=== PATIENT | female | born 1945 | race Caucasian/White ===

== ENCOUNTER 2019-03-13 09:15 | Outpatient (CLI) | payer MEDICARE, OTHER, SELFPAY ==
[2019-03-13 12:37] LABS: Add Urine Microscopic? NO; Appearance Urine Clear (Clear); Bilirubin Urine Negative (Negative); Blood Urine Negative (Negative); Color Urine Yellow (Yellow); Glucose Urine UA Negative (Negative); Ketones Urine Negative (Negative); Leukocyte Esterase Ur Negative LEU/UL (Negative); Nitrate Urine Negative (Negative); Protein Urine Negative (Negative); Specific Grav Ur 1.014 (1.001-1.035); Urobilinogen Urine Negative mg/dL (<2.0)
[2019-03-13 12:48] LABS: Alanine Aminotransferase 17 U/L (4-35); Albumin Level 3.9 g/dL (3.5-5.1); Alkaline Phosphatase 109 U/L (38-126); Aspartate Amino Transferase 24 U/L (14-36); Bilirubin,Total 0.4 mg/dL (0.2-1.3); Blood Urea Nitrogen 19 mg/dL (7-17); CRP 1.3 mg/dL (<1.0); Calcium 9.8 mg/dL (8.4-10.2); Carbon Dioxide 29 mmol/L (22-30); Chloride 97 mmol/L (98-107); Estimated Glomerular Filt Rate > 60; Glucose 97 mg/dL (65-105); Potassium 4.3 mmol/L (3.4-5.0); Sodium 136 mmol/L (137-145)
== END 2019-03-13 09:16 | disposition home or self-care (01) ==
PROVIDERS: PCP Family Medicine; Visit Provider Internal Medicine
DX: L40.50 Arthropathic psoriasis, unspecified (principal)
CPT/HCPCS: 36415; 80053; 81003; 86140

== ENCOUNTER 2019-06-10 09:21 | Outpatient (CLI) | payer MEDICARE, OTHER, SELFPAY ==
--- NOTE | ~2019-06-10 | CT_ITS ---
EXAMINATION: CT chest w con EXAM DATE: 06/10/2019 09:53 INDICATION: Breast cancer. Lung nodule follow-up. Shortness of breath and cough. COPD. TECHNIQUE: Spiral CT of the chest following intravenous injection of 75 mL Omnipaque 350. Axial, cor onal and sagittal images were reviewed. Coronal maximum intensity pixel images of chest reviewed. T luc dose-length product (DLP) for this examination was 230.38 mGy-cm. The exposure was tailored accor ding to patient size (auto mA exposure control), and iterative reconstruction (ASIR) was used as jose tional dose reduction technique. Comparison is made to prior examination from 12/24/2018. FINDINGS: The lingular nodule has increased in size, measuring about 2.0 x 1.0 cm, and the previousl y seen left lower lobe periaortic nodule has also increased in size, measuring about 1.8 x 1.4 cm. Th ere is a 4 mm right lower lobe nodule unchanged. There is right upper lobe scarring, partial laminect tiera. There are no pleural or pericardial effusions. Tracheobronchial tree is patent. There is no mediastinal, hilar or axillary lymphadenopathy. There is no pneumothorax. Heart normal in size. There is mild emphysema. No evidence of coronary arterial calcification. Left renal lesion only smal l portion was imaged today, most likely a cyst. There is moderate thoracic spondylosis without osteo blastic or osteolytic lesions identified. IMPRESSION: Interval increase in size of both the left lower lobe periaortic nodule and the lingular nodule, suspicious for malignancy. Mild emphysema. Reviewed, dictated and finalized at location A. IMPRESSION: Interval increase in size of both the left lower lobe periaortic no dule and the lingular nodule, suspicious for malignancy. Mild emphysema.
[2019-06-10 09:48] LABS: Estimated Glomerular Filt Rate > 60
== END 2019-06-10 09:22 | disposition home or self-care (01) ==
LOC: ANHIMG 09:25
PROVIDERS: PCP Family Medicine; Visit Provider Internal Medicine Hematology & Oncology
DX: R91.1 Solitary pulmonary nodule (principal)
CPT/HCPCS: 36415; 71260; Q9967

== ENCOUNTER 2019-06-25 09:07 | Outpatient (CLI) | payer MEDICARE, OTHER, SELFPAY ==
[2019-06-24 16:52] VITALS: BMI 33.0
[2019-06-25] VITALS (10 sets, daily range): BP systolic 125–149; BP diastolic 57–83; PULSE 62–79; RESP 14–18; TEMP 36.3; O2SAT 90–96
--- NOTE | ~2019-06-25 | XR_ITS ---
EXAMINATION: XR chest 1V portable EXAM DATE: 06/25/2019 15:21 INDICATION: 3 hours post lung biopsy. TECHNIQUE: Portable AP frontal chest x-ray was obtained. Comparison is made to prior examination from earlier same date. FINDINGS: Left midlung zone nodule identified. No evidence of postprocedure pneumothorax. The cardiom ediastinal silhouette is prominent but magnified on this AP technique. There are mild bony degener ative changes. IMPRESSION: No evidence postprocedure pneumothorax. Reviewed, dictated and finalized at location A.
--- NOTE | ~2019-06-25 | XR_ITS ---
EXAMINATION: XR chest 1V DATE: 06/25/2019 12:39 INDICATION: Left lung nodule status post percutaneous biopsy. TECHNIQUE: A single frontal view of the chest was obtained. COMPARISON: Chest single view 01/30/2019 FINDINGS: There is a nodule in left midlung zone. No pleural effusion or pneumothorax. The heart size is normal. IMPRESSION: 1. Nodule in left midlung zone suspicious for malignancy. Reviewed, dictated and finalized at location A.
--- NOTE | ~2019-06-25 | CT_ITS ---
EXAMINATION: CT biopsy lung DATE: 06/25/2019 12:53 INDICATION: Lung nodule. TECHNIQUE: The procedure including the risks, benefits, and alternatives and possibility of chest tub e placement were discussed with the patient. Risks discussed included infection, approximately 1/20 r isk of symptomatic hemorrhage beyond mild hemoptysis, approximately 1/3 risk of pneumothorax, approxi mately 1/10 risk of pneumothorax severe enough to warrant chest tube placement, and rarely . The patient understood the risks and agreed to proceed. The patient was placed supine. The skin overlyi ng the left lung was prepped and draped in sterile fashion. Anesthetic was administered with 1% lido sally subcutaneously. A 19 gauge outer needle was advanced under CT guidance to the lesion of intere st. A 20 gauge core biopsy needle was then used to obtain 4 core biopsy specimens. The needle was rem mitchell and the entry site was cleaned and dressed. The mA was adjusted according to patient size. Itera tive reconstruction technique was employed. The dose-length product was 191.79 mGy-cm. There were no immediate complications. FINDINGS: CT images demonstrate the outer needle tip adjacent to a 1.4 cm nodule in the lingula. IMPRESSION: 1. CT-guided core needle biopsy of a 1.4 cm nodule in the lingula. Reviewed, dictated and finalized at location A.
--- NOTE | ~2019-06-25 | XR_ITS ---
EXAMINATION: XR chest 1V portable DATE: 06/25/2019 13:36 INDICATION: Left lung nodule status post percutaneous biopsy. TECHNIQUE: A single frontal view of the chest was obtained. COMPARISON: Chest single view at 1:32 PM FINDINGS: There are nodules in superior lingula and superior segment left lower lobe. No pleural effu rock or pneumothorax. The heart size is normal. IMPRESSION: 1. Nodules in left lung suspicious for malignancy. Reviewed, dictated and finalized at location A.
[2019-06-25 09:51] LABS: Mean Platelet Volume 10.2 fl (7.4-10.4); Platelet Count Result 221 k/mm3 (150-375)
[2019-06-25 10:03] LABS: Prothrombin Time 12.4 Seconds (11.1-14.7)
--- NOTE | 2019-06-25 14:44 | SUR.PHASEII ---
1444 - dr. ray called with pt's O2 sat on RA. ranges from 85%-90%. will continue to monitor.
--- NOTE | 2019-06-25 15:39 | SUR.PHASEII ---
1538 - 3rd xrays results noted. dr. ray okayed for pt to discharge home. pt denies SOB and discomfort. iv dc'd
== END 2019-06-25 09:08 | disposition home or self-care (01) ==
LOC: SURGERY 09:17 → ANHIMG 09:17
PROVIDERS: Radiology Diagnostic Radiology; PCP Family Medicine; Visit Provider Internal Medicine Hematology & Oncology
DX: R91.8 Other nonspecific abnormal finding of lung field (principal); C34.92 Malignant neoplasm of unspecified part of left bronchus or lung
CPT/HCPCS: 32405; 36415; 71045; 77012; 85049; 85610; 88305; 88342

== ENCOUNTER 2019-07-23 07:13 | Outpatient (CLI) | payer MEDICARE, OTHER, SELFPAY ==
--- NOTE | ~2019-07-23 | PE_ITS ---
EXAMINATION: PET skull to mid thigh DATE: 07/23/2019 10:05 INDICATION: Left breast malignant cancer TECHNIQUE: Blood glucose level was 106 mg/dL. 10.078 mCi of 18-fluorodeoxyglucose (18-FDG) was admini stered i.v. Low dose computed tomography (CT) images were acquired from the base of the brain to the proximal thighs for attenuation correction and anatomic localization. Positron emission tomography (P ET) images were acquired in the same distribution beginning 82 minutes after injection. Images includ ing fused PET/CT images were reconstructed in axial, coronal, and sagittal planes. Automated exposure control technique was employed. The dose-length product was 851.30mGy-cm. COMPARISON: 01/15/2019 FINDINGS: Head/neck: There is symmetric increased activity in the oral cavity, palatine tonsils, parotid glands, submandi bular glands, laryngeal muscles and ocular muscles without CT correlate, likely physiologic. No patho logically enlarged cervical lymphadenopathy or suspicious foci of increased FDG uptake in the visuali zed head or neck. Chest: Interval increase in size of a previously 1.8 x 0.6 cm, now 2.1 x 1.2 cm FDG avid spiculated nodule a t the lingula with maximal SUV of 4.7. Additional 2.2 x 1.5 cm nodule in the superior segment of the left lower lobe with maximal SUV of 12.3 which is also increased in size from 1.3 x 1.0 cm. Partial r ight upper lobectomy with suture line along the right major fissure. No interval change in an 8 mm no dule in the posterior segment of the right upper lobe which is without increased FDG uptake. There is respiratory motion with scattered mild atelectasis as well as small regions of more lucent air micheal ing related to small airway disease. No pneumonia or new pulmonary nodules identified. No pleural eff usion. Cardiomegaly. Lipomatous hypertrophy of the atrial septum. No pericardial effusion. No patholo gically enlarged or FDG avid thoracic lymphadenopathy. Abdomen/pelvis/proximal thighs: Physiologic renal accumulation and excretion of FDG activity in the kidneys, bladder and along portio ns of ureters. 3.8 cm photopenic cyst at the upper pole of the left kidney. Normal degree and heterog enous pattern of increased uptake throughout the liver without radiologic correlate or dominant FDG a vid lesion. The gallbladder, pancreas, spleen and bilateral adrenal glands are normal. Mild uptake sc attered throughout the bowels without radiologic correlate, also likely physiologic. There is mild co lonic diverticulosis with a sigmoid predominance. There is no adjacent inflammatory change to suggest diverticulitis. Bladder, anteverted uterus and bilateral adnexa are unremarkable. Musculoskeletal: Severe spondylosis in the cervical, thoracic and lumbar spine. 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 No suspicious lytic, bl astic or FDG avid bone lesions. IMPRESSION: 1. Interval increase in size of 2 spiculated FDG avid nodules in the left lower lobe and lingula most concerning for impression of metastatic disease with differential including primary lung cancer or i nfectious/inflammatory nodules. 2. No other lesions suspicious for metastatic disease. Reviewed, dictated and finalized at location A. IMPRESSION: 1. Interval increase in size of 2 spiculated FDG avid nodules in the left lower lobe and lingula most concerning for impression of metastatic disease with dif ferential including primary lung cancer or infectious/inflammatory nodules. 2. No other lesions suspicious for metastatic disease.
[2019-07-23 07:47] LABS: Glucose Point of Care 106 (65-105)
== END 2019-07-23 07:14 | disposition home or self-care (01) ==
PROVIDERS: PCP Family Medicine; Visit Provider Internal Medicine Hematology & Oncology
DX: C50.812 Malignant neoplasm of overlapping sites of left female breast (principal); Z17.0 Estrogen receptor positive status [ER+]; R91.8 Other nonspecific abnormal finding of lung field
CPT/HCPCS: 78815; A9552

== ENCOUNTER 2019-09-19 09:09 | Outpatient (CLI) | payer MEDICARE, OTHER, SELFPAY ==
--- NOTE | ~2019-09-19 | MM_ITS ---
EXAMINATION: MM screening maggy BI w que HISTORY: Screening TECHNIQUE: Craniocaudal and mediolateral oblique 3-D tomosynthesis images were obtained and synthetic 2-D images were generated. CAD analysis was submitted and interpreted. COMPARISON: Comparison to multiple prior studies sequentially, with oldest reviewed study dated 08/05. BREAST PARENCHYMAL COMPOSITION: There are scattered areas of fibroglandular density. FINDINGS: There is no evidence of suspicious mass, calcification, or architectural distortion to sugg est malignancy in either breast. There has been no suspicious interval change. IMPRESSION: 1. No mammographic evidence of malignancy. 2. Recommend routine screening mammography in one year. BI-RADS Category 1: Negative Reviewed, dictated and finalized at location A.
== END 2019-09-19 09:10 | disposition home or self-care (01) ==
LOC: ANHIMG 09:10
PROVIDERS: PCP Family Medicine; Visit Provider Internal Medicine Hematology & Oncology
DX: Z12.31 Encounter for screening mammogram for malignant neoplasm of breast (principal)
CPT/HCPCS: 77063; 77067

== ENCOUNTER 2019-10-25 09:26 | Outpatient (CLI) | payer MEDICARE, SELFPAY ==
[2019-10-25 09:58] LABS: Hematocrit 44.3 % (37.0-47.0); Hemoglobin 13.7 g/dL (12.0-15.0); Mean Corpuscular HGB Conc 30.9 g/dl (32-36); Mean Corpuscular Hemoglobin 26.3 pg (26-34); Mean Corpuscular Volume 85.2 fl (80-100); Platelet Count Result 241 k/mm3 (150-375); Red Cell Distribution Width 18.3 % (11.5-14.5); White Blood Count 7.8 K/mm3 (4.5-10.0)
[2019-10-25 11:37] LABS: Alanine Aminotransferase 12 U/L (4-35); Albumin Level 3.9 g/dL (3.5-5.1); Alkaline Phosphatase 100 U/L (38-126); Anion Gap 6 mmol/L (8-16); Aspartate Amino Transferase 20 U/L (14-36); Bilirubin,Total 0.3 mg/dL (0.2-1.3); Blood Urea Nitrogen 14 mg/dL (7-17); Calcium 9.6 mg/dL (8.4-10.2); Carbon Dioxide 31 mmol/L (22-30); Chloride 100 mmol/L (98-107); Estimated Glomerular Filt Rate > 60; Glucose 130 mg/dL (65-105); Potassium 4.7 mmol/L (3.4-5.0); Sodium 137 mmol/L (137-145)
== END 2019-10-25 09:27 | disposition home or self-care (01) ==
PROVIDERS: PCP Family Medicine; Visit Provider Internal Medicine
DX: L40.50 Arthropathic psoriasis, unspecified (principal); M19.90 Unspecified osteoarthritis, unspecified site
CPT/HCPCS: 36415; 80053; 85027

== ENCOUNTER 2019-11-21 10:30 | Outpatient (NON) | payer MEDICARE, OTHER, SELFPAY ==
[2019-11-22 13:59] LABS: SARS-CoV-2 RNA PCR Negative
== END 2019-11-21 10:31 ==
PROVIDERS: PCP Family Medicine; Visit Provider Family Medicine
DX: Z20.828 Contact with and (suspected) exposure to other viral communicable diseases (principal); R68.89 Other general symptoms and signs
CPT/HCPCS: 87635; C9803; U0003

== ENCOUNTER 2019-11-29 08:43 | Outpatient (CLI) | payer MEDICARE, OTHER, SELFPAY ==
--- NOTE | ~2019-11-29 | CT_ITS ---
EXAMINATION: CT chest w con DATE: 11/29/2019 09:31 INDICATION: Non-small cell cancer of the left lung TECHNIQUE: Transaxial computed tomographic images of the chest were obtained after the administration of 75 cc of Omnipaque 350 intravenous contrast. The dose-length product (DLP) was 216.53 mGy-cm. Ite rative reconstruction was used. COMPARISON: 07/23/2019, 06/10/2019 FINDINGS: There are changes of right partial pneumonectomy. A 1.6 x 1.0 cm nodule in the lingula has decreased in size, previously measuring 2.1 x 1.2 cm. A 1.1 x 0.6 cm nodule in the superior segment o f the left lower lobe previously measured 2.2 x 1.5 cm. No new pulmonary nodules are identified. Ther e is no pleural effusion or pneumothorax. Mild dependent atelectasis is noted. There is stable cardio megaly. No pathologically enlarged thoracic lymph nodes are identified. There is severe thoracic spon dylosis. IMPRESSION: 1. Interval response to therapy as evidenced by decrease in size of nodules in the lingula and superi or segment of the left lower lobe. Reviewed, dictated and finalized at location A. IMPRESSION: 1. Interval response to therapy as evidenced by decrease in size of nodules in the lingula and superior segment of the left lower lobe.
[2019-11-29 09:26] LABS: Estimated Glomerular Filt Rate > 60
== END 2019-11-29 08:44 | disposition home or self-care (01) ==
PROVIDERS: PCP Family Medicine; Visit Provider Internal Medicine Hematology & Oncology
DX: C34.92 Malignant neoplasm of unspecified part of left bronchus or lung (principal)
CPT/HCPCS: 71260; Q9967

== ENCOUNTER 2019-12-04 09:14 | Outpatient (CLI) | payer MEDICARE, OTHER, SELFPAY ==
[2019-12-04 09:33] LABS: Hematocrit 44.3 % (37.0-47.0); Hemoglobin 13.6 g/dL (12.0-15.0); Mean Corpuscular HGB Conc 30.7 g/dl (32-36); Mean Corpuscular Hemoglobin 26.5 pg (26-34); Mean Corpuscular Volume 86.4 fl (80-100); Mean Platelet Volume 9.5 fl (7.4-10.4); Platelet Count Result 230 k/mm3 (150-375); Red Blood Count 5.13 M/mm3 (4.2-5.4); Red Cell Distribution Width 19.9 % (11.5-14.5); White Blood Count 6.3 K/mm3 (4.5-10.0)
[2019-12-04 09:40] LABS: Blood Urea Nitrogen 12 mg/dL (8-26); Carbon Dioxide 30 mmol/L (22-30); Chloride 97 mmol/L (98-109); Estimated Glomerular Filt Rate > 60; Glucose 114 mg/dL (70-105); Potassium 3.6 mmol/L (3.5-4.9); Sodium 139 mmol/L (138-146)
[2019-12-04 11:05] LABS: Alanine Aminotransferase 14 U/L (4-35); Albumin Level 3.9 g/dL (3.5-5.1); Alkaline Phosphatase 100 U/L (38-126); Anion Gap 7 mmol/L (8-16); Aspartate Amino Transferase 22 U/L (14-36); Bilirubin,Total 0.3 mg/dL (0.2-1.3); Blood Urea Nitrogen 13 mg/dL (7-17); Calcium 9.7 mg/dL (8.4-10.2); Carbon Dioxide 33 mmol/L (22-30); Chloride 99 mmol/L (98-107); Estimated Glomerular Filt Rate > 60; Glucose 117 mg/dL (65-105); Potassium 3.9 mmol/L (3.4-5.0); Sodium 139 mmol/L (137-145)
== END 2019-12-04 09:15 | disposition home or self-care (01) ==
LOC: ANHLAB 09:16
PROVIDERS: PCP Family Medicine; Visit Provider Internal Medicine Hematology & Oncology
DX: C34.92 Malignant neoplasm of unspecified part of left bronchus or lung (principal)
CPT/HCPCS: 36415; 80048; 80053; 85027

== ENCOUNTER 2020-02-21 06:51 | Outpatient (CLI) | payer MEDICARE, OTHER, SELFPAY ==
[2020-02-21 07:40] VITALS: PULSE 88; O2SAT 90
[2020-02-21 07:45] VITALS: PULSE 97; O2SAT 85
[2020-02-21 07:50] VITALS: PULSE 100; O2SAT 86
[2020-02-21 07:55] VITALS: PULSE 104; O2SAT 88
[2020-02-21 08:00] VITALS: PULSE 108; O2SAT 90
[2020-02-21 08:15] VITALS: PULSE 88; O2SAT 90
--- NOTE | 2020-02-21 10:00 | HOMEO2EVAL ---
Home Oxygen Evaluation RC: Home Oxygen (O2) Evaluation Start: 02/21/20 09:57 Freq: Status: Active Protocol: RPE Activity Type Activity Date Activity User E-Sign Co-Sign Detail Recorded Client Recorded Date Recorded By Document 02/21/20 07:40 [email or web address] 02/21/20 10:00 DJO Document 02/21/20 07:45 [email or web address] 02/21/20 10:00 DJO Document 02/21/20 07:50 [email or web address] [email or web address] 02/21/20 10:00 DJO Document 02/21/20 07:55 [email or web address] [email or web address] 02/21/20 10:00 DJO Document 02/21/20 08:00 [email or web address] [email or web address] 02/21/20 10:00 DJO Document 02/21/20 08:15 [email or web address] [email or web address] 02/21/20 10:00 DJO 02/21/20 02/21/20 02/21/20 07:40 07:45 07:50 Home O2 Evaluation Test Phase Resting Exercise Exercise Oxygen Delivery Room Air Room Air Nasal Cannula Oxygen Flow Rate (L/min) 1 Pulse Oximetry (90-100 %) 90 85 L 86 L Pulse Rate (60-100 beats/min) 88 97 100 Activity Tolerance Rating of Perceived Dyspnea (PD) Ambulation Distance (feet) Treatment Charges O2 Evaluation 02/21/20 02/21/20 02/21/20 07:55 08:00 08:15 Home O2 Evaluation Test Phase Exercise Exercise Resting Oxygen Delivery Nasal Cannula Nasal Cannula Room Air Oxygen Flow Rate (L/min) 2 3 Pulse Oximetry (90-100 %) 88 L 90 90 Pulse Rate (60-100 beats/min) 104 H 108 H 88 Activity Tolerance Good Rating of Perceived Dyspnea (PD) +1 Mild, Noticeable to the Participant but Not to an Observer Ambulation Distance (feet) 750 Treatment Charges
--- NOTE | 2020-02-21 11:07 | WPDPFTINT ---
PFT Interpretation This is a pulmonary function test with pre and post-bronchodilator spirometry, plethysmography and diffusing capacity. The test was performed and results interpreted in accordance with the 2019 and 2005 ATS/ERS Task Force guidelines respectively using the Aren/Roseanna reference equations. Findings: Spirometry: There is decreased maximal expiratory airflow at all lung volumes with a concave expiratory flow tracing. The pre-bronchodilator FVC is 1.56 L, 67% predicted. The pre-bronchodilator FEV1 is 0.94 L, 58% predicted. The FEV1:FVC ratio is 60%. The post-bronchodilator FVC is 1.79 L, representing a 15% increase. The post-bronchodilator FEV1 is 1.04 L, representing a 10% increase. Plethysmography: The total lung capacity is 2.82 L, 71% predicted. The functional residual capacity is 1.29 L, 62% predicted. The residual volume is 1.26 L, 78% predicted. Diffusing capacity: The absolute diffusing capacity is 6.6, 35% predicted. The diffusing capacity corrected for alveolar volume is 2.81, 79% predicted. Impression: There is a combined obstructive and restrictive ventilatory abnormality. There are no guidelines to assign the severity of obstruction or restriction with a combined abnormality. In my opinion, given the concaved expiratory flow tracing, decreased FEV1:FVC ratio and a significant response to bronchodilators, I would say there is a moderate obstructive abnormality and a minimal restrictive abnormality resulting in a moderately severe reduction in the FEV1. There is significant improvement after inhaling a single dose of albuterol. The absolute diffusing capacity is severely decreased and remains mildly decreased when corrected for alveolar volume. There are no prior studies for comparison.
== END 2020-02-21 06:52 | disposition home or self-care (01) ==
LOC: ANHPFT 06:52
PROVIDERS: PCP Family Medicine; Visit Provider Internal Medicine Critical Care Medicine
DX: J44.9 Chronic obstructive pulmonary disease, unspecified (principal); Z94.2 Lung transplant status
CPT/HCPCS: 94060; 94618; 94726; 94729

== ENCOUNTER 2020-03-04 07:47 | Outpatient (CLI) | payer MEDICARE, OTHER, SELFPAY ==
--- NOTE | ~2020-03-04 | CT_ITS ---
EXAMINATION: CT chest w con EXAM DATE: 03/04/2020 09:08 INDICATION: Left-sided non-small cell lung cancer. TECHNIQUE: Spiral CT of the chest following intravenous injection of 75 mL Omnipaque 350. Axial, cor onal and sagittal images were reviewed. Coronal maximum intensity pixel images of chest reviewed. T he dose-length product (DLP) for this examination was 207.89 mGy-cm. The exposure was tailored accor ding to patient size (auto mA exposure control), and iterative reconstruction (ASIR) was used as jose tional dose reduction technique. Comparison is made to prior examination from 11/29/2019. FINDINGS: There is right upper lobe scarring, density material consistent with partial pneumonectomy . There is lingular and left lower lobe scarring, in location of previously treated malignancies. Int erval decrease in size of right upper lobe nodule measuring 5 mm (was about 6 or 7 on prior study). T here is mild to moderate emphysema. There are no pleural or pericardial effusions. Tracheobronchial tree is patent. There is no media stinal, hilar or axillary lymphadenopathy. There is no pneumothorax. Heart normal in size. Ther e is mild coronary arterial calcification, arterial sclerosis. Cholecystectomy. There is moderate t horacic spondylosis without osteoblastic or osteolytic lesions identified. IMPRESSION: 1. Right upper lobe 5 mm nodule, slight decrease in size. 2. Lingular and left lower lobe scarring, treated malignancy. 3. Stable right upper lobe surgical changes. 4. Mild to moderate emphysema. Reviewed, dictated and finalized at location A. SERVICER
[2020-03-04 08:55] LABS: Estimated Glomerular Filt Rate > 60
== END 2020-03-04 07:48 | disposition home or self-care (01) ==
PROVIDERS: Visit Provider Internal Medicine Hematology & Oncology
DX: C34.92 Malignant neoplasm of unspecified part of left bronchus or lung (principal)
CPT/HCPCS: 71260; Q9967

== ENCOUNTER 2020-04-21 09:57 | Outpatient (CLI) | payer MEDICARE, OTHER, SELFPAY ==
[2020-04-21 10:13] LABS: Hematocrit 44.8 % (37.0-47.0); Hemoglobin 14.3 g/dL (12.0-15.0); Mean Corpuscular HGB Conc 31.9 g/dl (32-36); Mean Corpuscular Hemoglobin 27.9 pg (26-34); Mean Corpuscular Volume 87.5 fl (80-100); Mean Platelet Volume 9.4 fl (7.4-10.4); Platelet Count Result 221 k/mm3 (150-375); Red Blood Count 5.12 M/mm3 (4.2-5.4); Red Cell Distribution Width 18.9 % (11.5-14.5); White Blood Count 8.4 K/mm3 (4.5-10.0)
[2020-04-21 10:19] LABS: Add Urine Microscopic? YES; Appearance Urine Clear (Clear); Color Urine Yellow (Yellow)
[2020-04-21 10:20] LABS: Bilirubin Urine Negative (Negative); Blood Urine Negative (Negative); Glucose Urine UA Negative (Negative); Ketones Urine Negative (Negative); Nitrate Urine Negative (Negative); Protein Urine Negative (Negative)
[2020-04-21 10:21] LABS: Leukocyte Esterase Ur Trace LEU/UL (Negative); Urobilinogen Urine 0.2 mg/dL (<2.0)
[2020-04-21 10:34] LABS: RBC Urine None seen /hpf (0-2); Squamous Epithelial Cell Urine Few /hpf (Few); WBC Urine 0-3 /hpf (0-3)
[2020-04-21 10:35] LABS: Bacteria Urine None seen /hpf
[2020-04-21 12:48] LABS: Alanine Aminotransferase 18 U/L (4-35); Albumin Level 3.9 g/dL (3.5-5.1); Alkaline Phosphatase 92 U/L (38-126); Anion Gap 3 mmol/L (8-16); Aspartate Amino Transferase 30 U/L (14-36); Bilirubin,Total 0.4 mg/dL (0.2-1.3); Blood Urea Nitrogen 17 mg/dL (7-17); CRP 1.3 mg/dL (<1.0); Calcium 9.8 mg/dL (8.4-10.2); Carbon Dioxide 36 mmol/L (22-30); Chloride 101 mmol/L (98-107); Estimated Glomerular Filt Rate > 60; Glucose 109 mg/dL (65-105); Potassium 3.9 mmol/L (3.4-5.0); Sodium 140 mmol/L (137-145)
[2020-04-21 13:15] LABS: Erythrocyte Sedimentation Rate 17 mm/hr (0-20)
== END 2020-04-21 09:58 | disposition home or self-care (01) ==
LOC: ANHLAB 09:58
PROVIDERS: PCP Physician Assistant; Visit Provider Internal Medicine
DX: L40.50 Arthropathic psoriasis, unspecified (principal); M19.90 Unspecified osteoarthritis, unspecified site; L40.9 Psoriasis, unspecified; Z79.899 Other long term (current) drug therapy
CPT/HCPCS: 36415; 80053; 81001; 85027; 85652; 86140

== ENCOUNTER 2020-05-18 08:38 | Outpatient (CLI) | payer MEDICARE, OTHER, SELFPAY ==
--- NOTE | ~2020-05-18 | CT_ITS ---
EXAMINATION: CT diagnostic chest w con EXAM DATE: 05/18/2020 09:22 INDICATION: Left lung non-small cell lung cancer follow-up. Breast cancer. TECHNIQUE: Spiral CT of the chest following intravenous injection of 75 mL Omnipaque 350. Axial, cor onal and sagittal images were reviewed. Coronal maximum intensity pixel images of chest reviewed. Latesha calle dose-length product (DLP) for this examination was 209.37 mGy-cm. The exposure was tailored accor ding to patient size (auto mA exposure control), and iterative reconstruction (ASIR) was used as jose tional dose reduction technique. Comparison is made to prior examination from 03/04/2020. FINDINGS: Partial right upper lobe pneumonectomy, with suture material. There is approximately 6 mm nodular density in the suprahilar region, stable. Mild to moderate emphysema. There has been interval development of multifocal bibasilar and left upper lobe airspace disease most likely acute infectious process/pneumonia. Please clinically correlate for any acute symptoms. There is segmental lingular atelectasis which is also new. Previously described treated lingular and left lower lobe chronic scarring less well appreciated due to this acute airspace disease. There are no pleural or pericardial effusions. Tracheobronchial tree is patent. There is no media stinal, hilar or axillary lymphadenopathy. There is no pneumothorax. Heart normal in size. Ther e is mild coronary arterial calcification, arterial sclerosis. Upper abdomen is unremarkable. Ther e is thoracic spondylosis without osteoblastic or osteolytic lesions identified. IMPRESSION: 1. Development of scattered multifocal bibasilar and left upper lobe opacities, appearance most cons istent with pneumonia. Correlate for any acute symptoms. 2. Lingular subsegmental atelectasis. 3. Stable right upper lobe surgical changes, 5 mm nodular density. 4. Mild to moderate emphysema. I discussed suspicion of acute airspace disease with Bette, a nurse in the office of the ordering cl inician David Michaud MD at 05/18/2020 10:51 CDT. Reviewed, dictated and finalized at location A. IMPRESSION: 1. Development of scattered multifocal bibasilar and left upper lobe opacities , appearance most consistent with pneumonia. Correlate for any acute symptoms. 2. Lingular subsegmental atelectasis. 3. Stable right upper lobe surgical changes, 5 mm nodular density. 4. Mild to moderate emphysema. I discussed suspicion of acute airspace disease with Bette, a nurse in the off ice of the ordering clinician David Michaud MD at 05/18/2020 10:51 CDT.
== END 2020-05-18 08:39 | disposition home or self-care (01) ==
PROVIDERS: PCP Physician Assistant; Visit Provider Internal Medicine Hematology & Oncology
DX: C34.92 Malignant neoplasm of unspecified part of left bronchus or lung (principal); J43.9 Emphysema, unspecified
CPT/HCPCS: 71260; Q9967

== ENCOUNTER 2020-07-27 08:27 | Outpatient (CLI) | payer MEDICARE, OTHER, SELFPAY ==
--- NOTE | ~2020-07-27 | CT_ITS ---
EXAMINATION: CT diagnostic chest w con EXAM DATE: 07/27/2020 09:06 INDICATION: Non-small cell lung cancer. TECHNIQUE: Spiral CT of the chest following intravenous injection of 75 mL Omnipaque 350. Axial, cor onal and sagittal images of the chest were reviewed. Coronal maximum intensity pixel images of chest reviewed. The dose-length product (DLP) for this examination was 170.06 mGy-cm. The exposure was t ailored according to patient size (auto mA exposure control), and iterative reconstruction (ASIR) was used as additional dose reduction technique. Comparison is made to prior examination from 05/18/2020. FINDINGS: Right upper lobe partial pneumonectomy, stable surgical changes and 6 mm suprahilar nodule on image 31. Previously seen basilar pneumonia, has resolved, but there is some residual lingular agudelo bsegmental atelectasis. Mild to moderate emphysema. There are no pleural or pericardial effusions. Tracheobronchial tree is patent. There is no mediastinal, hilar or axillary lymphadenopathy. Ther e is no pneumothorax. Mild cardiomegaly. There is mild coronary arterial calcification, arterial s clerosis. Incompletely imaged left renal lesion measuring fluid density, probably cyst up to 3.4 cm. There is moderate thoracic spondylosis without osteoblastic or osteolytic lesions identified. IMPRESSION: 1. Resolution of previously seen basilar pneumonia. Some residual lingular subsegmental atelectasis. 2. Stable right upper lobe scarring, suprahilar nodule. 3. Mild to moderate emphysema. Reviewed, dictated and finalized at location B. IMPRESSION: 1. Resolution of previously seen basilar pneumonia. Some residual lingular sub segmental atelectasis. 2. Stable right upper lobe scarring, suprahilar nodule. 3. Mild to moderate emphysema.
[2020-07-27 09:01] LABS: Estimated Glomerular Filt Rate > 60
== END 2020-07-27 08:28 | disposition home or self-care (01) ==
PROVIDERS: PCP Physician Assistant; Visit Provider Internal Medicine Hematology & Oncology
DX: C34.92 Malignant neoplasm of unspecified part of left bronchus or lung (principal); R91.8 Other nonspecific abnormal finding of lung field; J43.9 Emphysema, unspecified
CPT/HCPCS: 71260; Q9967

== ENCOUNTER 2020-08-13 12:31 | Outpatient (CLI) | payer MEDICARE, OTHER, SELFPAY ==
--- NOTE | ~2020-08-13 | MMUS_ITS ---
EXAMINATION: MM diagnostic maggy BI w que, US breast BI complete HISTORY: Left breast pain for 3 months. TECHNIQUE: Additional 3-D tomosynthesis images of the breasts were performed and synthetic 2-D images were generated. CAD analysis was submitted and interpreted. High resolution bilateral complete breas t ultrasound was performed. COMPARISON: Comparison to multiple prior studies sequentially, with oldest reviewed study dated 08/05. BREAST PARENCHYMAL COMPOSITION: Breast composed of scattered areas of fibroglandular density. FINDINGS: MAMMOGRAPHIC FINDINGS: There is a small circumscribed mass in the lower inner quadrant of the right breast measuring 8 mm. N o other masses, calcifications or architectural distortion are identified in either breast to suggest malignancy. ULTRASOUND: Complete right breast ultrasound: At 3:00, 5 cm from the nipple, there is an 8 mm septated cyst. At 6 :00, 4 cm from the nipple there is a 5 mm oval circumscribed hypoechoic mass with parallel orientatio n, no posterior features and no internal vascularity, likely benign. At 8:00, 3 cm from the nipple, t here is an oval circumscribed hypoechoic mass without internal vascularity or posterior features john uring 3 mm, likely benign. Complete left breast ultrasound: Normal heterogeneous echotexture without focal mass. IMPRESSION: 1. No evidence for malignancy in the left breast. 2. Probable benign sonographic masses of the right breast. Complicated cyst corresponds to focal mass seen on mammography at the 3:00 position of the right breast. Six-month follow-up right breast ultra sound recommended. BI-RADS category 3, probably benign findings. Reviewed, dictated and finalized at location A. IMPRESSION: 1. No evidence for malignancy in the left breast. 2. Probable benign sonographic masses of the right breast. Complicated cyst cor responds to focal mass seen on mammography at the 3:00 position of the right br east. Six-month follow-up right breast ultrasound recommended. BI-RADS category 3, probably benign findings.
== END 2020-08-13 12:32 | disposition home or self-care (01) ==
LOC: ANHIMG 12:34
PROVIDERS: PCP Family Medicine; Visit Provider Family Medicine
DX: N64.4 Mastodynia (principal); Z85.3 Personal history of malignant neoplasm of breast
CPT/HCPCS: 76641; 77062; 77066; G0279

== ENCOUNTER 2020-11-16 07:57 | Outpatient (CLI) | payer MEDICARE, OTHER, SELFPAY ==
--- NOTE | ~2020-11-16 | CT_ITS ---
EXAMINATION: CT diagnostic chest w con EXAM DATE: 11/16/2020 08:41 INDICATION: Non small cell cancer of LT lung. TECHNIQUE: Spiral CT of the chest following intravenous injection of 75 mL Omnipaque 350. Axial, cor onal and sagittal images of the chest were reviewed. Coronal maximum intensity pixel images of chest reviewed. The dose-length product (DLP) for this examination was 179.36 mGy-cm. The exposure was t ailored according to patient size (auto mA exposure control), and iterative reconstruction (ASIR) was used as additional dose reduction technique. Comparison is made to prior examination from 07/27/2020. FINDINGS: Surgical changes from partial right-sided pneumonectomy. Small amount of right suprahilar scarring unchanged. There is mild emphysema and hyperinflation. There are no pleural or pericardial e ffusions. Tracheobronchial tree is patent. There is no mediastinal, hilar or axillary lymphadenop athy. There is no pneumothorax. Heart normal in size. There is mild coronary arterial calcifica tion, arterial sclerosis. Incompletely imaged right renal lesion, imaged portion consistent with cys t measuring 3.4 cm. There is thoracic spondylosis without osteoblastic or osteolytic lesions identif ied. Possible subacute left 3rd, 4th rib fractures anterolaterally. IMPRESSION: 1. Stable appearance to partial right pneumonectomy, suprahilar nodular scarring. 2. Mild emphysema and hyperinflation. Reviewed, dictated and finalized at location A. IMPRESSION: 1. Stable appearance to partial right pneumonectomy, suprahilar nodular scarri ng. 2. Mild emphysema and hyperinflation.
[2020-11-16 08:33] LABS: Estimated Glomerular Filt Rate > 60
== END 2020-11-16 07:58 | disposition home or self-care (01) ==
PROVIDERS: PCP Family Medicine; Visit Provider Internal Medicine Hematology & Oncology
DX: C34.92 Malignant neoplasm of unspecified part of left bronchus or lung (principal); Z90.2 Acquired absence of lung [part of]; J43.9 Emphysema, unspecified; R91.8 Other nonspecific abnormal finding of lung field
CPT/HCPCS: 71260; Q9967

== ENCOUNTER 2020-12-14 08:39 | Outpatient (CLI) | payer MEDICARE, OTHER, SELFPAY ==
--- NOTE | ~2020-12-14 | DEXA_ITS ---
Bone Density Report Name: BrendaMay Age: 75 Sex: Female Ethnicity: White Date of : 1945 Indication: postmenopausal; height loss; inflammatory bowel disease; prior fracture; asthma or emphysema; rheumatoid arthritis; Referring Provider: David Michaud Study: Bone densitometry was performed. Exam Date: December 14, 2020 Accession number: [id number] Bone Density: Region BMD T-score Z-score Classification AP Spine (L1-L4) 1.067 0.2 2.5 Normal Femoral Neck (Left) 0.601 -2.2 -0.3 Osteopenia Total Hip (Left) 0.744 -1.6 0.1 Osteopenia Total Hip Bilateral Avg 0.764 -1.5 0.3 Osteopenia Femoral Neck (Right) 0.601 -2.2 -0.3 Osteopenia Total Hip (Right) 0.782 -1.3 0.4 Osteopenia World Health Organization criteria for BMD impression classify patients as: Normal (T-score at or above -1.0), Osteopenia (T-score between -1.0 and -2.5), or Osteoporosis (T-score at or below -2.5). 10-year Fracture Risk: FRAX not reported because: Treated for osteoporosis Clinical Information Provided by Patient: Has had a low trauma fracture Smokes Has rheumatoid arthritis Is being treated for osteoporosis Has used the following medications: Vitamin D, Calcium Has the following medical conditions: Asthma or Emphysema, Inflammatory bowel diseases Patient maximum height was 63 Menopause Age: 57 No regular weight bearing exercise Drinks caffeinated beverages Onset of menses at age 14 Number of children 5 Impression: The patient has low bone mass, based on the Left Femoral Neck T-score. The patient has risk factors, including: smoking, previous fracture. Discussion: It is important to ask patients whether they are taking their medications and to encourage continued and appropriate compliance with their osteoporosis therapies to reduce fracture risk. It is also important to review their risk factors and encourage appropriate calcium and vitamin D intakes, exercise, fall prevention and other lifestyle measures. Follow-Up: Consider a repeat BMD and Vertebral Fracture Assessment (VFA) exam in 2 years or sooner if medically necessary, to reassess this patient's status. Reported by: OLLIE on 12/14/2020 9:00:00 AM. Reviewed, dictated and finalized at location AGladis ALFORD
== END 2020-12-14 08:40 | disposition home or self-care (01) ==
LOC: ANHIMG 08:41
PROVIDERS: PCP Family Medicine; Visit Provider Internal Medicine Hematology & Oncology
DX: M81.8 Other osteoporosis without current pathological fracture (principal); M85.89 Other specified disorders of bone density and structure, multiple sites
CPT/HCPCS: 77080

== ENCOUNTER 2021-02-26 11:34 | Outpatient (CLI) | payer MEDICARE, OTHER, SELFPAY ==
--- NOTE | ~2021-02-26 | MM_ITS ---
EXAMINATION: MM diagnostic maggy BI w que HISTORY: Follow-up right breast mass TECHNIQUE: Additional 3-D tomosynthesis images of the breasts were performed and synthetic 2-D images were generated. CAD analysis was submitted and interpreted. COMPARISON: Comparison to multiple prior studies sequentially, with oldest reviewed study dated 08/06. BREAST PARENCHYMAL COMPOSITION: Breast composed of scattered areas of fibroglandular density. FINDINGS: There are no new masses, calcifications or architectural distortion in the right breast to suggest malignancy. Recommend follow-up targeted right breast ultrasound is recommended on prior exam ination dated 08/13/2020. IMPRESSION: 1. Stable bilateral mammogram. No new masses, calcifications or architectural distortion. 2. Targeted right breast ultrasound recommended. BI-RADS Category 0: Incomplete: Needs additional imaging evaluation. Reviewed, dictated and finalized at location A. STATION IMPRESSION: 1. Stable bilateral mammogram. No new masses, calcifications or architectural d istortion. 2. Targeted right breast ultrasound recommended. BI-RADS Category 0: Incomplete: Needs additional imaging evaluation.
== END 2021-02-26 11:35 | disposition home or self-care (01) ==
PROVIDERS: PCP Family Medicine; Visit Provider Internal Medicine Hematology & Oncology
DX: C50.812 Malignant neoplasm of overlapping sites of left female breast (principal); Z17.0 Estrogen receptor positive status [ER+]; R92.8 Other abnormal and inconclusive findings on diagnostic imaging of breast
CPT/HCPCS: 77062; 77066; G0279

== ENCOUNTER 2021-04-23 12:18 | Outpatient (CLI) | payer MEDICARE, OTHER, SELFPAY ==
--- NOTE | ~2021-04-23 | CT_ITS ---
EXAMINATION: CT diagnostic chest wo con EXAM DATE: 04/23/2021 12:43 INDICATION: Left lung cancer. TECHNIQUE: Spiral CT of the chest without contrast. Axial, coronal and sagittal images of the chest were reviewed. Coronal maximum intensity pixel images of chest reviewed. The dose-length product ( DLP) for this examination was 230.38 mGy-cm. The exposure was tailored according to patient size (au to mA exposure control), and iterative reconstruction (ASIR) was used as additional dose reduction te chnique. Comparison is made to prior examination from 11/16/2020. Correlation was made with PET/CT 07/22. FINDINGS: Stable appearance to partial right pneumonectomy and right suprahilar scarring. The left l ower lobe and lingular nodules with increased FDG activity are without recurrence. There is some scar ring in the lingula. There is mild emphysema and hyperinflation. No evidence of a recurrent nodule i n the lingula There are no pleural or pericardial effusions. Tracheobronchial tree is patent. The re is no mediastinal, hilar or axillary lymphadenopathy. There is no pneumothorax. Heart normal i n size. There is mild coronary arterial calcification, arterial sclerosis. Left renal 3.5 cm cyst. There is moderate thoracic spondylosis without osteoblastic or osteolytic lesions identified. Suba cute left 3rd, 4th rib fractures, some progression in interval healing. Some vague chronic sclerosis in the left L1 pedicle. IMPRESSION: 1. Stable partial right pneumonectomy, regions of scarring. 2. Mild emphysema and hyperinflation. Reviewed, dictated and finalized at location A. ER
== END 2021-04-23 12:19 | disposition home or self-care (01) ==
PROVIDERS: PCP Family Medicine; Visit Provider Internal Medicine Hematology & Oncology
DX: C34.92 Malignant neoplasm of unspecified part of left bronchus or lung (principal); I25.10 Atherosclerotic heart disease of native coronary artery without angina pectoris; I70.90 Unspecified atherosclerosis; M47.814 Spondylosis without myelopathy or radiculopathy, thoracic region; N28.1 Cyst of kidney, acquired; J43.9 Emphysema, unspecified
CPT/HCPCS: 71250

== ENCOUNTER 2021-05-04 15:16 | Outpatient (CLI) | payer MEDICARE, OTHER, SELFPAY ==
--- NOTE | ~2021-05-04 | XR_ITS ---
XR wrist RT min 3V 05/04/2021 16:02 Indication: Osteoarthritis. Right wrist pain. Procedure: 4 views right wrist Comparison: No prior studies for comparison. Findings: There is moderate polyarticular osteoarthritis of the wrist involving the radiocarpal, ulna r carpal, multiple intracarpal, triscaphe and first carpal metacarpal joints. There is also degenerat wendy change of the first MCP and IP joints. There is subchondral cyst formation in the lunate. Impression: 1: Moderate-severe polyarticular osteoarthritis. Reviewed, dictated and finalized at location A. Impression: 1: Moderate-severe polyarticular osteoarthritis.
== END 2021-05-04 15:17 | disposition home or self-care (01) ==
PROVIDERS: PCP Family Medicine; Visit Provider Plastic Surgery
DX: M19.031 Primary osteoarthritis, right wrist (principal); M19.041 Primary osteoarthritis, right hand
CPT/HCPCS: 73110

== ENCOUNTER 2021-05-18 11:05 | Outpatient (CLI) | payer MEDICARE, OTHER, SELFPAY ==
--- NOTE | 2021-05-20 22:01 | WPDSLEEPSTUD ---
Sleep Study Date of Study: 05/18/21 Ordering Provider: Watson Moraes APRN Interpreting Physician: Mia Vaz MD Sleep Study Type: Polysomnogram Height: 1.52 m Weight: 75.75 kg Body Mass Index: 32.5 Neck Circumference (inches): 16 [place]: 12 Reason for Sleep Study Chronically tired, on oxygen at 3 L at home, non restorative sleep, napping Sleep History Mayerage is a 75 year old female with COPD, chronic oxygen use since February of 2020, lung cancer currently in remission, iron deficiency anemia, and psoriatic arthritis. She does not awaken from sleep feeling short of breath or awaken at night with heartburn, belching or coughing. She occasionally snores and occasionally this is loud enough that others complain about it. She frequently has trouble sleeping with a cold. She does not wake up gasping for breath at night. She frequently has breathing problems at night observed by others. She rarely sweats excessively at night. She constantly falls asleep during the day although never involuntarily or while driving. She does not have loss of muscle tone with strong emotion. She occasionally has daytime difficulties due to excessive sleepiness. She does not feel paralyzed on waking or falling asleep and does not have vivid dreamlike scenes upon awakening or falling asleep. She does not feel afraid to go to sleep. She occasionally has nightmares and occasionally remembers her dreams. She frequently has racing thoughts. She occasionally feels sad or depressed. She constantly has anxiety. She rarely has muscular tension. She occasionally notices parts of her body jerking. She does not kick at night, does not have crawling or aching feelings in her legs and does not have any kind of leg pain at night. She occasionally has morning jaw pain. She does not grind her teeth during sleep. She constantly is bothered by pain during the day. She occasionally is awakened by pain at night. She constantly wakes up feeling stiff in the morning with sore achy muscles. She does not wake up with pain in the neck and spine. She has fatigue, memory problems, concentration difficulties, nightmares and headaches. Normal bedtime is variable. She does not have a set bedtime. She wakes about twice at night, and stays awake for several hours when she wakes during the night. While awake, she watches TV and goes to the bathroom. She wakes in the morning around 6:00 a.m.. She takes naps in the afternoon or evening. A short nap may be refreshing. She is usually drowsy for 2 hours after waking. She feels better in the afternoon compared to other times of day. Habits: Tobacco: currently 2-3 cigarettes a day. Caffeine: 1 pot of coffee a day. No alcohol or recreational drugs. FORMERLY [facility] Past Medical History Medical History (Updated 05/20/21 @ 22:54 by Mia Vaz MD) Anxiety Arthritis Breast cancer COPD (chronic obstructive pulmonary disease) Dependence on continuous supplemental oxygen Encounter for medication management GERD (gastroesophageal reflux disease) Irritable bowel disease Lung cancer Neuropathy Other specified counseling Psoriatic arthritis Tobacco abuse Surgical History Surgical History H/O cataract extraction History of appendectomy History of carpal tunnel release History of knee replacement History of liver biopsy History of lung surgery History of tonsillectomy Hx of cholecystectomy S/P lumpectomy of breast Family History Family History Mother Diabetes mellitus Family history of lung cancer Family history of malignant neoplasm of uterus Family history of psoriasis Family history of malignant neoplasm Sibling Diabetes mellitus Father Family history of chronic obstructive pulmonary disease Family history of lung cancer Hypertension Family history of cardiovascular disease Grandparent Fam
[2021-05-20 22:03] VITALS: BMI 32.5
== END 2021-05-19 07:30 | disposition home or self-care (01) ==
LOC: ANHCSM 11:05
PROVIDERS: PCP Family Medicine; Visit Provider Nurse Practitioner Family
DX: G47.9 Sleep disorder, unspecified (principal); R06.83 Snoring; G47.61 Periodic limb movement disorder; Z68.32 Body mass index [BMI] 32.0-32.9, adult
CPT/HCPCS: 95810

== ENCOUNTER 2021-05-26 12:33 | Outpatient (CLI) | payer MEDICARE, OTHER, SELFPAY ==
[2021-05-26] VITALS (7 sets, daily range): PULSE 98–116; O2SAT 78–93
[2021-05-26 13:18] LABS: Alveolar/Arterial O2 Gradient 77.4 mmHg; Base Excess ABG 5.4 mEq/l (+/-2.0); Fractional Inspired Oxygen 28 %; Oxygen Content ABG 14.9 %vol (16.0-22.0); Oxygen Saturation ABG 92.3 % (95.0-100.0); PCO2 ABG 49.8 mmHg (35.0-45.0); PO2 ABG 63.5 mmHg (80.0-100.0); PO2 FiO2 Ratio Arterial Blood 2.27 %; Total Hemoglobin 12.1 g/dL (12.0-18.0); pH ABG 7.412 (7.350-7.450)
[2021-05-26 13:24] LABS: Device NASAL CANNULA; Modified Allen's Test Pass; Oxyhemoglobin 87.4 % THb (90.0-100.0); Site Drawn RIGHT RADIAL
--- NOTE | 2021-05-26 13:59 | HOMEO2EVAL ---
Evaluation was performed at [facility] Home Oxygen Evaluation RC: Home Oxygen (O2) Evaluation Start: 05/26/21 13:54 Freq: Status: Active Protocol: RPE Activity Type Activity Date Activity User E-Sign Co-Sign Detail Recorded Client Recorded Date Recorded By Document 05/26/21 13:00 ROGER [email or web address] 05/26/21 13:59 ROGER Document 05/26/21 13:01 ROGER [email or web address] 05/26/21 13:59 ROGER Document 05/26/21 13:02 ROGER [email or web address] 05/26/21 13:59 ROGER Document 05/26/21 13:03 ROGER [email or web address] 05/26/21 13:59 ROGER Document 05/26/21 13:05 ROGER [email or web address] 05/26/21 13:59 ROGER Document 05/26/21 13:06 ROGER [email or web address] 05/26/21 13:59 ROGER Document 05/26/21 13:15 ROGER [email or web address] 05/26/21 13:59 ROGER 05/26/21 05/26/21 05/26/21 13:00 13:01 13:02 Home O2 Evaluation Test Phase Resting Resting Resting Oxygen Delivery Room Air Nasal Cannula Nasal Cannula Oxygen Flow Rate (L/min) 1 2 Pulse Oximetry (90-100 %) 78 L 83 L 86 L Pulse Rate (60-100 beats/min) 101 H Ambulation Distance (feet) Ambulation Distance (meters) Home Oxygen Evaluation Comments Treatment Charges O2 Evaluation - Outpatient 05/26/21 05/26/21 05/26/21 13:03 13:05 13:06 Home O2 Evaluation Test Phase Resting Exercise Exercise Oxygen Delivery Nasal Cannula Nasal Cannula Nasal Cannula Oxygen Flow Rate (L/min) 3 3 4 Pulse Oximetry (90-100 %) 93 87 L 89 L Pulse Rate (60-100 beats/min) 103 H 115 H 116 H Ambulation Distance (feet) 650 Ambulation Distance (meters) 198.11 Home Oxygen Evaluation Comments PT WORE HOME O2 , POC UNIT, AT PULSE DOSE SETTING AT 4 WITH ACTIVITY, 3 PULSE DOSE AT REST Treatment Charges 05/26/21 13:15 Home O2 Evaluation Test Phase Resting Oxygen Delivery Nasal Cannula Oxygen Flow Rate (L/min) 3 Pulse Oximetry (90-100 %) 93 Pulse Rate (60-100 beats/min) 98 Ambulation Distance (feet) Ambulation Distance (meters) Home Oxygen Evaluation Comments Treatment Charges
--- NOTE | 2021-05-26 13:59 | PCRCNOTE ---
HOME O2 EVAL FAXED TO OFFICE STAFF
== END 2021-05-26 12:34 | disposition home or self-care (01) ==
PROVIDERS: PCP Family Medicine; Visit Provider Nurse Practitioner Family
DX: J44.9 Chronic obstructive pulmonary disease, unspecified (principal)
CPT/HCPCS: 36600; 82805; 94618

== ENCOUNTER 2021-06-16 00:51 | Day surgery (SDC) | payer MEDICARE, OTHER, SELFPAY ==
[2021-06-01 15:59] VITALS: BMI 31.2
[2021-06-16] MEDS: LACTATED RINGERS 1,000 ML 150 ML IV CONT (12:49)
[2021-06-16 12:55] VITALS: BP 117/68; PULSE 88; RESP 20; TEMP 36.4; O2SAT 97
--- NOTE | 2021-06-16 13:23 | PM.HPGS ---
History of Present Illness History of Present Illness Consent: Risks, benefits, and alternatives have been discussed and questions answered. Patient agrees to proceed with procedure. Chief complaint: neoplasm screening Narrative: Tina Gutierrez is a 75 year old female with colon polyp 6 years ago. Review of Systems Constitutional: Constitutional: Denies headache(s) and Denies weakness Eyes: Eyes: Denies blurry vision ENT: Reports Normal hearing present, Denies headache(s) and Denies neck pain Cardiovascular: Cardiovascular: Denies chest pain and Denies dyspnea Respiratory: Respiratory: Denies dyspnea Gastrointestinal: Gastrointestinal: Reports no additional gastrointestinal complaints Genitourinary: Genitourinary: Denies dysuria Musculoskeletal: Musculoskeletal: Denies neck pain Integumentary/Breasts: Skin/Breast: Denies dry skin Neurologic: Reports Normal hearing present, Denies headache(s) and Denies weakness Psychiatric: Psychiatric: Denies anxiety Endocrine: Endocrine: Denies change in body appearance Hematologic/Lymphatic: Hematologic/Lymphatic: Denies easy bleeding Allergic/Immunologic: Allergic/Immunologic: Denies urticaria PMFSH Past Medical History Medical History (Updated 06/16/21 @ 13:25 by Sincere Maurice MD) Anxiety Arthritis Breast cancer Colon polyp COPD (chronic obstructive pulmonary disease) Dependence on continuous supplemental oxygen Encounter for medication management GERD (gastroesophageal reflux disease) Irritable bowel disease Lung cancer Neuropathy Other specified counseling Psoriatic arthritis Tobacco abuse Surgical History Surgical History H/O cataract extraction History of appendectomy History of carpal tunnel release History of knee replacement History of liver biopsy History of lung surgery History of tonsillectomy Hx of cholecystectomy S/P lumpectomy of breast Family History Family History Mother Diabetes mellitus Family history of lung cancer Family history of malignant neoplasm of uterus Family history of psoriasis Family history of malignant neoplasm Sibling Diabetes mellitus Father Family history of chronic obstructive pulmonary disease Family history of lung cancer Hypertension Family history of cardiovascular disease Grandparent Family history of malignant neoplasm of uterus Family history of coronary artery disease Social History Social History Smoking packs per day: 1 Smoking cigarettes per day: 20.0 Years smoked: 51 Smoking pack-years: 51.00 Smoking status: Current some day smoker Tobacco type: cigarettes Alcohol intake: never Substance use: never Substance use type: does not use Living arrangements: alone Gender identity (if verbalized by the patient): Female Spiritual care concerns: No Meds Home Medications and Allergies Home Medications Medication Instructions Recorded Confirmed Type aspirin [Aspirin Low Dose] 81 mg PO DAILY 01/03/19 06/16/21 History hdhudcdu-lxqlsqx-uata-lutein tablet 1 mcg PO DAILY tablet 06/04/19 06/16/21 History vit C,M-Zy-ocbdr-lutein-zeaxan 1 tablet PO DAILY 07/29/19 06/16/21 History [PreserVision AREDS-2] pregabalin 150 mg capsule 150 mg PO TID #90 cap 02/23/21 06/16/21 Rx leflunomide 20 mg tablet 20 mg PO DAILY #90 tablet 03/23/21 06/16/21 Rx ixekizumab 80 mg/mL subcutaneous 80 mg SUBCUT ONCE #1 ml 04/13/21 06/16/21 Rx auto-injector hydrochlorothiazide 12.5 mg capsule 12.5 mg PO DAILY #90 cap 04/21/21 06/16/21 Rx albuterol sulfate 2.5 mg INHALATION Q6H PRN #360 ml 05/12/21 06/16/21 Rx budesonide 160 mcg-glycopyr 9 2 inh INHALATION QAM AND QPM #10.7 05/12/21 06/16/21 Rx mcg-formot 4.8 mcg/actuation HFA g inhaler cholecalciferol (vitamin D3) 25 25 mcg PO DAILY 05/12/21 06/16/21 Hist
[2021-06-16 13:38] VITALS: BP 103/53; PULSE 75; RESP 20; O2SAT 96
[2021-06-16 13:48] VITALS: BP 103/55; PULSE 72; RESP 20; O2SAT 93
[2021-06-16 13:58] VITALS: BP 119/62; PULSE 70; RESP 17; O2SAT 93
== END 2021-06-16 14:11 | disposition home or self-care (01) ==
PROVIDERS: PCP Family Medicine; Visit Provider Internal Medicine Gastroenterology
PROC: 0DJD8ZZ Inspection of Lower Intestinal Tract, Via Natural or Artificial Opening Endoscopic (ICD-10-PCS; CPT 45378; principal; 2021-06-16 14:00)
DX: Z12.11 Encounter for screening for malignant neoplasm of colon (principal); D12.0 Benign neoplasm of cecum; C34.90 Malignant neoplasm of unspecified part of unspecified bronchus or lung; J44.9 Chronic obstructive pulmonary disease, unspecified; K57.30 Diverticulosis of large intestine without perforation or abscess without bleeding; K21.9 Gastro-esophageal reflux disease without esophagitis; L40.50 Arthropathic psoriasis, unspecified; K64.8 Other hemorrhoids; M19.90 Unspecified osteoarthritis, unspecified site; G62.9 Polyneuropathy, unspecified; F41.9 Anxiety disorder, unspecified; F17.210 Nicotine dependence, cigarettes, uncomplicated; Z99.81 Dependence on supplemental oxygen; Z85.3 Personal history of malignant neoplasm of breast
CPT/HCPCS: 45380; 88305; J2704; J7120

== ENCOUNTER 2021-06-28 08:01 | Outpatient (CLI) | payer MEDICARE, OTHER, SELFPAY ==
--- NOTE | ~2021-06-28 | US_ITS ---
EXAMINATION: US art doppler w press LE BI DATE: 06/28/2021 08:57 INDICATION: Peripheral vascular disease. Hypertension and smoking. Numbness and tingling in the lower limbs. TECHNIQUE: Segmental pressures and plethysmographic and Doppler waveforms of the brachial and lower e xtremity arteries were obtained. COMPARISON: None. FINDINGS: Right and left brachial artery pressures of 112 mm Hg and 127 mm Hg, respectively, are concordant (no rmal difference <= 30 mmHg). The right and left high-thigh pressure indices are 1.15 and 1.10, respec tively (normal > 1.2). The right ankle-brachial index (KATINA) is 1.00 (normal >= 0.9-1). The right great toe-brachial index (T BI) is 1.13 (normal >= 0.6-0.8). The right lower extremity segmental pressure gradients are normal (n ormal gradients <= 20-30 mmHg between adjacent levels on the same leg or the same levels on the two l egs). Arterial waveforms are triphasic at the right common femoral and popliteal arteries and biphasi c at the right superficial femoral, posterior tibial and dorsalis pedis arteries with brisk systolic upstrokes throughout. The left KATINA is 0.97. The left TBI is 0.97. The left lower extremity segmental pressure gradients are normal. Arterial waveforms are biphasic with brisk systolic upstrokes throughout the arteries of the left lower limb. IMPRESSION: 1. Normal KATINA's and TBI's bilaterally. No significant arterial occlusive disease. Reviewed, dictated and finalized at location A. IMPRESSION: 1. Normal KATINA's and TBI's bilaterally. No significant arterial occlusive diseas e.
== END 2021-06-28 08:02 | disposition home or self-care (01) ==
PROVIDERS: PCP Family Medicine; Visit Provider Physician Assistant
DX: I73.9 Peripheral vascular disease, unspecified (principal)
CPT/HCPCS: 93923

== ENCOUNTER 2022-01-05 09:44 | Outpatient (CLI) | payer MEDICARE, OTHER, SELFPAY ==
[2022-01-05 16:51] LABS: Cholesterol 223 mg/dL (0-200); HDL Direct 39 mg/dL; Triglycerides 235 mg/dL (<150)
[2022-01-05 17:02] LABS: LDL Cholesterol Direct 110 mg/dL
== END 2022-01-05 09:45 | disposition home or self-care (01) ==
LOC: ANHLAB 09:46
PROVIDERS: PCP Family Medicine; Visit Provider Family Medicine
DX: E03.9 Hypothyroidism, unspecified (principal); E78.2 Mixed hyperlipidemia
CPT/HCPCS: 36415; 80061; 84443

== ENCOUNTER 2022-03-18 12:10 | Outpatient (CLI) | payer MEDICARE, OTHER, SELFPAY ==
--- NOTE | ~2022-03-18 | XR_ITS ---
Right ankle Technique: AP, oblique, and lateral views were obtained. Clinical History: Pain Findings: No acute fracture or dislocation is seen. Osseous alignment is anatomic. Ankle mortise and other visualized joint spaces are preserved. Soft tissues are otherwise unremarkable. Impression: Unremarkable right ankle. Reviewed, dictated and finalized at [facility]. GENIZER OPERATOR Impression: Unremarkable right ankle.
== END 2022-03-18 12:11 | disposition home or self-care (01) ==
PROVIDERS: PCP Family Medicine; Visit Provider Family Medicine
DX: M25.571 Pain in right ankle and joints of right foot (principal)
CPT/HCPCS: 73610

== ENCOUNTER 2022-03-21 15:03 | Outpatient (CLI) | payer MEDICARE, OTHER, SELFPAY ==
--- NOTE | ~2022-03-21 | MM_ITS ---
EXAMINATION: MM screening maggy BI w que HISTORY: Screening mammogram TECHNIQUE: Craniocaudal and mediolateral oblique 3-D tomosynthesis images were obtained and synthetic 2-D images were generated. CAD analysis was submitted and interpreted. COMPARISON: 02/26/2021 diagnostic bilateral mammogram 08/13/2020 bilateral diagnostic mammography and bilateral complete breast ultrasound 09/19/2019, 09/17/2018 bilateral screening mammogram examinations BREAST PARENCHYMAL COMPOSITION: There are scattered areas of fibroglandular density. FINDINGS: Status post left partial mastectomy for breast cancer in 2005 according to clinical history . Scattered occasional bilateral benign calcifications. Chronic mild asymmetric left breast skin thic kening. There is no evidence of suspicious mass, calcification, or architectural distortion to sugges t malignancy in either breast. There has been no suspicious interval change. IMPRESSION: 1. No mammographic evidence of malignancy. 2. Recommend routine screening mammography in one year. BI-RADS Category 2: Benign finding(s). Reviewed, dictated and finalized at location A. POLLUTION ANALYST
== END 2022-03-21 15:04 | disposition home or self-care (01) ==
LOC: ANHIMG 15:08
PROVIDERS: PCP Family Medicine; Visit Provider Internal Medicine Hematology & Oncology
DX: Z12.31 Encounter for screening mammogram for malignant neoplasm of breast (principal)
CPT/HCPCS: 77063; 77067

== ENCOUNTER 2022-04-11 10:46 | Outpatient (CLI) | payer MEDICARE, OTHER, SELFPAY ==
--- NOTE | ~2022-04-11 | CT_ITS ---
Clinical Indication: Lung cancer CT Scan of the Chest with Contrast: Technique: Contiguous sections were acquired throughout the chest after intravenous administration of 75 cc of Omnipaque 350. Dose reduction technique was used on this scan by utilizing automated exposu re control and iterative reconstruction technique. The dose-length product (DLP) was 199.39 mGy-cm. COMPARISON: 04/23/2021 and 11/16/2020 Findings: There is no evidence of any significant mediastinal, hilar or axillary lymphadenopathy. There is no f illing defect in the pulmonary arterial tree to suggest pulmonary embolus. There is no evidence of ao rtic dissection or aneurysm. There is no evidence of pleural or pericardial effusion. There is increasing right upper lobe pulmonary nodule adjacent to an area of scarring versus fissure, with nodularity now measuring up to 1.3 x 0.6 x 0.8 cm in extent (axial image 27, sagittal image 44) . There is mild amorphous groundglass opacity at the right lung base (axial image 75). No suspicious pulmonary nodule seen in the left lung. Images through the upper abdomen reveal 2 cm hypodense splenic mass (axial image 94).. Impression: Increasing 1.3 x 0.6 x 0.8 cm nodule in the right upper lobe region adjacent to scarring or fissure. Increasing pulmonary nodule is suspicious for recurrent neoplasm until proven otherwise. 2 cm hypodense splenic mass. Although indeterminate, this mass is definitely significantly increased in size since 11/16/2020, less well evaluated on most recent exam from 04/23/2021 as that exam was a no ncontrast exam. Given history, splenic metastasis must be considered. Mild amorphous ground glass opacity at the right lung base. Focal pneumonitis is a consideration. Reviewed, dictated and finalized at [facility]. T COMMISSIONER Impression: Increasing 1.3 x 0.6 x 0.8 cm nodule in the right upper lobe region adjacent to scarring or fissure. Increasing pulmonary nodule is suspicious for recurrent n eoplasm until proven otherwise. 2 cm hypodense splenic mass. Although indeterminate, this mass is definitely si gnificantly increased in size since 11/16/2020, less well evaluated on most rece nt exam from 04/23/2021 as that exam was a noncontrast exam. Given history, sple sal metastasis must be considered. Mild amorphous ground glass opacity at the right lung base. Focal pneumonitis i s a consideration.
== END 2022-04-11 10:47 | disposition home or self-care (01) ==
PROVIDERS: PCP Family Medicine; Visit Provider Internal Medicine Hematology & Oncology
DX: C34.92 Malignant neoplasm of unspecified part of left bronchus or lung (principal); D73.89 Other diseases of spleen
CPT/HCPCS: 71260; Q9967

== ENCOUNTER 2022-04-28 08:18 | Outpatient (CLI) | payer MEDICARE, OTHER, SELFPAY ==
--- NOTE | ~2022-04-28 | PE_ITS ---
EXAMINATION: PET skull to mid thigh DATE: 04/28/2022 10:09 INDICATION: Left lung non-small cell cancer TECHNIQUE: Blood glucose level was 113 mg/dL. 9.131 mCi of 18-fluorodeoxyglucose (18-FDG) was adminis tered i.v. Low dose computed tomography (CT) images were acquired from the base of the brain to the p roximal thighs for attenuation correction and anatomic localization. Positron emission tomography (PE T) images were acquired in the same distribution beginning 60 minutes after injection. Images includi ng fused PET/CT images were reconstructed in axial, coronal, and sagittal planes. Automated exposure control technique was employed. The dose-length product was 562.40mGy-cm. COMPARISON: Chest CT dated 04/11/2022, 04/23/2021 and 07/27/2020 and PET/CT dated 08/02/2019 FINDINGS: Head/neck: There is symmetric increased activity in the oral cavity, palatine tonsils, parotid glands, submandi bular glands, laryngeal muscles and ocular muscles without CT correlate, likely physiologic. No patho logically enlarged cervical lymphadenopathy or suspicious foci of increased FDG uptake in the visuali zed head or neck. Chest: Mild emphysema. There is increased FDG uptake with maximal SUV of 9.1 associated with a 1.3 x 0.8 cm nodule along side a suture line at the right upper lobe. This nodule has increased in size from [address] dated 04/23/2021. There is increased FDG uptake with maximal SUV of 4.0 associated with a poorly defined approximately 4.5 cm region of groundglass opacity at the basilar right lower lobe. No pleur al effusion. There is peripheral scarring at the anterolateral left lower lung likely related to radi ation fibrosis of a prior biopsy-proven non-small cell lung cancer. 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 Diffuse mild FDG uptake with maximal SUV of 2.8 associated with thickened soft tissue along the anterolateral left chest wall overlying the site of the rib fracture s which has remained unchanged since CT dated 07/27/2020 also likely secondary to prior radiation iesha tment. Chronic asymmetric left periareolar skin thickening. Surgical clip along a 1.4 x 0.9 cm left a xillary lymph node which demonstrates mild increased FDG uptake with maximal SUV of 4.0. This lymph n ode previously measured 8 x [address] dated 04/23/2021. Mild cardiomegaly. No pericardial effusion. T horacic aorta is normal in caliber. Small sliding-type hiatal hernia. No other pathologically enlarge d or FDG avid thoracic lymphadenopathy. Abdomen/pelvis/proximal thighs: Physiologic renal accumulation and excretion of FDG activity in the kidneys, bladder and along portio ns of ureters. 3.9 cm left renal cyst. Normal degree and heterogenous pattern of increased uptake thr oughout the liver without radiologic correlate or dominant FDG avid lesion. The gallbladder, pancreas and bilateral adrenal glands are normal. Photopenic defect on FDG PET at the site of a 1.5 cm hypode nse splenic lesion most likely a cyst or hemangioma. There is moderate colonic diverticulosis with a sigmoid predominance. There is no adjacent inflammatory change to suggest diverticulitis. Mild uptake scattered throughout the bowels without radiologic correlate, also likely physiologic. No other abno rmal foci of increased FDG uptake or pathologically enlarged lymphadenopathy in the abdomen, pelvis o r proximal thighs. Musculoskeletal: Severe cervical, thoracic and lumbar spondylosis. Mild likely degenerative FDG uptake associated with severe facet osteoarthritis at the right side of the lower cervical spine. Diffuse mild likely physi ologic synovial uptake at the bilateral shoulders and hips increased uptake overlying the bilateral g reater trochanters consistent with trochanteric bursitis, left greater than right. No suspicious lyti c, blastic or intensely FDG avid bone lesions to suggest metastatic disease. IMPRESSION: 1. Incr
[2022-04-28 08:38] LABS: Glucose Point of Care 113 mg/dl (65-105)
== END 2022-04-28 08:19 | disposition home or self-care (01) ==
PROVIDERS: PCP Family Medicine; Visit Provider Internal Medicine Hematology & Oncology
DX: C50.812 Malignant neoplasm of overlapping sites of left female breast (principal); R59.0 Localized enlarged lymph nodes; R91.1 Solitary pulmonary nodule
CPT/HCPCS: 78815; A9552

== ENCOUNTER 2022-05-18 09:48 | Outpatient (CLI) | payer MEDICARE, OTHER, SELFPAY ==
--- NOTE | ~2022-05-18 | US_ITS ---
EXAMINATION: US biopsy lymph node DATE: 05/18/2022 11:08 INDICATION: Left axillary lymphadenopathy. TECHNIQUE: The procedure including the risks, benefits, and alternatives was discussed with the patie nt. Risks discussed included bleeding and infection. The patient understood the risks and agreed to p roceed. The skin overlying the left axilla was prepped and draped in usual sterile fashion. Anesthet ic was administered with 1% lidocaine subcutaneously. An 18 gauge core biopsy needle was then used t o obtain 3 core biopsy specimens under continuous sonographic guidance. The entry site was cleaned an d dressed. There were no immediate complications. FINDINGS: Ultrasound images demonstrate the needle in an 8 mm lymph node in left axilla. IMPRESSION: 1. Ultrasound-guided core needle biopsy is a normal-sized left axillary lymph node that demonstrated increased activity on recent PET. Reviewed, dictated and finalized at location A. IMPRESSION: 1. Ultrasound-guided core needle biopsy is a normal-sized left axillary lymph n ode that demonstrated increased activity on recent PET.
== END 2022-05-18 09:49 | disposition home or self-care (01) ==
PROVIDERS: PCP Family Medicine; Visit Provider Internal Medicine Hematology & Oncology
DX: C50.812 Malignant neoplasm of overlapping sites of left female breast (principal); Z17.0 Estrogen receptor positive status [ER+]; C77.3 Secondary and unspecified malignant neoplasm of axilla and upper limb lymph nodes
CPT/HCPCS: 38505; 76942; 88305; 88342; 88365

== ENCOUNTER 2022-06-15 17:52 | Inpatient (IN) | payer MEDICARE, OTHER, SELFPAY ==
--- NOTE | ~2022-06-15 | CT_ITS ---
EXAMINATION: CTA chest PE protocol DATE: 06/22/2022 08:35 CDT INDICATION: Hypoxia. Dyspnea with exertion. Small cell lung cancer. TECHNIQUE: Computed tomographic angiography (CTA) of the chest was performed with 100 mL Omnipaque-35 0 intravenous contrast. The dose-length product was 360.67 mGy-cm. Maximum intensity projection 3D-re constructions of the aorta and other arteries were constructed by the technologist on a separate work station. Automated exposure control and iterative reconstruction technique were employed. COMPARISON: Comparison to multiple prior studies sequentially, with oldest reviewed study dated 05/2020. FINDINGS: Cardiomegaly. No significant pleural or pericardial effusion. No thoracic lymphadenopathy. Thyroid gland is unremarkable. There is mild atherosclerosis study is technically adequate without ev idence for pulmonary embolism. There are likely surgical changes in the right upper lobe. There is a right upper lobe nodule measuring 8-9 mm which has increased in size since 04/23/2021, suspicious for tumor recurrence. There is dependent atelectasis. No endobronchial lesions. There are healing left th ird and fourth rib fractures. Severe thoracic spondylosis. There is left pleural thickening/scarring adjacent to the rib fractures. There is dependent atelectasis of the left lower lobe. IMPRESSION: 1. No evidence for pulmonary embolism. 2: There are changes of partial right pneumonectomy with adjacent 8-9 mm nodule which has increased i n size compared with prior studies, suspicious for tumor recurrence. Consider correlation with pet/CT scan. 3: Healing left third and fourth rib fractures with adjacent pleural thickening/scarring. Reviewed, dictated and finalized at location B. IMPRESSION: 1. No evidence for pulmonary embolism. 2: There are changes of partial right pneumonectomy with adjacent 8-9 mm nodule which has increased in size compared with prior studies, suspicious for tumor recurrence. Consider correlation with pet/CT scan. 3: Healing left third and fourth rib fractures with adjacent pleural thickenin g/scarring.
--- NOTE | ~2022-06-15 | XR_ITS ---
EXAMINATION: XR chest 2V DATE: 06/18/2022 18:23 INDICATION: Dyspnea. TECHNIQUE: Frontal and lateral views of the chest were obtained. COMPARISON: Chest 2 views 07/12/2022, chest CT 06/15/2022 FINDINGS: There are mild airspace opacities in the lower lung zones. There is a small left pleural ef fusion. No pneumothorax. The heart size is normal. IMPRESSION: 1. Mild airspace opacities in the lower lung zones, consistent with atelectasis versus pneumonia. 2. Small left pleural effusion. Reviewed, dictated and finalized at location A.
--- NOTE | ~2022-06-15 | CT_ITS ---
EXAMINATION: CTA chest PE protocol DATE: 06/15/2022 20:56 INDICATION: R sided chest pain w/ kurtis on exertion, lung ca TECHNIQUE: Computed tomography angiography (CTA) of the chest was performed with 100 mL Omnipaque-350 intravenous contrast timed to evaluate the pulmonary arteries. Coronal maximum intensity projection 3D-reconstructions were created by the technologist. The dose-length product (DLP) was 425.53 mGy-cm. Automated exposure control and iterative reconstruction technique were employed. COMPARISON: X-ray chest, same date. FINDINGS: Lung parenchyma and airways: Right apical scar. Right upper lobe nodule, grossly similar in size to t he prior study. Lingular and bibasilar scar/atelectasis. Persistent central groundglass opacity in th e right lower lobe patent airways. Subtle scattered peripheral tree-in-bud opacities. Pleura: Unremarkable. Thoracic inlet, axillae and chest wall: Left axillary lymphadenopathy, with biopsy marker. Thoracic aorta: Mild ectasia and arch calcification. Mediastinum: Dilated central pulmonary arteries as can be seen with pulmonary arterial hypertension. Heart and pericardium: Mild cardiomegaly. Coronary artery calcifications: Mild. Upper abdomen: Stable hypoenhancing splenic mass. Bones: No acute osseous finding. Pulmonary arteries: Study quality: Adequate. No pulmonary emboli detected. IMPRESSION: No CT evidence of acute pulmonary embolus. Worsening pneumonitis in the right lower lobe. Reviewed, dictated and finalized at location K. IMPRESSION: No CT evidence of acute pulmonary embolus. Worsening pneumonitis in the right l ower lobe.
--- NOTE | ~2022-06-15 | XR_ITS ---
EXAMINATION: XR chest 2V Exam Date/Time: 06/15/2022 18:38 CDT HISTORY: cp Comparison: 06/25/2019; CT chest 04/11/2022. RESULT: Lines, tubes, and devices: None. Lungs and pleura: Right upper lobe pulmonary nodule, similar in size given interval difference in [place]. Diffuse reticulonodular opacities. Lingular scar/atelectasis. Cardiomediastinal silhouette: Stable. Other: No acute osseous or upper abdominal finding. IMPRESSION: No acute cardiopulmonary process. Chronic pulmonary opacities may represent bronchiolitis, as can be seen with atypical infection, asthma, aspiration, and small airways disease. Reviewed, dictated and finalized at location K. IMPRESSION: No acute cardiopulmonary process. Chronic pulmonary opacities may represent bro nchiolitis, as can be seen with atypical infection, asthma, aspiration, and sma ll airways disease.
[2022-06-15 17:59] VITALS: BP 129/78; PULSE 90; RESP 18; TEMP 36.7; O2SAT 95
--- NOTE | 2022-06-15 18:25 | ECG_ITS ---
Measurements Intervals [place] Rate: 87 P: 40 PA: 185 QRS: -14 QRSD: 90 T: 38 QT: 378 QTc: 455 Interpretive Statements SINUS RHYTHM VENTRICULAR PREMATURE COMPLEX BORDERLINE R WAVE PROGRESSION, ANTERIOR LEADS BASELINE ARTIFACT- I, II, AVR, AVL BORDERLINE ECG NO PREVIOUS ECG AVAILABLE FOR COMPARISON Electronically Signed On 06-16-2022 14:24:56 CDT by Yong Cabrera D.O.
[2022-06-15 19:21] VITALS: BP 145/80; PULSE 83; RESP 20; O2SAT 98
[2022-06-15 19:34] LABS: Basophils Absolute Auto 0.1 K/mm3 (0.0-0.1); Basophils Percent Auto 0.9 % (0.2-1.2); Eosinophils Absolute Auto 0.4 K/mm3 (0-0.3); Eosinophils Percent Auto 4.3 % (0-4.4); Hematocrit 34.7 % (37.0-47.0); Hemoglobin 10.7 g/dL (12.0-15.0); Immature Granulocyte Absolute 0.05 K/mm3 (0.00-0.031); Immature Granulocyte Percent A 0.5 % (0-0.5); Lymphocytes Absolute Auto 1.34 K/mm3 (0.9-3.2); Lymphocytes Percent Auto 13.2 % (18.3-44.2); Mean Corpuscular HGB Conc 30.8 g/dl (32-36); Mean Corpuscular Hemoglobin 29.2 pg (26-34); Mean Corpuscular Volume 94.6 fl (80-100); Mean Platelet Volume 10.6 fl (7.4-10.4); Monocytes Absolute Auto 0.6 K/mm3 (0.1-0.6); Monocytes Percent Auto 6.3 % (2.6-8.5); Neutrophils Absolute Auto 7.6 K/mm3 (1.3-6.7); Neutrophils Percent Auto 74.8 % (45.5-73.1); Platelet Count Result 228 k/mm3 (150-375); Red Blood Count 3.67 M/mm3 (4.2-5.4); Red Cell Distribution Width 14.5 % (11.5-14.5); White Blood Count 10.2 K/mm3 (4.5-10.0)
[2022-06-15] MEDS: ASPIRIN 81 MG CHEWABLE TABLET 324 MG PO (19:36)
[2022-06-15] MEDS: MAGNESIUM SULF 2 GM/WATER 50ML 2 GM/50 ML BAG IVPB (19:37)
[2022-06-15 19:38] LABS: Alanine Aminotransferase 25 U/L (6-35); Albumin Level 4.1 g/dL (3.5-5.1); Alkaline Phosphatase 123 U/L (38-126); Anion Gap 2 mmol/L (8-16); Aspartate Amino Transferase 28 U/L (14-36); Bilirubin,Total 0.4 mg/dL (0.2-1.3); Blood Urea Nitrogen 19 mg/dL (7-17); Calcium 9.8 mg/dL (8.4-10.2); Carbon Dioxide 36 mmol/L (22-30); Chloride 100 mmol/L (98-107); Estimated Glomerular Filt Rate > 60; Glucose 110 mg/dL (65-110); Lipase 150 U/L (23-300); Potassium 3.4 mmol/L (3.4-5.0); Sodium 138 mmol/L (137-145)
[2022-06-15] MEDS: ALBUTEROL SULFATE NEB 2.5 MG/3 ML INH 10 MG INHALATION (19:43)
[2022-06-15] MEDS: IPRATROPIUM BR 0.02% INH SOLN 0.5 MG/2.5 ML VIAL 1 MG INHALATION (19:44)
[2022-06-15 19:45] VITALS: PULSE 82; RESP 18
[2022-06-15 19:50] LABS: Troponin I < 0.012 ng/mL (0.000-0.034)
[2022-06-15 19:54] LABS: INR 0.9; Prothrombin Time 12.1 Seconds (11.1-14.7)
[2022-06-15 19:55] LABS: Partial Thromboplastin Time 25.5 SECONDS (22.3-36.8)
[2022-06-15 20:12] LABS: NT Pro B Type Natriuretic Pept 278 pg/mL (19.9-100)
[2022-06-15 20:16] VITALS: O2SAT 95
[2022-06-15 20:41] LABS: Influenza A QL RT-PCR Negative (Negative); Influenza B QL RT-PCR Negative (Negative); RSV RNA, RT-PCR Negative (Negative); SARS-CoV-2 RNA PCR Negative (Negative)
[2022-06-15 20:50] VITALS: PULSE 88; RESP 18
[2022-06-15 22:35] LABS: Appearance Urine Clear (Clear); Bilirubin Urine Negative (Negative); Blood Urine Negative (Negative); Color Urine Yellow (Yellow); Glucose Urine UA 1+ mg/dL (Negative); Ketones Urine Negative (Negative); Leukocyte Esterase Ur Negative LEU/UL (Negative); Nitrate Urine Negative (Negative); Protein Urine Negative (Negative); Urobilinogen Urine 0.2 mg/dL (<2.0); pH Urine 5.5 (5.0-9.0)
[2022-06-15 22:36] LABS: Specific Grav Ur 1.057 (1.001-1.035)
[2022-06-15 22:37] LABS: Add Urine Microscopic? NO
--- NOTE | 2022-06-15 22:45 | ED.GENADULT ---
HPI - General Adult General Chief complaint: Chest Pain Stated complaint: increased SOB and intermittent CP x 1 week Time Seen by Provider: 06/15/22 19:08 History of Present Illness HPI narrative: This is a 76-year-old female with a history of Lung cancer presenting ED with chief complaint of chest pain and shortness of breath. Pain over the last week the patient has had increased dyspnea on exertion. At 1:00 p.m. today while at [employer] while she was walking around she developed a pressure in the center of her chest that radiates to her right arm. the pain comes and goes, she has never experienced pain like this before in the past and improves with rest. She does related to exertion and has had a cough over the last week. Patient is only able to walk 15-30 steps without becoming short of breath. She denies nausea, vomiting, fever chills or lower extremity edema. She has COPD and she is still a smoker. Patient has had increased oxygen requirements from her 3 L at baseline. Related Data Home Medications Medication Instructions Recorded Confirmed aspirin 81 mg tablet,delayed 81 mg PO DAILY 01/03/19 06/09/22 release (Ian Low Dose Aspirin) [id number]-xdsapwj-ftdk-lutein tablet 1 mcg PO DAILY 06/04/19 06/09/22 vit C 250 mg-vit E 90 mg-zinc 40 1 tablet PO DAILY 07/29/19 06/09/22 mg-copper 1 [id number]-tkrekm capsule (PreserVision AREDS-2) cholecalciferol (vitamin D3) 25 25 mcg PO DAILY 05/12/21 06/09/22 mcg (1,000 unit) capsule ferrous sulfate 325 mg (65 mg 325 mg PO BID 05/12/21 06/09/22 iron) tablet (FeroSul) anastrozole 1 mg tablet 1 mg PO DAILY 06/09/22 06/09/22 Allergies Allergy/AdvReac Type Severity Reaction Status Date / Time bupropion [From Wellbutrin] Allergy Intermediate Rash Verified 06/15/22 17:53 adhesive tape Allergy Unknown BLISTERS Verified 06/15/22 17:53 Bleach (Sodium Hypochlorite) Allergy Unknown Itching Verified 06/15/22 17:53 benzocaine AdvReac Unknown Unknown Verified 06/15/22 17:53 [From Tigan (with benzocaine)] trimethobenzamide AdvReac Unknown N/V Verified 06/15/22 17:53 [facility] Past Medical History Medical History Anxiety Arthritis Breast cancer Colon polyp COPD (chronic obstructive pulmonary disease) Dependence on continuous supplemental oxygen Encounter for medication management GERD (gastroesophageal reflux disease) Irritable bowel disease Lung cancer Neuropathy Other specified counseling Psoriatic arthritis PVD (peripheral vascular disease) Tobacco abuse Surgical History Surgical History H/O cataract extraction History of appendectomy History of carpal tunnel release History of knee replacement History of liver biopsy History of lung surgery History of tonsillectomy Hx of cholecystectomy S/P lumpectomy of breast Family History Family History Mother Diabetes mellitus Family history of lung cancer Family history of malignant neoplasm of uterus Family history of psoriasis Family history of malignant neoplasm Sibling Diabetes mellitus Father Family history of chronic obstructive pulmonary disease Family history of lung cancer Hypertension Family history of cardiovascular disease Grandparent Family history of malignant neoplasm of uterus Family history of coronary artery disease Social History Social History Smoking packs per day: 0.5 Smoking cigarettes per day: 10.0 Years smoked: 51 Smoking pack-years: 25.50 Smoking status: Current some day smoker Tobacco type: cigarettes Second hand tobacco smoke exposure: No Alcohol intake: never Substance use: never Substance use type: does not use Lack of Transportation: No Lack of Food: Never True Current Housing: I Have Housing Concerned About Future Housing: No
--- NOTE | 2022-06-15 22:51 | PM.IMHP ---
H&P: HPI History of Present Illness Date/Time: 06/15/22 22:51 Chief Complaint: Chest pain Narrative: 76-year-old female with past medical history significant for breast CA, COPD, on supplemental oxygen by nasal cannula, GERD, lung CA, neuropathy, peripheral vascular disease, tobacco dependence, psoriatic arthritis. Patient smokes half a pack of cigarettes daily she is on chronic supplemental oxygen 3 L by nasal cannula at rest and 4 L with activity. Patient presents to the emergency room due to shortness of breath, wheezing, cough productive of white phlegm a scanty amount. Patient had episode of desaturation while in the emergency room when using the bathroom. EXAMINATION: CTA chest PE protocol DATE: 06/15/2022 20:56 INDICATION: R sided chest pain w/ kurtis on exertion, lung ca TECHNIQUE: Computed tomography angiography (CTA) of the chest was performed with 100 mL Omnipaque-350 intravenous contrast timed to evaluate the pulmonary arteries. Coronal maximum intensity projection 3D-reconstructions were created by the technologist. The dose-length product (DLP) was 425.53 mGy-cm. Automated exposure control and iterative reconstruction technique were employed. COMPARISON: X-ray chest, same date. ? FINDINGS:? Lung parenchyma and airways: Right apical scar. Right upper lobe nodule, grossly similar in size to the prior study. Lingular and bibasilar scar/atelectasis. Persistent central groundglass opacity in the right lower lobe patent airways. Subtle scattered peripheral tree-in-bud opacities. Pleura: Unremarkable. Thoracic inlet, axillae and chest wall: Left axillary lymphadenopathy, with biopsy marker. Thoracic aorta: Mild ectasia and arch calcification. Mediastinum: Dilated central pulmonary arteries as can be seen with pulmonary arterial hypertension. Heart and pericardium: Mild cardiomegaly. Coronary artery calcifications: Mild. Upper abdomen: Stable hypoenhancing splenic mass. Bones: No acute osseous finding. Pulmonary arteries: Study quality: Adequate. No pulmonary emboli detected. IMPRESSION: No CT evidence of acute pulmonary embolus. Worsening pneumonitis in the right lower lobe. EXAMINATION:? XR chest 2V Exam Date/Time:? 06/15/2022 18:38 CDT HISTORY: cp ? Comparison:? 06/25/2019; CT chest 04/11/2022. RESULT: Lines, tubes, and devices:? None. Lungs and pleura:? Right upper lobe pulmonary nodule, similar in size given interval difference in technique. Diffuse reticulonodular opacities. Lingular scar/atelectasis. Cardiomediastinal silhouette:? Stable. Other:? No acute osseous or upper abdominal finding. ? IMPRESSION: No acute cardiopulmonary process. Chronic pulmonary opacities may represent bronchiolitis, as can be seen with atypical infection, asthma, aspiration, and small airways disease. Review of Systems Review of Systems: Shortness of breath, wheezing, chest pain Constitutional: Constitutional: Denies chills, Denies fever(s), Denies malaise and Denies night sweats [facility] Past Medical History Medical History (Updated 06/17/22 @ 16:42 by Fadia Escobedo, PANEL BUILDER) Anxiety Arthritis Breast cancer Colon polyp COPD (chronic obstructive pulmonary disease) Dependence on continuous supplemental oxygen Encounter for medication management GERD (gastroesophageal reflux disease) Irritable bowel disease Lung cancer Neuropathy Other specified counseling Psoriatic arthritis PVD (peripheral vascular disease) Tobacco abuse Surgical History Surgical History H/O cataract extraction History of appendectomy History of carpal tunnel release History of knee replacement History of liver biopsy History of lung surgery History of tonsillectomy Hx of cholecystectomy S/P lumpectomy of breast Family History Family History Mother Diabetes mellitus Family history of lung cancer Family hi
[2022-06-15] MEDS: CEFEPIME 2 GM/NS 50 ML 2 GM/50 ML BAG IVPB (23:55)
[2022-06-16] VITALS (20 sets, daily range): BP systolic 113–152; BP diastolic 53–83; PULSE 84–116; RESP 18–22; TEMP 35.8–36.3; O2SAT 89–96
[2022-06-16 00:06] LABS: Troponin I < 0.012 ng/mL (0.000-0.034)
--- NOTE | 2022-06-16 00:16 | ADMGEN ---
This patient, May, was admitted to [facility] Surg Room 301-01. Patient/family oriented to hospital policies and general routines including ID bracelet, bed and alarms, visiting hours, pain management, procedures, bathroom and other care routines, personal items, smoking policy, room service/diet, and visiting hours. Information on how to activate the Rapid Response Team has been discussed. Patient/Family are encouraged to report perceived risks to care and to ask questions if they do not understand what they are told or what they should do.
[2022-06-16 01:31] LABS: Troponin I < 0.012 ng/mL (0.000-0.034)
[2022-06-16] MEDS: methylPREDNISolone SOD SUCC 125 MG VIAL 60 MG IV PUSH (05:53)
[2022-06-16 07:13] LABS: Estimated CRCL calculation 44 ml/min; Estimated Glomerular Filt Rate > 60
[2022-06-16] MEDS: IPRATROPIUM BR 0.02% INH SOLN 0.5 MG/2.5 ML VIAL INHALATION ×4 (07:58→19:46)
[2022-06-16] MEDS: FLUTICASONE/UMECLIDIN/VILANTER 100-62.5-25 MCG ELLIPTA 1 PUFF INHALATION (07:58)
[2022-06-16] MEDS: ALBUTEROL SULFATE NEB 2.5 MG/3 ML INH INHALATION ×4 (08:03→19:46)
[2022-06-16] MEDS: FOLIC ACID 1 MG TABLET PO (08:15)
[2022-06-16] MEDS: PREGABALIN (*CRX) 75 MG CAPSULE 150 MG PO (08:15)
[2022-06-16] MEDS: CHOLECALCIFEROL 1,000 UNITS TABLET 1000 UNITS PO (08:15)
[2022-06-16] MEDS: LEFLUNOMIDE 20 MG TABLET PO (08:15)
[2022-06-16] MEDS: hydroCHLOROthiazide 12.5 MG CAPSULE PO (08:15)
[2022-06-16] MEDS: PARoxetine 20 MG TABLET 40 MG PO (08:16)
[2022-06-16] MEDS: ASPIRIN 81 MG ENTERIC TABLET PO (08:16)
[2022-06-16] MEDS: OPTI-GEN TAB 1 TABLET PO (08:16)
[2022-06-16] MEDS: MULTIVITAMINS /C LUTEIN (CENTRUM SILVER) TABLET *BKC 1 TAB PO (08:16)
[2022-06-16] MEDS: ANASTROZOLE (*CHEMO) 1 MG TABLET PO (08:16)
[2022-06-16] MEDS: FERROUS SULFATE 324 MG TABLET PO ×2 (08:16→18:17)
--- NOTE | 2022-06-16 09:35 | PM.IMPN ---
Progress Note: A&P Assessment and Plan (1) Community acquired pneumonia: Qualifiers: Laterality: right Lung location: lower lobe of lung Qualified Code(s): J18.9 - Pneumonia, unspecified organism Code(s): J18.9 - Pneumonia, unspecified organism Status: Acute Assessment and Plan: Patient presented with increasing shortness of breath, hypoxia with increased supplemental oxygen needs, patient is immunocompromised from oral chemotherapy and leflunomide therapy. Chest x-ray and CTA chest suggest right lower lobe pneumonia. WBC 10.2 on admission. No fevers documented she denies fevers at home. Started on cefepime, vancomycin and Zithromax IV, 1st dose given 06/15/2022 urine legionella, mycoplasma and pneumococcal pending. Sputum culture ordered MRSA nares pending (2) Respiratory failure: Qualifiers: Chronicity: acute on chronic Respiratory failure complication: unspecified whether with hypoxia or hypercapnia Qualified Code(s): J96.20 - Acute and chronic respiratory failure, unspecified whether with hypoxia or hypercapnia Code(s): J96.90 - Respiratory failure, unspecified, unspecified whether with hypoxia or hypercapnia Status: Acute Assessment and Plan: Acute on chronic respiratory failure secondary to pneumonia, COPD exacerbation and underlying lung cancer. Patient is on chronic oxygen 3 L daily and is now requiring up to 4 L nasal cannula. No ABG drawn on admission however SPO2 noted to drop into the 70s with activity in the ED. T CO2 elevated 36 and patient has a history of hypercapnia on previous ABGs. Continue IV antibiotics for pneumonia, IV steroids and scheduled breathing treatments for COPD exacerbation Titrate supplemental oxygen to keep SpO2 greater than 90% and continue home dose of 3 L of oxygen at nighttime. (3) COPD (chronic obstructive pulmonary disease): Qualifiers: COPD type: unspecified COPD Qualified Code(s): J44.9 - Chronic obstructive pulmonary disease, unspecified Code(s): J44.9 - Chronic obstructive pulmonary disease, unspecified Status: Acute Assessment and Plan: Acute exacerbation of COPD. No wheezing noted on exam and patient requiring increase supplemental oxygen. Continue IV Solu-Medrol 40 mg q.6 hours continue scheduled nebulizers q.4 hours And Mucinex b.i.d. (4) Lung cancer: Qualifiers: Laterality: left Lung location: lower lobe of lung Qualified Code(s): C34.32 - Malignant neoplasm of lower lobe, left bronchus or lung Code(s): C34.90 - Malignant neoplasm of unspecified part of unspecified bronchus or lung Status: Chronic Assessment and Plan: Followed by Dr. Michaud oncology. (5) PVD (peripheral vascular disease): Code(s): I73.9 - Peripheral vascular disease, unspecified Status: Chronic Assessment and Plan: No lower extremity edema, ulcerations or pain noted. Continue aspirin. (6) Breast cancer: Qualifiers: Breast location: unspecified site of breast Patient sex: female Laterality: left Estrogen receptor status: positive Qualified Code(s): C50.912 - Malignant neoplasm of unspecified site of left female breast; Z17.0 - Estrogen receptor positive status [ER+] Code(s): C50.919 - Malignant neoplasm of unspecified site of unspecified female breast Status: Chronic Assessment and Plan: Patient is followed by Dr. Michaud. Continue anastrozole. (7) Lower extremity neuropathy: Qualifiers: Laterality: bilateral Qualified Code(s): G57.93 - Unspecified mononeuropathy of bilateral lower limbs Code(s): G57.90 - Unspecified mononeuropathy of unspecified lower limb Status: Chronic Assessment and Plan: No acute changes. Continue pregabalin. (8) Psoriatic arthritis: Code(s): L40.50 - Arthropathic psoriasis, unspecified Status: Chronic Assessment and P
[2022-06-16] MEDS: CEFEPIME 2 GM/NS 50 ML 2 GM/50 ML BAG IVPB ×2 (10:30→20:37)
[2022-06-16] MEDS: methylPREDNISolone SOD SUCC 40 MG VIAL IV PUSH ×2 (13:18→18:17)
[2022-06-16 15:08] LABS: Anion Gap 4 mmol/L (8-16); Blood Urea Nitrogen 20 mg/dL (7-17); Calcium 9.1 mg/dL (8.4-10.2); Carbon Dioxide 35 mmol/L (22-30); Chloride 98 mmol/L (98-107); Estimated CRCL calculation 55 ml/min; Estimated Glomerular Filt Rate > 60; Glucose 146 mg/dL (65-110); Magnesium 2.2 mg/dL (1.6-2.3); Potassium 4.1 mmol/L (3.4-5.0); Sodium 137 mmol/L (137-145)
[2022-06-16] MEDS: QUEtiapine FUMARATE 25 MG TABLET PO (20:36)
[2022-06-16] MEDS: guaiFENesin 12 HR 600 MG TABCR PO (20:36)
[2022-06-17] VITALS (17 sets, daily range): BP systolic 124–133; BP diastolic 62–70; PULSE 81–98; RESP 16–24; TEMP 36–36.4; O2SAT 88–93
[2022-06-17] MEDS: methylPREDNISolone SOD SUCC 40 MG VIAL IV PUSH ×4 (00:05→17:19)
[2022-06-17] MEDS: IPRATROPIUM BR 0.02% INH SOLN 0.5 MG/2.5 ML VIAL INHALATION ×5 (01:41→18:25)
[2022-06-17] MEDS: ALBUTEROL SULFATE NEB 2.5 MG/3 ML INH INHALATION ×5 (01:41→18:25)
[2022-06-17] MEDS: SODIUM CHLOR 3% 15 ML NEB (RESPIRATORY THERAPY) 6 ML INHALATION (05:46)
[2022-06-17 06:28] LABS: Basophils Absolute Auto 0.1 K/mm3 (0.0-0.1); Basophils Percent Auto 0.3 % (0.2-1.2); Hematocrit 32.2 % (37.0-47.0); Hemoglobin 9.8 g/dL (12.0-15.0); Immature Granulocyte Absolute 0.26 K/mm3 (0.00-0.031); Immature Granulocyte Percent A 1.5 % (0-0.5); Lymphocytes Absolute Auto 0.66 K/mm3 (0.9-3.2); Lymphocytes Percent Auto 3.8 % (18.3-44.2); Mean Corpuscular HGB Conc 30.4 g/dl (32-36); Mean Corpuscular Hemoglobin 29.4 pg (26-34); Mean Corpuscular Volume 96.7 fl (80-100); Mean Platelet Volume 10.6 fl (7.4-10.4); Monocytes Absolute Auto 0.5 K/mm3 (0.1-0.6); Neutrophils Percent Auto 91.4 % (45.5-73.1); Nucleated Red Blood Cells Perc 0.1 % (0.0-0.2); Platelet Count Result 222 k/mm3 (150-375); Red Blood Count 3.33 M/mm3 (4.2-5.4); Red Cell Distribution Width 14.8 % (11.5-14.5); White Blood Count 17.5 K/mm3 (4.5-10.0)
[2022-06-17 06:43] LABS: Alanine Aminotransferase 23 U/L (6-35); Albumin Level 3.9 g/dL (3.5-5.1); Alkaline Phosphatase 91 U/L (38-126); Anion Gap 2 mmol/L (8-16); Aspartate Amino Transferase 24 U/L (14-36); Bilirubin,Total 0.3 mg/dL (0.2-1.3); Blood Urea Nitrogen 24 mg/dL (7-17); CRP 1.1 mg/dL (<1.0); Calcium 9.1 mg/dL (8.4-10.2); Carbon Dioxide 35 mmol/L (22-30); Chloride 102 mmol/L (98-107); Estimated CRCL calculation 49 ml/min; Estimated Glomerular Filt Rate > 60; Glucose 179 mg/dL (65-110); Sodium 139 mmol/L (137-145)
[2022-06-17 07:07] LABS: Procalcitonin 0.1 ng/mL
[2022-06-17] MEDS: ANASTROZOLE (*CHEMO) 1 MG TABLET PO (08:45)
[2022-06-17] MEDS: ENOXAPARIN 40 MG/0.4 ML SYRINGE SUB-Q (08:45)
[2022-06-17] MEDS: CHOLECALCIFEROL 1,000 UNITS TABLET 1000 UNITS PO (08:45)
[2022-06-17] MEDS: guaiFENesin 12 HR 600 MG TABCR PO ×2 (08:45→20:27)
[2022-06-17] MEDS: MULTIVITAMINS /C LUTEIN (CENTRUM SILVER) TABLET *BKC 1 TAB PO (08:45)
[2022-06-17] MEDS: FERROUS SULFATE 324 MG TABLET PO ×2 (08:45→17:19)
[2022-06-17] MEDS: OPTI-GEN TAB 1 TABLET PO (08:45)
[2022-06-17] MEDS: FOLIC ACID 1 MG TABLET PO (08:45)
[2022-06-17] MEDS: hydroCHLOROthiazide 12.5 MG CAPSULE PO (08:45)
[2022-06-17] MEDS: PARoxetine 20 MG TABLET 40 MG PO (08:45)
[2022-06-17] MEDS: CEFEPIME 2 GM/NS 50 ML 2 GM/50 ML BAG IVPB ×2 (08:46→20:27)
[2022-06-17] MEDS: ASPIRIN 81 MG ENTERIC TABLET PO (08:46)
[2022-06-17] MEDS: PREGABALIN (*CRX) 75 MG CAPSULE 150 MG PO (08:46)
--- NOTE | 2022-06-17 16:28 | PM.IMPN ---
Progress Note: A&P Assessment and Plan (1) Community acquired pneumonia: Qualifiers: Laterality: right Lung location: lower lobe of lung Qualified Code(s): J18.9 - Pneumonia, unspecified organism Code(s): J18.9 - Pneumonia, unspecified organism Status: Acute Assessment and Plan: Patient presented with increasing shortness of breath, hypoxia with increased supplemental oxygen needs, patient is immunocompromised from oral chemotherapy and leflunomide therapy. Chest x-ray and CTA chest suggest right lower lobe pneumonia. WBC 10.2 on admission. No fevers documented she denies fevers at home. Started on cefepime, vancomycin and Zithromax IV, 1st dose given 06/15/2022 urine legionella, mycoplasma and pneumococcal pending. Sputum culture sent and but shows oropharyngeal contamination MRSA nares pending 06/17/2022 WBC 17, patient does report symptomatic improvement, leukocytosis likely secondary to steroids. Continue current antibiotics as above and will deescalate pending cultures. (2) Respiratory failure: Qualifiers: Chronicity: acute on chronic Respiratory failure complication: unspecified whether with hypoxia or hypercapnia Qualified Code(s): J96.20 - Acute and chronic respiratory failure, unspecified whether with hypoxia or hypercapnia Code(s): J96.90 - Respiratory failure, unspecified, unspecified whether with hypoxia or hypercapnia Status: Acute Assessment and Plan: Acute on chronic respiratory failure secondary to pneumonia, COPD exacerbation and underlying lung cancer. Patient is on chronic oxygen 3 L daily and is now requiring up to 4 L nasal cannula. No ABG drawn on admission however SPO2 noted to drop into the 70s with activity in the ED. T CO2 elevated 36 and patient has a history of hypercapnia on previous ABGs. Continue IV antibiotics for pneumonia, IV steroids and scheduled breathing treatments for COPD exacerbation Titrate supplemental oxygen to keep SpO2 greater than 90% and continue home dose of 3 L of oxygen at nighttime. (3) COPD (chronic obstructive pulmonary disease): Qualifiers: COPD type: unspecified COPD Qualified Code(s): J44.9 - Chronic obstructive pulmonary disease, unspecified Code(s): J44.9 - Chronic obstructive pulmonary disease, unspecified Status: Acute Assessment and Plan: Acute exacerbation of COPD. No wheezing noted on exam and patient requiring increase supplemental oxygen. Continue IV Solu-Medrol 40 mg q.6 hours continue scheduled nebulizers q.4 hours And Mucinex b.i.d. 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 Continue current treatment plan. (4) Lung cancer: Qualifiers: Laterality: left Lung location: lower lobe of lung Qualified Code(s): C34.32 - Malignant neoplasm of lower lobe, left bronchus or lung Code(s): C34.90 - Malignant neoplasm of unspecified part of unspecified bronchus or lung Status: Chronic Assessment and Plan: Followed by Dr. Michaud oncology. (5) PVD (peripheral vascular disease): Code(s): I73.9 - Peripheral vascular disease, unspecified Status: Chronic Assessment and Plan: No lower extremity edema, ulcerations or pain noted. Continue aspirin. (6) Breast cancer: Qualifiers: Breast location: unspecified site of breast Estrogen receptor status: positive Patient sex: female Laterality: left Qualified Code(s): C50.912 - Malignant neoplasm of unspecified site of left female breast; Z17.0 - Estrogen receptor positive status [ER+] Code(s): C50.919 - Malignant neoplasm of unspecified site of unspecified female breast Status: Chronic Assessment and Plan: Patient is followed by Dr. Michaud. Continue anastrozole. 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
[2022-06-17 16:52] LABS: Glucose Point of Care 144 mg/dl (65-105)
[2022-06-17] MEDS: QUEtiapine FUMARATE 25 MG TABLET PO (20:27)
[2022-06-17 20:43] LABS: Glucose Point of Care 190 mg/dl (65-105)
[2022-06-18] VITALS (15 sets, daily range): BP systolic 141–144; BP diastolic 71–85; PULSE 74–98; RESP 16–22; TEMP 36.1–36.6; O2SAT 90–97
[2022-06-18 01:30] LABS: Vancomycin Trough 7.8 ug/mL (10.0-20.0)
[2022-06-18] MEDS: methylPREDNISolone SOD SUCC 40 MG VIAL IV PUSH ×4 (02:21→17:13)
[2022-06-18] MEDS: IPRATROPIUM BR 0.02% INH SOLN 0.5 MG/2.5 ML VIAL INHALATION ×4 (03:05→20:20)
[2022-06-18] MEDS: ALBUTEROL SULFATE NEB 2.5 MG/3 ML INH INHALATION ×4 (03:05→20:20)
[2022-06-18 06:35] LABS: Hematocrit 29.5 % (37.0-47.0); Hemoglobin 8.9 g/dL (12.0-15.0); Mean Corpuscular HGB Conc 30.2 g/dl (32-36); Mean Corpuscular Hemoglobin 29.2 pg (26-34); Mean Corpuscular Volume 96.7 fl (80-100); Mean Platelet Volume 11.1 fl (7.4-10.4); Platelet Count Result 216 k/mm3 (150-375); Red Blood Count 3.05 M/mm3 (4.2-5.4); White Blood Count 15.8 K/mm3 (4.5-10.0)
[2022-06-18 06:55] LABS: Anion Gap 0 mmol/L (8-16); Blood Urea Nitrogen 36 mg/dL (7-17); CRP 0.9 mg/dL (<1.0); Calcium 8.8 mg/dL (8.4-10.2); Carbon Dioxide 36 mmol/L (22-30); Chloride 101 mmol/L (98-107); Estimated CRCL calculation 44 ml/min; Estimated Glomerular Filt Rate > 60; Glucose 154 mg/dL (65-110); Potassium 4.3 mmol/L (3.4-5.0); Sodium 137 mmol/L (137-145)
[2022-06-18 07:35] LABS: Band Neutrophils Percent 1 % (0-6); Lymphocytes Absolute Manual 0.31 K/mm3 (1.1-4.5); Lymphocytes Percent Manual 2 % (18-44); Monocytes Absolute Manual 0.63 K/mm3 (0.1-0.90); Monocytes Percent Manual 4 % (3-9); Neutrophils Absolute Manual 14.69 K/mm3 (1.7-7.2); Neutrophils Percent Manual 92 % (46-73); Total Cells Counted 100
[2022-06-18 07:36] LABS: Hypochromasia 1+ (NORMAL); Metamyelocytes Percent 1 %; Nucleated Red Blood Cells 2 %; Platelet Estimate Adequate (Adequate)
[2022-06-18 07:37] LABS: Anisocytosis 1+ (NORMAL); Schistocytes None Seen (NORMAL)
[2022-06-18 07:52] LABS: Hemoglobin A1C 4.7 % (<5.7)
[2022-06-18 08:03] LABS: Glucose Point of Care 157 mg/dl (65-105)
[2022-06-18] MEDS: FOLIC ACID 1 MG TABLET PO (08:07)
[2022-06-18] MEDS: guaiFENesin 12 HR 600 MG TABCR PO ×2 (08:07→20:10)
[2022-06-18] MEDS: FERROUS SULFATE 324 MG TABLET PO ×2 (08:07→17:13)
[2022-06-18] MEDS: ASPIRIN 81 MG ENTERIC TABLET PO (08:07)
[2022-06-18] MEDS: hydroCHLOROthiazide 12.5 MG CAPSULE PO (08:07)
[2022-06-18] MEDS: CHOLECALCIFEROL 1,000 UNITS TABLET 1000 UNITS PO (08:07)
[2022-06-18] MEDS: MULTIVITAMINS /C LUTEIN (CENTRUM SILVER) TABLET *BKC 1 TAB PO (08:07)
[2022-06-18] MEDS: ANASTROZOLE (*CHEMO) 1 MG TABLET PO (08:07)
[2022-06-18] MEDS: PREGABALIN (*CRX) 75 MG CAPSULE 150 MG PO (08:08)
[2022-06-18] MEDS: OPTI-GEN TAB 1 TABLET PO (08:08)
[2022-06-18] MEDS: CEFEPIME 2 GM/NS 50 ML 2 GM/50 ML BAG IVPB (08:08)
[2022-06-18] MEDS: ENOXAPARIN 40 MG/0.4 ML SYRINGE SUB-Q (08:08)
[2022-06-18] MEDS: PARoxetine 20 MG TABLET 40 MG PO (08:08)
[2022-06-18 08:15] LABS: Procalcitonin 0.1 ng/mL
--- NOTE | 2022-06-18 08:35 | PM.IMPN ---
Progress Note: A&P Assessment and Plan (1) Community acquired pneumonia: Qualifiers: Laterality: right Lung location: lower lobe of lung Qualified Code(s): J18.9 - Pneumonia, unspecified organism Code(s): J18.9 - Pneumonia, unspecified organism Status: Acute Assessment and Plan: Patient presented with increasing shortness of breath, hypoxia with increased supplemental oxygen needs, patient is immunocompromised from oral chemotherapy and leflunomide therapy. Chest x-ray and CTA chest suggest right lower lobe pneumonia. WBC 10.2 on admission. No fevers documented she denies fevers at home. Started on cefepime, vancomycin and Zithromax IV, 1st dose given 06/15/2022 to 06/18/22 urine legionella, mycoplasma and pneumococcal pending. Sputum culture sent and but shows oropharyngeal contamination MRSA nares positive. Start bactoban intranasal BID x5 days. 06/17/2022 WBC 17, patient does report symptomatic improvement, leukocytosis likely secondary to steroids. Continue current antibiotics as above and will deescalate pending cultures. 06/18/22 Changed to levaquin 750 mg PO renally dosed and Doxycycline 100 mg PO BID for pseudomonas and MRSA coverage. Vancomycin trough was low at 7.8. Repeat CXR pending (2) Respiratory failure: Qualifiers: Chronicity: acute on chronic Respiratory failure complication: unspecified whether with hypoxia or hypercapnia Qualified Code(s): J96.20 - Acute and chronic respiratory failure, unspecified whether with hypoxia or hypercapnia Code(s): J96.90 - Respiratory failure, unspecified, unspecified whether with hypoxia or hypercapnia Status: Acute Assessment and Plan: Acute on chronic respiratory failure secondary to pneumonia, COPD exacerbation and underlying lung cancer. Patient is on chronic oxygen 3 L daily and is now requiring up to 4 L nasal cannula. No ABG drawn on admission however SPO2 noted to drop into the 70s with activity in the ED. T CO2 elevated 36 and patient has a history of hypercapnia on previous ABGs. Continue IV antibiotics for pneumonia, IV steroids and scheduled breathing treatments for COPD exacerbation Titrate supplemental oxygen to keep SpO2 greater than 90% and continue home dose of 3 L of oxygen at nighttime. 06/18/22 O2 needs up to 5L today due to desaturation with ambulation. Repeat CXR pending (3) COPD (chronic obstructive pulmonary disease): Qualifiers: COPD type: unspecified COPD Qualified Code(s): J44.9 - Chronic obstructive pulmonary disease, unspecified Code(s): J44.9 - Chronic obstructive pulmonary disease, unspecified Status: Acute Assessment and Plan: Acute exacerbation of COPD. No wheezing noted on exam and patient requiring increase supplemental oxygen. Continue IV Solu-Medrol 40 mg q.6 hours continue scheduled nebulizers q.4 hours And Mucinex b.i.d. 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 Continue current treatment plan. Continue treatment plan unchanged until repeat imaging reviewed. (4) Lung cancer: Qualifiers: Laterality: left Lung location: lower lobe of lung Qualified Code(s): C34.32 - Malignant neoplasm of lower lobe, left bronchus or lung Code(s): C34.90 - Malignant neoplasm of unspecified part of unspecified bronchus or lung Status: Chronic Assessment and Plan: Followed by Dr. Michaud oncology. (5) PVD (peripheral vascular disease): Code(s): I73.9 - Peripheral vascular disease, unspecified Status: Chronic Assessment and Plan: No lower extremity edema, ulcerations or pain noted. Continue aspirin. (6) Breast cancer: Qualifiers: Breast location: unspecified site of breast Estrogen receptor status: positive Laterality: left Patient sex: female Qualified Code(s): C50.912 - Malignant neoplasm of unspeci
[2022-06-18] MEDS: levoFLOXacin 750 MG TABLET PO (10:08)
--- NOTE | 2022-06-18 11:16 | PCRCNOTE ---
RN documented not given for 0800 respiratory treatment but the treatment was given at 0730 by RT
[2022-06-18 12:11] LABS: Glucose Point of Care 132 mg/dl (65-105)
[2022-06-18 15:17] LABS: Influenza A QL RT-PCR Negative (Negative); Influenza B QL RT-PCR Negative (Negative); RSV RNA, RT-PCR Negative (Negative); SARS-CoV-2 RNA PCR Negative (Negative)
[2022-06-18 17:03] LABS: Glucose Point of Care 123 mg/dl (65-105)
[2022-06-18] MEDS: MUPIROCIN 2% OINT 22 GM TUBE 1 APPLIC EACH NARE (20:10)
[2022-06-18] MEDS: QUEtiapine FUMARATE 25 MG TABLET PO (20:10)
[2022-06-18] MEDS: DOXYCYCLINE HYCLATE 100 MG TABLET PO (20:10)
[2022-06-18] MEDS: SALINE 0.65% NAS SOLN 44 ML BTL 1 SPRAY NASAL (20:10)
[2022-06-19] VITALS (17 sets, daily range): BP systolic 123–147; BP diastolic 63–71; PULSE 88–103; RESP 14–22; TEMP 36.2–36.4; O2SAT 90–98
[2022-06-19] MEDS: methylPREDNISolone SOD SUCC 40 MG VIAL IV PUSH ×4 (00:03→17:41)
[2022-06-19] MEDS: IPRATROPIUM BR 0.02% INH SOLN 0.5 MG/2.5 ML VIAL INHALATION ×5 (02:07→20:56)
[2022-06-19] MEDS: ALBUTEROL SULFATE NEB 2.5 MG/3 ML INH INHALATION ×5 (02:07→20:53)
--- NOTE | 2022-06-19 05:41 | PCRCNOTE ---
No sputum obtained during sputum induction. Specimen cup left at bed side.
[2022-06-19] MEDS: SODIUM CHLOR 3% 15 ML NEB (RESPIRATORY THERAPY) 6 ML INHALATION (05:43)
--- NOTE | 2022-06-19 05:44 | PCRCNOTE ---
Patient did not wish to be awakened twice for her updraft treatments (@ 0000 & 0400), therefore, she got a treatment at 0200, then sputum induction at 0543. Updraft treatments to resume q4 at 0800.
[2022-06-19 06:27] LABS: Basophils Absolute Auto 0.1 K/mm3 (0.0-0.1); Basophils Percent Auto 0.3 % (0.2-1.2); Eosinophils Percent Auto 0.1 % (0-4.4); Hematocrit 30.5 % (37.0-47.0); Hemoglobin 9.4 g/dL (12.0-15.0); Immature Granulocyte Absolute 0.68 K/mm3 (0.00-0.031); Immature Granulocyte Percent A 4.3 % (0-0.5); Lymphocytes Absolute Auto 0.96 K/mm3 (0.9-3.2); Mean Corpuscular HGB Conc 30.8 g/dl (32-36); Mean Corpuscular Hemoglobin 29.9 pg (26-34); Mean Corpuscular Volume 97.1 fl (80-100); Mean Platelet Volume 10.8 fl (7.4-10.4); Monocytes Absolute Auto 0.8 K/mm3 (0.1-0.6); Monocytes Percent Auto 5.1 % (2.6-8.5); Neutrophils Absolute Auto 13.5 K/mm3 (1.3-6.7); Neutrophils Percent Auto 84.2 % (45.5-73.1); Nucleated Red Blood Cells Absolute Auto 0.1 K/mm3 (0.0-0.012); Nucleated Red Blood Cells Perc 0.8 % (0.0-0.2); Platelet Count Result 245 k/mm3 (150-375); Red Blood Count 3.14 M/mm3 (4.2-5.4); Red Cell Distribution Width 14.9 % (11.5-14.5)
[2022-06-19 06:40] LABS: Anion Gap -1 mmol/L (8-16); Blood Urea Nitrogen 35 mg/dL (7-17); Calcium 9.1 mg/dL (8.4-10.2); Carbon Dioxide 38 mmol/L (22-30); Chloride 100 mmol/L (98-107); Estimated CRCL calculation 49 ml/min; Estimated Glomerular Filt Rate > 60; Glucose 134 mg/dL (65-110); Potassium 4.7 mmol/L (3.4-5.0); Sodium 137 mmol/L (137-145)
[2022-06-19 07:58] LABS: Glucose Point of Care 140 mg/dl (65-105)
--- NOTE | 2022-06-19 08:04 | PCRCNOTE ---
sputum sample not obtained at 0500. pt has sputum cup at beside and has been educated that when she coughs up sputum to expel it into the sputum cup and call her RN.
[2022-06-19] MEDS: FERROUS SULFATE 324 MG TABLET PO ×2 (08:24→17:41)
[2022-06-19] MEDS: FOLIC ACID 1 MG TABLET PO (09:23)
[2022-06-19] MEDS: MUPIROCIN 2% OINT 22 GM TUBE 1 APPLIC EACH NARE ×2 (09:23→20:30)
[2022-06-19] MEDS: OPTI-GEN TAB 1 TABLET PO (09:24)
[2022-06-19] MEDS: PARoxetine 20 MG TABLET 40 MG PO (09:24)
[2022-06-19] MEDS: CHOLECALCIFEROL 1,000 UNITS TABLET 1000 UNITS PO (09:24)
[2022-06-19] MEDS: hydroCHLOROthiazide 12.5 MG CAPSULE PO (09:24)
[2022-06-19] MEDS: guaiFENesin 12 HR 600 MG TABCR PO (09:24)
[2022-06-19] MEDS: DOXYCYCLINE HYCLATE 100 MG TABLET PO ×2 (09:24→20:30)
[2022-06-19] MEDS: ASPIRIN 81 MG ENTERIC TABLET PO (09:24)
[2022-06-19] MEDS: MULTIVITAMINS /C LUTEIN (CENTRUM SILVER) TABLET *BKC 1 TAB PO (09:24)
[2022-06-19] MEDS: ANASTROZOLE (*CHEMO) 1 MG TABLET PO (09:24)
[2022-06-19] MEDS: SALINE 0.65% NAS SOLN 44 ML BTL 1 SPRAY NASAL ×2 (09:30→20:30)
[2022-06-19] MEDS: ENOXAPARIN 40 MG/0.4 ML SYRINGE SUB-Q (09:30)
[2022-06-19] MEDS: PREGABALIN (*CRX) 75 MG CAPSULE 150 MG PO (09:36)
[2022-06-19 11:59] LABS: Glucose Point of Care 163 mg/dl (65-105)
--- NOTE | 2022-06-19 12:12 | PM.IMPN ---
Progress Note: A&P Assessment and Plan (1) Community acquired pneumonia: Qualifiers: Laterality: right Lung location: lower lobe of lung Qualified Code(s): J18.9 - Pneumonia, unspecified organism Code(s): J18.9 - Pneumonia, unspecified organism Status: Acute Assessment and Plan: Patient presented with increasing shortness of breath, hypoxia with increased supplemental oxygen needs, patient is immunocompromised from oral chemotherapy and leflunomide therapy.? Chest x-ray and CTA chest suggest right lower lobe pneumonia. WBC 10.2 on admission.? No fevers documented she denies fevers at home.? Started on cefepime, vancomycin and Zithromax IV, 1st dose given 06/15/2022 to 06/18/22 urine legionella, mycoplasma and pneumococcal pending. Sputum culture sent and but shows oropharyngeal contamination MRSA nares positive. Start bactoban intranasal BID x5 days. 06/17/2022 WBC 17, patient does report symptomatic improvement, leukocytosis likely secondary to steroids.? Continue current antibiotics as above and will deescalate pending cultures. 06/18/22 Changed to levaquin 750 mg PO renally dosed and Doxycycline 100 mg PO BID for pseudomonas and MRSA coverage. Vancomycin trough was low at 7.8. Repeat CXR with small right pleural effusion (2) Respiratory failure: Qualifiers: Chronicity: acute on chronic Respiratory failure complication: unspecified whether with hypoxia or hypercapnia Qualified Code(s): J96.20 - Acute and chronic respiratory failure, unspecified whether with hypoxia or hypercapnia Code(s): J96.90 - Respiratory failure, unspecified, unspecified whether with hypoxia or hypercapnia Status: Acute Assessment and Plan: Acute on chronic respiratory failure secondary to pneumonia, COPD exacerbation and underlying lung cancer.? Patient is on chronic oxygen 3 L daily and is now requiring up to 4 L nasal cannula.? No ABG drawn on admission however SPO2 noted to drop into the 70s with activity in the ED. T CO2 elevated 36 and patient has a history of hypercapnia on previous ABGs.? Continue IV antibiotics for pneumonia, IV steroids and scheduled breathing treatments for COPD exacerbation Titrate supplemental oxygen to keep SpO2 greater than 90% and continue home dose of 3 L of oxygen at nighttime. 06/18/22 O2 needs up to 5L today due to desaturation with ambulation. Repeat CXR as above. 06/19/22 Give lasix 40 mg IVP x1 and re-evaluate respiratory status. BNP 1600. Will consult Pulmonology and repeat CT chest if no improvement in 24-48 hours. (3) COPD (chronic obstructive pulmonary disease): Qualifiers: COPD type: unspecified COPD Qualified Code(s): J44.9 - Chronic obstructive pulmonary disease, unspecified Code(s): J44.9 - Chronic obstructive pulmonary disease, unspecified Status: Acute Assessment and Plan: Acute exacerbation of COPD.? No wheezing noted on exam and patient requiring increase supplemental oxygen. Continue IV Solu-Medrol 40 mg q.6 hours continue scheduled nebulizers q.4 hours And Mucinex b.i.d. 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 Continue current treatment plan. Continue treatment plan unchanged until repeat imaging reviewed. (4) Lung cancer: Qualifiers: Laterality: left Lung location: lower lobe of lung Qualified Code(s): C34.32 - Malignant neoplasm of lower lobe, left bronchus or lung Code(s): C34.90 - Malignant neoplasm of unspecified part of unspecified bronchus or lung Status: Chronic Assessment and Plan: Followed by Dr. Michaud. Continue outpatient management. (5) PVD (peripheral vascular disease): Code(s): I73.9 - Peripheral vascular disease, unspecified Status: Chronic Assessment and Plan: No lower extremity edema, ulcerations or pain noted.? Continue aspirin. (6) Breast cancer:
[2022-06-19 12:34] LABS: NT Pro B Type Natriuretic Pept 1600 pg/mL (19.9-100)
--- NOTE | 2022-06-19 12:54 | PCRCNOTE ---
sputum sample obtained and given to RN to send to lab
[2022-06-19] MEDS: FUROSEMIDE INJ 40 MG/4 ML VIAL IV PUSH (13:22)
[2022-06-19 17:12] LABS: Glucose Point of Care 168 mg/dl (65-105)
[2022-06-19] MEDS: guaiFENesin 12 HR 600 MG TABCR 1200 MG PO (20:30)
[2022-06-19] MEDS: QUEtiapine FUMARATE 25 MG TABLET PO (20:30)
[2022-06-19 20:52] LABS: Glucose Point of Care 198 mg/dl (65-105)
[2022-06-20] VITALS (16 sets, daily range): BP systolic 124–130; BP diastolic 73–75; PULSE 80–100; RESP 16–20; TEMP 36.2–37.1; O2SAT 90–98
--- NOTE | 2022-06-20 | ECHO_ITS ---
Patient Info Name: May Deatherage Age: 76 years : 1945 Gender: Female Ht: 61 in Wt: 161 lbs BSA: 1.80 m2 HR: 93 bpm BP: 130 / 73 mmHg Technical Quality: Fair Exam Date: 06/20/2022 1:22 PM Exam Location: [facility] Patient Status: Inpatient Admit Date: 06/15/2022 Staff Ordering Physician: Fadia Escobedo APRN Aircraft Captain: SHIMA Attending Provider: Leslie Manjarrez MD Referring Physician: Fanny MEI; Exam Type: CA echo doppler color flow Study Info Indications J90 - Pleural effusion, not elsewhere classified Complete two-dimensional, color flow and Doppler transthoracic echocardiogram is performed. Summary 1. Complete two-dimensional, color flow and Doppler transthoracic echocardiogram is performed. 2. Left ventricular chamber dimension is normal. 3. Left ventricular systolic function is normal, estimated at 65-70%. 4. There is moderate concentric increased left ventricular wall thickness. 5. The left ventricular diastolic function is grade I diastolic dysfunction. 6. E/e' 13 is mildly elevated. 7. There is mild aortic valve sclerosis. 8. There is trace aortic valve regurgitation. Left Ventricle E/e' 13 is mildly elevated. Left ventricular chamber dimension is normal. Left ventricular systolic function is normal, estimated at 65-70%. There is moderate concentric increased left ventricular wall thickness. The left ventricular diastolic function is grade I diastolic dysfunction. Right Ventricle Right ventricular systolic function is normal and with normal TAPSE 1.8 cm. Right ventricular chamber dimension is normal. Left Atria Left atrial chamber dimension is normal. Right Atria Right atrial chamber dimension is normal. Aortic Valve The aortic valve is probable trileaflet. There is mild aortic valve sclerosis. There is no aortic valve stenosis. There is trace aortic valve regurgitation. Pulmonic Valve There is no pulmonic regurgitation. Mitral Valve There is no mitral valve stenosis. There is no mitral valve regurgitation. Tricuspid Valve There is no tricuspid valve regurgitation. Pericardium/Pleural There is no pericardial effusion. Inferior Vena Cava Normal inferior vena cava with >50% collapse upon inspiration consistent with normal right atrial pressure, 5 mmHg. Aorta The aortic root size at the sinus of Valsalva is normal. Left Ventricular Outflow Tract Name Value Normal LVOT 2D LVOT Diameter 2.1 cm LVOT Doppler LVOT Peak Gradient 6 mmHg LVOT Mean Gradient 3 mmHg LVOT VTI 30 cm LVOT VTI/AV VTI Ratio 0.9 LVOT Stroke Volume 103 ml LVOT CO 14.7 l/min LVOT CI 8.2 l/min/m2 Pulmonic Valve Name Value Normal PV Doppler PV Peak Gradient 5 mmHg Mitral Valve
[2022-06-20] MEDS: IPRATROPIUM BR 0.02% INH SOLN 0.5 MG/2.5 ML VIAL INHALATION ×6 (00:14→23:30)
[2022-06-20] MEDS: ALBUTEROL SULFATE NEB 2.5 MG/3 ML INH INHALATION ×6 (00:14→23:30)
[2022-06-20] MEDS: methylPREDNISolone SOD SUCC 40 MG VIAL IV PUSH ×4 (00:30→21:17)
[2022-06-20 02:48] LABS: Pneumococcal Antigen Urine Not Detected (Not Detected)
[2022-06-20 06:38] LABS: Basophils Percent Auto 0.2 % (0.2-1.2); Eosinophils Percent Auto 0.1 % (0-4.4); Hematocrit 31.8 % (37.0-47.0); Hemoglobin 9.7 g/dL (12.0-15.0); Immature Granulocyte Absolute 0.67 K/mm3 (0.00-0.031); Immature Granulocyte Percent A 5.3 % (0-0.5); Lymphocytes Absolute Auto 0.97 K/mm3 (0.9-3.2); Lymphocytes Percent Auto 7.7 % (18.3-44.2); Mean Corpuscular HGB Conc 30.5 g/dl (32-36); Mean Corpuscular Hemoglobin 29.4 pg (26-34); Mean Corpuscular Volume 96.4 fl (80-100); Mean Platelet Volume 10.8 fl (7.4-10.4); Monocytes Absolute Auto 0.9 K/mm3 (0.1-0.6); Monocytes Percent Auto 7.2 % (2.6-8.5); Neutrophils Percent Auto 79.5 % (45.5-73.1); Nucleated Red Blood Cells Absolute Auto 0.2 K/mm3 (0.0-0.012); Nucleated Red Blood Cells Perc 1.4 % (0.0-0.2); Platelet Count Result 236 k/mm3 (150-375); Red Cell Distribution Width 14.7 % (11.5-14.5); White Blood Count 12.5 K/mm3 (4.5-10.0)
[2022-06-20 06:53] LABS: Anion Gap 3 mmol/L (8-16); Blood Urea Nitrogen 39 mg/dL (7-17); Calcium 9.1 mg/dL (8.4-10.2); Carbon Dioxide 38 mmol/L (22-30); Chloride 97 mmol/L (98-107); Estimated CRCL calculation 49 ml/min; Estimated Glomerular Filt Rate > 60; Glucose 141 mg/dL (65-110); Potassium 4.1 mmol/L (3.4-5.0); Sodium 138 mmol/L (137-145)
[2022-06-20 07:42] LABS: Glucose Point of Care 142 mg/dl (65-105)
[2022-06-20] MEDS: ANASTROZOLE (*CHEMO) 1 MG TABLET PO (08:09)
[2022-06-20] MEDS: levoFLOXacin 750 MG TABLET PO (08:09)
[2022-06-20] MEDS: hydroCHLOROthiazide 12.5 MG CAPSULE PO (08:09)
[2022-06-20] MEDS: OPTI-GEN TAB 1 TABLET PO (08:09)
[2022-06-20] MEDS: MUPIROCIN 2% OINT 22 GM TUBE 1 APPLIC EACH NARE ×2 (08:09→21:17)
[2022-06-20] MEDS: MULTIVITAMINS /C LUTEIN (CENTRUM SILVER) TABLET *BKC 1 TAB PO (08:09)
[2022-06-20] MEDS: ASPIRIN 81 MG ENTERIC TABLET PO (08:09)
[2022-06-20] MEDS: ENOXAPARIN 40 MG/0.4 ML SYRINGE SUB-Q (08:10)
[2022-06-20] MEDS: FOLIC ACID 1 MG TABLET PO (08:10)
[2022-06-20] MEDS: PARoxetine 20 MG TABLET 40 MG PO (08:10)
[2022-06-20] MEDS: FERROUS SULFATE 324 MG TABLET PO ×2 (08:10→16:32)
[2022-06-20] MEDS: CHOLECALCIFEROL 1,000 UNITS TABLET 1000 UNITS PO (08:10)
[2022-06-20] MEDS: DOXYCYCLINE HYCLATE 100 MG TABLET PO ×2 (08:10→21:17)
--- NOTE | 2022-06-20 09:44 | PM.IMPN ---
Progress Note: A&P Assessment and Plan (1) Community acquired pneumonia: Qualifiers: Laterality: right Lung location: lower lobe of lung Qualified Code(s): J18.9 - Pneumonia, unspecified organism Code(s): J18.9 - Pneumonia, unspecified organism Status: Acute Assessment and Plan: Patient presented with increasing shortness of breath, hypoxia with increased supplemental oxygen needs, patient is immunocompromised from oral chemotherapy and leflunomide therapy.? Chest x-ray and CTA chest suggest right lower lobe pneumonia. WBC 10.2 on admission.? No fevers documented she denies fevers at home.? Started on cefepime, vancomycin and Zithromax IV, 1st dose given 06/15/2022 to 06/18/22. Vancomycin trough was low at 7.8 on 06/18/22 urine urine pneumococcal not detected. Legionella pending Sputum culture sent and but shows oropharyngeal contamination MRSA nares positive. Start bactoban intranasal BID x5 days. 06/17/2022 WBC 17, patient does report symptomatic improvement, leukocytosis likely secondary to steroids.? Continue current antibiotics as above and will deescalate pending cultures. 06/18/22 Changed to levaquin 750 mg PO renally dosed and Doxycycline 100 mg PO BID for pseudomonas and MRSA coverage. continue antibiotics to 06/23/22. 06/19 repeat CXR with small right pleural effusion (2) Respiratory failure: Qualifiers: Chronicity: acute on chronic Respiratory failure complication: unspecified whether with hypoxia or hypercapnia Qualified Code(s): J96.20 - Acute and chronic respiratory failure, unspecified whether with hypoxia or hypercapnia Code(s): J96.90 - Respiratory failure, unspecified, unspecified whether with hypoxia or hypercapnia Status: Acute Assessment and Plan: Acute on chronic respiratory failure secondary to pneumonia, COPD exacerbation and underlying lung cancer.? Patient is on chronic oxygen 3 L daily and is now requiring up to 4 L nasal cannula.? No ABG drawn on admission however SPO2 noted to drop into the 70s with activity in the ED. T CO2 elevated 36 and patient has a history of hypercapnia on previous ABGs.? Continue IV antibiotics for pneumonia, IV steroids and scheduled breathing treatments for COPD exacerbation Titrate supplemental oxygen to keep SpO2 greater than 90% and continue home dose of 3 L of oxygen at nighttime. 06/18/22 O2 needs up to 5L today due to desaturation with ambulation. Repeat CXR as above. 06/19/22 Give lasix 40 mg IVP x1 and re-evaluate respiratory status. BNP 1600. Will consult Pulmonology and repeat CT chest if no improvement in 24-48 hours. 06/20/2022 patient able to be weaned down to 4 L within proved air entry and decreased wheezing. Give additional dose of Lasix 40 mg IV push x1 today (3) COPD (chronic obstructive pulmonary disease): Qualifiers: COPD type: unspecified COPD Qualified Code(s): J44.9 - Chronic obstructive pulmonary disease, unspecified Code(s): J44.9 - Chronic obstructive pulmonary disease, unspecified Status: Acute Assessment and Plan: Acute exacerbation of COPD.? No wheezing noted on exam and patient requiring increase supplemental oxygen. Continue IV Solu-Medrol 40 mg q.6 hours continue scheduled nebulizers q.4 hours And Mucinex b.i.d. 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 Continue current treatment plan. Continue treatment plan unchanged until repeat imaging reviewed. 06/20/22 wean steroids 40 mg IV Solu-Medrol q.8 hours. Transition to oral prednisone with taper if continues to improve. (4) Lung cancer: Qualifiers: Laterality: left Lung location: lower lobe of lung Qualified Code(s): C34.32 - Malignant neoplasm of lower lobe, left bronchus or lung Code(s): C34.90 - Malignant neoplasm of unspecified part of unspecified bronchus or lung Status: Chronic Assessment and
[2022-06-20] MEDS: PREGABALIN (*CRX) 75 MG CAPSULE 150 MG PO (10:33)
[2022-06-20] MEDS: guaiFENesin 12 HR 600 MG TABCR 1200 MG PO ×2 (10:33→21:17)
[2022-06-20] MEDS: SALINE 0.65% NAS SOLN 44 ML BTL 1 SPRAY NASAL ×2 (10:34→21:18)
[2022-06-20 11:44] LABS: Glucose Point of Care 170 mg/dl (65-105)
[2022-06-20] MEDS: POTASSIUM CHLORIDE 20 MEQ TABLET PO (15:01)
[2022-06-20] MEDS: FUROSEMIDE INJ 40 MG/4 ML VIAL IV PUSH (15:01)
[2022-06-20 16:49] LABS: Glucose Point of Care 166 mg/dl (65-105)
[2022-06-20 20:38] LABS: Glucose Point of Care 170 mg/dl (65-105)
[2022-06-20] MEDS: QUEtiapine FUMARATE 25 MG TABLET PO (21:18)
[2022-06-21] VITALS (13 sets, daily range): BP systolic 112–135; BP diastolic 73–78; PULSE 88–101; RESP 16–22; TEMP 36.4–36.8; O2SAT 93–97
[2022-06-21 02:19] LABS: Legionella pneumophila Ag Ur Not Detected (Not Detected)
[2022-06-21] MEDS: methylPREDNISolone SOD SUCC 40 MG VIAL IV PUSH (05:40)
[2022-06-21 06:41] LABS: Hematocrit 31.4 % (37.0-47.0); Hemoglobin 9.8 g/dL (12.0-15.0); Mean Corpuscular HGB Conc 31.2 g/dl (32-36); Mean Corpuscular Hemoglobin 29.9 pg (26-34); Mean Corpuscular Volume 95.7 fl (80-100); Mean Platelet Volume 10.6 fl (7.4-10.4); Platelet Count Result 243 k/mm3 (150-375); Red Blood Count 3.28 M/mm3 (4.2-5.4); Red Cell Distribution Width 14.9 % (11.5-14.5); White Blood Count 12.5 K/mm3 (4.5-10.0)
[2022-06-21 06:51] LABS: Anion Gap 1 mmol/L (8-16); Blood Urea Nitrogen 42 mg/dL (7-17); Calcium 8.5 mg/dL (8.4-10.2); Carbon Dioxide 38 mmol/L (22-30); Chloride 96 mmol/L (98-107); Estimated CRCL calculation 49 ml/min; Estimated Glomerular Filt Rate > 60; Glucose 120 mg/dL (65-110); Magnesium 2.2 mg/dL (1.6-2.3); Potassium 4.4 mmol/L (3.4-5.0); Sodium 135 mmol/L (137-145)
[2022-06-21 07:42] LABS: Glucose Point of Care 133 mg/dl (65-105)
[2022-06-21] MEDS: IPRATROPIUM BR 0.02% INH SOLN 0.5 MG/2.5 ML VIAL INHALATION ×3 (08:45→19:33)
[2022-06-21] MEDS: ALBUTEROL SULFATE NEB 2.5 MG/3 ML INH INHALATION ×3 (08:45→19:34)
[2022-06-21] MEDS: guaiFENesin 12 HR 600 MG TABCR 1200 MG PO ×2 (09:24→23:20)
[2022-06-21] MEDS: DOXYCYCLINE HYCLATE 100 MG TABLET PO ×2 (09:24→23:20)
[2022-06-21] MEDS: OPTI-GEN TAB 1 TABLET PO (09:24)
[2022-06-21] MEDS: CHOLECALCIFEROL 1,000 UNITS TABLET 1000 UNITS PO (09:24)
[2022-06-21] MEDS: hydroCHLOROthiazide 12.5 MG CAPSULE PO (09:24)
[2022-06-21] MEDS: PARoxetine 20 MG TABLET 40 MG PO (09:24)
[2022-06-21] MEDS: MULTIVITAMINS /C LUTEIN (CENTRUM SILVER) TABLET *BKC 1 TAB PO (09:25)
[2022-06-21] MEDS: ASPIRIN 81 MG ENTERIC TABLET PO (09:25)
[2022-06-21] MEDS: FERROUS SULFATE 324 MG TABLET PO ×2 (09:25→17:33)
[2022-06-21] MEDS: FOLIC ACID 1 MG TABLET PO (09:25)
[2022-06-21] MEDS: ANASTROZOLE (*CHEMO) 1 MG TABLET PO (09:25)
[2022-06-21] MEDS: PREGABALIN (*CRX) 75 MG CAPSULE 150 MG PO (09:26)
[2022-06-21] MEDS: ENOXAPARIN 40 MG/0.4 ML SYRINGE SUB-Q (09:26)
[2022-06-21] MEDS: MUPIROCIN 2% OINT 22 GM TUBE 1 APPLIC EACH NARE ×2 (09:35→23:20)
[2022-06-21] MEDS: SALINE 0.65% NAS SOLN 44 ML BTL 1 SPRAY NASAL ×2 (09:35→23:20)
--- NOTE | 2022-06-21 11:07 | PCPTNOTE ---
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 RN made aware. Will follow.
--- NOTE | 2022-06-21 11:21 | PCOTNOTE ---
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 RN made aware. Will follow.
[2022-06-21 11:32] LABS: Glucose Point of Care 219 mg/dl (65-105)
[2022-06-21] MEDS: INSULIN ASPART (*BKC) 100 UNITS/ML SUB-Q (12:21)
--- NOTE | 2022-06-21 12:24 | PM.IMPN ---
Progress Note: A&P Assessment and Plan (1) Community acquired pneumonia: Qualifiers: Laterality: right Lung location: lower lobe of lung Qualified Code(s): J18.9 - Pneumonia, unspecified organism Code(s): J18.9 - Pneumonia, unspecified organism Status: Acute Assessment and Plan: Patient presented with increasing shortness of breath, hypoxia with increased supplemental oxygen needs, patient is immunocompromised from oral chemotherapy and leflunomide therapy.? Chest x-ray and CTA chest suggest right lower lobe pneumonia. WBC 10.2 on admission.? No fevers documented she denies fevers at home.? Started on cefepime, vancomycin and Zithromax IV, 1st dose given 06/15/2022 to 06/18/22. Vancomycin trough was low at 7.8 on 06/18/22 urine urine pneumococcal not detected. Legionella pending Sputum culture sent and but shows oropharyngeal contamination MRSA nares positive. Start bactoban intranasal BID x5 days. 06/17/2022 WBC 17, patient does report symptomatic improvement, leukocytosis likely secondary to steroids.? Continue current antibiotics as above and will deescalate pending cultures. 06/18/22 Changed to levaquin 750 mg PO renally dosed and Doxycycline 100 mg PO BID for pseudomonas and MRSA coverage. continue antibiotics to 06/23/22. 06/19/22 repeat CXR with small right pleural effusion 06/21/22 last dose of Levaquin to be 06/22/22 and patient will have received 7 days total coverage for Pseudomonas and atypical organisms. Doxycycline day 4 and to be continued until for MRSA coverage. CRP and procalcitonin normalized on 06/18/2022 suggesting improvement in bacterial pneumonia. WBC 12.5 but likely elevated due to steroid use. (2) Respiratory failure: Qualifiers: Chronicity: acute on chronic Respiratory failure complication: unspecified whether with hypoxia or hypercapnia Qualified Code(s): J96.20 - Acute and chronic respiratory failure, unspecified whether with hypoxia or hypercapnia Code(s): J96.90 - Respiratory failure, unspecified, unspecified whether with hypoxia or hypercapnia Status: Acute Assessment and Plan: Acute on chronic respiratory failure secondary to pneumonia, COPD exacerbation and underlying lung cancer.? Patient is on chronic oxygen 3 L daily and is now requiring up to 4 L nasal cannula.? No ABG drawn on admission however SPO2 noted to drop into the 70s with activity in the ED. T CO2 elevated 36 and patient has a history of hypercapnia on previous ABGs.? Continue IV antibiotics for pneumonia, IV steroids and scheduled breathing treatments for COPD exacerbation Titrate supplemental oxygen to keep SpO2 greater than 90% and continue home dose of 3 L of oxygen at nighttime. 06/18/22 O2 needs up to 5L today due to desaturation with ambulation. Repeat CXR as above. 06/19/22 Give lasix 40 mg IVP x1 and re-evaluate respiratory status. BNP 1600. Will consult Pulmonology and repeat CT chest if no improvement in 24-48 hours. 06/20/2022 patient able to be weaned down to 4 L within proved air entry and decreased wheezing. Give additional dose of Lasix 40 mg IV push x1 today 06/21/2022 improving no wheezing on exam. Ambulate more and monitor SpO2 on home oxygen level. Patient still with desaturation with activity <85% and requiring 6L O2 NC. Will repeat CTA chest. Check ABG (3) COPD (chronic obstructive pulmonary disease): Qualifiers: COPD type: unspecified COPD Qualified Code(s): J44.9 - Chronic obstructive pulmonary disease, unspecified Code(s): J44.9 - Chronic obstructive pulmonary disease, unspecified Status: Acute Assessment and Plan: Acute exacerbation of COPD.? No wheezing noted on exam and patient requiring increase supplemental oxygen. Continue IV Solu-Medrol 40 mg q.6 hours continue scheduled nebulizers q.4 hours And Mucinex b.i.d. 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
[2022-06-21 16:18] LABS: Glucose Point of Care 130 mg/dl (65-105)
[2022-06-21] MEDS: QUEtiapine FUMARATE 25 MG TABLET PO (23:20)
[2022-06-22] VITALS (14 sets, daily range): BP systolic 106–127; BP diastolic 58–70; PULSE 87–129; RESP 16–20; TEMP 36.1–36.6; O2SAT 85–98
[2022-06-22] MEDS: IPRATROPIUM BR 0.02% INH SOLN 0.5 MG/2.5 ML VIAL INHALATION ×3 (02:00→14:20)
[2022-06-22] MEDS: ALBUTEROL SULFATE NEB 2.5 MG/3 ML INH INHALATION ×3 (02:00→14:20)
[2022-06-22 04:11] LABS: Glucose Point of Care 142 mg/dl (65-105)
[2022-06-22 06:35] LABS: Base Excess ABG 7.4 mEq/l (+/-2.0); HCO3 ABG 33.5 mEq/l (22.0-26.0); Oxygen Saturation ABG 88.6 % (95.0-100.0); PCO2 ABG 55.7 mmHg (35.0-45.0); PO2 ABG 56.2 mmHg (80.0-100.0); pH ABG 7.397 (7.350-7.450)
[2022-06-22 06:36] LABS: Alveolar/Arterial O2 Gradient 106.8 mmHg; Oxygen Content ABG 12.8 %vol (16.0-22.0); Total Hemoglobin 10.3 g/dL (12.0-18.0)
[2022-06-22 06:37] LABS: Carboxyhemoglobin 0.3 % THb (0-2.0); Device NASAL CANNULA; Fractional Inspired Oxygen 32 %; Methemoglobin ABG 0.3 %THb (0-1.5); Modified Allen's Test Pass; Oxyhemoglobin 87.9 % THb (90.0-100.0); PO2 FiO2 Ratio Arterial Blood 1.76 %; Reduced Hemoglobin 11.5 %THb (0-5.0); Site Drawn RIGHT RADIAL
--- NOTE | 2022-06-22 06:37 | PC.NURSE ---
notified Dr. Flores of critical ABG (pCO2: 55.7). No New orders given.
[2022-06-22 06:58] LABS: Hematocrit 31.3 % (37.0-47.0); Hemoglobin 9.6 g/dL (12.0-15.0); Mean Corpuscular HGB Conc 30.7 g/dl (32-36); Mean Corpuscular Hemoglobin 29.4 pg (26-34); Mean Corpuscular Volume 95.7 fl (80-100); Mean Platelet Volume 10.4 fl (7.4-10.4); Platelet Count Result 229 k/mm3 (150-375); Red Blood Count 3.27 M/mm3 (4.2-5.4); Red Cell Distribution Width 15.1 % (11.5-14.5); White Blood Count 9.8 K/mm3 (4.5-10.0)
[2022-06-22 07:17] LABS: Alanine Aminotransferase 45 U/L (6-35); Albumin Level 3.2 g/dL (3.5-5.1); Alkaline Phosphatase 79 U/L (38-126); Anion Gap -2 mmol/L (8-16); Aspartate Amino Transferase 26 U/L (14-36); Bilirubin,Total 0.4 mg/dL (0.2-1.3); Blood Urea Nitrogen 36 mg/dL (7-17); Calcium 8.6 mg/dL (8.4-10.2); Carbon Dioxide 39 mmol/L (22-30); Chloride 97 mmol/L (98-107); Estimated CRCL calculation 44 ml/min; Estimated Glomerular Filt Rate > 60; Glucose 83 mg/dL (65-110); Magnesium 2.2 mg/dL (1.6-2.3); Sodium 134 mmol/L (137-145)
[2022-06-22 07:25] LABS: NT Pro B Type Natriuretic Pept 398 pg/mL (19.9-100)
[2022-06-22 07:30] LABS: Glucose Point of Care 86 mg/dl (65-105)
--- NOTE | 2022-06-22 07:31 | PC.NURSE ---
[employer] system was down for most of this RN's shift. On printed APR, IV solumedrol dose was not shown. Hospitalist notified dose was not given, Hold dose per LESLYE Anthony, as patient is starting PO prednisone this morning.
[2022-06-22] MEDS: ENOXAPARIN 40 MG/0.4 ML SYRINGE SUB-Q (08:57)
[2022-06-22] MEDS: guaiFENesin 12 HR 600 MG TABCR 1200 MG PO (08:57)
[2022-06-22] MEDS: PARoxetine 20 MG TABLET 40 MG PO (08:58)
[2022-06-22] MEDS: CHOLECALCIFEROL 1,000 UNITS TABLET 1000 UNITS PO (08:58)
[2022-06-22] MEDS: predniSONE 20 MG TABLET 40 MG PO (08:58)
[2022-06-22] MEDS: MULTIVITAMINS /C LUTEIN (CENTRUM SILVER) TABLET *BKC 1 TAB PO (08:58)
[2022-06-22] MEDS: OPTI-GEN TAB 1 TABLET PO (08:58)
[2022-06-22] MEDS: DOXYCYCLINE HYCLATE 100 MG TABLET PO (08:58)
[2022-06-22] MEDS: ASPIRIN 81 MG ENTERIC TABLET PO (08:58)
[2022-06-22] MEDS: hydroCHLOROthiazide 12.5 MG CAPSULE PO (08:58)
[2022-06-22] MEDS: FERROUS SULFATE 324 MG TABLET PO ×2 (08:58→17:08)
[2022-06-22] MEDS: FOLIC ACID 1 MG TABLET PO (08:59)
[2022-06-22] MEDS: ANASTROZOLE (*CHEMO) 1 MG TABLET PO (08:59)
[2022-06-22] MEDS: lisinopriL 10 MG TABLET PO (08:59)
[2022-06-22] MEDS: MUPIROCIN 2% OINT 22 GM TUBE 1 APPLIC EACH NARE (08:59)
[2022-06-22] MEDS: SALINE 0.65% NAS SOLN 44 ML BTL 1 SPRAY NASAL (09:01)
[2022-06-22] MEDS: PREGABALIN (*CRX) 75 MG CAPSULE 150 MG PO (09:07)
--- NOTE | 2022-06-22 09:11 | PCNWS ---
Weekly nutritional screen. Patient is tolerating current diet with adequate intake. 100% on heart healthy diet. No weight loss reported. No nutritional needs at this time.
[2022-06-22 11:37] LABS: Glucose Point of Care 127 mg/dl (65-105)
--- NOTE | 2022-06-22 14:53 | PM.DS ---
DS: Admitting Diagnosis Discharge Date 06/22/22 Admitting Diagnosis CHF exacerbation, pneumonia DS: Discharge Diagnosis Discharge Diagnosis (1) Community acquired pneumonia: Qualifiers: Laterality: right Lung location: lower lobe of lung Qualified Code(s): J18.9 - Pneumonia, unspecified organism Code(s): J18.9 - Pneumonia, unspecified organism Status: Acute Assessment and Plan: Patient presented with increasing shortness of breath, hypoxia with increased supplemental oxygen needs, patient is immunocompromised from oral chemotherapy and leflunomide therapy.? Chest x-ray and CTA chest suggest right lower lobe pneumonia. WBC 10.2 on admission.? No fevers documented she denies fevers at home.? Started on cefepime, vancomycin and Zithromax IV, 1st dose given 06/15/2022 to 06/18/22. Vancomycin trough was low at 7.8 on 06/18/22 urine urine pneumococcal not detected. Legionella pending Sputum culture sent and but shows oropharyngeal contamination MRSA nares positive. Start bactoban intranasal BID x5 days. 06/17/2022 WBC 17, patient does report symptomatic improvement, leukocytosis likely secondary to steroids.? Continue current antibiotics as above and will deescalate pending cultures. 06/18/22 Changed to levaquin 750 mg PO renally dosed and Doxycycline 100 mg PO BID for pseudomonas and MRSA coverage. continue antibiotics to 06/23/22. 06/19/22 repeat CXR with small right pleural effusion 06/21/22 last dose of Levaquin to be 06/22/22 and patient will have received 7 days total coverage for Pseudomonas and atypical organisms. Doxycycline day 4 and to be continued until for MRSA coverage. CRP and procalcitonin normalized on 06/18/2022 suggesting improvement in bacterial pneumonia. WBC 12.5 but likely elevated due to steroid use. (2) Respiratory failure: Qualifiers: Chronicity: acute on chronic Respiratory failure complication: unspecified whether with hypoxia or hypercapnia Qualified Code(s): J96.20 - Acute and chronic respiratory failure, unspecified whether with hypoxia or hypercapnia Code(s): J96.90 - Respiratory failure, unspecified, unspecified whether with hypoxia or hypercapnia Status: Acute Assessment and Plan: Acute on chronic respiratory failure secondary to pneumonia, COPD exacerbation and underlying lung cancer.? Patient is on chronic oxygen 3 L daily and is now requiring up to 4 L nasal cannula.? No ABG drawn on admission however SPO2 noted to drop into the 70s with activity in the ED. T CO2 elevated 36 and patient has a history of hypercapnia on previous ABGs.? Continue IV antibiotics for pneumonia, IV steroids and scheduled breathing treatments for COPD exacerbation Titrate supplemental oxygen to keep SpO2 greater than 90% and continue home dose of 3 L of oxygen at nighttime. 06/18/22 O2 needs up to 5L today due to desaturation with ambulation. Repeat CXR as above. 06/19/22 Give lasix 40 mg IVP x1 and re-evaluate respiratory status. BNP 1600. Will consult Pulmonology and repeat CT chest if no improvement in 24-48 hours. 06/20/2022 patient able to be weaned down to 4 L within proved air entry and decreased wheezing. Give additional dose of Lasix 40 mg IV push x1 today 06/21/2022 improving no wheezing on exam. Ambulate more and monitor SpO2 on home oxygen level. Patient still with desaturation with activity <85% and requiring 6L O2 NC. 06/22 CTA revealing no evidence of PE, increased lung nodule suspicious for tumor recurrence consider correlation with PET/CT scan. Recommending follow-up with Hematology/Oncology. Ordering home O2 evaluation. Patient is doing much better and is cleared for discharge. (3) COPD (chronic obstructive pulmonary disease): Qualifiers: COPD type: unspecified COPD Qualified Code(s): J44.9 - Chronic obstructive pulmonary disease, unspecified Code(s): J44.9 - Chronic obstructive pulmonary disease, unspecified Status: Acute
--- NOTE | 2022-06-22 15:27 | HOMEO2EVAL ---
Evaluation was performed at [facility] Home Oxygen Evaluation RC: Home Oxygen (O2) Evaluation Start: 06/22/22 14:53 Freq: ONCE Status: Active Protocol: RPE Activity Type Activity Date Activity User E-sign Co-sign Detail Recorded Client Recorded Date Recorded By Document 06/22/22 14:45 [email or web address] [email or web address] 06/22/22 15:27 DJO Document 06/22/22 14:50 [email or web address] [email or web address] 06/22/22 15:27 DJO Document 06/22/22 14:55 [email or web address] [email or web address] 06/22/22 15:27 DJO Document 06/22/22 15:00 [email or web address] [email or web address] 06/22/22 15:27 DJO Document 06/22/22 15:05 [email or web address] [email or web address] 06/22/22 15:27 DJO Document 06/22/22 15:15 [email or web address] [email or web address] 06/22/22 15:27 DJO 06/22/22 06/22/22 06/22/22 14:45 14:50 14:55 Home O2 Evaluation [Oxygen] -Test Phase Resting Resting Exercise -Oxygen Delivery Nasal Cannula Nasal Cannula Nasal Cannula -Oxygen Flow Rate (L/min) 3 4 4 [Pulse Oximetry] -Pulse Oximetry (90-100 %) 88 L 91 85 L [Pulse Rate] -Pulse Rate (60-100 beats/min) 95 88 125 H [Evaluation] -Activity Tolerance [Charges] -Treatment Charges O2 Evaluation - Inpatient 06/22/22 06/22/22 06/22/22 15:00 15:05 15:15 Home O2 Evaluation [Oxygen] -Test Phase Exercise Exercise Resting -Oxygen Delivery Nasal Cannula Nasal Cannula Nasal Cannula -Oxygen Flow Rate (L/min) 5 6 4 [Pulse Oximetry] -Pulse Oximetry (90-100 %) 88 L 91 91 [Pulse Rate] -Pulse Rate (60-100 beats/min) 124 H 129 H 89 [Evaluation] -Activity Tolerance Good [Charges] -Treatment Charges
--- NOTE | 2022-06-22 15:45 | PCRCNOTE ---
HOME O2 EVAL COMPLETE, 4L AT REST AND 6L WITH ACTIVITY. [facility] TO BRING TANKS TO HOSPITAL FOR DISCHARGE. PT'S CONCENTRATOR ONLY GOES TO 5L. THEY WILL PROVIDE NEW EQUIPMENT AFTER DISCHARGE.
[2022-06-22 16:32] LABS: Glucose Point of Care 134 mg/dl (65-105)
== END 2022-06-22 19:20 | disposition home health service (06) | DRG 193 ==
LOC: ANHED 22:55 → ANH3MEDSUR 23:14
PROVIDERS: Emergency Medicine; Nurse Practitioner Family; Admitting Provider Internal Medicine; Emergency Provider Emergency Medicine; PCP Family Medicine; Visit Provider Internal Medicine Critical Care Medicine
DX: J18.9 Pneumonia, unspecified organism (principal); J96.21 Acute and chronic respiratory failure with hypoxia; J44.1 Chronic obstructive pulmonary disease with (acute) exacerbation; J44.0 Chronic obstructive pulmonary disease with (acute) lower respiratory infection; C34.32 Malignant neoplasm of lower lobe, left bronchus or lung; J90 Pleural effusion, not elsewhere classified; Z20.822 Contact with and (suspected) exposure to COVID-19; E11.65 Type 2 diabetes mellitus with hyperglycemia; C50.912 Malignant neoplasm of unspecified site of left female breast; G57.93 Unspecified mononeuropathy of bilateral lower limbs; K21.9 Gastro-esophageal reflux disease without esophagitis; L40.50 Arthropathic psoriasis, unspecified; E11.42 Type 2 diabetes mellitus with diabetic polyneuropathy; I73.9 Peripheral vascular disease, unspecified; Z96.659 Presence of unspecified artificial knee joint; F17.210 Nicotine dependence, cigarettes, uncomplicated; Z99.81 Dependence on supplemental oxygen; Z79.82 Long term (current) use of aspirin; Z90.49 Acquired absence of other specified parts of digestive tract; Z22.322 Carrier or suspected carrier of Methicillin resistant Staphylococcus aureus
CPT/HCPCS: 36415; 36600; 71046; 71275; 80048; 80053; 80202; 81003; 82375; 82565; 82805; 82948; 83036; 83050; 83690; 83735; 83880; 84145; 84484; 85025; 85027; 85610; 85730; 86140; 87040; 87070; 87081; 87205; 87449; 87637; 87899; 93005; 93306; 94618; 94640; 94667; 94668; 96365; 96375; 97161; 97165; 99285; A9270; J0456; J0692; J1100; J1650; J1815; J1940; J2920; J2930; J3370; J3475; J7512; Q9967

== ENCOUNTER 2022-08-03 09:32 | Outpatient (CLI) | payer MEDICARE, OTHER, SELFPAY ==
--- NOTE | ~2022-08-03 | XR_ITS ---
Clinical Indication: Pneumonia PA and lateral views of the chest: Comparison: 06/18/2022 Findings: The lungs are clear, without evidence of focal consolidation or pleural effusion. Cardiome diastinal silhouette is within normal limits. Bones and soft tissues are unremarkable. Impression: No significant abnormality seen radiographically. Reviewed, dictated and finalized at [facility]. Impression: No significant abnormality seen radiographically.
== END 2022-08-03 09:33 | disposition home or self-care (01) ==
PROVIDERS: PCP Family Medicine; Visit Provider Nurse Practitioner Family
DX: J18.9 Pneumonia, unspecified organism (principal)
CPT/HCPCS: 71046

== ENCOUNTER 2022-10-13 08:49 | Outpatient (CLI) | payer MEDICARE, OTHER, SELFPAY ==
--- NOTE | ~2022-10-13 | PE_ITS ---
EXAMINATION: PET skull to mid thigh DATE: 10/13/2022 10:52 INDICATION: Malignant neoplasm of overlapping sites of the left breast. Restaging. TECHNIQUE: Blood glucose level was 117 mg/dL. 10.772 mCi of 18-fluorodeoxyglucose (18-FDG) was admini stered i.v. Low dose computed tomography (CT) images were acquired from the base of the brain to the proximal thighs for attenuation correction and anatomic localization. Positron emission tomography (P ET) images were acquired in the same distribution beginning 59 minutes after injection. Images includ ing fused PET/CT images were reconstructed in axial, coronal, and sagittal planes. Automated exposure control technique was employed. The dose-length product was 463.18mGy-cm. COMPARISON: PET/CT dated 04/28/2022 and 07/27/[address] chest dated 06/22/2022 FINDINGS: Head/neck: There is symmetric increased activity in the oral and nasal cavities, bilateral submandibular glands, laryngeal muscles and ocular muscles without CT correlate, likely physiologic. Additional likely phy siologic uptake in the cervical paraspinal musculature without radiologic correlate, left greater osiris n right. No pathologically enlarged cervical lymphadenopathy or suspicious foci of increased FDG upta ke in the visualized head or neck. Chest: Postoperative change of a prior partial right upper lobectomy with suture line and associated linear scarring in the posterior upper lung zone. No significant increased uptake such with a 9 x 6 mm nodul e situated along the band of scarring in the right suprahilar region. A prior FDG avid nodular densit y along the lateral side of the suture line as well as FDG avid region of groundglass opacity in the right lower lobe have both resolved. Dependent atelectasis in the left lower lobe. No pneumonia, pulm onary edema or right pleural effusion. There is some persistent atelectasis/scarring, potentially rad iation fibrosis, along the inferolateral lingula immediately underlying ununited anterior right third and fourth rib fractures. No change since 07/27/2020 in diffuse mild FDG uptake with maximal SUV of 2 .7 cm with a region of chronic soft tissue thickening along the anterolateral left chest wall immedia tely overlying the site of the rib fractures or of chronic asymmetric skin thickening with diffuse mi ld FDG uptake at the left breast, both findings likely related to prior radiation treatment. Cardiomegaly. Minimal atherosclerotic coronary artery calcific lesion. No pericardial effusion. Thora cic aorta is normal in caliber. Enlargement of the central pulmonary arteries consistent with pulmona ry arterial hypertension. Calcified right hilar lymph nodes consistent with old granulomatous disease . Subcentimeter focus of moderate increased uptake along the mid esophagus just below level of the ca isaias with maximal SUV of 7.4. It is unclear whether this is associated with the esophagus which appea rs normal at this location or an abutting approximately 9 x 4 mm lymph node situated between the esop hagus and the left mainstem bronchus and bronchus. Significant decrease in degree of FDG uptake assoc iated with a 10 x 7 mm left axillary lymph node located along side a surgical clip with maximal SUV o f 2.1, previously 4.0 which could represent either a reactive lymph node or response to treatment of a metastatic lymph node. No pathologically enlarged or other abnormal FDG avid lymph nodes. Abdomen/pelvis/proximal thighs: Physiologic renal accumulation and excretion of FDG activity in the kidneys, bladder and along portio ns of ureters. Photopenic defect associated with a 3.8 cm left renal cyst. Normal degree and heteroge nous pattern of increased uptake throughout the liver without radiologic correlate or dominant FDG av id lesion. Gallbladder is not visualized and likely surgically absent. The pancreas and bilateral adr enal glands are normal. 1.7 cm hypodense photopenic lesion in the spleen most
[2022-10-13 09:27] LABS: Glucose Point of Care 117 mg/dl (65-105)
== END 2022-10-13 08:50 | disposition home or self-care (01) ==
PROVIDERS: PCP Family Medicine; Visit Provider Internal Medicine Hematology & Oncology
DX: C50.812 Malignant neoplasm of overlapping sites of left female breast (principal); R91.8 Other nonspecific abnormal finding of lung field
CPT/HCPCS: 78815; A9552

== ENCOUNTER 2022-11-09 08:19 | Outpatient (CLI) | payer MEDICARE, OTHER, SELFPAY ==
[2022-11-09] VITALS (8 sets, daily range): PULSE 76–121; O2SAT 86–91
--- NOTE | 2022-11-09 09:16 | HOMEO2EVAL ---
Evaluation was performed at [facility] Home Oxygen Evaluation RC: Home Oxygen (O2) Evaluation Start: 11/09/22 09:12 Freq: Status: Active Protocol: RPE Activity Type Activity Date Activity User E-sign Co-sign Detail Recorded Client Recorded Date Recorded By Document 11/09/22 08:10 [email or web address] [email or web address] 11/09/22 09:16 DJO Document 11/09/22 08:15 [email or web address] [email or web address] 11/09/22 09:16 DJO Document 11/09/22 08:20 [email or web address] [email or web address] 11/09/22 09:16 DJO Document 11/09/22 08:25 [email or web address] [email or web address] 11/09/22 09:16 DJO Document 11/09/22 08:30 [email or web address] [email or web address] 11/09/22 09:16 DJO Document 11/09/22 08:35 [email or web address] [email or web address] 11/09/22 09:16 DJO Document 11/09/22 08:40 [email or web address] [email or web address] 11/09/22 09:16 DJO Document 11/09/22 08:55 [email or web address] [email or web address] 11/09/22 09:16 DJO 11/09/22 11/09/22 11/09/22 08:10 08:15 08:20 Home O2 Evaluation [Oxygen] -Test Phase Resting Resting Resting -Oxygen Delivery Room Air Nasal Cannula Nasal Cannula -Oxygen Flow Rate (L/min) 1 2 [Pulse Oximetry] -Pulse Oximetry (90-100 %) 86 L 87 L 88 L [Pulse Rate] -Pulse Rate (60-100 beats/min) 79 77 80 [Evaluation] -Activity Tolerance [Charges] -Treatment Charges O2 Evaluation - Outpatient 11/09/22 11/09/22 11/09/22 08:25 08:30 08:35 Home O2 Evaluation [Oxygen] -Test Phase Resting Exercise Exercise -Oxygen Delivery Nasal Cannula Nasal Cannula Nasal Cannula -Oxygen Flow Rate (L/min) 3 3 4 [Pulse Oximetry] -Pulse Oximetry (90-100 %) 91 86 L 88 L [Pulse Rate] -Pulse Rate (60-100 beats/min) 76 116 H 120 H [Evaluation] -Activity Tolerance [Charges] -Treatment Charges 11/09/22 11/09/22 08:40 08:55 Home O2 Evaluation [Oxygen] -Test Phase Exercise Resting -Oxygen Delivery Nasal Cannula Nasal Cannula -Oxygen Flow Rate (L/min) 5 3 [Pulse Oximetry] -Pulse Oximetry (90-100 %) 91 91 [Pulse Rate] -Pulse Rate (60-100 beats/min) 121 H 84 [Evaluation] -Activity Tolerance Good [Charges] -Treatment Charges
== END 2022-11-09 08:20 | disposition home or self-care (01) ==
LOC: ANHPFT 08:21
PROVIDERS: PCP Family Medicine; Visit Provider Nurse Practitioner Family
DX: J96.90 Respiratory failure, unspecified, unspecified whether with hypoxia or hypercapnia (principal)
CPT/HCPCS: 94618

== ENCOUNTER 2022-11-10 01:38 | Day surgery (SDC) | payer MEDICARE, OTHER, SELFPAY ==
[2022-11-09 17:30] VITALS: BMI 29.0
--- NOTE | ~2022-11-10 | BM_ITS ---
EXAMINATION: CCL bone marrow asp w bx diag ORDER COMPLETED DATE: 11/10/2022 10:51 INDICATION: Chronic anemia TECHNIQUE: A time-out was performed to verify the patient's name, date of , and procedure to b e performed. The procedure including the risks and benefits was discussed with the patient. Risks dis cussed included bleeding, infection, nerve injury and allergic reaction. The patient understood the r isks and agreed to proceed. The skin overlying the right posterior iliac spine was prepped and draped in usual sterile fashion. Anesthetic was administered with 1% lidocaine subcutaneously. Moderate co nscious sedation was achieved with 50 mcg fentanyl IV. An 11 gauge needle was inserted into the right ilium with fluoroscopic guidance. Bone marrow was aspirated. An 8 gauge needle was then inserted int o the right ilium with fluoroscopic guidance. A core bone marrow biopsy was obtained. The needle was removed and the entry site was cleaned and dressed. There were no immediate complications. A total o f 4 fluoroscopic images were recorded. Fluoroscopy exposure time was 0.1 minutes. FINDINGS: Real-time fluoroscopy demonstrates the tip of a hemostat for marking overlying the right po sterior iliac spine. IMPRESSION: 1. Successful fluoroscopic guided bone marrow aspiration. 2. Successful fluoroscopic guided bone marrow biopsy. Reviewed, dictated and finalized at location A.
[2022-11-10 07:50] VITALS: BP 107/71; PULSE 73; RESP 16; TEMP 36.6; O2SAT 91
[2022-11-10 08:00] VITALS: BMI 29.0
[2022-11-10 08:01] LABS: Basophils Absolute Auto 0.1 K/mm3 (0.0-0.1); Basophils Percent Auto 0.6 % (0.2-1.2); Eosinophils Absolute Auto 0.4 K/mm3 (0-0.3); Eosinophils Percent Auto 5.2 % (0-4.4); Hematocrit 28.3 % (37.0-47.0); Hemoglobin 8.3 g/dL (12.0-15.0); Immature Granulocyte Absolute 0.02 K/mm3 (0.00-0.031); Immature Granulocyte Percent A 0.3 % (0-0.5); Lymphocytes Absolute Auto 1.03 K/mm3 (0.9-3.2); Mean Corpuscular HGB Conc 29.3 g/dl (32-36); Mean Corpuscular Volume 105.6 fl (80-100); Mean Platelet Volume 10.4 fl (7.4-10.4); Monocytes Absolute Auto 0.6 K/mm3 (0.1-0.6); Monocytes Percent Auto 7.2 % (2.6-8.5); Neutrophils Absolute Auto 5.9 K/mm3 (1.3-6.7); Neutrophils Percent Auto 73.7 % (45.5-73.1); Platelet Count Result 172 k/mm3 (150-375); Red Blood Count 2.68 M/mm3 (4.2-5.4); Red Cell Distribution Width 12.6 % (11.5-14.5); White Blood Count 7.9 K/mm3 (4.5-10.0)
[2022-11-10 08:22] LABS: Prothrombin Time 13.4 Seconds (11.1-14.7)
[2022-11-10 08:25] LABS: Anisocytosis 1+ (NORMAL); Hypochromasia 2+ (NORMAL); Platelet Estimate Adequate (Adequate); Schistocytes None Seen (NORMAL)
--- NOTE | 2022-11-10 09:06 | WPDMODSED ---
Moderate Sedation Note-Pt Data Patient Data Diagnosis: anemia Present Complaint: anemia Procedure to be performed/Plan: bone marrow biopsy Allergies Allergy/AdvReac Type Severity Reaction Status Date / Time bupropion [From Wellbutrin] Allergy Intermediate Rash Verified 11/10/22 07:49 adhesive tape Allergy Unknown BLISTERS Verified 11/10/22 07:49 Bleach (Sodium Hypochlorite) Allergy Unknown Itching Verified 11/10/22 07:49 benzocaine AdvReac Unknown Unknown Verified 11/10/22 07:49 [From Tigan (with benzocaine)] trimethobenzamide AdvReac Unknown N/V Verified 11/10/22 07:49 nickel AdvReac Itching Verified 11/10/22 07:49 Home Medications Medication Instructions Recorded Confirmed Type aspirin 81 mg tablet,delayed 81 mg PO DAILY 01/03/19 11/09/22 History release (Ian Low Dose Aspirin) mvctxxpe-szwqwux-kota-lutein tablet 1 tablet PO DAILY 06/04/19 11/09/22 History cholecalciferol (vitamin D3) 25 25 mcg PO DAILY 05/12/21 11/09/22 History mcg (1,000 unit) capsule ferrous sulfate 325 mg (65 mg 325 mg PO BID 05/12/21 11/09/22 History iron) tablet (FeroSul) ixekizumab 80 mg/mL subcutaneous 80 mg subcut MONTHLY #1 mL 03/31/22 11/09/22 Rx auto-injector (Taltz Autoinjector) pregabalin 150 mg capsule 150 mg PO DAILY 06/16/22 11/09/22 History quetiapine 25 mg tablet 25 mg PO QHS 06/16/22 11/09/22 History vit C 250 mg-vit E 90 mg-zinc 40 1 tablet PO BID 06/30/22 11/09/22 History mg-copper 1 kb-qtlzod-qezwej capsule (PreserVision AREDS-2) anastrozole 1 mg tablet 1 mg PO DAILY 07/14/22 11/09/22 History paroxetine HCl 40 mg tablet 40 mg PO DAILY #30 tabs 08/06/22 11/09/22 Rx budesonide 160 mcg-glycopyr 9 2 inh inhalation QAM AND QPM #10.7 08/08/22 11/09/22 Rx mcg-formot 4.8 mcg/actuation HFA grams inhaler (Breztri Aerosphere) folic acid 1 mg tablet 1 mg PO DAILY #90 tabs 08/23/22 11/09/22 Rx tretinoin 0.1 % topical cream 1 applic topical QHS #135 grams 09/16/22 11/09/22 Rx (Retin-A) leflunomide 20 mg tablet 20 mg PO DAILY #90 tabs 10/12/22 11/09/22 Rx ipratropium 0.5 mg-albuterol 3 mg 3 ml inhalation BID 11/09/22 11/09/22 History (2.5 mg base)/3 mL nebulization soln lisinopril 10 mg tablet 10 mg PO DAILY 11/09/22 11/09/22 History sodium chloride 0.65 % nasal spray 1 spray intranasal Q12HR PRN 11/09/22 11/09/22 History aerosol (Saline Mist) Congestion Sedation/Anesthesia: No previous sedation/anesthesia problems (including family history). [facility] Past Medical History Medical History Anxiety Arthritis Breast cancer Chronic renal insufficiency, stage III (moderate) Colon polyp COPD (chronic obstructive pulmonary disease) Dependence on continuous supplemental oxygen Encounter for medication management GERD (gastroesophageal reflux disease) Irritable bowel disease Lung cancer Neuropathy Other specified counseling Pneumonia Psoriatic arthritis PVD (peripheral vascular disease) Tobacco abuse Surgical History Surgical History H/O cataract extraction History of appendectomy History of carpal tunnel release History of knee replacement History of liver biopsy History of lung surgery History of tonsillectomy Hx of cholecystectomy S/P lumpectomy of breast Family History Family History Mother Diabetes mellitus Family history of lung cancer Family history of malignant neoplasm of uterus Family history of psoriasis Family history of malignant neoplasm Sibling Diabetes mellitus Father Family history of chronic obstructive pulmonary disease Family history of lung cancer Hypertension Family history of cardiovascular disease Grandparent Family history of malignant neoplasm of uterus Family history of coronary artery disease Social History Social History (Reviewed 10/05/22 @ 09:35 by Olga Anders
[2022-11-10 09:45] VITALS: BP 121/63; PULSE 93; RESP 16; O2SAT 93
[2022-11-10 10:00] VITALS: BP 138/68; PULSE 80; RESP 17; O2SAT 97
[2022-11-10 10:15] VITALS: BP 130/64; PULSE 85; RESP 19; O2SAT 97
[2022-11-10 10:30] VITALS: BP 121/67; PULSE 96; RESP 17; O2SAT 96
[2022-11-10 10:46] VITALS: BP 107/67; PULSE 95; RESP 18; O2SAT 95
== END 2022-11-10 10:51 | disposition home or self-care (01) ==
PROVIDERS: PCP Family Medicine; Referring Provider Internal Medicine Hematology & Oncology; Visit Provider Radiology Diagnostic Radiology
DX: D53.9 Nutritional anemia, unspecified (principal); N18.30 Chronic kidney disease, stage 3 unspecified; J44.9 Chronic obstructive pulmonary disease, unspecified; K21.9 Gastro-esophageal reflux disease without esophagitis; F41.9 Anxiety disorder, unspecified; Z99.81 Dependence on supplemental oxygen; G62.9 Polyneuropathy, unspecified; L40.50 Arthropathic psoriasis, unspecified; I73.9 Peripheral vascular disease, unspecified; Z85.3 Personal history of malignant neoplasm of breast; Z87.891 Personal history of nicotine dependence; Z79.82 Long term (current) use of aspirin; Z79.620 Long term (current) use of immunosuppressive biologic; Z79.811 Long term (current) use of aromatase inhibitors; Z79.51 Long term (current) use of inhaled steroids
CPT/HCPCS: 36415; 38222; 85025; 85610; 88184; 88185; 88305; 88311; 88313; 94618; J1642; J2250; J3010; J7040

== ENCOUNTER 2022-12-21 15:19 | Outpatient (CLI) | payer MEDICARE, OTHER, SELFPAY ==
[2022-12-21 15:43] LABS: Hematocrit 31.4 % (37.0-47.0); Hemoglobin 9.6 g/dL (12.0-15.0); Mean Corpuscular HGB Conc 30.6 g/dl (32-36); Mean Corpuscular Volume 98.1 fl (80-100); Mean Platelet Volume 9.4 fl (7.4-10.4); Platelet Count Result 205 k/mm3 (150-375); Red Cell Distribution Width 12.9 % (11.5-14.5); White Blood Count 7.4 K/mm3 (4.5-10.0)
[2022-12-21 16:55] LABS: Iron 103 ug/dL (37-170)
[2022-12-21 17:01] LABS: Anion Gap 1 mmol/L (8-16); Blood Urea Nitrogen 23 mg/dL (7-17); Calcium 10.3 mg/dL (8.4-10.2); Carbon Dioxide 36 mmol/L (22-30); Chloride 102 mmol/L (98-107); Estimated Glomerular Filt Rate 48; Glucose 95 mg/dL (65-110); Potassium 4.3 mmol/L (3.4-5.0); Sodium 139 mmol/L (137-145)
[2022-12-21 17:04] LABS: Percent Iron Saturation 33 % (20-50)
[2022-12-26 08:52] LABS: CA 15-3 13 U/mL (<32)
[2022-12-27 10:28] LABS: Soluble Transferrin Receptor 2.08 mg/L (0.76-1.76)
== END 2022-12-21 15:20 | disposition home or self-care (01) ==
LOC: ANHLAB 15:23
PROVIDERS: PCP Family Medicine; Visit Provider Internal Medicine Hematology & Oncology
DX: D64.9 Anemia, unspecified (principal); C50.812 Malignant neoplasm of overlapping sites of left female breast; Z17.0 Estrogen receptor positive status [ER+]
CPT/HCPCS: 36415; 80048; 82607; 82728; 83540; 83550; 84238; 85027; 86300

== ENCOUNTER 2023-01-18 09:40 | Outpatient (CLI) | payer MEDICARE, OTHER, SELFPAY ==
--- NOTE | ~2023-01-18 | CT_ITS ---
Clinical Indication: Chest pain, lung cancer CT Scan of the Chest with Contrast: Technique: Contiguous sections were acquired throughout the chest after intravenous administration of 75 cc of Omnipaque 350. Dose reduction technique was used on this scan by utilizing automated exposu re control and iterative reconstruction technique. The dose-length product (DLP) was 200.60 mGy-cm. COMPARISON: 06/22/2022 Findings: There is no evidence of any significant mediastinal, hilar or axillary lymphadenopathy. There is no f illing defect in the pulmonary arterial tree to suggest pulmonary embolus. There is no evidence of ao rtic dissection or aneurysm. There is no evidence of pleural or pericardial effusion. There is linear scarring at the right upper lobe and lingula. Nodularity in the right upper lobe seen on prior exam is resolved. Images through the upper abdomen reveal stable hypodense splenic lesion. Stable rib fracture deformit ies in the anterior left third and fourth ribs. Impression: Postoperative changes the right lung. Previously noted right upper lobe pulmonary nodule is resolved/ no longer present. Stable left third and fourth rib fractures. Stable hypodense splenic lesion, indeterminate. Reviewed, dictated and finalized at location . [facility] Impression: Postoperative changes the right lung. Previously noted right upper lobe pulmona ry nodule is resolved/no longer present. Stable left third and fourth rib fractures. Stable hypodense splenic lesion, indeterminate.
== END 2023-01-18 09:41 | disposition home or self-care (01) ==
PROVIDERS: PCP Family Medicine; Visit Provider Internal Medicine Hematology & Oncology
DX: C34.92 Malignant neoplasm of unspecified part of left bronchus or lung (principal)
CPT/HCPCS: 36415; 71260; 80048; 86300; Q9967

== ENCOUNTER 2023-05-29 06:45 | Outpatient (CLI) | payer MEDICARE, OTHER, SELFPAY ==
--- NOTE | ~2023-05-29 | CT_ITS ---
Clinical Indication: Lung cancer CT Scan of the Chest with Contrast: Technique: Contiguous sections were acquired throughout the chest after intravenous administration of 75 cc of Omnipaque 350. Dose reduction technique was used on this scan by utilizing automated exposu re control and iterative reconstruction technique. The dose-length product (DLP) was 375.55 mGy-cm. COMPARISON: 01/18/2023 Findings: There is no evidence of any significant mediastinal, hilar or axillary lymphadenopathy. There is no f illing defect in the pulmonary arterial tree to suggest pulmonary embolus. There is no evidence of ao rtic dissection or aneurysm. There is no evidence of pleural or pericardial effusion. There is an irregular 8 mm right apical pulmonary nodule with possible focal central cavitation (axia l image 31). There is a 1.1 cm irregular nodule in the right upper lobe (axial image 37). There are p robable chronic scarring or postradiation change in the peripheral left upper lobe/lingula. There is mild emphysema. Images through the upper abdomen reveal no abnormalities. Impression: 11 mm and 8 mm irregular right upper lobe pulmonary nodules, as detailed above. Diagnostic considerat ions include recurrent metastatic disease versus infectious/inflammatory process. Given relatively sm all size, recommend short-term follow-up CT in 1-3 months after appropriate interval therapy. Underlying mild emphysema. Reviewed, dictated and finalized at [facility]. Impression: 11 mm and 8 mm irregular right upper lobe pulmonary nodules, as detailed above. Diagnostic considerations include recurrent metastatic disease versus infectio us/inflammatory process. Given relatively small size, recommend short-term foll ow-up CT in 1-3 months after appropriate interval therapy. Underlying mild emphysema.
[2023-05-29 07:26] LABS: Estimated Glomerular Filt Rate 37
== END 2023-05-29 06:46 | disposition home or self-care (01) ==
PROVIDERS: PCP Family Medicine; Visit Provider Internal Medicine Hematology & Oncology
DX: C34.92 Malignant neoplasm of unspecified part of left bronchus or lung (principal); J43.9 Emphysema, unspecified; R91.8 Other nonspecific abnormal finding of lung field
CPT/HCPCS: 71260; Q9967

== ENCOUNTER 2023-08-11 11:18 | Outpatient (CLI) | payer MEDICARE, OTHER, SELFPAY ==
[2023-08-11 15:57] LABS: Alanine Aminotransferase 17 U/L (6-35); Albumin Level 3.9 g/dL (3.5-5.1); Alkaline Phosphatase 107 U/L (38-126); Anion Gap 1 mmol/L (4-12); Aspartate Amino Transferase 24 U/L (14-36); Bilirubin,Total 0.2 mg/dL (0.2-1.3); Blood Urea Nitrogen 22 mg/dL (7-17); Calcium 10.5 mg/dL (8.4-10.2); Carbon Dioxide 37 mmol/L (22-30); Chloride 103 mmol/L (98-107); Estimated Glomerular Filt Rate 48; Glucose 94 mg/dL (65-110); Magnesium 2.2 mg/dL (1.6-2.3); Potassium 4.3 mmol/L (3.4-5.0); Sodium 141 mmol/L (137-145)
== END 2023-08-11 11:19 | disposition home or self-care (01) ==
LOC: ANHLAB 11:21
PROVIDERS: PCP Family Medicine; Visit Provider Internal Medicine Hematology & Oncology
DX: N18.30 Chronic kidney disease, stage 3 unspecified (principal); R25.2 Cramp and spasm; R53.83 Other fatigue; G25.2 Other specified forms of tremor
CPT/HCPCS: 36415; 80053; 83735; 84443

== ENCOUNTER 2023-08-14 08:22 | Outpatient (CLI) | payer MEDICARE, OTHER, SELFPAY ==
--- NOTE | ~2023-08-14 | CT_ITS ---
Clinical Indication: Lung cancer CT Scan of the Chest with Contrast: Technique: Contiguous sections were acquired throughout the chest after intravenous administration of 75 cc of Omnipaque 350. Dose reduction technique was used on this scan by utilizing automated exposu re control and iterative reconstruction technique. The dose-length product (DLP) was 244.71 mGy-cm. COMPARISON: 05/29/2023 Findings: There is no evidence of any significant mediastinal, hilar or axillary lymphadenopathy. There is no f illing defect in the pulmonary arterial tree to suggest pulmonary embolus. There is no evidence of ao rtic dissection or aneurysm. There is no evidence of pleural or pericardial effusion. Right upper lobe spiculated pulmonary nodules increased from prior exam, now measuring 1.5 cm in diam eter. Additional right upper lobe pulmonary nodule, spiculated, is also increase in size, now measuri ng 1.6 cm in diameter (axial image 34). Stable probable peripheral scarring at the left upper lobe/li ngula. There is focal atelectatic change or scarring at the left lung base posteriorly. Images through the upper abdomen reveal stable splenic cyst. Impression: 2 spiculated right upper lobe pulmonary nodules are present, increased in size from prior exam, now m easuring 1.5 cm and 1.6 cm respectively. These are consistent with metastatic/neoplastic lesions. Reviewed, dictated and finalized at location M. Impression: 2 spiculated right upper lobe pulmonary nodules are present, increased in size from prior exam, now measuring 1.5 cm and 1.6 cm respectively. These are consis tent with metastatic/neoplastic lesions.
[2023-08-14 10:05] LABS: Basophils Absolute Auto 0.1 K/mm3 (0.0-0.1); Basophils Percent Auto 0.8 % (0.2-1.2); Eosinophils Absolute Auto 0.2 K/mm3 (0-0.3); Eosinophils Percent Auto 2.8 % (0-4.4); Hemoglobin 8.2 g/dL (12.0-15.0); Immature Granulocyte Absolute 0.04 K/mm3 (0.00-0.031); Immature Granulocyte Percent A 0.5 % (0-0.5); Lymphocytes Absolute Auto 0.68 K/mm3 (0.9-3.2); Lymphocytes Percent Auto 9.1 % (18.3-44.2); Mean Corpuscular HGB Conc 29.3 g/dl (32-36); Mean Corpuscular Hemoglobin 31.1 pg (26-34); Mean Corpuscular Volume 106.1 fl (80-100); Mean Platelet Volume 10.3 fl (7.4-10.4); Monocytes Absolute Auto 0.5 K/mm3 (0.1-0.6); Neutrophils Absolute Auto 5.9 K/mm3 (1.3-6.7); Neutrophils Percent Auto 79.8 % (45.5-73.1); Nucleated Red Blood Cells Perc 0.3 % (0.0-0.2); Platelet Count Result 205 k/mm3 (150-375); Red Blood Count 2.64 M/mm3 (4.2-5.4); Red Cell Distribution Width 14.4 % (11.5-14.5); White Blood Count 7.4 K/mm3 (4.5-10.0)
[2023-08-14 10:14] LABS: Alanine Aminotransferase 15 U/L (6-35); Albumin Level 3.5 g/dL (3.5-5.1); Alkaline Phosphatase 98 U/L (38-126); Anion Gap 2 mmol/L (4-12); Aspartate Amino Transferase 22 U/L (14-36); Bilirubin,Total 0.1 mg/dL (0.2-1.3); Blood Urea Nitrogen 18 mg/dL (7-17); Calcium 9.6 mg/dL (8.4-10.2); Carbon Dioxide 35 mmol/L (22-30); Chloride 103 mmol/L (98-107); Estimated Glomerular Filt Rate 54; Glucose 106 mg/dL (65-110); Potassium 3.8 mmol/L (3.4-5.0); Sodium 140 mmol/L (137-145)
[2023-08-14 10:31] LABS: Platelet Estimate Adequate (Adequate)
[2023-08-14 10:32] LABS: Hypochromasia 1+; Macrocytosis 1+ (NORMAL); Schistocytes None Seen; Stomatocytes 1+
[2023-08-16 11:39] LABS: CA 15-3 10 U/mL (<32)
== END 2023-08-14 08:23 | disposition home or self-care (01) ==
PROVIDERS: PCP Family Medicine; Visit Provider Internal Medicine Hematology & Oncology
DX: C50.812 Malignant neoplasm of overlapping sites of left female breast (principal); C34.92 Malignant neoplasm of unspecified part of left bronchus or lung; Z17.0 Estrogen receptor positive status [ER+]; R91.8 Other nonspecific abnormal finding of lung field
CPT/HCPCS: 36415; 71260; 80053; 85025; 86300; Q9967

== ENCOUNTER 2023-09-07 08:53 | Outpatient (CLI) | payer MEDICARE, OTHER, SELFPAY ==
--- NOTE | ~2023-09-07 | PE_ITS ---
EXAMINATION: PET skull to mid thigh DATE: 09/07/2023 11:51 INDICATION: Non-small cell left lung cancer TECHNIQUE: Blood glucose level was 105 mg/dL. 8.397 mCi of 18-fluorodeoxyglucose (18-FDG) was adminis tered i.v. Low dose computed tomography (CT) images were acquired from the base of the brain to the p roximal thighs for attenuation correction and anatomic localization. Positron emission tomography (PE T) images were acquired in the same distribution beginning 48 minutes after injection. Images includi ng fused PET/CT images were reconstructed in axial, coronal, and sagittal planes. Automated exposure control technique was employed. The dose-length product was 1021.94mGy-cm. COMPARISON: None FINDINGS: Head/neck: There is symmetric increased activity in the oral cavity, pharyngeal tonsils, submandibular glands, l aryngeal muscles and ocular muscles without CT correlate, likely physiologic. No pathologically enlar ged cervical lymphadenopathy or suspicious foci of increased FDG uptake in the visualized head or nec k. Chest: Postoperative change of prior partial right upper lobectomy with suture line along the posterior righ t upper lobe. There are a couple new FDG avid nodules in the right upper lobe. The more cephalad john ures 1.7 x 1.2 cm with maximal SUV of 12.8 and the more caudal measures 17 x 13 with maximal SUV of 9 .8. Stable appearance of chronic mild atelectasis/scarring at the lingula without abnormal FDG uptake . Additional likely atelectasis at the posterior sulcus of the left lower lobe without abnormal FDG u ptake. There is a region of increased FDG uptake at the posterior sulcus of the right lower lobe with increased FDG uptake with maximal SUV of 5.3 peripherally within linear bands of atelectasis and sub tle groundglass and tree-in-bud opacities at this location on the current and recent prior CT which i s more likely infectious/inflammatory in etiology. Cardiomegaly. Atherosclerotic coronary artery calc ification is. No pericardial effusion. Enlargement of the central pulmonary arteries consistent with pulmonary arterial hypertension. Thoracic aorta is normal in caliber. Calcified mediastinal lymph nod es consistent with old granulomatous disease. No pathologically enlarged or FDG avid thoracic lymphad enopathy. There is only mild uptake associated with chronic nonunited fractures of the anterior left third and fourth ribs. Severe thoracic spondylosis. No suspicious lytic, blastic or abnormally FDG av id bone lesions. Abdomen/pelvis/proximal thighs: Physiologic renal accumulation and excretion of FDG activity in the kidneys, bladder and along portio ns of ureters. Photopenic defect associated with a 3.7 cm low-attenuation left renal cyst. There is a lso a photopenic defect associated with a 2.8 cm low-attenuation splenic cyst. Normal degree and hete rogenous pattern of increased uptake throughout the liver without radiologic correlate or dominant FD G avid lesion. Gallbladder is not visualized and likely surgically absent. Pancreas and bilateral adr enal glands are normal. Mild uptake scattered throughout the bowels without radiologic correlate, als o likely physiologic. Scattered colonic diverticulosis without adjacent inflammatory change to sugges t diverticulitis. No pathologically enlarged or abnormally FDG avid abdominal or pelvic lymphadenopat hy.. FDG uptake with maximal SUV of 13.8 associated with a 2.9 x 1.7 cm mixed lytic and sclerotic les ion centered at the left pedicle of T12. No other suspicious lytic, blastic or FDG avid bone lesions. IMPRESSION: 1. Increased uptake associated with a couple 1.7 cm nodules in the right upper lobe and of a mixed ly tic and sclerotic lesion at the left pedicle of T12 suspicious for metastatic disease. Reviewed, dictated and finalized at location A. Electronically signed by Joe Childers M.D. on
[2023-09-07 09:45] LABS: Glucose Point of Care 108 mg/dl (65-105)
[2023-09-07 09:45] LABS: Glucose Point of Care 105 mg/dl (65-105)
== END 2023-09-07 08:54 | disposition home or self-care (01) ==
PROVIDERS: PCP Family Medicine; Visit Provider Internal Medicine Hematology & Oncology
DX: C34.92 Malignant neoplasm of unspecified part of left bronchus or lung (principal); C77.3 Secondary and unspecified malignant neoplasm of axilla and upper limb lymph nodes; R91.8 Other nonspecific abnormal finding of lung field
CPT/HCPCS: 78815; A9552

== ENCOUNTER 2024-01-16 07:56 | Outpatient (CLI) | payer MEDICARE, OTHER, SELFPAY ==
--- NOTE | ~2024-01-16 | CT_ITS ---
EXAMINATION: CT chest abdomen pelvis w con DATE: 01/16/2024 08:28 INDICATION: Malignant neoplasm of left lung. TECHNIQUE: Computed tomography (CT) of the chest, abdomen, and pelvis was performed with 100 mL Omnip aque 350 intravenous contrast. Automated exposure control and iterative reconstruction technique were employed. The dose-length product was 710.75 mGy-cm. COMPARISON: CT chest 08/14/2023, 04/23/21, 01/18/23, 05/29/23 FINDINGS: CHEST CT: There is mild emphysema. There is mild atelectasis bilaterally. There is a 1.3 cm nodule with eccentr ic calcifications in right lung upper lobe without change. Calcified right hilar and mediastinal lymp h nodes are consistent with old granulomatous disease. There is a stable 10 mm nodule in right upper lobe. There are changes of partial right upper lobectomy. There is a chronic 3 mm nodule in right low er lobe, likely benign. There is a chronic 3 mm nodule left upper lobe, likely benign. There is perip heral radiation fibrosis in lingula. No pleural effusion. Cardiomegaly is noted. There are coronary a rtery calcifications. No pericardial effusion. There are old fractures of left third and fourth ribs. There is severe cervical and thoracic spondylosis. There is mild chronic anterior wedging of multipl e thoracic vertebral bodies. Thoracic dextroscoliosis is noted. ABDOMEN/PELVIS CT: The liver is normal. The gallbladder is absent. There is a 3.8 cm cyst in the spleen. The pancreas an d adrenal glands are normal. There are cysts in the kidneys measuring up to 3.8 cm on the left. There is diverticulosis of the colon without evidence of diverticulitis. There are no dilated loops of bow el. The appendix is not visualized. There are no pathologically enlarged lymph nodes. There is no katerina e intraperitoneal fluid. There is calcified atherosclerosis of the aorta and many of the other arteri es. There is lumbar levoscoliosis and severe spondylosis. There are mixed lytic and sclerotic lesion in L1. IMPRESSION: 1. Two stable right upper lobe pulmonary nodules status post radiation therapy suspicious for maligna ncy. 2. Stable mixed lytic and sclerotic lesion in L1, consistent with metastatic disease. Reviewed, dictated and finalized at location A. EDICAL ENGINEERING SUPERVISOR IMPRESSION: 1. Two stable right upper lobe pulmonary nodules status post radiation therapy suspicious for malignancy. 2. Stable mixed lytic and sclerotic lesion in L1, consistent with metastatic di sease.
[2024-01-16 08:19] LABS: Estimated Glomerular Filt Rate 44
== END 2024-01-16 07:57 | disposition home or self-care (01) ==
LOC: ANHIMG 08:01
PROVIDERS: PCP Family Medicine; Visit Provider Radiology Radiation Oncology
DX: C34.90 Malignant neoplasm of unspecified part of unspecified bronchus or lung (principal); R91.8 Other nonspecific abnormal finding of lung field; S34.111A Complete lesion of L1 level of lumbar spinal cord, initial encounter; X58.XXXA Exposure to other specified factors, initial encounter; Z92.3 Personal history of irradiation
CPT/HCPCS: 71260; 74177; Q9967

== ENCOUNTER 2024-03-04 06:48 | Outpatient (CLI) | payer MEDICARE, OTHER, SELFPAY ==
--- NOTE | ~2024-03-04 | CT_ITS ---
Clinical Indication: Breast cancer CT Scan of the Chest with Contrast: Technique: Contiguous sections were acquired throughout the chest after intravenous administration of 75 cc of Omnipaque 350. Dose reduction technique was used on this scan by utilizing automated exposu re control and iterative reconstruction technique. The dose-length product (DLP) was 180.05 mGy-cm. COMPARISON: 01/16/2024 Findings: There is no evidence of any significant mediastinal, hilar or axillary lymphadenopathy. There is no f illing defect in the pulmonary arterial tree to suggest pulmonary embolus. There is no evidence of ao rtic dissection or aneurysm. There is no evidence of pleural or pericardial effusion. Stable irregular right upper lobe pulmonary nodule (axial images 25-29). Stable irregular consolidati on within the lingula, likely postradiation change or other chronic scarring or atelectasis. There is focal chronic scarring or atelectasis in the medial left lower lobe. Images through the upper abdomen reveal stable splenic cystic mass. Stable left renal cyst noted. Ski n thickening left breast probably represents posttreatment/post radiation change. Stable mixed lytic/sclerotic lesion in L1, extending into the left pedicle. Impression: Stable irregular right upper lobe pulmonary nodule, which could reflect treated disease. Active malig papito not completely excluded. Posttreatment changes in the left breast and stable additional postradiation changes or scarring at t he lingula. Stable mixed lytic/sclerotic lesion in L1. Reviewed, dictated and finalized at [facility]. ION COORDINATOR Impression: Stable irregular right upper lobe pulmonary nodule, which could reflect treated disease. Active malignancy not completely excluded. Posttreatment changes in the left breast and stable additional postradiation ch anges or scarring at the lingula. Stable mixed lytic/sclerotic lesion in L1.
[2024-03-04 07:20] LABS: Estimated Glomerular Filt Rate 40
--- OUTSIDE RECORDS SUMMARY | 2024-03-07 11:27 | XMS_ITS | Encounter Summary ---
Author Organization [facility] Address [address] [place] [address] Care Team Providers Care In House Counsel Name Role Phone Bernadette Cedillo MD Primary Care Provider [phone] Encounter Details Date Type Department Care Team (Late st Contact Info) Description 11/10/2022 Lab Requisition [facility] - Pathology Lab [address] [place] [address] Rocco Roblero MD [address] [id number] Anemia, unspecified Social History Tobacco Use Types Packs/Day Years Used Date Smoking Tobacco: Never Assessed Sex and Gender Information Value Date Recorded Sex Assigned at Not on file Gender Identity Not on file Sexual Orientation Not on file documented as of this encounter Plan of Treatment Not on file documented as of this encounter Procedures Procedure Name Priority Date/Time Associated Diagnosis Comments FLOW CYTOMETRY BONE MARROW Routine 11/10/2022 9:00 AM CDT Anemia, unspecified documented in this encounter Results * FLOW CYTOMETRY BONE MARROW (11/10/2022 9:00 AM CDT) Case Report Flow Cytometry ?Case: [id number] ? Authorizing Provider: ??Rocco Roblero MD ?Collected: ? 11/10/2022 09:00 AM ? Ordering Location: ? [facility] Path[facility] Lab ? Received: ?11/10/2022 11:47 AM ? Pathologist: ? Flaco Dejesus MD ? Specimen: ?Bone Marrow ? 11/10/2022 1:57 PM CDT [facility] Final Diagnosis Bone marrow, flow cytometric immunophenotypic analysis: - no clonal B-cell population or increase in blasts - small population of myeloid blasts (3% of events) and of hematogones (2%) identified - see interpretation 11/10/2022 1:57 PM [facility] PATH[facility] Flow Cytometry Interpretation Viability: 86% Barrett: lymphocytes 10%, dimCD45 12%, granulocytes 72%, monocytes 5%. Lymphocytes: - B-cells (16% of lymphocyte gate): polytypic by [place]:lambda light chain expression (K:L 2:1) - T-cells (94%): no immunophenotypic aberrancy detected Dim CD45 gate: - Blasts: detected, 3% of all events, express CD34, CD13, CD33 with strategic communications manager pattern of maturation - Hematogones: detected, 2% of all events, CD19 and CD10 A bone marrow aspirate smear prepared from the flow cytometry specimen has been reviewed for billing and quality technician purposes. 11/10/2022 1:57 PM [facility] Flow Cytometry Results Differential Result Comment Flow Cell Count /uL 84,000 Total Viability % 86.0 Lymphocytes % 10 Dim CD45 Region % 12 Monocytes % 5 Granulocytes % 72 11/10/2022 1:57 PM CDT [facility] Reason for test Anemia, unspecified 285.9 11/10/2022 1:57 PM CDT [facility] Client Specimen ID # [id number] 11/10/2022 1:57 PM CDT [facility] Number of markers 10 were performed. A-2 Flow CD10 A-3 Flow CD13 A-5 Flow CD20 A-1 Flow CD5 A-4 Flow CD19 A-6 Flow CD33 A-7 Flow CD34 A-8 Flow CD45 A-9 [place]+CD19+ A-10 Lambda+CD19+ 11/10/2022 1:57 PM CDT [facility] Pathologist Location at [facility] 11/10/2022 1:57 PM CDT [facility] Disclaimer Test performed at [facility], [address] [place] [address], [facility]. The established laboratory minimum viability is 70%. Values below the minimum may result in the failure to find an abnormal population of cells. This test was developed and its performance characteristics determined by the Flow Cytometry Laboratory. It has not been cleared by the [place] Food and Drug Administration (FDA). The FDA has determined that such clearance or approval is not necessary. This test is used for clinical purposes. It should not be regarded as investigational or for research. This laboratory is regulated under the Clinical Laboratory Improvement Amendments of 1998 (CLIA) as a qualified to perform high complexity clinical testing. 11/10/2022 1:57 PM CDT [facility] Embedded Images 1:57 PM CDT [facility] Pathology/Cytolo gy BONE MARROW SPECIMEN / Unknown 11/10/2022 9:00 AM CDT 11/10/2022 11:47 AM CDT Rocco Roblero MD LAB - PATHOLOGY/CYTO LOGY ORDERABLES [facility] [address] [place] [address]. [address] [phone] documented in this encounter Visit Diagnoses Diagnosis Anemia, unspecified documented in this encounter Care Teams In House Counsel Relationship Specialty Start Date End Date Bernadette Cedillo MD [address] [place] [address] PCP - General 06/22/21 documented as of this encounter
--- OUTSIDE RECORDS SUMMARY | 2024-03-07 11:27 | XMS_ITS | Encounter Summary ---
Author Organization [facility] Address [address] [place] [address] Care Team Providers Care Motor Scooter Mechanic Name Role Phone Bernadette Cedillo MD Primary Care Provider [phone] Encounter Details Date Type Department Care Team (Late st Contact Info) Description 11/14/2022 Lab Requisition [facility] - Pathology Lab [address] [place] [address] Rocco Roblero MD [address] [facility] [address] [place] [id number] Illness, unspecified Social History Tobacco Use Types Packs/Day Years Used Date Smoking Tobacco: Never Assessed Sex and Gender Information Value Date Recorded Sex Assigned at Not on file Gender Identity Not on file Sexual Orientation Not on file documented as of this encounter Plan of Treatment Not on file documented as of this encounter Procedures Procedure Name Priority Date/Time Associated Diagnosis Comments BONE MARROW BIOPSY (STL) Routine 11/10/2022 9:00 AM CDT Illness, unspecified documented in this encounter Results * BONE MARROW BIOPSY (STL) (11/10/2022 9:00 AM CDT) Case Report Bone Marrow Patholog y Report ?Case: [id number] ? Authorizing Provider: ??Rocco Roblero MD ?Collected: ? 11/10/2022 09:00 AM ? Ordering Location: ? [facility] Lab ? Received: ?11/14/2022 09:45 AM ? Pathologist: ? Rona Smith MD ? Specimens: ?? A) - Bone Marrow Clot ? B) - Bone Marrow Core ? 11/14/2022 10:58 AM [facility] Final Diagnosis Bone marrow, aspirate, clot section, and core biopsy: - Normocellular marrow with maturing trilineage hematopoiesis - Decreased storage iron - No evidence of lymphoma or high-grade myeloid neoplasm - See description. Peripheral blood smear: - Macrocytic anemia - See description 11/14/2022 10:58 AM [facility] Comment Overall, the bone marrow specimen is normocellular for age with maturing trilineage hematopoiesis and no evidence of lymphoma, a high-grade myeloid neoplasm, or significant dyspoiesis. Storage iron is decreased. Correlation with clinical findings and relevant cytogenetic/molecular testing is required. 11/14/2022 10:58 AM [facility] Peripheral Smear Description CBC Data: WBC - 7.9, Hgb - 8.3, MCV - 105.6, MCHC - 31, and Platelets - 172. Leukocyte number: normal. Granulocyte morphology: normal. Lymphocyte morphology: normal. Erythrocyte number: decreased. Erythrocyte morphology: macrocytic. Anisopoikilocytosis: mild. Polychromasia: mild. Platelet number: normal. Platelet morphology: normal. 11/14/2022 10:58 AM [facility] Bone Marrow Aspirate Differential count (200 cells): 2% blasts, 67.5% maturing myeloid precursors, 23.5% erythroid progenitors, 1.5% eosinophils, and 5.5% lymphocytes. Specimen quality: adequate. Spicules: present. Trilineage Hematopoiesis: present. Myeloid:Erythroid ratio: 2.9:1. Myeloid Maturation: normal. Erythroid Maturation: normal. Megakaryocyte morphology: normal nuclear lobation. Storage iron (by special stain): focal/decreased. Sideroblastic iron (by special stain): no ring sideroblasts. Control is appropriately reactive. 11/14/2022 10:58 AM [facility] Bone Marrow Core Biopsy and Clot Section Description Specimen quality: The decalcified bone marrow core biopsy is adequate for evaluation. Cellularity: normocellular, ~30%. Trilineage Hematopoiesis: present. Myeloid to Erythroid ratio: normal. Myeloid maturation and localization: normal. Erythroid maturation and localization: normal. Megakaryocyte number: normal. Megakaryocyte distribution: normal. Lymphoid aggregates: absent. Clot section marrow particles: present. Clot section morphology: similar to core biopsy. Clot section iron (by special stain): decreased. 11/14/2022 10:58 AM [facility] Flow Cytometry Summary Concurrent flow cytometry ([id number]) shows no clonal B-cell population or increase in blasts. 11/14/2022 10:58 AM [facility] Clinical History 77 year old woman with chronic anemia. 11/14/2022 10:58 AM [facility] Materials Received Received are 20 slides and 3 blocks labeled [id number] along with a copy of the outside pathology report. The materials originate from [place] [id number]. All original materials are returned to the referring institution, along with a copy of our final report. 11/14/2022 10:58 AM [facility] Pathologist Location at [facility] 11/14/2022 10:58 AM CDT [facility] Disclaimer The performance characteristics of all immunohistochemical and indirect immunofluorescence stains (if any) cited in this report were determined by the Histopathology Laboratory of [facility]. Some of these tests were developed by our own laboratory and have not been cleared or approved by the [place] Food and Drug Administration. The FDA does not require this test to go through premarket FDA review. These tests are used for clinical purposes. They should not be regarded as investigational or for research. This laboratory is certified under the Clinical Laboratory Improvement Amendments (CLIA) as qualified to perform high complexity clinical laboratory testing. This case has been personally reviewed and interpreted by the attending (teaching) pathologist. 11/14/2022 10:58 AM CDT [facility] Embedded Images 11/14/2022 10:58 AM CDT [facility] Pathology/Cytology BONE MARROW SPECIMEN / Unknown 11/10/2022 9:00 AM CDT 11/14/2022 9:45 AM CDT Miscellaneous samples (specimen) BONE MARROW SPECIMEN / Unknown 11/10/2022 9:00 AM CDT 11/14/2022 9:59 AM CDT Rocco Roblero MD LAB - PATHOLOGY/CYTO LOGY ORDERABLES Performing Organization Address City/State/[facility] Co de Phone Number [facility] [address] [phone] documented in this encounter Visit Diagnoses Diagnosis Illness, unspecified documented in this encounter Care Teams Motor Scooter Mechanic Relationship Specialty Start Date End Date Bernadette Cedillo MD [address] [place] [address] PCP - General 06/22/21 documented as of this encounter
--- OUTSIDE RECORDS SUMMARY | 2024-03-07 11:27 | XMS_ITS | Patient Health Summary ---
Author Organization [facility] Address [address] [place] [address] Care Team Providers Care Group Insurance Special Agent Name Role Phone Bernadette Cedillo MD Primary Care Provider [phone] Note from [facility],non-owned Affiliates and Associated Physician Practices is amultiple site organization consisting of ambulatory clinics and hospital sitesin [place] and [place]. This disclosure is being madepursuant to the Care Everywhere program and may not contain all information available regarding this patient. Last updated 17.[facility] Social History Tobacco Use Types Packs/Day Years Used Date Smoking Tobacco: Never Assessed Sex and Gender Information Value Date Recorded Sex Assigned at Not on file Gender Identity Not on file Sexual Orientation Not on file Procedures * BONE MARROW BIOPSY (STL)(Performed 11/10/2022) Performed for Illness, unspecified * FLOW CYTOMETRY BONE MARROW(Performed 11/10/2022) Performed for Anemia, unspecified Results * FLOW CYTOMETRY BONE MARROW (11/10/2022 9:00 AM CDT) Case Report Flow Cytometry ?Case: [id number] ? Authorizing Provider: ??Rocco Roblero MD ?Collected: ? 11/10/2022 09:00 AM ? Ordering Location: ? [facility] ? Received: ?11/10/2022 11:47 AM ? Pathologist: ? Flaco Dejesus MD ? Specimen: ?Bone Marrow ? 11/10/2022 1:57 PM [facility] Final Diagnosis Bone marrow, flow cytometric immunophenotypic analysis: - no clonal B-cell population or increase in blasts - small population of myeloid blasts (3% of events) and of hematogones (2%) identified - see interpretation 11/10/2022 1:57 PM [facility] Flow Cytometry Interpretation Viability: 86% Barrett: lymphocytes 10%, dimCD45 12%, granulocytes 72%, monocytes 5%. Lymphocytes: - B-cells (16% of lymphocyte gate): polytypic by Mcrae-Helena:lambda light chain expression (K:L 2:1) - T-cells (94%): no immunophenotypic aberrancy detected Dim CD45 gate: - Blasts: detected, 3% of all events, express CD34, CD13, CD33 with project development manager pattern of maturation - Hematogones: detected, 2% of all events, CD19 and CD10 A bone marrow aspirate smear prepared from the flow cytometry specimen has been reviewed for quality assurance director purposes. 11/10/2022 1:57 PM [facility] Flow Cytometry Results Differential Result Comment Flow Cell Count /uL 84,000 Total Viability % 86.0 Lymphocytes % 10 Dim CD45 Region % 12 Monocytes % 5 Granulocytes % 72 11/10/2022 1:57 PM [facility] Reason for test Anemia, unspecified 285.9 11/10/2022 1:57 PM CDT [facility] Client Specimen ID # [id number] 11/10/2022 1:57 PM CDT [facility] Number of markers 10 were performed. A-2 Flow CD10 A-3 Flow CD13 A-5 Flow CD20 A-1 Flow CD5 A-4 Flow CD19 A-6 Flow CD33 A-7 Flow CD34 A-8 Flow CD45 A-9 Mcrae-Helena+CD19+ A-10 Lambda+CD19+ 11/10/2022 1:57 PM CDT [facility] Pathologist Location at [facility] 11/10/2022 1:57 PM CDT [facility] Disclaimer Test performed at [facility], [address] [place] [address], [facility]. The established laboratory minimum viability is 70%. [...] complexity clinical testing. 11/10/2022 1:57 PM CDT [facility] Embedded Images 1:57 PM CDT [facility] Pathology/Cytolo gy BONE MARROW SPECIMEN / Unknown 11/10/2022 9:00 AM CDT 11/10/2022 11:47 AM CDT Rocco Roblero MD LAB - PATHOLOGY/CYTO LOGY ORDERABLES [facility] [address] [place] [address]. [place] [address], [facility] [phone] * BONE MARROW BIOPSY (STL) (11/10/2022 9:00 AM CDT) Case Report Bone Marrow Patholog y Report ?Case: [id number] ? Authorizing Provider: ??Rocco Roblero MD ?Collected: ? 11/10/2022 09:00 AM ? Ordering Location: ? [facility] ? Received: ?11/14/2022 09:45 AM ? Pathologist: ? Rona Smith MD ? Specimens: ?? A) - Bone Marrow Clot ? B) - Bone Marrow Core ? 11/14/2022 10:58 AM CDT [facility] Final Diagnosis Bone marrow, aspirate, clot section, and core biopsy: - Normocellular marrow with maturing trilineage hematopoiesis - Decreased storage iron - No evidence of lymphoma or high-grade myeloid neoplasm - See description. Peripheral blood smear: - Macrocytic anemia - See description 11/14/2022 10:58 AM CDT [facility] Comment Overall, the bone marrow specimen is normocellular for age with maturing trilineage hematopoiesis and no evidence of lymphoma, a high-grade myeloid neoplasm, or significant dyspoiesis. Storage iron is decreased. Correlation with clinical findings and relevant cytogenetic/molecular testing is required. 11/14/2022 10:58 AM [facility] Peripheral Smear Description CBC Data: WBC - 7.9, Hgb - 8.3, MCV - 105.6, MCHC - 31, and Platelets - 172. Leukocyte number: normal. Granulocyte morphology: normal. Lymphocyte morphology: normal. Erythrocyte number: decreased. Erythrocyte morphology: macrocytic. Anisopoikilocytosis: mild. Polychromasia: mild. Platelet number: normal. Platelet morphology: normal. 11/14/2022 10:58 AM [facility] Bone Marrow Aspirate Differential [...] Control is appropriately reactive. 11/14/2022 10:58 AM [facility] Bone Marrow Core Biopsy [...] (by special stain): decreased. 11/14/2022 10:58 AM [facility] Flow Cytometry Summary Concurrent flow cytometry ([id number]) shows no clonal B-cell population or increase in blasts. 11/14/2022 10:58 AM [facility] Clinical History 77 year old woman with chronic anemia. 11/14/2022 10:58 AM [facility] Materials Received Received are 20 slides and 3 blocks labeled [id number] along with a copy of the outside pathology report. The materials originate from [address] [place] [address]. All original materials are returned to the referring institution, along with a copy of our final report. 11/14/2022 10:58 AM CDT [facility] Pathologist Location at [facility] 11/14/2022 10:58 AM CDT [facility] Disclaimer The performance characteristics of all immunohistochemical and indirect immunofluorescence stains (if any) cited in this report were determined by the Histopathology Laboratory of [facility]. Some of these tests were developed by [...] attending (teaching) pathologist. 11/14/2022 10:58 AM CDT [facility] Embedded Images 11/14/2022 10:58 AM CDT [facility] Pathology/Cytology BONE MARROW SPECIMEN / Unknown 11/10/2022 9:00 AM CDT 11/14/2022 9:45 AM CDT Miscellaneous samples (specimen) BONE MARROW SPECIMEN / Unknown 11/10/2022 9:00 AM CDT 11/14/2022 9:59 AM CDT Rocco Roblero MD LAB - PATHOLOGY/CYTO LOGY ORDERABLES Performing Organization Address City/State/[facility] Co de Phone Number [facility] [address] [phone] Care Teams Group Insurance Special Agent Relationship Specialty Start Date End Date Bernadette Cedillo MD [address] [place] [address] PCP - General 06/22/21
--- OUTSIDE RECORDS SUMMARY | 2024-03-07 11:27 | XMS_ITS | Referral Summary ---
Author Organization [facility] Address [address] [place] [address] Care Team Providers Care Panelboard Assembler Name Role Phone Bernadette Cedillo MD Primary Care Provider [phone] Source Comments [facility],non-owned Affiliates and Associated Physician Practices is amultiple site organization consisting of ambulatory clinics and hospital sitesin [place], [place], [place] and [place]. This disclosure is being madepursuant to the Care Everywhere program and may not contain all information available regarding this patient. Last updated 17.[facility] [employer] Social History Tobacco Use Types Packs/Day Years Used Date Smoking Tobacco: Never Assessed Sex and Gender Information Value Date Recorded Sex Assigned at Not on file Gender Identity Not on file Sexual Orientation Not on file Plan of Treatment Not on file Care Teams Panelboard Assembler Relationship Specialty Start Date End Date Bernadette Cedillo MD [address] [place] [address] [facility] - General 06/22/21
--- OUTSIDE RECORDS SUMMARY | 2024-03-07 11:27 | XMS_ITS | Encounter Summary ---
Author Organization [facility] Address [address] [place] [address] Care Team Providers Care Cd Manufacturing Supervisor Name Role Phone Bernadette Cedillo MD Primary Care Provider [phone] Encounter Details Date Type Department Care Team (Late st Contact Info) Description 11/14/2022 Lab Requisition [facility] - [facility] [address] [place] [address] Rocco Roblero MD [address] [address] Illness, unspecified Social History Tobacco Use Types Packs/Day Years Used Date Smoking Tobacco: Never Assessed Sex and Gender Information Value Date Recorded Sex Assigned at Not on file Gender Identity Not on file Sexual Orientation Not on file documented as of this encounter Plan of Treatment Not on file documented as of this encounter Visit Diagnoses Diagnosis Illness, unspecified documented in this encounter Care Teams Cd Manufacturing Supervisor Relationship Specialty Start Date End Date Bernadette Cedillo MD [address] [place] [address] PCP - General 06/22/21 documented as of this encounter
--- OUTSIDE RECORDS SUMMARY | 2024-03-07 11:27 | XMS_ITS | Clinical Summary ---
Author Organization [facility] Address [address] [place] [address] Care Team Providers Care Scrap Preparation Supervisor Name Role Phone Bernadette Cedillo MD Primary Care Provider [phone] Source Comments [facility],non-owned Affiliates and Associated Physician Practices is amultiple site organization consisting of ambulatory clinics and hospital sitesin [place], [place], [place] and [place]. This disclosure is being madepursuant to the Care Everywhere program and may not contain all information available regarding this patient. Last updated 17.[facility] Social History Tobacco Use Types Packs/Day Years Used Date Smoking Tobacco: Never Assessed Sex and Gender Information Value Date Recorded Sex Assigned at Not on file Gender Identity Not on file Sexual Orientation Not on file Plan of Treatment Health Maintenance Due Date Last Done Comments BONE DENSITY TESTING 1945 MEDICARE AWV ? 12 MONTHS 1945 HEPATITIS C SCREENING 08/31/1965 DTAP/TDAP/TD VACCINES (1 - Tdap) 09/04/1966 PNEUMOCOCCAL VACCINE 50+ (1 of 1 - PCV) 09/04/1997 ZOSTER VACCINE (1 of 2) 09/04/1997 Respiratory Syncytial Virus (RSV) Vaccine Pt: or over 60 yrs (1 - 1-dose 75+ series) 09/04/2022 COVID-19 VACCINE (1 - 2023-2 5 season) 2023 INFLUENZA VACCINE (#1) 2023 DEPRESSION SCREENING 02/14/2024 HEPATITIS B VACCINE Aged Out No longe r eligible based on patient's age to complete this topic HIB VACCINE Aged Out No longer eligi ble based on patient's age to complete this topic HPV VACCINE Aged Out No longer eligi ble based on patient's age to complete this topic MENINGOCOCCAL (Group B) VACCINE Aged Out No longer eligible based on patient's age to complete this topic MENINGOCOCCAL VACCINE Aged Out No marshall red eligible based on patient's age to complete this topic Care Teams Scrap Preparation Supervisor Relationship Specialty Start Date End Date Bernadette Cedillo MD [address] [place] [address] PCP - General 06/22/21
--- OUTSIDE RECORDS SUMMARY | 2024-03-07 11:27 | XMS_ITS | Referral Summary ---
Author Organization [facility] Address [address] [place] [address] Care Team Providers Care Lithographers Printer Name Role Phone Hernesto Joshi MD Primary Care Provider [phone] Allergies Active Allergy Reactions Criticality Noted Date Comments Adhesive Tape-Silicones Rash,Other (See comments) Reaction: RASH, Reaction: Rash, Bupropion Nausea And Vomiting,Rash High 02/23/2020 Medications aspirin 81 mg enteric coated tablet Take 1 tablet (81 mg total) by mouth daily Active folic acid (FOLVITE) 1 mg tablet Take 1 tablet (1,000 mcg total) by mouth daily 02/23/19 22 Active pregabalin (LYRICA) 150 mg capsule Take 1 capsule (150 mg total) by mouth daily 02/26/19 22 Active leflunomide (ARAVA) 20 mg tablet Take 1 tablet (20 mg total) by mouth daily 02/26/19 22 Active Taltz Autoinjector auto-injector every 30 (thirty) days On the 04/07/19 22 Active anastrozole (ARIMIDEX) 1 mg tablet Take 1 tablet (1 mg total) by mouth daily 06/03/19 23 Active ascorbic acid (VITAMIN C) 250 mg tablet Take 2 tablets (500 mg total) by mouth daily Active cholecalciferol 25 mcg (1,000 unit) tablet Take 1 tablet (1,000 Units total) by mouth daily Active ferrous sulfate 325 mg (65 mg of elemental iron) tablet Take 1 tablet (325 mg total) by mouth every evening in addition to 2 tablets in the AM Active epoetin kira (Procrit) 20,000 unit/mL injection Inject 1 mL (20,000 Units total) under the skin every 2 (two) weeks 11/29/19 23 Active PARoxetine (PAXIL) 40 mg tablet Take 1 tablet (40 mg total) by mouth daily 10/16/19 24 Active budesonide-glycop yr-formoterol (Breztri Aerosphere) 160-9-4.8 mcg/actuation inhaler Inhale 2 puffs 2 (two) times a day Active QUEtiapine (SEROquel) 25 mg tablet Take 1 tablet (25 mg total) by mouth nightly 04/29/19 23 Active albuterol HFA (PROVENTIL HFA,VENTOLIN HFA,PROAIR HFA) 90 mcg/actuation inhaler Inhale 2 puffs every 6 (six) hours as needed for wheezing or shortness of breath Active multivitamin with minerals tablet Take 1 tablet by mouth daily Active vitamins A,C,S-eiqc-bkhbeq (ICAPS) 4,296 mcg-226 mg-90 mg capsule Take 1 capsule by mouth 2 (two) times a day Active CYANOCOBALAMIN, VITAMIN B-12, ORAL Take by mouth daily Active ipratropium-albut Zhang (DUO-NEB) 0.5-2.5 mg/3 mL nebulizer solutionIndicatio ns:Chronic Obstructive Pulmonary Disease with Bronchospasms Take 3 mL by nebulization every 6 (six) hours as needed for wheezing or shortness of breath 180 mL 1 11/25/19 24 Active guaiFENesin ER (MUCINEX) 600 mg 12 hr tablet Take 1 tablet (600 mg total) by mouth 2 (two) times a day 60 tablet 11/25/19 24 025 Active predniSONE (DELTASONE) 10 mg tablet Take 4tabs/d for 2 days, then 2tabs/d for 2 days, then 1tab/d for 2 days 14 tablet 11/25/19 24 Active Active Problems Problem Noted Date Diagnosed Date Acute on chronic respiratory failure with hypoxi a ([facility]) 11/22/2023 COPD exacerbation 11/22/2023 Non-small cell lung cancer 11/22/2023 HTN (hypertension) 11/22/2023 COVID 11/22/2023 Other specified anemias 11/22/2023 Social History Tobacco Use Types Packs/Day Years Used Date Smoking Tobacco: Every Day Cigarettes 0.5 50.3 Started: 11/21/1973 Tobacco Cessation:Ready to Q uit: No; Counseling Given: Not Answered Comments:0.5ppd x 50 years [facility] Utilities Answer Date Recorded In the past 12 months has [place], gas, oil, or water [employer] threatened to shut off services in your home? No 11/22/2023 Social Connection and Isolat ion Panel [NHANES] Answer Date Recorded In a typical week, how many times do you talk on the phone with family, friends, or neighbors? More than three times a week 11/22/2023 How often do you get togethe r with friends or relatives? Twice a week 11/22/2023 How often do you attend chur ch or sikh services? 1 to 4 times per year 11/22/2023 Do you belong to any clubs o r organizations such as orthodox groups, unions, fraternal or athletic groups, or school groups? No 11/22/2023 How often do you attend meet ings of the clubs or organizations you belong to? Never 11/22/2023 Are you , , di vorced, , never , or living with a partner? 11/22/2023 AUDIT-C Answer Date Recorded Q1: How often do you have a drink containing alcohol? Never 11/22/2023 Q2: How many drinks containi ng alcohol do you have on a typical day when you are drinking? Patient does not drink Q3: How often do you have si x or more drinks on one occasion? Never 11/22/2023 Overall Financial Resource Strain (CARDIA) Answe r Date Recorded How hard is it for you to pa y for the very basics like food, housing, medical care, and heating? Not hard at all 11/22/2023 Hunger Vital Sign Answer Date Recorded Within the past 12 months, y ou worried that your food would run out before you got the money to buy more. Never true 11/22/19 24 Within the past 12 months, t he food you bought just didn't last and you didn't have money to get more. Never true 11/22/2023 PRAPARE - Transportation Answer Date Re corded In the past 12 months, has l ack of transportation kept you from medical appointments or from getting medications? No 10/2023 In the past 12 months, has l ack of transportation kept you from meetings, work, or from getting things needed for daily living? No 11/22/2023 Housing Stability Vital Sign Answer Aram e Recorded In the last 12 months, was t here a time when you were not able to pay the mortgage or rent on time? No 11/22/2023 In the past 12 months, how m any times have you moved where you were living? 0 11/22/2023 At any time in the past 12 m [facility], were you homeless or living in a longterm (including now)? No 11/22/2023 Personal Safety Answer Date Recorded Have you ever been in or are you currently in a harmful physical or emotional relationship or is someone making you feel afraid or unsafe? 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 Gender Identity Female 11/22/2023 9:01 AM CDT Sexual Orientation Not on file Last Filed Vital Signs Vital Sign Reading Time Taken Comments Blood Pressure 129/63 11/25/2023 11:36 AM CDT Pulse 61 11/25/2023 11:36 AM CDT Temperature 36.8 ??C (98.2 ??F) 11/25/2023 11:36 AM C DT Respiratory Rate 16 11/25/2023 11:36 AM CDT Oxygen Saturation 100% 11/25/2023 11:36 AM CDT Inhaled Oxygen Concentration - - Weight 68.2 kg (150 lb 6.4 oz) 11/22/2023 12:38 AM CDT Height 154.9 cm (5' 1 ) 11/22/2023 12:38 AM CDT Body Mass Index 28.42 11/22/2023 12:38 AM CDT Plan of Treatment Not on file Insurance MEDICARE [employer] [facility] Advance Directives For more information, please contact: [phone] Documents on File Type Date Recorded Patient Senior Web Engineer Expl anation ADVANCE DIRECTIVE 11/27/2023 12:53 PM Pow er of Piano Sounding Board Matcher-Medical * LIMITED - No CPR (Latest Code Status on File) Date Activated Date Inactivated Comments 11/22/2023 1:02 AM 11/25/2023 8:45 PM Care Teams Lithographers Printer Relationship Specialty Start Date End Date Hernesto Joshi MD [address] [place] [address] PCP - General 06/22/16
--- OUTSIDE RECORDS SUMMARY | 2024-03-07 11:27 | XMS_ITS | Clinical Summary ---
Author Organization [facility] Address [address] [facility] [address] [facility] [place] [address] [place] [address] Care Team Providers Care Records Management Engineer Name Role Phone Kennedi Salcedo MD Primary Care Provider [phone] Bernadette Cedillo MD Unavailable David Michaud MD Unavailable [phone] Allergies Active Allergy Reactions Criticality Noted Date Comments Tape Rash Low 02/23/2020 Bupropion Rash Low 02/23/2020 Medications * This document contains information received from the source organization and may not represent a complete record from that organization. aspirin EC (ASPIRIN EC) 81 MG tablet Take 1 tablet (81 mg total) by mouth nightly at bedtime. Active folic acid 1 MG tablet Take 1 tablet (1 mg total) by mouth nightly at bedtime. Active Calcium Carbonate-Vitam in D (CALCIUM-VITAMI N D3) 600-125 MG-UNIT Tab Take 1 tablet by mouth daily. Active Multiple Vitamins-Minera ls (VISION-MITRA PRESERVE OR) Take 1 tablet by mouth daily. Active Multiple Vitamins-Minera ls (CENTRUM SILVER) Tab Take 1 tablet by mouth daily. Active ipratropium-alb uterol 0.5-2.5 (3) MG/3ML Solution Take 3 mLs by nebulization 2 (two) times a day. Active budesonide-form oterol 160-4.5 MCG/ACT inhaler Inhale 2 puffs into the lungs 2 (two) times daily. 1 Inhaler 3 Active vitamin C (ASCORBIC ACID) 250 MG tablet Take 2 tablets (500 mg total) by mouth daily. Active anastrozole (ARIMIDEX) 1 MG tablet Take 1 tablet by mouth daily. Active vitamin D3 (CHOLECALCIFERO L) 25 mcg tablet Take 1 tablet (25 mcg total) by mouth daily. Active ferrous sulfate, 65 mg elemental, 325 (65 FE) MG tablet Take 1 tablet (325 mg total) by mouth daily with breakfast. Active Ixekizumab (TALTZ) 80 MG/ML Solution Auto-injector Inject 80 mg into the skin every 30 (thirty) days. Active lisinopril (PRINIVIL) 10 MG tablet Take 1 tablet (10 mg total) by mouth daily. Active PARoxetine (PAXIL) 40 MG tablet Take 1 tablet (40 mg total) by mouth every morning. Active pregabalin (LYRICA) 150 MG capsule Take 1 tablet by mouth daily. Active QUEtiapine (SEROQUEL) 25 MG tablet Take 1 tablet (25 mg total) by mouth nightly at bedtime. Active tretinoin (RETIN-A) 0.1 % cream Apply topically nightly at bedtime. Active Varenicline Tartrate (TYRVAYA) 0.03 MG/ACT Solution 0.03 mg by Nasal route 2 (two) times daily. Active Active Problems Problem Noted Date Diagnosed Date Acute respiratory failure ([facility]) 02/13 Non-small cell cancer of left lung ([facility]) 07/12/2019 Other osteoporosis without current pathological fracture 02/18/2019 Malignant neoplasm of overla pping 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, estrogen receptor positive ([facility]) 03/12/2018 Social History Tobacco Use Types Packs/Day Years Used Date Smoking Tobacco: Every Day Cigarettes 0.5 51 Smokeless Tobacco: Never Alcohol Use Standard Drinks/Week Comments Not Currently 0 (1 standard drink = 0.6 oz pur e alcohol) Humiliation, Afraid, Rape, and Kick questionnair e Answer Date Recorded Within the last year, have y ou been afraid of your partner or ex-partner? No 02/23/2020 Within the last year, have y ou been humiliated or emotionally abused in other ways by your partner or ex-partner? No Within the last year, have y ou been kicked, hit, slapped, or otherwise physically hurt by your partner or ex-partner? No 02/23/2020 Within the last year, have y ou been raped or forced to have any kind of sexual activity by your partner or ex-partner? No 02/23/2020 Social Connection and Isolat ion Panel [NHANES] Answer Date Recorded In a typical week, how many times do you talk on the phone with family, friends, or neighbors? More than three times a week 02/23/2020 How often do you get togethe r with friends or relatives? More than three times a week 02/23/2020 How often do you attend chur ch or congregational services? 1 to 4 times per year 02/23/2020 Do you belong to any clubs o r organizations such as congregation groups, unions, fraternal or athletic groups, or school groups? No 02/23/2020 How often do you attend meet ings of the clubs or organizations you belong to? Never 02/23/2020 Are you , , di vorced, , never , or living with a partner? 02/23/2020 Overall Financial Resource Strain (CARDIA) Answe r Date Recorded How hard is it for you to pa y for the very basics like food, housing, medical care, and heating? Not hard at all 02/23/2020 [facility] - Occupational Stress Questionnaire Answer Date Recorded Do you feel stress - tense, restless, nervous, or anxious, or unable to sleep at night because your mind is troubled all the time - these days? Not at all 02/23/2020 Exercise Vital Sign Answer Date Recorde d On average, how many days pe r week do you engage in moderate to strenuous exercise (like a brisk walk)? 0 days 02/23/2020 On average, how many minutes do you engage in exercise at this level? 0 min 02/23/2020 Hunger Vital Sign Answer Date Recorded Within the past 12 months, y ou worried that your food would run out before you got the money to buy more. Never true 02/22/19 21 Within the past 12 months, t he food you bought just didn't last and you didn't have money to get more. Never true 02/23/2020 PRAPARE - Transportation Answer Date Re corded In the past 12 months, has l ack of transportation kept you from medical appointments or from getting medications? No 02/13 In the past 12 months, has l ack of transportation kept you from meetings, work, or from getting things needed for daily living? No 02/23/2020 Comments No Sex and Gender Information Value Date Recorded Sex Assigned at Female 02/23/2020 11:09 PM TELE MARKETING EXECUTIVE Legal Sex Female 5:19 PM CDT Gender Identity Female 02/23/2020 11:09 PM TELE MARKETING EXECUTIVE Sexual Orientation Straight 02/23/2020 11 :09 PM TELE MARKETING EXECUTIVE Last Filed Vital Signs Vital Sign Reading Time Taken Comments Blood Pressure 101/59 11/21/2023 10:30 PM CDT Pulse 83 11/21/2023 10:30 PM CDT Temperature 35.8 ??C (96.5 ??F) 11/21/2023 10:30 PM C DT Respiratory Rate 17 11/21/2023 10:30 PM CDT Oxygen Saturation 93% 11/21/2023 10:30 PM CDT Inhaled Oxygen Concentration - - Weight 69.6 kg (153 lb 7 oz) 11/21/2023 1:30 PM CDT Height 154.9 cm (5' 1 ) 11/21/2023 1:30 PM CDT Body Mass Index 28.99 11/21/2023 1:30 PM CDT Plan of Treatment Health Maintenance Due Date Last Done Comments DTaP, Tdap and Td Vaccines ( 1 - Tdap) 09/04/1966 Zoster Vaccines (1 of 2) 09/04/1997 Annual Medicare Wellness Visit 09/04/2012 Dexa Scan (General) 09/04/2012 Pneumococcal Vaccine: 65+ Years (2 of 2 - PPSV23 or PCV20) 12/23/2019 10/28/2019, 11/18/2015 RSV Immunization or 60+ Years (1 - 1-dose 75+ series) 09/04/2022 COVID-19 Vaccine ( - 2023-2 5 season) 2023 Influenza Adult (#1) 2023 10/05/2018, 11/21/2016 Hepatitis C Completed 10/19/2016 Meningococcal Vaccine Aged Out No marshall red eligible based on patient's age to complete this topic RSV Immunizations Under 20 Months Aged Out No longer eligible b ased on patient's age to complete this topic Procedures Procedure Name Priority Date/Time Associated Diagnosis Comments HEPATITIS C ANTIBODY Routine 10/19/2016 9:12 AM CDT from Last 3 Months or Most Recently Relevant to Health Maintenance Results * HEPATITIS C ANTIBODY (10/19/2016 9:12 AM CDT) HEPATITIS C AB NON-REACTI VE NON-REACTI VE 10/19/2016 6:[address] [facility] Comment: ??TESTING PERFORMED [facility] [place] [address] SERUM OR PLASMA SPECIMEN / Unknown 10/19/2016 9:12 AM CDT 10/19/2016 9:22 AM CDT us Generic Conversion Md [facility] Final R esult [facility] [address] [place] [address], [place] [phone] from Last 3 Months or Most Recently Relevant to Health Maintenance Insurance [employer] MEDICARE [facility] Advance Directives Documents on File Type Date Recorded Patient Cota Expl anation Advance Directives and Living Will 11/22/2023 9:16 AM 06/14/2021 POA FOR HEALTH CARE * Full Code (Latest Code Status on File) Date Activated Date Inactivated Comments 02/23/2020 10:56 PM 02/25/2020 8:21 PM Care Teams Records Management Engineer Relationship Specialty Start Date End Date Kennedi Salcedo MD PCP - General FAMILY PRACTICE 02/23/20 Bernadette Cedillo MD [address] [place] [id number] FAMILY PRACTICE 11/21/23 [place] [address] [place] [address] [place] [id number] HEMATOLOGY/ONCOLOGY 11/21/23
--- OUTSIDE RECORDS SUMMARY | 2024-03-07 11:27 | XMS_ITS | Clinical Summary ---
Author Organization [facility] Address [address] [place] [address] Care Team Providers Care Rope Rider Name Role Phone Hernesto Joshi MD Primary Care Provider [phone] Allergies Active Allergy Reactions Criticality Noted Date [...] 1 tablet by mouth daily Active vitamins A,C,D-htph-vmbzzc (ICAPS) 4,296 mcg-226 mg-90 mg capsule Take [...] on chronic respiratory failure with hypoxi a ([facility]) 11/22/2023 COPD exacerbation 11/22/2023 Non-small cell lung cancer 11/22/2023 HTN (hypertension) 11/22/2023 COVID 11/22/2023 Other specified anemias 11/22/2023 Surgical History Surgery Date Site/Laterality Comments APPENDECTOMY CHOLECYSTECTOMY CATARACT EXTRACTION BREAST LUMPECTOMY KNEE SURGERY CARPAL TUNNEL RELEASE Medical History Medical History Date Comments Breast cancer (HCC) Neuropathy (CMS/HCC) Lung cancer (HCC) COPD (chronic obstructive pulmonary disease) (HC C) Family History Medical History Relation Name Comments Lung cancer Father Family history of lung cancer - (Added by TW Conv) Uterine cancer Maternal Grandmother Famil y history of malignant neoplasm of uterus - (Added by TW Conv) Lung cancer Mother Family history of lung cancer - (Added by TW Conv) Uterine cancer Mother Family histor y of malignant neoplasm of uterus - (Added by TW Conv) Lung cancer Other 1 Family history of lung cancer - Relation: Uncle (Added by TW Conv) Breast cancer Other 2 Family history of malignant neoplasm of breast - Relation: Aunt (Added by TW Conv) Bone cancer Other 3 Bone cancer - R elation: Uncle (Added by TW Conv) Relation Name Status Comments Father Maternal Grandmother Mother Other 1 Other 2 Other 3 Social History Tobacco Use Types Packs/Day Years Used Date Smoking Tobacco: Every Day Cigarettes 0.5 50.3 Started: 11/21/1973 Tobacco Cessation:Ready to Q uit: No; Counseling Given: Not Answered Comments:0.5ppd x 50 years [employer] Utilities Answer Date Recorded In the past 12 months has [employer], gas, oil, or water [employer] threatened to shut off services in your [...] often do you attend chur ch or gnosticist services? 1 to 4 times per year 11/22/2023 Do you belong to any clubs o r organizations such as sabianist groups, unions, fraternal or athletic groups, or [...] any time in the past 12 m [facility], were you homeless or living in a half-way (including now)? No 11/22/2023 Personal Safety Answer Date Recorded Have you ever been in or are you currently in a harmful physical or emotional relationship or is someone making you feel afraid or unsafe? 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 ANCHOR TACK PULLER Gender Identity Female 11/22/2023 9:01 AM CDT Sexual Orientation Not on file Obstetrics History Last Filed Vital Signs Vital Sign Reading [...] 11/22/2023 12:38 AM CDT Plan of Treatment Health Maintenance Due Date Last Done Comments Depression Screening 1945 Hepatitis C Screening 1945 Osteoporosis Screening-Bone Density Scan 1945 Hepatitis B Screening 09/04/1965 Zoster Vaccine (1 of 2) 09/04/1966 DTaP/Tdap/Td Vaccine (1 - Tdap) 10/08/2009 0 Well Visit 65+ 09/04/2012 Covid-19 Vaccine (4 - 2023-2 5 season) 2023 09/30/2020, 05/21/2020, 04/23/2020 Influenza Vaccine (#1) 2023 0, 10/05/2018, 11/01/2017, Additional history exists Fall Risk Assessment 11/24/2024 11/25/2023 Breast Cancer Screening-Mammogram Discontinued 020, 09/17/2018 Pneumococcal vaccine 65+ Completed 020, 11/18/2015, 07/22/2013, Additional history exists Insurance MEDICARE [employer] [place] [facility] Advance Directives For more information, please contact: [phone] Documents on File Type Date Recorded Patient Television Cable Installer Expl anation ADVANCE DIRECTIVE 11/27/2023 12:53 PM Pow er of [employer] * LIMITED - No CPR (Latest Code Status on File) Date Activated Date Inactivated Comments 11/22/2023 1:02 AM 11/25/2023 8:45 PM Care Teams Rope Rider Relationship Specialty Start Date End Date Hernesto Joshi MD [address] [place] [address] PCP - General 06/22/16
--- OUTSIDE RECORDS SUMMARY | 2024-03-07 11:28 | XMS_ITS | Encounter Summary ---
Author Organization [facility] Address [address] [place] [address] Care Team Providers Care Overhead Irrigator Name Role Phone Bernadette Cedillo MD Primary Care Provider [phone] Encounter Details Date Type Department Care Team (Late Contact Info) Description 07/29/2019 Chart Note [facility] Radiation Therapy [address] [place] [address] [place] [address] [place] [address] Social History Tobacco Use Types Packs/Day Years Used Date Smoking Tobacco: Every Day Cigarettes 1 55 Smokeless Tobacco: Never Alcohol Use Standard Drinks/Week Comments No 0 (1 standard drink = 0.6 oz pur e alcohol) Comments No Sex and Gender Information Value Date Recorded Sex Assigned at Not on file Legal Sex Female 2:13 PM GEOGRAPHY DEPARTMENT CHAIR Gender Identity Not on file Sexual Orientation Not on file COVID-19 Exposure Response Date Recorded In the last month, have you been in contact with someone who was confirmed or suspected to have Coronavirus / COVID-19? No / Unsure 07/24/2019 9:24 AM CDT documented as of this encounter Plan of Treatment Upcoming Encounters Date Type Department Care Team (Late st Contact Info) Description 03/11/2024 2:15 PM GEOGRAPHY DEPARTMENT CHAIR Office Visit [facility] Oncology and Hematology - [address] [facility] [address] [place] [address] David Michaud MD [address] [facility] [address] [place] [address] documented as of this encounter Visit Diagnoses Not on filedocumented in this encounter Care Teams Overhead Irrigator Relationship Specialty Start Date End Date Bernadette Cedillo MD [address] [place] [address] PCP - General Family Practice 06/30/22 documented as of this encounter
--- OUTSIDE RECORDS SUMMARY | 2024-03-07 11:28 | XMS_ITS | Continuity of Care Document ---
Author Organization [facility] Address [address] [facility] [address] [place] [address] Phone Care Team Providers Care Information Assurance Name Role Phone Chevy Keith MD Unavailable Unavailable Allergies, Adverse Reactions, Alerts Substance Reaction Status Criticality TRIMETHOBENZAMIDE HCL Active No Inf ormation Medications Medication Instructions Dosage Effective Dates (start - stop) Status Comments gabapentin 100 mg capsule take 3 capsule (300MG) by oral route 3 times every day 300 MG - Active lorazepam 0.5 mg tablet take 2 tablet (1MG) by oral route 3 times every day as needed 1 MG - Active meclizine 12.5 mg tablet take 2 tablet (25MG) by oral route 3 times every day as needed 25 MG - Active diclofenac 1 % Topical Gel apply (2G) by topical route 4 times every day to the affected area(s) - Active fluocinolone 0.01 % Topical Cream apply by topical route 2- 4 times every day a thin layer to the affected area(s) 0.00 - Active Cormax 0.05 % Topical Ointment apply by topical route 2 times every day a thin layer to the affected area(s) - Active Versa Free Oral Soln - Active Vectical 3 mcg/gram Topical Ointment apply by topical route 2 times every day to the affected area(s) in the morning and evening 0.00 - Active clobetasol 0.05 % Topical Cream apply by topical route 2 times every day a thin layer to the affected area(s) 0.00 - Active Procedures Procedure Date CATARACT SURG W/IOL, 1 STAGE TORIC IOL NMN SURGERY CATARACT SURG W/IOL, 1 STAGE OFFICE/OUTPATIENT VISIT, [facility] OPHTHALMIC BIOMETRY Advance Directives Directive Yes / No Effective Date File Name No Information Encounters Encounter Description Practice Location Reason(s) For Visit Diagnoses Date Provider Providers Copied on Encounter [facility], [address] [place] [address], [id number], tel:[phone] [address] [place] [address] [facility] No Information 3 Sagar Reece. [address], [address], [place], [place], [id number] , [place]. tel:[phone] Referring Provider: Chevy Shelley, [address], [place], [place], [id number]. tel:[phone] [facility], [address] [place] [address], [id number], tel:[phone] [facility] No Information 3 Sagar Reece. [address], [address], [place], [id number] , [place]. [phone] Referring Provider: Chevy Shelley, [address], [place], [place], [id number]. tel:[phone] [facility], [address] [place] [address], [id number], tel:[phone] [address] [place] [address] No Information 3 Sagar Reece. [address], [address], [place], [id number] , [place]. [phone] Referring Provider: Chevy Shelley, [address], [place], [place], [id number]. tel:[phone] OFFICE/OUTPA TIENT VISIT, [facility], [address] [place] [address], [id number], tel:[phone] OPH CONSULT ADITYA PEREZ blurry vision (chief complaint) Senile nuclear sclerosisMacular degeneration (senile) of retina, unspecified 3 Sagar Reece. [address], [address], [place], [place], [id number] , . tel: [phone] Referring Provider: Chevy Shelley, [address], [place], [place], [id number]. tel:[phone] Family History Family Member Type Diagnosis Age At Onset Problem (finding) Family history of Macul ar Degeneration Problem (finding) Family history of Diabe donovan mellitus Problem (finding) Family history of Glauc rush Payers Payer name Insurance type Covered constitution party ID Authoriza tion(s) ePrep Medicare MB [id number] [employer] [place] [id number] Social History Type Description Quantity Date Captured Comments Sex Female Smoking Status No Information Chief Complaint And Reason For Visit No Information Plan Of Treatment Date Type Action Status No Information History Of Present Illness Encounter Date Complaint History Of Prese nt Illness No Information Instructions Date Instruction Additional Infor carter Senile nuclear scler osis OU - Cataracts account for the patient's complaints. Discussed all risks, benefits, procedures and recovery. Patient understands changing glasses will not improve vision. Patient desires to have surgery, recommend phacoemulsification with intraocular lens. Advised pt she would not be a good candidate for Restor lens. Discussed cost with pt. Pt will decide and then call back. OD Standard lens (OU depending if pt doesn't want Toric for OS) Distance Related to Senile nuclear sclerosis Macular Degeneration OU - Mild will cont to monitor. Related to Macular Degeneration Assessments Type Assessment Date No Information
--- OUTSIDE RECORDS SUMMARY | 2024-03-07 11:28 | XMS_ITS | Clinical Summary ---
Author Organization [facility] Address [address] [place] [address] Care Team Providers Care Computer Meteorologist Name Role Phone Bernadette Cedillo MD Primary Care Provider [phone] Allergies Active Allergy Reactions Criticality Noted Date Comments Adhesive Tape-Silicones Rash Low 06/17/2019 Bupropion Rash,Nausea and Vomiting High 02/23/2020 Trimethobenzamide Diarrhea Low 05/26/2020 Medications hydroCHLOROthiaz aishwarya (HYDRODIURIL) 12.5 mg tablet TK 1 T PO QD 1 9 Active omeprazole (PriLOSEC) 20 mg Capsule, Delayed Release(E.C.) TK 1 C PO BID 2 8 Active LYRICA 150 mg Capsule TK 1 C PO TID 1 9 Active folic acid (FOLVITE) 1 mg tablet TK 1 T PO QD 0 9 Active methotrexate (RHEUMATREX) 2.5 mg Tablet TK 5 TS PO Q WK 6 9 Active aspirin (ECOTRIN EC) 81 mg Tablet, Delayed Release (E.C.) Take 81 mg by mouth daily. Active apremilast (OTEZLA) 30 mg Tablet Take by mouth. Activ e ipratropium-albu teroL (DUONEB) 0.5 mg-3 mg(2.5 mg base)/3 mL Solution for Nebulization U 3 ML VIA NEB Q 4 H PRF SOB 0 Active multivitamin with minerals (MULTIPLE VITAMINS 55 PLUS ORAL) Take 1 Tablet by mouth. Active Calcium-Cholecal ciferol, D3, 600-125 mg-unit Tablet Take 1 Tablet by mouth. Active levoFLOXacin (LEVAQUIN) 500 mg tablet 1 Active metroNIDAZOLE (FLAGYL) 500 mg tablet 1 Active multivitamins-mi nerals-lutein (Centrum Silver) Tablet Take 1 Tablet by mouth. Active flu vaccine quadrivalent MF59C 2019-, 65 yr+,,PF, (Fluad Quad ,65y up,,PF,) 60 mcg (15 mcg x 4)/0.5 mL Syringe syringe Fluad Quad (65yr up)(PF) 60 mcg (15 mcg x 4)/0.5mL IM syringe ADM 0.5ML IM UTD Active sodium hyaluronate (ORTHOVISC) 30 mg/2 mL Syringe 2 mL. Acti ve lidocaine 1 % (XYLOCAINE) Solution lidocaine (PF) 10 mg/mL (1 %) injection solution In office injection administered by the provider Active triamcinolone acetonide (Kenalog) 10 mg/mL Suspension Kenalog 10 mg/mL suspension for injection In office injection administered by the provider Active doxycycline hyclate (VIBRAMYCIN) 100 mg capsule Take 100 mg by mouth 2 times daily. Active traMADoL (ULTRAM) 50 mg tablet Take 50 mg by mouth every 6 hours as needed. 2 Active nitrofurantoin (MACROBID) 100 mg capsule TAKE 1 CAPSULE BY MOUTH EVERY 12 HOURS FOR 5 DAYS 2 Active Taltz Autoinjector 80 mg/mL Auto-Injector 2 Active cefproziL (CEFZIL) 250 mg tablet TAKE 1 TABLET BY MOUTH TWICE DAILY FOR 10 DAYS 2 Active PARoxetine HCl (PAXIL) 30 mg tablet Take 40 mg by mouth daily. 2 Active Breztri Aerosphere 160-9-4.8 mcg/actuation HFA Aerosol Inhaler INHALE 2 PUFFS BY MOUTH EVERY MORNING AND EVERY EVENING. RINSE AND SPIT. USE WITH SPACER 2 Active QUEtiapine (SEROquel) 25 mg tablet TAKE 1 TO 2 TABLETS BY MOUTH EVERY DAY AT BEDTIME 3 Active epoetin kira (Procrit) 20,000 unit/mL SolutionIndicati ons:Chronic anemia,Non-small cell cancer of left lung (CMS/HCC) Inject 1 mL (20,000 Units) by subcutaneous injection every 2 weeks. 2 mL 11 3 Active varenicline (Tyrvaya) 0.03 mg/spray spray, metered, non-aerosol Administer 0.03 mg in each nostril 2 times daily. Active palbociclib 100 mg tabletIndication s:Malignant 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, estrogen receptor positive (CMS/HCC) Take 1 Tablet (100 mg) by mouth daily for 21 days on, then 7 days off. Repeat every 28 days. 21 Tablet 2 05/30/2023 9:29 AM CDT 4 Active anastrozole (ARIMIDEX) 1 mg tablet TAKE 1 TABLET(1 MG) BY MOUTH DAILY 90 Tablet 3 4 Active Active Problems Problem Noted Date Diagnosed Date Chronic anemia 05/05/2021 Non-small cell cancer of left lung 07/12/2019 Other osteoporosis without current pathological fracture 02/18/2019 Malignant neoplasm of overla pping 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, estrogen receptor positive 03/12/2018 Resolved Problems Problem Noted Date Diagnosed Date Resolved Date Lung nodules 01/22/2019 07/12/2019 Encounters Date Type Department Care Team Description 03/05/2024 External Device Data ST[facility] ABSTRACTION Provider, Abstract 03/04/2024 Orders Only [facility] Oncology and Hematology - [address] [place] [address] David Michaud MD 02/27/2024 External Device Data [facility] ABSTRACTION Provider, Abstract 02/27/2024 Orders Only [facility]ology - [place] [address] [place] [address] David Michaud MD 02/26/2024 Orders Only [facility]ematology - [place] [address] [place] [address] David Michaud MD Malignant 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, estrogen receptor positive (CMS/HCC) 02/21/2024 Orders Only [facility]ematology - [place] [address] [place] [address] David Michaud MD 02/12/2024 Orders Only [facility]ology - [place] [address] [phone] David Michaud MD Malignant 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, estrogen receptor positive (CMS/HCC) 01/30/2024 Orders Only [facility]ematology - [place] [address] David Michaud MD 01/29/2024 Orders Only [facility]ology - [place] [address] [phone] David Michaud MD Malignant 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, estrogen receptor positive (CMS/HCC) 01/16/2024 Orders Only [facility]ology - [address] David iMchaud MD 01/15/2024 Orders Only [facility] On[facility] and [facility]ematology - [address] David Michaud MD Malignant 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, estrogen receptor positive (CMS/HCC) (Primary Dx) 01/08/2024 Orders Only [facility]ematology - [address] [phone] David Michaud MD Malignant 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, estrogen receptor positive (CMS/HCC) 01/01/2024 Orders Only [facility]ology - [place] [address] David Michaud MD 12/25/2023 Orders Only [facility]ematology - [address] David Michaud MD Malignant 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, estrogen receptor positive (CMS/HCC) 12/15/2023 Orders Only [facility] On[facility] and Hematology - [address] [place] [address] David Michaud MD 12/11/2023 Orders Only [facility] Oncology and Hematology [facility] [address] [place] [address] David Michaud MD Malignant 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, estrogen receptor positive (CMS/HCC) from Last 3 Months Family History Medical History Relation Name Comments COPD Father Lung Cancer Father COPD Mother Diabetes Mother Lung Cancer Mother Uterine Cancer Mother Relation Name Status Comments Brother Father Mother Social History Tobacco Use Types Packs/Day Years Used Date Smoking Tobacco: Every Day Cigarettes 1 55 Smokeless Tobacco: Never Tobacco Cessation:Ready to Q uit: Not Asked; Counseling Given: Not Answered Alcohol Use Standard Drinks/Week Comments No 0 (1 standard drink = 0.6 oz pur e alcohol) Comments No Sex and Gender Information Value Date Recorded Sex Assigned at Not on file Legal Sex Female 2:13 PM BUTADIENE COMPRESSOR OPERATOR Gender Identity Not on file Sexual Orientation Not on file Last Filed Vital Signs Vital Sign Reading Time Taken Comments Blood Pressure 162/87 12/01/2023 8:49 AM CDT Pulse 66 12/01/2023 8:44 AM CDT Temperature 36.5 ??C (97.7 ??F) 12/01/2023 8:44 AM CD T Respiratory Rate 16 12/01/2023 8:44 AM CDT Oxygen Saturation 95% 12/01/2023 8:44 AM CDT Inhaled Oxygen Concentration - - Weight 69.8 kg (153 lb 12.8 oz) 12/01/2023 8:44 AM CDT Height 154.9 cm (5' 1 ) 07/09/2021 9:59 AM CDT Body Mass Index 29.06 07/09/2021 9:59 AM CDT Plan of Treatment Upcoming Encounters Date Type Department Care Team (Late st Contact Info) Description 03/11/2024 2:15 PM BUTADIENE COMPRESSOR OPERATOR Office Visit [facility] Oncology and Hematology [facility] [address] [place] [address] David Michaud MD [address] [place] [address] Health Maintenance Due Date Last Done Comments DTAP/TDAP/TD VACCINES (1 - Tdap) 09/04/1966 PNEUMOCOCCAL VACCINE 65+ YEARS (1 of 2 - PCV) 09/04/18 67 Traditional Medicare (ACO) Annual Wellness Visit 09/04 ZOSTER VACCINE (1 of 2) 09/04/1997 RSV VACCINE (60+ or ) (1 - 1-dose 75+ series) 09/04/2022 INFLUENZA VACCINE (#1) 2023 Lung Cancer Screening Discontinued 06/22/2016 OSTEOPOROSIS SCREENING Completed 12/14/2020 COLORECTAL SCREENING Discontinued 06/16/2021 Colorectal Cancer Screening Discontinued FIT-DNA Q 3 years Discontinued FIT/FOBT Q 1 year Discontinued Flex Sig/CT Colonography Q 5 years Discontinued Procedures Procedure Name Priority Date/Time Associated Diagnosis Comments CREATININE Routine 03/04/2024 11:12 AM BUTADIENE COMPRESSOR OPERATOR CT CHEST W CONTRAST Routine 03/04/2024 10:06 AM BUTADIENE COMPRESSOR OPERATOR CBC WITH DIFFERENTIAL Routine 02/26/2024 12:16 PM BUTADIENE COMPRESSOR OPERATOR CBC WITH DIFFERENTIAL Routine 02/12/2024 1:48 PM BUTADIENE COMPRESSOR OPERATOR CBC WITH DIFFERENTIAL Routine 01/29/2024 11:25 AM BUTADIENE COMPRESSOR OPERATOR CBC WITH DIFFERENTIAL Routine 01/15/2024 10:35 AM BUTADIENE COMPRESSOR OPERATOR CBC WITH DIFFERENTIAL Routine 12/29/2023 4:18 PM BUTADIENE COMPRESSOR OPERATOR CBC WITH DIFFERENTIAL Routine 12/15/2023 11:10 AM CDT from Last 3 Months Results * CREATININE (03/04/2024 11:12 AM BUTADIENE COMPRESSOR OPERATOR) Blood us David Michaud MD CHEMISTRY ORDERABLES Final Resu lt * CT CHEST W CONTRAST (03/04/2024 10:06 AM BUTADIENE COMPRESSOR OPERATOR) Anatomical Region Laterality Modality Chest Other us David Michaud MD CT ORDERABLES Final Result * CBC WITH DIFFERENTIAL (02/26/2024 12:16 PM BUTADIENE COMPRESSOR OPERATOR) Only the most recent of6 resultswithin the time period is included. Blood us David Michaud MD HEMATOLOGY ORDERABLES Final Res ult from Last 3 Months Insurance [facility] [facility]IC[facility] [employer] [place] MEDICARE [facility] RX [facility] Medicare Part D RX PHARMACY LOG HOOKER, MD.Voice Commercial Care Teams Computer Meteorologist Relationship Specialty Start Date End Date Bernadette Cedillo MD [address] [place] [phone] PCP - General Family Practice 06/30/22
--- OUTSIDE RECORDS SUMMARY | 2024-03-07 11:28 | XMS_ITS | Encounter Summary ---
Author Organization [facility] [employer] Address [address] [place] [address] Care Team Providers Care Public Area Supervisor Name Role Phone Bernadette Cedillo MD Primary Care Provider [phone] Encounter Details Date Type Department Care Team ([facility] Contact Info) Description 06/10/2022 Abstract [facility] Oncology and Hematology - [place] [address] [place] [address] Greg Barrow RN Social History Tobacco Use Types Packs/Day Years Used Date Smoking Tobacco: Every Day Cigarettes 1 55 Smokeless Tobacco: Never Alcohol Use Standard Drinks/Week Comments No 0 (1 standard drink = 0.6 oz pur e alcohol) Comments No Sex and Gender Information Value Date Recorded Sex Assigned at Not on file Legal Sex Female 2:13 PM RISK SPECIALIST Gender Identity Not on file Sexual Orientation Not on file COVID-19 Exposure Response Date Recorded In the last 10 days, have yo u been in contact with someone who was confirmed or suspected to have Coronavirus/COVID-19? No / Unsure 06/02/2022 1:16 PM CDT documented as of this encounter Plan of Treatment Upcoming Encounters Date Type Department Care Team ([facility] Contact Info) Description 03/11/2024 2:15 PM RISK SPECIALIST Office Visit [facility] Oncology and Hematology - [address] [place] [address] David Michaud MD [address] [facility] [address] [place] [address] documented as of this encounter Visit Diagnoses Not on filedocumented in this encounter Care Teams Public Area Supervisor Relationship Specialty Start Date End Date Bernadette Cedillo MD [address] [place] [address] PCP - General Family Practice 06/30/22 documented as of this encounter
--- OUTSIDE RECORDS SUMMARY | 2024-03-07 11:28 | XMS_ITS | Encounter Summary ---
Author Organization [facility] [employer] Address [address] [place] [address] Care Team Providers Care Aluminum Hydroxide Process Operator Name Role Phone Bernadette Cedillo MD Primary Care Provider [phone] Encounter Details Date Type Department Care Team (Late Contact Info) Description 01/23/2023 Abstract [facility] Oncology and Hematology - [address] [place] [address] Colette Cage, STEVE Social History Tobacco Use Types Packs/Day Years Used Date Smoking Tobacco: Every Day Cigarettes 1 55 Smokeless Tobacco: Never Alcohol Use Standard Drinks/Week Comments No 0 (1 standard drink = 0.6 oz pur e alcohol) Comments No Sex and Gender Information Value Date Recorded Sex Assigned at Not on file Legal Sex Female 2:13 PM PHYSICIAN PRIMARY CARE SPORTS MEDICINE Gender Identity Not on file Sexual Orientation Not on file documented as of this encounter Plan of Treatment Upcoming Encounters Date Type Department Care Team (Late st Contact Info) Description 03/11/2024 2:15 PM PHYSICIAN PRIMARY CARE SPORTS MEDICINE Office Visit [facility] Oncology and Hematology - [address] [place] [address] David Michaud MD [address] [facility] [address] [place] [address] documented as of this encounter Visit Diagnoses Not on filedocumented in this encounter Care Teams Aluminum Hydroxide Process Operator Relationship Specialty Start Date End Date Bernadette Cedillo MD [address] [place] [address] PCP - General Family Practice 06/30/22 documented as of this encounter
== END 2024-03-04 06:49 | disposition home or self-care (01) ==
PROVIDERS: PCP Family Medicine; Visit Provider Internal Medicine Hematology & Oncology
DX: R91.1 Solitary pulmonary nodule (principal); J98.4 Other disorders of lung; M89.8X5 Other specified disorders of bone, thigh; C50.812 Malignant neoplasm of overlapping sites of left female breast; Z17.0 Estrogen receptor positive status [ER+]; Z92.3 Personal history of irradiation
CPT/HCPCS: 71260; Q9967

== ENCOUNTER 2024-03-11 12:48 | Inpatient (IN) | payer MEDICARE, OTHER, SELFPAY ==
[2024-03-11] VITALS (23 sets, daily range): BP systolic 117–141; BP diastolic 58–80; PULSE 75–111; RESP 12–29; TEMP 36.4–36.9; O2SAT 83–100; BMI 29.6
--- NOTE | ~2024-03-11 | CT_ITS ---
EXAMINATION: CTA chest PE protocol DATE: 03/11/2024 18:00 INDICATION: Hypoxia. TECHNIQUE: Computed tomography angiography (CTA) of the chest was performed with 100 mL Omnipaque-350 intravenous contrast timed to evaluate the pulmonary arteries. Coronal maximum intensity projection 3D-reconstructions were created by the technologist. Automated exposure control and iterative reconst ruction technique were employed. The dose-length product was 485.98 mGy-cm. COMPARISON: Chest CT 03/04/2024, 01/16/24, 08/14/23, 01/18/23 FINDINGS: There is mild elevation of left hemidiaphragm. There are changes of wedge resection in righ t lung upper lobe. There is a 13 mm nodule in right upper lobe. There is a 14 mm nodule in right uppe r lobe. There is a 10 mm nodule in right lower lobe. There is a 5 mm nodule in left upper lobe. There is a 18 mm nodule in lingula. There is mild atelectasis bilaterally. No pleural effusion. The heart size is normal. No pericardial effusion. There is no pulmonary embolus. There is a 4.1 cm cyst in the spleen. There is a 3.7 cm cyst in left kidney. There are old fractures multiple left rib fractures. There is severe cervical and thoracic spondylosis. There is a mixed lytic and sclerotic lesion in L1 vertebral body. IMPRESSION: 1. No pulmonary embolus. 2. Pulmonary nodules with worsening from 01/16/2024, consistent with metastatic disease. 3. Bone lesion in L1, stable from 01/18/23, suspicious for metastatic disease. 4. Mild emphysema. Reviewed, dictated and finalized at location A. S SERVICE PROMOTER
--- NOTE | ~2024-03-11 | US_ITS ---
EXAMINATION: US soft tissue chest DATE: 03/11/2024 17:46 INDICATION: Hypoxia. TECHNIQUE: Multiple grayscale ultrasound images of the chest were obtained. COMPARISON: Chest CT 03/11/2024 FINDINGS: There is no left-sided pleural effusion. IMPRESSION: 1. No left-sided pleural effusion. Reviewed, dictated and finalized at location A. [employer]ANING
--- NOTE | ~2024-03-11 | XR_ITS ---
CHEST RADIOGRAPH, PA AND LATERAL CLINICAL HISTORY: shortness of breath . COMPARISON: Reference is made to a CT examination of the chest dated 03/04/2024. TECHNIQUE: PA and lateral views of the chest. FINDINGS The cardiomediastinal silhouette is enlarged, unchanged. Redemonstration of a right upper lobe mass, consistent with patient's history. Hazy opacification of the left hemidiaphragm, findings suggesting a small left-sided pleural effusion . Remainder of the lungs are clear. IMPRESSION: Right apical lung mass left-sided pleural effusion, as detailed Reviewed, dictated and finalized at location A. IFIED AL[employer] COUNSELOR
--- OUTSIDE RECORDS SUMMARY | 2024-03-11 13:18 | XMS_ITS | Clinical Summary ---
Author Organization [facility] Address [address] [place] [address] Care Team Providers Care Die Try Out Worker Name Role Phone Hernesto Joshi MD Primary Care Provider [phone] Allergies Active Allergy Reactions Criticality Noted Date [...] 1 tablet by mouth daily Active vitamins A,C,S-fdhi-knbgso (ICAPS) 4,296 mcg-226 mg-90 mg capsule Take [...] on chronic respiratory failure with hypoxi a ([facility]) 11/22/2023 COPD exacerbation 11/22/2023 Non-small cell lung [...] Given: Not Answered Comments:0.5ppd x 50 years [employer] Utilities Answer Date Recorded In the past 12 months has [employer], gas, oil, or water [facility] threatened to shut off services in your [...] often do you attend chur ch or yarsanism services? 1 to 4 times per year 11/22/2023 Do you belong to any clubs o r organizations such as adventism groups, unions, fraternal or athletic groups, or [...] any time in the past 12 m [facility], were you homeless or living in a mcc (including now)? No 11/22/2023 Personal Safety Answer Date Recorded Have you ever been in or are you currently in a harmful physical or emotional relationship or is someone making you feel afraid or unsafe? 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 SENIOR MARKETING ENGINEER Gender Identity Female 11/22/2023 9:01 AM CDT [...] 11/18/2015, 07/22/2013, Additional history exists Insurance MEDICARE [employer] [place] [facility]IC[facility] Advance Directives For more information, please contact: [phone] Documents on File Type Date Recorded Patient Juvenile Court Judge Expl anation ADVANCE DIRECTIVE 11/27/2023 12:53 PM Pow er of Affiliate Marketing Coordinator-Medical * LIMITED - No CPR (Latest Code Status on File) Date Activated Date Inactivated Comments 11/22/2023 1:02 AM 11/25/2023 8:45 PM Care Teams Die Try Out Worker Relationship Specialty Start Date End Date Hernesto Joshi MD [address] [place] [address] PCP - General 06/22/16
--- OUTSIDE RECORDS SUMMARY | 2024-03-11 13:18 | XMS_ITS | Referral Summary ---
Author Organization [facility] Address [address] [place] [address] Care Team Providers Care Fire Management Technician Name Role Phone Hernesto Joshi MD Primary Care Provider [phone] Allergies Active Allergy Reactions Criticality Noted Date [...] 1 tablet by mouth daily Active vitamins A,C,B-nqxw-xnabbe (ICAPS) 4,296 mcg-226 mg-90 mg capsule Take [...] on chronic respiratory failure with hypoxi a ([facility]) 11/22/2023 COPD exacerbation 11/22/2023 Non-small cell lung cancer 11/22/2023 HTN (hypertension) 11/22/2023 COVID 11/22/2023 Other specified anemias 11/22/2023 Social History Tobacco Use Types Packs/Day Years Used Date Smoking Tobacco: Every Day Cigarettes 0.5 50.3 Started: 11/21/1973 Tobacco Cessation:Ready to Q uit: No; Counseling Given: Not Answered Comments:0.5ppd x 50 years [facility] Utilities Answer Date Recorded In the past 12 months has [employer], gas, oil, or water [employer] threatened to shut off services in your [...] often do you attend chur ch or oriental orthodox services? 1 to 4 times per year 11/22/2023 Do you belong to any clubs o r organizations such as nondenominational groups, unions, fraternal or athletic groups, or [...] any time in the past 12 m [facility], were you homeless or living in [...] on file Legal Sex Female 5:21 PM LAB SUPPORT TECHNICIAN Gender Identity Female 11/22/2023 9:01 AM CDT [...] Not on file Insurance MEDICARE [employer] [facility] Advance Directives For more information, please contact: [phone] Documents on File Type Date Recorded Patient Full Fashioned Garment Knitter Expl anation ADVANCE DIRECTIVE 11/27/2023 12:53 PM Pow er of Computer Science Teacher-Medical * LIMITED - No CPR (Latest Code Status on File) Date Activated Date Inactivated Comments 11/22/2023 1:02 AM 11/25/2023 8:45 PM Care Teams Fire Management Technician Relationship Specialty Start Date End Date Hernesto Joshi MD [address] [place] [address] PCP - General 06/22/16
--- OUTSIDE RECORDS SUMMARY | 2024-03-11 13:18 | XMS_ITS | Encounter Summary ---
Author Organization [facility] [employer] Address [address] [place] [address] Care Team Providers Care Warehouse Puller Name Role Phone Bernadette Cedillo MD Primary Care Provider [phone] Encounter Details Date Type Department Care Team (Late Contact Info) Description 01/23/2023 Abstract [facility] Oncology and Hematology - [address] [place] [address] Colette Cage, STEVE Social History Tobacco Use Types Packs/Day Years Used Date Smoking Tobacco: Every Day Cigarettes 1 55 Smokeless Tobacco: Never Alcohol Use Standard Drinks/Week Comments No 0 (1 standard drink = 0.6 oz pur e alcohol) Comments No Sex and Gender Information Value Date Recorded Sex Assigned at Not on file Legal Sex Female 2:13 PM FOREIGN FOOD COOK SPECIALTY Gender Identity Not on file Sexual Orientation Not on file documented as of this encounter Plan of Treatment Upcoming Encounters Date Type Department Care Team (Late Contact Info) Description 03/19/2024 9:15 AM FOREIGN FOOD COOK SPECIALTY Office Visit [facility] Oncology and Hematology - [address] [place] [address] David Michaud MD [address] [facility] [address] [place] [address] documented as of this encounter Visit Diagnoses Not on filedocumented in this encounter Care Teams Warehouse Puller Relationship Specialty Start Date End Date Bernadette Cedillo MD [address] [place] [address] PCP - General Family Practice 06/30/22 documented as of this encounter
--- OUTSIDE RECORDS SUMMARY | 2024-03-11 13:18 | XMS_ITS | Encounter Summary ---
Author Organization [facility] [employer] Address [address] [place] [address] Care Team Providers Care Coordinator Mining Products Name Role Phone Bernadette Cedillo MD Primary Care Provider [phone] Encounter Details Date Type Department Care Team ([facility] Contact Info) Description 06/10/2022 Abstract [facility] Oncology and Hematology - [address] [place] [address] Greg Barrow RN Social History Tobacco Use Types Packs/Day Years Used Date Smoking Tobacco: Every Day Cigarettes 1 55 Smokeless Tobacco: Never Alcohol Use Standard Drinks/Week Comments No 0 (1 standard drink = 0.6 oz pur e alcohol) Comments No Sex and Gender Information Value Date Recorded Sex Assigned at Not on file Legal Sex Female 2:13 PM TABLE COVER FOLDER Gender Identity Not on file Sexual Orientation Not on file COVID-19 Exposure Response Date Recorded In the last 10 days, have yo u been in contact with someone who was confirmed or suspected to have Coronavirus/COVID-19? No / Unsure 06/02/2022 1:16 PM CDT documented as of this encounter Plan of Treatment Upcoming Encounters Date Type Department Care Team ([facility] Contact Info) Description 03/19/2024 9:15 AM TABLE COVER FOLDER Office Visit [facility] Oncology and Hematology - [address] [place] [address] David Michaud MD [address] [facility] [address] [place] [address] documented as of this encounter Visit Diagnoses Not on filedocumented in this encounter Care Teams Coordinator Mining Products Relationship Specialty Start Date End Date Bernadette Cedillo MD [address] [place] [address] PCP - General Family Practice 06/30/22 documented as of this encounter
--- OUTSIDE RECORDS SUMMARY | 2024-03-11 13:18 | XMS_ITS | Patient Health Summary ---
Author Organization [facility] Address [address] [place] [address] Care Team Providers Care Rn Utilization Management Um Name Role Phone Bernadette Cedillo MD Primary Care Provider [phone] Note from [facility],non-owned Affiliates and Associated Physician Practices is amultiple site organization consisting of ambulatory clinics and hospital sitesin [place], [place], [place] and [place]. This disclosure is being madepursuant to the Care Everywhere program and may not contain all information available regarding this patient. Last updated 17.[facility] Social History Tobacco Use Types Packs/Day Years [...] AM CDT) Case Report Flow Cytometry ?Case: [id number] ? Authorizing Provider: ??Rocco Roblero MD ?Collected: ? 11/10/2022 09:00 AM ? Ordering Location: ? [facility] Care Pathology Lab ? Received: ?11/10/2022 11:47 AM ? Pathologist: ? Flaco Dejesus MD ? Specimen: ?Bone Marrow ? 11/10/2022 1:57 PM [facility] PATHOLOGY LAB Final Diagnosis Bone marrow, flow cytometric immunophenotypic analysis: - no clonal B-cell population or increase in blasts - small population of myeloid blasts (3% of events) and of hematogones (2%) identified - see interpretation 11/10/2022 1:57 PM [facility] PATHOLOGY LAB Flow Cytometry Interpretation Viability: 86% Barrett: lymphocytes 10%, dimCD45 12%, granulocytes 72%, monocytes 5%. Lymphocytes: - B-cells (16% of lymphocyte gate): polytypic by Orick:lambda light chain expression (K:L 2:1) - T-cells (94%): no immunophenotypic aberrancy detected Dim CD45 gate: - Blasts: detected, 3% of all events, express CD34, CD13, CD33 with costume shop manager pattern of maturation - Hematogones: detected, 2% of all events, CD19 and CD10 A bone marrow aspirate smear prepared from the flow cytometry specimen has been reviewed for quality control clerk purposes. 11/10/2022 1:57 PM [facility] PATHOLOGY LAB Flow Cytometry Results Differential Result Comment Flow Cell Count /uL 84,000 Total Viability % 86.0 Lymphocytes % 10 Dim CD45 Region % 12 Monocytes % 5 Granulocytes % 72 11/10/2022 1:57 PM [facility] PATHOLOGY LAB Reason for test Anemia, unspecified 285.9 11/10/2022 1:[address] [facility] PATHOLOGY LAB Client Specimen ID # [id number] 11/10/2022 1:[address] [facility] PATHOLOGY LAB Number of markers 10 were performed. A-2 Flow CD10 A-3 Flow CD13 A-5 Flow CD20 A-1 Flow CD5 A-4 Flow CD19 A-6 Flow CD33 A-7 Flow CD34 A-8 Flow CD45 A-9 Orick+CD19+ A-10 Lambda+CD19+ 11/10/2022 1:[address] [facility] PATHOLOGY LAB Pathologist Location at [facility] 11/10/2022 1:[address] [facility] PATHOLOGY LAB Disclaimer Test performed at [facility], [address] [place] [address], [facility]. The established laboratory minimum viability is [...] complexity clinical testing. 11/10/2022 1:[address] [facility] PATHOLOGY LAB Embedded Images 1:[address] [facility] PATHOLOG[facility] LAB Pathology/Cytolo gy BONE MARROW SPECIMEN / Unknown 11/10/2022 9:00 AM CDT 11/10/2022 11:47 AM CDT Rocco Roblero MD LAB - PATHOLOGY/CYTO LOGY ORDERABLES [facility] PATHOLOGY LAB [address] [place] [address]. [place] [address], [facility] [phone] * BONE MARROW BIOPSY (STL) (11/10/2022 9:00 AM CDT) Case Report Bone Marrow Patholog y Report ?Case: [id number] ? Authorizing Provider: ??Rocco Roblero MD ?Collected: ? 11/10/2022 09:00 AM ? Ordering Location: ? [facility] Pathology Lab ? Received: ?11/14/2022 09:45 AM ? Pathologist: ? Rona Smith MD ? Specimens: ?? A) - Bone Marrow Clot ? B) - Bone Marrow Core ? 11/14/2022 10:[address] [facility] PATHOLOGY LAB Final Diagnosis Bone marrow, aspirate, clot section, and core biopsy: - Normocellular marrow with maturing trilineage hematopoiesis - Decreased storage iron - No evidence of lymphoma or high-grade myeloid neoplasm - See description. Peripheral blood smear: - Macrocytic anemia - See description 11/14/2022 10:[address] [facility] PATHOLOG[facility] Comment Overall, the bone marrow specimen is normocellular for age with maturing trilineage hematopoiesis and no evidence of lymphoma, a high-grade myeloid neoplasm, or significant dyspoiesis. Storage iron is decreased. Correlation with clinical findings and relevant cytogenetic/molecular testing is required. 11/14/2022 10:58 AM [facility] PATHOLOG[facility] LAB Peripheral Smear Description CBC Data: WBC - 7.9, Hgb - 8.3, MCV - 105.6, MCHC - 31, and Platelets - 172. Leukocyte number: normal. Granulocyte morphology: normal. Lymphocyte morphology: normal. Erythrocyte number: decreased. Erythrocyte morphology: macrocytic. Anisopoikilocytosis: mild. Polychromasia: mild. Platelet number: normal. Platelet morphology: normal. 11/14/2022 10:58 AM [facility] PATHOLOG[facility] LAB Bone Marrow Aspirate Differential count [...] Control is appropriately reactive. 11/14/2022 10:58 AM [facility] PATHOLOG[facility] LAB Bone Marrow Core Biopsy and [...] (by special stain): decreased. 11/14/2022 10:58 AM [facility] PATHOLOGY LAB Flow Cytometry Summary Concurrent flow cytometry ([id number]) shows no clonal B-cell population or increase in blasts. 11/14/2022 10:58 AM [facility] PATHOLOGY LAB Clinical History 77 year old woman with chronic anemia. 11/14/2022 10:58 AM [facility] PATHOLOGY LAB Materials Received Received are 20 slides and 3 blocks labeled [id number] along with a copy of the outside pathology report. The materials originate from [address] [place] [address]. All original materials are returned to the referring institution, along with a copy of our final report. 11/14/2022 10:58 AM CDT [facility] PATH[facility] Pathologist Location at [facility] 11/14/2022 10:[address] [facility] PATHOLOG[facility] Disclaimer The performance characteristics of all immunohistochemical and indirect immunofluorescence stains (if any) cited in this report were determined by the Histopathology Laboratory of [facility]. Some of these tests were developed by [...] attending (teaching) pathologist. 11/14/2022 10:[address] [facility] PATHOLOGY LAB Embedded Images 11/14/2022 10:[address] [facility] PATHOLOGY LAB Pathology/Cytology BONE MARROW SPECIMEN / Unknown 11/10/2022 9:00 AM CDT 11/14/2022 9:45 AM CDT Miscellaneous samples (specimen) BONE MARROW SPECIMEN / Unknown 11/10/2022 9:00 AM CDT 11/14/2022 9:59 AM CDT Rocco Rbolero MD LAB - PATHOLOGY/CYTO LOGY ORDERABLES Performing Organization Address City/State/[facility] Co de Phone Number [facility] PATHOLOGY LAB [address] [phone] Care Teams Rn Utilization Management Um Relationship Specialty Start Date End Date Bernadette Cedillo MD [address] [place] [address] PCP - General 06/22/21
--- OUTSIDE RECORDS SUMMARY | 2024-03-11 13:18 | XMS_ITS | Encounter Summary ---
Author Organization [facility] Address [address] [place] [address] Care Team Providers Care Supervisory Cbp Officer Name Role Phone Bernadette Cedillo MD Primary Care Provider [phone] Encounter Details Date Type Department Care Team (Late st Contact Info) Description 11/14/2022 Lab Requisition [facility] - Pathology Lab [address] [place] [address] Rocco Roblero MD [address] [place] [address] Illness, unspecified Social History Tobacco Use [...] Report Bone Marrow Patholog y Report ?Case: [id number] ? Authorizing Provider: ??Rocco Roblero MD ?Collected: ? 11/10/2022 09:00 AM ? Ordering Location: ? [facility] Pathology Lab ? Received: ?11/14/2022 09:45 AM ? Pathologist: ? Rona Smith MD ? Specimens: ?? A) - Bone Marrow Clot ? B) - Bone Marrow Core ? 11/14/2022 10:58 AM [facility] PATHOLOGY LAB Final Diagnosis Bone marrow, aspirate, clot section, and core biopsy: - Normocellular marrow with maturing trilineage hematopoiesis - Decreased storage iron - No evidence of lymphoma or high-grade myeloid neoplasm - See description. Peripheral blood smear: - Macrocytic anemia - See description 11/14/2022 10:58 AM [facility] PATHOLOG[facility] LAB Comment Overall, the bone marrow specimen is normocellular for age with maturing trilineage hematopoiesis and no evidence of lymphoma, a high-grade myeloid neoplasm, or significant dyspoiesis. Storage iron is decreased. Correlation with clinical findings and relevant cytogenetic/molecular testing is required. 11/14/2022 10:58 AM [facility] PATHOLOGY LAB Peripheral Smear Description CBC Data: WBC - 7.9, Hgb - 8.3, MCV - 105.6, MCHC - 31, and Platelets - 172. Leukocyte number: normal. Granulocyte morphology: normal. Lymphocyte morphology: normal. Erythrocyte number: decreased. Erythrocyte morphology: macrocytic. Anisopoikilocytosis: mild. Polychromasia: mild. Platelet number: normal. Platelet morphology: normal. 11/14/2022 10:58 AM [facility] PATHOLOG[facility] LAB Bone Marrow Aspirate Differential [...] Control is appropriately reactive. 11/14/2022 10:58 AM [facility] PATHOLOG[facility] LAB Bone Marrow Core Biopsy [...] (by special stain): decreased. 11/14/2022 10:58 AM [facility] PATHOLOG[facility] Flow Cytometry Summary Concurrent flow cytometry ([id number]) shows no clonal B-cell population or increase in blasts. 11/14/2022 10:58 AM [facility] PATHOLOG[facility] LAB Clinical History 77 year old woman with chronic anemia. 11/14/2022 10:58 AM [facility] PATHOLOG[facility] LAB Materials Received Received are 20 slides and 3 blocks labeled [id number] along with a copy of the outside pathology report. The materials originate from [place] [address]. All original materials are returned to the referring institution, along with a copy of our final report. 11/14/2022 10:58 AM [facility] PATHOLOGY LAB Pathologist Location at [facility] 11/14/2022 10:58 AM CDT [facility] PATHOLOGY LAB Disclaimer The performance characteristics of all immunohistochemical and indirect immunofluorescence stains (if any) cited in this report were determined by the Histopathology Laboratory of [facility]. Some of these tests were developed [...] (teaching) pathologist. 11/14/2022 10:58 AM CDT [facility] PATHOLOG[facility] Embedded Images 11/14/2022 10:58 AM CDT [facility] PATH[facility] Pathology/Cytology BONE MARROW SPECIMEN / Unknown 11/10/2022 9:00 AM CDT 11/14/2022 9:45 AM CDT Miscellaneous samples (specimen) BONE MARROW SPECIMEN / Unknown 11/10/2022 9:00 AM CDT 11/14/2022 9:59 AM CDT Rocco Roblero MD LAB - PATHOLOGY/CYTO LOGY ORDERABLES Performing Organization Address City/State/[facility] Co de Phone Number [facility] [address] [phone] documented in this encounter Visit Diagnoses Diagnosis Illness, unspecified documented in this encounter Care Teams Supervisory Cbp Officer Relationship Specialty Start Date End Date Bernadette Cedillo MD [address] [place] [address] PCP - General 06/22/21 documented as of this encounter
--- OUTSIDE RECORDS SUMMARY | 2024-03-11 13:18 | XMS_ITS | Encounter Summary ---
Author Organization [facility] Address [address] [place] [address] Care Team Providers Care Telehealth Nurse Name Role Phone Bernadette Cedillo MD Primary Care Provider [phone] Encounter Details Date Type Department Care Team (Late Contact Info) Description 07/29/2019 Chart Note [facility] Radiation Therapy [address] [place] [address] [place] [address] [place] [address] Social History Tobacco Use Types Packs/Day Years Used Date Smoking Tobacco: Every Day Cigarettes 1 55 Smokeless Tobacco: Never Alcohol Use Standard Drinks/Week Comments No 0 (1 standard drink = 0.6 oz pur e alcohol) Comments No Sex and Gender Information Value Date Recorded Sex Assigned at Not on file Legal Sex Female 2:13 PM DELI WORKER Gender Identity Not on file Sexual Orientation Not on file COVID-19 Exposure Response Date Recorded In the last month, have you been in contact with someone who was confirmed or suspected to have Coronavirus / COVID-19? No / Unsure 07/24/2019 9:24 AM CDT documented as of this encounter Plan of Treatment Upcoming Encounters Date Type Department Care Team (Late st Contact Info) Description 03/19/2024 9:15 AM DELI WORKER Office Visit [facility] Oncology and Hematology - [place] [address] [facility] [address] [place] [address] David Michaud MD [address] [place] [address] documented as of this encounter Visit Diagnoses Not on filedocumented in this encounter Care Teams Telehealth Nurse Relationship Specialty Start Date End Date Bernadette Cedillo MD [address] [place] [address] PCP - General Family Practice 06/30/22 documented as of this encounter
--- OUTSIDE RECORDS SUMMARY | 2024-03-11 13:18 | XMS_ITS | Encounter Summary ---
Author Organization [facility] Address [address] [place] [address] Care Team Providers Care Cigarette Package Examiner Name Role Phone Bernadette Cedillo MD Primary Care Provider [phone] Encounter Details Date Type Department Care Team (Late st Contact Info) Description 11/14/2022 Lab Requisition [facility] - [facility] Lab [address] [place] [address] Rocco Roblero MD [address] [address] Illness, unspecified Social History Tobacco [...] unspecified documented in this encounter Care Teams Cigarette Package Examiner Relationship Specialty Start Date End Date Bernadette Cedillo MD [address] [place] [address] PCP - General 06/22/21 documented as of this encounter
--- OUTSIDE RECORDS SUMMARY | 2024-03-11 13:18 | XMS_ITS | Encounter Summary ---
Author Organization [facility] Address [address] [place] [address] Care Team Providers Care Manager Equipment Name Role Phone Bernadette Cedillo MD Primary Care Provider [phone] Encounter Details Date Type Department Care Team (Late st Contact Info) Description 11/10/2022 Lab Requisition [facility] - Pathology Lab [address] [place] [address] Rocco Roblero MD [address] [address] Anemia, unspecified Social History Tobacco [...] AM CDT) Case Report Flow Cytometry ?Case: [id number] ? Authorizing Provider: ??Rocco Roblero MD ?Collected: ? 11/10/2022 09:00 AM ? Ordering Location: ? [facility] Pathology Lab ? Received: ?11/10/2022 11:47 AM ? Pathologist: ? Flaco Dejesus MD ? Specimen: ?Bone Marrow ? 11/10/2022 1:57 PM CDT [facility] PATH[facility] Final Diagnosis Bone marrow, flow cytometric immunophenotypic analysis: - no clonal B-cell population or increase in blasts - small population of myeloid blasts (3% of events) and of hematogones (2%) identified - see interpretation 11/10/2022 1:57 PM [facility] PATHOLOG[facility] LAB Flow Cytometry Interpretation Viability: 86% Barrett: lymphocytes 10%, dimCD45 12%, granulocytes 72%, monocytes 5%. Lymphocytes: - B-cells (16% of lymphocyte gate): polytypic by Aspinwall:lambda light chain expression (K:L 2:1) - T-cells (94%): no immunophenotypic aberrancy detected Dim CD45 gate: - Blasts: detected, 3% of all events, express CD34, CD13, CD33 with figure clerk pattern of maturation - Hematogones: detected, 2% of all events, CD19 and CD10 A bone marrow aspirate smear prepared from the flow cytometry specimen has been reviewed for quality and reliability engineer purposes. 11/10/2022 1:57 PM [facility] PATHOLOG[facility] LAB Flow Cytometry Results Differential Result Comment Flow Cell Count /uL 84,000 Total Viability % 86.0 Lymphocytes % 10 Dim CD45 Region % 12 Monocytes % 5 Granulocytes % 72 11/10/2022 1:57 PM CDT [facility] Reason for test Anemia, unspecified 285.9 11/10/2022 1:57 PM CDT [facility] Client Specimen ID # [id number] 11/10/2022 1:57 PM CDT [facility] Number of markers 10 were performed. A-2 Flow CD10 A-3 Flow CD13 A-5 Flow CD20 A-1 Flow CD5 A-4 Flow CD19 A-6 Flow CD33 A-7 Flow CD34 A-8 Flow CD45 A-9 Aspinwall+CD19+ A-10 Lambda+CD19+ 11/10/2022 1:57 PM CDT [facility] Pathologist Location at [facility] 11/10/2022 1:57 PM CDT [facility] Disclaimer Test performed at [facility], [address] [place] [address], [facility]. The established laboratory minimum viability is [...] complexity clinical testing. 11/10/2022 1:57 PM CDT [facility] Embedded Images 1:57 PM CDT [facility] Pathology/Cytolo gy BONE MARROW SPECIMEN / Unknown 11/10/2022 9:00 AM CDT 11/10/2022 11:47 AM CDT Rocco Roblero MD LAB - PATHOLOGY/CYTO LOGY ORDERABLES [facility] [address] [place] [address]. [address] [phone] documented in this encounter Visit Diagnoses Diagnosis Anemia, unspecified documented in this encounter Care Teams Manager Equipment Relationship Specialty Start Date End Date Bernadette Cedillo MD [address] [place] [address] PCP - General 06/22/21 documented as of this encounter
--- OUTSIDE RECORDS SUMMARY | 2024-03-11 13:18 | XMS_ITS | Clinical Summary ---
Author Organization [facility] Address [address] [place] [address] Care Team Providers Care Presentation Designer Name Role Phone Bernadette Cedillo MD Primary Care Provider [phone] Source Comments [facility],non-owned Affiliates and Associated Physician Practices is amultiple site organization consisting of ambulatory clinics and hospital sitesin [place], [place], [place] and [place]. This disclosure is being madepursuant to the Care Everywhere program and may not contain all information available regarding this patient. Last updated 17.[facility] Social History Tobacco Use Types Packs/Day Years [...] age to complete this topic Care Teams Presentation Designer Relationship Specialty Start Date End Date Bernadette Cedillo MD [address] [place] [address] PCP - General 06/22/21
--- OUTSIDE RECORDS SUMMARY | 2024-03-11 13:18 | XMS_ITS | Clinical Summary ---
Author Organization [facility] Address [address] [place] [address] [place] [address] Care Team Providers Care Corporate Controller Name Role Phone Kennedi Salcedo MD Primary Care Provider [phone] Bernadette Cedillo MD Unavailable David Michaud MD Unavailable [phone] Allergies Active Allergy Reactions Criticality Noted [...] Noted Date Diagnosed Date Acute respiratory failure ([facility]) 02/13 Non-small cell cancer of left lung ([facility]) 07/12/2019 Other osteoporosis without current pathological fracture 02/18/2019 Malignant neoplasm of overla pping 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, estrogen receptor positive ([facility]) 03/12/2018 Social History Tobacco Use Types Packs/Day [...] often do you attend chur ch or mandaen services? 1 to 4 times per year 02/23/2020 Do you belong to any clubs o r organizations such as caodaism groups, unions, fraternal or athletic groups, or [...] and heating? Not hard at all 02/23/2020 [facility] - Occupational Stress [...] Sex Assigned at Female 02/23/2020 11:09 PM MAIL ROOM CLERK Legal Sex Female 5:19 PM CDT Gender Identity Female 02/23/2020 11:09 PM MAIL ROOM CLERK Sexual Orientation Straight 02/23/2020 11 :09 PM MAIL ROOM CLERK Last Filed Vital Signs Vital Sign Reading [...] 10/05/2018, 11/21/2016 Hepatitis C Completed 10/19/2016 Meningococcal B Vaccine Aged Out No l onger eligible based on patient's age to complete this topic Meningococcal Vaccine Aged Out No marshall red [...] VE NON-REACTI VE 10/19/2016 6:25 PM CDT [facility] Comment: ??TESTING PERFORMED [facility] [place] [address] SERUM OR PLASMA SPECIMEN / Unknown 10/19/2016 9:12 AM CDT 10/19/2016 9:22 AM CDT us Generic Conversion [facility] Final R esult [facility] [address] [place] [address], [place] [phone] from Last 3 Months or Most Recently Relevant to Health Maintenance Insurance [place] [address] [facility] Advance Directives Documents on File Type Date Recorded Patient Pulp Plant Supervisor Expl anation Advance Directives and Living Will 11/22/2023 9:16 AM 06/14/2021 POA FOR HEALTH CARE * Full Code (Latest Code Status on File) Date Activated Date Inactivated Comments 02/23/2020 10:56 PM 02/25/2020 8:21 PM Care Teams Corporate Controller Relationship Specialty Start Date End Date Kennedi Salcedo MD PCP - General FAMILY PRACTICE 02/23/20 Bernadette Cedillo MD [address] [place] [address] FAMILY PRACTICE 11/21/23 David Michaud MD [address] [address] HEMATOLOGY/ONCOLOGY 11/21/23
--- OUTSIDE RECORDS SUMMARY | 2024-03-11 13:18 | XMS_ITS | Referral Summary ---
Author Organization [facility] Address [address] [place] [address] Care Team Providers Care Filler Shredder Name Role Phone Bernadette Cedillo MD Primary Care Provider [phone] [facility],non-owned Affiliates and Associated Physician Practices is amultiple site organization consisting of ambulatory clinics and hospital sitesin [place], [place], [place] and [place]. This disclosure is being madepursuant to the Care Everywhere program and may not contain all information available regarding this patient. Last updated 17.[facility] Social History Tobacco Use Types Packs/Day Years Used Date Smoking Tobacco: Never Assessed Sex and Gender Information Value Date Recorded Sex Assigned at Not on file Gender Identity Not on file Sexual Orientation Not on file Plan of Treatment Not on file Care Teams Filler Shredder Relationship Specialty Start Date End Date Bernadette Cedillo MD [address] [place] [address] [facility] - General 06/22/21
--- OUTSIDE RECORDS SUMMARY | 2024-03-11 13:20 | XMS_ITS | Clinical Summary ---
Author Organization [facility] Address [address] [place] [address] Care Team Providers Care Public Health Worker Name Role Phone Bernadette Cedillo MD Primary Care Provider [phone] Allergies Active Allergy Reactions Criticality Noted Date [...] STL ABSTRACTION Provider, Abstract 03/04/2024 Orders Only [facility] - [place] [address] [place] [address] David Michaud MD 02/27/2024 External Device Data STL ABSTRACTION Provider, Abstract 02/27/2024 Orders Only [facility] - [place] [address] [place] [address] David Michaud MD 02/26/2024 Orders Only [facility] - [place] [address] [place] [address] David Michaud MD Malignant 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, estrogen receptor positive (CMS/HCC) 02/21/2024 Orders Only [facility] - [place] [address] [place] [address] David Michaud MD 02/12/2024 Orders Only [facility] - [place] [address] [phone] David Michaud MD Malignant 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, estrogen receptor positive (CMS/HCC) 01/30/2024 Orders Only [facility] - [place] [address] David Michaud MD 01/29/2024 Orders Only [facility] - [place] [address] [phone] David Michaud MD Malignant 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, estrogen receptor positive (CMS/HCC) 01/16/2024 Orders Only [facility] - [address] David Michaud MD 01/15/2024 Orders Only [facility] - [address] David Michaud MD Malignant 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, estrogen receptor positive (CMS/HCC) (Primary Dx) 01/08/2024 Orders Only [facility] - [address] [phone] David Michaud MD Malignant 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, estrogen receptor positive (CMS/HCC) 01/01/2024 Orders Only [facility] - [place] [address] David Michaud MD 12/25/2023 Orders Only [facility] - [address] David Michaud MD Malignant 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, estrogen receptor positive (CMS/HCC) 12/15/2023 Orders Only [facility] - [address] [place] [address] David Michaud MD 12/11/2023 Orders Only [facility] H[facility] [address] [place] [address] David Michaud MD Malignant neoplasm [...] on file Legal Sex Female 2:13 PM TUNNEL WORKER Gender Identity Not on file Sexual [...] st Contact Info) Description 03/19/2024 9:15 AM TUNNEL WORKER Office Visit [facility] [address] [place] [address] David Michaud MD [address] [facility] [address] [place] [address] Health Maintenance Due Date Last [...] Diagnosis Comments CREATININE Routine 03/04/2024 11:[address] CHEST W CONTRAST Routine 03/04/2024 10:06 AM TUNNEL WORKER CBC WITH DIFFERENTIAL Routine 02/26/2024 12:16 PM TUNNEL WORKER CBC WITH DIFFERENTIAL Routine 02/12/2024 1:48 PM TUNNEL WORKER CBC WITH DIFFERENTIAL Routine 01/29/2024 11:25 AM TUNNEL WORKER CBC WITH DIFFERENTIAL Routine 01/15/2024 10:35 AM TUNNEL WORKER CBC WITH DIFFERENTIAL Routine 12/29/2023 4:18 PM TUNNEL WORKER CBC WITH DIFFERENTIAL Routine 12/15/2023 11:10 AM CDT from Last 3 Months Results * CREATININE (03/04/2024 11:12 AM TUNNEL WORKER) Blood us David Michaud MD CHEMISTRY ORDERABLES Final Resu lt * CT CHEST W CONTRAST (03/04/2024 10:06 AM TUNNEL WORKER) Anatomical Region Laterality Modality Chest Other us David Michaud MD CT ORDERABLES Final Result * CBC WITH DIFFERENTIAL (02/26/2024 12:16 PM TUNNEL WORKER) Only the most recent of6 resultswithin the time period is included. 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
--- NOTE | 2024-03-11 13:48 | ECG_ITS ---
Test Date: 2024-03-11 14:20:22 Measurements Intervals Brogue Rate: 83 P: 49 TX: 199 QRS: -12 QRSD: 85 T: 49 QT: 353 QTc: 416 Interpretive Statements SINUS RHYTHM No previous ECG available for comparison Electronically Signed On 03-11-2024 21:12:22 GOLF CART MAKER by Juanito Andrews M.D.
--- NOTE | 2024-03-11 14:02 | ED.SOB ---
HPI - SOB/Dyspnea General Chief Complaint: Shortness of Breath/Dyspnea <Lupe Salazar APRN - Last Filed: 03/13/24 21:46> Stated Complaint: shortness of breath <Lupe Salazar APRN - Last Filed: 03/13/24 21:46> Time Seen by Provider: 03/11/24 13:50 <Lupe Salazar APRN - Last Filed: 03/13/24 21:46> Focused HPI: Patient is a 78-year-old female who presents to the ER with complaints of shortness of breath. She has history of COPD and reports his exacerbations started last night. Patient checked her on-call saturation last night and was at 70%. She is on 3 L nasal cannula at baseline. Patient endorses rattling, wheezing, increased lethargy, increased cough. She has been using her inhaler more frequently. She denies any recent fever, chest pain, abdominal pain. GENERAL: Ill-appearing, well-nourished, and in mild respiratory distress. HEAD: Normocephalic, atraumatic. CHEST: Wheezing all lobes upon auscultation. ?Mild respiratory distress. HEART: Regular rate and rhythm.? NEURO: ?Alert and oriented x3. Patient screened in triage and initial orders placed.? ?Additional care and disposition to be based upon?diagnostic testing and treatment. <Lupe Salazar APRN - Last Filed: 03/13/24 21:46> Related Data Home Medications: Home Medications ?Medication ?Instructions ?Recorded ?Confirmed ?Last Taken ?Type aspirin 81 mg tablet,delayed 81 mg PO DAILY 01/03/19 03/11/24 03/11/24 History release (Ian Low Dose Aspirin) mzewxxcc-yraznms-uree-lutein tablet 1 tablet PO DAILY 06/04/19 03/11/24 03/11/24 History cholecalciferol (vitamin D3) 25 25 mcg PO DAILY 05/12/21 03/11/24 03/11/24 History mcg (1,000 unit) capsule vit C 250 mg-vit E 90 mg-zinc 40 1 tablet PO BID 06/30/22 03/11/24 03/11/24 History mg-copper 1 xl-taixsl-sapqqf capsule (PreserVision AREDS-2) anastrozole 1 mg tablet 1 mg PO DAILY 07/14/22 03/11/24 03/11/24 History ipratropium 0.5 mg-albuterol 3 mg 3 ml inhalation BID 11/09/22 03/11/24 11/09/22 History (2.5 mg base)/3 mL nebulization soln ascorbate calcium (vitamin C) 500 500 mg PO DAILY 12/29/22 03/11/24 03/11/24 History mg tablet ferrous sulfate 325 mg (65 mg 650 mg PO DAILY 12/29/22 03/11/24 03/11/24 History iron) tablet (FeroSul) palbociclib 100 mg capsule 100 mg PO DAILY 07/18/23 03/11/24 Unknown History (Ibrance) acetaminophen 500 mg tablet 1,000 mg PO BID pain 03/11/24 03/11/24 Unknown History cholestyramine-aspartame 4 gram 1 ea PO TIDWM PRN IBS 03/11/24 03/11/24 Unknown History oral powder for susp in a packet (Prevalite) <Lupe Salazar, BOOKKEEPER - Last Filed: 03/13/24 21:46> Allergies/Adverse Reactions: Allergies Allergy/AdvReac Type Severity Reaction Status Date / Time bupropion (From Wellbutrin) Allergy Intermediate Rash Verified 03/11/24 22:19 adhesive tape Allergy Unknown BLISTERS Verified 03/11/24 22:19 Bleach (Sodium Hypochlorite) Allergy Unknown Itching Verified 03/11/24 22:19 benzocaine (From Tigan (with AdvReac Unknown Unknown Verified 03/11/24 22:19 benzocaine)) trimethobenzamide AdvReac Unknown N/V Verified 03/11/24 22:19 nickel AdvReac Itching Verified 03/11/24 22:19 <Lupe Salazar, BOOKKEEPER - Last Filed: 03/13/24 21:46> [facility] Past Medical History Medical History: Medical History (Updated 03/13/24 @ 11:51 by Mia Vaz MD) Pleural effusion Chronic renal insufficiency, stage III (moderate) Pneumonia PVD (peripheral vascular disease) Colon polyp Psoriatic arthritis Dependence on continuous supplemental oxygen Other specified counseling GERD (gastroesophageal reflux disease) Tobacco abuse Lung cancer Encounter for medication management Neuropathy Anxiety Arthritis Breast cancer COPD (chronic obstructive pulmonary disease) Irritable bowel disease <Lupe Salazar, BOOKKEEPER - Last Filed: 03/13/24 21:46> Surgical History Surgical History: Surgical History S/P lumpectomy of breast History of tonsillectomy Hx of cholecystectomy History of liver biopsy H/O cataract extraction History of appendectomy History of knee replacement History of carpal tunnel release History of lung surgery <Lupe Salazar, BOOKKEEPER - Last Filed: 03/13/24 21:46> Family History Family History: Family History Mother Diabetes mellitus Family history of lung cancer Family history of malignant neoplasm of uterus Family history of psoriasis Family history of malignant neoplasm Sibling Diabetes mellitus Father Family history of chronic obstructive pulmonary disease Family history of lung cancer Hypertension Family history of cardiovascular disease Grandparent Family history of malignant neoplasm of uterus Family history of coronary artery disease <Lupe Salazar, BOOKKEEPER - Last Filed: 03/13/24 21:46> Social History Social History: Social History Smoking packs per day: 0.5 Smoking cigarettes per day: 10.0 Years smoked: 50 Smoking pack-years: 25.00 Smoking status: Current every day smoker Tobacco type: cigarettes Second hand tobacco smoke exposure: Yes Smoking end date: 06/15/22 Alcohol intake: never Substance use: never Substance use type: does not use Do You Feel Safe in your Home?: Yes Lack of Transportation: No Lack of Food: Never True Current Housing: I Have Housing Concerned About Future Housing: No Difficulty Paying Gas/Electric Bills: No Difficulty Paying for Meds: No Currently Unemployed: No Education: High School Diploma/GED Difficulty w/ Childcare or Family Care: No Living arrangements: with family Occupation/Education: retired Gender identity (if verbalized by the patient): Female Spiritual care concerns: No Agree to blood products: Yes <Lupe Salazar, BOOKKEEPER - Last Filed: 03/13/24 21:46> Exam Narrative: APPEARANCE: No apparent distress. Head: atraumatic. EYES: EOMI, NOSE: Atraumatic NECK: Trachea midline RESPIRATORY: Tachypneic, decreased lung sounds in all loo, CARDIOVASCULAR: RRR, ABDOMINAL: Non-distended MUSCULOSKELETAl: No obvious deformities NEURO: Alert. Moving 4/4 extremities SKIN:: Warm, dry. Normal color PSYCHIATRIC: Normal affect <Hernesto Hicks MD - Last Filed: 03/11/24 19:42> Course Vital Signs Vital signs: Vital Signs Temperature 36.4 C 03/11/24 12:53 Pulse Rate 94 03/11/24 12:53 Respiratory Rate 20 03/11/24 12:53 Blood Pressure 141/80 H 03/11/24 12:53 Pulse Oximetry 94 03/11/24 12:53 Oxygen Delivery Nasal Cannula 03/11/24 12:53 Oxygen Flow Rate 3 03/11/24 12:53 Temperature 36.9 C 03/13/24 19:20 Pulse Rate 88 03/13/24 19:23 Respiratory Rate 20 03/13/24 19:23 Blood Pressure 135/62 03/13/24 19:20 Pulse Oximetry 92 03/13/24 20:00 Oxygen Delivery High Flow Therapy with Nasal Cannula 03/13/24 20:00 Oxygen Flow Rate 35 03/13/24 20:00 Fraction of Inspired Oxygen 45 03/13/24 20:00 <Lupe Salazar APRN - Last Filed: 03/13/24 21:46> Vital Signs Temperature 36.4 C 03/11/24 12:53 Pulse Rate 94 03/11/24 12:53 Respiratory Rate 20 03/11/24 12:53 Blood Pressure 141/80 H 03/11/24 12:53 Pulse Oximetry 94 03/11/24 12:53 Oxygen Delivery Nasal Cannula 03/11/24 12:53 Oxygen Flow Rate 3 03/11/24 12:53 Temperature 36.9 C 03/13/24 19:20 Pulse Rate 88 03/13/24 19:23 Respiratory Rate 20 03/13/24 19:23 Blood Pressure 135/62 03/13/24 19:20 Pulse Oximetry 92 03/13/24 20:00 Oxygen Delivery High Flow Therapy with Nasal Cannula 03/13/24 20:00 Oxygen Flow Rate 35 03/13/24 20:00 Fraction of Inspired Oxygen 45 03/13/24 20:00 <Hernesto Hicks MD - Last Filed: 03/11/24 19:42> MDM - SOB/Dyspnea MDM Narrative Medical decision making narrative: -Course: 78-year-old female history of lung cancer and COPD presenting for shortness of breath. Patient initially hypoxic on arrival in put on non-rebreather. Chest x-ray showed possible pleural effusion and IR was contacted for thoracentesis, however on ultrasound there was no sizable effusion to tap. CT PE was negative for pulmonary embolism. ABG showed acute on chronic respiratory acidosis. Patient placed on BiPAP. Started on antibiotics for COPD exacerbation. Patient be placed in the IMU for further management. Case discussed with Dr. Manjarrez and Dr. Cardoza. Code status discussed with patient and she is DNR/DNI. -DDX includes but is not limited to: Pneumonia, PE pleural effusion, COPD exacerbation -Co-morbidities complicating care: COPD, lung cancer -Independent interpretation of studies: Labs imaging reviewed -Shared decision making / Disposition: admitted. <Hernesto Hicks MD - Last Filed: 03/11/24 19:42> Lab Data Result diagrams: 03/13/24 09:51 03/13/24 08:33 <Lupe Salazar APRN - Last Filed: 03/13/24 21:46> Labs: Lab Results 03/11/24 Range/Units 14:26 WBC 5.0 (4.5-10.0) K/mm3 RBC 2.30 L (4.2-5.4) M/mm3 Hgb 7.3 L (12.0-15.0) g/dL Hct 25.0 L (37.0-47.0) % MCV 108.7 H (80-100) fl MCH 31.7 (26-34) pg MCHC 29.2 L (32-36) g/dl RDW 14.3 (11.5-14.5) % Plt Count 220 (150-375) k/mm3 MPV 9.7 (7.4-10.4) fl Immature Gran % (Auto) 0.8 H (0-0.5) % Neut % (Auto) 74.5 H (45.5-73.1) % Lymph % (Auto) 13.1 L (18.3-44.2) % [place] % (Auto) 6.8 (2.6-8.5) % Eos % (Auto) 4.2 (0-4.4) % Baso % (Auto) 0.6 (0.2-1.2) % Lymph # (Auto) 0.65 L (0.9-3.2) K/mm3 [place] # (Auto) 0.3 (0.1-0.6) K/mm3 Eos # (Auto) 0.2 (0-0.3) K/mm3 Baso # (Auto) 0.0 (0.0-0.1) K/mm3 Abs Immat Gran (auto) 0.04 H (0.00-0.031) K/mm3 Absolute Neuts (auto) 3.7 (1.3-6.7) K/mm3 Absolute Nucleated RBC 0.000 (0.0-0.012) K/mm3 Nucleated RBC % 0.0 (0.0-0.2) % Platelet Estimate Adequate (Adequate) Hypochromasia 1+ Anisocytosis 2+ Macrocytosis 2+ (NORMAL) Schistocytes None seen PT 13.1 (11.1-14.7) Seconds INR 0.9 APTT 20.8 L (22.3-36.8) Seconds D-Dimer 0.31 (<0.48) ug/mL Sodium 142 (137-145) mmol/L Potassium 4.5 (3.4-5.0) mmol/L Chloride 99 (98-107) mmol/L Carbon Dioxide 39 H (22-30) mmol/L Anion Gap 4 (4-12) mmol/L BUN 18 H (7-17) mg/dL Creatinine 0.81 (0.7-1.0) mg/dL Estim Creat Clear Calc 45 ml/min Estimated GFR > 60 (59 - ) Glucose 92 (65-110) mg/dL Calcium 10.4 H (8.4-10.2) mg/dL Magnesium 2.4 H (1.6-2.3) mg/dL Total Bilirubin 0.3 (0.2-1.3) mg/dL AST 28 (14-36) U/L ALT 15 (6-35) U/L Alkaline Phosphatase 83 (38-126) U/L Troponin I < 0.012 (0.000-0.034) ng/mL Total Protein 7.0 (6.3-8.2) g/dL Albumin 3.6 (3.5-5.1) g/dL Influenza A (RT-PCR) Negative (Negative) Influenza B (RT-PCR) Negative (Negative) RSV (RT-PCR) Negative (Negative) SARS-CoV-2 RNA (RT-PCR) Negative (Negative) <Lupe Owensuble, BOOKKEEPER - Last Filed: 03/13/24 21:46> Lab Results 03/11/24 Range/Units 14:26 WBC 5.0 (4.5-10.0) K/mm3 RBC 2.30 L (4.2-5.4) M/mm3 Hgb 7.3 L (12.0-15.0) g/dL Hct 25.0 L (37.0-47.0) % MCV 108.7 H (80-100) fl MCH 31.7 (26-34) pg MCHC 29.2 L (32-36) g/dl RDW 14.3 (11.5-14.5) % Plt Count 220 (150-375) k/mm3 MPV 9.7 (7.4-10.4) fl Immature Gran % (Auto) 0.8 H (0-0.5) % Neut % (Auto) 74.5 H (45.5-73.1) % Lymph % (Auto) 13.1 L (18.3-44.2) % [place] % (Auto) 6.8 (2.6-8.5) % Eos % (Auto) 4.2 (0-4.4) % Baso % (Auto) 0.6 (0.2-1.2) % Lymph # (Auto) 0.65 L (0.9-3.2) K/mm3 [place] # (Auto) 0.3 (0.1-0.6) K/mm3 Eos # (Auto) 0.2 (0-0.3) K/mm3 Baso # (Auto) 0.0 (0.0-0.1) K/mm3 Abs Immat Gran (auto) 0.04 H (0.00-0.031) K/mm3 Absolute Neuts (auto) 3.7 (1.3-6.7) K/mm3 Absolute Nucleated RBC 0.000 (0.0-0.012) K/mm3 Nucleated RBC % 0.0 (0.0-0.2) % Platelet Estimate Adequate (Adequate) Hypochromasia 1+ Anisocytosis 2+ Macrocytosis 2+ (NORMAL) Schistocytes None seen PT 13.1 (11.1-14.7) Seconds INR 0.9 APTT 20.8 L (22.3-36.8) Seconds D-Dimer 0.31 (<0.48) ug/mL Sodium 142 (137-145) mmol/L Potassium 4.5 (3.4-5.0) mmol/L Chloride 99 (98-107) mmol/L Carbon Dioxide 39 H (22-30) mmol/L Anion Gap 4 (4-12) mmol/L BUN 18 H (7-17) mg/dL Creatinine 0.81 (0.7-1.0) mg/dL Estim Creat Clear Calc 45 ml/min Estimated GFR > 60 (59 - ) Glucose 92 (65-110) mg/dL Calcium 10.4 H (8.4-10.2) mg/dL Magnesium 2.4 H (1.6-2.3) mg/dL Total Bilirubin 0.3 (0.2-1.3) mg/dL AST 28 (14-36) U/L ALT 15 (6-35) U/L Alkaline Phosphatase 83 (38-126) U/L Troponin I < 0.012 (0.000-0.034) ng/mL Total Protein 7.0 (6.3-8.2) g/dL Albumin 3.6 (3.5-5.1) g/dL Influenza A (RT-PCR) Negative (Negative) Influenza B (RT-PCR) Negative (Negative) RSV (RT-PCR) Negative (Negative) SARS-CoV-2 RNA (RT-PCR) Negative (Negative) <Hernesto Hicks MD - Last Filed: 03/11/24 19:42> ABG Data ABG results: 03/11/24 18:01 Puncture Site Right radial ABG pH 7.304 L ABG pCO2 76.8 H* ABG pO2 166.8 H ABG PO2/FiO2 Ratio 1.67 ABG HCO3 37.3 H ABG O2 Saturation 98.9 ABG O2 Content 10.6 L ABG Base Excess 9.6 A-a Gradient 469.4 Oxyhemoglobin 96.4 Total Hemoglobin 7.5 L* O2 Delivery Device Non-rebreather mask O2 Liters/Min 15.0 FiO2 100 <Lupe Salazar APRN - Last Filed: 03/13/24 21:46> 03/11/24 18:01 Puncture Site Right radial ABG pH 7.304 L ABG pCO2 76.8 H* ABG pO2 166.8 H ABG PO2/FiO2 Ratio 1.67 ABG HCO3 37.3 H ABG O2 Saturation 98.9 ABG O2 Content 10.6 L ABG Base Excess 9.6 A-a Gradient 469.4 Oxyhemoglobin 96.4 Total Hemoglobin 7.5 L* O2 Delivery Device Non-rebreather mask O2 Liters/Min 15.0 FiO2 100 <Hernesto Hicks MD - Last Filed: 03/11/24 19:42> Critical Care Time Critical Care Time Critical Care Time: Yes <Hernesto Hicks MD - Last Filed: 03/11/24 19:42> Total Critical Care Time: 35 <Hernesto Hicks MD - Last Filed: 03/11/24 19:42> Discharge Plan Discharge Clinical Impression: COPD (chronic obstructive pulmonary disease) <Lupe Salazar APRN - Last Filed: 03/13/24 21:46> Patient Disposition: Still a Patient <Lupe Salazar APRN - Last Filed: 03/13/24 21:46> Condition: Stable <Lupe Salazar APRN - Last Filed: 03/13/24 21:46>
[2024-03-11 14:35] LABS: Basophils Percent Auto 0.6 % (0.2-1.2); Eosinophils Absolute Auto 0.2 K/mm3 (0-0.3); Eosinophils Percent Auto 4.2 % (0-4.4); Hemoglobin 7.3 g/dL (12.0-15.0); Immature Granulocyte Absolute 0.04 K/mm3 (0.00-0.031); Immature Granulocyte Percent A 0.8 % (0-0.5); Lymphocytes Absolute Auto 0.65 K/mm3 (0.9-3.2); Lymphocytes Percent Auto 13.1 % (18.3-44.2); Mean Corpuscular HGB Conc 29.2 g/dl (32-36); Mean Corpuscular Hemoglobin 31.7 pg (26-34); Mean Corpuscular Volume 108.7 fl (80-100); Mean Platelet Volume 9.7 fl (7.4-10.4); Monocytes Absolute Auto 0.3 K/mm3 (0.1-0.6); Monocytes Percent Auto 6.8 % (2.6-8.5); Neutrophils Absolute Auto 3.7 K/mm3 (1.3-6.7); Neutrophils Percent Auto 74.5 % (45.5-73.1); Platelet Count Result 220 k/mm3 (150-375); Red Cell Distribution Width 14.3 % (11.5-14.5)
[2024-03-11 14:47] LABS: INR 0.9; Partial Thromboplastin Time 20.8 Seconds (22.3-36.8); Prothrombin Time 13.1 Seconds (11.1-14.7)
[2024-03-11 14:51] LABS: Chloride 99 mmol/L (98-107); Potassium 4.5 mmol/L (3.4-5.0)
[2024-03-11 14:52] LABS: D Dimer 0.31 ug/mL (<0.48)
[2024-03-11 15:02] LABS: Platelet Estimate Adequate (Adequate)
[2024-03-11 15:03] LABS: Hypochromasia 1+; Macrocytosis 2+ (NORMAL); Schistocytes None Seen
[2024-03-11 15:04] LABS: Alanine Aminotransferase 15 U/L (6-35); Albumin Level 3.6 g/dL (3.5-5.1); Alkaline Phosphatase 83 U/L (38-126); Anion Gap 4 mmol/L (4-12); Anisocytosis 2+; Aspartate Amino Transferase 28 U/L (14-36); Bilirubin,Total 0.3 mg/dL (0.2-1.3); Blood Urea Nitrogen 18 mg/dL (7-17); Calcium 10.4 mg/dL (8.4-10.2); Carbon Dioxide 39 mmol/L (22-30); Estimated CRCL calculation 45 ml/min; Estimated Glomerular Filt Rate > 60; Glucose 92 mg/dL (65-110); Magnesium 2.4 mg/dL (1.6-2.3); Sodium 142 mmol/L (137-145); Troponin I < 0.012 ng/mL (0.000-0.034)
[2024-03-11 15:14] LABS: Influenza A QL RT-PCR Negative (Negative); Influenza B QL RT-PCR Negative (Negative); RSV RNA, RT-PCR Negative (Negative); SARS-CoV-2 RNA PCR Negative (Negative)
[2024-03-11] MEDS: IPRATROPIUM 0.5 MG/ALBUTEROL SULFATE 2.5 MG AMPUL.NEB 3 ML INHALATION ×4 (15:15→21:30)
--- OUTSIDE RECORDS SUMMARY | 2024-03-11 16:40 | XMS_ITS | Encounter Summary ---
Author Organization [facility] Address [address] [place] [address] Care Team Providers Care Key Filer Name Role Phone Bernadette Cedillo MD Primary Care Provider [phone] Encounter Details Date Type Department Care Team (Late Contact Info) Description 07/29/2019 Chart Note [facility] Radiation Therapy [address] [place] [address] [place] [address] [place] [address] Social History Tobacco Use Types Packs/Day Years Used Date Smoking Tobacco: Every Day Cigarettes 1 55 Smokeless Tobacco: Never Alcohol Use Standard Drinks/Week Comments No 0 (1 standard drink = 0.6 oz pur e alcohol) Comments No Sex and Gender Information Value Date Recorded Sex Assigned at Not on file Legal Sex Female 2:13 PM PIGMENT SUPPLIER Gender Identity Not on file Sexual Orientation [...] st Contact Info) Description 03/19/2024 9:15 AM PIGMENT SUPPLIER Office Visit [facility] Oncology and Hematology - [place] [address] [facility] [address] [place] [address] David Michaud MD [address] [facility] [address] [place] [address] documented as of this encounter Visit Diagnoses Not on filedocumented in this encounter Care Teams Key Filer Relationship Specialty Start Date End Date Bernadette Cedillo MD [address] [place] [address] PCP - General Family Practice 06/30/22 documented as of this encounter
--- OUTSIDE RECORDS SUMMARY | 2024-03-11 16:40 | XMS_ITS | Clinical Summary ---
Author Organization [facility] Address [address] [facility] [address] [place] [address] Care Team Providers Care Transonic Engineer Name Role Phone Kennedi Salcedo MD Primary Care Provider [phone] Bernadette Cedillo MD Unavailable David Michaud MD Unavailable [phone] Allergies Active Allergy Reactions Criticality Noted [...] Noted Date Diagnosed Date Acute respiratory failure ([facility]) 02/13 Non-small cell cancer of left lung ([facility]) 07/12/2019 Other osteoporosis without current pathological fracture 02/18/2019 Malignant neoplasm of overla pping 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, estrogen receptor positive ([facility]) 03/12/2018 Social History Tobacco Use Types Packs/Day [...] often do you attend chur ch or baptism services? 1 to 4 times per year 02/23/2020 Do you belong to any clubs o r organizations such as tenriism groups, unions, fraternal or athletic groups, or [...] and heating? Not hard at all 02/23/2020 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 Legal Sex Female 5:19 PM CDT Gender Identity Female 02/23/2020 11:09 PM AUTO SERVICE INSTRUCTOR Sexual Orientation Straight 02/23/2020 11 :09 PM AUTO SERVICE INSTRUCTOR Last Filed Vital Signs Vital Sign Reading [...] VE NON-REACTI VE 10/19/2016 6:25 PM CDT [facility] Comment: ??TESTING PERFORMED [facility] [place] [address] SERUM OR PLASMA SPECIMEN / Unknown 10/19/2016 9:12 AM CDT 10/19/2016 9:22 AM CDT us Generic Conversion Md [facility] Final R esult [facility] [address] [place] [address], [place] [phone] from Last 3 Months or Most Recently Relevant to Health Maintenance Insurance [employer] MEDICARE [facility] Advance Directives Documents on File Type Date Recorded 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
--- OUTSIDE RECORDS SUMMARY | 2024-03-11 16:40 | XMS_ITS | Referral Summary ---
Author Organization [facility] Address [address] [place] [address] Care Team Providers Care Steward/Stewardess Name Role Phone Hernesto Joshi MD Primary Care Provider [phone] Allergies Active Allergy Reactions Criticality Noted Date [...] 1 tablet by mouth daily Active vitamins A,C,H-jwcv-ktogut (ICAPS) 4,296 mcg-226 mg-90 mg capsule Take [...] on chronic respiratory failure with hypoxi a ([facility]) 11/22/2023 COPD exacerbation 11/22/2023 Non-small cell lung cancer 11/22/2023 HTN (hypertension) 11/22/2023 COVID 11/22/2023 Other specified anemias 11/22/2023 Social History Tobacco Use Types Packs/Day Years Used Date Smoking Tobacco: Every Day Cigarettes 0.5 50.3 Started: 11/21/1973 Tobacco Cessation:Ready to Q uit: No; Counseling Given: Not Answered Comments:0.5ppd x 50 years [facility] Utilities Answer Date Recorded In the past 12 months has ideeli, gas, oil, or water [employer] threatened to shut off services in your [...] often do you attend chur ch or mandaeism services? 1 to 4 times per year 11/22/2023 Do you belong to any clubs o r organizations such as advent groups, unions, fraternal or athletic groups, or [...] any time in the past 12 m [facility], were you homeless or living in a jail (including now)? No 11/22/2023 Personal Safety Answer Date Recorded Have you ever been in or are you currently in a harmful physical or emotional relationship or is someone making you feel afraid or unsafe? 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 Gender Identity Female 11/22/2023 9:01 AM CDT [...] Not on file Insurance MEDICARE RAILROAD [facility]UAL [facility] Advance Directives For more information, please contact: [phone] Documents on File Type Date Recorded Patient Tub Chucker Expl anation ADVANCE DIRECTIVE 11/27/2023 12:53 PM Pow er of Mill Representative-Medical * LIMITED - No CPR (Latest Code Status on File) Date Activated Date Inactivated Comments 11/22/2023 1:02 AM 11/25/2023 8:45 PM Care Teams Steward/Stewardess Relationship Specialty Start Date End Date Hernesto Joshi MD [address] [place] [address] PCP - General 06/22/16
--- OUTSIDE RECORDS SUMMARY | 2024-03-11 16:40 | XMS_ITS | Clinical Summary ---
Author Organization [facility] Address [address] [place] [address] Care Team Providers Care Svp Of Digital Name Role Phone Hernesto Joshi MD Primary Care Provider [phone] Allergies Active Allergy Reactions Criticality Noted Date [...] 1 tablet by mouth daily Active vitamins A,C,B-gngf-rvayzf (ICAPS) 4,296 mcg-226 mg-90 mg capsule Take [...] on chronic respiratory failure with hypoxi a ([facility]) 11/22/2023 COPD exacerbation 11/22/2023 Non-small [...] Given: Not Answered Comments:0.5ppd x 50 years [employer] Utilities Answer Date Recorded In the past 12 months has [place], gas, oil, or water [employer] threatened to shut off services in your [...] often do you attend chur ch or rastafari services? 1 to 4 times per year 11/22/2023 Do you belong to any clubs o r organizations such as latter-day groups, unions, fraternal or athletic groups, or [...] were you homeless or living in a [facility] (including now)? No 11/22/2023 Personal Safety Answer Date Recorded Have you ever been in or are you currently in a harmful physical or emotional relationship or is someone making you feel afraid or unsafe? 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
--- OUTSIDE RECORDS SUMMARY | 2024-03-11 16:40 | XMS_ITS | Clinical Summary ---
Author Organization [facility] [place] Address [address] [place] [address] Care Team Providers Care Armhole Sewer Name Role Phone Bernadette Cedillo MD Primary Care Provider [phone] Allergies Active Allergy Reactions Criticality Noted Date [...] STL ABSTRACTION Provider, Abstract 03/04/2024 Orders Only [facility] Oncology and Hematology - [address] [place] [address] David Michaud MD 02/27/2024 External Device Data STL ABSTRACTION Provider, Abstract 02/27/2024 Orders Only [facility] Oncology and Hematology - [place] [address] [place] [address] David Michaud MD 02/26/2024 Orders Only [facility] Oncology and Hematology - [place] [address] [place] [address] David Michaud MD Malignant 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, estrogen receptor positive (CMS/HCC) 02/21/2024 Orders Only [facility] Oncology and Hematology - [place] [address] [place] [address] David Michaud MD 02/12/2024 Orders Only [facility] Oncology and Hematology - [address] [phone] David Michaud MD Malignant 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, estrogen receptor positive (CMS/HCC) 01/30/2024 Orders Only [facility] Oncology and Hematology - [address] David Michaud MD 01/29/2024 Orders Only [facility] Oncology and Hematology - [address] [phone] David Michaud MD Malignant 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, estrogen receptor positive (CMS/HCC) 01/16/2024 Orders Only [facility] Oncology and Hematology - [address] David Michaud MD 01/15/2024 Orders Only [facility] Oncology and Hematology - [address] David Michaud MD Malignant 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, estrogen receptor positive (CMS/HCC) (Primary Dx) 01/08/2024 Orders Only [facility] Oncology and Hematology - [address] [phone] David Michaud MD Malignant 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, estrogen receptor positive (CMS/HCC) 01/01/2024 Orders Only [facility] Oncology and Hematology - [address] David Michaud MD 12/25/2023 Orders Only [facility] Oncology and Hematology - [address] David Michaud MD Malignant 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, estrogen receptor positive (CMS/HCC) 12/15/2023 Orders Only [facility] Oncology and Hematology - [address] [place] [address] David Michaud MD 12/11/2023 Orders Only [facility] Oncology and Hematology [facility] [address] [place] [address] David Michaud MD Malignant neoplasm [...] on file Legal Sex Female 2:13 PM VALVE INSPECTOR Gender Identity Not on file Sexual Orientation [...] st Contact Info) Description 03/19/2024 9:15 AM VALVE INSPECTOR Office Visit [facility] Oncology and Hematology [facility] [address] [place] [address] David Michaud MD [address] [facility] [address] [place] [address] Health Maintenance Due Date Last [...] Diagnosis Comments CREATININE Routine 03/04/2024 11:[address] CHEST W CONTRAST Routine 03/04/2024 10:06 AM VALVE INSPECTOR CBC WITH DIFFERENTIAL Routine 02/26/2024 12:16 PM VALVE INSPECTOR CBC WITH DIFFERENTIAL Routine 02/12/2024 1:48 PM VALVE INSPECTOR CBC WITH DIFFERENTIAL Routine 01/29/2024 11:25 AM VALVE INSPECTOR CBC WITH DIFFERENTIAL Routine 01/15/2024 10:35 AM VALVE INSPECTOR CBC WITH DIFFERENTIAL Routine 12/29/2023 4:18 PM VALVE INSPECTOR CBC WITH DIFFERENTIAL Routine 12/15/2023 11:10 AM CDT from Last 3 Months Results * CREATININE (03/04/2024 11:12 AM VALVE INSPECTOR) Blood us David Michaud MD CHEMISTRY ORDERABLES Final Resu lt * CT CHEST W CONTRAST (03/04/2024 10:06 AM VALVE INSPECTOR) Anatomical Region Laterality Modality Chest Other us David Michaud MD CT ORDERABLES Final Result * CBC WITH DIFFERENTIAL (02/26/2024 12:16 PM VALVE INSPECTOR) Only the most recent of6 resultswithin the time period is included. Blood us David Michaud MD HEMATOLOGY ORDERABLES Final Res ult from Last 3 Months Insurance [facility] OF [facility] [employer] OF [place] MEDICARE [facility] RX [facility] Medicare Part D RX PHARMACY PANTOMIMIST, [employer] Commercial Care Teams Armhole Sewer Relationship Specialty Start Date End Date Bernadette Cedillo MD [address] [place] [address] PCP - General Family Practice 06/30/22
--- OUTSIDE RECORDS SUMMARY | 2024-03-11 16:40 | XMS_ITS | Referral Summary ---
Author Organization [facility] Address [address] [place] [address] Care Team Providers Care Bulk Sugar Handler Name Role Phone Bernadette Cedillo MD Primary Care Provider [phone] Source Comments [facility],non-owned Affiliates and Associated Physician Practices is amultiple site organization consisting of ambulatory clinics and hospital sitesin [place], [place], [place] and [place]. This disclosure is being madepursuant to the Care Everywhere program and may not contain all information available regarding this patient. Last updated 17.[facility] [employer] Social History Tobacco Use Types Packs/Day Years Used Date Smoking Tobacco: Never Assessed Sex and Gender Information Value Date Recorded Sex Assigned at Not on file Gender Identity Not on file Sexual Orientation Not on file Plan of Treatment Not on file Care Teams Bulk Sugar Handler Relationship Specialty Start Date End Date Bernadette Cedillo MD [address] [place] [address] [facility] - General 06/22/21
--- OUTSIDE RECORDS SUMMARY | 2024-03-11 16:40 | XMS_ITS | Encounter Summary ---
Author Organization [facility] Address [address] [place] [address] Care Team Providers Care Jailer/Training Officer Name Role Phone Bernadette Cedillo MD Primary Care Provider [phone] Encounter Details Date Type Department Care Team (Late st Contact Info) Description 11/10/2022 Lab Requisition [facility] - Pathology Lab [address] [place] [address] oRcco Roblero MD [address] [address] Anemia, unspecified Social History Tobacco [...] AM CDT) Case Report Flow Cytometry ?Case: [id number] ? Authorizing Provider: ??Rocco Roblero MD ?Collected: ? 11/10/2022 09:00 AM ? Ordering Location: ? [facility] Pathology Lab ? Received: ?11/10/2022 11:47 AM ? Pathologist: ? Flaco Dejesus MD ? Specimen: ?Bone Marrow ? 11/10/2022 1:57 PM CDT [facility] PATHOLOGY LAB Final Diagnosis Bone marrow, flow cytometric immunophenotypic analysis: - no clonal B-cell population or increase in blasts - small population of myeloid blasts (3% of events) and of hematogones (2%) identified - see interpretation 11/10/2022 1:57 PM [facility] PATHOLOGY LAB Flow Cytometry Interpretation Viability: 86% Barrett: lymphocytes 10%, dimCD45 12%, granulocytes 72%, monocytes 5%. Lymphocytes: - B-cells (16% of lymphocyte gate): polytypic by [place] Light:lambda light chain expression (K:L 2:1) - T-cells (94%): no immunophenotypic aberrancy detected Dim CD45 gate: - Blasts: detected, 3% of all events, express CD34, CD13, CD33 with organ tuner electronic pattern of maturation - Hematogones: detected, 2% of all events, CD19 and CD10 A bone marrow aspirate smear prepared from the flow cytometry specimen has been reviewed for quality review trainer purposes. 11/10/2022 1:57 PM [facility] PATHOLOGY LAB Flow Cytometry Results Differential Result Comment Flow Cell Count /uL 84,000 Total Viability % 86.0 Lymphocytes % 10 Dim CD45 Region % 12 Monocytes % 5 Granulocytes % 72 11/10/2022 1:57 PM CDT [facility] Reason for test Anemia, unspecified 285.9 11/10/2022 1:57 PM CDT [facility] Client Specimen ID # [id number] 11/10/2022 1:57 PM CDT [facility] PATHOLOGY LAB Number of markers 10 were performed. A-2 Flow CD10 A-3 Flow CD13 A-5 Flow CD20 A-1 Flow CD5 A-4 Flow CD19 A-6 Flow CD33 A-7 Flow CD34 A-8 Flow CD45 A-9 [place]+CD19+ A-10 Lambda+CD19+ 11/10/2022 1:57 PM CDT [facility] Pathologist Location at [facility] 11/10/2022 1:57 PM CDT [facility] PATH[facility] LAB Disclaimer Test performed at [facility], [address] [place] [address], [facility]. The established laboratory minimum viability is 70%. [...] complexity clinical testing. 11/10/2022 1:57 PM CDT [facility] PATHOLOGY LAB Embedded Images 1:57 PM CDT [facility] PATHOLOGY LAB Pathology/Cytolo gy BONE MARROW SPECIMEN / Unknown 11/10/2022 9:00 AM CDT 11/10/2022 11:47 AM CDT Rocco Roblero MD LAB - PATHOLOGY/CYTO LOGY ORDERABLES [facility] PATHOLOGY LAB [address] [place] [address]. [address] [phone] documented in this encounter Visit Diagnoses Diagnosis Anemia, unspecified documented in this encounter Care Teams Jailer/Training Officer Relationship Specialty Start Date End Date Bernadette Cedillo MD [address] [place] [address] PCP - General 06/22/21 documented as of this encounter
--- OUTSIDE RECORDS SUMMARY | 2024-03-11 16:40 | XMS_ITS | Encounter Summary ---
Author Organization [facility] [employer] Address [address] [place] [address] Care Team Providers Care Scalp Specialist Name Role Phone Bernadette Cedillo MD Primary Care Provider [phone] Encounter Details Date Type Department Care Team ([facility] Contact Info) Description 06/10/2022 Abstract [facility] Oncology and Hematology - [address] [place] [address] Greg Barrow RN Social History Tobacco Use Types Packs/Day Years Used Date Smoking Tobacco: Every Day Cigarettes 1 55 Smokeless Tobacco: Never Alcohol Use Standard Drinks/Week Comments No 0 (1 standard drink = 0.6 oz pur e alcohol) Comments No Sex and Gender Information Value Date Recorded Sex Assigned at Not on file Legal Sex Female 2:13 PM ADULT REMEDIAL EDUCATION INSTRUCTOR Gender Identity Not on file Sexual Orientation Not on file COVID-19 Exposure Response Date Recorded In the last 10 days, have yo u been in contact with someone who was confirmed or suspected to have Coronavirus/COVID-19? No / Unsure 06/02/2022 1:16 PM CDT documented as of this encounter Plan of Treatment Upcoming Encounters Date Type Department Care Team ([facility] Contact Info) Description 03/19/2024 9:15 AM ADULT REMEDIAL EDUCATION INSTRUCTOR Office Visit [facility] Oncology and Hematology - [address] [place] [address] David Michaud MD [address] [facility] [address] [place] [address] documented as of this encounter Visit Diagnoses Not on filedocumented in this encounter Care Teams Scalp Specialist Relationship Specialty Start Date End Date Bernadette Cedillo MD [address] [place] [address] PCP - General Family Practice 06/30/22 documented as of this encounter
--- OUTSIDE RECORDS SUMMARY | 2024-03-11 16:40 | XMS_ITS | Encounter Summary ---
Author Organization [facility] Address [address] [place] [address] Care Team Providers Care Curator Of Manuscripts Name Role Phone Bernadette Cedillo MD Primary Care Provider [phone] Encounter Details Date Type Department Care Team (Late st Contact Info) Description 11/14/2022 Lab Requisition [facility] - Pathology Lab [address] [place] [address] Rocco Roblero MD [address] [place] [address] Illness, unspecified Social History Tobacco Use [...] Report Bone Marrow Patholog y Report ?Case: [id number] ? Authorizing Provider: ??Rocco Roblero MD ?Collected: ? 11/10/2022 09:00 AM ? Ordering Location: ? [facility] Pathology Lab ? Received: ?11/14/2022 09:45 AM ? Pathologist: ? Rona Smith MD ? Specimens: ?? A) - Bone Marrow Clot ? B) - Bone Marrow Core ? 11/14/2022 10:58 AM [facility] PATHOLOGY LAB Final Diagnosis Bone marrow, aspirate, clot section, and core biopsy: - Normocellular marrow with maturing trilineage hematopoiesis - Decreased storage iron - No evidence of lymphoma or high-grade myeloid neoplasm - See description. Peripheral blood smear: - Macrocytic anemia - See description 11/14/2022 10:58 AM [facility] PATHOLOGY LAB Comment Overall, the bone marrow specimen is normocellular for age with maturing trilineage hematopoiesis and no evidence of lymphoma, a high-grade myeloid neoplasm, or significant dyspoiesis. Storage iron is decreased. Correlation with clinical findings and relevant cytogenetic/molecular testing is required. 11/14/2022 10:58 AM [facility] PATHOLOGY LAB Peripheral Smear Description CBC Data: WBC - 7.9, Hgb - 8.3, MCV - 105.6, MCHC - 31, and Platelets - 172. Leukocyte number: normal. Granulocyte morphology: normal. Lymphocyte morphology: normal. Erythrocyte number: decreased. Erythrocyte morphology: macrocytic. Anisopoikilocytosis: mild. Polychromasia: mild. Platelet number: normal. Platelet morphology: normal. 11/14/2022 10:58 AM [facility] PATHOLOGY LAB Bone Marrow Aspirate Differential [...] Control is appropriately reactive. 11/14/2022 10:58 AM [facility] PATHOLOG[facility] Bone Marrow Core Biopsy [...] (by special stain): decreased. 11/14/2022 10:58 AM [facility] PATHOLOG[facility] LAB Flow Cytometry Summary Concurrent flow cytometry ([id number]) shows no clonal B-cell population or increase in blasts. 11/14/2022 10:58 AM [facility] PATHOLOGY LAB Clinical History 77 year old woman with chronic anemia. 11/14/2022 10:58 AM [facility] PATHOLOGY LAB Materials Received Received are 20 slides and 3 blocks labeled [id number] along with a copy of the outside pathology report. The materials originate from [place] [address]. All original materials are returned to the referring institution, along with a copy of our final report. 11/14/2022 10:58 AM [facility] PATHOLOGY LAB Pathologist Location at [facility] 11/14/2022 10:[address] [facility] PATHOLOGY LAB Disclaimer The performance characteristics of all immunohistochemical and indirect immunofluorescence stains (if any) cited in this report were determined by the Histopathology Laboratory of [facility]. Some of these tests were [...] - PATHOLOGY/CYTO LOGY ORDERABLES Performing Organization Address City/State/[facility] Co de Phone Number [facility] PATHOLOGY LAB [address] [phone] documented in this encounter Visit Diagnoses Diagnosis Illness, unspecified documented in this encounter Care Teams Curator Of Manuscripts Relationship Specialty Start Date End Date Bernadette Cedillo MD [address] [place] [address] PCP - General 06/22/21 documented as of this encounter
--- OUTSIDE RECORDS SUMMARY | 2024-03-11 16:40 | XMS_ITS | Encounter Summary ---
Author Organization [facility] [employer] Address [address] [place] [address] Care Team Providers Care Bell Spinner Sousaphones Name Role Phone Bernadette Cedillo MD Primary Care Provider [phone] Encounter Details Date Type Department Care Team (Late Contact Info) Description 01/23/2023 Abstract [facility] Oncology and Hematology - [address] [place] [address] Colette Cage, STEVE Social History Tobacco Use Types Packs/Day Years Used Date Smoking Tobacco: Every Day Cigarettes 1 55 Smokeless Tobacco: Never Alcohol Use Standard Drinks/Week Comments No 0 (1 standard drink = 0.6 oz pur e alcohol) Comments No Sex and Gender Information Value Date Recorded Sex Assigned at Not on file Legal Sex Female 2:13 PM MEDICAL EQUIPMENT TECHNICIAN Gender Identity Not on file Sexual Orientation Not on file documented as of this encounter Plan of Treatment Upcoming Encounters Date Type Department Care Team (Late Contact Info) Description 03/19/2024 9:15 AM MEDICAL EQUIPMENT TECHNICIAN Office Visit [facility] Oncology and Hematology - [address] [place] [address] David Michaud MD [address] [facility] [address] [place] [address] documented as of this encounter Visit Diagnoses Not on filedocumented in this encounter Care Teams Bell Spinner Sousaphones Relationship Specialty Start Date End Date Bernadette Cedillo MD [address] [place] [address] PCP - General Family Practice 06/30/22 documented as of this encounter
--- OUTSIDE RECORDS SUMMARY | 2024-03-11 16:40 | XMS_ITS | Patient Health Summary ---
Author Organization [facility] Address [address] [place] [address] Care Team Providers Care Industrial Real Estate Agent Name Role Phone Bernadette Cedillo MD Primary Care Provider [phone] Note from [facility],non-owned Affiliates and Associated Physician Practices is amultiple site organization consisting of ambulatory clinics and hospital sitesin [place] and [place]. This disclosure is being madepursuant to the Care Everywhere program and may not contain all information available regarding this patient. Last updated 17.[facility] Social History Tobacco Use Types Packs/Day [...] AM CDT) Case Report Flow Cytometry ?Case: [id number] ? Authorizing Provider: ??Rocco Roblero MD ?Collected: ? 11/10/2022 09:00 AM ? Ordering Location: ? [facility] Care Pathology Lab ? Received: ?11/10/2022 11:47 AM ? Pathologist: ? Flaco Dejesus MD ? Specimen: ?Bone Marrow ? 11/10/2022 1:57 PM [facility] PATHOLOGY LAB Final Diagnosis Bone marrow, flow cytometric immunophenotypic analysis: - no clonal B-cell population or increase in blasts - small population of myeloid blasts (3% of events) and of hematogones (2%) identified - see interpretation 11/10/2022 1:57 PM [facility] PATHOLOGY [facility] Flow Cytometry Interpretation Viability: 86% Barrett: lymphocytes 10%, dimCD45 12%, granulocytes 72%, monocytes 5%. Lymphocytes: - B-cells (16% of lymphocyte gate): polytypic by Surfside:lambda light chain expression (K:L 2:1) - T-cells (94%): no immunophenotypic aberrancy detected Dim CD45 gate: - Blasts: detected, 3% of all events, express CD34, CD13, CD33 with button decorating machine operator pattern of maturation - Hematogones: detected, 2% of all events, CD19 and CD10 A bone marrow aspirate smear prepared from the flow cytometry specimen has been reviewed for software quality automation engineer purposes. 11/10/2022 1:57 PM [facility] PATHOLOG[facility] Flow Cytometry Results Differential Result Comment Flow Cell Count /uL 84,000 Total Viability % 86.0 Lymphocytes % 10 Dim CD45 Region % 12 Monocytes % 5 Granulocytes % 72 11/10/2022 1:57 PM [facility] PATH[facility] Reason for test Anemia, unspecified 285.9 11/10/2022 1:57 PM CDT [facility] PATHOLOGY LAB Client Specimen ID # [id number] 11/10/2022 1:57 PM CDT [facility] PATHOLOGY LAB Number of markers 10 were performed. A-2 Flow CD10 A-3 Flow CD13 A-5 Flow CD20 A-1 Flow CD5 A-4 Flow CD19 A-6 Flow CD33 A-7 Flow CD34 A-8 Flow CD45 A-9 Surfside+CD19+ A-10 Lambda+CD19+ 11/10/2022 1:57 PM CDT [facility] PATHOLOGY LAB Pathologist Location at [facility] 11/10/2022 1:57 PM CDT [facility] PATHOLOGY LAB Disclaimer Test performed at [facility], [address] [place] [address], [facility]. The established laboratory minimum viability is [...] [facility] PATHOLOGY LAB [address] [place] [address]. [place] [address], [facility] [phone] * BONE MARROW BIOPSY (STL) (11/10/2022 9:00 AM CDT) Case Report Bone Marrow Patholog y Report ?Case: [id number] ? Authorizing Provider: ??Rocco Roblero MD ?Collected: ? 11/10/2022 09:00 AM ? Ordering Location: ? [facility] Pathology Lab ? Received: ?11/14/2022 09:45 AM ? Pathologist: ? Rona Smith MD ? Specimens: ?? A) - Bone Marrow Clot ? B) - Bone Marrow Core ? 11/14/2022 10:58 AM CDT [facility] PATHOLOGY LAB Final Diagnosis Bone marrow, aspirate, clot section, and core biopsy: - Normocellular marrow with maturing trilineage hematopoiesis - Decreased storage iron - No evidence of lymphoma or high-grade myeloid neoplasm - See description. Peripheral blood smear: - Macrocytic anemia - See description 11/14/2022 10:58 AM CDT [facility] PATHOLOG[facility] Comment Overall, the bone marrow specimen is normocellular for age with maturing trilineage hematopoiesis and no evidence of lymphoma, a high-grade myeloid neoplasm, or significant dyspoiesis. Storage iron is decreased. Correlation with clinical findings and relevant cytogenetic/molecular testing is required. 11/14/2022 10:58 AM [facility] PATH[facility] Peripheral Smear Description CBC Data: WBC - 7.9, Hgb - 8.3, MCV - 105.6, MCHC - 31, and Platelets - 172. Leukocyte number: normal. Granulocyte morphology: normal. Lymphocyte morphology: normal. Erythrocyte number: decreased. Erythrocyte morphology: macrocytic. Anisopoikilocytosis: mild. Polychromasia: mild. Platelet number: normal. Platelet morphology: normal. 11/14/2022 10:58 AM [facility] PATHOLOG[facility] Bone Marrow Aspirate Differential [...] Control is appropriately reactive. 11/14/2022 10:58 AM [facility] PATH[facility] Bone Marrow Core Biopsy [...] (by special stain): decreased. 11/14/2022 10:58 AM [facility] PATH[facility] Flow Cytometry Summary Concurrent flow cytometry ([id number]) shows no clonal B-cell population or increase in blasts. 11/14/2022 10:58 AM [facility] PATHOLOG[facility] LAB Clinical History 77 year old woman with chronic anemia. 11/14/2022 10:58 AM [facility] PATHOLOG[facility] Materials Received Received are 20 slides and 3 blocks labeled [id number] along with a copy of the outside pathology report. The materials originate from [address] [place] [address]. All original materials are returned to the referring institution, along with a copy of our final report. 11/14/2022 10:58 AM CDT [facility] Pathologist Location at [facility] 11/14/2022 10:58 AM CDT [facility] PATHOLOG[facility] LAB Disclaimer The performance characteristics of all immunohistochemical and indirect immunofluorescence stains (if any) cited in this report were determined by the Histopathology Laboratory of [facility]. Some of these tests were developed [...] attending (teaching) pathologist. 11/14/2022 10:58 AM CDT [facility] PATHOLOGY LAB Embedded Images 11/14/2022 10:58 AM CDT [facility] PATHOLOGY LAB Pathology/Cytology BONE MARROW SPECIMEN / Unknown 11/10/2022 9:00 AM CDT 11/14/2022 9:45 AM CDT Miscellaneous samples (specimen) BONE MARROW SPECIMEN / Unknown 11/10/2022 9:00 AM CDT 11/14/2022 9:59 AM CDT Rocco Roblero MD LAB - PATHOLOGY/CYTO LOGY ORDERABLES Performing Organization Address City/State/[facility] Co de Phone Number [facility] PATHOLOGY LAB [address] [phone] Care Teams Industrial Real Estate Agent Relationship Specialty Start Date End Date Bernadette Cedillo MD [address] [place] [address] PCP - General 06/22/21
--- OUTSIDE RECORDS SUMMARY | 2024-03-11 16:40 | XMS_ITS | Encounter Summary ---
Author Organization [facility] Address [address] [place] [address] Care Team Providers Care Make Up Artist Name Role Phone Bernadette Cedillo MD Primary Care Provider [phone] Encounter Details Date Type Department Care Team (Late st Contact Info) Description 11/14/2022 Lab Requisition [facility] - Pathology Lab [address] [place] [address] Rocco Roblero MD [address] [address] Illness, unspecified Social History Tobacco [...] unspecified documented in this encounter Care Teams Make Up Artist Relationship Specialty Start Date End Date Bernadette Cedillo MD [address] [place] [address] PCP - General 06/22/21 documented as of this encounter
--- OUTSIDE RECORDS SUMMARY | 2024-03-11 16:40 | XMS_ITS | Clinical Summary ---
Author Organization [facility] Address [address] [place] [address] Care Team Providers Care Steam Tank Operator Name Role Phone Bernadette Cedillo MD Primary Care Provider [phone] Source Comments [facility],non-owned Affiliates and Associated Physician Practices is amultiple site organization consisting of ambulatory clinics and hospital sitesin [place], [place], [place] and [place]. This disclosure is being madepursuant to the Care Everywhere program and may not contain all information available regarding this patient. Last updated 17.[facility] Social History Tobacco Use Types Packs/Day Years [...] age to complete this topic Care Teams Steam Tank Operator Relationship Specialty Start Date End Date Bernadette Cedillo MD [address] [place] [address] PCP - General 06/22/21
[2024-03-11] MEDS: methylPREDNISolone SOD SUCC 125 MG VIAL IV PUSH (17:11)
[2024-03-11] MEDS: MAGNESIUM SULF 2 GM/WATER 50ML 2 GM/50 ML BAG IVPB (17:13)
[2024-03-11] MEDS: IPRATROPIUM 0.5 MG/ALBUTEROL SULFATE 2.5 MG AMPUL.NEB 3 ML 12 ML INHALATION (18:11)
[2024-03-11 18:19] LABS: Alveolar/Arterial O2 Gradient 469.4 mmHg; Base Excess ABG 9.6 mEq/l (+/-2.0); Fractional Inspired Oxygen 100 %; HCO3 ABG 37.3 mEq/l (22.0-26.0); Oxygen Content ABG 10.6 %vol (16.0-22.0); Oxygen Saturation ABG 98.9 % (95.0-100.0); Oxyhemoglobin 96.4 % THb (90.0-100.0); PO2 ABG 166.8 mmHg (80.0-100.0); PO2 FiO2 Ratio Arterial Blood 1.67 %; pH ABG 7.304 (7.350-7.450)
[2024-03-11 18:24] LABS: Device NON-REBREATHER MASK; PCO2 ABG 76.8 mmHg (35.0-45.0); Site Drawn RIGHT RADIAL; Total Hemoglobin 7.5 g/dL (12.0-18.0)
[2024-03-11] MEDS: DOXYCYCLINE 100 MG/NS 100 ML 100 MG/100 ML BAG IVPB (20:16)
--- NOTE | 2024-03-11 20:52 | P.HP_ITS ---
H&P: HPI History of Present Illness Date/Time: 03/11/24 20:52 Chief Complaint: Shortness of breath Narrative: This is a 78-year-old female with past medical history significant for COPD, tobacco dependence, chronic hypoxic respiratory failure, lung CA. Patient was brought to the emergency room due to worsening shortness of breath, low pulse oxygenation at home. History has been obtained upon reviewing medical records and from son who is at bedside. Patient required BiPAP. Admitted for further evaluation management and treatment. CHEST RADIOGRAPH, PA AND LATERAL CLINICAL HISTORY: shortness of breath . COMPARISON: Reference is made to a CT examination of the chest dated 03/04/2024. TECHNIQUE: PA and lateral views of the chest. FINDINGS The cardiomediastinal silhouette is enlarged, unchanged. Redemonstration of a right upper lobe mass, consistent with patient's history. Hazy opacification of the left hemidiaphragm, findings suggesting a small left- sided pleural effusion. Remainder of the lungs are clear. IMPRESSION: Right apical lung mass left-sided pleural effusion, as detailed EXAMINATION: CTA chest PE protocol DATE: 03/11/2024 18:00 INDICATION: Hypoxia. TECHNIQUE: Computed tomography angiography (CTA) of the chest was performed with 100 mL Omnipaque-350 intravenous contrast timed to evaluate the pulmonary arteries. Coronal maximum intensity projection 3D-reconstructions were created by the technologist. Automated exposure control and iterative reconstruction technique were employed. The dose-length product was 485.98 mGy-cm. COMPARISON: Chest CT 03/04/2024, 01/16/24, 08/14/23, 01/18/23 FINDINGS: There is mild elevation of left hemidiaphragm. There are changes of wedge resection in right lung upper lobe. There is a 13 mm nodule in right upper lobe. There is a 14 mm nodule in right upper lobe. There is a 10 mm nodule in right lower lobe. There is a 5 mm nodule in left upper lobe. There is a 18 mm nodule in lingula. There is mild atelectasis bilaterally. No pleural effusion. The heart size is normal. No pericardial effusion. There is no pulmonary embolus. There is a 4.1 cm cyst in the spleen. There is a 3.7 cm cyst in left kidney. There are old fractures multiple left rib fractures. There is severe cervical and thoracic spondylosis. There is a mixed lytic and sclerotic lesion in L1 vertebral body. IMPRESSION: 1. No pulmonary embolus. 2. Pulmonary nodules with worsening from 01/16/2024, consistent with metastatic disease. 3. Bone lesion in L1, stable from 01/18/23, suspicious for metastatic disease. 4. Mild emphysema. EXAMINATION: US soft tissue chest DATE: 03/11/2024 17:46 INDICATION: Hypoxia. TECHNIQUE: Multiple grayscale ultrasound images of the chest were obtained. COMPARISON: Chest CT 03/11/2024 FINDINGS: There is no left-sided pleural effusion. IMPRESSION: 1. No left-sided pleural effusion. Review of Systems Review of Systems: ROS unobtainable: Yes other (Patient is on BiPAP) [facility] Past Medical History Medical History (Updated 03/12/24 @ 01:16 by Leslie Manjarrez MD) Pleural effusion Chronic renal insufficiency, stage III (moderate) Pneumonia PVD (peripheral vascular disease) Colon polyp Psoriatic arthritis Dependence on continuous supplemental oxygen Other specified counseling GERD (gastroesophageal reflux disease) Tobacco abuse Lung cancer Encounter for medication management Neuropathy Anxiety Arthritis Breast cancer COPD (chronic obstructive pulmonary disease) Irritable bowel disease Surgical History Surgical History S/P lumpectomy of breast History of tonsillectomy Hx of cholecystectomy History of liver biopsy H/O cataract extraction History of appendectomy History of knee replacement History of carpal tunnel release History of lung surgery Family History Family History Mother Diabetes mellitus Family history of lung cancer Family history of malignant neoplasm of uterus Family history of psoriasis Family history of malignant neoplasm Sibling Diabetes mellitus Father Family history of chronic obstructive pulmonary disease Family history of lung cancer Hypertension Family history of cardiovascular disease Grandparent Family history of malignant neoplasm of uterus Family history of coronary artery disease Social History Social History Smoking packs per day: 0.5 Smoking cigarettes per day: 10.0 Years smoked: 50 Smoking pack-years: 25.00 Smoking status: Current every day smoker Tobacco type: cigarettes Second hand tobacco smoke exposure: Yes Smoking end date: 06/15/22 Alcohol intake: never Substance use: never Substance use type: does not use Do You Feel Safe in your Home?: Yes Lack of Transportation: No Lack of Food: Never True Current Housing: I Have Housing Concerned About Future Housing: No Difficulty Paying Gas/Electric Bills: No Difficulty Paying for Meds: No Currently Unemployed: No Education: High School Diploma/GED Difficulty w/ Childcare or Family Care: No Living arrangements: with family Occupation/Education: retired Gender identity (if verbalized by the patient): Female Spiritual care concerns: No Agree to blood products: Yes Meds Home Medications and Allergies Home Medications ?Medication ?Instructions ?Recorded ?Confirmed ?Type aspirin 81 mg tablet,delayed 81 mg PO DAILY 01/03/19 03/11/24 History release (Ian Low Dose Aspirin) tmqgssne-mlkveri-aaay-lutein tablet 1 tablet PO DAILY 06/04/19 03/11/24 History cholecalciferol (vitamin D3) 25 25 mcg PO DAILY 05/12/21 03/11/24 History mcg (1,000 unit) capsule vit C 250 mg-vit E 90 mg-zinc 40 1 tablet PO BID 06/30/22 03/11/24 History mg-copper 1 jw-rwbyln-bmkojx capsule (PreserVision AREDS-2) anastrozole 1 mg tablet 1 mg PO DAILY 07/14/22 03/11/24 History ipratropium 0.5 mg-albuterol 3 mg 3 ml inhalation BID 11/09/22 03/11/24 History (2.5 mg base)/3 mL nebulization soln ascorbate calcium (vitamin C) 500 500 mg PO DAILY 12/29/22 03/11/24 History mg tablet ferrous sulfate 325 mg (65 mg 650 mg PO DAILY 12/29/22 03/11/24 History iron) tablet (FeroSul) budesonide 160 mcg-glycopyr 9 See Rx Instructions .Route 04/11/23 03/11/24 Rx mcg-formot 4.8 mcg/actuation HFA .COMPLEX #10.7 grams inhaler (Breztri Aerosphere) lisinopril 10 mg tablet 10 mg PO DAILY #90 tabs 05/19/23 03/11/24 Rx ixekizumab 80 mg/mL subcutaneous See Rx Instructions .Route 06/22/23 03/11/24 Rx auto-injector (Taltz Autoinjector) .COMPLEX #3 mL palbociclib 100 mg capsule 100 mg PO DAILY 07/18/23 03/11/24 History (Ibrance) pregabalin 150 mg capsule 150 mg PO DAILY #90 caps 09/13/23 03/11/24 Rx quetiapine 25 mg tablet 25 mg PO QHS #90 tabs 10/25/23 03/11/24 Rx duloxetine 30 mg capsule,delayed 30 mg PO DAILY #30 caps 01/05/24 03/11/24 Rx release paroxetine HCl 40 mg tablet 20 mg (1/2 x 40 mg) PO DAILY #90 01/22/24 03/11/24 Rx tabs folic acid 1 mg tablet 1 mg PO DAILY #90 tabs 01/26/24 03/11/24 Rx acetaminophen 500 mg tablet 1,000 mg PO BID pain 03/11/24 03/11/24 History cholestyramine-aspartame 4 gram 1 ea PO TIDWM PRN IBS 03/11/24 03/11/24 History oral powder for susp in a packet (Prevalite) Allergies Allergy/AdvReac Type Severity Reaction Status Date / Time bupropion (From Wellbutrin) Allergy Intermediate Rash Verified 03/11/24 22:19 adhesive tape Allergy Unknown BLISTERS Verified 03/11/24 22:19 Bleach (Sodium Hypochlorite) Allergy Unknown Itching Verified 03/11/24 22:19 benzocaine (From Tigan (with AdvReac Unknown Unknown Verified 03/11/24 22:19 benzocaine)) trimethobenzamide AdvReac Unknown N/V Verified 03/11/24 22:19 nickel AdvReac Itching Verified 03/11/24 22:19 Vital Signs Vital Signs - 24 hr 03/11/24 12:53 03/11/24 15:05 03/11/24 15:15 Temperature 97.6 F Pulse Rate 94 89 82 Respiratory Rate 20 20 18 Blood Pressure 141/80 H 137/63 Pulse Oximetry 94 92 Oxygen Delivery Nasal Cannula Oxygen Flow Rate 3 03/11/24 15:15 03/11/24 15:17 03/11/24 15:30 Temperature Pulse Rate 88 81 83 Respiratory Rate 20 17 17 Blood Pressure 136/71 Pulse Oximetry 83 L 100 99 Oxygen Delivery Oxygen Flow Rate 03/11/24 15:31 03/11/24 15:32 03/11/24 15:45 Temperature Pulse Rate 85 81 86 Respiratory Rate 13 18 19 Blood Pressure 123/69 Pulse Oximetry 99 100 Oxygen Delivery Oxygen Flow Rate 03/11/24 15:46 03/11/24 15:47 03/11/24 16:21 Temperature Pulse Rate 85 86 Respiratory Rate 16 20 Blood Pressure 130/66 Pulse Oximetry 100 84 L Oxygen Delivery Nasal Cannula Oxygen Flow Rate 3 03/11/24 16:22 03/11/24 16:30 03/11/24 16:45 Temperature Pulse Rate Respiratory Rate Blood Pressure 130/58 L Pulse Oximetry 99 99 100 Oxygen Delivery Non-Rebreather Mask Oxygen Flow Rate 15 03/11/24 17:01 03/11/24 17:13 03/11/24 17:23 Temperature Pulse Rate 88 Respiratory Rate 20 12 Blood Pressure 135/65 Pulse Oximetry 98 100 100 Oxygen Delivery Non-Rebreather Mask Oxygen Flow Rate 10 03/11/24 18:11 03/11/24 18:50 Temperature Pulse Rate 84 111 H Respiratory Rate 24 H 23 H Blood Pressure Pulse Oximetry 94 Oxygen Delivery BiPAP Oxygen Flow Rate Exam Narrative: Patient is sitting in bed on BiPAP Const: General: comfortable, no acute distress, well developed, alert, awake and average body habitus Nutritional Appearance: average body habitus Orientation/consciousness: patient oriented x3 Other: On BiPAP HENMT: Head: normal to inspection, normocephalic and atraumatic Ears: hearing grossly normal bilaterally Face/Nose/Sinus: normal facial exam Fa ce and sinus: normal facial exam Eyes: General: appearance normal, both eyes and all related structures Pupils: Equal, round and reactive pupils present EOM: EOMs intact bilaterally Neck: Neck: full ROM, no lymphadenopathy and no JVD Thyroid: thyroid normal Lymphatic: no lymphadenopathy noted Resp: Effort & Inspection: normal respiratory effort and able to speak in complete sentences Auscultation: wheezes and diminished lung sounds Cardio: Jugular venous distension: no JVD Rate: regular rate Rhythm: regular rhythm Heart sounds: S1 normal heart sound present, S2 normal heart sound present and Murmur heart sound present GI: GI Palp: Yes Soft to palpation and Yes No hepatosplenomegaly present : General: Yes deferred Skin: Rashes: no rashes Wounds: no wounds Neuro: General: patient oriented x3 and CN's II-XI intact bilaterally Cranial nerves: Yes CN's II-XII intact bilaterally and Yes Equal, round and reactive pupils present Cognition (Neuro): normal cognition Speech: normal speech Gait exam (Neuro): Unable to assess gait Motor exam (neuro): 5/5 motor strength present throughout Extrem: General: normal to inspection, full ROM, no joint enlargement and no pedal edema H&P: Results Labs Labs: Short CBC 03/11/24 Range/Units 14:26 WBC 5.0 (4.5-10.0) K/mm3 Hgb 7.3 L (12.0-15.0) g/dL Hct 25.0 L (37.0-47.0) % Plt Count 220 (150-375) k/mm3 BMP 03/11/24 14:26 Sodium 142 Potassium 4.5 Chloride 99 Carbon Dioxide 39 H BUN 18 H Creatinine 0.81 Glucose 92 Calcium 10.4 H Cardiac Enzymes 03/11/24 Range/Units 14:26 Troponin I < 0.012 (0.000-0.034) ng/mL Liver Function 03/11/24 Range/Units 14:26 Total Bilirubin 0.3 (0.2-1.3) mg/dL AST 28 (14-36) U/L ALT 15 (6-35) U/L Alkaline Phosphatase 83 (38-126) U/L Albumin 3.6 (3.5-5.1) g/dL Assessment and Plan Assessment and plan (1) COPD exacerbation: Code(s): J44.1 - Chronic obstructive pulmonary disease with (acute) exacerbation Status: Acute Assessment and Plan: Admit to IMU On BiPAP (2) Respiratory failure: Qualifiers: Chronicity: acute on chronic Respiratory failure complication: unspecified whether with hypoxia or hypercapnia Qualified Code(s): J96.20 - Acute and chronic respiratory failure, unspecified whether with hypoxia or hypercapnia Code(s): J96.90 - Respiratory failure, unspecified, unspecified whether with hypoxia or hypercapnia Status: Acute Assessment and Plan: Currently on BiPAP (3) Chronic renal insufficiency, stage III (moderate): Code(s): N18.30 - Chronic kidney disease, stage 3 unspecified Status: Acute Assessment and Plan: Continue to monitor (4) Primary cancer of left lower lobe of lung: Code(s): C34.32 - Malignant neoplasm of lower lobe, left bronchus or lung Status: Acute Assessment and Plan: Follow-up in outpatient setting (5) Dependence on continuous supplemental oxygen: Code(s): Z99.81 - Dependence on supplemental oxygen Status: Acute Assessment and Plan: Currently on BiPAP (6) Tobacco abuse: Code(s): Z72.0 - Tobacco use Status: Acute Assessment and Plan: Nicotine patch as needed (7) Pleural effusion: Code(s): J90 - Pleural effusion, not elsewhere classified Status: Acute Assessment and Plan: Pleural tap in a.m. Pleural fluid for analysis Hospitalist [facility] Advance Care Plan I have confirmed that the patient's Advanced Care Plan is present, code status is documented, or surrogate decision maker is listed in patient medical record.: Yes Medication Reconciliation I have utilized all available resources to obtain, update and review the amari ents current medications (includes all prescriptions, OTC, herbals, cannabis, and nutritional supplements).: Yes
[2024-03-11 21:49] LABS: Albumin Level 3.6 g/dL (3.5-5.1); Amylase 40 U/L (30-110); Bilirubin,Total 0.2 mg/dL (0.2-1.3); Cholesterol 139 mg/dL (0-200); Glucose 189 mg/dL (65-110); Lactate Dehydrogenase 121 U/L (120-246); Triglycerides 156 mg/dL (<150)
[2024-03-11 22:04] LABS: Prothrombin Time 13.7 Seconds (11.1-14.7)
--- NOTE | 2024-03-11 22:15 | ADMGEN ---
This patient, May, was admitted to IMU Room 200-01. Patient/family oriented to hospital policies and general routines including ID bracelet, bed and alarms, visiting hours, pain management, procedures, bathroom and other care routines, personal items, smoking policy, room service/diet, and visiting hours. Information on how to activate the Rapid Response Team has been discussed. Patient/Family are encouraged to report perceived risks to care and to ask questions if they do not understand what they are told or what they should do.
[2024-03-11] MEDS: LACTATED RINGERS 1,000 ML 125 ML IV CONT (23:36)
[2024-03-11] MEDS: methylPREDNISolone SOD SUCC 125 MG VIAL 60 MG IV PUSH (23:37)
[2024-03-12] VITALS (29 sets, daily range): BP systolic 116–135; BP diastolic 48–68; PULSE 86–107; RESP 16–24; TEMP 36.2–37.4; O2SAT 78–100
[2024-03-12 04:22] LABS: Add Urine Microscopic? YES; Appearance Urine Clear (Clear); Bacteria Urine None Seen /hpf; Bilirubin Urine Negative (Negative); Blood Urine Negative (Negative); Color Urine Yellow (Yellow); Glucose Urine UA Negative (Negative); Ketones Urine Negative (Negative); Leukocyte Esterase Ur Negative LEU/UL (Negative); Nitrate Urine Negative (Negative); Protein Urine Trace mg/dL (Negative); RBC Urine 0-2 /hpf (0-2); Specific Grav Ur > 1.045 (1.001-1.035); Squamous Epithelial Cell Urine None Seen /hpf (Few); Urobilinogen Urine 0.2 mg/dL (<2.0); WBC Urine 0-5 /hpf (0-3)
[2024-03-12] MEDS: LACTATED RINGERS 1,000 ML 125 ML IV CONT (06:23)
[2024-03-12] MEDS: methylPREDNISolone SOD SUCC 125 MG VIAL 60 MG IV PUSH ×3 (06:23→17:41)
[2024-03-12] MEDS: IPRATROPIUM 0.5 MG/ALBUTEROL SULFATE 2.5 MG AMPUL.NEB 3 ML INHALATION ×3 (06:47→20:15)
[2024-03-12] MEDS: FLUTICASONE/UMECLIDIN/VILANTER 100-62.5-25 MCG ELLIPTA 1 PUFF INHALATION (06:47)
--- NOTE | 2024-03-12 07:44 | PM.IMPN ---
Progress Note: A&P Assessment and Plan (1) COPD exacerbation: Code(s): J44.1 - Chronic obstructive pulmonary disease with (acute) exacerbation Status: Acute Assessment and Plan: Admit to IMU On BiPAP (2) Respiratory failure: Qualifiers: Chronicity: acute on chronic Respiratory failure complication: unspecified whether with hypoxia or hypercapnia Qualified Code(s): J96.20 - Acute and chronic respiratory failure, unspecified whether with hypoxia or hypercapnia Code(s): J96.90 - Respiratory failure, unspecified, unspecified whether with hypoxia or hypercapnia Status: Acute Assessment and Plan: Currently on BiPAP (3) Chronic renal insufficiency, stage III (moderate): Code(s): N18.30 - Chronic kidney disease, stage 3 unspecified Status: Acute Assessment and Plan: Continue to monitor (4) Primary cancer of left lower lobe of lung: Code(s): C34.32 - Malignant neoplasm of lower lobe, left bronchus or lung Status: Acute Assessment and Plan: Follow-up in outpatient setting (5) Dependence on continuous supplemental oxygen: Code(s): Z99.81 - Dependence on supplemental oxygen Status: Acute Assessment and Plan: Currently on BiPAP (6) Tobacco abuse: Code(s): Z72.0 - Tobacco use Status: Acute Assessment and Plan: Nicotine patch as needed (7) Pleural effusion: Code(s): J90 - Pleural effusion, not elsewhere classified Status: Acute Assessment and Plan: Pleural tap in a.m. Pleural fluid for analysis Plan COPD exacerbation -Current smoker -currently on HFNC at 40L -CXR shows left pleural effusion but not on chest US -Vital signs improved and stable -Ceftriaxone and Azithromycin -Methylprednisone 40mg IV q 6hrs -Order nasal MRSA -encourage oral intake Subjective Date/time seen: 03/12/24 07:44 Interval history: 78-year-old female with past medical history significant for COPD, tobacco dependence, chronic hypoxic respiratory failure, lung CA. Patient was brought to the emergency room due to worsening shortness of breath, low pulse oxygenation at home. History has been obtained upon reviewing medical records and from son who is at bedside. Patient required BiPAPAdmitted for further evaluation management and treatment.Pleural tap in a.m.Pleural fluid for analysis.CT PE was negative for pulmonary embolism. Patient lives at home by herself. Patient is current smoker. She requires 3L at rest and 5L at activities. Patient follows up with and [employer] Coordinator(pt is not able to recollect the name). Patient completed her radiation treatment for lung cancer. Pt HgB is 6.7 transfused 1U PRBC Review of Systems Review of Systems: ROS unobtainable: Yes other (Patient is on BiPAP) Exam Narrative: Patient is sitting in bed on BiPAP Const: General: comfortable, no acute distress, well developed, alert, awake and average body habitus Nutritional Appearance: average body habitus Orientation/consciousness: patient oriented x3 Other: On BiPAP HENMT: Head: normal to inspection, normocephalic and atraumatic Ears: hearing grossly normal bilaterally Face/Nose/Sinus: normal facial exam Face and sinus: normal facial exam Eyes: General: appearance normal, both eyes and all related structures Pupils: Equal, round and reactive pupils present EOM: EOMs intact bilaterally Neck: Neck: full ROM, no lymphadenopathy and no JVD Thyroid: thyroid normal Lymphatic: no lymphadenopathy noted Resp: Effort & Inspection: normal respiratory effort and able to speak in complete sentences Auscultation: wheezes and diminished lung sounds Cardio: Jugular venous distension: no JVD Rate: regular rate Rhythm: regular rhythm Heart sounds: S1 normal heart sound present, S2 normal heart sound present and Murmur heart sound present : General: Yes deferred Skin: Rashes: no rashes Wounds: no wounds Neuro: General: patient oriented x3, CN's II-XI intact bilaterally and Unable to assess gait Cranial nerves: Yes CN's II-XII intact bilaterally and Yes Equal, round and reactive pupils present Cognition (Neuro): normal cognition Speech: normal speech Gait exam (Neuro): Unable to assess gait Motor exam (neuro): 5/5 motor strength present throughout Extrem: General: normal to inspection, full ROM, no joint enlargement and no pedal edema Objective Data Vital Signs Vital Signs: Vital Signs - 24 hr 03/11/24 12:53 03/11/24 15:05 03/11/24 15:15 Temperature 97.6 F Pulse Rate 94 89 82 Respiratory Rate 20 20 18 Blood Pressure 141/80 H 137/63 Pulse Oximetry 94 92 Oxygen Delivery Nasal Cannula Oxygen Flow Rate 3 Fraction of Inspired Oxygen 03/11/24 15:15 03/11/24 15:17 03/11/24 15:30 Temperature Pulse Rate 88 81 83 Respiratory Rate 20 17 17 Blood Pressure 136/71 Pulse Oximetry 83 L 100 99 Oxygen Delivery Oxygen Flow Rate Fraction of Inspired Oxygen 03/11/24 15:31 03/11/24 15:32 03/11/24 15:45 Temperature Pulse Rate 85 81 86 Respiratory Rate 13 18 19 Blood Pressure 123/69 Pulse Oximetry 99 100 Oxygen Delivery Oxygen Flow Rate Fraction of Inspired Oxygen 03/11/24 15:46 03/11/24 15:47 03/11/24 16:21 Temperature Pulse Rate 85 86 Respiratory Rate 16 20 Blood Pressure 130/66 Pulse Oximetry 100 84 L Oxygen Delivery Nasal Cannula Oxygen Flow Rate 3 Fraction of Inspired Oxygen 03/11/24 16:22 03/11/24 16:30 03/11/24 16:45 Temperature Pulse Rate Respiratory Rate Blood Pressure 130/58 L Pulse Oximetry 99 99 100 Oxygen Delivery Non-Rebreather Mask Oxygen Flow Rate 15 Fraction of Inspired Oxygen 03/11/24 17:01 03/11/24 17:13 03/11/24 17:23 Temperature Pulse Rate 88 Respiratory Rate 20 12 Blood Pressure 135/65 Pulse Oximetry 98 100 100 Oxygen Delivery Non-Rebreather Mask Oxygen Flow Rate 10 Fraction of Inspired Oxygen 03/11/24 18:11 03/11/24 18:50 03/11/24 21:18 Temperature 98.4 F Pulse Rate 84 111 H 98 Respiratory Rate 24 H 23 H 29 H Blood Pressure 117/71 Pulse Oximetry 94 98 Oxygen Delivery BiPAP Oxygen Flow Rate Fraction of Inspired Oxygen 03/11/24 21:31 03/11/24 22:00 03/11/24 22:32 Temperature Pulse Rate 75 92 Respiratory Rate 24 H Blood Pressure Pulse Oximetry 97 Oxygen Delivery BiPAP Oxygen Flow Rate Fraction of Inspired Oxygen 40 03/12/24 00:00 03/12/24 00:00 03/12/24 00:00 Temperature 98.6 F Pulse Rate 96 95 Respiratory Rate 16 Blood Pressure 118/48 L Pulse Oximetry 97 97 Oxygen Delivery BiPAP Oxygen Flow Rate Fraction of Inspired Oxygen 40 03/12/24 02:00 03/12/24 02:49 03/12/24 04:00 Temperature Pulse Rate 90 90 Respiratory Rate 16 Blood Pressure Pulse Oximetry 91 92 Oxygen Delivery BiPAP BiPAP Oxygen Flow Rate Fraction of Inspired Oxygen 40 03/12/24 04:00 03/12/24 04:00 03/12/24 06:00 Temperature 97.9 F Pulse Rate 87 89 88 Respiratory Rate 20 Blood Pressure 130/59 L Pulse Oximetry 94 Oxygen Delivery Oxygen Flow Rate Fraction of Inspired Oxygen 03/12/24 06:45 03/12/24 06:45 03/12/24 06:55 Temperature Pulse Rate 89 89 86 Respiratory Rate 16 16 18 Blood Pressure Pulse Oximetry 96 Oxygen Delivery BiPAP Oxygen Flow Rate Fraction of Inspired Oxygen Intake/Output Intake/Output: Intake & Output 03/09/24 03/10/24 03/11/24 03/12/24 23:59 23:59 23:59 23:59 Intake Total 200 1147.9 Output Total 100 Balance 200 1047.9 Meds/Results Medications: Active Medications Generic Name Dose Route Start Last Admin Trade Name Freq PRN Reason Stop Dose Admin Acetaminophen 1,000 mg 03/12/24 09:00 Acetaminophen 500 Mg Tablet PO Q12HR GIA Albuterol/Ipratropium 3 ml 03/11/24 20:00 03/12/24 06:47 Ipratropium 0.5 Mg/Albuterol Sulfate 2.5 Mg Ampul.Neb 3 Ml INHALATION 3 ml Q6HRT GIA Administration Anastrozole 1 mg 03/12/24 09:00 Anastrozole (*Chemo) 1 Mg Tablet PO DAILY GIA Cholestyramine Resin 4 gm 03/12/24 01:09 Cholestyramine Light 4 Gm Powd.Pack PO TIDWM PRN IBS Duloxetine HCl 30 mg 03/12/24 09:00 Duloxetine Hcl 30 Mg Capsule.Dr PO DAILY GIA Ferrous Sulfate 650 mg 03/12/24 09:00 Ferrous Sulfate [address] BY MOUTH DAILY GIA Fluticasone/Umeclidinium/Vilanterol 1 puff 03/12/24 08:00 Fluticasone/Umeclidin/Vilanter 100-62.5-25 Mcg Ellipta INHALATION DAILYRT GIA Folic Acid 1 mg 03/12/24 09:00 Folic Acid 1 Mg Tablet PO DAILY GIA Ceftriaxone Sodium 1 gm in 50 mls @ 100 mls/hr 03/12/24 20:00 Rocephin 1 Gm/Ns 50 Ml IVPB Q24H GIA Doxycycline Hyclate 100 mg in 100 mls @ 100 mls/hr 03/12/24 09:00 Vibramycin 100 Mg/Ns 100 Ml IVPB Q12H [facility] Lactated Ringer's 1,000 mls @ 125 mls/hr 03/11/24 19:45 03/12/24 06:23 Lr - Lactated Ringers Iv IV CONT 125 mls/hr .Q8H GIA Administration Methylprednisolone Sodium Succinate 60 mg 03/12/24 00:00 03/12/24 06:23 Methylprednisolone Sod Succ 125 Mg Vial IV PUSH 60 mg Q6HR GIA Administration Pregabalin 150 mg 03/12/24 09:00 Pregabalin (*Crx) 75 Mg Capsule PO DAILY [facility] Quetiapine Fumarate 25 mg 03/12/24 21:00 Quetiapine Fumarate 25 Mg Tablet PO QHS [facility] Radiology Results: ITS Impressions Chest X-Ray 03/11/24 15:57 IMPRESSION: Right apical lung mass left-sided pleural effusion, as detailed Chest CTA 03/11/24 18:01 IMPRESSION: 1. No pulmonary embolus. 2. Pulmonary nodules with worsening from 01/16/2024, consistent with metastatic disease. 3. Bone lesion in L1, stable from 01/18/23, suspicious for metastatic disease. 4. Mild emphysema. Chest Ultrasound 03/11/24 18:01 IMPRESSION: 1. No left-sided pleural effusion. Labs Labs: Laboratory Results - last 24 hr 03/11/24 03/11/24 03/11/24 14:26 18:01 21:34 WBC 5.0 RBC 2.30 L Hgb 7.3 L Hct 25.0 L MCV 108.7 H MCH 31.7 MCHC 29.2 L RDW 14.3 Plt Count 220 MPV 9.7 Immature Gran % (Auto) 0.8 H Neut % (Auto) 74.5 H Lymph % (Auto) 13.1 L [place] % (Auto) 6.8 Eos % (Auto) 4.2 Baso % (Auto) 0.6 Lymph # (Auto) 0.65 L [place] # (Auto) 0.3 Eos # (Auto) 0.2 Baso # (Auto) 0.0 Abs Immat Gran (auto) 0.04 H Absolute Neuts (auto) 3.7 Absolute Nucleated RBC 0.000 Nucleated RBC % 0.0 Platelet Estimate Adequate Hypochromasia 1+ Anisocytosis 2+ Macrocytosis 2+ Schistocytes None seen PT 13.1 13.7 INR 0.9 1.0 APTT 20.8 L D-Dimer 0.31 Puncture Site Right radial ABG pH 7.304 L ABG pCO2 76.8 H* ABG pO2 166.8 H ABG PO2/FiO2 Ratio 1.67 ABG HCO3 37.3 H ABG O2 Saturation 98.9 ABG O2 Content 10.6 L ABG Base Excess 9.6 A-a Gradient 469.4 Oxyhemoglobin 96.4 Total Hemoglobin 7.5 L* O2 Delivery Device Non-rebreather mask O2 Liters/Min 15.0 FiO2 100 Sodium 142 Potassium 4.5 Chloride 99 Carbon Dioxide 39 H Anion Gap 4 BUN 18 H Creatinine 0.81 Estim Creat Clear Calc 45 Estimated GFR > 60 Glucose 92 189 H Calcium 10.4 H Magnesium 2.4 H Total Bilirubin 0.3 0.2 AST 28 ALT 15 Alkaline Phosphatase 83 Lactate Dehydrogenase 121 Troponin I < 0.012 Total Protein 7.0 6.0 L Albumin 3.6 3.6 Triglycerides 156 H Cholesterol 139 Amylase 40 Urine Color Urine Appearance Urine pH Ur Specific [place] Urine Protein Urine Glucose (UA) Urine Ketones Ur Blood (Man) Urine Nitrate Urine Bilirubin Urine Urobilinogen Leukocyte Esterase Rfl Urine RBC Urine WBC Ur Squamous Epith Cells Urine Bacteria Urine Casts Influenza A (RT-PCR) Negative Influenza B (RT-PCR) Negative RSV (RT-PCR) Negative SARS-CoV-2 RNA (RT-PCR) Negative 03/12/24 04:12 WBC RBC Hgb Hct MCV MCH MCHC RDW Plt Count MPV Immature Gran % (Auto) Neut % (Auto) Lymph % (Auto) [place] % (Auto) Eos % (Auto) Baso % (Auto) Lymph # (Auto) [place] # (Auto) Eos # (Auto) Baso # (Auto) Abs Immat Gran (auto) Absolute Neuts (auto) Absolute Nucleated RBC Nucleated RBC % Platelet Estimate Hypochromasia Anisocytosis Macrocytosis Schistocytes PT INR APTT D-Dimer Puncture Site ABG pH ABG pCO2 ABG pO2 ABG PO2/FiO2 Ratio ABG HCO3 ABG O2 Saturation ABG O2 Content ABG Base Excess A-a Gradient Oxyhemoglobin Total Hemoglobin O2 Delivery Device O2 Liters/Min FiO2 Sodium Potassium Chloride Carbon Dioxide Anion Gap BUN Creatinine Estim Creat Clear Calc Estimated GFR Glucose Calcium Magnesium Total Bilirubin AST ALT Alkaline Phosphatase Lactate Dehydrogenase Troponin I Total Protein Albumin Triglycerides Cholesterol Amylase Urine Color Yellow Urine Appearance Clear Urine pH 5.0 Ur Specific [place] > 1.045 H Urine Protein Trace Urine Glucose (UA) Negative Urine Ketones Negative Ur Blood (Man) Negative Urine Nitrate Negative Urine Bilirubin Negative Urine Urobilinogen 0.2 Leukocyte Esterase Rfl Negative Urine RBC 0-2 Urine WBC 0-5 Ur Squamous Epith Cells None seen Urine Bacteria None seen Urine Casts 3-5 Influenza A (RT-PCR) Influenza B (RT-PCR) RSV (RT-PCR) SARS-CoV-2 RNA (RT-PCR) Hospitalist MIPS Advance Care Plan I have confirmed that the patient's Advanced Care Plan is present, code status is documented, or surrogate decision maker is listed in patient medical record.: Yes Medication Reconciliation I have utilized all available resources to obtain, update and review the patients current medications (includes all prescriptions, OTC, herbals, cannabis, and nutritional supplements).: Yes
[2024-03-12 08:27] LABS: Alveolar/Arterial O2 Gradient 144.7 mmHg; Base Excess ABG 11.1 mEq/l (+/-2.0); Fractional Inspired Oxygen 40 %; HCO3 ABG 36.9 mEq/l (22.0-26.0); Oxygen Content ABG 9.7 %vol (16.0-22.0); Oxygen Saturation ABG 94.5 % (95.0-100.0); Oxyhemoglobin 93.5 % THb (90.0-100.0); PCO2 ABG 58.6 mmHg (35.0-45.0); PO2 ABG 73.1 mmHg (80.0-100.0); PO2 FiO2 Ratio Arterial Blood 1.83 %; pH ABG 7.417 (7.350-7.450)
[2024-03-12 08:29] LABS: Device BIPAP; Site Drawn RIGHT BRACHIAL; Total Hemoglobin 7.3 g/dL (12.0-18.0)
[2024-03-12 08:31] LABS: Expiratory Pressure 5 cmH2O; Inspiratory Pressure 15 cmH2O
[2024-03-12 08:53] LABS: Mean Corpuscular HGB Conc 29.1 g/dl (32-36); Mean Corpuscular Hemoglobin 32.1 pg (26-34); Mean Platelet Volume 9.6 fl (7.4-10.4); Platelet Count Result 195 k/mm3 (150-375); Red Blood Count 2.09 M/mm3 (4.2-5.4); Red Cell Distribution Width 14.2 % (11.5-14.5); White Blood Count 6.8 K/mm3 (4.5-10.0)
[2024-03-12] MEDS: DOXYCYCLINE 100 MG/NS 100 ML 100 MG/100 ML BAG IVPB ×2 (08:56→21:44)
[2024-03-12] MEDS: ACETAMINOPHEN 500 MG TABLET 1000 MG PO ×2 (08:57→21:06)
[2024-03-12] MEDS: FERROUS SULFATE 325 MG TABLET DR 650 MG BY MOUTH (08:57)
[2024-03-12] MEDS: PREGABALIN (*CRX) 75 MG CAPSULE 150 MG PO (08:57)
[2024-03-12] MEDS: DULoxetine HCL 30 MG CAPSULE.DR PO (08:58)
[2024-03-12] MEDS: FOLIC ACID 1 MG TABLET PO (08:58)
[2024-03-12] MEDS: ANASTROZOLE (*CHEMO) 1 MG TABLET PO (08:58)
[2024-03-12 09:03] LABS: Alanine Aminotransferase 14 U/L (6-35); Albumin Level 3.4 g/dL (3.5-5.1); Alkaline Phosphatase 84 U/L (38-126); Anion Gap 3 mmol/L (4-12); Aspartate Amino Transferase 19 U/L (14-36); Bilirubin,Total 0.3 mg/dL (0.2-1.3); Blood Urea Nitrogen 19 mg/dL (7-17); Calcium 10.5 mg/dL (8.4-10.2); Carbon Dioxide 39 mmol/L (22-30); Chloride 101 mmol/L (98-107); Estimated CRCL calculation 37 ml/min; Estimated Glomerular Filt Rate 54; Glucose 132 mg/dL (65-110); Potassium 4.6 mmol/L (3.4-5.0); Sodium 143 mmol/L (137-145)
[2024-03-12 09:08] LABS: Hemoglobin 6.7 g/dL (12.0-15.0)
[2024-03-12] MEDS: SODIUM CHLORIDE 0.9% IV 250 ML 30 ML IV CONT (12:53)
[2024-03-12] MEDS: TUBING, BLOOD PLUM PUMP TUBING 1 EACH XX (12:53)
--- NOTE | 2024-03-12 17:15 | PM.CNPUL ---
Assessment and Plan Assessment and plan (1) Acute on chronic respiratory failure with hypoxia and hypercapnia: Code(s): J96.21 - Acute and chronic respiratory failure with hypoxia; J96.22 - Acute and chronic respiratory failure with hypercapnia Status: Acute Assessment and Plan: She has chronic CO2 retention, prior blood gases show this, she is on oxygen at home, on admission was hypoxemic, required increase oxygen, CO2 was elevated, improved on BiPAP. (2) COPD (chronic obstructive pulmonary disease): Qualifiers: COPD type: unspecified COPD Qualified Code(s): J44.9 - Chronic obstructive pulmonary disease, unspecified Code(s): J44.9 - Chronic obstructive pulmonary disease, unspecified Status: Acute Assessment and Plan: Has long history of COPD, at home takes Breztri and prn albuterol. She has mild emphysema radiographically. * 02/21/2020 PFT = FEV1 is 1.04 L after bronchodilator administration, TLC 71% mild restriction, DLCO 35%, DLCO/VA 79% Continue bronchodilator therapy and p.r.n. bronchodilators. (3) Lung cancer: Code(s): C34.90 - Malignant neoplasm of unspecified part of unspecified bronchus or lung Status: Acute Assessment and Plan: She has increasing size of right upper lobe nodules, increased in size since January 20, 2024. The 1.3 cm nodule is now 1.4 cm, the 1 cm is 1.3 cm, and she has other smaller nodules. She had a partial right upper lobectomy. She has no additional plans for radiation at this point. She will need oncology evaluation for these developments, when she is over this episode and admission. Other nodules include RLL 3 mm, TRISHA 3 mm. Peripheral radiation fibrosis in lingula. No pleural effusion. (4) Dependence on continuous supplemental oxygen: Code(s): Z99.81 - Dependence on supplemental oxygen Status: Acute Assessment and Plan: At home on 3 L at rest, 5 L with exertion, here did require more oxygenation initially, now can be weaned lower. (5) Tobacco abuse: Code(s): Z72.0 - Tobacco use Status: Acute Assessment and Plan: Smoked until this admission; lives alone; has smoked 60 years, now half pack per day. (6) Mixed restrictive and obstructive lung disease: Code(s): J43.9 - Emphysema, unspecified; J98.4 - Other disorders of lung Status: Acute Assessment and Plan: Per her pulmonary function test 2020, no repeat testing seen in the system 02/21/2020 PFT; mixed restrictive and obstructive pattern with severe diffusion impairment, Total lung capacity 71%, FEV1 64% after bronchodilator administration, DLCO 35%, DLCO/VA 71% Plan plan: 1) stop BiPAP as she is not tolerating this at this time, 15/5 and 40%; her pH is compensated, the difference between I and E pressure is 10 cm, a large amount, substitute AirVo which may be easier to tolerate; she needs help with oxygenation 2) Chest USG shows no Left pleural effusion to tap 3) If she does not saturate well on AirVO, she could return to BiPAP at lower settings, 12/7and 40% which would improve oxygenation with less distention of her lungs; the TV was 1600 ml when I saw her initially. 4) Continue antibiotics for community acquired pneumonia; she is an altered host with hx of lung and breast cancer 5) Cornet valve to help clear dry sticky secretions; she is not able to expectorate easily. 6) Decrease solumedrol to 40 mg Q 8 hours, not wheezing currently 7) she smoked until this admission; has smoked 60 years; will need intense tobacco cessation counselling, says that hse is now considering not smoking any longer 8) She is on doxycycline and ceftriaxone adequate therapy for community-acquired pneumonia although she does not have any specific infiltrate. Will treat her for community-acquired pneumonia as well as a COPD exacerbation. She had all vaccinations this past fall, flu, RSV and COVID. She was not around any sick contacts. Her serologies for these viral conditions all negative on Mar 11. I will send urine antigens for Legionella, S pneumonia, procalcitonin level tomorrow morning; if this is negative, will have a clearer path de-escalating antibiotics History of Present Illness History of Present Illness Consult date: 03/12/24 Requesting physician: Denis Cruz MD Chief complaint: COPD Narrative: pt was seen Mar 12, 2024 at 17:20 Room 200-1 NEW: May Deatheratanvi is a 78 year old female admitted with increased shortness of breath. She was last seen in our clinic 01/09/2024; has COPD, tobacco dependence, chronic hypoxic respiratory failure on O2; 3L with rest, 5 L with exertion; non-small cell lung CA now with 2 synchronous RUL lung cancers and an oligorecurrent from breast primary lesion involving T12 spine. She had a wedge resection in the RUL. She had a chest CT 03/04/24 showing RUL nodule 14 mm. She tells me that she had increased cough with wheezing, fatigue for 2-3 days prior to admission; she has been using her inhaler more frequently. She denies any recent fever, chest pain, abdominal pain. She has not been around any sick contacts. Her wbc was normal 5.0, anemia 7.3/25% and March 12 today dropped to 6.7 and 23%. No obvious bleeding. She has acute on chronic hypercapnic hypoxemic respiratory failure initially blood gas pH 7.30 pCO2 76.8, PO2 166 H CO3 37.3 on 15 L. After BiPAP 15/5 and 40% her blood gas has normalized, see below. Her CTA does not show a pulmonary embolus. She has pulmonary nodules that are worsening compared to January 16, 2024 consistent with metastatic disease and a stable bone lesion in L1. PMH: 1) non small cell lung CA RUL, s/p SBRT therapy July 2022 for RUL lung cancer, SBRT 09/2023-10/2023 for 2 RUL nodules and breast primary lesion involving T12 spine. history of RUL wedge resection, follows Dr. Michaud. 2) history of breast cancer 2005 s/p lumpectomy. 3) Rheumatoid arthritis on Taltz, sees Dr. Greer. DATA * Mar 11 all serology negative flu A/B, RSV COVID * AFSHIN 02/27/2018 AFSHIN 1:320 nucleolar pattern * Mar 11 = wbc 5, H/H 7.3, 25%, plt 220 Mar 12 = 6.8, H/H 6.7/ 23%, 195 K, * ABGs ; she has adequate oxygenation, her initial hypercapnia has improved and no longer requires the BiPAP 15/5 which is a really high a difference between the inspiratory and expiratory pressure. I am going to try Airvo to oxygenate and it does have a small amount of PEEP. 06/22/22 03/11/24 03/12/34 pH 7.397 7.30 7.41 pCO2 55.7 76.8 58.6 pO2 56 166 73 HCO3 33.5 37.3 36.9 Sat 88.6% 98% 94.5% Hbg 10.3 g 7.5 g 7.3 g O2 3 L 15 L BiPAP 40% * Chest CTA 03/11/24 = There is mild elevation of left hemidiaphragm. There are changes of wedge resection in right lung upper lobe. There is a 13 mm nodule in right upper lobe. There is a 14 mm nodule in right upper lobe. There is a 10 mm nodule in right lower lobe. There is a 5 mm nodule in left upper lobe. There is a 18 mm nodule in lingula. There is mild atelectasis bilaterally. No pleural effusion. The heart size is normal. No pericardial effusion. There is no pulmonary embolus. There is a 4.1 cm cyst in the spleen. There is a 3.7 cm cyst in left kidney. There are old fractures multiple left rib fractures. There is severe cervical and thoracic spondylosis. There is a mixed lytic and sclerotic lesion in L1 vertebral body. IMPRESSION: 1. No pulmonary embolus. 2. Pulmonary nodules with worsening from 01/16/2024, consistent with metastatic disease. 3. Bone lesion in L1, stable from 01/18/23, suspicious for metastatic disease. 4. Mild emphysema. 02/21/2020 PFT = FEV1 is 1.04 L after bronchodilator administration, TLC 71% mild restriction, DLCO 35%, DLCO/VA 79% after bronchodilator FVC 1.56 L 67% +15%, 1.79 L, 77% FEV1 0.94 L 58% +10%, 1.04 L, 64% FEV1/FVC 60% [id number]% 0.35 L 17% TLC 2.82 L 71% RV 1.26 L 78% ERV RV/TLC 45% DLCO 6.6, 35% DLCO/VA 2.81, 79% Review of Systems Review of Systems: Stable weight No hemoptysis or pleuritic chest discomfort All systems reviewed & are unremarkable except as noted in HPI and below PMFSH Past Medical History Medical History (Updated 03/13/24 @ 11:51 by Mia Vaz MD) Pleural effusion Chronic renal insufficiency, stage III (moderate) Pneumonia PVD (peripheral vascular disease) Colon polyp Psoriatic arthritis Dependence on continuous supplemental oxygen Other specified counseling GERD (gastroesophageal reflux disease) Tobacco abuse Lung cancer Encounter for medication management Neuropathy Anxiety Arthritis Breast cancer COPD (chronic obstructive pulmonary disease) Irritable bowel disease Surgical History Surgical History S/P lumpectomy of breast History of tonsillectomy Hx of cholecystectomy History of liver biopsy H/O cataract extraction History of appendectomy History of knee replacement History of carpal tunnel release History of lung surgery Family History Family History Mother Diabetes mellitus Family history of lung cancer Family history of malignant neoplasm of uterus Family history of psoriasis Family history of malignant neoplasm Sibling Diabetes mellitus Father Family history of chronic obstructive pulmonary disease Family history of lung cancer Hypertension Family history of cardiovascular disease Grandparent Family history of malignant neoplasm of uterus Family history of coronary artery disease Social History Social History Smoking packs per day: 0.5 Smoking cigarettes per day: 10.0 Years smoked: 50 Smoking pack-years: 25.00 Smoking status: Current every day smoker Tobacco type: cigarettes Second hand tobacco smoke exposure: Yes Smoking end date: 06/15/22 Alcohol intake: never Substance use: never Substance use type: does not use Do You Feel Safe in your Home?: Yes Lack of Transportation: No Lack of Food: Never True Current Housing: I Have Housing Concerned About Future Housing: No Difficulty Paying Gas/Electric Bills: No Difficulty Paying for Meds: No Currently Unemployed: No Education: High School Diploma/GED Difficulty w/ Childcare or Family Care: No Living arrangements: with family Occupation/Education: retired Gender identity (if verbalized by the patient): Female Spiritual care concerns: No Agree to blood products: Yes Meds Home Medications and Allergies Home Medications ?Medication ?Instructions ?Recorded ?Confirmed ?Type aspirin 81 mg tablet,delayed 81 mg PO DAILY 01/03/19 03/11/24 History release (Ian Low Dose Aspirin) nmchfmbh-ykrdbnq-hnyh-lutein tablet 1 tablet PO DAILY 06/04/19 03/11/24 History cholecalciferol (vitamin D3) 25 25 mcg PO DAILY 05/12/21 03/11/24 History mcg (1,000 unit) capsule vit C 250 mg-vit E 90 mg-zinc 40 1 tablet PO BID 06/30/22 03/11/24 History mg-copper 1 av-gnnzxx-myjfrj capsule (PreserVision AREDS-2) anastrozole 1 mg tablet 1 mg PO DAILY 07/14/22 03/11/24 History ipratropium 0.5 mg-albuterol 3 mg 3 ml inhalation BID 11/09/22 03/11/24 History (2.5 mg base)/3 mL nebulization soln ascorbate calcium (vitamin C) 500 500 mg PO DAILY 12/29/22 03/11/24 History mg tablet ferrous sulfate 325 mg (65 mg 650 mg PO DAILY 12/29/22 03/11/24 History iron) tablet (FeroSul) budesonide 160 mcg-glycopyr 9 See Rx Instructions .Route 04/11/23 03/11/24 Rx mcg-formot 4.8 mcg/actuation HFA .COMPLEX #10.7 grams inhaler (Breztri Aerosphere) lisinopril 10 mg tablet 10 mg PO DAILY #90 tabs 05/19/23 03/11/24 Rx ixekizumab 80 mg/mL subcutaneous See Rx Instructions .Route 06/22/23 03/11/24 Rx auto-injector (Taltz Autoinjector) .COMPLEX #3 mL palbociclib 100 mg capsule 100 mg PO DAILY 07/18/23 03/11/24 History (Ibrance) pregabalin 150 mg capsule 150 mg PO DAILY #90 caps 09/13/23 03/11/24 Rx quetiapine 25 mg tablet 25 mg PO QHS #90 tabs 10/25/23 03/11/24 Rx duloxetine 30 mg capsule,delayed 30 mg PO DAILY #30 caps 01/05/24 03/11/24 Rx release paroxetine HCl 40 mg tablet 20 mg (1/2 x 40 mg) PO DAILY #90 01/22/24 03/11/24 Rx tabs folic acid 1 mg tablet 1 mg PO DAILY #90 tabs 01/26/24 03/11/24 Rx acetaminophen 500 mg tablet 1,000 mg PO BID pain 03/11/24 03/11/24 History cholestyramine-aspartame 4 gram 1 ea PO TIDWM PRN IBS 03/11/24 03/11/24 History oral powder for susp in a packet (Prevalite) Allergies Allergy/AdvReac Type Severity Reaction Status Date / Time bupropion (From Wellbutrin) Allergy Intermediate Rash Verified 03/11/24 22:19 adhesive tape Allergy Unknown BLISTERS Verified 03/11/24 22:19 Bleach (Sodium Hypochlorite) Allergy Unknown Itching Verified 03/11/24 22:19 benzocaine (From Tigan (with AdvReac Unknown Unknown Verified 03/11/24 22:19 benzocaine)) trimethobenzamide AdvReac Unknown N/V Verified 03/11/24 22:19 nickel AdvReac Itching Verified 03/11/24 22:19 Vital Signs Vital Signs - 24 hr 03/11/24 17:23 03/11/24 18:11 03/11/24 18:50 Temperature Pulse Rate 84 111 H Respiratory Rate 24 H 23 H Blood Pressure Pulse Oximetry 100 94 Oxygen Delivery Non-Rebreather Mask BiPAP Oxygen Flow Rate 10 Fraction of Inspired Oxygen 03/11/24 21:18 03/11/24 21:31 03/11/24 22:00 Temperature 36.9 C Pulse Rate 98 75 92 Respiratory Rate 29 H 24 H Blood Pressure 117/71 Pulse Oximetry 98 Oxygen Delivery Oxygen Flow Rate Fraction of Inspired Oxygen 03/11/24 22:32 03/12/24 00:00 03/12/24 00:00 Temperature 37.0 C Pulse Rate 96 Respiratory Rate 16 Blood Pressure 118/48 L Pulse Oximetry 97 97 97 Oxygen Delivery BiPAP BiPAP Oxygen Flow Rate Fraction of Inspired Oxygen 40 40 03/12/24 00:00 03/12/24 02:00 03/12/24 02:49 Temperature Pulse Rate 95 90 90 Respiratory Rate 16 Blood Pressure Pulse Oximetry 91 Oxygen Delivery BiPAP Oxygen Flow Rate Fraction of Inspired Oxygen 03/12/24 04:00 03/12/24 04:00 03/12/24 04:00 Temperature 36.6 C Pulse Rate 87 89 Respiratory Rate 20 Blood Pressure 130/59 L Pulse Oximetry 92 94 Oxygen Delivery BiPAP Oxygen Flow Rate Fraction of Inspired Oxygen 40 03/12/24 06:00 03/12/24 06:45 03/12/24 06:45 Temperature Pulse Rate 88 89 89 Respiratory Rate 16 16 Blood Pressure Pulse Oximetry 96 Oxygen Delivery BiPAP Oxygen Flow Rate Fraction of Inspired Oxygen 03/12/24 06:55 03/12/24 07:32 03/12/24 08:00 Temperature 36.2 C L Pulse Rate 86 90 Respiratory Rate 18 19 Blood Pressure 125/68 Pulse Oximetry 97 96 Oxygen Delivery BiPAP Oxygen Flow Rate Fraction of Inspired Oxygen 40 03/12/24 08:00 03/12/24 09:00 03/12/24 10:00 Temperature Pulse Rate 89 94 Respiratory Rate Blood Pressure Pulse Oximetry 91 91 Oxygen Delivery High Flow Nasal Cannula Oxygen Flow Rate 6 Fraction of Inspired Oxygen 03/12/24 10:00 03/12/24 11:34 03/12/24 12:00 Temperature 37.2 C Pulse Rate 92 97 Respiratory Rate 24 H Blood Pressure 127/60 Pulse Oximetry 93 93 Oxygen Delivery High Flow Nasal Cannula Oxygen Flow Rate 4 Fraction of Inspired Oxygen 03/12/24 12:00 03/12/24 12:45 03/12/24 12:55 Temperature Pulse Rate 107 H 100 97 Respiratory Rate 20 20 Blood Pressure Pulse Oximetry Oxygen Delivery Oxygen Flow Rate Fraction of Inspired Oxygen 03/12/24 12:56 03/12/24 13:13 03/12/24 14:00 Temperature 36.6 C 36.9 C Pulse Rate 103 H 102 H 104 H Respiratory Rate 18 20 Blood Pressure 127/59 L 116/52 L Pulse Oximetry 100 90 Oxygen Delivery Oxygen Flow Rate Fraction of Inspired Oxygen 03/12/24 14:13 03/12/24 15:30 03/12/24 16:00 Temperature 37.1 C 37.4 C Pulse Rate 105 H 102 H Respiratory Rate 22 H 20 Blood Pressure 130/57 L 135/52 L Pulse Oximetry 97 91 94 Oxygen Delivery BiPAP Oxygen Flow Rate Fraction of Inspired Oxygen 40 03/12/24 16:00 Temperature Pulse Rate 102 H Respiratory Rate Blood Pressure Pulse Oximetry Oxygen Delivery Oxygen Flow Rate Fraction of Inspired Oxygen Exam Narrative: GEN: Alert, oriented, not in distress. 93% on 6 L/minute HEENT: pupils are equal, EOMI, symmetrical face; oral membranes parched, Mallampati IV airway NECK: Trachea is midline CHEST: Equal air entry, symmetric excursion, decreased air entry, few basilar crackles without wheezing CV: Regular S1S2 no m/g/r ABD : (+) bowel sounds Extremities : no clubbing, cyanosis, or edema,no rash, good capillary refill; she has peripheral not but the both feet secondary to oral chemotherapy, as she stopped the chemotherapy she developed the peripheral neuropathy PSYCH: normal thought and speech Results Laboratory Findings 03/13/24 09:51 03/13/24 08:33 ABG, PT/INR, D-dimer: ABG ABG pH 7.417 (7.350-7.450) 03/12/24 08:15 ABG pCO2 58.6 mmHg (35.0-45.0) H 03/12/24 08:15 ABG pO2 73.1 mmHg (80.0-100.0) L 03/12/24 08:15 ABG O2 Saturation 94.5 % (95.0-100.0) L 03/12/24 08:15 PT/INR, D-dimer PT 13.7 Seconds (11.1-14.7) 03/11/24 21:34 INR 1.0 03/11/24 21:34 D-Dimer 0.31 ug/mL (<0.48) 03/11/24 14:26 Abnormal lab findings: Abnormal Labs 03/11/24 03/11/24 03/11/24 14:26 18:01 21:34 RBC 2.30 L Hgb 7.3 L Hct 25.0 L MCV 108.7 H MCHC 29.2 L Immature Gran % (Auto) 0.8 H Neut % (Auto) 74.5 H Lymph % (Auto) 13.1 L Lymph # (Auto) 0.65 L Abs Immat Gran (auto) 0.04 H APTT 20.8 L ABG pH 7.304 L ABG pCO2 76.8 H* ABG pO2 166.8 H ABG HCO3 37.3 H ABG O2 Saturation ABG O2 Content 10.6 L Total Hemoglobin 7.5 L* Carbon Dioxide 39 H Anion Gap BUN 18 H Estimated GFR Glucose 189 H Calcium 10.4 H Magnesium 2.4 H Total Protein 6.0 L Albumin Triglycerides 156 H Ur Specific [place] Crossmatch 03/12/24 03/12/24 03/12/24 04:12 08:15 08:30 RBC 2.09 L Hgb 6.7 L* Hct 23.0 L MCV 110.0 H MCHC 29.1 L Immature Gran % (Auto) Neut % (Auto) Lymph % (Auto) Lymph # (Auto) Abs Immat Gran (auto) APTT ABG pH ABG pCO2 58.6 H ABG pO2 73.1 L ABG HCO3 36.9 H ABG O2 Saturation 94.5 L ABG O2 Content 9.7 L Total Hemoglobin 7.3 L* Carbon Dioxide 39 H Anion Gap 3 L BUN 19 H Estimated GFR 54 L Glucose 132 H Calcium 10.5 H Magnesium Total Protein 6.0 L Albumin 3.4 L Triglycerides Ur Specific [place] > 1.045 H Crossmatch 03/12/24 10:30 RBC Hgb Hct MCV MCHC Immature Gran % (Auto) Neut % (Auto) Lymph % (Auto) Lymph # (Auto) Abs Immat Gran (auto) APTT ABG pH ABG pCO2 ABG pO2 ABG HCO3 ABG O2 Saturation ABG O2 Content Total Hemoglobin Carbon Dioxide Anion Gap BUN Estimated GFR Glucose Calcium Magnesium Total Protein Albumin Triglycerides Ur Specific [place] Crossmatch See Detail
[2024-03-12 20:22] LABS: MRSA (PCR) NOT DETECTED (NOT DETECTE)
[2024-03-12] MEDS: methylPREDNISolone SOD SUCC 40 MG VIAL IV PUSH (21:06)
[2024-03-12] MEDS: QUEtiapine FUMARATE 25 MG TABLET PO (21:06)
[2024-03-13] VITALS (26 sets, daily range): BP systolic 130–150; BP diastolic 62–68; PULSE 71–96; RESP 18–26; TEMP 36.5–37.2; O2SAT 90–95
[2024-03-13] MEDS: IPRATROPIUM 0.5 MG/ALBUTEROL SULFATE 2.5 MG AMPUL.NEB 3 ML INHALATION ×4 (02:05→19:12)
[2024-03-13] MEDS: methylPREDNISolone SOD SUCC 40 MG VIAL IV PUSH ×2 (05:22→14:04)
[2024-03-13 05:57] LABS: Procalcitonin 0.2 ng/mL
[2024-03-13 08:40] LABS: Hematocrit 28.5 % (37.0-47.0); Hemoglobin 8.5 g/dL (12.0-15.0); Mean Corpuscular HGB Conc 29.8 g/dl (32-36); Mean Corpuscular Hemoglobin 31.4 pg (26-34); Mean Corpuscular Volume 105.2 fl (80-100); Platelet Count Result 237 k/mm3 (150-375); Red Blood Count 2.71 M/mm3 (4.2-5.4); Red Cell Distribution Width 16.9 % (11.5-14.5); White Blood Count 17.5 K/mm3 (4.5-10.0)
[2024-03-13] MEDS: DULoxetine HCL 30 MG CAPSULE.DR PO (09:18)
[2024-03-13] MEDS: FERROUS SULFATE 325 MG TABLET DR 650 MG BY MOUTH (09:18)
[2024-03-13] MEDS: PREGABALIN (*CRX) 75 MG CAPSULE 150 MG PO (09:18)
[2024-03-13] MEDS: ACETAMINOPHEN 500 MG TABLET 1000 MG PO ×2 (09:18→20:36)
[2024-03-13] MEDS: FOLIC ACID 1 MG TABLET PO (09:18)
[2024-03-13] MEDS: ANASTROZOLE (*CHEMO) 1 MG TABLET PO (09:18)
[2024-03-13] MEDS: DOXYCYCLINE 100 MG/NS 100 ML 100 MG/100 ML BAG IVPB (09:19)
[2024-03-13 09:21] LABS: Alanine Aminotransferase 18 U/L (6-35); Albumin Level 3.5 g/dL (3.5-5.1); Alkaline Phosphatase 85 U/L (38-126); Anion Gap 4 mmol/L (4-12); Aspartate Amino Transferase 20 U/L (14-36); Bilirubin,Total 0.2 mg/dL (0.2-1.3); Blood Urea Nitrogen 32 mg/dL (7-17); Calcium 10.7 mg/dL (8.4-10.2); Carbon Dioxide 36 mmol/L (22-30); Chloride 101 mmol/L (98-107); Estimated CRCL calculation 35 ml/min; Estimated Glomerular Filt Rate 50; Glucose 142 mg/dL (65-110); Potassium 4.7 mmol/L (3.4-5.0); Sodium 141 mmol/L (137-145)
[2024-03-13] MEDS: FLUTICASONE/UMECLIDIN/VILANTER 100-62.5-25 MCG ELLIPTA 1 PUFF INHALATION (09:35)
[2024-03-13 10:05] LABS: Hematocrit 28.2 % (37.0-47.0); Hemoglobin 8.3 g/dL (12.0-15.0); Mean Corpuscular HGB Conc 29.4 g/dl (32-36); Mean Corpuscular Hemoglobin 30.7 pg (26-34); Mean Corpuscular Volume 104.4 fl (80-100); Mean Platelet Volume 9.7 fl (7.4-10.4); Platelet Count Result 230 k/mm3 (150-375); Red Cell Distribution Width 16.9 % (11.5-14.5); White Blood Count 16.6 K/mm3 (4.5-10.0)
--- NOTE | 2024-03-13 14:51 | PM.IMPN ---
Progress Note: A&P Assessment and Plan (1) COPD exacerbation: Code(s): J44.1 - Chronic obstructive pulmonary disease with (acute) exacerbation Status: Acute Assessment and Plan: Admit to IMU Unable to tolerate BiPAP High-flow nasal cannula (2) Respiratory failure: Qualifiers: Chronicity: acute on chronic Respiratory failure complication: unspecified whether with hypoxia or hypercapnia Qualified Code(s): J96.20 - Acute and chronic respiratory failure, unspecified whether with hypoxia or hypercapnia Code(s): J96.90 - Respiratory failure, unspecified, unspecified whether with hypoxia or hypercapnia Status: Acute Assessment and Plan: Unable to tolerate BiPAP (3) Chronic renal insufficiency, stage III (moderate): Code(s): N18.30 - Chronic kidney disease, stage 3 unspecified Status: Acute Assessment and Plan: Continue to monitor (4) Primary cancer of left lower lobe of lung: Code(s): C34.32 - Malignant neoplasm of lower lobe, left bronchus or lung Status: Acute Assessment and Plan: Follow-up in outpatient setting (5) Dependence on continuous supplemental oxygen: Code(s): Z99.81 - Dependence on supplemental oxygen Status: Acute Assessment and Plan: High-flow nasal cannula (6) Tobacco abuse: Code(s): Z72.0 - Tobacco use Status: Acute Assessment and Plan: Nicotine patch as needed (7) Pleural effusion: Code(s): J90 - Pleural effusion, not elsewhere classified Status: Acute Assessment and Plan: Chest ultrasound show no pleural effusion Plan COPD exacerbation -Current smoker -currently on HFNC at 40L -CXR shows left pleural effusion but not on chest US -Vital signs improved and stable -Ceftriaxone and Azithromycin -DC Methylprednisone 40mg IV q 6hrs -Oral Prednisone taper -negative nasal MRSA -encourage oral intake Subjective Date/time seen: 03/13/24 14:51 Interval history: Patient has increased WBC 16.6 possibly due to steroids. Switched to oral steroids and will taper. Patient is on high-flow nasal cannula. Will continue to titrate oxygen as needed Review of Systems Review of Systems: ROS unobtainable: Yes other (Patient is on BiPAP) Exam Narrative: Patient is sitting in bed on BiPAP Const: General: comfortable, no acute distress, well developed, alert, awake and average body habitus Nutritional Appearance: average body habitus Orientation/consciousness: patient oriented x3 Other: On BiPAP HENMT: Head: normal to inspection, normocephalic and atraumatic Ears: hearing grossly normal bilaterally Face/Nose/Sinus: normal facial exam Face and sinus: normal facial exam Eyes: General: appearance normal, both eyes and all related structures Pupils: Equal, round and reactive pupils present EOM: EOMs intact bilaterally Neck: Neck: full ROM, no lymphadenopathy and no JVD Thyroid: thyroid normal Lymphatic: no lymphadenopathy noted Resp: Effort & Inspection: normal respiratory effort and able to speak in complete sentences Auscultation: wheezes and diminished lung sounds Cardio: Jugular venous distension: no JVD Rate: regular rate Rhythm: regular rhythm Heart sounds: S1 normal heart sound present, S2 normal heart sound present and Murmur heart sound present : General: Yes deferred Skin: Rashes: no rashes Wounds: no wounds Neuro: General: patient oriented x3, CN's II-XI intact bilaterally and Unable to assess gait Cranial nerves: Yes CN's II-XII intact bilaterally and Yes Equal, round and reactive pupils present Cognition (Neuro): normal cognition Speech: normal speech Gait exam (Neuro): Unable to assess gait Motor exam (neuro): 5/5 motor strength present throughout Extrem: General: normal to inspection, full ROM, no joint enlargement and no pedal edema Objective Data Vital Signs Vital Signs: Vital Signs - 24 hr 03/12/24 15:00 03/12/24 15:15 03/12/24 15:30 Temperature 99.4 F Pulse Rate 102 H Respiratory Rate 20 Blood Pressure 135/52 L Pulse Oximetry 78 L 91 Oxygen Delivery High Flow Nasal Cannula BiPAP Oxygen Flow Rate 7 Fraction of Inspired Oxygen 40 03/12/24 16:00 03/12/24 16:00 03/12/24 18:00 Temperature Pulse Rate 102 H 104 H Respiratory Rate 20 Blood Pressure Pulse Oximetry 94 94 Oxygen Delivery BiPAP High Flow Therapy with Na Oxygen Flow Rate 40 Fraction of Inspired Oxygen 40 60 03/12/24 18:00 03/12/24 20:00 03/12/24 20:00 Temperature Pulse Rate 105 H 99 Respiratory Rate Blood Pressure Pulse Oximetry 94 Oxygen Delivery High Flow Therapy with Na Oxygen Flow Rate 40 Fraction of Inspired Oxygen 45 03/12/24 20:15 03/12/24 20:15 03/12/24 20:24 Temperature Pulse Rate 98 98 94 Respiratory Rate 20 20 Blood Pressure Pulse Oximetry 93 Oxygen Delivery High Flow Therapy with Na Oxygen Flow Rate 40 Fraction of Inspired Oxygen 45 03/12/24 20:26 03/12/24 22:00 03/12/24 23:12 Temperature 99.0 F 99.0 F Pulse Rate 103 H 94 91 Respiratory Rate 20 20 Blood Pressure 135/68 125/64 Pulse Oximetry 90 91 Oxygen Delivery Oxygen Flow Rate Fraction of Inspired Oxygen 03/13/24 00:00 03/13/24 00:00 03/13/24 02:00 Temperature Pulse Rate 83 73 Respiratory Rate Blood Pressure Pulse Oximetry 92 Oxygen Delivery High Flow Therapy with Na Oxygen Flow Rate 40 Fraction of Inspired Oxygen 45 03/13/24 02:06 03/13/24 02:10 03/13/24 02:14 Temperature Pulse Rate 79 74 74 Respiratory Rate 20 20 Blood Pressure Pulse Oximetry 93 Oxygen Delivery High Flow Therapy with Na Oxygen Flow Rate 35 Fraction of Inspired Oxygen 45 03/13/24 04:00 03/13/24 04:00 03/13/24 04:18 Temperature 98.9 F Pulse Rate 75 86 Respiratory Rate 20 Blood Pressure 143/66 H Pulse Oximetry 93 93 Oxygen Delivery High Flow Therapy with Na Oxygen Flow Rate 35 Fraction of Inspired Oxygen 45 03/13/24 06:00 03/13/24 07:26 03/13/24 08:00 Temperature 97.7 F Pulse Rate 73 77 79 Respiratory Rate 22 H Blood Pressure 143/68 H Pulse Oximetry 95 Oxygen Delivery Oxygen Flow Rate Fraction of Inspired Oxygen 03/13/24 09:35 03/13/24 09:36 03/13/24 10:00 Temperature Pulse Rate 78 77 76 Respiratory Rate 20 Blood Pressure Pulse Oximetry 90 Oxygen Delivery High Flow Therapy with Na Oxygen Flow Rate 35 Fraction of Inspired Oxygen 45 03/13/24 11:25 03/13/24 12:00 03/13/24 12:00 Temperature 98.8 F Pulse Rate 80 79 Respiratory Rate 26 H Blood Pressure 130/65 Pulse Oximetry 91 91 Oxygen Delivery High Flow Therapy with Na Oxygen Flow Rate 35 Fraction of Inspired Oxygen 45 03/13/24 13:08 03/13/24 13:08 03/13/24 14:00 Temperature Pulse Rate 72 71 89 Respiratory Rate 20 Blood Pressure Pulse Oximetry 90 Oxygen Delivery High Flow Therapy with Na Oxygen Flow Rate 35 Fraction of Inspired Oxygen 45 Intake/Output Intake/Output: Intake & Output 03/10/24 03/11/24 03/12/24 03/13/24 23:59 23:59 23:59 23:59 Intake Total 200 2917.9 930 Output Total 575 400 Balance 200 2342.9 530 Meds/Results Medications: Active Medications Generic Name Dose Route Start Last Admin Trade Name Freq PRN Reason Stop Dose Admin Acetaminophen 1,000 mg 03/12/24 09:00 03/13/24 09:18 Acetaminophen 500 Mg Tablet PO 1,000 mg Q12HR GIA Administration Albuterol/Ipratropium 3 ml 03/11/24 20:00 03/13/24 13:04 Ipratropium 0.5 Mg/Albuterol Sulfate 2.5 Mg Ampul.Neb 3 Ml INHALATION 3 ml Q6HRT GIA Administration Anastrozole 1 mg 03/12/24 09:00 03/13/24 09:18 Anastrozole (*Chemo) 1 Mg Tablet PO 1 mg DAILY GIA Administration Cholestyramine Resin 4 gm 03/12/24 01:09 Cholestyramine Light 4 Gm Powd.Pack PO TIDWM PRN IBS Doxycycline Hyclate 100 mg 03/13/24 21:00 Doxycycline Hyclate 100 Mg Tablet PO 03/16/24 09:01 Q12HR GIA Duloxetine HCl 30 mg 03/12/24 09:00 03/13/24 09:18 Duloxetine Hcl 30 Mg Capsule.Dr PO 30 mg DAILY GIA Administration Ferrous Sulfate 650 mg 03/12/24 09:00 03/13/24 09:18 Ferrous Sulfate [address] BY MOUTH 650 mg DAILY GIA Administration Fluticasone/Umeclidinium/Vilanterol 1 puff 03/12/24 08:00 03/13/24 09:35 Fluticasone/Umeclidin/Vilanter 100-62.5-25 Mcg Ellipta INHALATION 1 puff DAILYRT GIA Administration Folic Acid 1 mg 03/12/24 09:00 03/13/24 09:18 Folic Acid 1 Mg Tablet PO 1 mg DAILY GIA Administration Ceftriaxone Sodium 1 gm in 50 mls @ 100 mls/hr 03/12/24 20:00 03/12/24 21:20 Rocephin 1 Gm/Ns 50 Ml IVPB Infused Q24H GIA Infusion Methylprednisolone Sodium Succinate 40 mg 03/12/24 22:00 03/13/24 14:04 Methylprednisolone Sod Succ 40 Mg Vial IV PUSH 40 mg Q8HR GIA Administration Pregabalin 150 mg 03/12/24 09:00 03/13/24 09:18 Pregabalin (*Crx) 75 Mg Capsule PO 150 mg DAILY GIA Administration Quetiapine Fumarate 25 mg 03/12/24 21:00 03/12/24 21:06 Quetiapine Fumarate 25 Mg Tablet PO 25 mg QHS GIA Administration Radiology Results: ITS Impressions Chest X-Ray 03/11/24 15:57 IMPRESSION: Right apical lung mass left-sided pleural effusion, as detailed Chest CTA 03/11/24 18:01 IMPRESSION: 1. No pulmonary embolus. 2. Pulmonary nodules with worsening from 01/16/2024, consistent with metastatic disease. 3. Bone lesion in L1, stable from 01/18/23, suspicious for metastatic disease. 4. Mild emphysema. Chest Ultrasound 03/11/24 18:01 IMPRESSION: 1. No left-sided pleural effusion. Labs Labs: Laboratory Results - last 24 hr 03/12/24 03/12/24 03/13/24 10:30 18:37 04:21 WBC RBC Hgb Hct MCV MCH MCHC RDW Plt Count MPV Sodium Potassium Chloride Carbon Dioxide Anion Gap BUN Creatinine Estim Creat Clear Calc Estimated GFR Glucose Calcium Total Bilirubin AST ALT Alkaline Phosphatase Total Protein Albumin Procalcitonin 0.2 Nasal MRSA (PCR) Not detected Crossmatch See Detail 03/13/24 03/13/24 08:33 09:51 WBC 17.5 H 16.6 H RBC 2.71 L 2.70 L Hgb 8.5 L 8.3 L Hct 28.5 L 28.2 L MCV 105.2 H 104.4 H MCH 31.4 30.7 MCHC 29.8 L 29.4 L RDW 16.9 H 16.9 H Plt Count 237 230 MPV 10.0 9.7 Sodium 141 Potassium 4.7 Chloride 101 Carbon Dioxide 36 H Anion Gap 4 BUN 32 H D Creatinine 1.07 H Estim Creat Clear Calc 35 Estimated GFR 50 L Glucose 142 H Calcium 10.7 H Total Bilirubin 0.2 AST 20 ALT 18 Alkaline Phosphatase 85 Total Protein 6.0 L Albumin 3.5 Procalcitonin Nasal MRSA (PCR) Crossmatch Hospitalist [facility] Advance Care Plan I have confirmed that the patient's Advanced Care Plan is present, code status is documented, or surrogate decision maker is listed in patient medical record.: Yes Medication Reconciliation I have utilized all available resources to obtain, update and review the patients current medications (includes all prescriptions, OTC, herbals, cannabis, and nutritional supplements).: Yes
[2024-03-13] MEDS: DOXYCYCLINE HYCLATE 100 MG TABLET PO (20:36)
[2024-03-13] MEDS: QUEtiapine FUMARATE 25 MG TABLET PO (20:36)
[2024-03-14] VITALS (25 sets, daily range): BP systolic 132–155; BP diastolic 64–80; PULSE 64–88; RESP 18–20; TEMP 36.7–36.9; O2SAT 91–95
[2024-03-14] MEDS: IPRATROPIUM 0.5 MG/ALBUTEROL SULFATE 2.5 MG AMPUL.NEB 3 ML INHALATION ×4 (01:32→19:41)
[2024-03-14 05:07] LABS: Hematocrit 27.9 % (37.0-47.0); Hemoglobin 8.2 g/dL (12.0-15.0); Mean Corpuscular HGB Conc 29.4 g/dl (32-36); Mean Corpuscular Hemoglobin 30.8 pg (26-34); Mean Corpuscular Volume 104.9 fl (80-100); Platelet Count Result 215 k/mm3 (150-375); Red Blood Count 2.66 M/mm3 (4.2-5.4); Red Cell Distribution Width 15.7 % (11.5-14.5); White Blood Count 13.5 K/mm3 (4.5-10.0)
[2024-03-14 05:18] LABS: Alanine Aminotransferase 16 U/L (6-35); Albumin Level 3.3 g/dL (3.5-5.1); Alkaline Phosphatase 83 U/L (38-126); Anion Gap 3 mmol/L (4-12); Aspartate Amino Transferase 20 U/L (14-36); Bilirubin,Total 0.2 mg/dL (0.2-1.3); Blood Urea Nitrogen 40 mg/dL (7-17); Calcium 10.6 mg/dL (8.4-10.2); Carbon Dioxide 35 mmol/L (22-30); Chloride 102 mmol/L (98-107); Estimated CRCL calculation 33 ml/min; Estimated Glomerular Filt Rate 46; Glucose 99 mg/dL (65-110); Potassium 4.7 mmol/L (3.4-5.0); Sodium 140 mmol/L (137-145)
[2024-03-14] MEDS: FLUTICASONE/UMECLIDIN/VILANTER 100-62.5-25 MCG ELLIPTA 1 PUFF INHALATION (07:40)
[2024-03-14] MEDS: DOXYCYCLINE HYCLATE 100 MG TABLET PO (09:41)
[2024-03-14] MEDS: PREGABALIN (*CRX) 75 MG CAPSULE 150 MG PO (09:41)
[2024-03-14] MEDS: ACETAMINOPHEN 500 MG TABLET 1000 MG PO ×2 (09:42→20:27)
[2024-03-14] MEDS: ANASTROZOLE (*CHEMO) 1 MG TABLET PO (09:42)
[2024-03-14] MEDS: FERROUS SULFATE 325 MG TABLET DR 650 MG BY MOUTH (09:42)
[2024-03-14] MEDS: FOLIC ACID 1 MG TABLET PO (09:42)
[2024-03-14] MEDS: DULoxetine HCL 30 MG CAPSULE.DR PO (09:42)
[2024-03-14] MEDS: predniSONE 20 MG TABLET 60 MG PO (09:42)
[2024-03-14] MEDS: levoFLOXacin 750 MG TABLET PO (12:12)
[2024-03-14] MEDS: oxyBUTYnin CHLORIDE 2.5 MG TAB PO ×2 (12:13→16:49)
--- NOTE | 2024-03-14 14:47 | PM.IMPN ---
Progress Note: A&P Assessment and Plan (1) COPD exacerbation: Code(s): J44.1 - Chronic obstructive pulmonary disease with (acute) exacerbation Status: Acute Assessment and Plan: Admit to IMU Unable to tolerate BiPAP High-flow nasal cannula (2) Respiratory failure: Qualifiers: Chronicity: acute on chronic Respiratory failure complication: unspecified whether with hypoxia or hypercapnia Qualified Code(s): J96.20 - Acute and chronic respiratory failure, unspecified whether with hypoxia or hypercapnia Code(s): J96.90 - Respiratory failure, unspecified, unspecified whether with hypoxia or hypercapnia Status: Acute Assessment and Plan: Unable to tolerate BiPAP (3) Chronic renal insufficiency, stage III (moderate): Code(s): N18.30 - Chronic kidney disease, stage 3 unspecified Status: Acute Assessment and Plan: Continue to monitor (4) Primary cancer of left lower lobe of lung: Code(s): C34.32 - Malignant neoplasm of lower lobe, left bronchus or lung Status: Acute Assessment and Plan: Follow-up in outpatient setting (5) Dependence on continuous supplemental oxygen: Code(s): Z99.81 - Dependence on supplemental oxygen Status: Acute Assessment and Plan: High-flow nasal cannula (6) Tobacco abuse: Code(s): Z72.0 - Tobacco use Status: Acute Assessment and Plan: Nicotine patch as needed (7) Pleural effusion: Code(s): J90 - Pleural effusion, not elsewhere classified Status: Acute Assessment and Plan: Chest ultrasound show no pleural effusion Plan COPD exacerbation -Current smoker -currently on HFNC at 40L -CXR shows left pleural effusion but not on chest US -Vital signs improved and stable -Ceftriaxone and Azithromycin -DC Methylprednisone 40mg IV q 6hrs -Oral Prednisone taper -negative nasal MRSA -encourage oral intake Subjective Date/time seen: 03/14/24 14:47 Interval history: Patient currently on high-flow nasal cannula with 35 L . If patient oxygen requirement stay same for few days then will discuss with care coordination and consult LTAC. Review of Systems Review of Systems: ROS unobtainable: Yes other (Patient is on BiPAP) Exam Narrative: Patient is sitting in bed on BiPAP Const: General: comfortable, no acute distress, well developed, alert, awake and average body habitus Nutritional Appearance: average body habitus Orientation/consciousness: patient oriented x3 Other: On BiPAP HENMT: Head: normal to inspection, normocephalic and atraumatic Ears: hearing grossly normal bilaterally Face/Nose/Sinus: normal facial exam Face and sinus: normal facial exam Eyes: General: appearance normal, both eyes and all related structures Pupils: Equal, round and reactive pupils present EOM: EOMs intact bilaterally Neck: Neck: full ROM, no lymphadenopathy and no JVD Thyroid: thyroid normal Lymphatic: no lymphadenopathy noted Resp: Effort & Inspection: normal respiratory effort and able to speak in complete sentences Auscultation: wheezes and diminished lung sounds Cardio: Jugular venous distension: no JVD Rate: regular rate Rhythm: regular rhythm Heart sounds: S1 normal heart sound present, S2 normal heart sound present and Murmur heart sound present : General: Yes deferred Skin: Rashes: no rashes Wounds: no wounds Neuro: General: patient oriented x3, CN's II-XI intact bilaterally and Unable to assess gait Cranial nerves: Yes CN's II-XII intact bilaterally and Yes Equal, round and reactive pupils present Cognition (Neuro): normal cognition Speech: normal speech Gait exam (Neuro): Unable to assess gait Motor exam (neuro): 5/5 motor strength present throughout Extrem: General: normal to inspection, full ROM, no joint enlargement and no pedal edema Objective Data Vital Signs Vital Signs: Vital Signs - 24 hr 03/13/24 15:50 03/13/24 16:00 03/13/24 18:00 Temperature 97.9 F Pulse Rate 87 86 96 Respiratory Rate 22 H Blood Pressure 148/67 H Pulse Oximetry 95 Oxygen Delivery Oxygen Flow Rate Fraction of Inspired Oxygen 03/13/24 19:12 03/13/24 19:12 03/13/24 19:20 Temperature 98.5 F Pulse Rate 87 84 Respiratory Rate 20 18 Blood Pressure 135/62 Pulse Oximetry 90 93 Oxygen Delivery High Flow Therapy with Na Oxygen Flow Rate 35 Fraction of Inspired Oxygen 45 03/13/24 19:23 03/13/24 20:00 03/13/24 20:00 Temperature Pulse Rate 88 90 Respiratory Rate 20 Blood Pressure Pulse Oximetry 92 Oxygen Delivery High Flow Therapy with Na Oxygen Flow Rate 35 Fraction of Inspired Oxygen 45 03/13/24 22:00 03/13/24 23:48 03/14/24 00:00 Temperature 98.0 F Pulse Rate 76 82 Respiratory Rate 18 Blood Pressure 150/66 H Pulse Oximetry 92 94 Oxygen Delivery High Flow Therapy with Na Oxygen Flow Rate 35 Fraction of Inspired Oxygen 45 03/14/24 00:00 03/14/24 01:32 03/14/24 01:32 Temperature Pulse Rate 74 74 Respiratory Rate 18 Blood Pressure Pulse Oximetry 94 Oxygen Delivery High Flow Therapy with Na Oxygen Flow Rate 35 Fraction of Inspired Oxygen 45 03/14/24 01:42 03/14/24 02:00 03/14/24 04:00 Temperature Pulse Rate 68 68 64 Respiratory Rate 18 Blood Pressure Pulse Oximetry Oxygen Delivery Oxygen Flow Rate Fraction of Inspired Oxygen 03/14/24 04:00 03/14/24 04:00 03/14/24 06:00 Temperature 98.0 F Pulse Rate 74 67 Respiratory Rate 18 Blood Pressure 154/80 H Pulse Oximetry 94 95 Oxygen Delivery High Flow Therapy with Na Oxygen Flow Rate 35 Fraction of Inspired Oxygen 45 03/14/24 07:41 03/14/24 07:41 03/14/24 07:58 Temperature Pulse Rate 71 71 65 Respiratory Rate 20 20 20 Blood Pressure Pulse Oximetry 91 Oxygen Delivery High Flow Therapy with Na Oxygen Flow Rate 35 Fraction of Inspired Oxygen 45 03/14/24 08:00 03/14/24 08:02 03/14/24 11:16 Temperature 98.3 F 98.3 F Pulse Rate 67 80 Respiratory Rate 18 20 Blood Pressure 149/68 H 132/66 Pulse Oximetry 93 93 92 Oxygen Delivery High Flow Nasal Cannula Oxygen Flow Rate 35 Fraction of Inspired Oxygen 40 03/14/24 13:47 03/14/24 13:47 03/14/24 14:00 Temperature Pulse Rate 78 78 84 Respiratory Rate 20 20 20 Blood Pressure Pulse Oximetry 91 Oxygen Delivery High Flow Therapy with Na Oxygen Flow Rate 35 Fraction of Inspired Oxygen 40 Intake/Output Intake/Output: Intake & Output 03/11/24 03/12/24 03/13/24 03/14/24 23:59 23:59 23:59 23:59 Intake Total 200 2917.9 1720 480 Output Total 575 900 350 Balance 200 2342.9 820 130 Meds/Results Medications: Active Medications Generic Name Dose Route Start Last Admin Trade Name Freq PRN Reason Stop Dose Admin Acetaminophen 1,000 mg 03/12/24 09:00 03/14/24 09:42 Acetaminophen 500 Mg Tablet PO 1,000 mg Q12HR GIA Administration Albuterol/Ipratropium 3 ml 03/11/24 20:00 03/14/24 13:47 Ipratropium 0.5 Mg/Albuterol Sulfate 2.5 Mg Ampul.Neb 3 Ml INHALATION 3 ml Q6HRT GIA Administration Anastrozole 1 mg 03/12/24 09:00 03/14/24 09:42 Anastrozole (*Chemo) 1 Mg Tablet PO 1 mg DAILY GIA Administration Cholestyramine Resin 4 gm 03/12/24 01:09 Cholestyramine Light 4 Gm Powd.Pack PO TIDWM PRN IBS Duloxetine HCl 30 mg 03/12/24 09:00 03/14/24 09:42 Duloxetine Hcl 30 Mg Capsule.Dr PO 30 mg DAILY GIA Administration Ferrous Sulfate 650 mg 03/15/24 12:00 Ferrous Sulfate [address] BY MOUTH DAILY@1200 [facility] Fluticasone/Umeclidinium/Vilanterol 1 puff 03/12/24 08:00 03/14/24 07:40 Fluticasone/Umeclidin/Vilanter 100-62.5-25 Mcg Ellipta INHALATION 1 puff DAILYRT GIA Administration Folic Acid 1 mg 03/12/24 09:00 03/14/24 09:42 Folic Acid 1 Mg Tablet PO 1 mg DAILY GIA Administration Levofloxacin 750 mg 03/14/24 10:50 03/14/24 12:12 Levofloxacin 750 Mg Tablet PO 03/18/24 09:01 750 mg Q48HR GIA Administration Oxybutynin Chloride 2.5 mg 03/14/24 13:00 03/14/24 12:13 Oxybutynin Chloride 2.5 Mg Tab PO 2.5 mg TID GIA Administration Prednisone 60 mg 03/14/24 08:00 03/14/24 09:42 Prednisone 20 Mg Tablet PO 03/16/24 12:00 60 mg DAILY@0800 [facility] Administration Pregabalin 150 mg 03/12/24 09:00 03/14/24 09:41 Pregabalin (*Crx) 75 Mg Capsule PO 150 mg DAILY GIA Administration Quetiapine Fumarate 25 mg 03/12/24 21:00 03/13/24 20:36 Quetiapine Fumarate 25 Mg Tablet PO 25 mg QHS GIA Administration Radiology Results: ITS Impressions Chest X-Ray 03/11/24 15:57 IMPRESSION: Right apical lung mass left-sided pleural effusion, as detailed Chest CTA 03/11/24 18:01 IMPRESSION: 1. No pulmonary embolus. 2. Pulmonary nodules with worsening from 01/16/2024, consistent with metastatic disease. 3. Bone lesion in L1, stable from 01/18/23, suspicious for metastatic disease. 4. Mild emphysema. Chest Ultrasound 03/11/24 18:01 IMPRESSION: 1. No left-sided pleural effusion. Labs Labs: Laboratory Results - last 24 hr 03/12/24 03/14/24 08:15 04:38 WBC 13.5 H RBC 2.66 L Hgb 8.2 L Hct 27.9 L MCV 104.9 H MCH 30.8 MCHC 29.4 L RDW 15.7 H Plt Count 215 MPV 10.0 Expiratory Pressure 5 Inspiratory Pressure 15 Sodium 140 Potassium 4.7 Chloride 102 Carbon Dioxide 35 H Anion Gap 3 L BUN 40 H Creatinine 1.15 H Estim Creat Clear Calc 33 Estimated GFR 46 L Glucose 99 Calcium 10.6 H Total Bilirubin 0.2 AST 20 ALT 16 Alkaline Phosphatase 83 Total Protein 6.0 L Albumin 3.3 L Hospitalist [facility] Advance Care Plan I have confirmed that the patient's Advanced Care Plan is present, code status is documented, or surrogate decision maker is listed in patient medical record.: Yes Medication Reconciliation I have utilized all available resources to obtain, update and review the patients current medications (includes all prescriptions, OTC, herbals, cannabis, and nutritional supplements).: Yes
[2024-03-14] MEDS: QUEtiapine FUMARATE 25 MG TABLET PO (20:27)
--- NOTE | 2024-03-14 22:13 | PM.PNPUL ---
Progress Note: A&P Assessment and Plan (1) Acute on chronic respiratory failure with hypoxia and hypercapnia: Code(s): J96.21 - Acute and chronic respiratory failure with hypoxia; J96.22 - Acute and chronic respiratory failure with hypercapnia Status: Acute Assessment and Plan: She has chronic CO2 retention, prior blood gases show this, she is on oxygen at home, on admission was hypoxemic, required increase oxygen, CO2 was elevated, improved on BiPAP. (2) COPD (chronic obstructive pulmonary disease): Qualifiers: COPD type: unspecified COPD Qualified Code(s): J44.9 - Chronic obstructive pulmonary disease, unspecified Code(s): J44.9 - Chronic obstructive pulmonary disease, unspecified Status: Acute Assessment and Plan: Has long history of COPD, at home takes Breztri and prn albuterol. She has mild emphysema radiographically. * 02/21/2020 PFT = FEV1 is 1.04 L after bronchodilator administration, TLC 71% mild restriction, DLCO 35%, DLCO/VA 79% Continue bronchodilator therapy and p.r.n. bronchodilators. (3) Lung cancer: Code(s): C34.90 - Malignant neoplasm of unspecified part of unspecified bronchus or lung Status: Acute Assessment and Plan: She has increasing size of right upper lobe nodules, increased in size since January 20, 2024. The 1.3 cm nodule is now 1.4 cm, the 1 cm is 1.3 cm, and she has other smaller nodules. She had a partial right upper lobectomy. She has no additional plans for radiation at this point. She will need oncology evaluation for these developments, when she is over this episode and admission. Other nodules include RLL 3 mm, TRISHA 3 mm. Peripheral radiation fibrosis in lingula. No pleural effusion. (4) Dependence on continuous supplemental oxygen: Code(s): Z99.81 - Dependence on supplemental oxygen Status: Acute Assessment and Plan: At home on 3 L at rest, 5 L with exertion, here did require more oxygenation initially, now can be weaned lower. (5) Tobacco abuse: Code(s): Z72.0 - Tobacco use Status: Acute Assessment and Plan: Smoked until this admission; lives alone; has smoked 60 years, now half pack per day. 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 Dr STALLINGS changed to oral steroids, same antibiotics. Subjective Date/time seen: 03/14/24 22:13 Interval history: 03/14/24; Feels better, less short of breath. She likes the Airvo, however the O2 level is staying at 40-45% and 35 L/min. Not able to wean. She wore BiPAP for a few hours today. 03/12/2024, new consult; May Deatheratanvi is a 78 year old female admitted with increased shortness of breath. She was last seen in our clinic 01/09/2024; has COPD, tobacco dependence, chronic hypoxic respiratory failure on O2; 3L with rest, 5 L with exertion; non-small cell lung CA now with 2 synchronous RUL lung cancers and an oligorecurrent from breast primary lesion involving T12 spine. She had a wedge resection in the RUL. She had a chest CT 03/04/24 showing RUL nodule 14 mm. She tells me that she had increased cough with wheezing, fatigue for 2-3 days prior to admission; she has been using her inhaler more frequently. She denies any recent fever, chest pain, abdominal pain. She has not been around any sick contacts. Her wbc was normal 5.0, anemia 7.3/25% and March 12 today dropped to 6.7 and 23%. No obvious bleeding. She has acute on chronic hypercapnic hypoxemic respiratory failure initially blood gas pH 7.30 pCO2 76.8, PO2 166 H CO3 37.3 on 15 L. After BiPAP 15/5 and 40% her blood gas has normalized, see below. Her CTA does not show a pulmonary embolus. She has pulmonary nodules that are worsening compared to January 16, 2024 consistent with metastatic disease and a stable bone lesion in L1. PMH: 1) non small cell lung CA RUL, s/p SBRT therapy July 2022 for RUL lung cancer, SBRT 09/2023-10/2023 for 2 RUL nodules and breast primary lesion involving T12 spine. history of RUL wedge resection, follows Dr. Michaud. 2) history of breast cancer 2006 s/p lumpectomy. 3) Rheumatoid arthritis on Taltz, sees Dr. Greer. DATA * Mar 11 all serology negative flu A/B, RSV COVID * AFSHIN 02/27/2018 AFSHIN 1:320 nucleolar pattern * Mar 11 = wbc 5, H/H 7.3, 25%, plt 220 Mar 12 = 6.8, H/H 6.7/ 23%, 195 K * ABGs ; she has adequate oxygenation, her initial hypercapnia has improved and no longer requires the BiPAP 15/5 which is a really high a difference between the inspiratory and expiratory pressure. I am going to try Airvo to oxygenate and it does have a small amount of PEEP. 06/22///// pH [id number] pCO2 [id number] pO2 56 06370 HCO3 [id number] Sat 88.6%98%94.5% Hbg 10.3 g7.5 g7.3 g O2 3 L15 LBiPAP 40% * Chest CTA 03/11/24 = There is mild elevation of left hemidiaphragm. There are changes of wedge resection in right lung upper lobe. There is a 13 mm nodule in right upper lobe. There is a 14 mm nodule in right upper lobe. There is a 10 mm nodule in right lower lobe. There is a 5 mm nodule in left upper lobe. There is a 18 mm nodule in lingula. There is mild atelectasis bilaterally. No pleural effusion. The heart size is normal. No pericardial effusion. There is no pulmonary embolus. There is a 4.1 cm cyst in the spleen. There is a 3.7 cm cyst in left kidney. There are old fractures multiple left rib fractures. There is severe cervical and thoracic spondylosis. There is a mixed lytic and sclerotic lesion in L1 vertebral body. IMPRESSION: 1. No pulmonary embolus. 2. Pulmonary nodules with worsening from 01/16/2024, consistent with metastatic disease. 3. Bone lesion in L1, stable from 01/18/23, suspicious for metastatic disease. 4. Mild emphysema. 02/21/2020 PFT = FEV1 is 1.04 L after bronchodilator administration, TLC 71% mild restriction, DLCO 35%, DLCO/VA 79% after bronchodilator FVC 1.56 L 67% +15%, 1.79 L, 77% FEV1 0.94 L 58% +10%, 1.04 L, 64% FEV1/FVC 60% RCK37-44% 0.35 L 17% TLC 2.82 L 71% RV 1.26 L 78% ERV RV/TLC 45% DLCO 6.6, 35% DLCO/VA 2.81, 79% Review of Systems Review of Systems: All systems reviewed & are unremarkable except as noted in HPI and below Exam Narrative: GEN: Alert, oriented, not in distress. 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, as she stopped the chemotherapy she developed the peripheral neuropathy PSYCH: normal thought and speech Objective Data Vital Signs Vital Signs: Vital Signs - 24 hr 03/13/24 23:48 03/14/24 00:00 03/14/24 00:00 Temperature 36.7 C Pulse Rate 82 74 Respiratory Rate 18 Blood Pressure 150/66 H Pulse Oximetry 92 94 Oxygen Delivery High Flow Therapy with Na Oxygen Flow Rate 35 Fraction of Inspired Oxygen 45 03/14/24 01:32 03/14/24 01:32 03/14/24 01:42 Temperature Pulse Rate 74 68 Respiratory Rate 18 18 Blood Pressure Pulse Oximetry 94 Oxygen Delivery High Flow Therapy with Na Oxygen Flow Rate 35 Fraction of Inspired Oxygen 45 03/14/24 02:00 03/14/24 04:00 03/14/24 04:00 Temperature Pulse Rate 68 64 Respiratory Rate Blood Pressure Pulse Oximetry 94 Oxygen Delivery High Flow Therapy with Na Oxygen Flow Rate 35 Fraction of Inspired Oxygen 45 03/14/24 04:00 03/14/24 06:00 03/14/24 07:41 Temperature 36.7 C Pulse Rate 74 67 71 Respiratory Rate 18 20 Blood Pressure 154/80 H Pulse Oximetry 95 91 Oxygen Delivery High Flow Therapy with Na Oxygen Flow Rate 35 Fraction of Inspired Oxygen 45 03/14/24 07:41 03/14/24 07:58 03/14/24 08:00 Temperature Pulse Rate 71 65 Respiratory Rate 20 20 Blood Pressure Pulse Oximetry 93 Oxygen Delivery High Flow Nasal Cannula Oxygen Flow Rate 35 Fraction of Inspired Oxygen 40 03/14/24 08:00 03/14/24 08:02 03/14/24 10:00 Temperature 36.8 C Pulse Rate 83 67 78 Respiratory Rate 18 Blood Pressure 149/68 H Pulse Oximetry 93 Oxygen Delivery Oxygen Flow Rate Fraction of Inspired Oxygen 03/14/24 11:16 03/14/24 12:00 03/14/24 13:47 Temperature 36.8 C Pulse Rate 80 78 78 Respiratory Rate 20 20 Blood Pressure 132/66 Pulse Oximetry 92 91 Oxygen Delivery High Flow Therapy with Na Oxygen Flow Rate 35 Fraction of Inspired Oxygen 40 03/14/24 13:47 03/14/24 14:00 03/14/24 14:00 Temperature Pulse Rate 78 84 80 Respiratory Rate 20 20 Blood Pressure Pulse Oximetry Oxygen Delivery Oxygen Flow Rate Fraction of Inspired Oxygen 03/14/24 16:00 03/14/24 16:13 03/14/24 18:00 Temperature 36.9 C Pulse Rate 76 83 88 Respiratory Rate 19 Blood Pressure 146/72 H Pulse Oximetry 94 Oxygen Delivery Oxygen Flow Rate Fraction of Inspired Oxygen 03/14/24 19:25 03/14/24 19:41 03/14/24 19:45 Temperature 36.8 C Pulse Rate 86 84 77 Respiratory Rate 19 20 20 Blood Pressure 155/72 H Pulse Oximetry 92 95 Oxygen Delivery High Flow Therapy with Na Oxygen Flow Rate 35 Fraction of Inspired Oxygen 40 03/14/24 19:50 03/14/24 20:00 Temperature Pulse Rate 78 Respiratory Rate 20 Blood Pressure Pulse Oximetry 95 Oxygen Delivery High Flow Therapy with Na Oxygen Flow Rate 35 Fraction of Inspired Oxygen 40 Intake/Output Intake/Output: Intake & Output 03/11/24 03/12/24 03/13/24 03/14/24 23:59 23:59 23:59 23:59 Intake Total 200 2917.9 1720 1220 Output Total 083 901 4390 Balance 200 2342.9 820 -80 Meds/Results Medications: Active Medications Generic Name Dose Route Start Last Admin Trade Name Freq PRN Reason Stop Dose Admin Acetaminophen 1,000 mg 03/12/24 09:00 03/14/24 20:27 Acetaminophen 500 Mg Tablet PO 1,000 mg Q12HR GIA Administration Albuterol/Ipratropium 3 ml 03/11/24 20:00 03/14/24 19:41 Ipratropium 0.5 Mg/Albuterol Sulfate 2.5 Mg Ampul.Neb 3 Ml INHALATION 3 ml Q6HRT GIA Administration Anastrozole 1 mg 03/12/24 09:00 03/14/24 09:42 Anastrozole (*Chemo) 1 Mg Tablet PO 1 mg DAILY GIA Administration Cholestyramine Resin 4 gm 03/12/24 01:09 Cholestyramine Light 4 Gm Powd.Pack PO TIDWM PRN IBS Duloxetine HCl 30 mg 03/12/24 09:00 03/14/24 09:42 Duloxetine Hcl 30 Mg Capsule.Dr PO 30 mg DAILY GIA Administration Ferrous Sulfate 650 mg 03/15/24 12:00 Ferrous Sulfate [address] BY MOUTH DAILY@1200 [facility] Fluticasone/Umeclidinium/Vilanterol 1 puff 03/12/24 08:00 03/14/24 07:40 Fluticasone/Umeclidin/Vilanter 100-62.5-25 Mcg Ellipta INHALATION 1 puff DAILYRT GIA Administration Folic Acid 1 mg 03/12/24 09:00 03/14/24 09:42 Folic Acid 1 Mg Tablet PO 1 mg DAILY GIA Administration Levofloxacin 750 mg 03/14/24 10:50 03/14/24 12:12 Levofloxacin 750 Mg Tablet PO 03/18/24 09:01 750 mg Q48HR GIA Administration Oxybutynin Chloride 2.5 mg 03/14/24 13:00 03/14/24 16:49 Oxybutynin Chloride 2.5 Mg Tab PO 2.5 mg TID GIA Administration Prednisone 60 mg 03/14/24 08:00 03/14/24 09:42 Prednisone 20 Mg Tablet PO 03/16/24 12:00 60 mg DAILY@0800 GIA Administration Pregabalin 150 mg 03/12/24 09:00 03/14/24 09:41 Pregabalin (*Crx) 75 Mg Capsule PO 150 mg DAILY GIA Administration Quetiapine Fumarate 25 mg 03/12/24 21:00 03/14/24 20:27 Quetiapine Fumarate 25 Mg Tablet PO 25 mg QHS GIA Administration Radiology Results: ITS Impressions Chest X-Ray 03/11/24 15:57 IMPRESSION: Right apical lung mass left-sided pleural effusion, as detailed Chest CTA 03/11/24 18:01 IMPRESSION: 1. No pulmonary embolus. 2. Pulmonary nodules with worsening from 01/16/2024, consistent with metastatic disease. 3. Bone lesion in L1, stable from 01/18/23, suspicious for metastatic disease. 4. Mild emphysema. Chest Ultrasound 03/11/24 18:01 IMPRESSION: 1. No left-sided pleural effusion. Labs Labs: Laboratory Results - last 24 hr 03/12/24 03/14/24 08:15 04:38 WBC 13.5 H RBC 2.66 L Hgb 8.2 L Hct 27.9 L MCV 104.9 H MCH 30.8 MCHC 29.4 L RDW 15.7 H Plt Count 215 MPV 10.0 Expiratory Pressure 5 Inspiratory Pressure 15 Sodium 140 Potassium 4.7 Chloride 102 Carbon Dioxide 35 H Anion Gap 3 L BUN 40 H Creatinine 1.15 H Estim Creat Clear Calc 33 Estimated GFR 46 L Glucose 99 Calcium 10.6 H Total Bilirubin 0.2 AST 20 ALT 16 Alkaline Phosphatase 83 Total Protein 6.0 L Albumin 3.3 L
[2024-03-15] VITALS (26 sets, daily range): BP systolic 137–150; BP diastolic 63–70; PULSE 55–90; RESP 17–20; TEMP 36.6–37; O2SAT 89–95
[2024-03-15] MEDS: IPRATROPIUM 0.5 MG/ALBUTEROL SULFATE 2.5 MG AMPUL.NEB 3 ML INHALATION ×4 (01:42→19:07)
[2024-03-15 05:09] LABS: Mean Corpuscular Hemoglobin 31.1 pg (26-34); Mean Corpuscular Volume 103.8 fl (80-100); Mean Platelet Volume 10.1 fl (7.4-10.4); Platelet Count Result 243 k/mm3 (150-375); Red Blood Count 2.89 M/mm3 (4.2-5.4); Red Cell Distribution Width 14.7 % (11.5-14.5); White Blood Count 10.6 K/mm3 (4.5-10.0)
[2024-03-15 05:26] LABS: Alanine Aminotransferase 21 U/L (6-35); Albumin Level 3.3 g/dL (3.5-5.1); Alkaline Phosphatase 84 U/L (38-126); Anion Gap 3 mmol/L (4-12); Aspartate Amino Transferase 20 U/L (14-36); Bilirubin,Total 0.2 mg/dL (0.2-1.3); Blood Urea Nitrogen 42 mg/dL (7-17); Calcium 10.5 mg/dL (8.4-10.2); Carbon Dioxide 37 mmol/L (22-30); Chloride 101 mmol/L (98-107); Estimated CRCL calculation 28 ml/min; Estimated Glomerular Filt Rate 39; Glucose 103 mg/dL (65-110); Potassium 5.5 mmol/L (3.4-5.0); Sodium 141 mmol/L (137-145)
[2024-03-15] MEDS: PREGABALIN (*CRX) 75 MG CAPSULE 150 MG PO (08:26)
[2024-03-15] MEDS: ACETAMINOPHEN 500 MG TABLET 1000 MG PO ×2 (08:26→19:51)
[2024-03-15] MEDS: predniSONE 20 MG TABLET 60 MG PO (08:26)
[2024-03-15] MEDS: oxyBUTYnin CHLORIDE 2.5 MG TAB PO ×2 (08:27→17:32)
[2024-03-15] MEDS: DULoxetine HCL 30 MG CAPSULE.DR PO (08:27)
[2024-03-15] MEDS: FOLIC ACID 1 MG TABLET PO (08:27)
[2024-03-15] MEDS: ANASTROZOLE (*CHEMO) 1 MG TABLET PO (08:27)
[2024-03-15] MEDS: FLUTICASONE/UMECLIDIN/VILANTER 100-62.5-25 MCG ELLIPTA 1 PUFF INHALATION (09:09)
[2024-03-15] MEDS: SODIUM ZIRCONIUM CYCLOSILICATE 10 GM POWD.PACK PO (11:37)
--- NOTE | 2024-03-15 15:25 | P.PNIM_ITS ---
Progress Note: A&P Assessment and Plan (1) COPD exacerbation: Code(s): J44.1 - Chronic obstructive pulmonary disease with (acute) exacerbation Status: Acute Assessment and Plan: Admit to IMU Unable to tolerate BiPAP High-flow nasal cannula (2) Respiratory failure: Qualifiers: Chronicity: acute on chronic Respiratory failure complication: unspecified whether with hypoxia or hypercapnia Qualified Code(s): J96.20 - Acute and chronic respiratory failure, unspecified whether with hypoxia or hypercapnia Code(s): J96.90 - Respiratory failure, unspecified, unspecified whether with hypoxia or hypercapnia Status: Acute Assessment and Plan: Unable to tolerate BiPAP (3) Chronic renal insufficiency, stage III (moderate): Code(s): N18.30 - Chronic kidney disease, stage 3 unspecified Status: Acute Assessment and Plan: Continue to monitor (4) Primary cancer of left lower lobe of lung: Code(s): C34.32 - Malignant neoplasm of lower lobe, left bronchus or lung Status: Acute Assessment and Plan: Follow-up in outpatient setting (5) Dependence on continuous supplemental oxygen: Code(s): Z99.81 - Dependence on supplemental oxygen Status: Acute Assessment and Plan: High-flow nasal cannula (6) Tobacco abuse: Code(s): Z72.0 - Tobacco use Status: Acute Assessment and Plan: Nicotine patch as needed (7) Pleural effusion: Code(s): J90 - Pleural effusion, not elsewhere classified Status: Acute Assessment and Plan: Chest ultrasound show no pleural effusion Plan COPD exacerbation -Current smoker -currently on HFNC at 40L -CXR shows left pleural effusion but not on chest US -Vital signs improved and stable -Ceftriaxone and Azithromycin -DC Methylprednisone 40mg IV q 6hrs -Oral Prednisone taper -negative nasal MRSA -encourage oral intake Stress Urinary Incontinence -Ditropan TID -needs sling -outpatient follow-up with the urogynecologist Subjective Date/time seen: 03/15/24 15:25 Interval history: Patient is still in high-flow nasal cannula with 35 L. as mentioned previously patient needs urogynecology consult as outpatient due to the possibility of stress incontinence. Currently patient is on Ditropan 3 times a day. Review of Systems Review of Systems: ROS unobtainable: Yes other (Patient is on BiPAP) Exam Narrative: Patient is sitting in bed on BiPAP Const: General: comfortable, no acute distress, well developed, alert, awake and average body habitus Nutritional Appearance: average body habitus Orientation/consciousness: patient oriented x3 Other: On BiPAP HENMT: Head: normal to inspection, normocephalic and atraumatic Ears: hearing grossly normal bilaterally Face/Nose/Sinus: normal facial exam Face and sinus: normal facial exam Eyes: General: appearance normal, both eyes and all related structures Pupils: Equal, round and reactive pupils present EOM: EOMs intact bilaterally Neck: Neck: full ROM, no lymphadenopathy and no JVD Thyroid: thyroid normal Lymphatic: no lymphadenopathy noted Resp: Effort & Inspection: normal respiratory effort and able to speak in complete sentences Auscultation: wheezes and diminished lung sounds Cardio: Jugular venous distension: no JVD Rate: regular rate Rhythm: regular rhythm Heart sounds: S1 normal heart sound present, S2 normal heart sound present and Murmur heart sound present : General: Yes deferred Skin: Rashes: no rashes Wounds: no wounds Neuro: General: patient oriented x3, CN's II-XI intact bilaterally and Unable to assess gait Cranial nerves: Yes CN's II-XII intact bilaterally and Yes Equal, round and reactive pupils present Cognition (Neuro): normal cognition Speech: normal speech Gait exam (Neuro): Unable to assess gait Motor exam (neuro): 5/5 motor strength present throughout Extrem: General: normal to inspection, full ROM, no joint enlargement and no pedal edema Objective Data Vital Signs Vital Signs: Vital Signs - 24 hr 03/14/24 16:00 03/14/24 16:13 03/14/24 18:00 Temperature 98.4 F Pulse Rate 76 83 88 Respiratory Rate 19 Blood Pressure 146/72 H Pulse Oximetry 94 Oxygen Delivery Oxygen Flow Rate Fraction of Inspired Oxygen 03/14/24 19:25 03/14/24 19:41 03/14/24 19:45 Temperature 98.2 F Pulse Rate 86 84 77 Respiratory Rate 19 20 20 Blood Pressure 155/72 H Pulse Oximetry 92 95 Oxygen Delivery High Flow Therapy with Na Oxygen Flow Rate 35 Fraction of Inspired Oxygen 40 03/14/24 19:50 03/14/24 20:00 03/14/24 20:00 Temperature Pulse Rate 78 74 Respiratory Rate 20 Blood Pressure Pulse Oximetry 95 Oxygen Delivery High Flow Therapy with Na Oxygen Flow Rate 35 Fraction of Inspired Oxygen 40 03/14/24 22:00 03/14/24 23:49 03/15/24 00:00 Temperature 98.3 F Pulse Rate 71 70 Respiratory Rate 18 Blood Pressure 134/64 Pulse Oximetry 93 93 Oxygen Delivery High Flow Therapy with Na Oxygen Flow Rate 35 Fraction of Inspired Oxygen 40 03/15/24 00:00 03/15/24 01:44 03/15/24 01:53 Temperature Pulse Rate 71 72 78 Respiratory Rate 20 20 Blood Pressure Pulse Oximetry Oxygen Delivery Oxygen Flow Rate Fraction of Inspired Oxygen 03/15/24 02:00 03/15/24 03:31 03/15/24 04:00 Temperature 98.0 F Pulse Rate 60 61 Respiratory Rate 19 Blood Pressure 137/63 Pulse Oximetry 95 94 Oxygen Delivery High Flow Therapy with Na Oxygen Flow Rate 35 Fraction of Inspired Oxygen 40 03/15/24 04:00 03/15/24 06:00 03/15/24 08:00 Temperature Pulse Rate 56 L 63 78 Respiratory Rate 20 Blood Pressure Pulse Oximetry 89 L Oxygen Delivery High Flow Therapy with Na Oxygen Flow Rate 35 Fraction of Inspired Oxygen 40 03/15/24 08:00 03/15/24 08:19 03/15/24 09:10 Temperature 97.9 F Pulse Rate 90 78 Respiratory Rate 20 Blood Pressure 137/68 Pulse Oximetry 89 L 93 Oxygen Delivery High Flow Therapy with Na Oxygen Flow Rate 35 Fraction of Inspired Oxygen 40 03/15/24 09:10 03/15/24 09:23 03/15/24 10:00 Temperature Pulse Rate 80 80 69 Respiratory Rate 20 20 Blood Pressure Pulse Oximetry Oxygen Delivery Oxygen Flow Rate Fraction of Inspired Oxygen 03/15/24 11:53 03/15/24 12:00 03/15/24 12:00 Temperature 98.2 F Pulse Rate 66 66 85 Respiratory Rate 20 20 Blood Pressure 140/70 Pulse Oximetry 92 92 Oxygen Delivery High Flow Therapy with Na Oxygen Flow Rate 35 Fraction of Inspired Oxygen 40 03/15/24 14:00 03/15/24 14:31 03/15/24 14:31 Temperature Pulse Rate 86 73 Respiratory Rate 20 Blood Pressure Pulse Oximetry 92 Oxygen Delivery High Flow Therapy with Na Oxygen Flow Rate 35 Fraction of Inspired Oxygen 40 03/15/24 14:42 Temperature Pulse Rate 71 Respiratory Rate 20 Blood Pressure Pulse Oximetry Oxygen Delivery Oxygen Flow Rate Fraction of Inspired Oxygen Intake/Output Intake/Output: Intake & Output 01/28/25 01/29/25 01/30/25 01/31/25 23:59 23:59 23:59 23:59 Intake Total 2917.9 1720 1220 480 Output Total 893 308 4208 426 Balance 2342.9 820 -80 54 Meds/Results Medications: Active Medications Generic Name Dose Route Start Last Admin Trade Name Freq PRN Reason Stop Dose Admin Acetaminophen 1,000 mg 03/12/24 09:00 03/15/24 08:26 Acetaminophen 500 Mg Tablet PO 1,000 mg Q12HR GIA Administration Albuterol/Ipratropium 3 ml 03/11/24 20:00 03/15/24 14:30 Ipratropium 0.5 Mg/Albuterol Sulfate 2.5 Mg Ampul.Neb 3 Ml INHALATION 3 ml Q6HRT GIA Administration Anastrozole 1 mg 03/12/24 09:00 03/15/24 08:27 Anastrozole (*Chemo) 1 Mg Tablet PO 1 mg DAILY GIA Administration Cholestyramine Resin 4 gm 03/12/24 01:09 Cholestyramine Light 4 Gm Powd.Pack PO TIDWM PRN IBS Duloxetine HCl 30 mg 03/12/24 09:00 03/15/24 08:27 Duloxetine Hcl 30 Mg Capsule.Dr PO 30 mg DAILY GIA Administration Ferrous Sulfate 650 mg 03/15/24 12:00 Ferrous Sulfate [address] BY MOUTH DAILY@1200 GIA Fluticasone/Umeclidinium/Vilanterol 1 puff 03/12/24 08:00 03/15/24 09:09 Fluticasone/Umeclidin/Vilanter 100-62.5-25 Mcg Ellipta INHALATION 1 puff DAILYRT GIA Administration Folic Acid 1 mg 03/12/24 09:00 03/15/24 08:27 Folic Acid 1 Mg Tablet PO 1 mg DAILY GIA Administration Levofloxacin 750 mg 03/14/24 10:50 03/14/24 12:12 Levofloxacin 750 Mg Tablet PO 03/18/24 09:01 750 mg Q48HR GIA Administration Oxybutynin Chloride 2.5 mg 03/14/24 13:00 03/15/24 08:27 Oxybutynin Chloride 2.5 Mg Tab PO 2.5 mg TID GIA Administration Prednisone 60 mg 03/14/24 08:00 03/15/24 08:26 Prednisone 20 Mg Tablet PO 03/16/24 12:00 60 mg DAILY@0800 GIA Administration Pregabalin 150 mg 03/12/24 09:00 03/15/24 08:26 Pregabalin (*Crx) 75 Mg Capsule PO 150 mg DAILY GIA Administration Quetiapine Fumarate 25 mg 03/12/24 21:00 03/14/24 20:27 Quetiapine Fumarate 25 Mg Tablet PO 25 mg QHS GIA Administration Radiology Results: ITS Impressions Chest X-Ray 03/11/24 15:57 IMPRESSION: Right apical lung mass left-sided pleural effusion, as detailed Chest CTA 03/11/24 18:01 IMPRESSION: 1. No pulmonary embolus. 2. Pulmonary nodules with worsening from 01/16/2024, consistent with metastatic disease. 3. Bone lesion in L1, stable from 01/18/23, suspicious for metastatic disease. 4. Mild emphysema. Chest Ultrasound 03/11/24 18:01 IMPRESSION: 1. No left-sided pleural effusion. Labs Labs: Laboratory Results - last 24 hr 03/15/24 04:19 WBC 10.6 H RBC 2.89 L Hgb 9.0 L Hct 30.0 L MCV 103.8 H MCH 31.1 MCHC 30.0 L RDW 14.7 H Plt Count 243 MPV 10.1 Sodium 141 Potassium 5.5 H Chloride 101 Carbon Dioxide 37 H Anion Gap 3 L BUN 42 H Creatinine 1.32 H Estim Creat Clear Calc 28 Estimated GFR 39 L Glucose 103 Calcium 10.5 H Total Bilirubin 0.2 AST 20 ALT 21 Alkaline Phosphatase 84 Total Protein 6.0 L Albumin 3.3 L Hospitalist [facility] Advance Care Plan I have confirmed that the patient's Advanced Care Plan is present, code status is documented, or surrogate decision maker is listed in patient medical record.: Yes Medication Reconciliation I have utilized all available resources to obtain, update and review the patients current medications (includes all prescriptions, OTC, herbals, cannabis, and nutritional supplements).: Yes
--- NOTE | 2024-03-15 17:01 | PM.PNPUL ---
Progress Note: A&P Assessment and Plan (1) Acute on chronic respiratory failure with hypoxia and hypercapnia: Code(s): J96.21 - Acute and chronic respiratory failure with hypoxia; J96.22 - Acute and chronic respiratory failure with hypercapnia Status: Acute Assessment and Plan: She has chronic CO2 retention, prior blood gases show this, she is on oxygen at home, on admission was hypoxemic, required increase oxygen, CO2 was elevated, improved on BiPAP. She has high serum bicarbonate compensating. (2) COPD (chronic obstructive pulmonary disease): Qualifiers: COPD type: unspecified COPD Qualified Code(s): J44.9 - Chronic obstructive pulmonary disease, unspecified Code(s): J44.9 - Chronic obstructive pulmonary disease, unspecified Status: Acute Assessment and Plan: Has long history of COPD, at home takes Breztri and prn albuterol. She has mild emphysema radiographically. * 02/21/2020 PFT = FEV1 is 1.04 L after bronchodilator administration, TLC 71% mild restriction, DLCO 35%, DLCO/VA 79% Continue bronchodilator therapy and p.r.n. bronchodilators. (3) Lung cancer: Code(s): C34.90 - Malignant neoplasm of unspecified part of unspecified bronchus or lung Status: Acute Assessment and Plan: She has increasing size of right upper lobe nodules, increased in size since January 20, 2024. The 1.3 cm nodule is now 1.4 cm, the 1 cm is 1.3 cm, and she has other smaller nodules. She had a partial right upper lobectomy. She has no additional plans for radiation at this point. She will need oncology evaluation for these developments, when she is over this episode and admission. Other nodules include RLL 3 mm, TRISHA 3 mm. Peripheral radiation fibrosis in lingula. No pleural effusion. (4) Dependence on continuous supplemental oxygen: Code(s): Z99.81 - Dependence on supplemental oxygen Status: Acute Assessment and Plan: At home on 3 L at rest, 5 L with exertion, here did require more oxygenation initially, now can be weaned lower. (5) Tobacco abuse: Code(s): Z72.0 - Tobacco use Status: Acute Assessment and Plan: Smoked until this admission; lives alone; has smoked 60 years, now half pack per day. 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 Less short of breath, cough is less productive. Breathing more easily. Oral steroids. Improved, she thinks she is getting closer to baseline. no changes planned. Subjective Date/time seen: 03/15/24 17:01 Interval history: 03/15/24; Remains improved compared to admission, still on Airvo as this is more comfortable. She tells me that she used BiPAP last night, lower settings, 12/7, for several hours if she is remembering correctly. Sat is 93-94% on 35 L/min and 40%. Airvo is easier to wean than nasal cannula O2. Even though the flow and FiO2 are high, it can be dropped quickly in the next day to try to wean and get her ready for discharge. K+ is high today, 5.5. See labs below, DATA. BUN and creat elevated, HCO3 37. 03/14/24; Feels better, less short of breath. She likes the Airvo, however the O2 level is staying at 40-45% and 35 L/min. Not able to wean. She wore BiPAP for a few hours today. 03/12/2024, new consult; May Deatherage is a 78 year old female admitted with increased shortness of breath. She was last seen in our clinic 01/09/2024; has COPD, tobacco dependence, chronic hypoxic respiratory failure on O2; 3L with rest, 5 L with exertion; non-small cell lung CA now with 2 synchronous RUL lung cancers and an oligorecurrent from breast primary lesion involving T12 spine. She had a wedge resection in the RUL. She had a chest CT 03/04/24 showing RUL nodule 14 mm. She tells me that she had increased cough with wheezing, fatigue for 2-3 days prior to admission; she has been using her inhaler more frequently. She denies any recent fever, chest pain, abdominal pain. She has not been around any sick contacts. Her wbc was normal 5.0, anemia 7.3/25% and March 12 today dropped to 6.7 and 23%. No obvious bleeding. She has acute on chronic hypercapnic hypoxemic respiratory failure initially blood gas pH 7.30 pCO2 76.8, PO2 166 H CO3 37.3 on 15 L. After BiPAP 15/5 and 40% her blood gas has normalized, see below. Her CTA does not show a pulmonary embolus. She has pulmonary nodules that are worsening compared to January 16, 2024 consistent with metastatic disease and a stable bone lesion in L1. PMH: 1) non small cell lung CA RUL, s/p SBRT therapy July 2022 for RUL lung cancer, SBRT 09/2023-10/2023 for 2 RUL nodules and breast primary lesion involving T12 spine. history of RUL wedge resection, follows Dr. Michaud. 2) history of breast cancer 2006 s/p lumpectomy. 3) Rheumatoid arthritis on Taltz, sees Dr. Greer. DATA * Mar 15 CMP = Na 141, K+ 5.5, chloride 101, HCO3 37, BUN 42, creat 1.32, calcium 10.5. Renal function reflects diuresis. More metabolic alkalosis. We did not have an ABG today however it likely will show elevated pCO2 compensating for metabolic alkalosis. * Mar 11 all serology negative flu A/B, RSV COVID * AFSHIN 02/27/2018 AFSHIN 1:320 nucleolar pattern * Mar 11 = wbc 5, H/H 7.3, 25%, plt 220 Mar 12 = 6.8, H/H 6.7/ 23%, 195 K * ABGs ; she has adequate oxygenation, her initial hypercapnia has improved and no longer requires the BiPAP 15/5 which is a really high a difference between the inspiratory and expiratory pressure. I am going to try Airvo to oxygenate and it does have a small amount of PEEP. /10/231/27/251/28/35 pH [id number] pCO2 55.776.858.6 pO2 56 63344 HCO3 33.537.336.9 Sat 88.6%98%94.5% Hbg 10.3 g7.5 g7.3 g O2 3 L15 LBiPAP 40% * Chest CTA 03/11/24 = There is mild elevation of left hemidiaphragm. There are changes of wedge resection in right lung upper lobe. There is a 13 mm nodule in right upper lobe. There is a 14 mm nodule in right upper lobe. There is a 10 mm nodule in right lower lobe. There is a 5 mm nodule in left upper lobe. There is a 18 mm nodule in lingula. There is mild atelectasis bilaterally. No pleural effusion. The heart size is normal. No pericardial effusion. There is no pulmonary embolus. There is a 4.1 cm cyst in the spleen. There is a 3.7 cm cyst in left kidney. There are old fractures multiple left rib fractures. There is severe cervical and thoracic spondylosis. There is a mixed lytic and sclerotic lesion in L1 vertebral body. IMPRESSION: 1. No pulmonary embolus. 2. Pulmonary nodules with worsening from 01/16/2024, consistent with metastatic disease. 3. Bone lesion in L1, stable from 01/18/23, suspicious for metastatic disease. 4. Mild emphysema. 02/21/2020 PFT = FEV1 is 1.04 L after bronchodilator administration, TLC 71% mild restriction, DLCO 35%, DLCO/VA 79% after bronchodilator FVC 1.56 L 67% +15%, 1.79 L, 77% FEV1 0.94 L 58% +10%, 1.04 L, 64% FEV1/FVC 60% CZI00-30% 0.35 L 17% TLC 2.82 L 71% RV 1.26 L 78% ERV RV/TLC 45% DLCO 6.6, 35% DLCO/VA 2.81, 79% Review of Systems Review of Systems: All systems reviewed & are unremarkable except as noted in HPI and below Exam Narrative: GEN: Alert, oriented, not in distress. 94% on AirVo 35 L/min and 40% fiO2 NECK: Trachea is midline CHEST: Equal air entry, symmetric excursion, decreased air entry, no crackles, no wheezing CV: Regular S1S2 no m/g/r ABD : (+) bowel sounds Extremities : no clubbing, cyanosis, or edema,no rash, good capillary refill PSYCH: normal thought and speech Objective Data Vital Signs Vital Signs: Vital Signs - 24 hr 03/14/24 18:00 03/14/24 19:25 03/14/24 19:41 Temperature 36.8 C Pulse Rate 88 86 84 Respiratory Rate 19 20 Blood Pressure 155/72 H Pulse Oximetry 92 Oxygen Delivery Oxygen Flow Rate Fraction of Inspired Oxygen 03/14/24 19:45 03/14/24 19:50 03/14/24 20:00 Temperature Pulse Rate 77 78 Respiratory Rate 20 20 Blood Pressure Pulse Oximetry 95 95 Oxygen Delivery High Flow Therapy with Na High Flow Therapy with Na Oxygen Flow Rate 35 35 Fraction of Inspired Oxygen 40 40 03/14/24 20:00 03/14/24 22:00 03/14/24 23:49 Temperature 36.8 C Pulse Rate 74 71 70 Respiratory Rate 18 Blood Pressure 134/64 Pulse Oximetry 93 Oxygen Delivery Oxygen Flow Rate Fraction of Inspired Oxygen 03/15/24 00:00 03/15/24 00:00 03/15/24 01:44 Temperature Pulse Rate 71 72 Respiratory Rate 20 Blood Pressure Pulse Oximetry 93 Oxygen Delivery High Flow Therapy with Na Oxygen Flow Rate 35 Fraction of Inspired Oxygen 40 03/15/24 01:53 03/15/24 02:00 03/15/24 03:31 Temperature 36.7 C Pulse Rate 78 60 61 Respiratory Rate 20 19 Blood Pressure 137/63 Pulse Oximetry 95 Oxygen Delivery Oxygen Flow Rate Fraction of Inspired Oxygen 03/15/24 04:00 03/15/24 04:00 03/15/24 06:00 Temperature Pulse Rate 56 L 63 Respiratory Rate Blood Pressure Pulse Oximetry 94 Oxygen Delivery High Flow Therapy with Na Oxygen Flow Rate 35 Fraction of Inspired Oxygen 40 03/15/24 08:00 03/15/24 08:00 03/15/24 08:19 Temperature 36.6 C Pulse Rate 78 90 78 Respiratory Rate 20 20 Blood Pressure 137/68 Pulse Oximetry 89 L 89 L Oxygen Delivery High Flow Therapy with Na Oxygen Flow Rate 35 Fraction of Inspired Oxygen 40 03/15/24 09:10 03/15/24 09:10 03/15/24 09:23 Temperature Pulse Rate 80 80 Respiratory Rate 20 20 Blood Pressure Pulse Oximetry 93 Oxygen Delivery High Flow Therapy with Na Oxygen Flow Rate 35 Fraction of Inspired Oxygen 40 03/15/24 10:00 03/15/24 11:53 03/15/24 12:00 Temperature 36.8 C Pulse Rate 69 66 66 Respiratory Rate 20 20 Blood Pressure 140/70 Pulse Oximetry 92 92 Oxygen Delivery High Flow Therapy with Na Oxygen Flow Rate 35 Fraction of Inspired Oxygen 40 03/15/24 12:00 03/15/24 14:00 03/15/24 14:31 Temperature Pulse Rate 85 86 Respiratory Rate Blood Pressure Pulse Oximetry 92 Oxygen Delivery High Flow Therapy with Na Oxygen Flow Rate 35 Fraction of Inspired Oxygen 40 03/15/24 14:31 03/15/24 14:42 03/15/24 15:35 Temperature Pulse Rate 73 71 Respiratory Rate 20 20 Blood Pressure Pulse Oximetry Oxygen Delivery High Flow Nasal Cannula Oxygen Flow Rate 35 Fraction of Inspired Oxygen 03/15/24 15:57 03/15/24 16:00 03/15/24 16:00 Temperature 37.0 C Pulse Rate 73 73 73 Respiratory Rate 20 20 Blood Pressure 150/70 H Pulse Oximetry 93 93 Oxygen Delivery High Flow Therapy with Na Oxygen Flow Rate 35 Fraction of Inspired Oxygen 40 Intake/Output Intake/Output: Intake & Output 03/12/24 03/13/24 03/14/24 03/15/24 23:59 23:59 23:59 23:59 Intake Total 2917.9 1720 1220 480 Output Total 728 784 7693 426 Balance 2342.9 820 -80 54 Meds/Results Medications: Active Medications Generic Name Dose Route Start Last Admin Trade Name Freq PRN Reason Stop Dose Admin Acetaminophen 1,000 mg 03/12/24 09:00 03/15/24 08:26 Acetaminophen 500 Mg Tablet PO 1,000 mg Q12HR GIA Administration Albuterol/Ipratropium 3 ml 03/11/24 20:00 03/15/24 14:30 Ipratropium 0.5 Mg/Albuterol Sulfate 2.5 Mg Ampul.Neb 3 Ml INHALATION 3 ml Q6HRT GIA Administration Anastrozole 1 mg 03/12/24 09:00 03/15/24 08:27 Anastrozole (*Chemo) 1 Mg Tablet PO 1 mg DAILY GIA Administration Cholestyramine Resin 4 gm 03/12/24 01:09 Cholestyramine Light 4 Gm Powd.Pack PO TIDWM PRN IBS Duloxetine HCl 30 mg 03/12/24 09:00 03/15/24 08:27 Duloxetine Hcl 30 Mg Capsule.Dr PO 30 mg DAILY GIA Administration Ferrous Sulfate 650 mg 03/15/24 12:00 Ferrous Sulfate [address] BY MOUTH DAILY@1200 GIA Fluticasone/Umeclidinium/Vilanterol 1 puff 03/12/24 08:00 03/15/24 09:09 Fluticasone/Umeclidin/Vilanter 100-62.5-25 Mcg Ellipta INHALATION 1 puff DAILYRT GIA Administration Folic Acid 1 mg 03/12/24 09:00 03/15/24 08:27 Folic Acid 1 Mg Tablet PO 1 mg DAILY GIA Administration Levofloxacin 750 mg 03/14/24 10:50 03/14/24 12:12 Levofloxacin 750 Mg Tablet PO 03/18/24 09:01 750 mg Q48HR GIA Administration Oxybutynin Chloride 2.5 mg 03/14/24 13:00 03/15/24 08:27 Oxybutynin Chloride 2.5 Mg Tab PO 2.5 mg TID GIA Administration Prednisone 60 mg 03/14/24 08:00 03/15/24 08:26 Prednisone 20 Mg Tablet PO 03/16/24 12:00 60 mg DAILY@0800 GIA Administration Pregabalin 150 mg 03/12/24 09:00 03/15/24 08:26 Pregabalin (*Crx) 75 Mg Capsule PO 150 mg DAILY GIA Administration Quetiapine Fumarate 25 mg 03/12/24 21:00 03/14/24 20:27 Quetiapine Fumarate 25 Mg Tablet PO 25 mg QHS GIA Administration Radiology Results: ITS Impressions Chest X-Ray 03/11/24 15:57 IMPRESSION: Right apical lung mass left-sided pleural effusion, as detailed Chest CTA 03/11/24 18:01 IMPRESSION: 1. No pulmonary embolus. 2. Pulmonary nodules with worsening from 01/16/2024, consistent with metastatic disease. 3. Bone lesion in L1, stable from 01/18/23, suspicious for metastatic disease. 4. Mild emphysema. Chest Ultrasound 03/11/24 18:01 IMPRESSION: 1. No left-sided pleural effusion. Labs Labs: Laboratory Results - last 24 hr 03/15/24 04:19 WBC 10.6 H RBC 2.89 L Hgb 9.0 L Hct 30.0 L MCV 103.8 H MCH 31.1 MCHC 30.0 L RDW 14.7 H Plt Count 243 MPV 10.1 Sodium 141 Potassium 5.5 H Chloride 101 Carbon Dioxide 37 H Anion Gap 3 L BUN 42 H Creatinine 1.32 H Estim Creat Clear Calc 28 Estimated GFR 39 L Glucose 103 Calcium 10.5 H Total Bilirubin 0.2 AST 20 ALT 21 Alkaline Phosphatase 84 Total Protein 6.0 L Albumin 3.3 L
[2024-03-15] MEDS: FERROUS SULFATE 325 MG TABLET DR 650 MG BY MOUTH (17:32)
[2024-03-15] MEDS: QUEtiapine FUMARATE 25 MG TABLET PO (19:52)
[2024-03-16] VITALS (25 sets, daily range): BP systolic 121–148; BP diastolic 50–68; PULSE 51–81; RESP 14–21; TEMP 36.3–36.9; O2SAT 90–98
[2024-03-16] MEDS: IPRATROPIUM 0.5 MG/ALBUTEROL SULFATE 2.5 MG AMPUL.NEB 3 ML INHALATION ×4 (01:44→21:04)
[2024-03-16 05:01] LABS: Hematocrit 29.3 % (37.0-47.0); Hemoglobin 8.8 g/dL (12.0-15.0); Mean Corpuscular Hemoglobin 30.9 pg (26-34); Mean Corpuscular Volume 102.8 fl (80-100); Mean Platelet Volume 10.1 fl (7.4-10.4); Platelet Count Result 220 k/mm3 (150-375); Red Blood Count 2.85 M/mm3 (4.2-5.4); Red Cell Distribution Width 14.3 % (11.5-14.5); White Blood Count 8.1 K/mm3 (4.5-10.0)
[2024-03-16 05:20] LABS: Alanine Aminotransferase 20 U/L (6-35); Albumin Level 3.2 g/dL (3.5-5.1); Alkaline Phosphatase 71 U/L (38-126); Anion Gap 4 mmol/L (4-12); Aspartate Amino Transferase 19 U/L (14-36); Bilirubin,Total 0.3 mg/dL (0.2-1.3); Blood Urea Nitrogen 37 mg/dL (7-17); Calcium 10.3 mg/dL (8.4-10.2); Carbon Dioxide 36 mmol/L (22-30); Chloride 100 mmol/L (98-107); Estimated CRCL calculation 38 ml/min; Estimated Glomerular Filt Rate 55; Glucose 91 mg/dL (65-110); Potassium 5.1 mmol/L (3.4-5.0); Sodium 140 mmol/L (137-145)
[2024-03-16] MEDS: FLUTICASONE/UMECLIDIN/VILANTER 100-62.5-25 MCG ELLIPTA 1 PUFF INHALATION (06:48)
[2024-03-16] MEDS: ACETAMINOPHEN 500 MG TABLET 1000 MG PO ×2 (08:28→20:11)
[2024-03-16] MEDS: predniSONE 20 MG TABLET 60 MG PO (08:28)
[2024-03-16] MEDS: PREGABALIN (*CRX) 75 MG CAPSULE 150 MG PO (08:28)
[2024-03-16] MEDS: ANASTROZOLE (*CHEMO) 1 MG TABLET PO (08:29)
[2024-03-16] MEDS: SODIUM ZIRCONIUM CYCLOSILICATE 10 GM POWD.PACK PO (08:29)
[2024-03-16] MEDS: FOLIC ACID 1 MG TABLET PO (08:29)
[2024-03-16] MEDS: DULoxetine HCL 30 MG CAPSULE.DR PO (08:29)
[2024-03-16] MEDS: levoFLOXacin 750 MG TABLET PO (08:29)
[2024-03-16] MEDS: oxyBUTYnin CHLORIDE 2.5 MG TAB PO ×3 (08:30→17:09)
--- NOTE | 2024-03-16 08:50 | PC.NURSE ---
Spoke with Dr. Cruz regarding pt's increase urinary incontinence, and suspected metastatic disease based on CT results. New order to place Lanza catheter to prevent skin breakdown and obtain oncology consult.
[2024-03-16] MEDS: FERROUS SULFATE 325 MG TABLET DR 650 MG BY MOUTH (11:57)
--- NOTE | 2024-03-16 16:16 | PM.IMPN ---
Progress Note: A&P Assessment and Plan (1) COPD exacerbation: Code(s): J44.1 - Chronic obstructive pulmonary disease with (acute) exacerbation Status: Acute Assessment and Plan: Admit to IMU Unable to tolerate BiPAP High-flow nasal cannula (2) Respiratory failure: Qualifiers: Chronicity: acute on chronic Respiratory failure complication: unspecified whether with hypoxia or hypercapnia Qualified Code(s): J96.20 - Acute and chronic respiratory failure, unspecified whether with hypoxia or hypercapnia Code(s): J96.90 - Respiratory failure, unspecified, unspecified whether with hypoxia or hypercapnia Status: Acute Assessment and Plan: Unable to tolerate BiPAP (3) Chronic renal insufficiency, stage III (moderate): Code(s): N18.30 - Chronic kidney disease, stage 3 unspecified Status: Acute Assessment and Plan: Continue to monitor (4) Primary cancer of left lower lobe of lung: Code(s): C34.32 - Malignant neoplasm of lower lobe, left bronchus or lung Status: Acute Assessment and Plan: Follow-up in outpatient setting (5) Dependence on continuous supplemental oxygen: Code(s): Z99.81 - Dependence on supplemental oxygen Status: Acute Assessment and Plan: High-flow nasal cannula (6) Tobacco abuse: Code(s): Z72.0 - Tobacco use Status: Acute Assessment and Plan: Nicotine patch as needed (7) Pleural effusion: Code(s): J90 - Pleural effusion, not elsewhere classified Status: Acute Assessment and Plan: Chest ultrasound show no pleural effusion Plan COPD exacerbation -Current smoker -currently on HFNC at 40L -CXR shows left pleural effusion but not on chest US -Vital signs improved and stable -Ceftriaxone and Azithromycin -DC Methylprednisone 40mg IV q 6hrs -Oral Prednisone taper -negative nasal MRSA -encourage oral intake Stress Urinary Incontinence -Ditropan TID -needs sling -outpatient follow-up with the urogynecologist Subjective Date/time seen: 03/16/24 16:16 Interval history: Current requirement of oxygen is not changed, patient is currently still on high-flow nasal cannula with 35 L. patient is placed on Lanza due to stress incontinence. Emphasized the importance of outpatient urogynecologist consult. Of note patient has lung cancer. Oncology is consulted. Guarded prognosis Review of Systems Review of Systems: ROS unobtainable: Yes other (Patient is on BiPAP) Exam Narrative: Patient is sitting in bed on BiPAP Const: General: comfortable, no acute distress, well developed, alert, awake and average body habitus Nutritional Appearance: average body habitus Orientation/consciousness: patient oriented x3 Other: On BiPAP HENMT: Head: normal to inspection, normocephalic and atraumatic Ears: hearing grossly normal bilaterally Face/Nose/Sinus: normal facial exam Face and sinus: normal facial exam Eyes: General: appearance normal, both eyes and all related structures Pupils: Equal, round and reactive pupils present EOM: EOMs intact bilaterally Neck: Neck: full ROM, no lymphadenopathy and no JVD Thyroid: thyroid normal Lymphatic: no lymphadenopathy noted Resp: Effort & Inspection: normal respiratory effort and able to speak in complete sentences Auscultation: wheezes and diminished lung sounds Cardio: Jugular venous distension: no JVD Rate: regular rate Rhythm: regular rhythm Heart sounds: S1 normal heart sound present, S2 normal heart sound present and Murmur heart sound present : General: Yes deferred Skin: Rashes: no rashes Wounds: no wounds Neuro: General: patient oriented x3, CN's II-XI intact bilaterally and Unable to assess gait Cranial nerves: Yes CN's II-XII intact bilaterally and Yes Equal, round and reactive pupils present Cognition (Neuro): normal cognition Speech: normal speech Gait exam (Neuro): Unable to assess gait Motor exam (neuro): 5/5 motor strength present throughout Extrem: General: normal to inspection, full ROM, no joint enlargement and no pedal edema Objective Data Vital Signs Vital Signs: Vital Signs - 24 hr 03/15/24 18:00 03/15/24 19:07 03/15/24 19:07 Temperature Pulse Rate 77 75 Respiratory Rate 17 Blood Pressure Pulse Oximetry 93 Oxygen Delivery High Flow Therapy with Na Oxygen Flow Rate 35 Fraction of Inspired Oxygen 41 03/15/24 19:12 03/15/24 19:20 03/15/24 20:00 Temperature 98.2 F Pulse Rate 71 70 Respiratory Rate 17 18 Blood Pressure 138/70 Pulse Oximetry 93 94 Oxygen Delivery High Flow Therapy with Na Oxygen Flow Rate 35 Fraction of Inspired Oxygen 40 03/15/24 20:00 03/15/24 22:00 03/15/24 23:42 Temperature 98.4 F Pulse Rate 68 55 L 62 Respiratory Rate 18 Blood Pressure 139/65 Pulse Oximetry 95 Oxygen Delivery Oxygen Flow Rate Fraction of Inspired Oxygen 03/16/24 00:00 03/16/24 00:00 03/16/24 01:44 Temperature Pulse Rate 53 L 56 L Respiratory Rate 14 Blood Pressure Pulse Oximetry 94 Oxygen Delivery High Flow Therapy with Na Oxygen Flow Rate 35 Fraction of Inspired Oxygen 40 03/16/24 01:49 03/16/24 02:00 03/16/24 04:00 Temperature Pulse Rate 51 L 53 L Respiratory Rate 14 Blood Pressure Pulse Oximetry 93 Oxygen Delivery High Flow Therapy with Na Oxygen Flow Rate 35 Fraction of Inspired Oxygen 40 03/16/24 04:00 03/16/24 04:00 03/16/24 06:00 Temperature 97.4 F L Pulse Rate 55 L 56 L 60 Respiratory Rate 18 Blood Pressure 148/68 H Pulse Oximetry 95 Oxygen Delivery Oxygen Flow Rate Fraction of Inspired Oxygen 03/16/24 06:45 03/16/24 06:45 03/16/24 06:55 Temperature Pulse Rate 53 L 53 L 56 L Respiratory Rate 18 18 18 Blood Pressure Pulse Oximetry 91 Oxygen Delivery High Flow Therapy with Na Oxygen Flow Rate 35 Fraction of Inspired Oxygen 42 03/16/24 07:45 03/16/24 08:00 03/16/24 08:00 Temperature 98.2 F Pulse Rate 59 L 59 L 80 Respiratory Rate 20 20 Blood Pressure 142/56 H Pulse Oximetry 94 94 Oxygen Delivery High Flow Therapy with Na Oxygen Flow Rate 35 Fraction of Inspired Oxygen 40 03/16/24 09:51 03/16/24 10:00 03/16/24 12:00 Temperature 98.4 F Pulse Rate 72 72 Respiratory Rate 21 H Blood Pressure 133/67 Pulse Oximetry 94 Oxygen Delivery High Flow Nasal Cannula Oxygen Flow Rate 35 Fraction of Inspired Oxygen 03/16/24 12:00 03/16/24 12:00 03/16/24 12:45 Temperature Pulse Rate 59 L 81 74 Respiratory Rate 20 20 Blood Pressure Pulse Oximetry 94 90 Oxygen Delivery High Flow Therapy with Na High Flow Therapy with Na Oxygen Flow Rate 35 35 Fraction of Inspired Oxygen 40 42 03/16/24 12:45 03/16/24 12:55 03/16/24 14:00 Temperature Pulse Rate 74 70 81 Respiratory Rate 20 18 Blood Pressure Pulse Oximetry Oxygen Delivery Oxygen Flow Rate Fraction of Inspired Oxygen Intake/Output Intake/Output: Intake & Output 03/13/24 03/14/24 03/15/24 03/16/24 23:59 23:59 23:59 23:59 Intake Total 1720 1220 1220 480 Output Total 900 1300 826 100 Balance 820 -80 394 380 Meds/Results Medications: Active Medications Generic Name Dose Route Start Last Admin Trade Name Freq PRN Reason Stop Dose Admin Acetaminophen 1,000 mg 03/12/24 09:00 03/16/24 08:28 Acetaminophen 500 Mg Tablet PO 1,000 mg Q12HR GIA Administration Albuterol/Ipratropium 3 ml 03/11/24 20:00 03/16/24 12:45 Ipratropium 0.5 Mg/Albuterol Sulfate 2.5 Mg Ampul.Neb 3 Ml INHALATION 3 ml Q6HRT GIA Administration Anastrozole 1 mg 03/12/24 09:00 03/16/24 08:29 Anastrozole (*Chemo) 1 Mg Tablet PO 1 mg DAILY GIA Administration Cholestyramine Resin 4 gm 03/12/24 01:09 Cholestyramine Light 4 Gm Powd.Pack PO TIDWM PRN IBS Duloxetine HCl 30 mg 03/12/24 09:00 03/16/24 08:29 Duloxetine Hcl 30 Mg Capsule.Dr PO 30 mg DAILY GIA Administration Ferrous Sulfate 650 mg 03/15/24 12:00 03/16/24 11:57 Ferrous Sulfate [address] BY MOUTH 650 mg DAILY@1200 GIA Administration Fluticasone/Umeclidinium/Vilanterol 1 puff 03/12/24 08:00 03/16/24 06:48 Fluticasone/Umeclidin/Vilanter 100-62.5-25 Mcg Ellipta INHALATION 1 puff DAILYRT GIA Administration Folic Acid 1 mg 03/12/24 09:00 03/16/24 08:29 Folic Acid 1 Mg Tablet PO 1 mg DAILY GIA Administration Levofloxacin 750 mg 03/14/24 10:50 03/16/24 08:29 Levofloxacin 750 Mg Tablet PO 03/18/24 09:01 750 mg Q48HR GIA Administration Oxybutynin Chloride 2.5 mg 03/14/24 13:00 03/16/24 11:57 Oxybutynin Chloride 2.5 Mg Tab PO 2.5 mg TID GIA Administration Pregabalin 150 mg 03/12/24 09:00 03/16/24 08:28 Pregabalin (*Crx) 75 Mg Capsule PO 150 mg DAILY GIA Administration Quetiapine Fumarate 25 mg 03/12/24 21:00 03/15/24 19:52 Quetiapine Fumarate 25 Mg Tablet PO 25 mg QHS GIA Administration Radiology Results: ITS Impressions Chest X-Ray 03/11/24 15:57 IMPRESSION: Right apical lung mass left-sided pleural effusion, as detailed Chest CTA 03/11/24 18:01 IMPRESSION: 1. No pulmonary embolus. 2. Pulmonary nodules with worsening from 01/16/2024, consistent with metastatic disease. 3. Bone lesion in L1, stable from 01/18/23, suspicious for metastatic disease. 4. Mild emphysema. Chest Ultrasound 03/11/24 18:01 IMPRESSION: 1. No left-sided pleural effusion. Labs Labs: Laboratory Results - last 24 hr 03/16/24 04:21 WBC 8.1 RBC 2.85 L Hgb 8.8 L Hct 29.3 L MCV 102.8 H MCH 30.9 MCHC 30.0 L RDW 14.3 Plt Count 220 MPV 10.1 Sodium 140 Potassium 5.1 H Chloride 100 Carbon Dioxide 36 H Anion Gap 4 BUN 37 H Creatinine 0.99 Estim Creat Clear Calc 38 Estimated GFR 55 L Glucose 91 Calcium 10.3 H Total Bilirubin 0.3 AST 19 ALT 20 Alkaline Phosphatase 71 Total Protein 6.0 L Albumin 3.2 L Hospitalist MIPS Advance Care Plan I have confirmed that the patient's Advanced Care Plan is present, code status is documented, or surrogate decision maker is listed in patient medical record.: Yes Medication Reconciliation I have utilized all available resources to obtain, update and review the patients current medications (includes all prescriptions, OTC, herbals, cannabis, and nutritional supplements).: Yes
--- NOTE | 2024-03-16 16:44 | P.PNPL_ITS ---
Progress Note: A&P Assessment and Plan (1) Acute on chronic respiratory failure with hypoxia and hypercapnia: Code(s): J96.21 - Acute and chronic respiratory failure with hypoxia; J96.22 - Acute and chronic respiratory failure with hypercapnia Status: Acute Assessment and Plan: She has chronic CO2 retention, prior blood gases show this, she is on oxygen at home, on admission was hypoxemic, required increase oxygen, CO2 was elevated, improved on BiPAP. She has high serum bicarbonate compensating. (2) COPD (chronic obstructive pulmonary disease): Qualifiers: COPD type: unspecified COPD Qualified Code(s): J44.9 - Chronic obstructive pulmonary disease, unspecified Code(s): J44.9 - Chronic obstructive pulmonary disease, unspecified Status: Acute Assessment and Plan: Has long history of COPD, at home takes Breztri and prn albuterol. She has mild emphysema radiographically. * 02/21/2020 PFT = FEV1 is 1.04 L after bronchodilator administration, TLC 71% mild restriction, DLCO 35%, DLCO/VA 79% Continue bronchodilator therapy and p.r.n. bronchodilators. (3) Lung cancer: Code(s): C34.90 - Malignant neoplasm of unspecified part of unspecified bronchus or lung Status: Acute Assessment and Plan: She has increasing size of right upper lobe nodules, increased in size since January 20, 2024. The 1.3 cm nodule is now 1.4 cm, the 1 cm is 1.3 cm, and she has other smaller nodules. She had a partial right upper lobectomy. She has no additional plans for radiation at this point. She will need oncology evaluation for these developments, when she is over this episode and admission. Other nodules include RLL 3 mm, TRISHA 3 mm. Peripheral radiation fibrosis in lingula. No pleural effusion. (4) Dependence on continuous supplemental oxygen: Code(s): Z99.81 - Dependence on supplemental oxygen Status: Acute Assessment and Plan: At home on 3 L at rest, 5 L with exertion, here did require more oxygenation initially, now can be weaned lower. (5) Tobacco abuse: Code(s): Z72.0 - Tobacco use Status: Acute Assessment and Plan: Smoked until this admission; lives alone; has smoked 60 years, now half pack per day. 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 Increased activity. She can use BiPAP 12/7 when needed, alternate with high flow nasal cannula. Continues to improve. Less short of breath, cough is less productive. Breathing more easily. Oral steroids. Improved, she thinks she is getting closer to baseline. She was smoking up until admission, and this contributed to deterioration. She has increasing size of RUL nodules from less than 2 months ago. Will need to have oncology/ Rad onc manage as an outpatient. Subjective Date/time seen: 03/16/24 16:44 Interval history: 03/16/24; No major events overnight. She was up in a chair today, now in bed She is on AirVo, needs to transition to 15 high flow cannula and wean quickly. On 35 L min and 40%, saturation is 95%. She fells close to her baseline, we are talking about discharge. 03/15/24; Remains improved compared to admission, still on Airvo as this is more comfortable. She tells me that she used BiPAP last night, lower settings, 12/7, for several hours if she is remembering correctly. Sat is 93-94% on 35 L/min and 40%. Airvo is easier to wean than nasal cannula O2. Even though the flow and FiO2 are high, it can be dropped quickly in the next day to try to wean and get her ready for discharge. K+ is high today, 5.5. See labs below, DATA. BUN and creat elevated, HCO3 37. 03/14/24; Feels better, less short of breath. She likes the Airvo, however the O2 level is staying at 40-45% and 35 L/min. Not able to wean. She wore BiPAP for a few hours today. 03/12/2024, new consult; May Deatherage is a 78 year old female admitted with increased shortness of breath. She was last seen in our clinic 01/09/2024; has COPD, tobacco dependence, chronic hypoxic respiratory failure on O2; 3L with rest, 5 L with exertion; non-small cell lung CA now with 2 synchronous RUL lung cancers and an oligorecurrent from breast primary lesion involving T12 spine. She had a wedge resection in the RUL. She had a chest CT 03/04/24 showing RUL nodule 14 mm. She tells me that she had increased cough with wheezing, fatigue for 2-3 days prior to admission; she has been using her inhaler more frequently. She denies any recent fever, chest pain, abdominal pain. She has not been around any sick contacts. Her wbc was normal 5.0, anemia 7.3/25% and March 12 today dropped to 6.7 and 23%. No obvious bleeding. She has acute on chronic hypercapnic hypoxemic respiratory failure initially blood gas pH 7.30 pCO2 76.8, PO2 166 H CO3 37.3 on 15 L. After BiPAP 15/5 and 40% her blood gas has normalized, see below. Her CTA does not show a pulmonary embolus. She has pulmonary nodules that are worsening compared to January 16, 2024 consistent with metastatic disease and a stable bone lesion in L1. PMH: 1) non small cell lung CA RUL, s/p SBRT therapy July 2022 for RUL lung cancer, SBRT 09/2023-10/2023 for 2 RUL nodules and breast primary lesion involving T12 spine. history of RUL wedge resection, follows Dr. Michaud. 2) history of breast cancer 2006 s/p lumpectomy. 3) Rheumatoid arthritis on Taltz, sees Dr. Greer. DATA * Mar 15 CMP = Na 141, K+ 5.5, chloride 101, HCO3 37, BUN 42, creat 1.32, calcium 10.5. Renal function reflects diuresis. More metabolic alkalosis. We did not have an ABG today however it likely will show elevated pCO2 compensating for metabolic alkalosis. * Mar 11 all serology negative flu A/B, RSV COVID * AFSHIN 02/27/2018 AFSHIN 1:320 nucleolar pattern * Mar 11 = wbc 5, H/H 7.3, 25%, plt 220 Mar 12 = 6.8, H/H 6.7/ 23%, 195 K * ABGs ; she has adequate oxygenation, her initial hypercapnia has improved and no longer requires the BiPAP 15/5 which is a really high a difference between the inspiratory and expiratory pressure. I am going to try Airvo to oxygenate and it does have a small amount of PEEP. ///27/251/28/35 pH [id number] pCO2 [id number] pO2 56 37709 HCO3 [id number] Sat 88.6%98%94.5% Hbg 10.3 g7.5 g7.3 g O2 3 L15 LBiPAP 40% * Chest CTA 03/11/24 = There is mild elevation of left hemidiaphragm. There are changes of wedge resection in right lung upper lobe. There is a 13 mm nodule in right upper lobe. There is a 14 mm nodule in right upper lobe. There is a 10 mm nodule in right lower lobe. There is a 5 mm nodule in left upper lobe. There is a 18 mm nodule in lingula. There is mild atelectasis bilaterally. No pleural effusion. The heart size is normal. No pericardial effusion. There is no pulmonary embolus. There is a 4.1 cm cyst in the spleen. There is a 3.7 cm cyst in left kidney. There are old fractures multiple left rib fractures. There is severe cervical and thoracic spondylosis. There is a mixed lytic and sclerotic lesion in L1 vertebral body. IMPRESSION: 1. No pulmonary embolus. 2. Pulmonary nodules with worsening from 01/16/2024, consistent with metastatic disease. 3. Bone lesion in L1, stable from 01/18/23, suspicious for metastatic disease. 4. Mild emphysema. 02/21/2020 PFT = FEV1 is 1.04 L after bronchodilator administration, TLC 71% mild restriction, DLCO 35%, DLCO/VA 79% after bronchodilator FVC 1.56 L 67% +15%, 1.79 L, 77% FEV1 0.94 L 58% +10%, 1.04 L, 64% FEV1/FVC 60% CCB17-42% 0.35 L 17% TLC 2.82 L 71% RV 1.26 L 78% ERV RV/TLC 45% DLCO 6.6, 35% DLCO/VA 2.81, 79% Review of Systems Review of Systems: All systems reviewed & are unremarkable except as noted in HPI and below Exam Narrative: GEN: Alert, oriented, not in distress. 95% on AirVo 35 L/min and 40% FiO2 NECK: Trachea is midline CHEST: Equal air entry, symmetric excursion, decreased air entry, no crackles, no wheezing CV: Regular S1S2 no m/g/r ABD : (+) bowel sounds Extremities : no clubbing, cyanosis, or edema,no rash, good capillary refill PSYCH: normal thought and speech Objective Data Vital Signs Vital Signs: Vital Signs - 24 hr 03/15/24 18:00 03/15/24 19:07 03/15/24 19:07 Temperature Pulse Rate 77 75 Respiratory Rate 17 Blood Pressure Pulse Oximetry 93 Oxygen Delivery High Flow Therapy with Na Oxygen Flow Rate 35 Fraction of Inspired Oxygen 41 03/15/24 19:12 03/15/24 19:20 03/15/24 20:00 Temperature 36.8 C Pulse Rate 71 70 Respiratory Rate 17 18 Blood Pressure 138/70 Pulse Oximetry 93 94 Oxygen Delivery High Flow Therapy with Na Oxygen Flow Rate 35 Fraction of Inspired Oxygen 40 03/15/24 20:00 03/15/24 22:00 03/15/24 23:42 Temperature 36.9 C Pulse Rate 68 55 L 62 Respiratory Rate 18 Blood Pressure 139/65 Pulse Oximetry 95 Oxygen Delivery Oxygen Flow Rate Fraction of Inspired Oxygen 03/16/24 00:00 03/16/24 00:00 03/16/24 01:44 Temperature Pulse Rate 53 L 56 L Respiratory Rate 14 Blood Pressure Pulse Oximetry 94 Oxygen Delivery High Flow Therapy with Na Oxygen Flow Rate 35 Fraction of Inspired Oxygen 40 03/16/24 01:49 03/16/24 02:00 03/16/24 04:00 Temperature Pulse Rate 51 L 53 L Respiratory Rate 14 Blood Pressure Pulse Oximetry 93 Oxygen Delivery High Flow Therapy with Na Oxygen Flow Rate 35 Fraction of Inspired Oxygen 40 03/16/24 04:00 03/16/24 04:00 03/16/24 06:00 Temperature 36.3 C L Pulse Rate 55 L 56 L 60 Respiratory Rate 18 Blood Pressure 148/68 H Pulse Oximetry 95 Oxygen Delivery Oxygen Flow Rate Fraction of Inspired Oxygen 03/16/24 06:45 03/16/24 06:45 03/16/24 06:55 Temperature Pulse Rate 53 L 53 L 56 L Respiratory Rate 18 18 18 Blood Pressure Pulse Oximetry 91 Oxygen Delivery High Flow Therapy with Na Oxygen Flow Rate 35 Fraction of Inspired Oxygen 42 03/16/24 07:45 03/16/24 08:00 03/16/24 08:00 Temperature 36.8 C Pulse Rate 59 L 59 L 80 Respiratory Rate 20 20 Blood Pressure 142/56 H Pulse Oximetry 94 94 Oxygen Delivery High Flow Therapy with Na Oxygen Flow Rate 35 Fraction of Inspired Oxygen 40 03/16/24 09:51 03/16/24 10:00 03/16/24 12:00 Temperature 36.9 C Pulse Rate 72 72 Respiratory Rate 21 H Blood Pressure 133/67 Pulse Oximetry 94 Oxygen Delivery High Flow Nasal Cannula Oxygen Flow Rate 35 Fraction of Inspired Oxygen 03/16/24 12:00 03/16/24 12:00 03/16/24 12:45 Temperature Pulse Rate 59 L 81 74 Respiratory Rate 20 20 Blood Pressure Pulse Oximetry 94 90 Oxygen Delivery High Flow Therapy with Na High Flow Therapy with Na Oxygen Flow Rate 35 35 Fraction of Inspired Oxygen 40 42 03/16/24 12:45 03/16/24 12:55 03/16/24 14:00 Temperature Pulse Rate 74 70 81 Respiratory Rate 20 18 Blood Pressure Pulse Oximetry Oxygen Delivery Oxygen Flow Rate Fraction of Inspired Oxygen 03/16/24 16:00 Temperature 36.9 C Pulse Rate 72 Respiratory Rate 20 Blood Pressure 121/50 L Pulse Oximetry 91 Oxygen Delivery Oxygen Flow Rate Fraction of Inspired Oxygen Intake/Output Intake/Output: Intake & Output 03/13/24 03/14/24 03/15/24 03/16/24 23:59 23:59 23:59 23:59 Intake Total 1720 1220 1220 480 Output Total 900 1300 826 100 Balance 820 -80 394 380 Meds/Results Medications: Active Medications Generic Name Dose Route Start Last Admin Trade Name Freq PRN Reason Stop Dose Admin Acetaminophen 1,000 mg 03/12/24 09:00 03/16/24 08:28 Acetaminophen 500 Mg Tablet PO 1,000 mg Q12HR GIA Administration Albuterol/Ipratropium 3 ml 03/11/24 20:00 03/16/24 12:45 Ipratropium 0.5 Mg/Albuterol Sulfate 2.5 Mg Ampul.Neb 3 Ml INHALATION 3 ml Q6HRT GIA Administration Anastrozole 1 mg 03/12/24 09:00 03/16/24 08:29 Anastrozole (*Chemo) 1 Mg Tablet PO 1 mg DAILY GIA Administration Cholestyramine Resin 4 gm 03/12/24 01:09 Cholestyramine Light 4 Gm Powd.Pack PO TIDWM PRN IBS Duloxetine HCl 30 mg 03/12/24 09:00 03/16/24 08:29 Duloxetine Hcl 30 Mg Capsule.Dr PO 30 mg DAILY GIA Administration Ferrous Sulfate 650 mg 03/15/24 12:00 03/16/24 11:57 Ferrous Sulfate [address] BY MOUTH 650 mg DAILY@1200 GIA Administration Fluticasone/Umeclidinium/Vilanterol 1 puff 03/12/24 08:00 03/16/24 06:48 Fluticasone/Umeclidin/Vilanter 100-62.5-25 Mcg Ellipta INHALATION 1 puff DAILYRT GIA Administration Folic Acid 1 mg 03/12/24 09:00 03/16/24 08:29 Folic Acid 1 Mg Tablet PO 1 mg DAILY GIA Administration Levofloxacin 750 mg 03/14/24 10:50 03/16/24 08:29 Levofloxacin 750 Mg Tablet PO 03/18/24 09:01 750 mg Q48HR GIA Administration Oxybutynin Chloride 2.5 mg 03/14/24 13:00 03/16/24 11:57 Oxybutynin Chloride 2.5 Mg Tab PO 2.5 mg TID GIA Administration Prednisone 40 mg/ Prednisone 50 mg 03/17/24 08:00 10 mg PO DAILY@0800 [facility] Pregabalin 150 mg 03/12/24 09:00 03/16/24 08:28 Pregabalin (*Crx) 75 Mg Capsule PO 150 mg DAILY GIA Administration Quetiapine Fumarate 25 mg 03/12/24 21:00 03/15/24 19:52 Quetiapine Fumarate 25 Mg Tablet PO 25 mg QHS GIA Administration Radiology Results: ITS Impressions Chest X-Ray 03/11/24 15:57 IMPRESSION: Right apical lung mass left-sided pleural effusion, as detailed Chest CTA 03/11/24 18:01 IMPRESSION: 1. No pulmonary embolus. 2. Pulmonary nodules with worsening from 01/16/2024, consistent with metastatic disease. 3. Bone lesion in L1, stable from 01/18/23, suspicious for metastatic disease. 4. Mild emphysema. Chest Ultrasound 03/11/24 18:01 IMPRESSION: 1. No left-sided pleural effusion. Labs Labs: Laboratory Results - last 24 hr 03/16/24 04:21 WBC 8.1 RBC 2.85 L Hgb 8.8 L Hct 29.3 L MCV 102.8 H MCH 30.9 MCHC 30.0 L RDW 14.3 Plt Count 220 MPV 10.1 Sodium 140 Potassium 5.1 H Chloride 100 Carbon Dioxide 36 H Anion Gap 4 BUN 37 H Creatinine 0.99 Estim Creat Clear Calc 38 Estimated GFR 55 L Glucose 91 Calcium 10.3 H Total Bilirubin 0.3 AST 19 ALT 20 Alkaline Phosphatase 71 Total Protein 6.0 L Albumin 3.2 L
[2024-03-16] MEDS: QUEtiapine FUMARATE 25 MG TABLET PO (20:11)
[2024-03-17] VITALS (28 sets, daily range): BP systolic 108–132; BP diastolic 47–76; PULSE 58–91; RESP 14–21; TEMP 36.3–37; O2SAT 80–100
[2024-03-17] MEDS: IPRATROPIUM 0.5 MG/ALBUTEROL SULFATE 2.5 MG AMPUL.NEB 3 ML INHALATION ×4 (02:15→20:41)
[2024-03-17 05:15] LABS: Hematocrit 30.2 % (37.0-47.0); Hemoglobin 9.2 g/dL (12.0-15.0); Mean Corpuscular HGB Conc 30.5 g/dl (32-36); Mean Corpuscular Hemoglobin 31.3 pg (26-34); Mean Corpuscular Volume 102.7 fl (80-100); Platelet Count Result 208 k/mm3 (150-375); Red Blood Count 2.94 M/mm3 (4.2-5.4); White Blood Count 7.8 K/mm3 (4.5-10.0)
[2024-03-17 05:28] LABS: Alanine Aminotransferase 29 U/L (6-35); Albumin Level 3.1 g/dL (3.5-5.1); Alkaline Phosphatase 85 U/L (38-126); Anion Gap 3 mmol/L (4-12); Aspartate Amino Transferase 22 U/L (14-36); Bilirubin,Total 0.3 mg/dL (0.2-1.3); Blood Urea Nitrogen 30 mg/dL (7-17); Calcium 9.9 mg/dL (8.4-10.2); Carbon Dioxide 36 mmol/L (22-30); Chloride 100 mmol/L (98-107); Estimated CRCL calculation 35 ml/min; Estimated Glomerular Filt Rate 48; Glucose 93 mg/dL (65-110); Potassium 4.4 mmol/L (3.4-5.0); Sodium 139 mmol/L (137-145)
[2024-03-17] MEDS: FLUTICASONE/UMECLIDIN/VILANTER 100-62.5-25 MCG ELLIPTA 1 PUFF INHALATION (07:58)
[2024-03-17] MEDS: ACETAMINOPHEN 500 MG TABLET 1000 MG PO ×2 (08:20→21:33)
[2024-03-17] MEDS: predniSONE 40 MG, predniSONE 10 MG 50 MG PO (08:21)
[2024-03-17] MEDS: PREGABALIN (*CRX) 75 MG CAPSULE 150 MG PO (08:22)
[2024-03-17] MEDS: oxyBUTYnin CHLORIDE 2.5 MG TAB PO ×3 (08:22→17:11)
[2024-03-17] MEDS: DULoxetine HCL 30 MG CAPSULE.DR PO (08:22)
[2024-03-17] MEDS: FOLIC ACID 1 MG TABLET PO (08:22)
[2024-03-17] MEDS: ANASTROZOLE (*CHEMO) 1 MG TABLET PO (08:22)
[2024-03-17] MEDS: FERROUS SULFATE 325 MG TABLET DR 650 MG BY MOUTH (12:32)
--- NOTE | 2024-03-17 14:39 | PM.IMPN ---
Progress Note: A&P Assessment and Plan (1) COPD exacerbation: Code(s): J44.1 - Chronic obstructive pulmonary disease with (acute) exacerbation Status: Acute Assessment and Plan: Admit to IMU Unable to tolerate BiPAP High-flow nasal cannula (2) Respiratory failure: Qualifiers: Chronicity: acute on chronic Respiratory failure complication: unspecified whether with hypoxia or hypercapnia Qualified Code(s): J96.20 - Acute and chronic respiratory failure, unspecified whether with hypoxia or hypercapnia Code(s): J96.90 - Respiratory failure, unspecified, unspecified whether with hypoxia or hypercapnia Status: Acute Assessment and Plan: Unable to tolerate BiPAP (3) Chronic renal insufficiency, stage III (moderate): Code(s): N18.30 - Chronic kidney disease, stage 3 unspecified Status: Acute Assessment and Plan: Continue to monitor (4) Primary cancer of left lower lobe of lung: Code(s): C34.32 - Malignant neoplasm of lower lobe, left bronchus or lung Status: Acute Assessment and Plan: Follow-up in outpatient setting (5) Dependence on continuous supplemental oxygen: Code(s): Z99.81 - Dependence on supplemental oxygen Status: Acute Assessment and Plan: High-flow nasal cannula (6) Tobacco abuse: Code(s): Z72.0 - Tobacco use Status: Acute Assessment and Plan: Nicotine patch as needed (7) Pleural effusion: Code(s): J90 - Pleural effusion, not elsewhere classified Status: Acute Assessment and Plan: Chest ultrasound show no pleural effusion Plan COPD exacerbation -Current smoker -currently on HFNC at 40L -CXR shows left pleural effusion but not on chest US -Vital signs improved and stable -Ceftriaxone and Azithromycin -DC Methylprednisone 40mg IV q 6hrs -Oral Prednisone taper -negative nasal MRSA -encourage oral intake Stress Urinary Incontinence -Ditropan TID -needs sling -outpatient follow-up with the urogynecologist Subjective Date/time seen: 03/17/24 14:39 Interval history: Per pulmonology recommendation changed from AirVo 35L/min and 40% to high flow 5-15 L. BiPAP PRN.She doesn't want to wear CPAP at night and reports its very uncomfortable. Review of Systems Review of Systems: ROS unobtainable: Yes other (Patient is on BiPAP) Exam Narrative: Patient is sitting in bed on BiPAP Const: General: comfortable, no acute distress, well developed, alert, awake and average body habitus Nutritional Appearance: average body habitus Orientation/consciousness: patient oriented x3 Other: On BiPAP HENMT: Head: normal to inspection, normocephalic and atraumatic Ears: hearing grossly normal bilaterally Face/Nose/Sinus: normal facial exam Face and sinus: normal facial exam Eyes: General: appearance normal, both eyes and all related structures Pupils: Equal, round and reactive pupils present EOM: EOMs intact bilaterally Neck: Neck: full ROM, no lymphadenopathy and no JVD Thyroid: thyroid normal Lymphatic: no lymphadenopathy noted Resp: Effort & Inspection: normal respiratory effort and able to speak in complete sentences Auscultation: wheezes and diminished lung sounds Cardio: Jugular venous distension: no JVD Rate: regular rate Rhythm: regular rhythm Heart sounds: S1 normal heart sound present, S2 normal heart sound present and Murmur heart sound present : General: Yes deferred Skin: Rashes: no rashes Wounds: no wounds Neuro: General: patient oriented x3, CN's II-XI intact bilaterally and Unable to assess gait Cranial nerves: Yes CN's II-XII intact bilaterally and Yes Equal, round and reactive pupils present Cognition (Neuro): normal cognition Speech: normal speech Gait exam (Neuro): Unable to assess gait Motor exam (neuro): 5/5 motor strength present throughout Extrem: General: normal to inspection, full ROM, no joint enlargement and no pedal edema Objective Data Vital Signs Vital Signs: Vital Signs - 24 hr 03/16/24 16:00 03/16/24 16:00 03/16/24 16:00 Temperature 98.5 F Pulse Rate 72 72 64 Respiratory Rate 20 20 Blood Pressure 121/50 L Pulse Oximetry 91 91 Oxygen Delivery High Flow Therapy with Na Oxygen Flow Rate 35 Fraction of Inspired Oxygen 40 03/16/24 17:18 03/16/24 17:25 03/16/24 18:00 Temperature Pulse Rate 78 76 74 Respiratory Rate Blood Pressure Pulse Oximetry 98 97 Oxygen Delivery High Flow Nasal Cannula High Flow Nasal Cannula Oxygen Flow Rate 15 10 Fraction of Inspired Oxygen 03/16/24 18:15 03/16/24 20:00 03/16/24 20:00 Temperature 98.3 F Pulse Rate 74 71 66 Respiratory Rate 20 18 Blood Pressure 123/68 Pulse Oximetry 98 94 95 Oxygen Delivery High Flow Nasal Cannula High Flow Nasal Cannula Oxygen Flow Rate 7 7 Fraction of Inspired Oxygen 03/16/24 20:00 03/16/24 21:05 03/16/24 21:12 Temperature Pulse Rate 66 65 65 Respiratory Rate 20 Blood Pressure Pulse Oximetry 97 Oxygen Delivery High Flow Nasal Cannula Oxygen Flow Rate 7 Fraction of Inspired Oxygen 03/16/24 21:15 03/16/24 22:00 03/17/24 00:00 Temperature 98.0 F Pulse Rate 71 69 66 Respiratory Rate 20 18 Blood Pressure 132/76 Pulse Oximetry 98 Oxygen Delivery Oxygen Flow Rate Fraction of Inspired Oxygen 03/17/24 00:00 03/17/24 00:00 03/17/24 02:00 Temperature Pulse Rate 65 65 61 Respiratory Rate Blood Pressure Pulse Oximetry 100 Oxygen Delivery High Flow Nasal Cannula Oxygen Flow Rate 7 Fraction of Inspired Oxygen 03/17/24 02:15 03/17/24 02:15 03/17/24 02:24 Temperature Pulse Rate 58 L 58 L 60 Respiratory Rate 14 14 15 Blood Pressure Pulse Oximetry 96 Oxygen Delivery BiPAP Oxygen Flow Rate Fraction of Inspired Oxygen 03/17/24 04:00 03/17/24 04:00 03/17/24 04:00 Temperature 97.9 F Pulse Rate 69 66 66 Respiratory Rate 18 Blood Pressure 131/58 L Pulse Oximetry 93 95 Oxygen Delivery BiPAP Oxygen Flow Rate Fraction of Inspired Oxygen 35 03/17/24 06:00 03/17/24 07:39 03/17/24 07:39 Temperature Pulse Rate 67 69 Respiratory Rate 16 Blood Pressure Pulse Oximetry 92 Oxygen Delivery High Flow Nasal Cannula Oxygen Flow Rate 5 Fraction of Inspired Oxygen 40 03/17/24 07:51 03/17/24 07:58 03/17/24 08:00 Temperature 97.4 F L Pulse Rate 69 68 81 Respiratory Rate 16 16 Blood Pressure 122/59 L Pulse Oximetry 92 Oxygen Delivery Oxygen Flow Rate Fraction of Inspired Oxygen 03/17/24 08:00 03/17/24 10:00 03/17/24 12:00 Temperature 98.4 F Pulse Rate 62 85 77 Respiratory Rate 16 21 H Blood Pressure 127/60 Pulse Oximetry 92 97 Oxygen Delivery High Flow Nasal Cannula Oxygen Flow Rate 7 Fraction of Inspired Oxygen 03/17/24 12:00 03/17/24 12:00 03/17/24 13:04 Temperature Pulse Rate 91 77 Respiratory Rate 21 H Blood Pressure Pulse Oximetry 97 80 L Oxygen Delivery High Flow Nasal Cannula High Flow Nasal Cannula Oxygen Flow Rate 7 5 Fraction of Inspired Oxygen 40 03/17/24 13:07 03/17/24 13:10 03/17/24 13:10 Temperature Pulse Rate 81 Respiratory Rate 16 Blood Pressure Pulse Oximetry 85 L 90 Oxygen Delivery High Flow Nasal Cannula High Flow Nasal Cannula Oxygen Flow Rate 6 7 Fraction of Inspired Oxygen 44 03/17/24 13:19 Temperature Pulse Rate 78 Respiratory Rate 16 Blood Pressure Pulse Oximetry Oxygen Delivery Oxygen Flow Rate Fraction of Inspired Oxygen Intake/Output Intake/Output: Intake & Output 03/14/24 03/15/24 03/16/24 03/17/24 23:59 23:59 23:59 23:59 Intake Total 1220 1220 1420 930 Output Total 1300 826 750 750 Balance -80 394 670 180 Meds/Results Medications: Active Medications Generic Name Dose Route Start Last Admin Trade Name Freq PRN Reason Stop Dose Admin Acetaminophen 1,000 mg 03/12/24 09:00 03/17/24 08:20 Acetaminophen 500 Mg Tablet PO 1,000 mg Q12HR GIA Administration Albuterol/Ipratropium 3 ml 03/11/24 20:00 03/17/24 13:10 Ipratropium 0.5 Mg/Albuterol Sulfate 2.5 Mg Ampul.Neb 3 Ml INHALATION 3 ml Q6HRT GIA Administration Anastrozole 1 mg 03/12/24 09:00 03/17/24 08:22 Anastrozole (*Chemo) 1 Mg Tablet PO 1 mg DAILY GIA Administration Cholestyramine Resin 4 gm 03/12/24 01:09 Cholestyramine Light 4 Gm Powd.Pack PO TIDWM PRN IBS Duloxetine HCl 30 mg 03/12/24 09:00 03/17/24 08:22 Duloxetine Hcl 30 Mg Capsule.Dr PO 30 mg DAILY GIA Administration Ferrous Sulfate 650 mg 03/15/24 12:00 03/17/24 12:32 Ferrous Sulfate [address] BY MOUTH 650 mg DAILY@1200 GIA Administration Fluticasone/Umeclidinium/Vilanterol 1 puff 03/12/24 08:00 03/17/24 07:58 Fluticasone/Umeclidin/Vilanter 100-62.5-25 Mcg Ellipta INHALATION 1 puff DAILYRT GIA Administration Folic Acid 1 mg 03/12/24 09:00 03/17/24 08:22 Folic Acid 1 Mg Tablet PO 1 mg DAILY GIA Administration Levofloxacin 750 mg 03/14/24 10:50 03/16/24 08:29 Levofloxacin 750 Mg Tablet PO 03/18/24 09:01 750 mg Q48HR GIA Administration Oxybutynin Chloride 2.5 mg 03/14/24 13:00 03/17/24 12:32 Oxybutynin Chloride 2.5 Mg Tab PO 2.5 mg TID GIA Administration Prednisone 40 mg/ Prednisone 50 mg 03/17/24 08:00 03/17/24 08:21 10 mg PO 03/19/24 23:59 50 mg DAILY@0800 GIA Administration Pregabalin 150 mg 03/12/24 09:00 03/17/24 08:22 Pregabalin (*Crx) 75 Mg Capsule PO 150 mg DAILY GIA Administration Quetiapine Fumarate 25 mg 03/12/24 21:00 03/16/24 20:11 Quetiapine Fumarate 25 Mg Tablet PO 25 mg QHS GIA Administration Radiology Results: ITS Impressions Chest X-Ray 03/11/24 15:57 IMPRESSION: Right apical lung mass left-sided pleural effusion, as detailed Chest CTA 03/11/24 18:01 IMPRESSION: 1. No pulmonary embolus. 2. Pulmonary nodules with worsening from 01/16/2024, consistent with metastatic disease. 3. Bone lesion in L1, stable from 01/18/23, suspicious for metastatic disease. 4. Mild emphysema. Chest Ultrasound 03/11/24 18:01 IMPRESSION: 1. No left-sided pleural effusion. Labs Labs: Laboratory Results - last 24 hr 03/17/24 04:18 WBC 7.8 RBC 2.94 L Hgb 9.2 L Hct 30.2 L MCV 102.7 H MCH 31.3 MCHC 30.5 L RDW 14.0 Plt Count 208 MPV 10.0 Sodium 139 Potassium 4.4 Chloride 100 Carbon Dioxide 36 H Anion Gap 3 L BUN 30 H Creatinine 1.10 H Estim Creat Clear Calc 35 Estimated GFR 48 L Glucose 93 Calcium 9.9 Total Bilirubin 0.3 AST 22 ALT 29 Alkaline Phosphatase 85 Total Protein 6.0 L Albumin 3.1 L Hospitalist MIPS Advance Care Plan I have confirmed that the patient's Advanced Care Plan is present, code status is documented, or surrogate decision maker is listed in patient medical record.: Yes Medication Reconciliation I have utilized all available resources to obtain, update and review the patients current medications (includes all prescriptions, OTC, herbals, cannabis, and nutritional supplements).: Yes
--- NOTE | 2024-03-17 20:14 | PM.PNPUL ---
Progress Note: A&P Assessment and Plan (1) Acute on chronic respiratory failure with hypoxia and hypercapnia: Code(s): J96.21 - Acute and chronic respiratory failure with hypoxia; J96.22 - Acute and chronic respiratory failure with hypercapnia Status: Acute Assessment and Plan: She has chronic CO2 retention, prior blood gases show this, she is on oxygen at home, on admission was hypoxemic, required increase oxygen, CO2 was elevated, improved on BiPAP. She has high serum bicarbonate compensating. (2) COPD (chronic obstructive pulmonary disease): Qualifiers: COPD type: unspecified COPD Qualified Code(s): J44.9 - Chronic obstructive pulmonary disease, unspecified Code(s): J44.9 - Chronic obstructive pulmonary disease, unspecified Status: Acute Assessment and Plan: Has long history of COPD, at home takes Breztri and prn albuterol. She has mild emphysema radiographically. * 02/21/2020 PFT = FEV1 is 1.04 L after bronchodilator administration, TLC 71% mild restriction, DLCO 35%, DLCO/VA 79% Continue bronchodilator therapy and p.r.n. bronchodilators. (3) Lung cancer: Code(s): C34.90 - Malignant neoplasm of unspecified part of unspecified bronchus or lung Status: Acute Assessment and Plan: She has increasing size of right upper lobe nodules, increased in size since January 20, 2024. The 1.3 cm nodule is now 1.4 cm, the 1 cm is 1.3 cm, and she has other smaller nodules. She had a partial right upper lobectomy. She has no additional plans for radiation at this point. She will need oncology evaluation for these developments, when she is over this episode and admission. Other nodules include RLL 3 mm, TRISHA 3 mm. Peripheral radiation fibrosis in lingula. No pleural effusion. (4) Dependence on continuous supplemental oxygen: Code(s): Z99.81 - Dependence on supplemental oxygen Status: Acute Assessment and Plan: At home on 3 L at rest, 5 L with exertion, used higher flow, today switched to nasal cannula, and is using 3 L at rest, her normal home flow. (5) Tobacco abuse: Code(s): Z72.0 - Tobacco use Status: Acute Assessment and Plan: Smoked until this admission; lives alone; has smoked 60 years, now half pack per day. 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 Has used BiPAP, AirVo and high flow cannula,. now on her home flow. tolerated PT well. She may be ready to discharge tomorrow am. Can follow up in our office in 2-3 weeks. No more smoking. She has increasing size of RUL nodules from less than 2 months ago. Will need to have oncology/ Rad onc manage as an outpatient. Subjective Date/time seen: 03/17/24 20:14 Interval history: 03/17/24; Better, up in a chair now, had physical therapy, O2 flow is lower. She is on a regular nasal cannula at 3 L/min at rest, same that she used at home. 03/16/24; No major events overnight. She was up in a chair today, now in bed She is on AirVo, needs to transition to 15 high flow cannula and wean quickly. On 35 L min and 40%, saturation is 95%. She fells close to her baseline, we are talking about discharge. 03/15/24; Remains improved compared to admission, still on Airvo as this is more comfortable. She tells me that she used BiPAP last night, lower settings, 12/7, for several hours if she is remembering correctly. Sat is 93-94% on 35 L/min and 40%. Airvo is easier to wean than nasal cannula O2. Even though the flow and FiO2 are high, it can be dropped quickly in the next day to try to wean and get her ready for discharge. K+ is high today, 5.5. See labs below, DATA. BUN and creat elevated, HCO3 37. 03/14/24; Feels better, less short of breath. She likes the Airvo, however the O2 level is staying at 40-45% and 35 L/min. Not able to wean. She wore BiPAP for a few hours today. 03/12/2024, new consult; May Deatherage is a 78 year old female admitted with increased shortness of breath. She was last seen in our clinic 01/09/2024; has COPD, tobacco dependence, chronic hypoxic respiratory failure on O2; 3L with rest, 5 L with exertion; non-small cell lung CA now with 2 synchronous RUL lung cancers and an oligorecurrent from breast primary lesion involving T12 spine. She had a wedge resection in the RUL. She had a chest CT 03/04/24 showing RUL nodule 14 mm. She tells me that she had increased cough with wheezing, fatigue for 2-3 days prior to admission; she has been using her inhaler more frequently. She denies any recent fever, chest pain, abdominal pain. She has not been around any sick contacts. Her wbc was normal 5.0, anemia 7.3/25% and March 12 today dropped to 6.7 and 23%. No obvious bleeding. She has acute on chronic hypercapnic hypoxemic respiratory failure initially blood gas pH 7.30 pCO2 76.8, PO2 166 H CO3 37.3 on 15 L. After BiPAP 15/5 and 40% her blood gas has normalized, see below. Her CTA does not show a pulmonary embolus. She has pulmonary nodules that are worsening compared to January 16, 2024 consistent with metastatic disease and a stable bone lesion in L1. PMH: 1) non small cell lung CA RUL, s/p SBRT therapy July 2022 for RUL lung cancer, SBRT 09/2023-10/2023 for 2 RUL nodules and breast primary lesion involving T12 spine. history of RUL wedge resection, follows Dr. Michaud. 2) history of breast cancer 2006 s/p lumpectomy. 3) Rheumatoid arthritis on Taltz, sees Dr. Greer. DATA * Mar 15 CMP = Na 141, K+ 5.5, chloride 101, HCO3 37, BUN 42, creat 1.32, calcium 10.5. Renal function reflects diuresis. More metabolic alkalosis. We did not have an ABG today however it likely will show elevated pCO2 compensating for metabolic alkalosis. * Mar 11 all serology negative flu A/B, RSV COVID * AFSHIN 02/27/2018 AFSHIN 1:320 nucleolar pattern * Mar 11 = wbc 5, H/H 7.3, 25%, plt 220 Mar 12 = 6.8, H/H 6.7/ 23%, 195 K * ABGs ; she has adequate oxygenation, her initial hypercapnia has improved and no longer requires the BiPAP 15/5 which is a really high a difference between the inspiratory and expiratory pressure. I am going to try Airvo to oxygenate and it does have a small amount of PEEP. ////251/28/35 pH [id number] pCO2 [id number] pO2 56 88761 HCO3 [id number] Sat 88.6%98%94.5% Hbg 10.3 g7.5 g7.3 g O2 3 L15 LBiPAP 40% * Chest CTA 03/11/24 = There is mild elevation of left hemidiaphragm. There are changes of wedge resection in right lung upper lobe. There is a 13 mm nodule in right upper lobe. There is a 14 mm nodule in right upper lobe. There is a 10 mm nodule in right lower lobe. There is a 5 mm nodule in left upper lobe. There is a 18 mm nodule in lingula. There is mild atelectasis bilaterally. No pleural effusion. The heart size is normal. No pericardial effusion. There is no pulmonary embolus. There is a 4.1 cm cyst in the spleen. There is a 3.7 cm cyst in left kidney. There are old fractures multiple left rib fractures. There is severe cervical and thoracic spondylosis. There is a mixed lytic and sclerotic lesion in L1 vertebral body. IMPRESSION: 1. No pulmonary embolus. 2. Pulmonary nodules with worsening from 01/16/2024, consistent with metastatic disease. 3. Bone lesion in L1, stable from 01/18/23, suspicious for metastatic disease. 4. Mild emphysema. 02/21/2020 PFT = FEV1 is 1.04 L after bronchodilator administration, TLC 71% mild restriction, DLCO 35%, DLCO/VA 79% after bronchodilator FVC 1.56 L 67% +15%, 1.79 L, 77% FEV1 0.94 L 58% +10%, 1.04 L, 64% FEV1/FVC 60% WOW83-53% 0.35 L 17% TLC 2.82 L 71% RV 1.26 L 78% ERV RV/TLC 45% DLCO 6.6, 35% DLCO/VA 2.81, 79% Review of Systems Review of Systems: All systems reviewed & are unremarkable except as noted in HPI and below Exam Narrative: GEN: Alert, oriented, not in distress. Nasal cannula 5L = 93%. NECK: Trachea is midline CHEST: Equal air entry, symmetric excursion, decreased air entry, rare crackles, no wheezing CV: Regular S1S2 no m/g/r ABD : (+) bowel sounds Extremities : no clubbing, cyanosis, or edema,no rash, good capillary refill PSYCH: normal thought and speech Objective Data Vital Signs Vital Signs: Vital Signs - 24 hr 03/16/24 21:05 03/16/24 21:12 03/16/24 21:15 Temperature Pulse Rate 65 65 71 Respiratory Rate 20 20 Blood Pressure Pulse Oximetry 97 Oxygen Delivery High Flow Nasal Cannula Oxygen Flow Rate 7 Fraction of Inspired Oxygen 03/16/24 22:00 03/17/24 00:00 03/17/24 00:00 Temperature 36.7 C Pulse Rate 69 66 65 Respiratory Rate 18 Blood Pressure 132/76 Pulse Oximetry 98 100 Oxygen Delivery High Flow Nasal Cannula Oxygen Flow Rate 7 Fraction of Inspired Oxygen 03/17/24 00:00 03/17/24 02:00 03/17/24 02:15 Temperature Pulse Rate 65 61 58 L Respiratory Rate 14 Blood Pressure Pulse Oximetry Oxygen Delivery Oxygen Flow Rate Fraction of Inspired Oxygen 03/17/24 02:15 03/17/24 02:24 03/17/24 04:00 Temperature 36.6 C Pulse Rate 58 L 60 69 Respiratory Rate 14 15 18 Blood Pressure 131/58 L Pulse Oximetry 96 93 Oxygen Delivery BiPAP Oxygen Flow Rate Fraction of Inspired Oxygen 03/17/24 04:00 03/17/24 04:00 03/17/24 06:00 Temperature Pulse Rate 66 66 67 Respiratory Rate Blood Pressure Pulse Oximetry 95 Oxygen Delivery BiPAP Oxygen Flow Rate Fraction of Inspired Oxygen 35 03/17/24 07:39 03/17/24 07:39 03/17/24 07:51 Temperature 36.3 C L Pulse Rate 69 69 Respiratory Rate 16 16 Blood Pressure 122/59 L Pulse Oximetry 92 92 Oxygen Delivery High Flow Nasal Cannula Oxygen Flow Rate 5 Fraction of Inspired Oxygen 40 03/17/24 07:58 03/17/24 08:00 03/17/24 08:00 Temperature Pulse Rate 68 81 62 Respiratory Rate 16 16 Blood Pressure Pulse Oximetry 92 Oxygen Delivery High Flow Nasal Cannula Oxygen Flow Rate 7 Fraction of Inspired Oxygen 03/17/24 10:00 03/17/24 12:00 03/17/24 12:00 Temperature 36.9 C Pulse Rate 85 77 91 Respiratory Rate 21 H Blood Pressure 127/60 Pulse Oximetry 97 Oxygen Delivery Oxygen Flow Rate Fraction of Inspired Oxygen 03/17/24 12:00 03/17/24 13:04 03/17/24 13:07 Temperature Pulse Rate 77 Respiratory Rate 21 H Blood Pressure Pulse Oximetry 97 80 L 85 L Oxygen Delivery High Flow Nasal Cannula High Flow Nasal Cannula High Flow Nasal Cannula Oxygen Flow Rate 7 5 6 Fraction of Inspired Oxygen 40 44 03/17/24 13:10 03/17/24 13:10 03/17/24 13:19 Temperature Pulse Rate 81 78 Respiratory Rate 16 16 Blood Pressure Pulse Oximetry 90 Oxygen Delivery High Flow Nasal Cannula Oxygen Flow Rate 7 Fraction of Inspired Oxygen 03/17/24 14:00 03/17/24 16:00 03/17/24 16:00 Temperature Pulse Rate 90 89 91 Respiratory Rate 20 Blood Pressure Pulse Oximetry 93 Oxygen Delivery High Flow Nasal Cannula Oxygen Flow Rate 7 Fraction of Inspired Oxygen 03/17/24 16:44 03/17/24 17:30 03/17/24 18:00 Temperature 37.0 C Pulse Rate 91 84 Respiratory Rate 20 Blood Pressure 128/64 Pulse Oximetry 93 94 Oxygen Delivery Nasal Cannula Oxygen Flow Rate 5 Fraction of Inspired Oxygen 03/17/24 19:45 Temperature 36.7 C Pulse Rate 81 Respiratory Rate 20 Blood Pressure 108/47 L Pulse Oximetry 93 Oxygen Delivery Oxygen Flow Rate Fraction of Inspired Oxygen Intake/Output Intake/Output: Intake & Output 03/14/24 03/15/24 03/16/24 03/17/24 23:59 23:59 23:59 23:59 Intake Total 1220 1220 1420 2410 Output Total 1300 669 753 5996 Balance -80 394 670 810 Meds/Results Medications: Active Medications Generic Name Dose Route Start Last Admin Trade Name Lucianoq PRN Reason Stop Dose Admin Acetaminophen 1,000 mg 03/12/24 09:00 03/17/24 08:20 Acetaminophen 500 Mg Tablet PO 1,000 mg Q12HR GIA Administration Albuterol/Ipratropium 3 ml 03/11/24 20:00 03/17/24 13:10 Ipratropium 0.5 Mg/Albuterol Sulfate 2.5 Mg Ampul.Neb 3 Ml INHALATION 3 ml Q6HRT GIA Administration Anastrozole 1 mg 03/12/24 09:00 03/17/24 08:22 Anastrozole (*Chemo) 1 Mg Tablet PO 1 mg DAILY GIA Administration Cholestyramine Resin 4 gm 03/12/24 01:09 Cholestyramine Light 4 Gm Powd.Pack PO TIDWM PRN IBS Duloxetine HCl 30 mg 03/12/24 09:00 03/17/24 08:22 Duloxetine Hcl 30 Mg Capsule.Dr PO 30 mg DAILY GIA Administration Ferrous Sulfate 650 mg 03/15/24 12:00 03/17/24 12:32 Ferrous Sulfate [address] BY MOUTH 650 mg DAILY@1200 GIA Administration Fluticasone/Umeclidinium/Vilanterol 1 puff 03/12/24 08:00 03/17/24 07:58 Fluticasone/Umeclidin/Vilanter 100-62.5-25 Mcg Ellipta INHALATION 1 puff DAILYRT GIA Administration Folic Acid 1 mg 03/12/24 09:00 03/17/24 08:22 Folic Acid 1 Mg Tablet PO 1 mg DAILY GIA Administration Levofloxacin 750 mg 03/14/24 10:50 03/16/24 08:29 Levofloxacin 750 Mg Tablet PO 03/18/24 09:01 750 mg Q48HR GIA Administration Oxybutynin Chloride 2.5 mg 03/14/24 13:00 03/17/24 17:11 Oxybutynin Chloride 2.5 Mg Tab PO 2.5 mg TID GIA Administration Prednisone 40 mg/ Prednisone 50 mg 03/17/24 08:00 03/17/24 08:21 10 mg PO 03/19/24 23:59 50 mg DAILY@0800 GIA Administration Pregabalin 150 mg 03/12/24 09:00 03/17/24 08:22 Pregabalin (*Crx) 75 Mg Capsule PO 150 mg DAILY GIA Administration Quetiapine Fumarate 25 mg 03/12/24 21:00 03/16/24 20:11 Quetiapine Fumarate 25 Mg Tablet PO 25 mg QHS GIA Administration Radiology Results: ITS Impressions Chest X-Ray 03/11/24 15:57 IMPRESSION: Right apical lung mass left-sided pleural effusion, as detailed Chest CTA 03/11/24 18:01 IMPRESSION: 1. No pulmonary embolus. 2. Pulmonary nodules with worsening from 01/16/2024, consistent with metastatic disease. 3. Bone lesion in L1, stable from 01/18/23, suspicious for metastatic disease. 4. Mild emphysema. Chest Ultrasound 03/11/24 18:01 IMPRESSION: 1. No left-sided pleural effusion. Labs Labs: Laboratory Results - last 24 hr 03/11/24 03/17/24 21:34 04:18 WBC 7.8 RBC 2.94 L Hgb 9.2 L Hct 30.2 L MCV 102.7 H MCH 31.3 MCHC 30.5 L RDW 14.0 Plt Count 208 MPV 10.0 Sodium 139 Potassium 4.4 Chloride 100 Carbon Dioxide 36 H Anion Gap 3 L BUN 30 H Creatinine 1.10 H Estim Creat Clear Calc 35 Estimated GFR 48 L Glucose 93 Calcium 9.9 Total Bilirubin 0.3 AST 22 ALT 29 Alkaline Phosphatase 85 Total Protein 6.0 L Albumin 3.1 L Adenosine Deaminase 890
[2024-03-17] MEDS: QUEtiapine FUMARATE 25 MG TABLET PO (21:33)
[2024-03-18] VITALS (22 sets, daily range): BP systolic 112–142; BP diastolic 41–69; PULSE 69–88; RESP 16–20; TEMP 36.6–37.2; O2SAT 91–99
[2024-03-18] MEDS: IPRATROPIUM 0.5 MG/ALBUTEROL SULFATE 2.5 MG AMPUL.NEB 3 ML INHALATION ×2 (03:27→08:04)
[2024-03-18 04:29] LABS: Hematocrit 28.7 % (37.0-47.0); Hemoglobin 8.6 g/dL (12.0-15.0); Mean Corpuscular Hemoglobin 31.2 pg (26-34); Mean Platelet Volume 9.9 fl (7.4-10.4); Platelet Count Result 211 k/mm3 (150-375); Red Blood Count 2.76 M/mm3 (4.2-5.4); Red Cell Distribution Width 14.1 % (11.5-14.5); White Blood Count 9.9 K/mm3 (4.5-10.0)
[2024-03-18 04:41] LABS: Alanine Aminotransferase 28 U/L (6-35); Alkaline Phosphatase 97 U/L (38-126); Anion Gap 4 mmol/L (4-12); Aspartate Amino Transferase 19 U/L (14-36); Bilirubin,Total 0.2 mg/dL (0.2-1.3); Blood Urea Nitrogen 30 mg/dL (7-17); Calcium 10.1 mg/dL (8.4-10.2); Carbon Dioxide 36 mmol/L (22-30); Chloride 100 mmol/L (98-107); Estimated CRCL calculation 41 ml/min; Estimated Glomerular Filt Rate 59; Glucose 107 mg/dL (65-110); Potassium 4.1 mmol/L (3.4-5.0); Sodium 140 mmol/L (137-145)
[2024-03-18] MEDS: FLUTICASONE/UMECLIDIN/VILANTER 100-62.5-25 MCG ELLIPTA 1 PUFF INHALATION (08:07)
[2024-03-18] MEDS: ANASTROZOLE (*CHEMO) 1 MG TABLET PO (09:07)
[2024-03-18] MEDS: predniSONE 40 MG, predniSONE 10 MG 50 MG PO (09:07)
[2024-03-18] MEDS: oxyBUTYnin CHLORIDE 2.5 MG TAB PO ×2 (09:07→12:00)
[2024-03-18] MEDS: FOLIC ACID 1 MG TABLET PO (09:07)
[2024-03-18] MEDS: DULoxetine HCL 30 MG CAPSULE.DR PO (09:08)
[2024-03-18] MEDS: levoFLOXacin 750 MG TABLET PO (09:08)
[2024-03-18] MEDS: PREGABALIN (*CRX) 75 MG CAPSULE 150 MG PO (09:08)
[2024-03-18] MEDS: ACETAMINOPHEN 500 MG TABLET 1000 MG PO ×2 (09:08→20:33)
--- NOTE | 2024-03-18 09:10 | PCNWS ---
Weekly nutritional screen. Patient is tolerating current diet with adequate intake. No weight loss reported. No nutritional needs at this time.
[2024-03-18] MEDS: FERROUS SULFATE 325 MG TABLET DR 650 MG BY MOUTH (11:58)
--- NOTE | 2024-03-18 13:13 | P.PNPL_ITS ---
Progress Note: A&P Assessment and Plan (1) COPD (chronic obstructive pulmonary disease): Qualifiers: COPD type: unspecified COPD Qualified Code(s): J44.9 - Chronic obstructive pulmonary disease, unspecified Code(s): J44.9 - Chronic obstructive pulmonary disease, unspecified Status: Acute Assessment and Plan: Has long history of COPD, at home takes Breztri and prn albuterol. She has mild emphysema radiographically. At home on 3 L at rest, 5 L with exertion, 4 L with sleep. * 02/21/2020 PFT = FEV1 is 1.04 L after bronchodilator administration, TLC 71% mild restriction, DLCO 35%, DLCO/VA 79% She tells me that she had increased cough with wheezing, fatigue for 2-3 days prior to admission; she has been using her inhaler more frequently. She denies any recent fever, chest pain, abdominal pain. 03/17/24: Plan: Continue bronchodilator therapy and p.r.n. bronchodilators. At home on 3 L at rest, 5 L with exertion, used higher flow, today switched to nasal cannula, and is using 3 L at rest, her normal home flow. plan: Now weaned to 3 L/min at rest, will need Home O2 study in am. Has used BiPAP, AirVo and high flow cannula,. now on her home flow. tolerated PT well. She may be ready to discharge tomorrow am. Can follow up in our office in 2-3 weeks. No more smoking. She has increasing size of RUL nodules from less than 2 months ago. Will need to have oncology/ Rad onc manage as an outpatient. 03/18/24: Patient states she is breathing at her baseline. She still has a persistent cough but is close to her baseline. Currently she is on 3 L at rest with saturations 97%. White blood cell count 9.9, creatinine 0.93 off BiPAP for 36 hours. Patient tells me she will not be able to tolerate BiPAP at home. Plan: Today is day 8 of steroids and will discontinue. Will continue trelegy 100 q.day. this should provide adequate beta agonist and long-acting muscarinic antagonist and will discontinue DuoNebs Q 6. Today is day 8 of antibiotics and Levaquin has been discontinued after today's dose. I will perform overnight oximetry on [address] with [address]. Cruz, will follow with you. (2) Acute on chronic respiratory failure with hypoxia and hypercapnia: Code(s): J96.21 - Acute and chronic respiratory failure with hypoxia; J96.22 - Acute and chronic respiratory failure with hypercapnia Status: Acute Assessment and Plan: She has chronic CO2 retention, prior blood gases show this. 06/22/2022 ABG 7.40/56/56. ABG on admission 03/11/2024 7.30/77/167 on non-rebreather mask. ABG 03/12/2024 on BiPAP 7.42/59/73. she is on oxygen at home, on admission was hypoxemic, required increase oxygen, CO2 was elevated, improved on BiPAP. She has high serum bicarbonate compensating. 03/18/24: Patient tells me today she will not be able to wear BiPAP at home she can not sleep with it. Plan: Chronic hypercarbic respiratory failure intolerant to positive airway pressure. Will not try to initiate noninvasive ventilation currently. Will try to provide adequate oxygenation with supplemental oxygen. (3) Lung cancer: Code(s): C34.90 - Malignant neoplasm of unspecified part of unspecified bronchus or lung Status: Acute Assessment and Plan: 03/11/24: She has increasing size of right upper lobe nodules, increased in size since January 20, 2024. The 1.3 cm nodule is now 1.4 cm, the 1 cm is 1.3 cm, and she has other smaller nodules. She had a partial right upper lobectomy. She has no additional plans for radiation at this point. She will need oncology evaluation for these developments, when she is over this episode and admission. Other nodules include RLL 3 mm, TRISHA 3 mm. Peripheral radiation fibrosis in lingula. No pleural effusion. 03/17/24: She has increasing size of RUL nodules from less than 2 months ago. Wi ll need to have oncology/ Rad onc manage as an outpatient. 03/18/24: Will need to have oncology/ Rad onc manage as an outpatient. (4) Tobacco abuse: Code(s): Z72.0 - Tobacco use Status: Acute Assessment and Plan: Smoked until this admission; lives alone; has smoked 60 years, now half pack per day. 03/18/24: I have told the patient is absolutely necessary that she discontinue smoking. Subjective Date/time seen: 03/18/24 13:13 Interval history: 03/12/2024, new consult; May Deathraghu is a 78 year old female admitted with increased shortness of breath. She was last seen in our clinic 01/09/2024; has COPD, tobacco dependence, chronic hypoxic respiratory failure on O2; 3L with rest, 5 L with exertion; non-small cell lung CA now with 2 synchronous RUL lung cancers and an oligorecurrent from breast primary lesion involving T12 spine. She had a wedge resection in the RUL. She had a chest CT 03/04/24 showing RUL nodule 14 mm. She tells me that she had increased cough with wheezing, fatigue for 2-3 days prior to admission; she has been using her inhaler more frequently. She denies any recent fever, chest pain, abdominal pain. She has not been around any sick contacts. Her wbc was normal 5.0, anemia 7.3/25% and March 12 today dropped to 6.7 and 23%. No obvious bleeding. She has acute on chronic hy percapnic hypoxemic respiratory failure initially blood gas pH 7.30 pCO2 76.8, PO2 166 H CO3 37.3 on 15 L. After BiPAP 15/5 and 40% her blood gas has normalized, see below. Her CTA does not show a pulmonary embolus. She has pulmonary nodules that are worsening compared to January 16, 2024 consistent with metastatic disease and a stable bone lesion in L1. PMH: 1) non small cell lung CA RUL, s/p SBRT therapy July 2022 for RUL lung cancer, SBRT 09/2023-10/2023 for 2 RUL nodules and breast primary lesion involving T12 spine. history of RUL wedge resection, follows Dr. Michaud. 2) history of breast cancer 2005 s/p lumpectomy. 3) Rheumatoid arthritis on Taltz, sees Dr. Greer. 03/14/24; Feels better, less short of breath. She likes the Airvo, however the O2 level is staying at 40-45% and 35 L/min. Not able to wean. She wore BiPAP for a few hours today. 03/15/24; Remains improved compared to admission, still on Airvo as this is more comfortable. She tells me that she used BiPAP last night, lower settings, 12/7, for several hours if she is remembering correctly. Sat is 93-94% on 35 L/min and 40%. Airvo is easier to wean than nasal cannula O2. Even though the flow and FiO2 are high, it can be dropped quickly in the next day to try to wean and get her ready for discharge. K+ is high today, 5.5. See labs below, DATA. BUN and creat elevated, HCO3 37. 03/16/24; No major events overnight. She was up in a chair today, now in bed She is on AirVo, needs to transition to 15 high flow cannula and wean quickly. On 35 L min and 40%, saturation is 95%. She fells close to her baseline, we are talking about discharge. 03/17/24; Better, up in a chair now, had physical therapy, O2 flow is lower. She is on a regular nasal cannula at 3 L/min at rest, same that she used at home. 03/18/24: Patient states she is breathing at her baseline. She still has a persistent cough but is close to her baseline. Currently she is on 3 L at rest with saturations 97%. White blood cell count 9.9, creatinine 0.93 off BiPAP for 36 hours. Patient tells me she will not be able to tolerate BiPAP at home. DATA * Mar 15 CMP = Na 141, K+ 5.5, chloride 101, HCO3 37, BUN 42, creat 1.32, calcium 10.5. Renal function reflects diuresis. More metabolic alkalosis. We did not have an ABG today however it likely will show elevated pCO2 compensating for metabolic alkalosis. * Mar 11 all serology negative flu A/B, RSV COVID * AFSHIN 02/27/2018 AFSHIN 1:320 nucleolar pattern * Mar 11 = wbc 5, H/H 7.3, 25%, plt 220 Mar 12 = 6.8, H/H 6.7/ 23%, 195 K * ABGs ; she has adequate oxygenation, her initial hypercapnia has improved and no longer requires the BiPAP 15/5 which is a really high a difference between the inspiratory and expiratory pressure. I am going to try Airvo to oxygenate and it does have a small amount of PEEP. 06/22/////35 pH 7.3977.307.41 pCO2 55.776.858.6 pO2 56 17295 HCO3 33.537.336.9 Sat 88.6%98%94.5% Hbg 10.3 g7.5 g7.3 g O2 3 L15 LBiPAP 40% * Chest CTA 03/11/24 = There is mild elevation of left hemidiaphragm. There are changes of wedge resection in right lung upper lobe. There is a 13 mm nodule in right upper lobe. There is a 14 mm nodule in right upper lobe. There is a 10 mm nodule in right lower lobe. There is a 5 mm nodule in left upper lobe. There is a 18 mm nodule in lingula. There is mild atelectasis bilaterally. No pleural effusion. The heart size is normal. No pericardial effusion. There is no pulmonary embolus. There is a 4.1 cm cyst in the spleen. There is a 3.7 cm cyst in left kidney. There are old fractures multiple left rib fractures. There is severe cervical and thoracic spondylosis. There is a mixed lytic and sclerotic lesion in L1 vertebral body. IMPRESSION: 1. No pulmonary embolus. 2. Pulmonary nodules with worsening from 01/16/2024, consistent with metastatic disease. 3. Bone lesion in L1, stable from 01/18/23, suspicious for metastatic disease. 4. Mild emphysema. 02/21/2020 PFT = FEV1 is 1.04 L after bronchodilator administration, TLC 71% mild restriction, DLCO 35%, DLCO/VA 79% after bronchodilator FVC 1.56 L 67% +15%, 1.79 L, 77% FEV1 0.94 L 58% +10%, 1.04 L, 64% FEV1/FVC 60% PHM53-51% 0.35 L 17% TLC 2.82 L 71% RV 1.26 L 78% ERV RV/TLC 45% DLCO 6.6, 35% DLCO/VA 2.81, 79% Review of Systems Constitutional: Constitutional: Reports no additional constitutional complaints Eyes: Eyes: Reports no additional eye complaints ENT: Reports system reviewed and no additional complaints, except as documented Cardiovascular: Cardiovascular: Reports no additional cardiovascular complaints Respiratory: Respiratory: Reports no additional respiratory complaints Gastrointestinal: Gastrointestinal: Reports no additional gastrointestinal complaints Musculoskeletal: Musculoskeletal: Reports no additional musculoskeletal complaints Neurologic: Reports system reviewed and no additional complaints, except as documented Psychiatric: Psychiatric: Reports no additional psychiatric complaints Endocrine: Endocrine: Reports no additional endocrine complaints Hematologic/Lymphatic: Hematologic/Lymphatic: Reports no additional hematologic/lymphatic complaints Allergic/Immunologic: Allergic/Immunologic: Reports no additional allergic/immunologic complaints Exam Const: General: cooperative, healthy appearing and comfortable Orientation/consciousness: oriented to person, oriented to place and oriented to time HENMT: Head: normal to inspection Ears: hearing grossly normal bilaterally Eyes: General: appearance normal, both eyes and all related structures Neck: Neck: normal visual inspection Chest: Chest palpation & inspection: normal inspection of the chest Resp: Effort & Inspection: normal respiratory effort and able to speak in complete sentences Auscultation: no crackles, no rales, no rhonchi, no wheezes and lung sounds not diminished Cardio: Jugular venous distension: no JVD GI: Inspection: normal to inspection GI Palp: No abdominal tenderness Skin: General skin exam: normal color Neuro: General: oriented to person, oriented to place and oriented to time Extrem: General: normal to inspection Psych: Appearance: grossly normal Objective Data Vital Signs Vital Signs: Vital Signs - 24 hr 03/17/24 13:19 03/17/24 14:00 03/17/24 16:00 Temperature Pulse Rate 78 90 89 Respiratory Rate 16 Blood Pressure Pulse Oximetry Oxygen Delivery Oxygen Flow Rate 03/17/24 16:00 03/17/24 16:44 03/17/24 17:30 Temperature 37.0 C Pulse Rate 91 91 Respiratory Rate 20 20 Blood Pressure 128/64 Pulse Oximetry 93 93 94 Oxygen Delivery High Flow Nasal Cannula Nasal Cannula Oxygen Flow Rate 7 5 03/17/24 18:00 03/17/24 19:45 03/17/24 20:00 Temperature 36.7 C Pulse Rate 84 81 Respiratory Rate 20 Blood Pressure 108/47 L Pulse Oximetry 93 93 Oxygen Delivery Nasal Cannula Oxygen Flow Rate 5 03/17/24 20:00 03/17/24 20:42 03/17/24 20:43 Temperature Pulse Rate 85 63 Respiratory Rate 16 Blood Pressure Pulse Oximetry 93 Oxygen Delivery High Flow Nasal Cannula Oxygen Flow Rate 5 03/17/24 22:00 03/17/24 22:32 03/17/24 23:50 Temperature 36.3 C L Pulse Rate 82 73 72 Respiratory Rate 20 Blood Pressure 130/52 L Pulse Oximetry 94 97 Oxygen Delivery Nasal Cannula Oxygen Flow Rate 4 03/18/24 00:00 03/18/24 02:00 03/18/24 03:27 Temperature Pulse Rate 75 69 71 Respiratory Rate 16 Blood Pressure Pulse Oximetry Oxygen Delivery Oxygen Flow Rate 03/18/24 04:00 03/18/24 04:00 03/18/24 04:00 Temperature 36.7 C Pulse Rate 71 73 72 Respiratory Rate 20 Blood Pressure 128/51 L Pulse Oximetry 93 97 Oxygen Delivery Nasal Cannula Oxygen Flow Rate 3 03/18/24 06:00 03/18/24 07:30 03/18/24 07:49 Temperature 36.8 C Pulse Rate 69 71 Respiratory Rate 16 Blood Pressure 129/64 Pulse Oximetry 92 93 Oxygen Delivery High Flow Nasal Cannula Oxygen Flow Rate 6 03/18/24 08:00 03/18/24 08:04 03/18/24 09:20 Temperature Pulse Rate 88 73 Respiratory Rate 16 Blood Pressure Pulse Oximetry 92 Oxygen Delivery High Flow Nasal Cannula Oxygen Flow Rate 4 03/18/24 10:00 03/18/24 11:45 03/18/24 12:00 Temperature 36.6 C Pulse Rate 85 81 Respiratory Rate 20 Blood Pressure 142/61 H Pulse Oximetry 95 91 Oxygen Delivery High Flow Therapy with Na Oxygen Flow Rate 5 03/18/24 12:00 Temperature Pulse Rate 82 Respiratory Rate Blood Pressure Pulse Oximetry Oxygen Delivery Oxygen Flow Rate Intake/Output Intake/Output: Intake & Output 03/15/24 03/16/24 03/17/24 03/18/24 23:59 23:59 23:59 23:59 Intake Total 1220 1420 2410 730 Output Total 612 554 0546 450 Balance 394 670 810 280 Meds/Results Medications: Active Medications Generic Name Dose Route Start Last Admin Trade Name Freq PRN Reason Stop Dose Admin Acetaminophen 1,000 mg 03/12/24 09:00 03/18/24 09:08 Acetaminophen 500 Mg Tablet PO 1,000 mg Q12HR GIA Administration Albuterol/Ipratropium 3 ml 03/11/24 20:00 03/18/24 08:04 Ipratropium 0.5 Mg/Albuterol Sulfate 2.5 Mg Ampul.Neb 3 Ml INHALATION 3 ml Q6HRT GIA Administration Anastrozole 1 mg 03/12/24 09:00 03/18/24 09:07 Anastrozole (*Chemo) 1 Mg Tablet PO 1 mg DAILY GIA Administration Cholestyramine Resin 4 gm 03/12/24 01:09 Cholestyramine Light 4 Gm Powd.Pack PO TIDWM PRN IBS Duloxetine HCl 30 mg 03/12/24 09:00 03/18/24 09:08 Duloxetine Hcl 30 Mg Capsule.Dr PO 30 mg DAILY GIA Administration Ferrous Sulfate 650 mg 03/15/24 12:00 03/18/24 11:58 Ferrous Sulfate [address] BY MOUTH 650 mg DAILY@1200 GIA Administration Fluticasone/Umeclidinium/Vilanterol 1 puff 03/12/24 08:00 03/18/24 08:07 Fluticasone/Umeclidin/Vilanter 100-62.5-25 Mcg Ellipta INHALATION 1 puff DAILYRT GIA Administration Folic Acid 1 mg 03/12/24 09:00 03/18/24 09:07 Folic Acid 1 Mg Tablet PO 1 mg DAILY GIA Administration Oxybutynin Chloride 2.5 mg 03/14/24 13:00 03/18/24 12:00 Oxybutynin Chloride 2.5 Mg Tab PO 2.5 mg TID GIA Administration Prednisone 40 mg/ Prednisone 50 mg 03/17/24 08:00 03/18/24 09:07 10 mg PO 03/19/24 23:59 50 mg DAILY@0800 GIA Administration Pregabalin 150 mg 03/12/24 09:00 03/18/24 09:08 Pregabalin (*Crx) 75 Mg Capsule PO 150 mg DAILY GIA Administration Quetiapine Fumarate 25 mg 03/12/24 21:00 03/17/24 21:33 Quetiapine Fumarate 25 Mg Tablet PO 25 mg QHS GIA Administration Radiology Results: ITS Impressions Chest X-Ray 03/11/24 15:57 IMPRESSION: Right apical lung mass left-sided pleural effusion, as detailed Chest CTA 03/11/24 18:01 IMPRESSION: 1. No pulmonary embolus. 2. Pulmonary nodules with worsening from 01/16/2024, consistent with metastatic disease. 3. Bone lesion in L1, stable from 01/18/23, suspicious for metastatic disease. 4. Mild emphysema. Chest Ultrasound 03/11/24 18:01 IMPRESSION: 1. No left-sided pleural effusion. Labs Labs: Laboratory Results - last 24 hr 03/11/24 03/18/24 21:34 03:53 WBC 9.9 RBC 2.76 L Hgb 8.6 L Hct 28.7 L MCV 104.0 H MCH 31.2 MCHC 30.0 L RDW 14.1 Plt Count 211 MPV 9.9 Sodium 140 Potassium 4.1 Chloride 100 Carbon Dioxide 36 H Anion Gap 4 BUN 30 H Creatinine 0.93 Estim Creat Clear Calc 41 Estimated GFR 59 Glucose 107 Calcium 10.1 Total Bilirubin 0.2 AST 19 ALT 28 Alkaline Phosphatase 97 Total Protein 5.0 L Albumin 3.0 L Adenosine Deaminase 890
--- NOTE | 2024-03-18 13:36 | P.CONUR_ITS ---
Assessment and Plan Assessment and plan (1) Mixed stress and urge urinary incontinence: Code(s): N39.46 - Mixed incontinence Status: Acute Assessment and Plan: Indwelling Lanza draining clear yellow urine. She reports intermittent bladder spasms since Lanza placement. She reports chronic worsening mixed stress and urge urinary incontinence at home. Possibly overactive bladder component. She has not tried medications prior to this hospital admission. No known knowledge of previous urology evaluation. Plan - She was started on TID oxybutynin by the hospitalist team on 03/14/24. Discontinue oxybutynin, high risk for side effects. Start daily solifenacin. - Indwelling Lanza catheter placed 03/16/24 for unclear reason. No PVR bladder scan documented. Low suspicion for urinary retention. - Remove indwelling Lanza tomorrow morning. Check PVR bladder scan 3-4hrs following Lanza removal. - Renal function stable. - UA negative for infection. She is not interested in pursuing advanced bladder workup as an outpatient. Continue conservative medical management. Recommend timed voiding Q2-3hrs while awake and limiting fluids 2-3hrs prior to bed. Also advised to set an alarm 3- 4hrs into sleep cycle to empty her bladder. We reviewed common bladder irritants as well. All questions answered to patient's satisfaction. Urology Consult Note HPI Date Seen: 03/18/24 Requesting Physician: Leslie Manjarrez MD Primary Care Provider: Bernadette Cedillo MD Consult Narrative Reason for consult: Urinary incontience Narrative: May Brenda is a 78 year old female admitted 03/11/24 with shortness of breath, COPD exacerbation, acute on chronic respiratory failure. Medical history significant for O2 dependency, lung cancer, breast cancer, CKD III, IBS, current everyday smoker, EColi UTI. Urology consulted for evaluation and management of urinary incontinence. She was started on TID oxybutynin by the hospitalist team on 03/14/24. Indwelling Lanza catheter placed 03/16/24 for unclear reason. No PVR bladder scan documented. Renal function stable. UA negative for infection. DNR code status noted. Patient comfortable on exam. Indwelling Lanza draining clear yellow urine. She reports intermittent bladder spasms since Lanza placement. She reports chronic worsening mixed stress and urge urinary incontinence at home. Has not tried medications prior to this hospital admission. No known knowledge of previous urology evaluation. She is not interested in pursuing advanced bladder workup as an outpatient. PERTINENT LABS: 03/18/24: WBC 9.9, HGB 8.6, Cr 0.93 03/12/24: Urinalysis negative for infection PERTINENT IMAGIN01/2024 CT AP W CON - There are cysts in the kidneys measuring up to 3.8 cm on the left. There is lumbar levoscoliosis and severe spondylosis. There are mixed lytic and sclerotic lesion in L1. Review of Systems 2 Constitutional: Constitutional: Reports lethargy and Reports weakness Eyes: Eyes: Reports no additional eye complaints ENT: Reports Normal hearing present Cardiovascular: Cardiovascular: Reports no additional cardiovascular complaints Respiratory: Respiratory: Reports dyspnea on exertion Gastrointestinal: Gastrointestinal: Reports no additional gastrointestinal complaints Genitourinary: Genitourinary: Reports as per HPI, Denies hematuria, Denies flank pain, Reports urinary incontinence and Reports urinary urgency Musculoskeletal: Musculoskeletal: Reports stiffness Psychiatric: Psychiatric: Reports no additional psychiatric complaints [facility] Past Medical History Medical History (Updated 03/18/24 @ 14:43 by Miriam Hall APRN) Pleural effusion Chronic renal insufficiency, stage III (moderate) Pneumonia PVD (peripheral vascular disease) Colon polyp Psoriatic arthritis Dependence on continuous supplemental oxygen Other specified counseling GERD (gastroesophageal reflux disease) Tobacco abuse Lung cancer Encounter for medication management Neuropathy Anxiety Arthritis Breast cancer COPD (chronic obstructive pulmonary disease) Irritable bowel disease Surgical History Surgical History S/P lumpectomy of breast History of tonsillectomy Hx of cholecystectomy History of liver biopsy H/O cataract extraction History of appendectomy History of knee replacement History of carpal tunnel release History of lung surgery Family History Family History Mother Diabetes mellitus Family history of lung cancer Family history of malignant neoplasm of uterus Family history of psoriasis Family history of malignant neoplasm Sibling Diabetes mellitus Father Family history of chronic obstructive pulmonary disease Family history of lung cancer Hypertension Family history of cardiovascular disease Grandparent Family history of malignant neoplasm of uterus Family history of coronary artery disease Social History Social History Smoking packs per day: 0.5 Smoking cigarettes per day: 10.0 Years smoked: 50 Smoking pack-years: 25.00 Smoking status: Current every day smoker Tobacco type: cigarettes Second hand tobacco smoke exposure: Yes Smoking end date: 06/15/22 Alcohol intake: never Substance use: never Substance use type: does not use Do You Feel Safe in your Home?: Yes Lack of Transportation: No Lack of Food: Never True Current Housing: I Have Housing Concerned About Future Housing: No Difficulty Paying Gas/Electric Bills: No Difficulty Paying for Meds: No Currently Unemployed: No Education: High School Diploma/GED Difficulty w/ Childcare or Family Care: No Living arrangements: with family Occupation/Education: retired Gender identity (if verbalized by the patient): Female Spiritual care concerns: No Agree to blood products: Yes Meds Home Medications and Allergies Home Medications ?Medication ?Instructions ?Recorded ?Confirmed ?Type aspirin 81 mg tablet,delayed 81 mg PO DAILY 01/03/19 03/11/24 History release (Ian Low Dose Aspirin) awumgchi-vpmcipw-ofad-lutein tablet 1 tablet PO DAILY 06/04/19 03/11/24 History cholecalciferol (vitamin D3) 25 25 mcg PO DAILY 05/12/21 03/11/24 History mcg (1,000 unit) capsule vit C 250 mg-vit E 90 mg-zinc 40 1 tablet PO BID 06/30/22 03/11/24 History mg-copper 1 oz-wpxufv-qpbebn capsule (PreserVision AREDS-2) anastrozole 1 mg tablet 1 mg PO DAILY 07/14/22 03/11/24 History ipratropium 0.5 mg-albuterol 3 mg 3 ml inhalation BID 11/09/22 03/11/24 History (2.5 mg base)/3 mL nebulization soln ascorbate calcium (vitamin C) 500 500 mg PO DAILY 12/29/22 03/11/24 History mg tablet ferrous sulfate 325 mg (65 mg 650 mg PO DAILY 12/29/22 03/11/24 History iron) tablet (FeroSul) budesonide 160 mcg-glycopyr 9 See Rx Instructions .Route 04/11/23 03/11/24 Rx mcg-formot 4.8 mcg/actuation HFA .COMPLEX #10.7 grams inhaler (Breztri Aerosphere) lisinopril 10 mg tablet 10 mg PO DAILY #90 tabs 05/19/23 03/11/24 Rx ixekizumab 80 mg/mL subcutaneous See Rx Instructions .Route 06/22/23 03/11/24 Rx auto-injector (Taltz Autoinjector) .COMPLEX #3 mL palbociclib 100 mg capsule 100 mg PO DAILY 07/18/23 03/11/24 History (Ibrance) pregabalin 150 mg capsule 150 mg PO DAILY #90 caps 09/13/23 03/11/24 Rx quetiapine 25 mg tablet 25 mg PO QHS #90 tabs 10/25/23 03/11/24 Rx paroxetine HCl 40 mg tablet 20 mg (1/2 x 40 mg) PO DAILY #90 01/22/24 03/11/24 Rx tabs folic acid 1 mg tablet 1 mg PO DAILY #90 tabs 01/26/24 03/11/24 Rx acetaminophen 500 mg tablet 1,000 mg PO BID pain 03/11/24 03/11/24 History cholestyramine-aspartame 4 gram 1 ea PO TIDWM PRN IBS 03/11/24 03/11/24 History oral powder for susp in a packet (Prevalite) duloxetine 30 mg capsule,delayed 30 mg PO DAILY #30 caps 03/18/24 Rx release Allergies Allergy/AdvReac Type Severity Reaction Status Date / Time bupropion (From Wellbutrin) Allergy Intermediate Rash Verified 03/11/24 22:19 adhesive tape Allergy Unknown BLISTERS Verified 03/11/24 22:19 Bleach (Sodium Hypochlorite) Allergy Unknown Itching Verified 03/11/24 22:19 benzocaine (From Tigan (with AdvReac Unknown Unknown Verified 03/11/24 22:19 benzocaine)) trimethobenzamide AdvReac Unknown N/V Verified 03/11/24 22:19 nickel AdvReac Itching Verified 03/11/24 22:19 Vital Signs Vital Signs - 24 hr 03/17/24 14:00 03/17/24 16:00 03/17/24 16:00 Temperature Pulse Rate 90 89 91 Respiratory Rate 20 Blood Pressure Pulse Oximetry 93 Oxygen Delivery High Flow Nasal Cannula Oxygen Flow Rate 7 03/17/24 16:44 03/17/24 17:30 03/17/24 18:00 Temperature 98.6 F Pulse Rate 91 84 Respiratory Rate 20 Blood Pressure 128/64 Pulse Oximetry 93 94 Oxygen Delivery Nasal Cannula Oxygen Flow Rate 5 03/17/24 19:45 03/17/24 20:00 03/17/24 20:00 Temperature 98.1 F Pulse Rate 81 85 Respiratory Rate 20 Blood Pressure 108/47 L Pulse Oximetry 93 93 Oxygen Delivery Nasal Cannula Oxygen Flow Rate 5 03/17/24 20:42 03/17/24 20:43 03/17/24 22:00 Temperature Pulse Rate 63 82 Respiratory Rate 16 Blood Pressure Pulse Oximetry 93 Oxygen Delivery High Flow Nasal Cannula Oxygen Flow Rate 5 03/17/24 22:32 03/17/24 23:50 03/18/24 00:00 Temperature 97.4 F L Pulse Rate 73 72 75 Respiratory Rate 20 Blood Pressure 130/52 L Pulse Oximetry 94 97 Oxygen Delivery Nasal Cannula Oxygen Flow Rate 4 03/18/24 02:00 03/18/24 03:27 03/18/24 04:00 Temperature Pulse Rate 69 71 71 Respiratory Rate 16 Blood Pressure Pulse Oximetry 93 Oxygen Delivery Nasal Cannula Oxygen Flow Rate 3 03/18/24 04:00 03/18/24 04:00 03/18/24 06:00 Temperature 98.0 F Pulse Rate 73 72 69 Respiratory Rate 20 Blood Pressure 128/51 L Pulse Oximetry 97 Oxygen Delivery Oxygen Flow Rate 03/18/24 07:30 03/18/24 07:49 03/18/24 08:00 Temperature 98.3 F Pulse Rate 71 88 Respiratory Rate 16 Blood Pressure 129/64 Pulse Oximetry 92 93 Oxygen Delivery High Flow Nasal Cannula Oxygen Flow Rate 6 03/18/24 08:04 03/18/24 09:20 03/18/24 10:00 Temperature Pulse Rate 73 85 Respiratory Rate 16 Blood Pressure Pulse Oximetry 92 Oxygen Delivery High Flow Nasal Cannula Oxygen Flow Rate 4 03/18/24 11:45 03/18/24 12:00 03/18/24 12:00 Temperature 97.8 F Pulse Rate 81 82 Respiratory Rate 20 Blood Pressure 142/61 H Pulse Oximetry 95 91 Oxygen Delivery High Flow Therapy with Na Oxygen Flow Rate 5 Exam 2 Const: General: comfortable and no acute distress Eyes: General: appearance normal, both eyes and all related structures Resp: Effort & Inspection: normal respiratory effort Other: O2 supplement Urinary Catheter: Urinary Catheter: patent and draining and urine clear Neuro: Speech: normal speech Psych: Speech and movement: Normal speech and movement present Affect: n ormal affect Results Labs 03/18/24 03:53 03/18/24 03:53 Labs: Short CBC 03/18/24 Range/Units 03:53 WBC 9.9 (4.5-10.0) K/mm3 Hgb 8.6 L (12.0-15.0) g/dL Hct 28.7 L (37.0-47.0) % Plt Count 211 (150-375) k/mm3 BMP 03/18/24 03:53 Sodium 140 Potassium 4.1 Chloride 100 Carbon Dioxide 36 H BUN 30 H Creatinine 0.93 Glucose 107 Calcium 10.1 Liver Function 03/18/24 Range/Units 03:53 Total Bilirubin 0.2 (0.2-1.3) mg/dL AST 19 (14-36) U/L ALT 28 (6-35) U/L Alkaline Phosphatase 97 (38-126) U/L Albumin 3.0 L (3.5-5.1) g/dL
--- NOTE | 2024-03-18 17:15 | PM.IMPN ---
Progress Note: A&P Assessment and Plan (1) COPD exacerbation: Code(s): J44.1 - Chronic obstructive pulmonary disease with (acute) exacerbation Status: Acute Assessment and Plan: Admit to IMU Unable to tolerate BiPAP High-flow nasal cannula (2) Respiratory failure: Qualifiers: Chronicity: acute on chronic Respiratory failure complication: unspecified whether with hypoxia or hypercapnia Qualified Code(s): J96.20 - Acute and chronic respiratory failure, unspecified whether with hypoxia or hypercapnia Code(s): J96.90 - Respiratory failure, unspecified, unspecified whether with hypoxia or hypercapnia Status: Acute Assessment and Plan: Unable to tolerate BiPAP (3) Chronic renal insufficiency, stage III (moderate): Code(s): N18.30 - Chronic kidney disease, stage 3 unspecified Status: Acute Assessment and Plan: Continue to monitor (4) Primary cancer of left lower lobe of lung: Code(s): C34.32 - Malignant neoplasm of lower lobe, left bronchus or lung Status: Acute Assessment and Plan: Follow-up in outpatient setting (5) Dependence on continuous supplemental oxygen: Code(s): Z99.81 - Dependence on supplemental oxygen Status: Acute Assessment and Plan: High-flow nasal cannula (6) Tobacco abuse: Code(s): Z72.0 - Tobacco use Status: Acute Assessment and Plan: Nicotine patch as needed (7) Pleural effusion: Code(s): J90 - Pleural effusion, not elsewhere classified Status: Acute Assessment and Plan: Chest ultrasound show no pleural effusion Plan COPD exacerbation -Current smoker -currently on HFNC at 40L -CXR shows left pleural effusion but not on chest US -Vital signs improved and stable -Ceftriaxone and Azithromycin -DC Methylprednisone 40mg IV q 6hrs -Oral Prednisone taper -negative nasal MRSA -encourage oral intake Stress Urinary Incontinence -D/C Ditropan TID -Started Solifenacin 5 mg PO QD -DC Lanza after PVR scan -needs sling -outpatient follow-up with the urogynecologist Subjective Date/time seen: 03/18/24 17:15 Interval history: No acute events overnight. Patient in high-flow nasal cannula at 4-10 L. urology consulted for urinary incontinence. Urology discontinued oxybutynin and started solifenacin. Will remove Lanza after PVR scan. Review of Systems Review of Systems: ROS unobtainable: Yes other (Patient is on BiPAP) Exam Narrative: Patient is sitting in bed on BiPAP Const: General: comfortable, no acute distress, well developed, alert, awake and average body habitus Nutritional Appearance: average body habitus Orientation/consciousness: patient oriented x3 Other: On BiPAP HENMT: Head: normal to inspection, normocephalic and atraumatic Ears: hearing grossly normal bilaterally Face/Nose/Sinus: normal facial exam Face and sinus: normal facial exam Eyes: General: appearance normal, both eyes and all related structures Pupils: Equal, round and reactive pupils present EOM: EOMs intact bilaterally Neck: Neck: full ROM, no lymphadenopathy and no JVD Thyroid: thyroid normal Lymphatic: no lymphadenopathy noted Resp: Effort & Inspection: normal respiratory effort and able to speak in complete sentences Auscultation: wheezes and diminished lung sounds Cardio: Jugular venous distension: no JVD Rate: regular rate Rhythm: regular rhythm Heart sounds: S1 normal heart sound present, S2 normal heart sound present and Murmur heart sound present : General: Yes deferred Skin: Rashes: no rashes Wounds: no wounds Neuro: General: patient oriented x3, CN's II-XI intact bilaterally and Unable to assess gait Cranial nerves: Yes CN's II-XII intact bilaterally and Yes Equal, round and reactive pupils present Cognition (Neuro): normal cognition Speech: normal speech Gait exam (Neuro): Unable to assess gait Motor exam (neuro): 5/5 motor strength present throughout Extrem: General: normal to inspection, full ROM, no joint enlargement and no pedal edema Objective Data Vital Signs Vital Signs: Vital Signs - 24 hr 03/17/24 17:30 03/17/24 18:00 03/17/24 19:45 Temperature 98.1 F Pulse Rate 84 81 Respiratory Rate 20 Blood Pressure 108/47 L Pulse Oximetry 94 93 Oxygen Delivery Nasal Cannula Oxygen Flow Rate 5 03/17/24 20:00 03/17/24 20:00 03/17/24 20:42 Temperature Pulse Rate 85 63 Respiratory Rate 16 Blood Pressure Pulse Oximetry 93 Oxygen Delivery Nasal Cannula Oxygen Flow Rate 5 03/17/24 20:43 03/17/24 22:00 03/17/24 22:32 Temperature Pulse Rate 82 73 Respiratory Rate Blood Pressure Pulse Oximetry 93 94 Oxygen Delivery High Flow Nasal Cannula Nasal Cannula Oxygen Flow Rate 5 4 03/17/24 23:50 03/18/24 00:00 03/18/24 02:00 Temperature 97.4 F L Pulse Rate 72 75 69 Respiratory Rate 20 Blood Pressure 130/52 L Pulse Oximetry 97 Oxygen Delivery Oxygen Flow Rate 03/18/24 03:27 03/18/24 04:00 03/18/24 04:00 Temperature 98.0 F Pulse Rate 71 71 73 Respiratory Rate 16 20 Blood Pressure 128/51 L Pulse Oximetry 93 97 Oxygen Delivery Nasal Cannula Oxygen Flow Rate 3 03/18/24 04:00 03/18/24 06:00 03/18/24 07:30 Temperature Pulse Rate 72 69 Respiratory Rate Blood Pressure Pulse Oximetry 92 Oxygen Delivery High Flow Nasal Cannula Oxygen Flow Rate 6 03/18/24 07:49 03/18/24 08:00 03/18/24 08:04 Temperature 98.3 F Pulse Rate 71 88 73 Respiratory Rate 16 16 Blood Pressure 129/64 Pulse Oximetry 93 Oxygen Delivery Oxygen Flow Rate 03/18/24 09:20 03/18/24 10:00 03/18/24 11:45 Temperature 97.8 F Pulse Rate 85 81 Respiratory Rate 20 Blood Pressure 142/61 H Pulse Oximetry 92 95 Oxygen Delivery High Flow Nasal Cannula Oxygen Flow Rate 4 03/18/24 12:00 03/18/24 12:00 03/18/24 15:42 Temperature 99 F Pulse Rate 82 80 Respiratory Rate 18 Blood Pressure 135/60 Pulse Oximetry 91 99 Oxygen Delivery High Flow Therapy with Na Oxygen Flow Rate 5 Intake/Output Intake/Output: Intake & Output 03/15/24 03/16/24 03/17/24 03/18/24 23:59 23:59 23:59 23:59 Intake Total 1220 1420 2410 2070 Output Total 013 213 6530 1175 Balance 394 670 810 895 Meds/Results Medications: Active Medications Generic Name Dose Route Start Last Admin Trade Name Freq PRN Reason Stop Dose Admin Acetaminophen 1,000 mg 03/12/24 09:00 03/18/24 09:08 Acetaminophen 500 Mg Tablet PO 1,000 mg Q12HR GIA Administration Anastrozole 1 mg 03/12/24 09:00 03/18/24 09:07 Anastrozole (*Chemo) 1 Mg Tablet PO 1 mg DAILY GIA Administration Cholestyramine Resin 4 gm 03/12/24 01:09 Cholestyramine Light 4 Gm Powd.Pack PO TIDWM PRN IBS Duloxetine HCl 30 mg 03/12/24 09:00 03/18/24 09:08 Duloxetine Hcl 30 Mg Capsule.Dr PO 30 mg DAILY GIA Administration Ferrous Sulfate 650 mg 03/15/24 12:00 03/18/24 11:58 Ferrous Sulfate [address] BY MOUTH 650 mg DAILY@1200 GIA Administration Fluticasone/Umeclidinium/Vilanterol 1 puff 03/12/24 08:00 03/18/24 08:07 Fluticasone/Umeclidin/Vilanter 100-62.5-25 Mcg Ellipta INHALATION 1 puff DAILYRT GIA Administration Folic Acid 1 mg 03/12/24 09:00 03/18/24 09:07 Folic Acid 1 Mg Tablet PO 1 mg DAILY GIA Administration Pregabalin 150 mg 03/12/24 09:00 03/18/24 09:08 Pregabalin (*Crx) 75 Mg Capsule PO 150 mg DAILY GIA Administration Quetiapine Fumarate 25 mg 03/12/24 21:00 03/17/24 21:33 Quetiapine Fumarate 25 Mg Tablet PO 25 mg QHS GIA Administration Solifenacin 5 mg 03/19/24 09:00 Solifenacin 5 Mg Tablet PO QAM [facility] Radiology Results: ITS Impressions Chest X-Ray 03/11/24 15:57 IMPRESSION: Right apical lung mass left-sided pleural effusion, as detailed Chest CTA 03/11/24 18:01 IMPRESSION: 1. No pulmonary embolus. 2. Pulmonary nodules with worsening from 01/16/2024, consistent with metastatic disease. 3. Bone lesion in L1, stable from 01/18/23, suspicious for metastatic disease. 4. Mild emphysema. Chest Ultrasound 03/11/24 18:01 IMPRESSION: 1. No left-sided pleural effusion. Labs Labs: Laboratory Results - last 24 hr 03/18/24 03:53 WBC 9.9 RBC 2.76 L Hgb 8.6 L Hct 28.7 L MCV 104.0 H MCH 31.2 MCHC 30.0 L RDW 14.1 Plt Count 211 MPV 9.9 Sodium 140 Potassium 4.1 Chloride 100 Carbon Dioxide 36 H Anion Gap 4 BUN 30 H Creatinine 0.93 Estim Creat Clear Calc 41 Estimated GFR 59 Glucose 107 Calcium 10.1 Total Bilirubin 0.2 AST 19 ALT 28 Alkaline Phosphatase 97 Total Protein 5.0 L Albumin 3.0 L Hospitalist MIPS Advance Care Plan I have confirmed that the patient's Advanced Care Plan is present, code status is documented, or surrogate decision maker is listed in patient medical record.: Yes Medication Reconciliation I have utilized all available resources to obtain, update and review the patients current medications (includes all prescriptions, OTC, herbals, cannabis, and nutritional supplements).: Yes
--- NOTE | 2024-03-18 19:08 | P.CONONC_ITS ---
Assessment and Plan Assessment and plan (1) Breast cancer: Qualifiers: Breast location: unspecified site of breast Estrogen receptor status: p ositive Patient sex: female Laterality: left Qualified Code(s): C50.912 - Malignant neoplasm of unspecified site of left female breast; Z17.0 - Estrogen receptor positive status [ER+] Code(s): C50.919 - Malignant neoplasm of unspecified site of unspecified female breast Status: Chronic Assessment and Plan: Metastatic breast cancer is status post ultrasound-guided biopsy of the left axillary lymph node came back positive for metastatic breast cancer ER DC positive HER2/radhika negative. 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 She will continue anastrozole 1 mg daily. Ibrance has been discontinued due to poor tolerance and anemia. I will check CA 15-3 today. Imaging studies finding noted that showed mostly stable disease on the CT chest abdomen pelvis in January of 2024. She will follow-up in the office. 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 Status post SBRT treatment in August of 2019. CT scan on March 11 showed no pulmonary embolism but pulmonary nodules with worsening from January 16, 2024. Stable L1 bone lesions. I will continue to observe and repeat imaging studies and most likely PET scan as an outpatient in next 4-6 weeks for follow-up. Plan Anemia. Patient will continue Procrit injection and will receive Procrit injection in the hospital today. She is getting Procrit 27086 units on a biweekly basis. HPI Data of Consult Date/Time: 03/18/24 19:08 Requesting Physician: Leslie Manjarrez MD Primary Care Provider: Bernadette Cedillo MD Consult Narrative Narrative: May Brenda is a 78 year old female with history of non-small cell lung cancer status post SBRT treatment in August of 2019 along with history of metastatic breast cancer status post ultrasound-guided biopsy of the left axillary lymph node along with history of COPD and chronic hypoxic respiratory failure came into the hospital with generalized weakness tiredness and fatigue and shortness of breath. CT chest abdomen and pelvis done on January 15 showed stable right upper lobe pulmonary nodules with post radiation changes and stable mixed lytic and sclerotic L1 lesion. Patient has been taking anastrozole. She was last seen in the office in November of 2023. Patient is also receiving Procrit injection for anemia of chronic disease. Her last Procrit injection was on February 25. Review of Systems 2 Review of Systems: Review of system as per HPI otherwise negative [facility] Past Medical History Medical History (Updated 03/18/24 @ 14:43 by Miriam Hall APRN) Pleural effusion Chronic renal insufficiency, stage III (moderate) Pneumonia PVD (peripheral vascular disease) Colon polyp Psoriatic arthritis Dependence on continuous supplemental oxygen Other specified counseling GERD (gastroesophageal reflux disease) Tobacco abuse Lung cancer Encounter for medication management Neuropathy Anxiety Arthritis Breast cancer COPD (chronic obstructive pulmonary disease) Irritable bowel disease Surgical History Surgical History S/P lumpectomy of breast History of tonsillectomy Hx of cholecystectomy History of liver biopsy H/O cataract extraction History of appendectomy History of knee replacement History of carpal tunnel release History of lung surgery Family History Family History Mother Diabetes mellitus Family history of lung cancer Family history of malignant neoplasm of uterus Family history of psoriasis Family history of malignant neoplasm Sibling Diabetes mellitus Father Family history of chronic obstructive pulmonary disease Family history of lung cancer Hypertension Family history of cardiovascular disease Grandparent Family history of malignant neoplasm of uterus Family history of coronary artery disease Social History Social History Smoking packs per day: 0.5 Smoking cigarettes per day: 10.0 Years smoked: 50 Smoking pack-years: 25.00 Smoking status: Current every day smoker Tobacco type: cigarettes Second hand tobacco smoke exposure: Yes Smoking end date: 06/15/22 Alcohol intake: never Substance use: never Substance use type: does not use Do You Feel Safe in your Home?: Yes Lack of Transportation: No Lack of Food: Never True Current Housing: I Have Housing Concerned About Future Housing: No Difficulty Paying Gas/Electric Bills: No Difficulty Paying for Meds: No Currently Unemployed: No Education: High School Diploma/GED Difficulty w/ Childcare or Family Care: No Living arrangements: with family Occupation/Education: retired Gender identity (if verbalized by the patient): Female Spiritual care concerns: No Agree to blood products: Yes Meds Home Medications and Allergies Home Medications ?Medication ?Instructions ?Recorded ?Confirmed ?Type aspirin 81 mg tablet,delayed 81 mg PO DAILY 01/03/19 03/11/24 History release (Ian Low Dose Aspirin) kjdglqua-ysobbwo-qkxh-lutein tablet 1 tablet PO DAILY 06/04/19 03/11/24 History cholecalciferol (vitamin D3) 25 25 mcg PO DAILY 05/12/21 03/11/24 History mcg (1,000 unit) capsule vit C 250 mg-vit E 90 mg-zinc 40 1 tablet PO BID 06/30/22 03/11/24 History mg-copper 1 tq-sosxdv-pqwiqg capsule (PreserVision AREDS-2) anastrozole 1 mg tablet 1 mg PO DAILY 07/14/22 03/11/24 History ipratropium 0.5 mg-albuterol 3 mg 3 ml inhalation BID 11/09/22 03/11/24 History (2.5 mg base)/3 mL nebulization soln ascorbate calcium (vitamin C) 500 500 mg PO DAILY 12/29/22 03/11/24 History mg tablet ferrous sulfate 325 mg (65 mg 650 mg PO DAILY 12/29/22 03/11/24 History iron) tablet (FeroSul) budesonide 160 mcg-glycopyr 9 See Rx Instructions .Route 04/11/23 03/11/24 Rx mcg-formot 4.8 mcg/actuation HFA .COMPLEX #10.7 grams inhaler (Breztri Aerosphere) lisinopril 10 mg tablet 10 mg PO DAILY #90 tabs 05/19/23 03/11/24 Rx ixekizumab 80 mg/mL subcutaneous See Rx Instructions .Route 06/22/23 03/11/24 Rx auto-injector (Taltz Autoinjector) .COMPLEX #3 mL palbociclib 100 mg capsule 100 mg PO DAILY 07/18/23 03/11/24 History (Ibrance) pregabalin 150 mg capsule 150 mg PO DAILY #90 caps 09/13/23 03/11/24 Rx quetiapine 25 mg tablet 25 mg PO QHS #90 tabs 10/25/23 03/11/24 Rx paroxetine HCl 40 mg tablet 20 mg (1/2 x 40 mg) PO DAILY #90 01/22/24 03/11/24 Rx tabs folic acid 1 mg tablet 1 mg PO DAILY #90 tabs 01/26/24 03/11/24 Rx acetaminophen 500 mg tablet 1,000 mg PO BID pain 03/11/24 03/11/24 History cholestyramine-aspartame 4 gram 1 ea PO TIDWM PRN IBS 03/11/24 03/11/24 History oral powder for susp in a packet (Prevalite) duloxetine 30 mg capsule,delayed 30 mg PO DAILY #30 caps 03/18/24 Rx release Allergies Allergy/AdvReac Type Severity Reaction Status Date / Time bupropion (From Wellbutrin) Allergy Intermediate Rash Verified 03/11/24 22:19 adhesive tape Allergy Unknown BLISTERS Verified 03/11/24 22:19 Bleach (Sodium Hypochlorite) Allergy Unknown Itching Verified 03/11/24 22:19 benzocaine (From Tigan (with AdvReac Unknown Unknown Verified 03/11/24 22:19 benzocaine)) trimethobenzamide AdvReac Unknown N/V Verified 03/11/24 22:19 nickel AdvReac Itching Verified 03/11/24 22:19 Vital Signs Vital Signs - 24 hr 03/17/24 19:45 03/17/24 20:00 03/17/24 20:00 Temperature 36.7 C Pulse Rate 81 85 Respiratory Rate 20 Blood Pressure 108/47 L Pulse Oximetry 93 93 Oxygen Delivery Nasal Cannula Oxygen Flow Rate 5 03/17/24 20:42 03/17/24 20:43 03/17/24 22:00 Temperature Pulse Rate 63 82 Respiratory Rate 16 Blood Pressure Pulse Oximetry 93 Oxygen Delivery High Flow Nasal Cannula Oxygen Flow Rate 5 03/17/24 22:32 03/17/24 23:50 03/18/24 00:00 Temperature 36.3 C L Pulse Rate 73 72 75 Respiratory Rate 20 Blood Pressure 130/52 L Pulse Oximetry 94 97 Oxygen Delivery Nasal Cannula Oxygen Flow Rate 4 03/18/24 02:00 03/18/24 03:27 03/18/24 04:00 Temperature Pulse Rate 69 71 71 Respiratory Rate 16 Blood Pressure Pulse Oximetry 93 Oxygen Delivery Nasal Cannula Oxygen Flow Rate 3 03/18/24 04:00 03/18/24 04:00 03/18/24 06:00 Temperature 36.7 C Pulse Rate 73 72 69 Respiratory Rate 20 Blood Pressure 128/51 L Pulse Oximetry 97 Oxygen Delivery Oxygen Flow Rate 03/18/24 07:30 03/18/24 07:49 03/18/24 08:00 Temperature 36.8 C Pulse Rate 71 88 Respiratory Rate 16 Blood Pressure 129/64 Pulse Oximetry 92 93 Oxygen Delivery High Flow Nasal Cannula Oxygen Flow Rate 6 03/18/24 08:04 03/18/24 09:20 03/18/24 10:00 Temperature Pulse Rate 73 85 Respiratory Rate 16 Blood Pressure Pulse Oximetry 92 Oxygen Delivery High Flow Nasal Cannula Oxygen Flow Rate 4 03/18/24 11:45 03/18/24 12:00 03/18/24 12:00 Temperature 36.6 C Pulse Rate 81 82 Respiratory Rate 20 Blood Pressure 142/61 H Pulse Oximetry 95 91 Oxygen Delivery High Flow Therapy with Na Oxygen Flow Rate 5 03/18/24 14:00 03/18/24 14:00 03/18/24 15:42 Temperature 37.2 C Pulse Rate 79 80 Respiratory Rate 18 Blood Pressure 135/60 Pulse Oximetry 91 99 Oxygen Delivery High Flow Therapy with Na Oxygen Flow Rate 8 03/18/24 16:00 03/18/24 16:00 Temperature Pulse Rate 73 Respiratory Rate Blood Pressure Pulse Oximetry 92 Oxygen Delivery High Flow Therapy with Na Oxygen Flow Rate 10 Exam 2 Narrative: Lungs diminished breath sounds consistent with COPD Cardiovascular regular rate rhythm no murmurs Abdomen soft nontender nondistended Extremities no edema Results Labs 03/18/24 03:53 03/18/24 03:53 Labs: Short CBC 03/18/24 Range/Units 03:53 WBC 9.9 (4.5-10.0) K/mm3 Hgb 8.6 L (12.0-15.0) g/dL Hct 28.7 L (37.0-47.0) % Plt Count 211 (150-375) k/mm3 BMP 03/18/24 03:53 Sodium 140 Potassium 4.1 Chloride 100 Carbon Dioxide 36 H BUN 30 H Creatinine 0.93 Glucose 107 Calcium 10.1 Liver Function 03/18/24 Range/Units 03:53 Total Bilirubin 0.2 (0.2-1.3) mg/dL AST 19 (14-36) U/L ALT 28 (6-35) U/L Alkaline Phosphatase 97 (38-126) U/L Albumin 3.0 L (3.5-5.1) g/dL
[2024-03-18] MEDS: EPOETIN ALFA-EPBX 20,000 UNITS/ML VIAL 20000 UNITS SUB-Q (20:36)
[2024-03-18] MEDS: EPOETIN ALFA-EPBX 10,000 UNITS/ML VIAL 10000 UNITS SUB-Q (20:36)
[2024-03-18] MEDS: QUEtiapine FUMARATE 25 MG TABLET PO (21:09)
[2024-03-19] VITALS (23 sets, daily range): BP systolic 116–133; BP diastolic 42–55; PULSE 61–94; RESP 18–22; TEMP 36.6–37; O2SAT 86–96
[2024-03-19 06:16] LABS: Mean Corpuscular Hemoglobin 31.1 pg (26-34); Mean Corpuscular Volume 103.8 fl (80-100); Mean Platelet Volume 9.6 fl (7.4-10.4); Platelet Count Result 205 k/mm3 (150-375); Red Blood Count 2.89 M/mm3 (4.2-5.4); Red Cell Distribution Width 13.8 % (11.5-14.5); White Blood Count 10.4 K/mm3 (4.5-10.0)
[2024-03-19 06:24] LABS: Alanine Aminotransferase 30 U/L (6-35); Albumin Level 2.9 g/dL (3.5-5.1); Alkaline Phosphatase 91 U/L (38-126); Anion Gap -2 mmol/L (4-12); Aspartate Amino Transferase 18 U/L (14-36); Bilirubin,Total 0.2 mg/dL (0.2-1.3); Blood Urea Nitrogen 33 mg/dL (7-17); Calcium 9.3 mg/dL (8.4-10.2); Carbon Dioxide 39 mmol/L (22-30); Chloride 102 mmol/L (98-107); Estimated CRCL calculation 39 ml/min; Estimated Glomerular Filt Rate 55; Glucose 92 mg/dL (65-110); Potassium 4.4 mmol/L (3.4-5.0); Sodium 139 mmol/L (137-145)
[2024-03-19] MEDS: FLUTICASONE/UMECLIDIN/VILANTER 100-62.5-25 MCG ELLIPTA 1 PUFF INHALATION (07:45)
[2024-03-19] MEDS: SOLIFENACIN 5 MG TABLET PO (08:28)
[2024-03-19] MEDS: FOLIC ACID 1 MG TABLET PO (08:28)
[2024-03-19] MEDS: ANASTROZOLE (*CHEMO) 1 MG TABLET PO (08:28)
[2024-03-19] MEDS: PREGABALIN (*CRX) 75 MG CAPSULE 150 MG PO (08:28)
[2024-03-19] MEDS: DULoxetine HCL 30 MG CAPSULE.DR PO (08:28)
[2024-03-19] MEDS: ACETAMINOPHEN 500 MG TABLET 1000 MG PO (08:28)
--- NOTE | 2024-03-19 10:27 | PM.PNPUL ---
Progress Note: A&P Assessment and Plan (1) COPD (chronic obstructive pulmonary disease): Qualifiers: COPD type: unspecified COPD Qualified Code(s): J44.9 - Chronic obstructive pulmonary disease, unspecified Code(s): J44.9 - Chronic obstructive pulmonary disease, unspecified Status: Acute Assessment and Plan: Has long history of COPD, at home takes Breztri and prn albuterol. She has mild emphysema radiographically. At home on 3 L at rest, 5 L with exertion, 4 L with sleep. * 02/21/2020 PFT = FEV1 is 1.04 L after bronchodilator administration, TLC 71% mild restriction, DLCO 35%, DLCO/VA 79% She tells me that she had increased cough with wheezing, fatigue for 2-3 days prior to admission; she has been using her inhaler more frequently. She denies any recent fever, chest pain, abdominal pain. 03/17/24: Plan: Continue bronchodilator therapy and p.r.n. bronchodilators. At home on 3 L at rest, 5 L with exertion, used higher flow, today switched to nasal cannula, and is using 3 L at rest, her normal home flow. plan: Now weaned to 3 L/min at rest, will need Home O2 study in am. Has used BiPAP, AirVo and high flow cannula,. now on her home flow. tolerated PT well. She may be ready to discharge tomorrow am. Can follow up in our office in 2-3 weeks. No more smoking. She has increasing size of RUL nodules from less than 2 months ago. Will need to have oncology/ Rad onc manage as an outpatient. 03/18/24: Patient states she is breathing at her baseline. She still has a persistent cough but is close to her baseline. Currently she is on 3 L at rest with saturations 97%. White blood cell count 9.9, creatinine 0.93 off BiPAP for 36 hours. Patient tells me she will not be able to tolerate BiPAP at home. Plan: Today is day 8 of steroids and will discontinue. Will continue trelegy 100 q.day. this should provide adequate beta agonist and long-acting muscarinic antagonist and will discontinue DuoNebs Q 6. Today is day 8 of antibiotics and Levaquin has been discontinued after today's dose. I will perform overnight oximetry on 4 L tonight. 03/19/2024: Patient states she is breathing at her baseline. She denies cough, phlegm production or wheezing. White blood cell count 10.4, creatinine 0.99. Patient had an overnight oximetry on 4 L with recording duration 6 hours and 10 minutes. Average saturation 96%. Low saturation 88%. Time with saturation less than or equal to 88% was 0 minutes. Oxygen desaturation index 0. The patient required higher supplemental oxygen throughout the day yesterday. This morning after she woke up she had low saturations requiring oxygen up to 10 L. When I enter the room she had her monitor pulse oximetry on her right hand on 10 L with saturations 94%. I was able to decrease her to 6 L and her saturations were 94-95%. I placed a separate pulse oximetry on her left hand Room and decreased her to 4 L nasal cannula. The monitor pulse oximetry was reading 87-90%. Her left hand pulse oximetry was reading 93%. From a pulmonary perspective patient is ready to be discharged on these pulmonary medications: sheng 190//4.8 at 2 puffs BID Rescue albuterol 2 puffs q.4 hours p.r.n. shortness of breath or wheezing. Oxygen 4 L when she naps or sleeps Oxygen at rest and with activity per home O2 assessment which I have ordered. Smoking cessation Follow up in pulmonary clinic in 4 weeks, I informed our project controls scheduler. Discussed with Dr. Goldberg, will sign off, call with questions. (2) Acute on chronic respiratory failure with hypoxia and hypercapnia: Code(s): J96.21 - Acute and chronic respiratory failure with hypoxia; J96.22 - Acute and chronic respiratory failure with hypercapnia Status: Acute Assessment and Plan: She has chronic CO2 retention, prior blood gases show this. 06/22/2022 ABG 7.40/56/56. ABG on admission 03/11/2024 7.30/77/167 on non-rebreather mask. ABG 03/12/2024 on BiPAP 7.42/59/73. she is on oxygen at home, on admission was hypoxemic, required increase oxygen, CO2 was elevated, improved on BiPAP. She has high serum bicarbonate compensating. 03/18/24: Patient tells me today she will not be able to wear BiPAP at home she can not sleep with it. Plan: Chronic hypercarbic respiratory failure intolerant to positive airway pressure. Will not try to initiate noninvasive ventilation currently. Will try to provide adequate oxygenation with supplemental oxygen. (3) Lung cancer: Code(s): C34.90 - Malignant neoplasm of unspecified part of unspecified bronchus or lung Status: Acute Assessment and Plan: 03/11/24: She has increasing size of right upper lobe nodules, increased in size since January 20, 2024. The 1.3 cm nodule is now 1.4 cm, the 1 cm is 1.3 cm, and she has other smaller nodules. She had a partial right upper lobectomy. She has no additional plans for radiation at this point. She will need oncology evaluation for these developments, when she is over this episode and admission. Other nodules include RLL 3 mm, TRISHA 3 mm. Peripheral radiation fibrosis in lingula. No pleural effusion. 03/17/24: She has increasing size of RUL nodules from less than 2 months ago. Will need to have oncology/ Rad onc manage as an outpatient. 03/18/24: Will need to have oncology/ Rad onc manage as an outpatient. (4) Tobacco abuse: Code(s): Z72.0 - Tobacco use Status: Acute Assessment and Plan: Smoked until this admission; lives alone; has smoked 60 years, now half pack per day. 03/18/24: I have told the patient is absolutely necessary that she discontinue smoking. 03/19/24: I again reinforced to the patient that she is absolutely necessary she discontinue smoking. The son is in the room and understands the importance of this and will Help her achieve this. She feels that she can quit smoking and does not wish for any pharmacologic agents at this time. Subjective Date/time seen: 03/19/24 10:27 Interval history: 03/12/2024, new consult; May Deatherage is a 78 year old female admitted with increased shortness of breath. She was last seen in our clinic 01/09/2024; has COPD, tobacco dependence, chronic hypoxic respiratory failure on O2; 3L with rest, 5 L with exertion; non-small cell lung CA now with 2 synchronous RUL lung cancers and an oligorecurrent from breast primary lesion involving T12 spine. She had a wedge resection in the RUL. She had a chest CT 03/04/24 showing RUL nodule 14 mm. She tells me that she had increased cough with wheezing, fatigue for 2-3 days prior to admission; she has been using her inhaler more frequently. She denies any recent fever, chest pain, abdominal pain. She has not been around any sick contacts. Her wbc was normal 5.0, anemia 7.3/25% and March 12 today dropped to 6.7 and 23%. No obvious bleeding. She has acute on chronic hypercapnic hypoxemic respiratory failure initially blood gas pH 7.30 pCO2 76.8, PO2 166 H CO3 37.3 on 15 L. After BiPAP 15/5 and 40% her blood gas has normalized, see below. Her CTA does not show a pulmonary embolus. She has pulmonary nodules that are worsening compared to January 16, 2024 consistent with metastatic disease and a stable bone lesion in L1. PMH: 1) non small cell lung CA RUL, s/p SBRT therapy July 2022 for RUL lung cancer, SBRT 09/2023-10/2023 for 2 RUL nodules and breast primary lesion involving T12 spine. history of RUL wedge resection, follows Dr. Michaud. 2) history of breast cancer 2006 s/p lumpectomy. 3) Rheumatoid arthritis on Taltz, sees Dr. Greer. 03/14/24; Feels better, less short of breath. She likes the Airvo, however the O2 level is staying at 40-45% and 35 L/min. Not able to wean. She wore BiPAP for a few hours today. 03/15/24; Remains improved compared to admission, still on Airvo as this is more comfortable. She tells me that she used BiPAP last night, lower settings, 12/7, for several hours if she is remembering correctly. Sat is 93-94% on 35 L/min and 40%. Airvo is easier to wean than nasal cannula O2. Even though the flow and FiO2 are high, it can be dropped quickly in the next day to try to wean and get her ready for discharge. K+ is high today, 5.5. See labs below, DATA. BUN and creat elevated, HCO3 37. 2/03/09; No major events overnight. She was up in a chair today, now in bed She is on AirVo, needs to transition to 15 high flow cannula and wean quickly. On 35 L min and 40%, saturation is 95%. She fells close to her baseline, we are talking about discharge. 03/17/24; Better, up in a chair now, had physical therapy, O2 flow is lower. She is on a regular nasal cannula at 3 L/min at rest, same that she used at home. 03/18/24: Patient states she is breathing at her baseline. She still has a persistent cough but is close to her baseline. Currently she is on 3 L at rest with saturations 97%. White blood cell count 9.9, creatinine 0.93 off BiPAP for 36 hours. Patient tells me she will not be able to tolerate BiPAP at home. 03/19/2024: Patient states she is breathing at her baseline. She denies cough, phlegm production or wheezing. White blood cell count 10.4, creatinine 0.99. Patient had an overnight oximetry on 4 L with recording duration 6 hours and 10 minutes. Average saturation 96%. Low saturation 88%. Time with saturation less than or equal to 88% was 0 minutes. Oxygen desaturation index 0. The patient required higher supplemental oxygen throughout the day yesterday. This morning after she woke up she had low saturations requiring oxygen up to 10 L. When I enter the room she had her monitor pulse oximetry on her right hand on 10 L with saturations 94%. I was able to decrease her to 6 L and her saturations were 94-95%. I placed a separate pulse oximetry on her left hand Room and decreased her to 4 L nasal cannula. The monitor pulse oximetry was reading 87-90%. Her left hand pulse oximetry was reading 93%. DATA * Mar 15 CMP = Na 141, K+ 5.5, chloride 101, HCO3 37, BUN 42, creat 1.32, calcium 10.5. Renal function reflects diuresis. More metabolic alkalosis. We did not have an ABG today however it likely will show elevated pCO2 compensating for metabolic alkalosis. * Mar 11 all serology negative flu A/B, RSV COVID * AFSHIN 02/27/2018 AFSHIN 1:320 nucleolar pattern * Mar 11 = wbc 5, H/H 7.3, 25%, plt 220 Mar 12 = 6.8, H/H 6.7/ 23%, 195 K * ABGs ; she has adequate oxygenation, her initial hypercapnia has improved and no longer requires the BiPAP 15/5 which is a really high a difference between the inspiratory and expiratory pressure. I am going to try Airvo to oxygenate and it does have a small amount of PEEP. 06/22///// pH 7.3977.307.41 pCO2 55.776.858.6 pO2 56 37925 HCO3 33.537.336.9 Sat 88.6%98%94.5% Hbg 10.3 g7.5 g7.3 g O2 3 L15 LBiPAP 40% * Chest CTA 03/11/24 = There is mild elevation of left hemidiaphragm. There are changes of wedge resection in right lung upper lobe. There is a 13 mm nodule in right upper lobe. There is a 14 mm nodule in right upper lobe. There is a 10 mm nodule in right lower lobe. There is a 5 mm nodule in left upper lobe. There is a 18 mm nodule in lingula. There is mild atelectasis bilaterally. No pleural effusion. The heart size is normal. No pericardial effusion. There is no pulmonary embolus. There is a 4.1 cm cyst in the spleen. There is a 3.7 cm cyst in left kidney. There are old fractures multiple left rib fractures. There is severe cervical and thoracic spondylosis. There is a mixed lytic and sclerotic lesion in L1 vertebral body. IMPRESSION: 1. No pulmonary embolus. 2. Pulmonary nodules with worsening from 01/16/2024, consistent with metastatic disease. 3. Bone lesion in L1, stable from 01/18/23, suspicious for metastatic disease. 4. Mild emphysema. 02/21/2020 PFT = FEV1 is 1.04 L after bronchodilator administration, TLC 71% mild restriction, DLCO 35%, DLCO/VA 79% after bronchodilator FVC 1.56 L 67% +15%, 1.79 L, 77% FEV1 0.94 L 58% +10%, 1.04 L, 64% FEV1/FVC 60% [id number]% 0.35 L 17% TLC 2.82 L 71% RV 1.26 L 78% ERV RV/TLC 45% DLCO 6.6, 35% DLCO/VA 2.81, 79% Review of Systems Review of Systems: Stable weight No hemoptysis or pleuritic chest discomfort All systems reviewed & are unremarkable except as noted in HPI and below Constitutional: Constitutional: Reports no additional constitutional complaints Eyes: Eyes: Reports no additional eye complaints ENT: Reports system reviewed and no additional complaints, except as documented Cardiovascular: Cardiovascular: Reports no additional cardiovascular complaints Respiratory: Respiratory: Reports no additional respiratory complaints Gastrointestinal: Gastrointestinal: Reports no additional gastrointestinal complaints Musculoskeletal: Musculoskeletal: Reports no additional musculoskeletal complaints Neurologic: Reports system reviewed and no additional complaints, except as documented Psychiatric: Psychiatric: Reports no additional psychiatric complaints Endocrine: Endocrine: Reports no additional endocrine complaints Hematologic/Lymphatic: Hematologic/Lymphatic: Reports no additional hematologic/lymphatic complaints Allergic/Immunologic: Allergic/Immunologic: Reports no additional allergic/immunologic complaints Exam Const: General: cooperative, healthy appearing and comfortable Orientation/consciousness: oriented to person, oriented to place and oriented to time HENMT: Head: normal to inspection Ears: hearing grossly normal bilaterally Eyes: General: appearance normal, both eyes and all related structures Neck: Neck: normal visual inspection Chest: Chest palpation & inspection: normal inspection of the chest Resp: Effort & Inspection: normal respiratory effort and able to speak in complete sentences Auscultation: no crackles, no rales, no rhonchi, no wheezes and lung sounds not diminished Cardio: Jugular venous distension: no JVD GI: Inspection: normal to inspection Skin: General skin exam: normal color Neuro: General: oriented to person, oriented to place and oriented to time Extrem: General: normal to inspection Psych: Appearance: grossly normal Objective Data Vital Signs Vital Signs: Vital Signs - 24 hr 03/18/24 11:45 03/18/24 12:00 03/18/24 12:00 Temperature 36.6 C Pulse Rate 81 82 Respiratory Rate 20 Blood Pressure 142/61 H Pulse Oximetry 95 91 Oxygen Delivery High Flow Therapy with Na Oxygen Flow Rate 5 03/18/24 14:00 03/18/24 14:00 03/18/24 15:42 Temperature 37.2 C Pulse Rate 79 80 Respiratory Rate 18 Blood Pressure 135/60 Pulse Oximetry 91 99 Oxygen Delivery High Flow Therapy with Na Oxygen Flow Rate 8 03/18/24 16:00 03/18/24 16:00 03/18/24 20:00 Temperature Pulse Rate 73 Respiratory Rate Blood Pressure Pulse Oximetry 92 97 Oxygen Delivery High Flow Therapy with Na High Flow Therapy with Na Oxygen Flow Rate 10 10 03/18/24 20:00 03/18/24 20:17 03/18/24 22:00 Temperature 37.1 C Pulse Rate 71 81 74 Respiratory Rate 18 Blood Pressure 116/69 Pulse Oximetry 93 Oxygen Delivery Oxygen Flow Rate 03/18/24 22:25 03/18/24 23:44 03/18/24 23:55 Temperature 37.0 C Pulse Rate 69 Respiratory Rate 18 Blood Pressure 112/41 L Pulse Oximetry 97 95 95 Oxygen Delivery High Flow Nasal Cannula High Flow Therapy with Na Oxygen Flow Rate 7 4 03/19/24 00:00 03/19/24 02:00 03/19/24 03:51 Temperature Pulse Rate 66 78 Respiratory Rate Blood Pressure Pulse Oximetry 96 Oxygen Delivery High Flow Therapy with Na Oxygen Flow Rate 4 03/19/24 04:00 03/19/24 04:14 03/19/24 06:00 Temperature 37.0 C Pulse Rate 61 71 68 Respiratory Rate 18 Blood Pressure 116/42 L Pulse Oximetry 96 Oxygen Delivery Oxygen Flow Rate 03/19/24 07:45 03/19/24 07:50 Temperature 36.6 C Pulse Rate 76 Respiratory Rate 20 Blood Pressure 133/55 L Pulse Oximetry 94 90 Oxygen Delivery High Flow Nasal Cannula Oxygen Flow Rate 4 Intake/Output Intake/Output: Intake & Output 03/16/24 03/17/24 03/18/24 03/19/24 23:59 23:59 23:59 23:59 Intake Total 1420 2410 2070 690 Output Total 750 1600 1175 1150 Balance 670 810 895 -460 Meds/Results Medications: Active Medications Generic Name Dose Route Start Last Admin Trade Name Freq PRN Reason Stop Dose Admin Acetaminophen 1,000 mg 03/12/24 09:00 03/19/24 08:28 Acetaminophen 500 Mg Tablet PO 1,000 mg Q12HR GIA Administration Anastrozole 1 mg 03/12/24 09:00 03/19/24 08:28 Anastrozole (*Chemo) 1 Mg Tablet PO 1 mg DAILY GIA Administration Cholestyramine Resin 4 gm 03/12/24 01:09 Cholestyramine Light 4 Gm Powd.Pack PO TIDWM PRN IBS Duloxetine HCl 30 mg 03/12/24 09:00 03/19/24 08:28 Duloxetine Hcl 30 Mg Capsule.Dr PO 30 mg DAILY GIA Administration Ferrous Sulfate 650 mg 03/15/24 12:00 03/18/24 11:58 Ferrous Sulfate [address] BY MOUTH 650 mg DAILY@1200 GIA Administration Fluticasone/Umeclidinium/Vilanterol 1 puff 03/12/24 08:00 03/19/24 07:45 Fluticasone/Umeclidin/Vilanter 100-62.5-25 Mcg Ellipta INHALATION 1 puff DAILYRT GIA Administration Folic Acid 1 mg 03/12/24 09:00 03/19/24 08:28 Folic Acid 1 Mg Tablet PO 1 mg DAILY GIA Administration Pregabalin 150 mg 03/12/24 09:00 03/19/24 08:28 Pregabalin (*Crx) 75 Mg Capsule PO 150 mg DAILY GIA Administration Quetiapine Fumarate 25 mg 03/12/24 21:00 03/18/24 21:09 Quetiapine Fumarate 25 Mg Tablet PO 25 mg QHS GIA Administration Solifenacin 5 mg 03/19/24 09:00 03/19/24 08:28 Solifenacin 5 Mg Tablet PO 5 mg QAM GIA Administration Radiology Results: ITS Impressions Chest X-Ray 03/11/24 15:57 IMPRESSION: Right apical lung mass left-sided pleural effusion, as detailed Chest CTA 03/11/24 18:01 IMPRESSION: 1. No pulmonary embolus. 2. Pulmonary nodules with worsening from 01/16/2024, consistent with metastatic disease. 3. Bone lesion in L1, stable from 01/18/23, suspicious for metastatic disease. 4. Mild emphysema. Chest Ultrasound 03/11/24 18:01 IMPRESSION: 1. No left-sided pleural effusion. Labs Labs: Laboratory Results - last 24 hr 03/19/24 06:03 WBC 10.4 H RBC 2.89 L Hgb 9.0 L Hct 30.0 L MCV 103.8 H MCH 31.1 MCHC 30.0 L RDW 13.8 Plt Count 205 MPV 9.6 Sodium 139 Potassium 4.4 Chloride 102 Carbon Dioxide 39 H Anion Gap -2 L BUN 33 H Creatinine 0.99 Estim Creat Clear Calc 39 Estimated GFR 55 L Glucose 92 Calcium 9.3 Total Bilirubin 0.2 AST 18 ALT 30 Alkaline Phosphatase 91 Total Protein 5.0 L Albumin 2.9 L
[2024-03-19] MEDS: FERROUS SULFATE 325 MG TABLET DR 650 MG BY MOUTH (11:47)
--- NOTE | 2024-03-19 14:05 | PM.DS ---
DS: Admitting Diagnosis Discharge Date 03/19/24 Admitting Diagnosis Shortness of breath DS: Discharge Diagnosis Discharge Diagnosis (1) COPD exacerbation: Code(s): J44.1 - Chronic obstructive pulmonary disease with (acute) exacerbation Status: Acute (2) Acute on chronic respiratory failure with hypoxia and hypercapnia: Code(s): J96.21 - Acute and chronic respiratory failure with hypoxia; J96.22 - Acute and chronic respiratory failure with hypercapnia Status: Acute DS: Summary Hospital Course Hospital Course: This is a 78-year-old female with past medical history significant for COPD, tobacco dependence, chronic hypoxic respiratory failure, breast and lung CA. Patient was brought to the emergency room due to worsening shortness of breath, low pulse oxygenation at home. History has been obtained upon reviewing medical records and from son who is at bedside. Patient required BiPAP initially. CTA chest showed pulmonary nodule consistent with metastatic disease with bone lesion in L1 also consistent with mets. patient was managed with bronchodilators and steroid, she is now on 4 liters which is above her 3 liters baseline oxygen. however it appears this is her new baseline. Pulmonology was consulted and he followed patient. Strongly recommended for patient to quick smoking. Oncology was consulted however patient is already following oncology and they will continue follow up outpatient F/u with PCP in 3-5 days, f/u with Oncology and pulmonology instructed Time Spent with Patient Time attestation: Total time spent providing and/or coordinating discharge services: DS: Data Data Completed and Pending Labs on day of discharge: Labs from last 24 hours 03/19/24 06:03 WBC 10.4 H RBC 2.89 L Hgb 9.0 L Hct 30.0 L MCV 103.8 H MCH 31.1 MCHC 30.0 L RDW 13.8 Plt Count 205 MPV 9.6 Sodium 139 Potassium 4.4 Chloride 102 Carbon Dioxide 39 H Anion Gap -2 L BUN 33 H Creatinine 0.99 Estim Creat Clear Calc 39 Estimated GFR 55 L Glucose 92 Calcium 9.3 Total Bilirubin 0.2 AST 18 ALT 30 Alkaline Phosphatase 91 Total Protein 5.0 L Albumin 2.9 L Discharge Plan Discharge Attending physician on discharge: Shantel Goldberg Consulting providers: Mia Vaz; Gilberto Govea; David Michaud Discharging Clinician: Nnanna,Onyema Anticipated Discharge Date/Time: 03/19/24 14:00 Patient Disposition: Home Health Service Activity: as tolerated Diet: as tolerated Discharge Instructions: Per Care Coordination: [facility] will follow at discharge. [facility] will contact you prior to their first visit. [facility] will follow for RN and PT/OT eval and treat. [facility] can be contacted at [phone]. Patient Instructions: Antibiotic Form, Pain Management (GEN) Patient Language: French Stand Alone Forms: General Discharge Information Follow-up/Referrals: David Michaud MD [Physician] - (F/u with oncology as instructed ) Bernadette Cedillo MD [Primary Care Provider] - (F/u wiht PCP in 3-5 days ) Gilberto Govea MD [Physician] - (F/u with Urology as instructed ) Mia Vaz MD [Physician] - (F/u with pulm as instructed ) Discharge Medications: New solifenacin [Vesicare] 5 mg Tablet 5 mg PO QAM 30 Days Qty: 30 1RF prednisone 10 mg tablet 10 mg PO DIRECTED Qty: 20 0RF Rx Instructions: see taper instructions doxycycline hyclate 100 mg tablet 100 mg PO BID 5 Days Qty: 10 0RF Continued aspirin [Ian Low Dose Aspirin] 81 mg Tablet,Delayed Release (Dr/Ec) 81 mg PO DAILY Patient Comments: . PreserVision AREDS-2 250-90-40-1 mg capsule 1 tablet PO BID cwxzvoni-tiflunm-jexh-lutein Tablet 1 tablet PO DAILY cholecalciferol (vitamin D3) 25 mcg (1,000 unit) capsule 25 mcg PO DAILY anastrozole 1 mg tablet 1 mg PO DAILY Patient Comments: . ferrous sulfate [FeroSul] 325 mg (65 mg iron) tablet 650 mg PO DAILY ascorbate calcium (vitamin C) 500 mg tablet 500 mg PO DAILY Patient Comments: . Taltz Autoinjector 80 mg/mL auto-injector See Rx Instructions .ROUTE .COMPLEX Qty: 3 4RF Dose Instruction: INJECT 80MG (1 PEN) UNDER THE SKIN EVERY 4 WEEKS Rx Instructions: INJECT 80MG (1 PEN) UNDER THE SKIN EVERY 4 WEEKS Ibrance 100 mg capsule 100 mg PO DAILY Rx Instructions: administer on days 1 through 21 of a 28-day treatment cycle ipratropium-albuterol [DuoNeb] 0.5 mg-3 mg(2.5 mg base)/3 mL Solution For Nebulization 3 ml INHALATION BID acetaminophen 500 mg tablet 1,000 mg PO BID cholestyramine-aspartame [Prevalite] 4 gram powder in packet 1 ea PO TIDWM PRN (Reason: IBS) Karissa Aerosphere 160-9-4.8 mcg/actuation HFA aerosol inhaler See Rx Instructions .ROUTE .COMPLEX Qty: 10.7 5RF Dose Instruction: INHALE 2 BREATHS EVERY MORNING AND EVENING; RINSE AND SPIT, USE WITH A SPACER Rx Instructions: INHALE 2 BREATHS EVERY MORNING AND EVENING; RINSE AND SPIT, USE WITH A SPACER lisinopril 10 mg tablet 10 mg PO DAILY Qty: 90 2RF pregabalin 150 mg capsule 150 mg PO DAILY Qty: 90 3RF quetiapine 25 mg tablet 25 mg PO QHS Qty: 90 1RF paroxetine HCl 40 mg tablet 20 mg PO DAILY Qty: 90 1RF folic acid 1 mg tablet 1 mg PO DAILY Qty: 90 1RF duloxetine 30 mg capsule,delayed release(DR/EC) 30 mg PO DAILY Qty: 30 1RF Date of admission: 03/11/24 19:44 Primary Care Provider: Bernadette Cedillo Admitting Provider: Leslie Manjarrez V. Attending physician on admission: Leslie Manjarrez V. Condition: Stable
--- NOTE | 2024-03-19 14:23 | PCPTNOTE ---
On 03/19/24, the student, NATALIA Escalona, provided care and completed [facility] documentation on this patient. I have reviewed the student's documentation and agree with the findings.
--- NOTE | 2024-03-19 15:38 | PCRCNOTE ---
HOME O2 EVAL COMPLETED, 4 L REST, 6 L ACTIVITY, 4L NOCTURNALLY. PT HAS [facility] FOR O[facility]. FAXED UPDATED EVAL AND PAPERWORK TO [facility]. SON HAS PORTABLE O2 FOR TRANSPORT HOME, PT HAS ALL REQUIRED O2 EQUIPMENT IN HOME ALREADY. SHE ONLY HAS INCREASED HER LITER FLOW.
== END 2024-03-19 18:37 | disposition home health service (06) | DRG 190 ==
LOC: ANHED 16:09 → ANHIMU 20:42
PROVIDERS: General Practice; Internal Medicine Critical Care Medicine; Registered Nurse; Admitting Provider Internal Medicine; Emergency Provider Emergency Medicine; PCP Family Medicine; Visit Provider Internal Medicine
DX: J44.1 Chronic obstructive pulmonary disease with (acute) exacerbation (principal); J96.21 Acute and chronic respiratory failure with hypoxia; J96.22 Acute and chronic respiratory failure with hypercapnia; C34.32 Malignant neoplasm of lower lobe, left bronchus or lung; J90 Pleural effusion, not elsewhere classified; C77.3 Secondary and unspecified malignant neoplasm of axilla and upper limb lymph nodes; N18.30 Chronic kidney disease, stage 3 unspecified; I73.9 Peripheral vascular disease, unspecified; K21.9 Gastro-esophageal reflux disease without esophagitis; K58.9 Irritable bowel syndrome, unspecified; L40.50 Arthropathic psoriasis, unspecified; N39.46 Mixed incontinence; G62.9 Polyneuropathy, unspecified; M19.90 Unspecified osteoarthritis, unspecified site; F17.210 Nicotine dependence, cigarettes, uncomplicated; F41.9 Anxiety disorder, unspecified; Z96.659 Presence of unspecified artificial knee joint; Z20.822 Contact with and (suspected) exposure to COVID-19; Z99.81 Dependence on supplemental oxygen; Z79.82 Long term (current) use of aspirin; Z85.3 Personal history of malignant neoplasm of breast; Z86.0101 Personal history of adenomatous and serrated colon polyps
CPT/HCPCS: 36415; 36430; 36600; 71046; 71275; 76604; 80053; 81001; 82040; 82150; 82247; 82465; 82805; 82947; 83615; 83735; 84145; 84155; 84311; 84478; 84484; 85018; 85025; 85027; 85380; 85610; 85730; 86850; 86900; 86901; 86923; 87449; 87637; 87641; 87899; 93005; 94003; 94618; 94640; 94762; 96365; 96375; 97110; 97116; 97161; 97530; 99285; A9270; J0696; J2919; J3475; J7050; J7120; J7512; P9016; Q5105; Q9967

== ENCOUNTER 2024-05-08 09:48 | Outpatient (CLI) | payer MEDICARE, OTHER, SELFPAY ==
--- NOTE | ~2024-05-08 | XR_ITS ---
XR elbow LT min 3V Ordering provider: Bernadette Cedillo MD History: . M25.522 - Pain in left elbow, medial swelling, s/p fall . Comparison: None. FINDINGS: BONES: No acute fracture or dislocation. JOINT SPACES: Osteophytes seen in the ulnar articular margins suggestive of mild osteoarthritic del cid es. SOFT TISSUES: Normal. No definite joint effusion. IMPRESSION: No acute osseous abnormality left elbow. Mild osteoarthritic changes. Reviewed, dictated and finalized at location A.
--- OUTSIDE RECORDS SUMMARY | 2024-05-08 11:01 | XMS_ITS | Encounter Summary ---
Author Organization [facility] Address [address] [place] [address] Care Team Providers Care Director Medical Surgical Name Role Phone Bernadette Cedillo MD Primary Care Provider [phone] Encounter Details Date Type Department Care Team (Late st Contact Info) Description 11/14/2022 Lab Requisition [facility] - Pathology Lab [address] [place] [address] Rocco Roblero MD [address] [address] Illness, unspecified Social History Tobacco [...] unspecified documented in this encounter Care Teams Director Medical Surgical Relationship Specialty Start Date End Date Bernadette Cedillo MD [address] [place] [address] PCP - General 06/22/21 documented as of this encounter
--- OUTSIDE RECORDS SUMMARY | 2024-05-08 11:01 | XMS_ITS | Clinical Summary ---
Author Organization [facility] Peter Blueberry Address [address] [address] [place] [address] Care Team Providers Care Tunnel Inspector Name Role Phone Bernadette Cedillo MD Primary Care Provider [phone] Source Comments [facility]berry,non-owned Affiliates and Associated Physician Practices is amultiple site organization consisting of ambulatory clinics and hospital sitesin [place], [place], [place] and [place]. This disclosure is being madepursuant to the Care Everywhere program and may not contain all information available regarding this patient. Last updated 17.[facility] Blueberry Social History Tobacco Use Types Packs/Day Years Used Date Smoking Tobacco: Never Assessed Sex and Gender Information Value Date Recorded Sex Assigned at Not on file Gender Identity Not on file Sexual Orientation Not on file Plan of Treatment Health Maintenance Due Date Last Done Comments BONE DENSITY TESTING 1945 MEDICARE AWV 12 MONTHS 1945 HEPATITIS C SCREENING 08/31/1965 DTAP/TDAP/TD VACCINES (1 - Tdap) 09/04/1966 PNEUMOCOCCAL VACCINE 50+ (1 of 1 - PCV) 09/04/1997 ZOSTER VACCINE (1 of 2) 09/04/1997 Respiratory Syncytial Virus (RSV) Vaccine Pt: or over 60 yrs (1 - 1-dose 75+ series) 09/04/2022 COVID-19 VACCINE ( - 2023-2 5 season) 2023 INFLUENZA VACCINE [...] to complete this topic MENINGOCOCCAL (Group B) VACC INE SHARED DECISION-MAKING Aged Out No longer eligibl e based on patient's age to complete this topic MENINGOCOCCAL GROUPS A/C/Y/W VACCINE Aged Out No longer eligible b ased on patient's age to complete this topic Care Teams Tunnel Inspector Relationship Specialty Start Date End Date Bernadette Cedillo MD [address] [place] [address] PCP - General 06/22/21
--- OUTSIDE RECORDS SUMMARY | 2024-05-08 11:02 | XMS_ITS | Encounter Summary ---
Author Organization [facility] Address [address] [place] [address] Care Team Providers Care Trapeze Artist Name Role Phone Bernadette Cedillo MD Primary Care Provider [phone] Encounter Details Date Type Department Care Team (Late Contact Info) Description 05/06/2024 Orders Only [facility] Oncology and Hematology - [address] [place] [address] David Michaud MD [address] [place], [place] [address]SEAT [address] [place] [address] Malignant 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, estrogen receptor positive (CMS/HCC) Social History Tobacco Use Types Packs/Day Years Used Date Smoking Tobacco: Every Day Cigarettes 1 55 Smokeless Tobacco: Never Alcohol Use Standard Drinks/Week Comments No 0 (1 standard drink = 0.6 oz pur e alcohol) Comments No Sex and Gender Information Value Date Recorded Sex Assigned at Not on file 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 Gender Identity Not on file Sexual Orientation Not on file documented as of this encounter Plan of Treatment Upcoming Encounters Date Type Department Care Team (Late Contact Info) Description 07/02/2024 8:30 AM CDT Office Visit [facility] Oncology and Hematology - [address] [place] [address] David Michaud MD [address] [place] [address] documented as of this encounter Visit Diagnoses Diagnosis Malignant 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, estrogen receptor positive (CMS/HCC) documented in this encounter Care Teams Trapeze Artist Relationship Specialty Start Date End Date Bernadette Cedillo MD [address] [place] [address] PCP - General Family Practice 06/30/22 documented as of this encounter
--- OUTSIDE RECORDS SUMMARY | 2024-05-08 11:02 | XMS_ITS | Clinical Summary ---
Author Organization [facility] Address [address] [place] [address] Care Team Providers Care Nurse Emergency Name Role Phone Kennedi Salcedo MD Primary Care Provider [phone] Bernadette Cedillo MD Unavailable David Michaud MD Unavailable [phone] Allergies Active Allergy Reactions Criticality Noted [...] Date Diagnosed Date Acute respiratory failure ([facility]) 02/13 Non-small cell cancer of left lung ([facility]) 07/12/2019 Other osteoporosis without current pathological fracture 02/18/2019 Malignant neoplasm of overla pping 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, estrogen receptor positive ([facility]) 03/12/2018 Social History Tobacco Use [...] often do you attend chur ch or sikhism services? 1 to 4 times per year 02/23/2020 Do you belong to any clubs o r organizations such as rastafari groups, unions, fraternal or athletic groups, or [...] and heating? Not hard at all 02/23/2020 [facility] - Occupational Stress [...] Sex Assigned at Female 02/23/2020 11:09 PM BALL ENDER Legal Sex Female 5:19 PM CDT Gender Identity Female 02/23/2020 11:09 PM BALL ENDER Sexual Orientation Straight 02/23/2020 11 :09 PM BALL ENDER Last Filed Vital Signs Vital Sign Reading Time Taken Comments Blood Pressure 101/59 11/21/2023 10:30 PM CDT Pulse 83 11/21/2023 10:30 PM CDT Temperature 35.8 C (96.5 F) 11/21/2023 10:30 PM CDT Respiratory Rate 17 11/21/2023 10:30 PM CDT [...] VE NON-REACTI VE 10/19/2016 6:25 PM CDT [facility] Comment: TESTING PERFORMED [facility] [place] [address] SERUM OR PLASMA SPECIMEN / Unknown 10/19/2016 9:12 AM CDT 10/19/2016 9:22 AM CDT us Generic Conversion Md [facility] Final R esult [facility] [address] [place] [address], [place] [phone] from Last 3 Months or Most Recently Relevant to Health Maintenance Insurance [employer]RO[employer] MEDICARE [facility] Advance Directives Documents on File Type Date Recorded Patient Hat Blocker Expl anation Advance Directives and Living Will 11/22/2023 9:16 AM 06/14/2021 POA FOR HEALTH CARE * Full Code (Latest Code Status on File) Date Activated Date Inactivated Comments 02/23/2020 10:56 PM 02/25/2020 8:21 PM Care Teams Nurse Emergency Relationship Specialty Start Date End Date Kennedi Salcedo MD PCP - General FAMILY PRACTICE 02/23/20 Bernadette Cedillo MD [address] [place] [address] [place] [address] FAMILY PRACTICE 11/21/23 David Michaud MD [address] [facility] [address] [place] [address] HEMATOLOGY/ONCOLOGY 11/21/23
--- OUTSIDE RECORDS SUMMARY | 2024-05-08 11:02 | XMS_ITS | Clinical Summary ---
Author Organization [facility] [place] [place] Address [address] [place] [address] Care Team Providers Care Traffic Or System Dispatcher Name Role Phone Bernadette Cedillo MD Primary Care Provider [phone] Allergies Active Allergy Reactions Criticality Noted Date [...] MOUTH DAILY 90 Tablet 3 4 Active DULoxetine (CYMBALTA) 30 mg Capsule, Delayed Release(E.C.) Take 1 Capsule by mouth daily. 5 Active solifenacin (VESICARE) 5 mg Tablet Take 5 mg by mouth daily in the morning. 5 Active Active Problems Problem Noted Date Diagnosed Date Chronic anemia 05/05/2021 Non-small cell cancer of left lung 07/12/2019 Other osteoporosis without current pathological fracture 02/18/2019 Malignant neoplasm of overla pping 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, estrogen receptor positive 03/12/2018 Resolved Problems Problem Noted Date Diagnosed Date Resolved Date Lung nodules 01/22/2019 07/12/2019 Encounters Date Type Department Care Team Description 05/06/2024 Orders Only [facility] Oncology and Hematology - [address] [place] [id number] David Michaud MD Malignant 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, estrogen receptor positive (CMS/HCC) 04/22/2024 Orders Only [facility] Oncology and Hematology - [address] [place] [address] David Michaud MD Malignant 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, estrogen receptor positive (CMS/HCC) 04/16/2024 Orders Only [facility] Oncology and Hematology - [address] [place] [address] David Michaud MD 04/08/2024 Orders Only [facility] Oncology and Hematology - [address] [place] [address] David Michaud MD Malignant 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, estrogen receptor positive (CMS/HCC) 04/04/2024 8:30 AM DRYER FEEDER Office Visit [facility] Oncology and Hematology - [address] [place] [address] David Michaud MD Malignant 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, estrogen receptor positive (CMS/HCC) (Primary Dx); Non-small cell cancer of left lung (CMS/HCC) 04/02/2024 External Device Data STL ABSTRACTION Provider, Abstract 03/25/2024 Orders Only [facility] Oncology and Hematology - [address] [place] [address] David Michaud MD Malignant 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, estrogen receptor positive (CMS/HCC) 03/05/2024 External Device Data STL ABSTRACTION Provider, Abstract 03/04/2024 Orders Only [facility] Oncology and Hematology - [address] [place] [address] David Michaud MD 02/27/2024 External Device Data STL ABSTRACTION Provider, Abstract 02/27/2024 Orders Only [facility] Oncology and Hematology - [address] [place] [address] David Michaud MD 02/26/2024 Orders Only [facility] Oncology and Hematology - [address] [place] [address] David Michaud MD Malignant 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, estrogen receptor positive (CMS/HCC) 02/21/2024 Orders Only [facility] Oncology and Hematology - [address] [place] [address] David Michaud MD 02/12/2024 Orders Only [facility] Oncology and Hematology - [address] [place] [address] David Michaud MD Malignant neoplasm [...] on file Legal Sex Female 2:13 PM DRYER FEEDER Gender Identity Not on file Sexual Orientation Not on file Last Filed Vital Signs Vital Sign Reading Time Taken Comments Blood Pressure 167/91 04/04/2024 8:48 AM DRYER FEEDER Pulse 73 04/04/2024 8:45 AM DRYER FEEDER Temperature 36.1 C (97 F) 04/04/2024 8:45 AM DRYER FEEDER Respiratory Rate 15 04/04/2024 8:45 AM DRYER FEEDER Oxygen Saturation 99% 04/04/2024 8:45 AM DRYER FEEDER Inhaled Oxygen Concentration - - Weight 71.5 kg (157 lb 9.6 oz) 04/04/2024 8:45 A M DRYER FEEDER Height 154.9 cm (5' 1 ) 07/09/2021 9:59 AM CDT Body Mass Index 29.78 07/09/2021 9:59 AM CDT Plan of Treatment Upcoming Encounters Date Type Department Care Team (Late st Contact Info) Description 07/02/2024 8:30 AM CDT Office Visit [facility] Oncology and Hematology - [address] [place] [address] David Michaud MD [address] [facility] [address] [place] [address] Health Maintenance Due Date Last Done Comments DTAP/TDAP/TD VACCINES (1 - Tdap) 09/04/1966 PNEUMOCOCCAL VACCINE 50+ YEARS (1 of 2 - PCV) 09/04/18 [...] Procedure Name Priority Date/Time Associated Diagnosis Comments CBC WITH AUTODIFFERENTIAL Routine 2024 1:22 PM DRYER FEEDER CREATININE Routine 03/04/2024 11:[address] CHEST W CONTRAST Routine 03/04/2024 1 0:06 AM DRYER FEEDER CBC WITH DIFFERENTIAL Routine 02/26/2024 12:16 PM DRYER FEEDER CBC WITH DIFFERENTIAL Routine 02/12/2024 1:48 PM DRYER FEEDER from Last 3 Months Results * CBC WITH AUTODIFFERENTIAL (04/16/2024 1:22 PM DRYER FEEDER) Blood us David Michaud MD HEMATOLOGY ORDERABLES Final Res ult * CREATININE (03/04/2024 11:12 AM DRYER FEEDER) Blood us David Michaud MD CHEMISTRY ORDERABLES Final Resu lt * CT CHEST W CONTRAST (03/04/2024 10:06 AM DRYER FEEDER) Anatomical Region Laterality Modality Chest Computed Tomogra phy us David Michaud MD CT ORDERABLES Final Result * CBC WITH DIFFERENTIAL (02/26/2024 12:16 PM DRYER FEEDER) Only the most recent of2 resultswithin the time period is included. 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
--- OUTSIDE RECORDS SUMMARY | 2024-05-08 11:02 | XMS_ITS | Clinical Summary ---
Author Organization [facility] Address [address] [place] [address] Care Team Providers Care Automotive Service Writer Name Role Phone Hernesto Joshi MD Primary Care Provider [phone] Allergies Active Allergy Reactions Criticality Noted Date [...] 1 tablet by mouth daily Active vitamins A,C,H-cucg-woshuc (ICAPS) 4,296 mcg-226 mg-90 mg capsule Take [...] on chronic respiratory failure with hypoxi a 11/22/2023 COPD exacerbation 11/22/2023 Non-small cell lung cancer 11/22/2023 HTN (hypertension) 11/22/2023 COVID 11/22/2023 Other specified anemias 11/22/2023 Surgical History Surgery Date Site/Laterality Comments APPENDECTOMY CHOLECYSTECTOMY CATARACT EXTRACTION BREAST LUMPECTOMY KNEE SURGERY CARPAL TUNNEL RELEASE Medical History Medical History Date Comments Breast cancer (HCC) Neuropathy Lung cancer (HCC) COPD (chronic obstructive pulmonary [...] Date Smoking Tobacco: Every Day Cigarettes 0.5 50.5 Started: 11/21/1973 Tobacco Cessation:Ready to Q uit: No; Counseling Given: Not Answered Comments:0.5ppd x 50 years [employer] Util[employer] Answer Date Recorded In the past 12 months has e [employer], gas, oil, or water [employer] threatened to shut off services in your [...] often do you attend chur ch or mosque services? 1 to 4 times per year 11/22/2023 Do you belong to any clubs o r organizations such as buddhism groups, unions, fraternal or athletic groups, or [...] any time in the past 12 m [facility], were you homeless or living in a detention (including now)? No 11/22/2023 Personal Safety Answer Date Recorded Have you ever been in or are you currently in a harmful physical or emotional relationship or is someone making you feel afraid or unsafe? 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 Gender Identity Female 11/22/2023 9:01 AM CDT Sexual Orientation Not on file Obstetrics History Last Filed Vital Signs Vital Sign Reading Time Taken Comments Blood Pressure 129/63 11/25/2023 11:36 AM CDT Pulse 61 11/25/2023 11:36 AM CDT Temperature 36.8 C (98.2 F) 11/25/2023 11:36 AM CDT Respiratory Rate 16 11/25/2023 11:36 AM CDT [...] 11/18/2015, 07/22/2013, Additional history exists Insurance MEDICARE [email or web address] [place] [facility]ICARE [facility] [place] Advance Directives For more information, please contact: [phone] Documents on File Type Date Recorded Patient Email Campaign Manager Expl anation ADVANCE DIRECTIVE 11/27/2023 12:53 PM Pow er of Boiler Tenders Supervisor-Medical * LIMITED - No CPR (Latest Code Status on File) Date Activated Date Inactivated Comments 11/22/2023 1:02 AM 11/25/2023 8:45 PM Care Teams Automotive Service Writer Relationship Specialty Start Date End Date Hernesto Joshi MD [address] [place] [address] PCP - General 06/22/16
--- OUTSIDE RECORDS SUMMARY | 2024-05-08 11:02 | XMS_ITS | Encounter Summary ---
Author Organization [facility] Address [address] [facility] [place] [address] Care Team Providers Care Generator Assembler Name Role Phone Bernadette Cedillo MD Primary Care Provider [phone] Encounter Details Date Type Department Care Team (Late st Contact Info) Description 11/14/2022 Lab Requisition [facility] - Pathology Lab [address] [place] [address] Rocco Roblero MD [address] [address] Illness, unspecified Social History Tobacco [...] Case Report Bone Marrow Patholog y Report Case: [id number] Authorizing Provider: Rocco Roblero MD Collected: 11/10/2022 09:00 AM Ordering Location: [facility] Pathology Lab Received: 11/14/2022 09:45 AM Pathologist: Rona Smith MD Specimens: A) - Bone Marrow Clot B) - Bone Marrow Core 11/14/2022 10:58 AM CDT [facility] Final Diagnosis Bone marrow, aspirate, clot section, and core biopsy: - Normocellular marrow with maturing trilineage hematopoiesis - Decreased storage iron - No evidence of lymphoma or high-grade myeloid neoplasm - See description. Peripheral blood smear: - Macrocytic anemia - See description 11/14/2022 10:58 AM [facility] PATHOLOGY LAB Comment Overall, the bone marrow specimen is normocellular for age with maturing trilineage hematopoiesis and no evidence of lymphoma, a high-grade myeloid neoplasm, or significant dyspoiesis. Storage iron is decreased. Correlation with clinical findings and relevant cytogenetic/molecular testing is required. 11/14/2022 10:58 AM [facility] PATHOLOGY LAB Peripheral Smear Description CBC Data: WBC - 7.9, Hgb - 8.3, MCV - 105.6, MCHC - 31, and Platelets - 172. Leukocyte number: normal. Granulocyte morphology: normal. Lymphocyte morphology: normal. Erythrocyte number: decreased. Erythrocyte morphology: macrocytic. Anisopoikilocytosis: mild. Polychromasia: mild. Platelet number: normal. Platelet morphology: normal. 11/14/2022 10:58 AM [facility] PATHOLOGY LAB Bone Marrow Aspirate Differential [...] is appropriately reactive. 11/14/2022 10:58 AM [facility] PATHOLOGY LAB Bone Marrow Core Biopsy [...] (by special stain): decreased. 11/14/2022 10:58 AM CDT [facility] Flow Cytometry Summary Concurrent flow cytometry ([id number]) shows no clonal B-cell population or increase in blasts. 11/14/2022 10:58 AM CDT [facility] Clinical History 77 year old woman with chronic anemia. 11/14/2022 10:58 AM T [facility] PATHOLOGY LAB Materials Received Received are 20 slides and 3 blocks labeled [id number] along with a copy of the outside pathology report. The materials originate from [place] [id number]. All original materials are returned to the referring institution, along with a copy of our final report. 11/14/2022 10:58 AM T [facility]Y LAB Pathologist Location at [facility] 11/14/2022 10:58 AM T [facility] PATH[facility]Y LAB Disclaimer The performance characteristics of all immunohistochemical and indirect immunofluorescence stains (if any) cited in this report were determined by the Histopathology Laboratory of [facility]. Some of these tests were developed by [...] attending (teaching) pathologist. 11/14/2022 10:58 AM CDT [facility]Y LAB Embedded Images 11/14/2022 10:58 AM CDT [facility] Pathology/Cytology BONE MARROW SPECIMEN / Unknown 11/10/2022 9:00 AM CDT 11/14/2022 9:45 AM CDT Miscellaneous samples (specimen) BONE MARROW SPECIMEN / Unknown 11/10/2022 9:00 AM CDT 11/14/2022 9:59 AM CDT Rocco Roblero MD LAB - PATHOLOGY/CYTO LOGY ORDERABLES [facility] PATHOLOGY LAB [address] [place], [place] [address] [phone] documented in this encounter Visit Diagnoses Diagnosis Illness, unspecified documented in this encounter Care Teams Generator Assembler Relationship Specialty Start Date End Date Bernadette Cedillo MD [address] [place] [address] PCP - General 06/22/21 documented as of this encounter
--- OUTSIDE RECORDS SUMMARY | 2024-05-08 11:02 | XMS_ITS | Encounter Summary ---
Author Organization [facility] Address [address] [place] [address] Care Team Providers Care Nut Sorter Name Role Phone Bernadette Cedillo MD Primary Care Provider [phone] Encounter Details Date Type Department Care Team ([facility] Contact Info) Description 06/10/2022 Abstract [facility] Oncology and Hematology - [address] [place] [address] Greg Barrow RN Social History Tobacco Use Types Packs/Day Years Used Date Smoking Tobacco: Every Day Cigarettes 1 55 Smokeless Tobacco: Never Alcohol Use Standard Drinks/Week Comments No 0 (1 standard drink = 0.6 oz pur e alcohol) Comments No Sex and Gender Information Value Date Recorded Sex Assigned at Not on file Legal Sex Female 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 No / Unsure 06/02/2022 1:16 PM CDT documented as of this encounter Plan of Treatment Upcoming Encounters Date Type Department Care Team ([facility] Contact Info) Description 07/02/2024 8:30 AM CDT Office Visit [facility] Oncology and Hematology - [address] [place] [address] David Michaud MD [address] [facility] [address] [place] [address] documented as of this encounter Visit Diagnoses Not on filedocumented in this encounter Care Teams Nut Sorter Relationship Specialty Start Date End Date Bernadette Cedillo MD [address] [place] [address] PCP - General Family Practice 06/30/22 documented as of this encounter
--- OUTSIDE RECORDS SUMMARY | 2024-05-08 11:02 | XMS_ITS | Encounter Summary ---
Author Organization [facility] Lizama Pogojo Address [address] [place] [address] Care Team Providers Care Residential Monitor Name Role Phone Bernadette Cedillo MD Primary Care Provider [phone] Encounter Details Date Type Department Care Team (Late Contact Info) Description 01/23/2023 Abstract [facility] Oncology and Hematology - [address] [place] [address] Colette Cage, STEVE Social History Tobacco Use Types Packs/Day Years Used Date Smoking Tobacco: Every Day Cigarettes 1 55 Smokeless Tobacco: Never Alcohol Use Standard Drinks/Week Comments No 0 (1 standard drink = 0.6 oz pur e alcohol) Comments No Sex and Gender Information Value Date Recorded Sex Assigned at Not on file Legal Sex Female 2:13 PM FIRE 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 Gender Identity Not on file Sexual Orientation Not on file documented as of this encounter Plan of Treatment Upcoming Encounters Date Type Department Care Team (Late st Contact Info) Description 07/02/2024 8:30 AM CDT Office Visit [facility] Oncology and Hematology - [address] [place] [address] David Michaud MD [address] [facility] [address] [place] [address] documented as of this encounter Visit Diagnoses Not on filedocumented in this encounter Care Teams Residential Monitor Relationship Specialty Start Date End Date Bernadette Cedillo MD [address] [place] [address] PCP - General Family Practice 06/30/22 documented as of this encounter
--- OUTSIDE RECORDS SUMMARY | 2024-05-08 11:02 | XMS_ITS | Continuity of Care Document ---
Author Organization [facility] Address [address] [facility] [address] [place] [address] Phone Care Team Providers Care Local Intermodal Truck Driver Name Role Phone Chevy Keith MD Unavailable [...] CATARACT SURG W/IOL, 1 STAGE OFFICE/OUTPATIENT VISIT, [facility] OPHTHALMIC BIOMETRY OPHTHALMIC BIOMETRY Advance Directives Directive Yes / No Effective Date File Name No Information Encounters Encounter Description Practice Location Reason(s) For Visit Diagnoses Date Provider Providers Copied on Encounter [facility], [address] [place] [address], [id number], tel:[phone] [address] [place] [address] [facility] No Information 3 Sagar Reece. [address], [address], [place], [place], [id number] , [place]. tel:[phone] Referring Provider: Chevy Shelley, [address], [place], [address] . tel:[phone] [facility], [address] [place] [address], [id number], tel:[phone] [facility] No Information 3 Sagar Reece. [address], [address], [id number] , [place]. tel:[phone] Referring Provider: Chevy Shelley, [address], [place], [address] . tel:[phone] [facility], [address] [place] [address], [place], [place], [id number], tel:[phone] [address] [place] [address] No Information 3 Sagar Reece. [address], [address], [id number] , [place]. tel:[phone] Referring Provider: Chevy Shelley, [address], [place], [address] . tel:[phone] OFFICE/OUTPA TIENT VISIT, [facility], [address] [place] [address], [id number], tel:[phone] OPH CONSULT ADITYA PEREZ Senile nuclear sclerosisMacular degeneration (senile) of retina, unspecified 3 Sagar Reece. [address], [address], [id number] , [place]. tel: [phone] Referring Provider: Chevy Shelley, [address], [place], [address] . tel:[phone] Family History Family Member Type Diagnosis Age At Onset Problem (finding) Family history of degenerative disorder of macula Problem (finding) Family history of Diabe donovan mellitus Problem (finding) Family history of glauc rush Payers Payer name Insurance type Covered republican ID Authoriza tion(s) [employer] Medicare MB [id number] [employer] [facility] CI [id number] Social History Type Description Quantity Date Captured Comments Sex Female Smoking Status No Information Chief Complaint And Reason For Visit No Information Reason For Referral Reason For Referral No Information History Of Present Illness Encounter Date Complaint History Of Prese nt Illness No Information Functional Status Date Functional Assessmen t No Information Instructions Date Instruction Additional Infor matnilda Senile nuclear scler osis OU - Cataracts [...] Degeneration Assessments Type Assessment Date No Information Patient Care Teams Name Effective Dates (start - stop) Status Members No Information
--- OUTSIDE RECORDS SUMMARY | 2024-05-08 11:02 | XMS_ITS | Encounter Summary ---
Author Organization [facility] Address [address] [place] [address] Care Team Providers Care Machine Stuffer Name Role Phone Bernadette Cedillo MD Primary Care Provider [phone] Encounter Details Date Type Department Care Team (Late Contact Info) Description 07/29/2019 Chart Note [facility] Radiation Therapy [address] [place] [address] [place] [address] [place] [address] Social History Tobacco Use Types Packs/Day Years Used Date Smoking Tobacco: Every Day Cigarettes 1 55 Smokeless Tobacco: Never Alcohol Use Standard Drinks/Week Comments No 0 (1 standard drink = 0.6 oz pur e alcohol) Comments No Sex and Gender Information Value Date Recorded Sex Assigned at Not on file 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 [address] [place] [address] documented as of this encounter Visit Diagnoses Not on filedocumented in this encounter Care Teams Machine Stuffer Relationship Specialty Start Date End Date Bernadette Cedillo MD [address] [place] [address] PCP - General Family Practice 06/30/22 documented as of this encounter
--- OUTSIDE RECORDS SUMMARY | 2024-05-08 11:02 | XMS_ITS | Referral Summary ---
Author Organization [facility] Address [address] [place] [address] Care Team Providers Care Production Specialist Name Role Phone Hernesto Joshi MD Primary Care Provider [phone] Allergies Active Allergy Reactions Criticality Noted Date [...] 1 tablet by mouth daily Active vitamins A,C,H-xgws-znenjt (ICAPS) 4,296 mcg-226 mg-90 mg capsule Take [...] Given: Not Answered Comments:0.5ppd x 50 years [facility] Utilities Answer Date Recorded In the past 12 months has th e Floored, gas, oil, or water [facility] [employer] [facility] threatened to shut off services in your [...] often do you attend chur ch or jain services? 1 to 4 times per year 11/22/2023 Do you belong to any clubs o r organizations such as alevism groups, unions, fraternal or athletic groups, or [...] any time in the past 12 m [facility], were you homeless or living in a long-term (including now)? No 11/22/2023 Personal Safety Answer Date Recorded Have you ever been in or are you currently in a harmful physical or emotional relationship or is someone making you feel afraid or unsafe? 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 Gender Identity Female 11/22/2023 9:01 AM CDT [...] Not on file Insurance MEDICARE [employer]RO[employer] MEDIC[employer] Advance Directives For more information, please contact: [phone] Documents on File Type Date Recorded Patient Veterinary Parasitologist Expl anation ADVANCE DIRECTIVE 11/27/2023 12:53 PM Pow er of [employer] * LIMITED - No CPR (Latest Code Status on File) Date Activated Date Inactivated Comments 11/22/2023 1:02 AM 11/25/2023 8:45 PM Care Teams Production Specialist Relationship Specialty Start Date End Date Hernesto Joshi MD [address] [place] [address] PCP - General 06/22/16
--- OUTSIDE RECORDS SUMMARY | 2024-05-08 11:02 | XMS_ITS | Encounter Summary ---
Author Organization [facility] Address [address] [place] [address] Care Team Providers Care X Ray Examiner Of Aircraft Name Role Phone Bernadette Cedillo MD Primary Care Provider [phone] Encounter Details Date Type Department Care Team (Late st Contact Info) Description 11/10/2022 Lab Requisition [facility] - Pathology Lab [address] [place] [address] Rocco Roblero MD [address] [address] Anemia, unspecified Social History Tobacco [...] 9:00 AM CDT) Case Report Flow Cytometry Case: [id number] Authorizing Provider: Rocco Roblero MD Collected: 11/10/2022 09:00 AM Ordering Location: [facility] Care Pathology Lab Received: 11/10/2022 11:47 AM Pathologist: Flaco Dejesus MD Specimen: Bone Marrow 11/10/2022 1:57 PM CDT [facility] PATH[facility] Final Diagnosis Bone marrow, flow cytometric immunophenotypic analysis: - no clonal B-cell population or increase in blasts - small population of myeloid blasts (3% of events) and of hematogones (2%) identified - see interpretation 11/10/2022 1:57 PM [facility] PATHOLOGY LAB Flow Cytometry Interpretation Viability: 86% Barrett: lymphocytes 10%, dimCD45 12%, granulocytes 72%, monocytes 5%. Lymphocytes: - B-cells (16% of lymphocyte gate): polytypic by Dewey-Humboldt:lambda light chain expression (K:L 2:1) - T-cells (94%): no immunophenotypic aberrancy detected Dim CD45 gate: - Blasts: detected, 3% of all events, express CD34, CD13, CD33 with manager analytical pattern of maturation - Hematogones: detected, 2% of all events, CD19 and CD10 A bone marrow aspirate smear prepared from the flow cytometry specimen has been reviewed for quality audit representative purposes. 11/10/2022 1:57 PM [facility] PATHOLOGY LAB Flow Cytometry Results Differential Result Comment Flow Cell Count /uL 84,000 Total Viability % 86.0 Lymphocytes % 10 Dim CD45 Region % 12 Monocytes % 5 Granulocytes % 72 11/10/2022 1:57 PM [facility] PATHOLOGY LAB Reason for test Anemia, unspecified 285.9 11/10/2022 1:57 PM [facility] PATHOLOGY LAB Client Specimen ID # [id number] 11/10/2022 1:57 PM [facility] PATHOLOGY LAB Number of markers 10 were performed. A-2 Flow CD10 A-3 Flow CD13 A-5 Flow CD20 A-1 Flow CD5 A-4 Flow CD19 A-6 Flow CD33 A-7 Flow CD34 A-8 Flow CD45 A-9 Dewey-Humboldt+CD19+ A-10 Lambda+CD19+ 11/10/2022 1:57 PM [facility] PATHOLOGY LAB Pathologist Location at [facility] 11/10/2022 1:57 PM [facility] PATHOLOGY LAB Disclaimer Test performed at [facility], [address] [place] [address], [address]. The established laboratory minimum viability is 70%. [...] clinical testing. 11/10/2022 1:57 PM CDT [facility] PATHOLOGY LAB Embedded Images 1:57 PM CDT [facility] PATHOLOGY LAB Pathology/Cytolo gy BONE MARROW SPECIMEN / Unknown 11/10/2022 9:00 AM CDT 11/10/2022 11:47 AM CDT Rocco Roblero MD LAB - PATHOLOGY/CYTO LOGY ORDERABLES [facility] PATHOLOGY LAB [address] [phone] documented in this encounter Visit Diagnoses Diagnosis Anemia, unspecified documented in this encounter Care Teams X Ray Examiner Of Aircraft Relationship Specialty Start Date End Date Bernadette Cedillo MD [address] [place] [address] PCP - General 06/22/21 documented as of this encounter
== END 2024-05-08 09:49 | disposition home or self-care (01) ==
PROVIDERS: PCP Family Medicine; Visit Provider Family Medicine
DX: M19.022 Primary osteoarthritis, left elbow (principal)
CPT/HCPCS: 73080

== ENCOUNTER 2024-05-15 07:12 | Outpatient (RCR) | payer MEDICARE, OTHER, SELFPAY ==
[2024-05-15] VITALS (8 sets, daily range): BP systolic 124–149; BP diastolic 57–73; PULSE 76–87; RESP 16–20; TEMP 36.4–36.9; O2SAT 97–100
--- NOTE | 2024-05-15 07:38 | PC.NURSE ---
Patient took 1,000mg of Tylenol prior to coming to her blood transfusion procedure today.
[2024-05-15] MEDS: diphenhydrAMINE HCl CAP 25 MG CAPSULE PO (08:57)
[2024-05-15] MEDS: FUROSEMIDE INJ 40 MG/4 ML VIAL 20 MG IV PUSH (11:48)
== END 2024-06-30 23:59 | disposition home or self-care (01) ==
LOC: ANHCPCTRAN 07:12
PROVIDERS: PCP Family Medicine; Visit Provider Internal Medicine Hematology & Oncology
DX: C50.919 Malignant neoplasm of unspecified site of unspecified female breast (principal)
CPT/HCPCS: 36415; 36430; 86850; 86900; 86901; 86923; 96374; A9270; J1938; P9016

== ENCOUNTER 2024-05-21 21:50 | Inpatient (IN) | payer MEDICARE, OTHER, SELFPAY ==
--- NOTE | ~2024-05-21 | CT_ITS ---
History: Worsening mental status and frequent falls. Personal history of non-small cell left-sided lung cancer PROCEDURE: CT head without contrast. COMPARISON: None TECHNIQUE: Axial imaging of the head performed from the skull base to the vertex without IV contrast. Sagittal a nd coronal reformations obtained. DLP: 605 mGy-cm FINDINGS: The ventricles are enlarged. The dilatation of the ventricles is proportional to the degree of sulcal prominence, not uncommon in the senescent brain. Decreased attenuation is identified within the periventricular white matter, likely secondary to micr ovascular ischemic disease, in a patient of this age. There is no mass, mass effect or midline shift. There is no abnormal extra-axial fluid collection or intracranial hemorrhage. Visualized paranasal sinuses are clear. The mastoid air cells are well aerated. No acute displaced fractures within the overlying cranium. Impression: No acute intracranial hemorrhage or suspicious mass effect. Reviewed, dictated and finalized at location A. Impression: No acute intracranial hemorrhage or suspicious mass effect.
--- NOTE | ~2024-05-21 | XR_ITS ---
CHEST RADIOGRAPH CLINICAL HISTORY: Altered mental status . COMPARISON: 03/11/2024 TECHNIQUE: Single portable view of the chest. FINDINGS The cardiomediastinal silhouette is enlarged, unchanged. Redemonstration of a spiculated right upper lobe mass adjacent to a staple line within the chest sugg esting prior wedge resection. Increased interstitial markings are identified bilaterally, findings suggesting mild pulmonary vascul ar congestion. Interstitial thickening is also redemonstrated. The remainder of the lungs are clear. Increased opacification of the left mid to lower lung field, likely secondary to overlying soft tissu e, rather than intrinsic pulmonary disease. IMPRESSION: Mild pulmonary vascular congestion with interstitial thickening and increased opacification of the le ft mid to lower lung field, likely secondary to overlying soft tissue. Reviewed, dictated and finalized at location A. IMPRESSION: Mild pulmonary vascular congestion with interstitial thickening and increased o pacification of the left mid to lower lung field, likely secondary to overlying soft tissue.
--- NOTE | ~2024-05-21 | CT_ITS ---
CLINICAL INDICATION: Abdominal pain COMPARISON: 01/16/2024 and dating back to 01/18/2023. TECHNIQUE: Multiple contiguous axial images of the abdomen and pelvis were performed following the ad ministration of with 100 mL Omnipaque-350 intravenous contrast The dose-length product (DLP) was 1131.38 mGy-cm. Automated exposure control and iterative reconstruction technique were employed. FINDINGS/OBSERVATIONS: Visualized lower thorax: Interstitial thickening detected bilaterally, without focal infiltrate or effusion. The heart is enlarged, without pericardial effusion. Liver: The liver demonstrates homogeneous enhancement and is not enlarged. Gallbladder and biliary system: The gallbladder is surgically absent. Pancreas: The pancreas enhances homogeneously without ductal dilatation. Spleen: Large well-circumscribed focus of decreased attenuation within the spleen, minimally increase d in size when compared with previous study dated 01/18/2023. The remainder of the spleen otherwise enhances homogeneously and is not enlarged. Kidneys: Rounded foci of fluid attenuation are identified within the bilateral kidneys, the largest i s exophytic from the interpolar region of the left kidney measuring 3.9 cm in greatest dimension. The remainder of the bilateral atrophic kidneys otherwise enhance symmetrically without hydronephrosi s or renal calculi. Adrenal glands: Unremarkable. Gastrointestinal tract: Colonic diverticulosis without surrounding inflammatory change. Appendix: Surgically absent. Vasculature: Densely calcified atherosclerotic disease. Lymph nodes: No pathologically enlarged or morphologically suspicious lymph nodes within the retroperitoneum or at the root of the mesentery. Pelvic structures: The bladder is distended, and otherwise unremarkable. The uterus is anteverted and anteflexed. Body wall and musculoskeletal: Small fat-containing umbilical hernia. Significant degenerative disease within the lumbosacral spine, with osteophyte formation, disc space narrowing, endplate changes and vacuum phenomena. An expansile focus of decreased attenuation within the left pedicle of L1 is present for which metast atic disease is suspected. No additional lytic expansile lesions are identified within the visualized osseous structures. IMPRESSION: No acute findings within the abdomen or pelvis to account for patient's abdominal pain. Innumerable n onacute findings, as detailed above. Reviewed, dictated and finalized at location A. IMPRESSION: No acute findings within the abdomen or pelvis to account for patient's abdomin al pain. Innumerable nonacute findings, as detailed above.
--- NOTE | ~2024-05-21 | MR_ITS ---
EXAMINATION: MR brain/brain stem wo/w con DATE: 05/24/2024 10:59 INDICATION: Strokelike symptoms. Altered mental status. Weakness. TECHNIQUE: Magnetic resonance imaging (MRI) of the brain and brainstem was performed without and with 16 mL ProHance intravenous contrast. Sequences included sagittal and axial T1-weighted SE, axial dif fusion-weighted FS SE, axial T2*-weighted GRE, axial T2-weighted FLAIR, and axial T2-weighted FSE. Po stcontrast axial T1-weighted SE was obtained. Apparent diffusion coefficient (ADC) maps were created. COMPARISON: Head CT dated 05/21/2024 FINDINGS: There are no areas of restricted diffusion to suggest acute infarction. No intracranial hemorrhage or abnormal intracranial mass lesion. There are scattered areas of nonspecific increased T2-weighted si gnal intensity in the pontine and cerebral white matter, predominantly involving the deep and periven tricular white matter. There are no intraparenchymal signal abnormalities seen on the other pulse seq uences. Symmetric prominence of the sulci consistent with mild to moderate age-appropriate diffuse ce rebral volume loss. The ventricles are symmetric and normal in size. There are no abnormal extra-axi al fluid collections. Flow voids are seen in the cerebral arteries on the T2-weighted sequences consi stent with their expected patency. Mild mucosal thickening in the paranasal sinuses and mucous retent ion cyst at the floor of the right maxillary sinus. Left mastoid effusion. Changes of bilateral intra ocular lens replacement. There are no areas of abnormal enhancement on the post contrast images. IMPRESSION: 1. No acute intracranial process. 2. Age-related changes including mild to moderate diffuse volume loss and moderate cerebral and ponti ne white matter T2 hyperintensity consistent with chronic small vessel ischemic disease. 2. Left mastoid effusion. Reviewed, dictated and finalized at location B. IMPRESSION: 1. No acute intracranial process. 2. Age-related changes including mild to moderate diffuse volume loss and moder ate cerebral and pontine white matter T2 hyperintensity consistent with chronic small vessel ischemic disease. 2. Left mastoid effusion.
[2024-05-21 21:52] VITALS: BP 133/99; PULSE 87; RESP 19; TEMP 36.7; O2SAT 97
[2024-05-21 22:09] VITALS: BP 133/99; PULSE 86; PULSE 87; RESP 22; TEMP 36.7; O2SAT 98
[2024-05-21 22:11] VITALS: O2SAT 99
--- OUTSIDE RECORDS SUMMARY | 2024-05-21 22:33 | XMS_ITS | Encounter Summary ---
Author Organization [facility] Lizama [employer] Address [address] [place] [address] Care Team Providers Care Director Decision Support Name Role Phone Bernadette Cedillo MD Primary Care Provider [phone] Encounter Details Date Type Department Care Team ([facility] Contact Info) Description 06/10/2022 Abstract [facility] Oncology and Hematology - Ryan [address] [place] [address] Greg Barrow, STEVE Social History Tobacco Use Types Packs/Day Years Used Date Smoking Tobacco: Every Day Cigarettes 1 55 Smokeless Tobacco: Never Alcohol Use Standard Drinks/Week Comments No 0 (1 standard drink = 0.6 oz pur e alcohol) Comments No Sex and Gender Information Value Date Recorded Sex Assigned at Not on file 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 No / Unsure 06/02/2022 1:16 PM CDT documented as of this encounter Plan of Treatment Upcoming Encounters Date Type Department Care Team ([facility] Contact Info) Description 07/02/2024 8:30 AM CDT Office Visit [facility] Oncology and Hematology - [address] [place] [address] David Michaud MD [address] [facility] [address] [place] [address] documented as of this encounter Visit Diagnoses Not on filedocumented in this encounter Care Teams Director Decision Support Relationship Specialty Start Date End Date Bernadette Cedillo MD [address] [place] [address] PCP - General Family Practice 06/30/22 documented as of this encounter
--- OUTSIDE RECORDS SUMMARY | 2024-05-21 22:33 | XMS_ITS | Encounter Summary ---
Author Organization [facility] Address [address] [place] [address] Care Team Providers Care Express Clerk Name Role Phone Bernadette Cedillo MD Primary Care Provider [phone] Encounter Details Date Type Department Care Team (Late st Contact Info) Description 11/10/2022 Lab Requisition [facility] - Pathology Lab [address] [place] [address] Rocco Roblero MD [address] [address] Anemia, unspecified Social History Tobacco [...] AM CDT) Case Report Flow Cytometry Case: [id number] Authorizing Provider: Rocco Roblero MD Collected: 11/10/2022 09:00 AM Ordering Location: [facility] Care Pathology Lab Received: 11/10/2022 11:47 AM Pathologist: Flaco Dejesus MD Specimen: Bone Marrow 11/10/2022 1:57 PM CDT [facility] PATH[facility] LAB Final Diagnosis Bone marrow, flow cytometric immunophenotypic analysis: - no clonal B-cell population or increase in blasts - small population of myeloid blasts (3% of events) and of hematogones (2%) identified - see interpretation 11/10/2022 1:57 PM [facility] PATHOLOGY LAB Flow Cytometry Interpretation Viability: 86% Barrett: lymphocytes 10%, dimCD45 12%, granulocytes 72%, monocytes 5%. Lymphocytes: - B-cells (16% of lymphocyte gate): polytypic by Emhouse:lambda light chain expression (K:L 2:1) - T-cells (94%): no immunophenotypic aberrancy detected Dim CD45 gate: - Blasts: detected, 3% of all events, express CD34, CD13, CD33 with media professional pattern of maturation - Hematogones: detected, 2% of all events, CD19 and CD10 A bone marrow aspirate smear prepared from the flow cytometry specimen has been reviewed for quality assurance inspector purposes. 11/10/2022 1:57 PM [facility] PATHOLOGY LAB Flow Cytometry Results Differential Result Comment Flow Cell Count /uL 84,000 Total Viability % 86.0 Lymphocytes % 10 Dim CD45 Region % 12 Monocytes % 5 Granulocytes % 72 11/10/2022 1:57 PM [facility] PATHOLOGY LAB Reason for test Anemia, unspecified 285.9 11/10/2022 1:57 PM [facility] PATHOLOGY LAB Client Specimen ID # [id number] 11/10/2022 1:57 PM [facility] PATHOLOGY LAB Number of markers 10 were performed. A-2 Flow CD10 A-3 Flow CD13 A-5 Flow CD20 A-1 Flow CD5 A-4 Flow CD19 A-6 Flow CD33 A-7 Flow CD34 A-8 Flow CD45 A-9 Emhouse+CD19+ A-10 Lambda+CD19+ 11/10/2022 1:57 PM [facility] PATHOLOGY LAB Pathologist Location at [facility] 11/10/2022 1:57 PM [facility] PATHOLOGY LAB Disclaimer Test performed at [facility], [address] [place] [address], [address]. The established laboratory minimum viability is 70%. [...] complexity clinical testing. 11/10/2022 1:57 PM CDT [facility] PATHOLOGY LAB Embedded Images 1:57 PM CDT [facility] PATHOLOGY LAB Pathology/Cytolo gy BONE MARROW SPECIMEN / Unknown 11/10/2022 9:00 AM CDT 11/10/2022 11:47 AM CDT Rocco Roblero MD LAB - PATHOLOGY/CYTO LOGY ORDERABLES [facility] PATHOLOGY LAB [address] [phone] documented in this encounter Visit Diagnoses Diagnosis Anemia, unspecified documented in this encounter Care Teams Express Clerk Relationship Specialty Start Date End Date Bernadette Cedillo MD [address] [place] [address] PCP - General 06/22/21 documented as of this encounter
--- OUTSIDE RECORDS SUMMARY | 2024-05-21 22:33 | XMS_ITS | Clinical Summary ---
Author Organization [facility] Address [address] [place] [address] Care Team Providers Care Railroad Mechanic Name Role Phone Bernadette Cedillo MD Primary Care Provider [phone] Source Comments [facility],non-owned Affiliates and Associated Physician Practices is amultiple site organization consisting of ambulatory clinics and hospital sitesin [place], [place], [place] and [place]. This disclosure is being madepursuant to the Care Everywhere program and may not contain all information available regarding this patient. Last updated 17.[facility] Social History Tobacco Use Types Packs/Day Years [...] age to complete this topic Care Teams Railroad Mechanic Relationship Specialty Start Date End Date Bernadette Cedillo MD [address] [place] [address] PCP - General 06/22/21
--- OUTSIDE RECORDS SUMMARY | 2024-05-21 22:33 | XMS_ITS | Encounter Summary ---
Author Organization [facility] Lizama [employer] Address [address] [place] [address] Care Team Providers Care Assistant Superintendent For Curriculum Name Role Phone Bernadette Cedillo MD Primary Care Provider [phone] Encounter Details Date Type Department Care Team (Late Contact Info) Description 01/23/2023 Abstract [facility] Oncology and Hematology - [address] [place] [address] Colette Cage, STEVE Social History Tobacco Use Types Packs/Day Years Used Date Smoking Tobacco: Every Day Cigarettes 1 55 Smokeless Tobacco: Never Alcohol Use Standard Drinks/Week Comments No 0 (1 standard drink = 0.6 oz pur e alcohol) Comments No Sex and Gender Information Value Date Recorded Sex Assigned at Not on file 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 Gender Identity Not on file Sexual Orientation Not on file documented as of this encounter Plan of Treatment Upcoming Encounters Date Type Department Care Team (Late st Contact Info) Description 07/02/2024 8:30 AM CDT Office Visit [facility] Oncology and Hematology - [address] [place] [address] David Michaud MD [address] [facility] [address] [place] [address] documented as of this encounter Visit Diagnoses Not on filedocumented in this encounter Care Teams Assistant Superintendent For Curriculum Relationship Specialty Start Date End Date Bernadette Cedillo MD [address] [place] [address] PCP - General Family Practice 06/30/22 documented as of this encounter
--- OUTSIDE RECORDS SUMMARY | 2024-05-21 22:33 | XMS_ITS | Encounter Summary ---
Author Organization [facility] Address [address] [place] [address] Care Team Providers Care Expert Medical Writer Name Role Phone Bernadette Cedillo MD Primary Care Provider [phone] Encounter Details Date Type Department Care Team (Late st Contact Info) Description 11/14/2022 Lab Requisition [facility] - Pathology Lab [address] [place] [address] Rocco Roblero MD [address] [address] Illness, unspecified Social History Tobacco [...] Report Bone Marrow Patholog y Report Case: [id number] Authorizing Provider: Rocco Roblero MD Collected: 11/10/2022 09:00 AM Ordering Location: [facility] Pathology Lab Received: 11/14/2022 09:45 [...] anemia - See description 11/14/2022 10:58 AM [facility] Comment Overall, the bone marrow specimen is normocellular for age with maturing trilineage hematopoiesis and no evidence of lymphoma, a high-grade myeloid neoplasm, or significant dyspoiesis. Storage iron is decreased. Correlation with clinical findings and relevant cytogenetic/molecular testing is required. 11/14/2022 10:58 AM [facility] Peripheral Smear Description CBC Data: WBC - 7.9, Hgb - 8.3, MCV - 105.6, MCHC - 31, and Platelets - 172. Leukocyte number: normal. Granulocyte morphology: normal. Lymphocyte morphology: normal. Erythrocyte number: decreased. Erythrocyte morphology: macrocytic. Anisopoikilocytosis: mild. Polychromasia: mild. Platelet number: normal. Platelet morphology: normal. 11/14/2022 10:58 AM [facility] Bone Marrow Aspirate Differential [...] Control is appropriately reactive. 11/14/2022 10:58 AM [facility] Bone Marrow Core Biopsy [...] special stain): decreased. 11/14/2022 10:58 AM CDT [facility] PATH[facility] Flow Cytometry Summary Concurrent flow cytometry ([id number]) shows no clonal B-cell population or increase in blasts. 11/14/2022 10:58 AM CDT [facility] Clinical History 77 year old woman with chronic anemia. 11/14/2022 10:58 AM T [facility] PATH[facility] Materials Received Received are 20 slides and 3 blocks labeled [id number] along with a copy of the outside pathology report. The materials originate from [place] [address]. All original materials are returned to the referring institution, along with a copy of our final report. 11/14/2022 10:58 AM T [facility] PATH[facility] Pathologist Location at [facility] 11/14/2022 10:58 AM T [facility] PATHOLOG[facility] LAB Disclaimer The performance characteristics of all immunohistochemical and indirect immunofluorescence stains (if any) cited in this report were determined by the Histopathology Laboratory of [facility]. Some of these tests were developed [...] attending (teaching) pathologist. 11/14/2022 10:58 AM CDT [facility] PATH[facility] Embedded Images 11/14/2022 10:58 AM CDT [facility] LAB Pathology/Cytology BONE MARROW SPECIMEN / Unknown 11/10/2022 9:00 AM CDT 11/14/2022 9:45 AM CDT Miscellaneous samples (specimen) BONE MARROW SPECIMEN / Unknown 11/10/2022 9:00 AM CDT 11/14/2022 9:59 AM CDT Rocco Roblero MD LAB - PATHOLOGY/CYTO LOGY ORDERABLES [facility] PATHOLOGY LAB [address] [place], [place] [address] [phone] documented in this encounter Visit Diagnoses Diagnosis Illness, unspecified documented in this encounter Care Teams Expert Medical Writer Relationship Specialty Start Date End Date Bernadette Cedillo MD [address] [place] [address] PCP - General 06/22/21 documented as of this encounter
--- OUTSIDE RECORDS SUMMARY | 2024-05-21 22:33 | XMS_ITS | Encounter Summary ---
Author Organization [facility] Address [address] [place] [address] Care Team Providers Care River Driver Name Role Phone Bernadette Cedillo MD Primary Care Provider [phone] Encounter Details Date Type Department Care Team (Late st Contact Info) Description 11/14/2022 Lab Requisition [facility] - Pathology Lab [address] [place] [address] Rocco Roblero MD [address] [address] Illness, unspecified Social History Tobacco [...] unspecified documented in this encounter Care Teams River Driver Relationship Specialty Start Date End Date Bernadette Cedillo MD [address] [place] [address] PCP - General 06/22/21 documented as of this encounter
--- OUTSIDE RECORDS SUMMARY | 2024-05-21 22:34 | XMS_ITS | Encounter Summary ---
Author Organization [facility] Address [address] [place] [address] Care Team Providers Care Vamp Wetter Name Role Phone Bernadette Cedillo MD Primary Care Provider [phone] Encounter Details Date Type Department Care Team ([facility] Contact Info) Description 05/15/2024 Orders Only [facility] Oncology and Hematology - [address] [place] [address] David Michaud MD 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 [employer] [address] [place] [address] documented as of this encounter Procedures Procedure Name Priority Date/Time Associated Diagnosis Comments TYPE AND SCREEN Routine 05/15/2024 11:09 AM CDT documented in this encounter Results * TYPE AND SCREEN (05/15/2024 11:09 AM CDT) Blood David Michaud MD BLOOD BANK ORDERABLES Final Res ult documented in this encounter Visit Diagnoses Not on filedocumented in this encounter Care Teams Vamp Wetter Relationship Specialty Start Date End Date Bernadette Cedillo MD [address] [place] [address] PCP - General Family Practice 06/30/22 documented as of this encounter
--- OUTSIDE RECORDS SUMMARY | 2024-05-21 22:34 | XMS_ITS | Clinical Summary ---
Author Organization [facility] Address [address] [place] [address] Care Team Providers Care Heavy Equipment Operator Name Role Phone Bernadette Cedillo MD Primary Care Provider [phone] Allergies Active Allergy Reactions Criticality Noted Date [...] Encounters Date Type Department Care Team Description 05/20/2024 Orders Only [facility] Oncology and Hematology - [address] [place] [address] David Michaud MD Malignant 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, estrogen receptor positive (CMS/HCC) 05/16/2024 Abstract [facility] Oncology and Hematology - [address] [place] [address] David Michaud MD 05/15/2024 Orders Only [facility] Oncology and Hematology - [address] [place] [address] David Michaud MD 05/14/2024 Orders Only [facility] Oncology and Hematology - [address] [place] [address] David Michaud MD 05/06/2024 Orders Only [facility] Oncology and Hematology - [address] [place] [phone] David Michaud MD Malignant 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, estrogen receptor positive (CMS/HCC) 04/22/2024 Orders Only [facility] Oncology and Hematology - [address] [place] [address] David Michaud MD Malignant 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, estrogen receptor positive (CMS/HCC) 04/16/2024 Orders Only [facility] Oncology and Hematology - [address] [place] [address] David Michaud MD 04/08/2024 Orders Only [facility] Oncology and Hematology - [address] [place] [address] David Michaud MD Malignant 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, estrogen receptor positive (CMS/HCC) 04/04/2024 8:30 AM DATA REPORT ANALYST Office Visit [facility] Oncology and Hematology - [address] [place] [address] David Michaud MD Malignant 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, estrogen receptor positive (CMS/HCC) (Primary Dx); Non-small cell cancer of left lung (CMS/HCC) 04/02/2024 External Device Data STL ABSTRACTION Provider, Abstract 03/25/2024 Orders Only [facility] Oncology and Hematology - [address] [place] [address] David Michaud MD Malignant 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, estrogen receptor positive (CMS/HCC) 03/05/2024 External Device Data STL ABSTRACTION Provider, Abstract 03/04/2024 Orders Only [facility] Oncology and Hematology - [address] [place] [address] David Michaud MD 02/27/2024 External Device Data STL ABSTRACTION Provider, Abstract 02/27/2024 Orders Only [facility] Oncology and Hematology - [address] [place] [address] David Michaud MD 02/26/2024 Orders Only [facility] Oncology and Hematology - Yran [address] [place] [address] David Michaud MD Malignant 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, estrogen receptor positive (CMS/HCC) 02/21/2024 Orders Only [facility] Oncology and Hematology - [address] [place] [address] David Michaud MD from Last 3 Months Family History Medical [...] on file Legal Sex Female 2:13 PM DATA REPORT ANALYST Gender Identity Not on file Sexual Orientation Not on file Last Filed Vital Signs Vital Sign Reading Time Taken Comments Blood Pressure 167/91 04/04/2024 8:48 AM DATA REPORT ANALYST Pulse 73 04/04/2024 8:45 AM DATA REPORT ANALYST Temperature 36.1 C (97 F) 04/04/2024 8:45 AM DATA REPORT ANALYST Respiratory Rate 15 04/04/2024 8:45 AM DATA REPORT ANALYST Oxygen Saturation 99% 04/04/2024 8:45 AM DATA REPORT ANALYST Inhaled Oxygen Concentration - - Weight 71.5 kg (157 lb 9.6 oz) 04/04/2024 8:45 A M DATA REPORT ANALYST Height 154.9 cm (5' 1 ) 07/09/2021 9:59 AM CDT Body Mass Index 29.78 07/09/2021 9:59 AM CDT Plan of Treatment Upcoming Encounters Date Type Department Care Team (Late st Contact Info) Description 07/02/2024 8:30 AM CDT Office Visit [facility] Oncology and Hematology - Ryan [address] [facility] [address] [place] [address] David Michaud MD [address] [facility] [address] [place] [address] Health Maintenance Due Date Last [...] AND SCREEN Routine 05/15/2024 11:09 AM CDT CBC WITH AUTODIFFERENTIAL Routine 2024 1:08 PM CDT CBC WITH AUTODIFFERENTIAL Routine 2024 1:22 PM DATA REPORT ANALYST CREATININE Routine 03/04/2024 11:12 [address] CHEST W CONTRAST Routine 03/04/2024 1 0:06 AM DATA REPORT ANALYST CBC WITH DIFFERENTIAL Routine 02/26/2024 12:16 PM DATA REPORT ANALYST from Last 3 Months Results * TYPE AND SCREEN (05/15/2024 11:09 AM CDT) Blood us David Michaud MD BLOOD BANK ORDERABLES Final Res ult * CBC WITH AUTODIFFERENTIAL (05/14/2024 1:08 PM CDT) Only the most recent of2 resultswithin the time period is included. Blood David Michaud MD HEMATOLOGY ORDERABLES Final Res ult * CREATININE (03/04/2024 11:12 AM DATA REPORT ANALYST) Blood David Michaud MD CHEMISTRY ORDERABLES Final Resu lt * CT CHEST W CONTRAST (03/04/2024 10:06 AM DATA REPORT ANALYST) Anatomical Region Laterality Modality Chest Computed Tomogra phy David Michaud MD CT ORDERABLES Final Result * CBC WITH DIFFERENTIAL (02/26/2024 12:16 PM DATA REPORT ANALYST) Blood David Michaud MD HEMATOLOGY ORDERABLES Final Res ult from Last 3 Months Insurance [facility] MEDICARE [employer] [facility] Medicare Part D RX [facility] Commercial Care Teams Heavy Equipment Operator Relationship Specialty Start Date End Date Bernadette Cedillo MD [address] [place] [address] PCP - General Family Practice 06/30/22
--- OUTSIDE RECORDS SUMMARY | 2024-05-21 22:34 | XMS_ITS | Continuity of Care Document ---
Author Organization [facility] Address [address] [facility] [address] [place] [address] Phone Care Team Providers Care Factory Laborer Name Role Phone Chevy Keith MD Unavailable [...] CATARACT SURG W/IOL, 1 STAGE OFFICE/OUTPATIENT VISIT, [facility] OPHTHALMIC BIOMETRY Advance Directives Directive Yes / No Effective Date File Name No Information Encounters Encounter Description Practice Location Reason(s) For Visit Diagnoses Date Provider Providers Copied on Encounter [facility], [address] [place] [address], [id number], tel:[phone] [address] [place] [address] [facility] No Information 3 Sagar Reece. [address], [address], [place], [place], [id number] , [place]. tel:[phone] Referring Provider: Chevy Shelley, [address], [place], [address] . tel:[phone] [facility], [address] [place] [address], [id number], tel:[phone] [facility] Consult [facility] No Information 3 Sagar Reece. [address], [address], [id number] , [place]. tel:[phone] Referring Provider: Chevy Shelley, [address], [place], [address] . tel:[phone] [facility], [address] [place] [address], [place], [place], [id number], tel:[phone] [address] [place] [address] No Information 3 Sagar Reece. [address], [address] [place], [place], [id number] , [place]. tel:[phone] Referring Provider: Chevy Shelley, [address], [place], [address] . tel:[phone] OFFICE/OUTPA TIENT VISIT, [facility], [address] [place] [address], [id number], tel:[phone] OPH CONSULT ADITYA PEREZ Senile nuclear sclerosisMacular degeneration (senile) of retina, unspecified 3 Sagar Reece. [address], [address] [place], [place], [id number] , [place]. tel: [phone] Referring Provider: Chevy Shelley, [address], [place], [address] . tel:[phone] Family History Family Member Type Diagnosis Age At Onset Problem (finding) Family history of degenerative disorder of macula Problem (finding) Family history of Diabe donovan mellitus Problem (finding) Family history of glauc rush Payers Payer name Insurance type Covered republican ID Authoriza tion(s) [employer] MB [id number] [employer] [facility] CI [id number] Social History Type Description Quantity Date Captured [...]
--- OUTSIDE RECORDS SUMMARY | 2024-05-21 22:34 | XMS_ITS | Encounter Summary ---
Author Organization [facility] Address [address] [place] [address] Care Team Providers Care Full Charge Bookkeeper Name Role Phone Bernadette Cedillo MD Primary Care Provider Encounter Details Date Type Department Care Team (Late Contact Info) Description 07/29/2019 Chart Note [facility] Radiation Therapy [address] [place] [address] [place] [address] [place] [address] Social History Tobacco Use Types Packs/Day Years Used Date Smoking Tobacco: Every Day Cigarettes 1 55 Smokeless Tobacco: Never Alcohol Use Standard Drinks/Week Comments No 0 (1 standard drink = 0.6 oz pur e alcohol) Comments No Sex and Gender Information Value Date Recorded Sex Assigned at Not on file Legal Sex Female 2:13 PM TAX SPECIALIST Gender Identity Not on file Sexual [...] [facility] Hematology - Ryan [address] [facility] [address] [place] [address] David Michaud MD [address] [facility] [address] [place] [address] documented as of this encounter Visit Diagnoses Not on filedocumented in this encounter Care Teams Full Charge Bookkeeper Relationship Specialty Start Date End Date Bernadette Cedillo MD [address] [place] [address] PCP - General Family Practice 06/30/22 documented as of this encounter
--- OUTSIDE RECORDS SUMMARY | 2024-05-21 22:34 | XMS_ITS | Encounter Summary ---
Author Organization [facility] Address [address] [place] [address] Care Team Providers Care Director Mba Name Role Phone Bernadette Cedillo MD Primary Care Provider [phone] Encounter Details Date Type Department Care Team (Late Contact Info) Description 05/20/2024 Orders Only [facility] Oncology and Hematology - [address] [place] [address] David Michaud MD [address] [place], [place] [address] [address] [place] [address] Malignant neoplasm of overlapping sites of [...] on file Legal Sex Female 2:13 PM COMMODITIES BROKER Gender Identity Not on file Sexual Orientation Not on file documented as of this encounter Plan of Treatment Upcoming Encounters Date Type Department Care Team (Late Contact Info) Description 07/02/2024 8:30 AM CDT Office Visit [facility] Oncology and Hematology - [address] [place] [address] David Michaud MD [address] [employer] [address] [place] [address] documented as of this encounter Visit Diagnoses Diagnosis Malignant 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, estrogen receptor positive (CMS/HCC) documented in this encounter Care Teams Director Mba Relationship Specialty Start Date End Date Bernadette Cedillo MD [address] [place] [address] PCP - General Family Practice 06/30/22 documented as of this encounter
--- OUTSIDE RECORDS SUMMARY | 2024-05-21 22:34 | XMS_ITS | Clinical Summary ---
Author Organization [facility] Address [address] [place] [address] Care Team Providers Care Dry Cleaning Machine Operator Name Role Phone Kennedi Salcedo MD Primary Care Provider [phone] Bernadette Cedillo MD Unavailable David Michaud MD Unavailable [phone] Allergies Active Allergy Reactions Criticality Noted [...] Diagnosed Date Acute respiratory failure ([facility]) 02/13 Non-small cell cancer of left lung ([facility]) 07/12/2019 Other osteoporosis without current pathological fracture 02/18/2019 Malignant neoplasm of overla pping 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, estrogen receptor positive ([facility]) 03/12/2018 Social History Tobacco Use [...] often do you attend chur ch or catholic services? 1 to 4 times per year [...] and heating? Not hard at all 02/23/2020 [facility] - [...] Sex Assigned at Female 02/23/2020 11:09 PM BRAZING MACHINE OPERATOR AUTOMATIC Legal Sex Female 5:19 PM CDT Gender Identity Female 02/23/2020 11:09 PM BRAZING MACHINE OPERATOR AUTOMATIC Sexual Orientation Straight 02/23/2020 11 :09 PM BRAZING MACHINE OPERATOR AUTOMATIC Last Filed Vital Signs Vital Sign Reading [...] Vaccine ( - 2023-2 5 season) 2023 Hepatitis C Completed 10/19/2016 Meningococcal B Vaccine [...] VE NON-REACTI VE 10/19/2016 6:25 PM CDT [facility] Comment: TESTING PERFORMED [facility] [place] [address] SERUM OR PLASMA SPECIMEN / Unknown 10/19/2016 9:12 AM CDT 10/19/2016 9:22 AM CDT us Generic Conversion Md [facility] Final R esult [facility] [address] [place] [address], [place] [phone] from Last 3 Months or Most Recently Relevant to Health Maintenance Insurance RAILROAD MEDICARE [facility] Advance Directives Documents on File Type Date Recorded Patient Group Social Worker Expl anation Advance Directives and Living Will 11/22/2023 9:16 AM 06/14/2021 POA FOR HEALTH CARE * Full Code (Latest Code Status on File) Date Activated Date Inactivated Comments 02/23/2020 10:56 PM 02/25/2020 8:21 PM Care Teams Dry Cleaning Machine Operator Relationship Specialty Start Date End Date Kennedi Salcedo MD PCP - General FAMILY PRACTICE 02/23/20 Bernadette Cedillo MD [address] [place] [address] [place] [address] FAMILY PRACTICE 11/21/23 David Michaud MD [address] [facility] [address] [place] [address] HEMATOLOGY/ONCOLOGY 11/21/23
--- OUTSIDE RECORDS SUMMARY | 2024-05-21 22:34 | XMS_ITS | Referral Summary ---
Author Organization [facility] Address [address] [place] [address] Care Team Providers Care Elementary Librarian Name Role Phone Hernesto Joshi MD Primary Care Provider [phone] Allergies Active Allergy Reactions Criticality Noted Date [...] 1 tablet by mouth daily Active vitamins A,C,C-ncqh-embgrc (ICAPS) 4,296 mcg-226 mg-90 mg capsule Take [...] the past 12 months has th e [employer], gas, oil, or water [employer] threatened to shut off services in your [...] often do you attend chur ch or jewish services? 1 to 4 times per year [...] any time in the past 12 [facility], were you homeless or living in a chcf (including now)? No 11/22/2023 Personal Safety Answer Date Recorded Have you ever been in or are you currently in a harmful physical or emotional relationship or is someone making you feel afraid or unsafe? 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 ELECTRONIC GLUER Gender Identity Female 11/22/2023 9:01 AM CDT [...] on file Insurance MEDICARE [employer]ROAD [employer] [place] MEDICARE [employer] [place] Advance Directives For more information, please contact: [phone] Documents on File Type Date Recorded Patient Pattern Hand Expl anation ADVANCE DIRECTIVE 11/27/2023 12:53 PM Pow er of Drilling Manager-Medical * LIMITED - No CPR (Latest Code Status on File) Date Activated Date Inactivated Comments 11/22/2023 1:02 AM 11/25/2023 8:45 PM Care Teams Elementary Librarian Relationship Specialty Start Date End Date Hernesto Joshi MD [address] [place] [address] PCP - General 06/22/16
--- OUTSIDE RECORDS SUMMARY | 2024-05-21 22:34 | XMS_ITS | Clinical Summary ---
Author Organization [facility] Address [address] [place] [address] Care Team Providers Care Poultice Machine Operator Name Role Phone Hernesto Johsi MD Primary Care Provider [phone] Allergies Active Allergy Reactions Criticality Noted Date [...] 1 tablet by mouth daily Active vitamins A,C,Z-goeq-jraqoo (ICAPS) 4,296 mcg-226 mg-90 mg capsule Take [...] Given: Not Answered Comments:0.5ppd x 50 years [employer] Answer Date Recorded In the past 12 months has e [employer], gas, oil, or water [employer] threatened to shut off services in your [...] often do you attend chur ch or taoist services? 1 to 4 times per year 11/22/2023 Do you belong to any clubs o r organizations such as yarsanism groups, unions, fraternal or athletic groups, or [...] any time in the past [address] [facility], were you homeless or living [...] on file Legal Sex Female 5:21 PM GIFTS OFFICER Gender Identity Female 11/22/2023 9:01 AM CDT [...] season) 2023 09/30/2020, 05/21/2020, 04/23/2020 Influenza Vaccine (Season Ended) 2024 10/28/2019, 10/05/2018, 11/01/2017, Additional history exists Fall Risk Assessment 11/24/2024 11/25/2023 Breast Cancer Screening-Mammogram Discontinued 020, 09/17/2018 Pneumococcal vaccine 65+ Completed 020, 11/18/2015, 07/22/2013, Additional history exists Insurance MEDICARE [employer] [place] [employer] [place] Advance Directives For more information, please contact: [phone] Documents on File Type Date Recorded Patient Quality Improvement Engineer Expl anation ADVANCE DIRECTIVE 11/27/2023 12:53 PM Pow er of Vice President Medical Affairs-Medical * LIMITED - No CPR (Latest Code Status on File) Date Activated Date Inactivated Comments 11/22/2023 1:02 AM 11/25/2023 8:45 PM Care Teams Poultice Machine Operator Relationship Specialty Start Date End Date Hernesto Joshi MD [address] [address] PCP - General 06/22/16
[2024-05-21 22:50] LABS: Basophils Percent Auto 0.3 % (0.2-1.2); Eosinophils Absolute Auto 0.3 K/mm3 (0-0.3); Eosinophils Percent Auto 4.2 % (0-4.4); Hematocrit 28.4 % (37.0-47.0); Hemoglobin 8.5 g/dL (12.0-15.0); Immature Granulocyte Absolute 0.02 K/mm3 (0.00-0.031); Immature Granulocyte Percent A 0.3 % (0-0.5); Lymphocytes Absolute Auto 0.75 K/mm3 (0.9-3.2); Lymphocytes Percent Auto 11.3 % (18.3-44.2); Mean Corpuscular HGB Conc 29.9 g/dl (32-36); Mean Corpuscular Hemoglobin 30.4 pg (26-34); Mean Corpuscular Volume 101.4 fl (80-100); Mean Platelet Volume 10.3 fl (7.4-10.4); Monocytes Absolute Auto 0.5 K/mm3 (0.1-0.6); Monocytes Percent Auto 7.1 % (2.6-8.5); Neutrophils Absolute Auto 5.1 K/mm3 (1.3-6.7); Neutrophils Percent Auto 76.8 % (45.5-73.1); Platelet Count Result 194 k/mm3 (150-375); Red Cell Distribution Width 15.5 % (11.5-14.5); White Blood Count 6.6 K/mm3 (4.5-10.0)
[2024-05-21 22:52] LABS: Add Urine Microscopic? NO; Appearance Urine Clear (Clear); Bilirubin Urine Negative (Negative); Blood Urine Negative (Negative); Color Urine Yellow (Yellow); Glucose Urine UA Negative (Negative); Ketones Urine Negative (Negative); Leukocyte Esterase Ur Negative LEU/UL (Negative); Nitrate Urine Negative (Negative); Protein Urine Negative (Negative); Specific Grav Ur 1.019 (1.001-1.035); Urobilinogen Urine 0.2 mg/dL (<2.0)
[2024-05-21 23:02] LABS: Acetaminophen < 10 ug/mL (10-30); Alanine Aminotransferase 18 U/L (6-35); Albumin Level 3.4 g/dL (3.5-5.1); Alkaline Phosphatase 97 U/L (38-126); Anion Gap 3 mmol/L (4-12); Aspartate Amino Transferase 19 U/L (14-36); Bilirubin,Total 0.2 mg/dL (0.2-1.3); Blood Urea Nitrogen 35 mg/dL (7-17); Calcium 11.1 mg/dL (8.4-10.2); Carbon Dioxide 36 mmol/L (22-30); Chloride 101 mmol/L (98-107); Creatine Kinase < 20 U/L (30-135); Estimated Glomerular Filt Rate 40; Ethanol < 10 mg/dL (<10); Glucose 121 mg/dL (65-110); Salicylate < 1.0 mg/dL (2-20); Sodium 140 mmol/L (137-145)
[2024-05-21 23:07] LABS: Amphetamine Screen Urine Negative (Negative); Barbiturate Screen Urine Negative (Negative); Benzodiazepines Screen Urine Negative (Negative); Cannabinoid Screen Urine Negative (Negative); Cocaine Screen Urine Negative (Negative); Methadone Screen Urine Negative (Negative); Opiate Screen Urine Negative (Negative); Phencyclidine Screen Urine Negative (Negative)
[2024-05-21 23:10] LABS: Anisocytosis 1+; Band Neutrophils Percent 0 % (0-6); Ovalocytes 1+; Platelet Estimate Adequate (Adequate); Schistocytes None Seen
[2024-05-21 23:18] LABS: Prothrombin Time 13.5 Seconds (11.1-14.7)
--- NOTE | 2024-05-21 23:30 | ED.AMS ---
HPI - Altered Mental Status General Chief Complaint: Altered Mental Status Stated Complaint: AMS, MULTIPLE C/O Time Seen by Provider: 05/21/24 21:52 Source: patient and family Mode of arrival: EMS Limitations: no limitations History of Present Illness HPI narrative: This is a 78-year-old female, with history of dementia hypertension, brought in by EMS from home a for increasing altered mental status and falls. EMS reports family has noted the patient has become more confused lately and has had increasing number falls. They noticed foul-smelling urine and increased urinary incontinence. On arrival, EMS noted the patient was incontinent of bowel and bladder. The patient states she has had some increased urination on and pain but has no other complaints at this time. Related Data Home Medications ?Medication ?Instructions ?Recorded ?Confirmed ?Last Taken ?Type aspirin 81 mg tablet,delayed 81 mg PO DAILY 01/03/19 05/22/24 03/11/24 History release (Ian Low Dose Aspirin) pfnmoufy-mxqrvbh-jgje-lutein tablet 1 tablet PO DAILY 06/04/19 05/22/24 03/11/24 History cholecalciferol (vitamin D3) 25 25 mcg PO DAILY 05/12/21 05/22/24 03/11/24 History mcg (1,000 unit) capsule vit C 250 mg-vit E 90 mg-zinc 40 1 tablet PO BID 06/30/22 05/22/24 03/11/24 History mg-copper 1 az-pjycma-xvglkb capsule (PreserVision AREDS-2) anastrozole 1 mg tablet 1 mg PO DAILY 07/14/22 05/22/24 03/11/24 History ipratropium 0.5 mg-albuterol 3 mg 3 ml inhalation BID 11/09/22 05/22/24 11/09/22 History (2.5 mg base)/3 mL nebulization soln ascorbate calcium (vitamin C) 500 500 mg PO DAILY 12/29/22 05/22/24 03/11/24 History mg tablet ferrous sulfate 325 mg (65 mg 650 mg PO DAILY 12/29/22 05/22/24 03/11/24 History iron) tablet (FeroSul) palbociclib 100 mg capsule 100 mg PO DAILY 07/18/23 05/22/24 Unknown History (Ibrance) acetaminophen 500 mg tablet 1,000 mg PO BID pain 03/11/24 05/22/24 05/15/24 History cholestyramine-aspartame 4 gram 1 ea PO TIDWM PRN IBS 03/11/24 05/22/24 Unknown History oral powder for susp in a packet (Prevalite) roflumilast 250 mcg tablet 250 mcg PO EVERY OTHER DAY 05/22/24 05/22/24 Unknown History (Daliresp) varenicline tartrate 0.03 mg/spray 1 spray intranasal DAILY 05/22/24 05/22/24 Unknown History metered nasal spray (Tyrvaya) vitamin B complex 1 tablet PO DAILY 05/22/24 05/22/24 Unknown History Allergies Allergy/AdvReac Type Severity Reaction Status Date / Time bupropion (From Wellbutrin) Allergy Intermediate Rash Verified 05/14/24 09:10 adhesive tape Allergy Unknown BLISTERS Verified 04/30/24 12:13 Bleach (Sodium Hypochlorite) Allergy Unknown Itching Verified 04/30/24 12:13 benzocaine (From Tigan (with AdvReac Unknown Unknown Verified 04/30/24 12:13 benzocaine)) trimethobenzamide AdvReac Unknown N/V Verified 04/30/24 12:13 nickel AdvReac Itching Verified 04/30/24 12:13 Review of Systems Review of Systems: All systems reviewed & are unremarkable except as noted in HPI and below PMFSH Past Medical History Medical History Pleural effusion Chronic renal insufficiency, stage III (moderate) Pneumonia PVD (peripheral vascular disease) Colon polyp Psoriatic arthritis Dependence on continuous supplemental oxygen Other specified counseling GERD (gastroesophageal reflux disease) Tobacco abuse Lung cancer Encounter for medication management Neuropathy Anxiety Arthritis Breast cancer COPD (chronic obstructive pulmonary disease) Irritable bowel disease Surgical History Surgical History S/P lumpectomy of breast History of tonsillectomy Hx of cholecystectomy History of liver biopsy H/O cataract extraction History of appendectomy History of knee replacement History of carpal tunnel release History of lung surgery Family History Family History Mother Diabetes mellitus Family history of lung cancer Family history of malignant neoplasm of uterus Family history of psoriasis Family history of malignant neoplasm Sibling Diabetes mellitus Father Family history of chronic obstructive pulmonary disease Family history of lung cancer Hypertension Family history of cardiovascular disease Grandparent Family history of malignant neoplasm of uterus Family history of coronary artery disease Social History Social History Smoking packs per day: 0.5 Smoking cigarettes per day: 10.0 Years smoked: 50 Smoking pack-years: 25.00 Smoking status: Former smoker Second hand tobacco smoke exposure: Yes Alcohol intake: never Substance use: never Substance use type: does not use Do You Feel Safe in your Home?: Yes Lack of Transportation: No Lack of Food: Never True Current Housing: I Have Housing Concerned About Future Housing: No Difficulty Paying Gas/Electric Bills: No Difficulty Paying for Meds: No Currently Unemployed: No Education: High School Diploma/GED Difficulty w/ Childcare or Family Care: No Living arrangements: with family Occupation/Education: retired Gender identity (if verbalized by the patient): Female Spiritual care concerns: No Agree to blood products: Yes Exam Narrative: GENERAL: Well-developed, well-nourished, and in no acute distress. HEAD: Normocephalic, atraumatic. EYES: PERRLA and EOMI. ENT: Nares clear, no rhinorrhea or epistaxis. Mucous membranes dry. Oropharynx without tonsillar hypertrophy exudate or other lesions. CHEST: Clear to auscultation. No respiratory distress. No wheezes rales or rhonchi HEART: Regular rate and rhythm. No murmur heard. Normal peripheral pulses. ABDOMEN: Soft, mild tenderness to palpation in the right upper quadrant, without rebound or guard, nondistended, normal active bowel sounds. EXTREMITIES: Normal range of motion. No edema. SKIN: Warm, dry, no rash. NEURO: Alert and oriented x3. No focal deficit. Moving all 4 limbs spontaneously PSYCH: Normal mood and affect. Course Course Emergency Course: 02:08 - CT head not concerning for intracranial hemorrhage, intracranial mass or skull fracture. CBC demonstrates anemia with hemoglobin of 8.5 but is otherwise unremarkable. Chemistries demonstrate COREY with creatinine of 1.29 at baseline of 1.0. Calcium elevated at 11.1. Troponin negative. TSH within normal limits. Urinalysis not concerning for urinary tract infection. Urine drug screen negative. The patient tested negative for COVID, influenza, RSV, salicylates, acetaminophen and alcohol. CT abdomen pelvis not concerning for acute intra-abdominal process to explain the patient's right upper quadrant tenderness. Chest x-ray not concerning for focal consolidation though does show mild pulmonary vascular congestion. Considering the patient's recent falls and intermittent confusion, she is not safe to be discharged home. I discussed the patient with hospitalist Dr. Canela who accepts admission. Vital Signs Vital signs: Vital Signs Temperature 98.1 F 05/21/24 21:52 Pulse Rate 87 05/21/24 21:52 Respiratory Rate 19 05/21/24 21:52 Blood Pressure 133/99 H 05/21/24 21:52 Pulse Oximetry 97 05/21/24 21:52 Oxygen Delivery Room Air 05/21/24 21:52 Temperature 98.7 F 05/22/24 03:30 Pulse Rate 80 05/22/24 04:15 Respiratory Rate 18 05/22/24 04:15 Blood Pressure 154/69 H 05/22/24 03:30 Pulse Oximetry 93 05/22/24 04:15 Oxygen Delivery Nasal Cannula 05/22/24 04:15 Oxygen Flow Rate 4 05/22/24 04:15 MDM - Altered Mental Status MDM Narrative Medical decision making narrative: Plan: Labs, imaging, pain control, reassess Differential Diagnosis Differential diagnosis: Likely dementia, hypoglycemia, hyponatremia and other (Intracranial hemorrhage, diverticulitis, pancreatitis, GERD, bowel obstruction, urinary tract infection, drug/alcohol intoxication, metabolic abnormality, other) Lab Data 05/21/24 22:42 05/21/24 22:42 Labs: Lab Results 05/21/24 05/22/24 Range/Units 22:42 01:57 WBC 6.6 (4.5-10.0) K/mm3 RBC 2.80 L (4.2-5.4) M/mm3 Hgb 8.5 L (12.0-15.0) g/dL Hct 28.4 L (37.0-47.0) % MCV 101.4 H (80-100) fl MCH 30.4 (26-34) pg MCHC 29.9 L (32-36) g/dl RDW 15.5 H (11.5-14.5) % Plt Count 194 (150-375) k/mm3 MPV 10.3 (7.4-10.4) fl Immature Gran % (Auto) 0.3 (0-0.5) % Neut % (Auto) 76.8 H (45.5-73.1) % Lymph % (Auto) 11.3 L (18.3-44.2) % [place] % (Auto) 7.1 (2.6-8.5) % Eos % (Auto) 4.2 (0-4.4) % Baso % (Auto) 0.3 (0.2-1.2) % Lymph # (Auto) 0.75 L (0.9-3.2) K/mm3 [place] # (Auto) 0.5 (0.1-0.6) K/mm3 Eos # (Auto) 0.3 (0-0.3) K/mm3 Baso # (Auto) 0.0 (0.0-0.1) K/mm3 Abs Immat Gran (auto) 0.02 (0.00-0.031) K/mm3 Absolute Neuts (auto) 5.1 (1.3-6.7) K/mm3 Absolute Nucleated RBC 0.000 (0.0-0.012) K/mm3 Band Neutrophils % 0 (0-6) % Nucleated RBC % 0.0 (0.0-0.2) % Platelet Estimate Adequate (Adequate) Anisocytosis 1+ Ovalocytes 1+ Schistocytes None seen PT 13.5 (11.1-14.7) Seconds INR 1.0 Sodium 140 (137-145) mmol/L Potassium 4.0 (3.4-5.0) mmol/L Chloride 101 (98-107) mmol/L Carbon Dioxide 36 H (22-30) mmol/L Anion Gap 3 L (4-12) mmol/L BUN 35 H D (7-17) mg/dL Creatinine 1.29 H (0.7-1.0) mg/dL Estim Creat Clear Calc Not Reportable Estimated GFR 40 L (59 - ) Glucose 121 H (65-110) mg/dL Lactic Acid 1.0 (0.7-2.0) mmol/L Calcium 11.1 H (8.4-10.2) mg/dL Total Bilirubin 0.2 (0.2-1.3) mg/dL AST 19 (14-36) U/L ALT 18 (6-35) U/L Alkaline Phosphatase 97 (38-126) U/L Total Creatine Kinase < 20 L (30-135) U/L Troponin I < 0.012 (0.000-0.034) ng/mL Total Protein 6.0 L (6.3-8.2) g/dL Albumin 3.4 L (3.5-5.1) g/dL TSH 1.790 (0.465-4.680) uIU/mL Urine Color Yellow (Yellow) Urine Appearance Clear (Clear) Urine pH 5.0 (5.0-9.0) Ur Specific [place] 1.019 (1.001-1.035) Urine Protein Negative (Negative) mg/dL Urine Glucose (UA) Negative (Negative) mg/dL Urine Ketones Negative (Negative) mg/dL Ur Blood (Man) Negative (Negative) Urine Nitrate Negative (Negative) Urine Bilirubin Negative (Negative) Urine Urobilinogen 0.2 (<2.0) mg/dL Leukocyte Esterase Rfl Negative (Negative) RAMBO/UL Salicylates < 1.0 L (2-20) mg/dL Urine Opiates Screen Negative (Negative) Urine Methadone Screen Negative (Negative) Acetaminophen < 10 L (10-30) ug/mL Ur Barbiturates Screen Negative (Negative) Ur Phencyclidine Scrn Negative (Negative) Ur Amphetamine Screen Negative (Negative) U Benzodiazepines Scrn Negative (Negative) Urine Cocaine Screen Negative (Negative) U Cannabinoids Screen Negative (Negative) Ethyl Alcohol < 10 (<10) mg/dL Influenza A (RT-PCR) Negative (Negative) Influenza B (RT-PCR) Negative (Negative) RSV (RT-PCR) Negative (Negative) SARS-CoV-2 RNA (RT-PCR) Negative (Negative) Discharge Plan Discharge Clinical Impression: COREY (acute kidney injury), Hypercalcemia Patient Disposition: Still a Patient Condition: Stable Time of Disposition: 02:08
[2024-05-21 23:36] LABS: Troponin I < 0.012 ng/mL (0.000-0.034)
[2024-05-21] MEDS: SODIUM CHLORIDE 0.9% IV 1,000 ML 999 ML IV CONT (23:42)
[2024-05-22] VITALS (10 sets, daily range): BP systolic 125–154; BP diastolic 60–78; PULSE 62–80; RESP 14–20; TEMP 36.3–37.1; O2SAT 93–96; BMI 31.2
[2024-05-22 02:37] LABS: Influenza A QL RT-PCR Negative (Negative); Influenza B QL RT-PCR Negative (Negative); RSV RNA, RT-PCR Negative (Negative); SARS-CoV-2 RNA PCR Negative (Negative)
[2024-05-22] MEDS: ACETAMINOPHEN 325 MG TABLET 650 MG PO ×2 (04:00→22:06)
--- NOTE | 2024-05-22 04:03 | ADMGEN ---
This patient, May, was admitted to 3 [facility] Surg Room 301-01. Patient/family oriented to hospital policies and general routines including ID bracelet, bed and alarms, visiting hours, pain management, procedures, bathroom and other care routines, personal items, smoking policy, room service/diet, and visiting hours. Information on how to activate the Rapid Response Team has been discussed. Patient/Family are encouraged to report perceived risks to care and to ask questions if they do not understand what they are told or what they should do.
--- NOTE | 2024-05-22 06:19 | PM.IMHP ---
H&P: HPI History of Present Illness Date/Time: 05/22/24 06:19 Chief Complaint: 1. Confusion 2. Visual hallucinations Narrative: May Deathraghu is a 78 F with a medical history significant for chronic hypoxia, COPD, tobacco dependence, depression, hypertension, While she resides at home and self dependent, hours prior to admission multiple attempts to reach her to check on her well-being failed. With family members arrived at her home she was found to be confused, slouched over on the couch in overwhelming fatigue and visually hallucinating. With no known modifying factors to her symptoms, it was associated with poor history as to the events surrounding her day prior to the moment, anorexia and a restriction of her usual ADLs. There were no records of fevers, nausea/vomiting, changes in bowel/bladder habits, dizziness, chest pain or LOC; the patient claims she has been experiencing vivid dreams lately So she has a prolonged smoking history she quit about a month ago; Work-up findings: Vital signs: Unremarkable At bedside, said to be better from initial presentation per son WBC 6.6; HGB 8.5; MCV 101; PLT 194 INR 1; PTT 13.5 Na 140; K 4; Cl 101; CO2 26; ATG 3; BUN 35; CR 1.29; GFR [address] head: No acute intracranial hemorrhage or suspicious mass effect. CTAP: Unremarkable T. bilirubin 0.2; AST 19; ALT 18; ALP 97 TSH: Pending; troponin I pending UA unremarkable May Deathraghu will be admitted, evaluated, and managed for acute metabolic encephalopathy with physical deconditioning Review of Systems Review of Systems: All systems reviewed & are unremarkable except as noted in HPI and below PMFSH Past Medical History Medical History Pleural effusion Chronic renal insufficiency, stage III (moderate) Pneumonia PVD (peripheral vascular disease) Colon polyp Psoriatic arthritis Dependence on continuous supplemental oxygen Other specified counseling GERD (gastroesophageal reflux disease) Tobacco abuse Lung cancer Encounter for medication management Neuropathy Anxiety Arthritis Breast cancer COPD (chronic obstructive pulmonary disease) Irritable bowel disease Surgical History Surgical History S/P lumpectomy of breast History of tonsillectomy Hx of cholecystectomy History of liver biopsy H/O cataract extraction History of appendectomy History of knee replacement History of carpal tunnel release History of lung surgery Family History Family History Mother Diabetes mellitus Family history of lung cancer Family history of malignant neoplasm of uterus Family history of psoriasis Family history of malignant neoplasm Sibling Diabetes mellitus Father Family history of chronic obstructive pulmonary disease Family history of lung cancer Hypertension Family history of cardiovascular disease Grandparent Family history of malignant neoplasm of uterus Family history of coronary artery disease Social History Social History Smoking packs per day: 0.5 Smoking cigarettes per day: 10.0 Years smoked: 50 Smoking pack-years: 25.00 Smoking status: Former smoker Second hand tobacco smoke exposure: Yes Alcohol intake: never Substance use: never Substance use type: does not use Do You Feel Safe in your Home?: Yes Lack of Transportation: No Lack of Food: Never True Current Housing: I Have Housing Concerned About Future Housing: No Difficulty Paying Gas/Electric Bills: No Difficulty Paying for Meds: No Currently Unemployed: No Education: High School Diploma/GED Difficulty w/ Childcare or Family Care: No Living arrangements: with family Occupation/Education: retired Gender identity (if verbalized by the patient): Female Spiritual care concerns: No Agree to blood products: Yes Meds Home Medications and Allergies Home Medications ?Medication ?Instructions ?Recorded ?Confirmed ?Type aspirin 81 mg tablet,delayed 81 mg PO DAILY 01/03/19 05/22/24 History release (Ian Low Dose Aspirin) weasvfeu-syzwwye-vfed-lutein tablet 1 tablet PO DAILY 06/04/19 05/22/24 History cholecalciferol (vitamin D3) 25 25 mcg PO DAILY 05/12/21 05/22/24 History mcg (1,000 unit) capsule vit C 250 mg-vit E 90 mg-zinc 40 1 tablet PO BID 06/30/22 05/22/24 History mg-copper 1 xp-gzbnro-axlcbo capsule (PreserVision AREDS-2) anastrozole 1 mg tablet 1 mg PO DAILY 07/14/22 05/22/24 History ipratropium 0.5 mg-albuterol 3 mg 3 ml inhalation BID 11/09/22 05/22/24 History (2.5 mg base)/3 mL nebulization soln ascorbate calcium (vitamin C) 500 500 mg PO DAILY 12/29/22 05/22/24 History mg tablet ferrous sulfate 325 mg (65 mg 650 mg PO DAILY 12/29/22 05/22/24 History iron) tablet (FeroSul) budesonide 160 mcg-glycopyr 9 See Rx Instructions .Route 04/11/23 05/22/24 Rx mcg-formot 4.8 mcg/actuation HFA .COMPLEX #10.7 grams inhaler (Breztri Aerosphere) lisinopril 10 mg tablet 10 mg PO DAILY #90 tabs 05/19/23 05/22/24 Rx ixekizumab 80 mg/mL subcutaneous See Rx Instructions .Route 06/22/23 05/22/24 Rx auto-injector (Taltz Autoinjector) .COMPLEX #3 mL palbociclib 100 mg capsule 100 mg PO DAILY 07/18/23 05/22/24 History (Ibrance) pregabalin 150 mg capsule 150 mg PO DAILY #90 caps 09/13/23 05/22/24 Rx folic acid 1 mg tablet 1 mg PO DAILY #90 tabs 01/26/24 05/22/24 Rx acetaminophen 500 mg tablet 1,000 mg PO BID pain 03/11/24 05/22/24 History cholestyramine-aspartame 4 gram 1 ea PO TIDWM PRN IBS 03/11/24 05/22/24 History oral powder for susp in a packet (Prevalite) duloxetine 30 mg capsule,delayed 30 mg PO DAILY #30 caps 03/18/24 05/22/24 Rx release quetiapine 25 mg tablet 25 mg PO QHS #90 tabs 04/15/24 05/22/24 Rx roflumilast 250 mcg tablet 250 mcg PO EVERY OTHER DAY 05/22/24 05/22/24 History (Daliresp) varenicline tartrate 0.03 mg/spray 1 spray intranasal DAILY 05/22/24 05/22/24 History metered nasal spray (Tyrvaya) vitamin B complex 1 tablet PO DAILY 05/22/24 05/22/24 History Allergies Allergy/AdvReac Type Severity Reaction Status Date / Time bupropion (From Wellbutrin) Allergy Intermediate Rash Verified 05/14/24 09:10 adhesive tape Allergy Unknown BLISTERS Verified 04/30/24 12:13 Bleach (Sodium Hypochlorite) Allergy Unknown Itching Verified 04/30/24 12:13 [facility] Unknown Unknown Verified 04/30/24 12:13 benzocaine)) trimethobenzamide AdvReac Unknown N/V Verified 04/30/24 12:13 nickel AdvReac Itching Verified 04/30/24 12:13 Vital Signs Vital Signs - 24 hr 05/21/24 21:52 05/21/24 22:09 05/21/24 22:09 Temperature 98.1 F 98.1 F Pulse Rate 87 87 86 Respiratory Rate 19 22 H Blood Pressure 133/99 H 133/99 H Pulse Oximetry 97 98 Oxygen Delivery Room Air Oxygen Flow Rate 05/21/24 22:11 05/22/24 03:30 05/22/24 04:15 Temperature 98.7 F Pulse Rate 80 80 Respiratory Rate 18 18 Blood Pressure 154/69 H Pulse Oximetry 99 93 93 Oxygen Delivery Nasal Cannula Nasal Cannula Oxygen Flow Rate 4 4 Exam Const: General: no acute distress HENMT: Ears: TM's normal bilaterally Eyes: General: appearance normal, both eyes and all related structures Sclera: sclerae normal Pupils: Equal, round and reactive pupils present EOM: EOMs intact bilaterally Neck: Neck: supple Resp: Effort & Inspection: normal respiratory effort Auscultation: no crackles, no rales, no rhonchi and diminished lung sounds bilateral Cardio: Rate: regular rate Rhythm: regular rhythm Skin: General skin exam: normal color Neuro: Speech: normal speech Motor exam (neuro): Abnormal motor strength present (Reduced upper body) Extrem: General: normal to inspection Psych: Mental Status: mental status grossly normal Affect: Anxious affect present H&P: Results Labs Labs: Short CBC 05/21/24 Range/Units 22:42 WBC 6.6 (4.5-10.0) K/mm3 Hgb 8.5 L (12.0-15.0) g/dL Hct 28.4 L (37.0-47.0) % Plt Count 194 (150-375) k/mm3 [facility] 05/21/24 22:42 Sodium 140 Potassium 4.0 Chloride 101 Carbon Dioxide 36 H BUN 35 H D Creatinine 1.29 H Glucose 121 H Calcium 11.1 H Cardiac Enzymes 05/21/24 Range/Units 22:42 Total Creatine Kinase < 20 L (30-135) U/L Troponin I < 0.012 (0.000-0.034) ng/mL Liver Function 05/21/24 Range/Units 22:42 Total Bilirubin 0.2 (0.2-1.3) mg/dL AST 19 (14-36) U/L ALT 18 (6-35) U/L Alkaline Phosphatase 97 (38-126) U/L Albumin 3.4 L (3.5-5.1) g/dL Urine 05/21/24 Range/Units 22:42 Urine Color Yellow (Yellow) Urine Appearance Clear (Clear) Urine pH 5.0 (5.0-9.0) Ur Specific [place] 1.019 (1.001-1.035) Urine Protein Negative (Negative) mg/dL Urine Glucose (UA) Negative (Negative) mg/dL Assessment and Plan Assessment and plan (1) Acute encephalopathy: Code(s): G93.40 - Encephalopathy, unspecified Status: Acute Plan Acute and principal conditions 1. Acute encephalopathy. Probably metabolic with polypharmacy 2. Acute renal insufficiency 3. Probable COPD exacerbation Rx: A. VBG, Ammonia B. Falls and safety precautions C. PT eval and Rx D. Monitor changes whle on Gabapentin; may need to reduce doses of Rx at DC E. Monitor renal function; avoid nephrotoxins Chronic and stable conditions 1. Breast Ca. on Anastrozole 2. Lung ca. s/p Lobectomy 3. Prolonged smoking history. Quit week ago 4. COPD. 5. Hypertension. 6. DAYA. 7. Mood disorder. On Buspirone, Quetiapine Miscellaneous care. 1. Code status. Full 2. Nutrition. Heart healthy 3. VTE prophylaxis. ON Hospitalist [facility] Advance Care Plan I have confirmed that the patient's Advanced Care Plan is present, code status is documented, or surrogate decision maker is listed in patient medical record.: Yes Medication Reconciliation I have utilized all available resources to obtain, update and review the patients current medications (includes all prescriptions, OTC, herbals, cannabis, and nutritional supplements).: Yes The patient is not eligible for med reconciliation; the patient is in a emergent medical situation where delaying treatment would jeopardize the patients health.: Yes
[2024-05-22] MEDS: DEXTROSE 5%/0.9% SOD CHL 1,000 ML 100 ML IV CONT (06:33)
[2024-05-22 06:48] LABS: Fractional Inspired Oxygen 36 %; HCO3 VBG 30.5 mEq/l (24.0-30.0); PCO2 VBG 50.7 mmHg (42.0-48.0); PO2 VBG 86.9 mmHg (35.0-45.0); pH VBG 7.397 (7.300-7.400)
[2024-05-22 06:51] LABS: Device NASAL CANNULA
[2024-05-22 06:56] LABS: Ammonia < 9 umol/L (9-30)
[2024-05-22] MEDS: IPRATROPIUM 0.5 MG/ALBUTEROL SULFATE 2.5 MG AMPUL.NEB 3 ML INHALATION (08:09)
[2024-05-22] MEDS: FLUTICASONE/UMECLIDIN/VILANTER 100-62.5-25 MCG ELLIPTA 1 PUFF INHALATION (08:18)
[2024-05-22 08:24] LABS: Basophils Percent Auto 0.5 % (0.2-1.2); Eosinophils Absolute Auto 0.3 K/mm3 (0-0.3); Eosinophils Percent Auto 4.6 % (0-4.4); Hematocrit 27.1 % (37.0-47.0); Immature Granulocyte Absolute 0.03 K/mm3 (0.00-0.031); Immature Granulocyte Percent A 0.5 % (0-0.5); Lymphocytes Absolute Auto 0.75 K/mm3 (0.9-3.2); Lymphocytes Percent Auto 12.2 % (18.3-44.2); Mean Corpuscular HGB Conc 29.5 g/dl (32-36); Mean Corpuscular Hemoglobin 30.3 pg (26-34); Mean Corpuscular Volume 102.7 fl (80-100); Mean Platelet Volume 10.7 fl (7.4-10.4); Monocytes Absolute Auto 0.5 K/mm3 (0.1-0.6); Monocytes Percent Auto 8.3 % (2.6-8.5); Neutrophils Absolute Auto 4.5 K/mm3 (1.3-6.7); Neutrophils Percent Auto 73.9 % (45.5-73.1); Platelet Count Result 175 k/mm3 (150-375); Red Blood Count 2.64 M/mm3 (4.2-5.4); Red Cell Distribution Width 15.4 % (11.5-14.5); White Blood Count 6.1 K/mm3 (4.5-10.0)
[2024-05-22] MEDS: FERROUS SULFATE 325 MG TABLET DR BY MOUTH ×2 (08:35→17:18)
[2024-05-22] MEDS: HEPARIN SODIUM 5,000 UNITS/ML VIAL 5000 UNITS SUB-Q ×2 (08:35→22:06)
[2024-05-22] MEDS: ASPIRIN 81 MG ENTERIC TABLET PO (08:35)
[2024-05-22] MEDS: PREGABALIN (*CRX) 75 MG CAPSULE 150 MG PO (08:35)
[2024-05-22] MEDS: ANASTROZOLE (*CHEMO) 1 MG TABLET PO (08:35)
[2024-05-22] MEDS: DULoxetine HCL 30 MG CAPSULE.DR PO (08:35)
[2024-05-22 08:46] LABS: Alanine Aminotransferase 18 U/L (6-35); Albumin Level 3.2 g/dL (3.5-5.1); Alkaline Phosphatase 86 U/L (38-126); Anion Gap 3 mmol/L (4-12); Aspartate Amino Transferase 22 U/L (14-36); Bilirubin,Total 0.3 mg/dL (0.2-1.3); Blood Urea Nitrogen 28 mg/dL (7-17); Calcium 10.3 mg/dL (8.4-10.2); Carbon Dioxide 35 mmol/L (22-30); Chloride 103 mmol/L (98-107); Estimated CRCL calculation 39 ml/min; Estimated Glomerular Filt Rate 48; Glucose 111 mg/dL (65-110); Magnesium 1.9 mg/dL (1.6-2.3); Potassium 3.9 mmol/L (3.4-5.0); Sodium 141 mmol/L (137-145)
[2024-05-22 09:25] LABS: Macrocytosis 1+ (NORMAL); Ovalocytes 1+; Platelet Estimate Adequate (Adequate); Schistocytes None Seen
--- NOTE | 2024-05-22 10:29 | P.PNIM_ITS ---
Progress Note: A&P Assessment and Plan (1) Acute encephalopathy: Code(s): G93.40 - Encephalopathy, unspecified Status: Acute Assessment and Plan: * Acute encephalopathy. Probably metabolic with polypharmacy. * Ammonia <9. (2) COPD (chronic obstructive pulmonary disease): Code(s): J44.9 - Chronic obstructive pulmonary disease, unspecified Status: Acute Assessment and Plan: * Home oxygen 4 liters nasal cannula at rest and 6 liters nasal cannula with activity. * Per family member patient quit smoking 6 weeks ago. * Patient reports normally using her nebulizer once daily. * Trelegy 1 puff daily. * Duoneb q 12 PRN. (3) Weakness: Code(s): R53.1 - Weakness Status: Acute Assessment and Plan: * PT/OT * Fall precautions. (4) COREY (acute kidney injury): Code(s): N17.9 - Acute kidney failure, unspecified Status: Acute Assessment and Plan: * Creatinine 1.29 on admission, improving. Currently 1.10. * Patient received D5NS @ 100 ml/hr overnight. * Encourage oral intake. * Trend labs. * Avoid nephrotoxins. Plan Chronic and stable conditions 1. Breast Ca. on Anastrozole 2. Lung ca. s/p Lobectomy 3. Prolonged smoking history. Quit week ago 4. COPD. 5. Hypertension. 6. DAYA. 7. Mood disorder. On Buspirone, Quetiapine Miscellaneous care. 1. Code status. Full 2. Nutrition. Heart healthy 3. VTE prophylaxis. ON Subjective Date/time seen: 05/22/24 10:29 Interval history: Patient lying in bed with head of bed elevated. Family at bedside. Patient denies chest pain, palpitations, headache, dizziness, nausea, or vomiting. Review of Systems Review of Systems: All systems reviewed & are unremarkable except as noted in HPI and below Exam Const: General: comfortable and no acute distress Resp: Effort & Inspection: normal respiratory effort Auscultation: diminished lung sounds Cardio: Rate: regular rate Rhythm: regular rhythm GI: GI Palp: Yes Soft to palpation Auscultation: normal bowel sounds Neuro: Speech: normal speech Extrem: General: no pedal edema Psych: Mental Status: mental status grossly normal Affect: normal affect Objective Data Vital Signs Vital Signs: Vital Signs - 24 hr 05/21/24 21:52 05/21/24 22:09 05/21/24 22:09 Temperature 98.1 F 98.1 F Pulse Rate 87 87 86 Respiratory Rate 19 22 H Blood Pressure 133/99 H 133/99 H Pulse Oximetry 97 98 Oxygen Delivery Room Air Oxygen Flow Rate 05/21/24 22:11 05/22/24 03:30 05/22/24 04:15 Temperature 98.7 F Pulse Rate 80 80 Respiratory Rate 18 18 Blood Pressure 154/69 H Pulse Oximetry 99 93 93 Oxygen Delivery Nasal Cannula Nasal Cannula Oxygen Flow Rate 4 4 05/22/24 08:00 05/22/24 08:10 05/22/24 08:10 Temperature Pulse Rate 65 Respiratory Rate 20 Blood Pressure Pulse Oximetry 96 96 Oxygen Delivery Nasal Cannula Nasal Cannula Oxygen Flow Rate 4 4 05/22/24 08:19 Temperature Pulse Rate 62 Respiratory Rate 20 Blood Pressure Pulse Oximetry Oxygen Delivery Oxygen Flow Rate Intake/Output Intake/Output: Intake & Output 05/19/24 05/20/24 05/21/24 05/22/24 23:59 23:59 23:59 23:59 Intake Total 1390 Output Total 50 Balance -50 1390 Meds/Results Medications: Active Medications Generic Name Dose Route Start Last Admin Trade Name Freq PRN Reason Stop Dose Admin Acetaminophen 650 mg 05/22/24 06:17 Acetaminophen 325 Mg Tablet PO Q4H PRN Mild Pain (1-3) or Fever Albuterol/Ipratropium 3 ml 05/22/24 08:00 05/22/24 08:09 Ipratropium 0.5 Mg/Albuterol Sulfate 2.5 Mg Ampul.Neb 3 Ml INHALATION 3 ml Q12HRT GIA Administration Anastrozole 1 mg 05/22/24 09:00 05/22/24 08:35 Anastrozole (*Chemo) 1 Mg Tablet PO 1 mg DAILY GIA Administration Aspirin 81 mg 05/22/24 09:00 05/22/24 08:35 Aspirin 81 Mg Enteric Tablet PO 81 mg DAILY GIA Administration Duloxetine HCl 30 mg 05/22/24 09:00 05/22/24 08:35 Duloxetine Hcl 30 Mg Capsule.Dr PO 30 mg DAILY GIA Administration Ferrous Sulfate 325 mg 05/22/24 09:00 05/22/24 08:35 Ferrous Sulfate [address] BY MOUTH 325 mg BID GIA Administration Fluticasone/Umeclidinium/Vilanterol 1 puff 05/22/24 08:00 05/22/24 08:18 Fluticasone/Umeclidin/Vilanter 100-62.5-25 Mcg Ellipta INHALATION 1 puff DAILYRT GIA Administration Heparin Sodium (Porcine) 5,000 units 05/22/24 09:00 05/22/24 08:35 Heparin Sodium 5,000 Units/Ml Vial SUB-Q 5,000 units Q12HR GIA Administration Dextrose/Sodium Chloride 1,000 mls @ 100 mls/hr 05/22/24 06:20 05/22/24 06:33 Dextrose 5% Sodium Chloride 0.9% IV CONT 100 mls/hr .Q10H GIA Administration Melatonin 5 mg 05/22/24 06:17 Melatonin 5 Mg Tablet PO HS PRN Insomnia Miscellaneous Information 1 each 05/22/24 00:01 Last Dose Of Roflumilast? Instructions Are Every Other Day. External Indicates Patients [place] XX 06/21/24 00:00 CL[facility]IFY [facility] Pregabalin 150 mg 05/22/24 09:00 05/22/24 08:35 Pregabalin (*Crx) 75 Mg Capsule PO 150 mg DAILY GIA Administration Prochlorperazine Edisylate 10 mg 05/22/24 06:17 Prochlorperazine Edisylate 10 Mg/2 Ml Vial IV PUSH Q6H PRN Nausea And Vomiting Quetiapine Fumarate 25 mg 05/22/24 21:00 Quetiapine Fumarate 25 Mg Tablet PO QHS GIA Roflumilast 250 mcg 05/22/24 06:25 Roflumilast 250 Mcg Tablet PO EVERY OTHER DAY [facility] Radiology Results: ITS Impressions Chest X-Ray 05/21/24 23:14 IMPRESSION: Mild pulmonary vascular congestion with interstitial thickening and increased opacification of the left mid to lower lung field, likely secondary to overlying soft tissue. Head CT 05/22/24 00:08 Impression: No acute intracranial hemorrhage or suspicious mass effect. Abdomen/Pelvis CT 05/22/24 00:11 IMPRESSION: No acute findings within the abdomen or pelvis to account for patient's abdominal pain. Innumerable nonacute findings, as detailed above. Labs Labs: Laboratory Results - last 24 hr 05/21/24 05/22/24 05/22/24 22:42 01:57 06:37 WBC 6.6 RBC 2.80 L Hgb 8.5 L Hct 28.4 L MCV 101.4 H MCH 30.4 MCHC 29.9 L RDW 15.5 H Plt Count 194 MPV 10.3 Immature Gran % (Auto) 0.3 Neut % (Auto) 76.8 H Lymph % (Auto) 11.3 L [place] % (Auto) 7.1 Eos % (Auto) 4.2 Baso % (Auto) 0.3 Lymph # (Auto) 0.75 L [place] # (Auto) 0.5 Eos # (Auto) 0.3 Baso # (Auto) 0.0 Abs Immat Gran (auto) 0.02 Absolute Neuts (auto) 5.1 Absolute Nucleated RBC 0.000 Band Neutrophils % 0 Nucleated RBC % 0.0 Platelet Estimate Adequate Anisocytosis 1+ Macrocytosis Ovalocytes 1+ Schistocytes None seen PT 13.5 INR 1.0 VBG pH VBG pCO2 VBG pO2 VBG HCO3 O2 Delivery Device O2 Liters/Min FiO2 Sodium 140 Potassium 4.0 Chloride 101 Carbon Dioxide 36 H Anion Gap 3 L BUN 35 H D Creatinine 1.29 H Estim Creat Clear Calc Not Reportable Estimated GFR 40 L Glucose 121 H Lactic Acid 1.0 Calcium 11.1 H Magnesium Total Bilirubin 0.2 AST 19 ALT 18 Alkaline Phosphatase 97 Ammonia < 9 L Total Creatine Kinase < 20 L Troponin I < 0.012 Total Protein 6.0 L Albumin 3.4 L TSH 1.790 Urine Color Yellow Urine Appearance Clear Urine pH 5.0 Ur Specific [place] 1.019 Urine Protein Negative Urine Glucose (UA) Negative Urine Ketones Negative Ur Blood (Man) Negative Urine Nitrate Negative Urine Bilirubin Negative Urine Urobilinogen 0.2 Leukocyte Esterase Rfl Negative Salicylates < 1.0 L Urine Opiates Screen Negative Urine Methadone Screen Negative Acetaminophen < 10 L Ur Barbiturates Screen Negative Ur Phencyclidine Scrn Negative Ur Amphetamine Screen Negative U Benzodiazepines Scrn Negative Urine Cocaine Screen Negative U Cannabinoids Screen Negative Ethyl Alcohol < 10 Influenza A (RT-PCR) Negative Influenza B (RT-PCR) Negative RSV (RT-PCR) Negative SARS-CoV-2 RNA (RT-PCR) Negative 05/22/24 05/22/24 06:39 08:18 WBC 6.1 RBC 2.64 L Hgb 8.0 L Hct 27.1 L MCV 102.7 H MCH 30.3 MCHC 29.5 L RDW 15.4 H Plt Count 175 MPV 10.7 H Immature Gran % (Auto) 0.5 Neut % (Auto) 73.9 H Lymph % (Auto) 12.2 L [place] % (Auto) 8.3 Eos % (Auto) 4.6 H Baso % (Auto) 0.5 Lymph # (Auto) 0.75 L [place] # (Auto) 0.5 Eos # (Auto) 0.3 Baso # (Auto) 0.0 Abs Immat Gran (auto) 0.03 Absolute Neuts (auto) 4.5 Absolute Nucleated RBC 0.000 Band Neutrophils % Not Reportable Nucleated RBC % 0.0 Platelet Estimate Adequate Anisocytosis Macrocytosis 1+ Ovalocytes 1+ Schistocytes None seen PT INR VBG pH 7.397 VBG pCO2 50.7 H VBG pO2 86.9 H VBG HCO3 30.5 H O2 Delivery Device Nasal cannula O2 Liters/Min 4.0 FiO2 36 Sodium 141 Potassium 3.9 Chloride 103 Carbon Dioxide 35 H Anion Gap 3 L BUN 28 H Creatinine 1.10 H Estim Creat Clear Calc 39 Estimated GFR 48 L Glucose 111 H Lactic Acid Calcium 10.3 H Magnesium 1.9 Total Bilirubin 0.3 AST 22 ALT 18 Alkaline Phosphatase 86 Ammonia Total Creatine Kinase Troponin I Total Protein 6.0 L Albumin 3.2 L TSH Urine Color Urine Appearance Urine pH Ur Specific [place] Urine Protein Urine Glucose (UA) Urine Ketones Ur Blood (Man) Urine Nitrate Urine Bilirubin Urine Urobilinogen Leukocyte Esterase Rfl Salicylates Urine Opiates Screen Urine Methadone Screen Acetaminophen Ur Barbiturates Screen Ur Phencyclidine Scrn Ur Amphetamine Screen U Benzodiazepines Scrn Urine Cocaine Screen U Cannabinoids Screen Ethyl Alcohol Influenza A (RT-PCR) Influenza B (RT-PCR) RSV (RT-PCR) SARS-CoV-2 RNA (RT-PCR) Quality VTE Prophylaxis VTE prophylaxis: mechanical ordered and pharmacologic ordered
[2024-05-22] MEDS: MELATONIN 5 MG TABLET PO (22:06)
[2024-05-22] MEDS: QUEtiapine FUMARATE 25 MG TABLET PO (22:07)
[2024-05-23] VITALS (10 sets, daily range): BP systolic 125–151; BP diastolic 59–77; PULSE 62–92; RESP 12–20; TEMP 36.2–37; O2SAT 92–95
[2024-05-23 06:17] LABS: Basophils Percent Auto 0.5 % (0.2-1.2); Eosinophils Absolute Auto 0.4 K/mm3 (0-0.3); Eosinophils Percent Auto 6.4 % (0-4.4); Hematocrit 27.5 % (37.0-47.0); Hemoglobin 8.2 g/dL (12.0-15.0); Immature Granulocyte Absolute 0.02 K/mm3 (0.00-0.031); Immature Granulocyte Percent A 0.4 % (0-0.5); Lymphocytes Absolute Auto 0.73 K/mm3 (0.9-3.2); Lymphocytes Percent Auto 13.4 % (18.3-44.2); Mean Corpuscular HGB Conc 29.8 g/dl (32-36); Mean Corpuscular Hemoglobin 30.1 pg (26-34); Mean Corpuscular Volume 101.1 fl (80-100); Mean Platelet Volume 10.2 fl (7.4-10.4); Monocytes Absolute Auto 0.5 K/mm3 (0.1-0.6); Monocytes Percent Auto 8.6 % (2.6-8.5); Neutrophils Absolute Auto 3.9 K/mm3 (1.3-6.7); Neutrophils Percent Auto 70.7 % (45.5-73.1); Platelet Count Result 183 k/mm3 (150-375); Red Blood Count 2.72 M/mm3 (4.2-5.4); Red Cell Distribution Width 15.2 % (11.5-14.5); White Blood Count 5.5 K/mm3 (4.5-10.0)
[2024-05-23 06:37] LABS: Alanine Aminotransferase 16 U/L (6-35); Albumin Level 3.2 g/dL (3.5-5.1); Alkaline Phosphatase 89 U/L (38-126); Anion Gap 3 mmol/L (4-12); Aspartate Amino Transferase 18 U/L (14-36); Bilirubin,Total 0.2 mg/dL (0.2-1.3); Blood Urea Nitrogen 27 mg/dL (7-17); Calcium 10.1 mg/dL (8.4-10.2); Carbon Dioxide 33 mmol/L (22-30); Chloride 103 mmol/L (98-107); Estimated CRCL calculation 35 ml/min; Estimated Glomerular Filt Rate 43; Glucose 99 mg/dL (65-110); Magnesium 1.8 mg/dL (1.6-2.3); Potassium 3.9 mmol/L (3.4-5.0); Sodium 139 mmol/L (137-145)
[2024-05-23 07:12] LABS: Anisocytosis 1+; Platelet Estimate Adequate (Adequate); Schistocytes None Seen
[2024-05-23] MEDS: FERROUS SULFATE 325 MG TABLET DR BY MOUTH ×2 (08:24→18:16)
[2024-05-23] MEDS: CHOLECALCIFEROL 1,000 UNITS TABLET 1000 UNITS PO (08:24)
[2024-05-23] MEDS: PREGABALIN (*CRX) 75 MG CAPSULE 150 MG PO (08:24)
[2024-05-23] MEDS: ANASTROZOLE (*CHEMO) 1 MG TABLET PO (08:24)
[2024-05-23] MEDS: ROFLUMILAST 250 MCG TABLET PO (08:24)
[2024-05-23] MEDS: HEPARIN SODIUM 5,000 UNITS/ML VIAL 5000 UNITS SUB-Q ×2 (08:24→21:17)
[2024-05-23] MEDS: ASCORBIC ACID 500 MG TABLET PO (08:24)
[2024-05-23] MEDS: VITAMIN B COMPLEX CAPSULE 1 CAP PO (08:24)
[2024-05-23] MEDS: ASPIRIN 81 MG ENTERIC TABLET PO (08:24)
[2024-05-23] MEDS: MULTIVITAMINS /C LUTEIN (CENTRUM SILVER) TABLET *BKC 1 TAB PO (08:24)
[2024-05-23] MEDS: DULoxetine HCL 30 MG CAPSULE.DR PO (08:24)
[2024-05-23] MEDS: FOLIC ACID 1 MG TABLET PO (08:24)
[2024-05-23] MEDS: [UNRECOGNIZED DRUG - OTHER] PO (08:25)
[2024-05-23] MEDS: VIT C E ZN COPPR LUTEIN ZEAXAN PO (08:25)
[2024-05-23] MEDS: FLUTICASONE/UMECLIDIN/VILANTER 100-62.5-25 MCG ELLIPTA 1 PUFF INHALATION (08:31)
--- NOTE | 2024-05-23 10:52 | P.PNIM_ITS ---
Progress Note: A&P Assessment and Plan (1) Acute encephalopathy: Code(s): G93.40 - Encephalopathy, unspecified Status: Acute Assessment and Plan: * Acute encephalopathy. Probably metabolic with polypharmacy. * Ammonia <9. * A&Ox3. (2) COPD (chronic obstructive pulmonary disease): Code(s): J44.9 - Chronic obstructive pulmonary disease, unspecified Status: Acute Assessment and Plan: * Home oxygen 4 liters nasal cannula at rest and 6 liters nasal cannula with activity. * Per family member patient quit smoking 6 weeks ago. * Patient reports normally using her nebulizer once daily. * Trelegy 1 puff daily. * Duoneb q 12 PRN. (3) Weakness: Code(s): R53.1 - Weakness Status: Acute Assessment and Plan: * PT/OT * Fall precautions. * MRI of brain ordered. Patient with weakness and difficulty with ice/drink coming out of side of mouth on admission. (4) COREY (acute kidney injury): Code(s): N17.9 - Acute kidney failure, unspecified Status: Acute Assessment and Plan: * Creatinine 1.29 on admission, improving. Currently 1.21. * Encourage oral intake. * Trend labs. * Avoid nephrotoxins. Plan Chronic and stable conditions 1. Breast Ca. on Anastrozole 2. Lung ca. s/p Lobectomy 3. Prolonged smoking history. Quit week ago 4. COPD. 5. Hypertension. 6. DAYA. 7. Mood disorder. On Buspirone, Quetiapine Miscellaneous care. 1. Code status. Full 2. Nutrition. Heart healthy 3. VTE prophylaxis. ON Subjective Date/time seen: 05/23/24 10:52 Interval history: Son that is POA and daughter in law at bedside. They report that when patient ca me into the hospital her ice chips/drink would come out of the side of her mouth and that she has seemed weaker at home. Patient has fallen at home. Patient does have a life alert and apple watch but does not always wear them. Family check on patient often. Patient denies chest pain, palpitations, headache, dizziness, nausea, or vomiting. Review of Systems Review of Systems: All systems reviewed & are unremarkable except as noted in HPI and below Exam Const: General: comfortable and no acute distress Resp: Effort & Inspection: normal respiratory effort Auscultation: diminished lung sounds Cardio: Rate: tachycardic Other: Telemetry-ST 103. GI: GI Palp: Yes Soft to palpation Auscultation: normal bowel sounds Neuro: Speech: normal speech Extrem: General: no pedal edema Psych: Mental Status: mental status grossly normal Affect: normal affect Objective Data Vital Signs Vital Signs: Vital Signs - 24 hr 05/22/24 14:00 05/22/24 16:00 05/22/24 20:00 Temperature 98.2 F Pulse Rate 78 72 70 Respiratory Rate 18 14 Blood Pressure 125/78 Pulse Oximetry 96 93 Oxygen Delivery Nasal Cannula Oxygen Flow Rate 4 05/22/24 20:00 05/22/24 20:48 05/22/24 23:12 Temperature 97.3 F L 97.3 F L Pulse Rate 79 70 Respiratory Rate 14 Blood Pressure 131/60 Pulse Oximetry 93 Oxygen Delivery Oxygen Flow Rate 05/23/24 00:00 05/23/24 04:00 05/23/24 05:48 Temperature 97.1 F L Pulse Rate 69 62 66 Respiratory Rate 12 Blood Pressure 143/59 H Pulse Oximetry 95 Oxygen Delivery Oxygen Flow Rate 05/23/24 08:32 Temperature Pulse Rate Respiratory Rate Blood Pressure Pulse Oximetry 92 Oxygen Delivery Nasal Cannula Oxygen Flow Rate 4 Intake/Output Intake/Output: Intake & Output 05/20/24 05/21/24 05/22/24 05/23/24 23:59 23:59 23:59 23:59 Intake Total 1630 440 Output Total 50 350 500 Balance -50 1280 -60 Meds/Results Medications: Active Medications Generic Name Dose Route Start Last Admin Trade Name Freq PRN Reason Stop Dose Admin Acetaminophen 650 mg 05/22/24 06:17 05/22/24 22:06 Acetaminophen 325 Mg Tablet PO 650 mg Q4H PRN Administration Mild Pain (1-3) or Fever Albuterol/Ipratropium 3 ml 05/22/24 13:39 Ipratropium 0.5 Mg/Albuterol Sulfate 2.5 Mg Ampul.Neb 3 Ml INHALATION Q12HRT PRN Shortness Of Breath Or Wheezing Anastrozole 1 mg 05/22/24 09:00 05/23/24 08:24 Anastrozole (*Chemo) 1 Mg Tablet PO 1 mg DAILY GIA Administration Ascorbic Acid 500 mg 05/23/24 09:00 05/23/24 08:24 Ascorbic Acid 500 Mg Tablet PO 500 mg DAILY GIA Administration Aspirin 81 mg 05/22/24 09:00 05/23/24 08:24 Aspirin 81 Mg Enteric Tablet PO 81 mg DAILY GIA Administration Cholestyramine Resin 4 gm 05/22/24 13:32 Cholestyramine Light 4 Gm Powd.Pack PO TIDWM PRN IBS Duloxetine HCl 30 mg 05/22/24 09:00 05/23/24 08:24 Duloxetine Hcl 30 Mg Capsule.Dr PO 30 mg DAILY GIA Administration Ferrous Sulfate 325 mg 05/22/24 09:00 05/23/24 08:24 Ferrous Sulfate [address] BY MOUTH 325 mg BID GIA Administration Fluticasone/Umeclidinium/Vilanterol 1 puff 05/22/24 08:00 05/23/24 08:31 Fluticasone/Umeclidin/Vilanter 100-62.5-25 Mcg Ellipta INHALATION 1 puff DAILYRT GIA Administration Folic Acid 1 mg 05/23/24 09:00 05/23/24 08:24 Folic Acid 1 Mg Tablet PO 1 mg DAILY GIA Administration Heparin Sodium (Porcine) 5,000 units 05/22/24 09:00 05/23/24 08:24 Heparin Sodium 5,000 Units/Ml Vial SUB-Q 5,000 units Q12HR GIA Administration Melatonin 5 mg 05/22/24 06:17 05/22/24 22:06 Melatonin 5 Mg Tablet PO 5 mg HS PRN Administration Insomnia Multivitamins/Minerals 1 tab 05/23/24 09:00 05/23/24 08:24 Multivitamins /C Lutein (Centrum Silver) Tablet *Bkc PO 1 tab DAILY GIA Administration Multivitamins/Minerals 1 tablet 05/23/24 17:00 Opti-Gen Tab PO BID GIA Pregabalin 150 mg 05/22/24 09:00 05/23/24 08:24 Pregabalin (*Crx) 75 Mg Capsule PO 150 mg DAILY GIA Administration Prochlorperazine Edisylate 10 mg 05/22/24 06:17 Prochlorperazine Edisylate 10 Mg/2 Ml Vial IV PUSH Q6H PRN Nausea And Vomiting Quetiapine Fumarate 25 mg 05/22/24 21:00 05/22/24 22:07 Quetiapine Fumarate 25 Mg Tablet PO 25 mg QHS GIA Administration Roflumilast 250 mcg 05/23/24 09:00 05/23/24 08:24 Roflumilast 250 Mcg Tablet PO 250 mcg Q48HR GIA Administration Vitamin B Complex 1 cap 05/23/24 09:00 05/23/24 08:24 Vitamin B Complex Capsule PO 1 cap DAILY GIA Administration Vitamin D 1,000 units 05/23/24 09:00 05/23/24 08:24 Cholecalciferol 1,000 Units Tablet PO 1,000 units DAILY GIA Administration Radiology Results: ITS Impressions Chest X-Ray 05/21/24 23:14 IMPRESSION: Mild pulmonary vascular congestion with interstitial thickening and increased opacification of the left mid to lower lung field, likely secondary to overlying soft tissue. Head CT 05/22/24 00:08 Impression: No acute intracranial hemorrhage or suspicious mass effect. Abdomen/Pelvis CT 05/22/24 00:11 IMPRESSION: No acute findings within the abdomen or pelvis to account for patient's abdominal pain. Innumerable nonacute findings, as detailed above. Labs Labs: Laboratory Results - last 24 hr 05/23/24 05:25 WBC 5.5 RBC 2.72 L Hgb 8.2 L Hct 27.5 L MCV 101.1 H MCH 30.1 MCHC 29.8 L RDW 15.2 H Plt Count 183 MPV 10.2 Immature Gran % (Auto) 0.4 Neut % (Auto) 70.7 Lymph % (Auto) 13.4 L [place] % (Auto) 8.6 H Eos % (Auto) 6.4 H Baso % (Auto) 0.5 Lymph # (Auto) 0.73 L [place] # (Auto) 0.5 Eos # (Auto) 0.4 H Baso # (Auto) 0.0 Abs Immat Gran (auto) 0.02 Absolute Neuts (auto) 3.9 Absolute Nucleated RBC 0.000 Band Neutrophils % Not Reportable Nucleated RBC % 0.0 Platelet Estimate Adequate Anisocytosis 1+ Schistocytes None seen Sodium 139 Potassium 3.9 Chloride 103 Carbon Dioxide 33 H Anion Gap 3 L BUN 27 H Creatinine 1.21 H Estim Creat Clear Calc 35 Estimated GFR 43 L Glucose 99 Calcium 10.1 Magnesium 1.8 Total Bilirubin 0.2 AST 18 ALT 16 Alkaline Phosphatase 89 Total Protein 6.0 L Albumin 3.2 L Quality VTE Prophylaxis VTE prophylaxis: mechanical ordered and pharmacologic ordered
[2024-05-23] MEDS: OPTI-GEN TAB 1 TABLET PO (18:15)
[2024-05-23] MEDS: QUEtiapine FUMARATE 25 MG TABLET PO (21:17)
[2024-05-23] MEDS: ACETAMINOPHEN 325 MG TABLET 650 MG PO (21:31)
[2024-05-24] VITALS (10 sets, daily range): BP systolic 121–157; BP diastolic 63–73; PULSE 67–83; RESP 18–20; TEMP 36.2–36.8; O2SAT 90–98
[2024-05-24 06:48] LABS: Basophils Percent Auto 0.7 % (0.2-1.2); Eosinophils Absolute Auto 0.3 K/mm3 (0-0.3); Eosinophils Percent Auto 5.6 % (0-4.4); Hematocrit 25.5 % (37.0-47.0); Hemoglobin 7.7 g/dL (12.0-15.0); Immature Granulocyte Absolute 0.03 K/mm3 (0.00-0.031); Immature Granulocyte Percent A 0.6 % (0-0.5); Lymphocytes Absolute Auto 0.74 K/mm3 (0.9-3.2); Lymphocytes Percent Auto 13.8 % (18.3-44.2); Mean Corpuscular HGB Conc 30.2 g/dl (32-36); Mean Corpuscular Hemoglobin 30.4 pg (26-34); Mean Corpuscular Volume 100.8 fl (80-100); Monocytes Absolute Auto 0.4 K/mm3 (0.1-0.6); Monocytes Percent Auto 7.9 % (2.6-8.5); Neutrophils Absolute Auto 3.8 K/mm3 (1.3-6.7); Neutrophils Percent Auto 71.4 % (45.5-73.1); Platelet Count Result 176 k/mm3 (150-375); Red Blood Count 2.53 M/mm3 (4.2-5.4); Red Cell Distribution Width 14.6 % (11.5-14.5); White Blood Count 5.4 K/mm3 (4.5-10.0)
[2024-05-24 07:11] LABS: Alanine Aminotransferase 15 U/L (6-35); Albumin Level 3.2 g/dL (3.5-5.1); Alkaline Phosphatase 91 U/L (38-126); Anion Gap 4 mmol/L (4-12); Aspartate Amino Transferase 18 U/L (14-36); Bilirubin,Total 0.2 mg/dL (0.2-1.3); Blood Urea Nitrogen 30 mg/dL (7-17); Calcium 10.4 mg/dL (8.4-10.2); Carbon Dioxide 32 mmol/L (22-30); Chloride 103 mmol/L (98-107); Estimated CRCL calculation 35 ml/min; Estimated Glomerular Filt Rate 42; Glucose 100 mg/dL (65-110); Potassium 3.7 mmol/L (3.4-5.0); Sodium 139 mmol/L (137-145)
[2024-05-24] MEDS: FLUTICASONE/UMECLIDIN/VILANTER 100-62.5-25 MCG ELLIPTA 1 PUFF INHALATION (08:12)
[2024-05-24] MEDS: FOLIC ACID 1 MG TABLET PO (09:11)
[2024-05-24] MEDS: PREGABALIN (*CRX) 75 MG CAPSULE 150 MG PO (09:11)
[2024-05-24] MEDS: MULTIVITAMINS /C LUTEIN (CENTRUM SILVER) TABLET *BKC 1 TAB PO (09:11)
[2024-05-24] MEDS: VITAMIN B COMPLEX CAPSULE 1 CAP PO (09:11)
[2024-05-24] MEDS: OPTI-GEN TAB 1 TABLET PO ×2 (09:11→17:11)
[2024-05-24] MEDS: FERROUS SULFATE 325 MG TABLET DR BY MOUTH ×2 (09:11→17:10)
[2024-05-24] MEDS: ANASTROZOLE (*CHEMO) 1 MG TABLET PO (09:12)
[2024-05-24] MEDS: CHOLECALCIFEROL 1,000 UNITS TABLET 1000 UNITS PO (09:12)
[2024-05-24] MEDS: ASPIRIN 81 MG ENTERIC TABLET PO (09:12)
[2024-05-24] MEDS: DULoxetine HCL 30 MG CAPSULE.DR PO (09:12)
[2024-05-24] MEDS: HEPARIN SODIUM 5,000 UNITS/ML VIAL 5000 UNITS SUB-Q ×2 (09:12→21:16)
[2024-05-24] MEDS: ASCORBIC ACID 500 MG TABLET PO (09:12)
--- NOTE | 2024-05-24 10:50 | PCOTNOTE ---
Patient out of the room at this time. Patient down having a MRI, will check back at a later time.
--- NOTE | 2024-05-24 16:41 | P.PNIM_ITS ---
Progress Note: A&P Assessment and Plan (1) Acute encephalopathy: Code(s): G93.40 - Encephalopathy, unspecified Status: Acute Assessment and Plan: * Ammonia negative * UA negative for bacteria * Urine drug screen was negative * Alcohol level was negative * Head CT was negative for any acute findings * Brain MRI was negative for any acute findings, showed age-related changes and mastoid effusion * Continue neuro checks * Elevated Calcium level of 11.1, now down to 10.4 (2) Hypercalcemia: Code(s): E83.52 - Hypercalcemia Status: Acute Assessment and Plan: * Initial calcium level was 11.1> 10.3> 10.1> 10.4 * Continue to trend * Will hold Vitamin D3 * Check Vitamin D level (3) Mastoiditis: Code(s): H70.90 - Unspecified mastoiditis, unspecified ear Status: Acute Assessment and Plan: * Brain MRI showed left mastoid effusion * Spoke with Infectious Disease pharmacist and place patient on Augmentin and doxycycline for 4 weeks * She will need outpatient ENT (4) COPD (chronic obstructive pulmonary disease): Code(s): J44.9 - Chronic obstructive pulmonary disease, unspecified Status: Acute Assessment and Plan: * Currently on home oxygen 4 L at rest and 6 L with activity * Quit smoking 6 weeks ago * Continue Trelegy and DuoNebs as needed * Chest x-ray showed mild pulmonary vascular congestion with interstitial thickening and increased opacification in the left mid to lower lung zone (5) Weakness: Code(s): R53.1 - Weakness Status: Acute Assessment and Plan: * Continue PT/OT * Continue Fall precautions. * MRI of brain shown no acute finding, age-related changes and left mastoid effusion (6) COREY (acute kidney injury): Code(s): N17.9 - Acute kidney failure, unspecified Status: Acute Assessment and Plan: * Creatinine 1.29>1.10>1.21>1.24. * Likely at baseline as she has CKD stage III---Not an COREY * Avoid nephrotoxic medications and tests with IV contrast Time Spent With Patient Time with patient: 25 - 35 minutes Subjective Date/time seen: 05/24/24 16:41 Interval history: Interval history: This is a 78-year-old female with a significant past medical history of COPD on chronic O2 at 4-6 L, tobacco dependence, depression, hypertension who presented to the hospital with confusion and visual hallucinations. Workup in the hospital included a chest x-ray which showed mild pulmonary vascular congestion with interstitial thickening and increased opacification of the left mid to lower lung field. Head CT was negative for any acute intracranial process. Abdomen/pelvis CT was negative for any acute findings within the abdomen and pelvis. Brain MRI was negative for any acute intracranial process, showed age- related changes, left mastoid effusion. Initial labs showed a normal white blood cell count of 6.6, hemoglobin 8.5, INR 1.0, VBG showed a pCO2 of 50.7 with a normal pH of 7.397, sodium was normal at 140, bicarb 36, anion gap 3, creatin ine 1.29, EGFR 40, blood sugar ranging 99-121, lactic acid was normal at 1.0, calcium was 11.1, troponin was negative, ammonia was negative, TSH was normal at 1.790. UA was obtained and was negative. Urine drug screen was negative. Alcohol screening was negative. Respiratory panel was negative for influenza A and B, RSV, COVID. Subjective: Patient denies any new complaints today. Labs and imaging reviewed. Spoke with son over the phone, who is the POA, about the plan of care and treatment thus far. Review of Systems Review of Systems: All systems reviewed & are unremarkable except as noted in HPI and below Exam Narrative: General: In no acute distress, well nourished Head: atraumatic, no encephalopathy Eyes: PERRLA, sclera clear ENT: moist mucous membranes, nasal passages clear Neck: supple, no JVD, no adenopathy, trachea midline Cardiac: Normal S1 and S2. No murmur, gallops or friction rubs, peripheral pulses intact. Respiratory: Lungs clear to auscultation, no adventitious lung sounds, currently on 6 L nasal cannula Gastrointestinal: soft, non-distended, non-tender, normoactive bowel sounds. : voiding without difficulty. Extremities: moves all extremities well, no edema Skin: clean, dry, intact. No wounds or lesions. Neuro: Alert and oriented x2-3, cranial nerves intact, no neuro deficits. Psych: normal mood, normal affect, interactive Objective Data Vital Signs Vital Signs: Vital Signs - 24 hr 05/23/24 20:10 05/23/24 20:15 05/24/24 00:00 Temperature 98.6 F Pulse Rate 92 87 80 Respiratory Rate 20 Blood Pressure 151/77 H Pulse Oximetry 92 Oxygen Delivery Oxygen Flow Rate 05/24/24 04:00 05/24/24 04:20 05/24/24 08:13 Temperature 97.2 F L Pulse Rate 71 68 76 Respiratory Rate 20 20 Blood Pressure 143/64 H Pulse Oximetry 95 92 Oxygen Delivery Nasal Cannula Oxygen Flow Rate 4 05/24/24 08:13 05/24/24 09:11 05/24/24 09:11 Temperature Pulse Rate 76 72 Respiratory Rate 20 Blood Pressure Pulse Oximetry 90 Oxygen Delivery Nasal Cannula Oxygen Flow Rate 4 05/24/24 13:54 Temperature 98.1 F Pulse Rate 83 Respiratory Rate 20 Blood Pressure 157/63 H Pulse Oximetry 98 Oxygen Delivery Oxygen Flow Rate Intake/Output Intake/Output: Intake & Output 05/21/24 05/22/24 05/23/24 05/24/24 23:59 23:59 23:59 23:59 Intake Total 1630 1130 390 Output Total 50 350 1000 850 Balance -50 1280 130 -460 Meds/Results Medications: Active Medications Generic Name Dose Route Start Last Admin Trade Name Freq PRN Reason Stop Dose Admin Acetaminophen 650 mg 05/22/24 06:17 05/23/24 21:31 Acetaminophen 325 Mg Tablet PO 650 mg Q4H PRN Administration Mild Pain (1-3) or Fever Albuterol/Ipratropium 3 ml 05/22/24 13:39 Ipratropium 0.5 Mg/Albuterol Sulfate 2.5 Mg Ampul.Neb 3 Ml INHALATION Q12HRT PRN Shortness Of Breath Or Wheezing Amoxicillin/Clavulanate Potassium 1 tablet 05/24/24 16:00 Amoxicillin/Clavulanate K 875-125 Mg Tab PO 06/20/24 23:59 Q12HR GIA Anastrozole 1 mg 05/22/24 09:00 05/24/24 09:12 Anastrozole (*Chemo) 1 Mg Tablet PO 1 mg DAILY GIA Administration Ascorbic Acid 500 mg 05/23/24 09:00 05/24/24 09:12 Ascorbic Acid 500 Mg Tablet PO 500 mg DAILY GIA Administration Aspirin 81 mg 05/22/24 09:00 05/24/24 09:12 Aspirin 81 Mg Enteric Tablet PO 81 mg DAILY GIA Administration Cholestyramine Resin 4 gm 05/22/24 13:32 Cholestyramine Light 4 Gm Powd.Pack PO TIDWM PRN IBS Doxycycline Hyclate 100 mg 05/24/24 16:00 Doxycycline Hyclate 100 Mg Tablet PO 06/20/24 23:59 Q12HR [facility] Duloxetine HCl 30 mg 05/22/24 09:00 05/24/24 09:12 Duloxetine Hcl 30 Mg Capsule.Dr PO 30 mg DAILY GIA Administration Ferrous Sulfate 325 mg 05/22/24 09:00 05/24/24 09:11 Ferrous Sulfate [address] BY MOUTH 325 mg BID GIA Administration Fluticasone/Umeclidinium/Vilanterol 1 puff 05/22/24 08:00 05/24/24 08:12 Fluticasone/Umeclidin/Vilanter 100-62.5-25 Mcg Ellipta INHALATION 1 puff DAILYRT GIA Administration Folic Acid 1 mg 05/23/24 09:00 05/24/24 09:11 Folic Acid 1 Mg Tablet PO 1 mg DAILY GIA Administration Heparin Sodium (Porcine) 5,000 units 05/22/24 09:00 05/24/24 09:12 Heparin Sodium 5,000 Units/Ml Vial SUB-Q 5,000 units Q12HR GIA Administration Melatonin 5 mg 05/22/24 06:17 05/22/24 22:06 Melatonin 5 Mg Tablet PO 5 mg HS PRN Administration Insomnia Multivitamins/Minerals 1 tab 05/23/24 09:00 05/24/24 09:11 Multivitamins /C Lutein (Centrum Silver) Tablet *Bkc PO 1 tab DAILY GIA Administration Multivitamins/Minerals 1 tablet 05/23/24 17:00 05/24/24 09:11 Opti-Gen Tab PO 1 tablet BID GIA Administration Pregabalin 150 mg 05/22/24 09:00 05/24/24 09:11 Pregabalin (*Crx) 75 Mg Capsule PO 150 mg DAILY GIA Administration Prochlorperazine Edisylate 10 mg 05/22/24 06:17 Prochlorperazine Edisylate 10 Mg/2 Ml Vial IV PUSH Q6H PRN Nausea And Vomiting Quetiapine Fumarate 25 mg 05/22/24 21:00 05/23/24 21:17 Quetiapine Fumarate 25 Mg Tablet PO 25 mg QHS GIA Administration Roflumilast 250 mcg 05/23/24 09:00 05/23/24 08:24 Roflumilast 250 Mcg Tablet PO 250 mcg Q48HR GIA Administration Vitamin B Complex 1 cap 05/23/24 09:00 05/24/24 09:11 Vitamin B Complex Capsule PO 1 cap DAILY GIA Administration Vitamin D 1,000 units 05/23/24 09:00 05/24/24 09:12 Cholecalciferol 1,000 Units Tablet PO 1,000 units DAILY GIA Administration Radiology Results: ITS Impressions Chest X-Ray 05/21/24 23:14 IMPRESSION: Mild pulmonary vascular congestion with interstitial thickening and increased opacification of the left mid to lower lung field, likely secondary to overlying soft tissue. Head CT 05/22/24 00:08 Impression: No acute intracranial hemorrhage or suspicious mass effect. Abdomen/Pelvis CT 05/22/24 00:11 IMPRESSION: No acute findings within the abdomen or pelvis to account for patient's abdominal pain. Innumerable nonacute findings, as detailed above. Brain MRI 05/24/24 11:02 IMPRESSION: 1. No acute intracranial process. 2. Age-related changes including mild to moderate diffuse volume loss and moderate cerebral and pontine white matter T2 hyperintensity consistent with chronic small vessel ischemic disease. 2. Left mastoid effusion. Labs Labs: Laboratory Results - last 24 hr 05/24/24 05:50 WBC 5.4 RBC 2.53 L Hgb 7.7 L Hct 25.5 L MCV 100.8 H MCH 30.4 MCHC 30.2 L RDW 14.6 H Plt Count 176 MPV 10.0 Immature Gran % (Auto) 0.6 H Neut % (Auto) 71.4 Lymph % (Auto) 13.8 L [place] % (Auto) 7.9 Eos % (Auto) 5.6 H Baso % (Auto) 0.7 Lymph # (Auto) 0.74 L [place] # (Auto) 0.4 Eos # (Auto) 0.3 Baso # (Auto) 0.0 Abs Immat Gran (auto) 0.03 Absolute Neuts (auto) 3.8 Absolute Nucleated RBC 0.000 Nucleated RBC % 0.0 Sodium 139 Potassium 3.7 Chloride 103 Carbon Dioxide 32 H Anion Gap 4 BUN 30 H Creatinine 1.24 H Estim Creat Clear Calc 35 Estimated GFR 42 L Glucose 100 Calcium 10.4 H Magnesium 2.0 Total Bilirubin 0.2 AST 18 ALT 15 Alkaline Phosphatase 91 Total Protein 6.0 L Albumin 3.2 L Quality VTE Prophylaxis VTE prophylaxis: mechanical ordered and pharmacologic ordered
[2024-05-24] MEDS: AMOXICILLIN/CLAVULANATE K 875-125 MG TAB 1 TABLET PO ×2 (17:10→23:18)
[2024-05-24] MEDS: DOXYCYCLINE HYCLATE 100 MG TABLET PO ×2 (17:10→23:18)
[2024-05-24 17:44] LABS: Vitamin D 25 Hydroxy 47.9 ng/mL
[2024-05-24] MEDS: QUEtiapine FUMARATE 25 MG TABLET PO (21:16)
[2024-05-24] MEDS: ACETAMINOPHEN 325 MG TABLET 650 MG PO (21:18)
[2024-05-25] VITALS (9 sets, daily range): BP systolic 123–141; BP diastolic 59–65; PULSE 63–86; RESP 16–20; TEMP 36.1–36.9; O2SAT 92–94
[2024-05-25 07:05] LABS: Basophils Percent Auto 0.4 % (0.2-1.2); Eosinophils Absolute Auto 0.3 K/mm3 (0-0.3); Eosinophils Percent Auto 5.3 % (0-4.4); Hematocrit 25.8 % (37.0-47.0); Hemoglobin 7.8 g/dL (12.0-15.0); Immature Granulocyte Absolute 0.04 K/mm3 (0.00-0.031); Immature Granulocyte Percent A 0.7 % (0-0.5); Lymphocytes Absolute Auto 0.67 K/mm3 (0.9-3.2); Lymphocytes Percent Auto 11.9 % (18.3-44.2); Mean Corpuscular HGB Conc 30.2 g/dl (32-36); Mean Corpuscular Hemoglobin 30.7 pg (26-34); Mean Corpuscular Volume 101.6 fl (80-100); Mean Platelet Volume 10.4 fl (7.4-10.4); Monocytes Absolute Auto 0.5 K/mm3 (0.1-0.6); Monocytes Percent Auto 8.5 % (2.6-8.5); Neutrophils Absolute Auto 4.1 K/mm3 (1.3-6.7); Neutrophils Percent Auto 73.2 % (45.5-73.1); Platelet Count Result 203 k/mm3 (150-375); Red Blood Count 2.54 M/mm3 (4.2-5.4); Red Cell Distribution Width 14.6 % (11.5-14.5); White Blood Count 5.6 K/mm3 (4.5-10.0)
[2024-05-25 07:20] LABS: Alanine Aminotransferase 14 U/L (6-35); Albumin Level 3.2 g/dL (3.5-5.1); Alkaline Phosphatase 104 U/L (38-126); Anion Gap 6 mmol/L (4-12); Aspartate Amino Transferase 17 U/L (14-36); Bilirubin,Total < 0.1 mg/dL (0.2-1.3); Blood Urea Nitrogen 29 mg/dL (7-17); Calcium 10.7 mg/dL (8.4-10.2); Carbon Dioxide 32 mmol/L (22-30); Chloride 102 mmol/L (98-107); Estimated CRCL calculation 34 ml/min; Estimated Glomerular Filt Rate 42; Glucose 101 mg/dL (65-110); Sodium 140 mmol/L (137-145)
[2024-05-25] MEDS: DOXYCYCLINE HYCLATE 100 MG TABLET PO (08:47)
[2024-05-25] MEDS: MULTIVITAMINS /C LUTEIN (CENTRUM SILVER) TABLET *BKC 1 TAB PO (08:47)
[2024-05-25] MEDS: ANASTROZOLE (*CHEMO) 1 MG TABLET PO (08:47)
[2024-05-25] MEDS: PREGABALIN (*CRX) 75 MG CAPSULE 150 MG PO (08:48)
[2024-05-25] MEDS: FOLIC ACID 1 MG TABLET PO (08:48)
[2024-05-25] MEDS: AMOXICILLIN/CLAVULANATE K 875-125 MG TAB 1 TABLET PO (08:48)
[2024-05-25] MEDS: ROFLUMILAST 250 MCG TABLET PO (08:48)
[2024-05-25] MEDS: OPTI-GEN TAB 1 TABLET PO ×2 (08:48→16:49)
[2024-05-25] MEDS: ASPIRIN 81 MG ENTERIC TABLET PO (08:48)
[2024-05-25] MEDS: VITAMIN B COMPLEX CAPSULE 1 CAP PO (08:48)
[2024-05-25] MEDS: DULoxetine HCL 30 MG CAPSULE.DR PO (08:48)
[2024-05-25] MEDS: ASCORBIC ACID 500 MG TABLET PO (08:48)
[2024-05-25] MEDS: FERROUS SULFATE 325 MG TABLET DR BY MOUTH ×2 (08:48→16:49)
[2024-05-25] MEDS: HEPARIN SODIUM 5,000 UNITS/ML VIAL 5000 UNITS SUB-Q (08:53)
[2024-05-25] MEDS: FLUTICASONE/UMECLIDIN/VILANTER 100-62.5-25 MCG ELLIPTA 1 PUFF INHALATION (09:07)
--- NOTE | 2024-05-25 14:34 | P.DS_ITS ---
DS: Admitting Diagnosis Discharge Date 05/25/24 Admitting Diagnosis Acute encephalopathy DS: Discharge Diagnosis Discharge Diagnosis (1) Acute encephalopathy: Code(s): G93.40 - Encephalopathy, unspecified Status: Acute Assessment and Plan: * Ammonia negative * UA negative for bacteria * Urine drug screen was negative * Alcohol level was negative * Head CT was negative for any acute findings * Brain MRI was negative for any acute findings, showed age-related changes and mastoid effusion * Continue neuro checks * Elevated Calcium level of 11.1, now down to 10.4 (2) Hypercalcemia: Code(s): E83.52 - Hypercalcemia Status: Acute Assessment and Plan: * Initial calcium level was 11.1> 10.3> 10.1> 10.4 * Continue to trend * Will hold Vitamin D3 * Check Vitamin D level (3) Mastoiditis: Code(s): H70.90 - Unspecified mastoiditis, unspecified ear Status: Acute Assessment and Plan: * Brain MRI showed left mastoid effusion * Spoke with Infectious Disease pharmacist and place patient on Augmentin and doxycycline for 4 weeks * She will need outpatient ENT (4) COPD (chronic obstructive pulmonary disease): Code(s): J44.9 - Chronic obstructive pulmonary disease, unspecified Status: Acute Assessment and Plan: * Currently on home oxygen 4 L at rest and 6 L with activity * Quit smoking 6 weeks ago * Continue Trelegy and DuoNebs as needed * Chest x-ray showed mild pulmonary vascular congestion with interstitial thickening and increased opacification in the left mid to lower lung zone (5) Weakness: Code(s): R53.1 - Weakness Status: Acute Assessment and Plan: * Continue PT/OT * Continue Fall precautions. * MRI of brain shown no acute finding, age-related changes and left mastoid effusion (6) COREY (acute kidney injury): Code(s): N17.9 - Acute kidney failure, unspecified Status: Acute Assessment and Plan: * Creatinine 1.29>1.10>1.21>1.24. * Likely at baseline as she has CKD stage III---Not an COREY * Avoid nephrotoxic medications and tests with IV contrast DS: Summary Hospital Course Reason for hospitalization: Acute encephalopathy Hospital Course: * Final diagnosis: Acute encephalopathy, mastoiditis Status at Discharge Cognitive/behavioral status at discharge: Alert and oriented x3 Functional status at discharge: uses cane/walker Overall status at discharge: patient is progressing back to baseline Time Spent with Patient Time attestation: Total time spent providing and/or coordinating discharge services: Time spent: Greater than 30 minutes Exam Narrative: General: In no acute distress, well nourished Head: atraumatic, no encephalopathy Eyes: PERRLA, sclera clear ENT: moist mucous membranes, nasal passages clear Neck: supple, no JVD, no adenopathy, trachea midline Cardiac: Normal S1 and S2. No murmur, gallops or friction rubs, peripheral pulses intact. Respiratory: Lungs clear to auscultation, no adventitious lung sounds, currently on 6 L nasal cannula Gastrointestinal: soft, non-distended, non-tender, normoactive bowel sounds. : voiding without difficulty. Extremities: moves all extremities well, no edema Skin: clean, dry, intact. No wounds or lesions. Neuro: Alert and oriented x2-3, cranial nerves intact, no neuro deficits. Psych: normal mood, normal affect, interactive DS: Data Data Completed and Pending Completed studies during hospitalization: Brain MRI Abdomen/Pelvis Ct Head Ct Pending studies at discharge: None Labs on day of discharge: Labs from last 24 hours 05/25/24 05/24/24 06:20 05:48 WBC 5.6 RBC 2.54 L Hgb 7.8 L Hct 25.8 L MCV 101.6 H MCH 30.7 MCHC 30.2 L RDW 14.6 H Plt Count 203 MPV 10.4 Immature Gran % (Auto) 0.7 H Neut % (Auto) 73.2 H Lymph % (Auto) 11.9 L Lyman % (Auto) 8.5 Eos % (Auto) 5.3 H Baso % (Auto) 0.4 Lymph # (Auto) 0.67 L Lyman # (Auto) 0.5 Eos # (Auto) 0.3 Baso # (Auto) 0.0 Abs Immat Gran (auto) 0.04 H Absolute Neuts (auto) 4.1 Absolute Nucleated RBC 0.000 Nucleated RBC % 0.0 Sodium 140 Potassium 4.0 Chloride 102 Carbon Dioxide 32 H Anion Gap 6 BUN 29 H Creatinine 1.25 H Estim Creat Clear Calc 34 Estimated GFR 42 L Glucose 101 Calcium 10.7 H Magnesium 2.0 Total Bilirubin < 0.1 L AST 17 ALT 14 Alkaline Phosphatase 104 Total Protein 6.0 L Albumin 3.2 L Vitamin D 25-Hydroxy 47.9 Procedures/Treatments: none Discharge Plan Discharge Attending physician on discharge: Denis Cruz Discharging Clinician: Sarai Gasca Anticipated Discharge Date/Time: 05/25/24 14:23 Patient Disposition: SNF Activity: as tolerated Diet: as tolerated Discharge Instructions: * You were diagnosed with mastoiditis. You will require antibiotics x4 weeks. * Continue Augmentin and Doxycycline x4 weeks * Follow up with your Primary care doctor in 1 week * Get referral to see ENT doctor to follow up on your mastoiditis Patient Instructions: Antibiotic Form Patient Language: Czech Stand Alone Forms: General Discharge Information Follow-up/Referrals: Bernadette Cedillo MD [Primary Care Provider] - Orville Hays MD [Physician] - 1 Week Discharge Medications: New doxycycline hyclate 100 mg Tablet 100 mg PO Q12HR Qty: 52 0RF amoxicillin-pot clavulanate 875-125 mg tablet 1 tablet PO Q12H Qty: 52 0RF Continued aspirin [Ian Low Dose Aspirin] 81 mg Tablet,Delayed Release (Dr/Ec) 81 mg PO DAILY Patient Comments: . PreserVision AREDS-2 250-90-40-1 mg capsule 1 tablet PO BID algteqrl-nmrtbsx-ostu-lutein Tablet 1 tablet PO DAILY cholecalciferol (vitamin D3) 25 mcg (1,000 unit) capsule 25 mcg PO DAILY anastrozole 1 mg tablet 1 mg PO DAILY Patient Comments: . ferrous sulfate [FeroSul] 325 mg (65 mg iron) tablet 650 mg PO DAILY ascorbate calcium (vitamin C) 500 mg tablet 500 mg PO DAILY Patient Comments: . Taltz Autoinjector 80 mg/mL auto-injector See Rx Instructions .ROUTE .COMPLEX Qty: 3 4RF Dose Instruction: INJECT 80MG (1 PEN) UNDER THE SKIN EVERY 4 WEEKS Rx Instructions: INJECT 80MG (1 PEN) UNDER THE SKIN EVERY 4 WEEKS Ibrance 100 mg capsule 100 mg PO DAILY Rx Instructions: administer on days 1 through 21 of a 28-day treatment cycle Tyrvaya 0.03 mg/spray spray, metered, non-aerosol 1 spray intranasal DAILY Rx Instructions: administer into each nostril vitamin B complex Tablet 1 tablet PO DAILY roflumilast [Daliresp] 250 mcg tablet 250 mcg PO EVERY OTHER DAY ipratropium-albuterol 0.5 mg-3 mg(2.5 mg base)/3 mL Solution For Nebulization 3 ml INHALATION BID acetaminophen 500 mg tablet 1,000 mg PO BID Patient Comments: . Prevalite 4 gram powder in packet 1 ea PO TIDWM PRN (Reason: IBS) Karissa Aerosphere 160-9-4.8 mcg/actuation HFA aerosol inhaler See Rx Instructions .ROUTE .COMPLEX Qty: 10.7 5RF Dose Instruction: INHALE 2 BREATHS EVERY MORNING AND EVENING; RINSE AND SPIT, USE WITH A SPACER Patient Comments: . Rx Instructions: INHALE 2 BREATHS EVERY MORNING AND EVENING; RINSE AND SPIT, USE WITH A SPACER lisinopril 10 mg tablet 10 mg PO DAILY Qty: 90 2RF pregabalin 150 mg capsule 150 mg PO DAILY Qty: 90 3RF folic acid 1 mg tablet 1 mg PO DAILY Qty: 90 1RF duloxetine 30 mg capsule,delayed release(DR/EC) 30 mg PO DAILY Qty: 30 1RF quetiapine 25 mg tablet 25 mg PO QHS Qty: 90 1RF Date of admission: 05/23/24 15:36 Primary Care Provider: Bernadette Cedillo Admitting Provider: Robin Canela Attending physician on admission: Sarai Gasca Condition: Improved Quality VTE Prophylaxis VTE prophylaxis: mechanical ordered and pharmacologic ordered Hospitalist MIPS Heart Failure (Exclusion) Patient has history of Heart Transplant or Left Ventricular Assistive Device?: No IF YES, STOP HERE Heart Failure (Qualifier) Patient has current or prior documentation of LVEF less than or equal to 40%, or mod/servere depressed LVSF?: No IF NO, STOP HERE
[2024-05-25] MEDS: EPOETIN ALFA-EPBX 10,000 UNITS/ML VIAL 10000 UNITS SUB-Q (16:50)
[2024-05-25] MEDS: EPOETIN ALFA 20,000 UNITS/ML VIAL 20000 UNITS SUB-Q (16:50)
== END 2024-05-25 18:05 | DRG 91 ==
LOC: ANHED 22:31 → ANH3MEDSUR 05-22 03:06
PROVIDERS: Nurse Practitioner Family; Admitting Provider Internal Medicine; Emergency Provider Preventive Medicine Aerospace Medicine; PCP Family Medicine; Visit Provider Nurse Practitioner Acute Care
DX: G92.8 Other toxic encephalopathy (principal); G93.41 Metabolic encephalopathy; J44.1 Chronic obstructive pulmonary disease with (acute) exacerbation; N17.9 Acute kidney failure, unspecified; H70.92 Unspecified mastoiditis, left ear; T50.915A Adverse effect of multiple unspecified drugs, medicaments and biological substances, initial encounter; R53.1 Weakness; I12.9 Hypertensive chronic kidney disease with stage 1 through stage 4 chronic kidney disease, or unspecified chronic kidney disease; N18.30 Chronic kidney disease, stage 3 unspecified; E83.52 Hypercalcemia; F03.90 Unspecified dementia, unspecified severity, without behavioral disturbance, psychotic disturbance, mood disturbance, and anxiety; I73.9 Peripheral vascular disease, unspecified; L40.50 Arthropathic psoriasis, unspecified; K21.9 Gastro-esophageal reflux disease without esophagitis; C50.919 Malignant neoplasm of unspecified site of unspecified female breast; G62.9 Polyneuropathy, unspecified; F41.9 Anxiety disorder, unspecified; K58.9 Irritable bowel syndrome, unspecified; F39 Unspecified mood [affective] disorder; D50.9 Iron deficiency anemia, unspecified; Z20.822 Contact with and (suspected) exposure to COVID-19; Z96.659 Presence of unspecified artificial knee joint; Z99.81 Dependence on supplemental oxygen; Z85.118 Personal history of other malignant neoplasm of bronchus and lung; Z90.49 Acquired absence of other specified parts of digestive tract; Z98.49 Cataract extraction status, unspecified eye; Z87.891 Personal history of nicotine dependence
CPT/HCPCS: 36415; 70450; 70553; 71045; 74177; 80053; 80143; 80179; 80307; 81003; 82077; 82140; 82306; 82550; 82803; 83605; 83735; 84443; 84484; 85025; 85610; 87637; 94640; 96372; 97110; 97116; 97161; 97165; 97166; 97530; 97535; 99285; A9270; A9579; G0378; J1644; J7030; J7042; Q4081; Q5105; Q9967

== ENCOUNTER 2024-06-17 17:01 | Inpatient (IN) | payer MEDICARE, OTHER, SELFPAY ==
[2024-06-17] VITALS (11 sets, daily range): BP systolic 128–157; BP diastolic 59–80; PULSE 94–110; RESP 16–24; TEMP 36.9–38.6; O2SAT 94–100
--- NOTE | ~2024-06-17 | XR_ITS ---
CHEST RADIOGRAPH, PA AND LATERAL CLINICAL HISTORY: SOB . COMPARISON: 05/21/2024 TECHNIQUE: PA and lateral views of the chest. FINDINGS The cardiomediastinal silhouette is enlarged, unchanged. Increased interstitial markings are identified bilaterally, findings suggesting mild pulmonary vascul ar congestion. The remainder of the lungs are otherwise clear. IMPRESSION: Pulmonary vascular congestion, without focal infiltrate or effusion. Reviewed, dictated and finalized at location A.
--- NOTE | ~2024-06-17 | NM_ITS ---
EXAMINATION: NM GI bleeding DATE: 06/26/2024 12:02 INDICATION: Anemia TECHNIQUE: 21.6 mCi Tc 99m in vitro labeled red cells administered intravenously. Scintigraphic imag es of the abdomen were obtained through one hour. FINDINGS: No pattern of abnormal activity is seen in the abdomen or pelvis to suggest gastrointestina l hemorrhage. IMPRESSION: 1. No scintigraphic evidence for active gastrointestinal bleeding. Reviewed, dictated and finalized at location A.
--- NOTE | ~2024-06-17 | CT_ITS ---
CT Scan of the Chest without Contrast: Clinical Indication: Lung cancer Technique: Contiguous sections were acquired throughout the chest without intravenous contrast. Dose reduction technique was used on this scan by utilizing automated exposure control and iterative recon struction technique. The dose-length product (DLP) was 256.56 mGy-cm. COMPARISON: 03/11/2024 Findings: There is no evidence of any significant mediastinal, hilar or axillary lymphadenopathy., Slight media stinal/right hilar lymph nodes are present. There are minimal coronary artery calcifications. No aort ic aneurysm. There is no evidence of pleural or pericardial effusion. Spiculated nodule with central calcification the right upper lobe is similar to prior exam, measuring 15 mm in diameter. There is associated probable postoperative change with suture line at the posteri or right lung apex with postoperative scarring and distortion. Mild interstitial change in the right lung is unchanged from prior exam. New 5 mm right lower lobe nodule present (axial image 47). Stable 1 cm nodule inferior right lower lobe (axial image 68). There is mild amorphous hazy groundglass opac ity extensively involving the central right lung. There is probable scarring or atelectasis at the li ngula. There is minimal amorphous ground glass opacity left lung. Mildly increased nodule in the jaquelin pheral left upper lobe (axial image 33), measuring 1 cm. Images through the upper abdomen reveal stable splenic cyst. Stable peripherally sclerotic lesion in L1. Extensive degenerative change of the lower thoracic spine is again present. Impression: Multiple pulmonary nodules, as detailed above. There is a new 5 mm right lower lobe nodule and an inc reased 1 cm left upper lobe nodule. Remaining nodules are unchanged. Mild interval progression of dis ease is a consideration. Extensive mild amorphous groundglass opacity could reflect pulmonary edema, posttreatment change, or nonspecific bronchitis. Correlate clinically. Stable postoperative change right lung apex. Stable peripherally sclerotic lesion in the L1 vertebral body. Reviewed, dictated and finalized at location M. Impression: Multiple pulmonary nodules, as detailed above. There is a new 5 mm right lower lobe nodule and an increased 1 cm left upper lobe nodule. Remaining nodules are unchanged. Mild interval progression of disease is a consideration. Extensive mild amorphous groundglass opacity could reflect pulmonary edema, pos ttreatment change, or nonspecific bronchitis. Correlate clinically. Stable postoperative change right lung apex. Stable peripherally sclerotic lesion in the L1 vertebral body.
--- NOTE | ~2024-06-17 | CT_ITS ---
History: Fall, head injury PROCEDURE: CT head without contrast. COMPARISON: 05/21/2024. Reference is also made to an MRI examination of the brain dated 05/24/2024 TECHNIQUE: Axial imaging of the head performed from the skull base to the vertex without IV contrast. Sagittal a nd coronal reformations obtained. DLP: 681 mGy-cm FINDINGS: The ventricles are enlarged. The dilatation of the ventricles is proportional to the degree of sulcal prominence, not uncommon in the senescent brain. Decreased attenuation is identified within the periventricular white matter, likely secondary to micr ovascular ischemic disease, in a patient of this age. There is no mass, mass effect or midline shift. There is no abnormal extra-axial fluid collection or intracranial hemorrhage. Visualized paranasal sinuses are clear. Redemonstration of a left sided mastoid effusion. The right mastoid air cells are well aerated. No acute displaced fractures within the overlying cranium. Impression: No acute intracranial hemorrhage or suspicious mass effect. Redemonstration of a left sided mastoid effusion. Reviewed, dictated and finalized at location A. Impression: No acute intracranial hemorrhage or suspicious mass effect. Redemonstration of a left sided mastoid effusion.
--- NOTE | 2024-06-17 17:25 | ECG_ITS ---
Test Date: 2024-06-17 17:12:56 Measurements Intervals [place] Rate: 108 P: 32 [place]: 186 QRS: -4 QRSD: 84 T: 43 QT: 328 QTc: 441 Interpretive Statements SINUS TACHYCARDIA NONSPECIFIC T WAVE ABNORMALITY Compared to ECG 03/11/2024 14:20:22 SINUS TACHYCARDIA NOW PRESENT Electronically Signed On 06-18-2024 14:16:11 CDT by Zamzam Upton M.D.
[2024-06-17 17:33] LABS: Basophils Percent Auto 0.3 % (0.2-1.2); Eosinophils Absolute Auto 0.4 K/mm3 (0-0.3); Immature Granulocyte Absolute 0.06 K/mm3 (0.00-0.031); Immature Granulocyte Percent A 0.8 % (0-0.5); Lymphocytes Absolute Auto 0.59 K/mm3 (0.9-3.2); Lymphocytes Percent Auto 8.2 % (18.3-44.2); Mean Corpuscular HGB Conc 28.5 g/dl (32-36); Mean Corpuscular Volume 101.9 fl (80-100); Mean Platelet Volume 10.2 fl (7.4-10.4); Monocytes Absolute Auto 0.7 K/mm3 (0.1-0.6); Monocytes Percent Auto 9.8 % (2.6-8.5); Neutrophils Absolute Auto 5.4 K/mm3 (1.3-6.7); Neutrophils Percent Auto 75.9 % (45.5-73.1); Nucleated Red Blood Cells Perc 0.6 % (0.0-0.2); Platelet Count Result 189 k/mm3 (150-375); Red Blood Count 1.62 M/mm3 (4.2-5.4); Red Cell Distribution Width 15.1 % (11.5-14.5); White Blood Count 7.2 K/mm3 (4.5-10.0)
[2024-06-17 17:50] LABS: Alanine Aminotransferase 15 U/L (6-35); Albumin Level 3.1 g/dL (3.5-5.1); Alkaline Phosphatase 96 U/L (38-126); Anion Gap 3 mmol/L (4-12); Aspartate Amino Transferase 21 U/L (14-36); Bilirubin,Total 0.3 mg/dL (0.2-1.3); Blood Urea Nitrogen 26 mg/dL (7-17); Calcium 10.7 mg/dL (8.4-10.2); Carbon Dioxide 36 mmol/L (22-30); Chloride 100 mmol/L (98-107); Estimated CRCL calculation 30 ml/min; Estimated Glomerular Filt Rate 41; Glucose 107 mg/dL (65-110); Potassium 4.1 mmol/L (3.4-5.0); Sodium 139 mmol/L (137-145)
[2024-06-17 17:58] LABS: Hematocrit 16.5 % (37.0-47.0); Hemoglobin 4.7 g/dL (12.0-15.0)
[2024-06-17 18:00] LABS: Platelet Estimate Adequate (Adequate)
[2024-06-17 18:01] LABS: Anisocytosis 2+; Hypochromasia 2+; Microcytosis 2+ (NORMAL); Schistocytes None Seen
--- OUTSIDE RECORDS SUMMARY | 2024-06-17 18:40 | XMS_ITS | Encounter Summary ---
Author Organization [facility] [employer] Address [address] [place] [address] Care Team Providers Care Medical Administrative Name Role Phone Bernadette Cedillo MD Primary Care Provider [phone] Encounter Details Date Type Department Care Team ([facility] Contact Info) Description 06/10/2022 Abstract [facility] Oncology and Hematology - [address] [place] [address] Greg Barrow RN Social History Tobacco Use Types Packs/Day Years Used Date Smoking Tobacco: Every Day Cigarettes 1 55 Smokeless Tobacco: Never Alcohol Use Standard Drinks/Week Comments No 0 (1 standard drink = 0.6 oz pur e alcohol) Comments No Sex and Gender Information Value Date Recorded Sex Assigned at Not on file 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 No / Unsure 06/02/2022 1:16 PM CDT documented as of this encounter Plan of Treatment Upcoming Encounters Date Type Department Care Team ([facility] Contact Info) Description 06/19/2024 8:30 AM CDT Office Visit [facility] Oncology and Hematology - [address] [place] [address] David Michaud MD [address] [facility] [address] [place] [address] documented as of this encounter Visit Diagnoses Not on filedocumented in this encounter Care Teams Medical Administrative Relationship Specialty Start Date End Date Bernadette Cedillo MD [address] [place] [id number] PCP - General Family Practice 06/30/22 documented as of this encounter
--- OUTSIDE RECORDS SUMMARY | 2024-06-17 18:40 | XMS_ITS | Encounter Summary ---
Author Organization [facility] Address [address] [place] [address] Care Team Providers Care Press Operator Heavy Duty Name Role Phone Bernadette Cedillo MD Primary Care Provider [phone] Encounter Details Date Type Department Care Team (Late st Contact Info) Description 11/14/2022 Lab Requisition [facility] - Pathology Lab [address] [place] [address] Rocco Roblero MD [address] [address] Illness, unspecified Social History Tobacco Use Types Packs/Day Years Used Date Smoking Tobacco: Never Assessed Comments Unknown Sex and Gender Information Value Date Recorded Sex Assigned at Not on file Legal Sex Female 3:53 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 Storage iron is decreased. Correlation with clinical findings and relevant cytogenetic/molecular testing is required. 11/14/2022 10:58 AM [facility] Peripheral Smear Description CBC Data: WBC - 7.9, Hgb - 8.3, MCV - 105.6, MCHC - 31, and Platelets - 172. Leukocyte number: normal. Granulocyte morphology: normal. Lymphocyte morphology: normal. Erythrocyte number: decreased. Erythrocyte morphology: macrocytic. Anisopoikilocytosis: mild. Polychromasia: mild. Platelet number: normal. Platelet morphology: normal. 11/14/2022 10:58 AM [facility] Bone Marrow Aspirate Differential count [...] Control is appropriately reactive. 11/14/2022 10:58 AM [facility] Bone Marrow Core Biopsy and [...] (by special stain): decreased. 11/14/2022 10:58 AM [facility] Flow Cytometry Summary Concurrent flow cytometry ([id number]) shows no clonal B-cell population or increase in blasts. 11/14/2022 10:58 AM [facility] Clinical History 77 year old woman with chronic anemia. 11/14/2022 10:58 AM T [facility] Materials Received Received are 20 slides and 3 blocks labeled [id number] along with a copy of the outside pathology report. The materials originate from [place] [address]. All original materials are returned to the referring institution, along with a copy of our final report. 11/14/2022 10:58 AM [facility] Pathologist Location at [facility] 11/14/2022 10:58 AM [facility] Disclaimer The performance characteristics of all immunohistochemical and indirect immunofluorescence stains (if any) cited in this report were determined by the Histopathology Laboratory of [facility]. Some of these tests were [...] the attending (teaching) pathologist. 11/14/2022 10:58 AM [facility] Embedded Images 11/14/2022 10:58 AM CDT [facility] Pathology/Cytology BONE MARROW SPECIMEN / Unknown 11/10/2022 9:00 AM CDT 11/14/2022 9:45 AM CDT Miscellaneous samples (specimen) BONE MARROW SPECIMEN / Unknown 11/10/2022 9:00 AM CDT 11/14/2022 9:59 AM CDT us Rocco Roblero MD LAB - PATHOLOGY/CYTOLOGY ORDERAB LES Final Result [facility] [address] [facility] [place] [address], [facility] [phone] documented in this encounter Visit Diagnoses Diagnosis Illness, unspecified documented in this encounter Care Teams Press Operator Heavy Duty Relationship Specialty Start Date End Date Bernadette Cedillo MD [address] [place] [address] PCP - General 06/22/21 documented as of this encounter
--- OUTSIDE RECORDS SUMMARY | 2024-06-17 18:40 | XMS_ITS | Encounter Summary ---
Author Organization [facility] Address [address] [place] [address] Care Team Providers Care Lab Scientist Name Role Phone Bernadette Cedillo MD Primary Care Provider Encounter Details Date Type Department Care Team (Late Contact Info) Description 07/29/2019 Chart Note [facility] Radiation Therapy [address] [place] [address] [place] [address] [place] [address] Social History Tobacco Use Types Packs/Day Years Used Date Smoking Tobacco: Every Day Cigarettes 1 55 Smokeless Tobacco: Never Alcohol Use Standard Drinks/Week Comments No 0 (1 standard drink = 0.6 oz pur e alcohol) Comments No Sex and Gender Information Value Date Recorded Sex Assigned at Not on file 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
--- OUTSIDE RECORDS SUMMARY | 2024-06-17 18:40 | XMS_ITS | Clinical Summary ---
Author Organization [facility] Address [address] [place] [address] Care Team Providers Care Aerospace Manager Name Role Phone Bernadette Cedillo MD Primary Care Provider [phone] Allergies Active Allergy Reactions Criticality Noted Date [...] Encounters Date Type Department Care Team Description 06/12/2024 Orders Only [facility] Oncology and Hematology - [address] [place] [address] David Michaud MD 06/11/2024 Orders Only [facility] Oncology and Hematology - [address] [place] [address] David Michaud MD Malignant 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, estrogen receptor positive (CMS/HCC) (Primary Dx) 06/03/2024 Orders Only [facility] Oncology and Hematology - [address] [place] [address] David Michaud MD Malignant 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, estrogen receptor positive (CMS/HCC) 05/20/2024 Orders Only [facility] Oncology and Hematology - [address] David Michaud MD Malignant 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, estrogen receptor positive (CMS/HCC) 05/16/2024 Abstract [facility] Oncology and Hematology - [address] David Michaud MD 05/15/2024 Orders Only [facility] Oncology and Hematology - [address] David Michaud MD 05/14/2024 Orders Only [facility] Oncology and Hematology - [address] David Michaud MD 05/06/2024 Orders Only [facility] Oncology and Hematology - [address] David Michaud MD Malignant 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, estrogen receptor positive (CMS/HCC) 04/22/2024 Orders Only [facility] Oncology and Hematology - [address] aDvid Michaud MD Malignant 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, estrogen receptor positive (CMS/HCC) 04/16/2024 Orders Only [facility] Oncology and Hematology - [address] David Michaud MD 04/08/2024 Orders Only [facility] Oncology and Hematology - [address] [place] [address] David Michaud MD Malignant 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, estrogen receptor positive (CMS/HCC) 04/04/2024 8:30 AM CASH ROOM CLERK Office Visit [facility] Oncology and Hematology - [address] [place] [phone] David Michaud MD Malignant 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, estrogen receptor positive (CMS/HCC) (Primary Dx); Non-small cell cancer of left lung (CMS/HCC) 04/02/2024 External Device Data STL ABSTRACTION Provider, Abstract 03/25/2024 Orders Only [facility] Oncology and Hematology [facility] [address] [place] [address] David Michaud MD Malignant neoplasm of overlapping [...] on file Legal Sex Female 2:13 PM CASH ROOM CLERK Gender Identity Not on file Sexual Orientation Not on file Last Filed Vital Signs Vital Sign Reading Time Taken Comments Blood Pressure 167/91 04/04/2024 8:48 AM CASH ROOM CLERK Pulse 73 04/04/2024 8:45 AM CASH ROOM CLERK Temperature 36.1 C (97 F) 04/04/2024 8:45 AM CASH ROOM CLERK Respiratory Rate 15 04/04/2024 8:45 AM CASH ROOM CLERK Oxygen Saturation 99% 04/04/2024 8:45 AM CASH ROOM CLERK Inhaled Oxygen Concentration - - Weight 71.5 kg (157 lb 9.6 oz) 04/04/2024 8:45 A M CASH ROOM CLERK Height 154.9 cm (5' 1 ) 07/09/2021 9:59 AM CDT Body Mass Index 29.78 07/09/2021 9:59 AM CDT Plan of Treatment Upcoming Encounters Date Type Department Care Team (Late st Contact Info) Description 06/19/2024 8:30 AM CDT Office Visit [facility] Oncology and Hematology [address] [place] [address] David Michaud MD [address] [facility] [address] [place] [address] Health Maintenance Due Date Last Done Comments DTAP/TDAP/TD VACCINES (1 - Tdap) 09/04/1966 PNEUMOCOCCAL VACCINE 50+ YEARS (1 of 2 - PCV) 09/04/18 67 Traditional Medicare (ACO) Annual Wellness Visit 09/04 ZOSTER VACCINE (1 of 2) 09/04/1997 RSV VACCINE (60+ or ) (1 - 1-dose 75+ series) 09/04/2022 INFLUENZA VACCINE (#1) 2023 OSTEOPOROSIS SCREENING 12/14/2025 12/14/2020 Lung Cancer Screening Discontinued 06/22/2016 COLORECTAL SCREENING Discontinued 06/16/2021 Colorectal Cancer Screening Discontinued FIT-DNA Q 3 years Discontinued FIT/FOBT Q 1 year Discontinued Flex Sig/CT Colonography Q 5 years Discontinued Procedures Procedure Name Priority Date/Time Associated Diagnosis Comments CBC MIXED CELL DIFFERENTIAL Routine 05/15 1:04 PM CDT CANCER ANTIGEN 15-3 Routine 06/11/2024 9 :44 AM CDT COMPREHENSIVE METABOLIC PANEL Routine 06/11/2024 8:56 AM CDT TYPE AND SCREEN Routine 05/15/2024 11:09 AM CDT CBC WITH AUTODIFFERENTIAL Routine 2024 1:08 PM CDT CBC WITH AUTODIFFERENTIAL Routine 2024 1:22 PM CASH ROOM CLERK from Last 3 Months Results * CBC MIXED CELL DIFFERENTIAL (06/11/2024 1:04 PM CDT) Blood David Michaud MD HEMATOLOGY ORDERABLES Final Res ult * CANCER ANTIGEN 15-3 (06/11/2024 9:44 AM CDT) Blood David Michaud MD CHEMISTRY ORDERABLES Final Resu lt * COMPREHENSIVE METABOLIC PANEL (06/11/2024 8:56 AM CDT) Blood David Michaud MD CHEMISTRY ORDERABLES Final Resu lt * TYPE AND SCREEN (05/15/2024 11:09 AM CDT) Blood David Michaud MD BLOOD BANK ORDERABLES Final Res ult * CBC WITH AUTODIFFERENTIAL (05/14/2024 1:08 PM CDT) Only the most recent of2 resultswithin the time period is included. Blood David Michaud MD HEMATOLOGY ORDERABLES Final Res ult from Last [address] [place] [address] [place] [address] MEDICARE RAILROAD [place] [facility] MEDICARE RAILROAD RX [facility] Medicare Part D RX [facility] [employer] Commercial Care Teams Aerospace Manager Relationship Specialty Start Date End Date Bernadette Cedillo MD [address] [place] [address] PCP - General Family Practice 06/30/22
--- OUTSIDE RECORDS SUMMARY | 2024-06-17 18:40 | XMS_ITS | Continuity of Care Document ---
Author Organization [facility] Address [address] [place] [address] Phone Care Team Providers Care Leak Patcher Name Role Phone Chevy Keith MD Unavailable [...] CATARACT SURG W/IOL, 1 STAGE OFFICE/OUTPATIENT VISIT, [facility] OPHTHALMIC BIOMETRY Advance Directives Directive Yes / No Effective Date File Name No Information Encounters Encounter Description Practice Location Reason(s) For Visit Diagnoses Date Provider Providers Copied on Encounter [facility], [address] [place] [address], [id number], tel:[phone] [address] [place] [address] [facility] No Information 3 Sagar Reece. [address], [address], [place], [place], [id number] , [place]. tel:[phone] Referring Provider: Chevy Shelley, [address], [place], [address] . tel:[phone] [facility], [address] [place] [address], [id number], tel:[phone] [facility] No Information 3 Sagar Reece. [address], [address], [place], [id number] , [place]. tel:[phone] Referring Provider: Chevy Shelley, [address], [place], [address] . tel:[phone] [facility], [address] [place] [address], [place], [place], [id number], tel:[phone] [address] [place] [address] No Information 3 Sagar Reece. [address], [address], [place], [id number] , [place]. tel:[phone] Referring Provider: Chevy Shelley, [address], [place], [address] . tel:[phone] OFFICE/OUTPA TIENT VISIT, [facility], [address] [place] [address], [id number], tel:[phone] OPH CONSULT ADITYA PEREZ Senile nuclear sclerosisMacular degeneration (senile) of retina, unspecified 3 Sagar Reece. [address], [address], [place], [id number] , [place]. tel: [phone] Referring Provider: Chevy Shelley, [address], [place], [address] . tel:[phone] Family History Family Member Type Diagnosis Age At Onset Problem (finding) Family history of degenerative disorder of macula Problem (finding) Family history of Diabe donovan mellitus Problem (finding) Family history of glauc rush Payers Payer name Insurance type Covered alliance party ID Authoriza tion(s) [employer] Medicare MB [id number] [employer] [facility] CI [id number] Social History Type Description Quantity Date Captured [...]
--- OUTSIDE RECORDS SUMMARY | 2024-06-17 18:40 | XMS_ITS | Encounter Summary ---
Author Organization [facility] Lizama G[facility]Yee Address [address] [place] [address] Care Team Providers Care Set Up / Operator Name Role Phone Bernadette Cedillo MD Primary Care Provider [phone] Encounter Details Date Type Department Care Team (Late Contact Info) Description 01/23/2023 Abstract [facility] Oncology and Hematology - [address] [place] [address] Colette Cage, STEVE Social History Tobacco Use Types Packs/Day Years Used Date Smoking Tobacco: Every Day Cigarettes 1 55 Smokeless Tobacco: Never Alcohol Use Standard Drinks/Week Comments No 0 (1 standard drink = 0.6 oz pur e alcohol) Comments No Sex and Gender Information Value Date Recorded Sex Assigned at Not on file Legal Sex Female 2:13 PM 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 Gender Identity Not on file Sexual Orientation Not on file documented as of this encounter Plan of Treatment Upcoming Encounters Date Type Department Care Team (Late st Contact Info) Description 06/19/2024 8:30 AM CDT Office Visit [facility] Oncology and Hematology - [address] [place] [address] David Michaud MD [address] [facility] [address] [place] [address] documented as of this encounter Visit Diagnoses Not on filedocumented in this encounter Care Teams Set Up / Operator Relationship Specialty Start Date End Date Bernadette Cedillo MD [address] [place] [address] PCP - General Family Practice 06/30/22 documented as of this encounter
--- OUTSIDE RECORDS SUMMARY | 2024-06-17 18:40 | XMS_ITS | Clinical Summary ---
Author Organization [facility] Address [address] [place] [address] Care Team Providers Care Manager Ethics Name Role Phone Hernesto Joshi MD Primary Care Provider [phone] Allergies Active Allergy Reactions Criticality Noted Date [...] 1 tablet by mouth daily Active vitamins A,C,G-fnjz-ocadtu (ICAPS) 4,296 mcg-226 mg-90 mg capsule Take [...] Date Smoking Tobacco: Every Day Cigarettes 0.5 50.6 Started: 11/21/1973 Tobacco Cessation:Ready to Q uit: No; Counseling Given: Not Answered Comments:0.5ppd x 50 years [employer] Utilities Answer Date Recorded In the past 12 months has e [employer], gas, oil, or water [employer] threatened to shut off services in your [...] often do you attend chur ch or hindu services? 1 to 4 times per year 11/22/2023 Do you belong to any clubs o r organizations such as adventist groups, unions, fraternal or athletic groups, or [...] any time in the past 12 m [facility], were you homeless or living in a fpc (including now)? No 11/22/2023 Personal Safety Answer Date Recorded Have you ever been in or are you currently in a harmful physical or emotional relationship or is someone making you feel afraid or unsafe? 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 FAMILY DAY CARE PROVIDER Gender Identity Female 11/22/2023 9:01 AM CDT [...] 11/18/2015, 07/22/2013, Additional history exists Insurance MEDICARE [employer] MEDICARE [employer]RO[employer] Advance Directives For more information, please contact: [phone] Documents on File Type Date Recorded Patient Classified Advertising Supervisor Expl anation ADVANCE DIRECTIVE 11/27/2023 12:53 PM Pow er of Credit Clerk-Medical * LIMITED - No CPR (Latest Code Status on File) Date Activated Date Inactivated Comments 11/22/2023 1:02 AM 11/25/2023 8:45 PM Care Teams Manager Ethics Relationship Specialty Start Date End Date Hernesto Joshi MD [address] [place] [address] PCP - General 06/22/16
--- OUTSIDE RECORDS SUMMARY | 2024-06-17 18:40 | XMS_ITS | Encounter Summary ---
Author Organization [facility] Address [address] [place] [address] Care Team Providers Care Bed And Breakfast Operator Name Role Phone Bernadette Cedillo MD Primary Care Provider [phone] Encounter Details Date Type Department Care Team ([facility] Contact Info) Description 06/12/2024 Orders Only [facility] Oncology and Hematology [facility] [address] [place] [address] David Michaud MD [address] [place], [place] [address] [address] [place] [address] Social History Tobacco Use Types Packs/Day Years Used Date Smoking Tobacco: Every Day Cigarettes 1 55 Smokeless Tobacco: Never Alcohol Use Standard Drinks/Week Comments No 0 (1 standard drink = 0.6 oz pur e alcohol) Comments No Sex and Gender Information Value Date Recorded Sex Assigned at Not on file Legal Sex Female 2:13 PM 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 Contact Info) Description 06/19/2024 8:30 AM CDT Office Visit [facility] Oncology and Hematology - [address] [place] [address] David Michaud MD [facility] [address] [place] [address] documented as of this encounter Procedures Procedure Name Priority Date/Time Associated Diagnosis Comments CANCER ANTIGEN 15-3 Routine 06/11/2024 9 :44 AM CDT COMPREHENSIVE METABOLIC PANEL Routine 06/11/2024 8:56 AM CDT documented in this encounter Results * CANCER ANTIGEN 15-3 (06/11/2024 9:44 AM CDT) Blood us David Michaud MD CHEMISTRY ORDERABLES Final Resu lt * COMPREHENSIVE METABOLIC PANEL (06/11/2024 8:56 AM CDT) Blood us David Michaud MD CHEMISTRY ORDERABLES Final Resu lt documented in this encounter Visit Diagnoses Not on filedocumented in this encounter Care Teams Bed And Breakfast Operator Relationship Specialty Start Date End Date Bernadette Cedillo MD [address] [place] [address] PCP - General Family Practice 06/30/22 documented as of this encounter
--- OUTSIDE RECORDS SUMMARY | 2024-06-17 18:40 | XMS_ITS | Encounter Summary ---
Author Organization [facility] Address [address] [place] [address] Care Team Providers Care Manager Primary Care Name Role Phone Bernadette Cedillo MD Primary Care Provider [phone] Encounter Details Date Type Department Care Team (Late st Contact Info) Description 11/10/2022 Lab Requisition [facility] - Pathology Lab [address] [place] [address] Rocco Roblero MD [address] [address] Anemia, unspecified Social History Tobacco Use Types Packs/Day Years Used Date Smoking Tobacco: Never Assessed Comments Unknown Sex and Gender Information Value Date Recorded Sex Assigned at Not on file 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 Gender Identity Not on file Sexual [...] AM CDT) Case Report Flow Cytometry Case: [id number] Authorizing Provider: Rocco Roblero MD Collected: 11/10/2022 09:00 AM Ordering Location: [facility] Care Pathology Lab Received: 11/10/2022 11:47 AM Pathologist: Flaco Dejesus MD Specimen: Bone Marrow 11/10/2022 1:57 PM CDT [facility] PATH[facility] Final Diagnosis Bone marrow, flow cytometric immunophenotypic analysis: - no clonal B-cell population or increase in blasts - small population of myeloid blasts (3% of events) and of hematogones (2%) identified - see interpretation 11/10/2022 1:57 PM [facility] PATHOLOGY LAB Flow Cytometry Interpretation Viability: 86% Barrett: lymphocytes 10%, dimCD45 12%, granulocytes 72%, monocytes 5%. Lymphocytes: - B-cells (16% of lymphocyte gate): polytypic by [place]:lambda light chain expression (K:L 2:1) - T-cells (94%): no immunophenotypic aberrancy detected Dim CD45 gate: - Blasts: detected, 3% of all events, express CD34, CD13, CD33 with child care director pattern of maturation - Hematogones: detected, 2% of all events, CD19 and CD10 A bone marrow aspirate smear prepared from the flow cytometry specimen has been reviewed for quality nurse purposes. 11/10/2022 1:57 PM [facility] PATHOLOGY LAB Flow Cytometry Results Differential Result Comment Flow Cell Count /uL 84,000 Total Viability % 86.0 Lymphocytes % 10 Dim CD45 Region % 12 Monocytes % 5 Granulocytes % 72 11/10/2022 1:57 PM [facility] PATHOLOGY LAB Reason for test Anemia, unspecified 285.9 11/10/2022 1:57 PM [facility] PATHOLOGY LAB Client Specimen ID # [id number] 11/10/2022 1:57 PM [facility] PATHOLOGY LAB Number of markers 10 were performed. A-2 Flow CD10 A-3 Flow CD13 A-5 Flow CD20 A-1 Flow CD5 A-4 Flow CD19 A-6 Flow CD33 A-7 Flow CD34 A-8 Flow CD45 A-9 [place]+CD19+ A-10 Lambda+CD19+ 11/10/2022 1:57 PM [facility] PATHOLOGY LAB Pathologist Location at [facility] 11/10/2022 1:57 PM [facility] PATHOLOGY LAB Disclaimer Test performed at [facility], [address] [place] [address], [address]. The established laboratory minimum viability is 70%. [...] complexity clinical testing. 11/10/2022 1:57 PM CDT [facility] PATHOLOGY LAB Embedded Images 1:57 PM CDT [facility] PATHOLOGY LAB Pathology/Cytolo gy BONE MARROW SPECIMEN / Unknown 11/10/2022 9:00 AM CDT 11/10/2022 11:47 AM CDT Rocco Roblero MD LAB - PATHOLOGY/CYTOLOGY ORDERAB LES Final Result [facility] PATHOLOGY LAB [address] [phone] documented in this encounter Visit Diagnoses Diagnosis Anemia, unspecified documented in this encounter Care Teams Manager Primary Care Relationship Specialty Start Date End Date Bernadette Cedillo MD [address] [place] [address] PCP - General 06/22/21 documented as of this encounter
--- OUTSIDE RECORDS SUMMARY | 2024-06-17 18:40 | XMS_ITS | Referral Summary ---
Author Organization [facility] Address [address] [place] [address] Care Team Providers Care Beamer Operator Name Role Phone Hernesto Joshi MD Primary Care Provider [phone] Allergies Active Allergy Reactions Criticality Noted Date [...] 1 tablet by mouth daily Active vitamins A,C,P-gmlx-xvshyq (ICAPS) 4,296 mcg-226 mg-90 mg capsule Take [...] Given: Not Answered Comments:0.5ppd x 50 years [facility] Utilities Answer Date Recorded In the past 12 months has th e [employer], gas, oil, or water [employer] threatened to shut off services in your [...] any clubs o r organizations such as confucianist groups, unions, fraternal or athletic groups, or [...] time in the past 12 m [facility], were you homeless or living in [...] on file Legal Sex Female 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 Gender Identity Female 11/22/2023 9:01 AM CDT [...] on file Insurance MEDICARE [employer]RO[employer] MEDICARE [employer] Advance Directives For more information, please contact: [phone] Documents on File Type Date Recorded Patient Production Grip Expl anation ADVANCE DIRECTIVE 11/27/2023 12:53 PM Pow er of Woodwork Salvage Inspector-Medical * LIMITED - No CPR (Latest Code Status on File) Date Activated Date Inactivated Comments 11/22/2023 1:02 AM 11/25/2023 8:45 PM Care Teams Beamer Operator Relationship Specialty Start Date End Date Hernesto Joshi MD [address] [place] [address] PCP - General 06/22/16
--- OUTSIDE RECORDS SUMMARY | 2024-06-17 18:40 | XMS_ITS | Encounter Summary ---
Author Organization [facility] Address [address] [place] [address] Care Team Providers Care It Quality Analyst Name Role Phone Bernadette Cedillo MD Primary Care Provider [phone] Encounter Details Date Type Department Care Team (Late st Contact Info) Description 11/14/2022 Lab Requisition [facility] - Pathology Lab [address] [place] [address] Rocco Roblero MD [address] [address] Illness, unspecified Social History Tobacco Use Types Packs/Day Years Used Date Smoking Tobacco: Never Assessed Comments Unknown Sex and Gender Information Value Date Recorded Sex Assigned at Not on file 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
--- OUTSIDE RECORDS SUMMARY | 2024-06-17 18:40 | XMS_ITS | Clinical Summary ---
Author Organization [facility] Address [address] [place] [address] Care Team Providers Care Electric Spot Welder Name Role Phone Bernadette Ceidllo MD Primary Care Provider [phone] Source Comments [facility],non-owned Affiliates and Associated Physician Practices is amultiple site organization consisting of ambulatory clinics and hospital sitesin [place], [place], [place] and [place]. This disclosure is being madepursuant to the Care Everywhere program and may not contain all information available regarding this patient. 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
[2024-06-17 19:01] LABS: NT Pro B Type Natriuretic Pept 640 pg/mL (19.9-100)
--- NOTE | 2024-06-17 19:04 | ED.GENADULT ---
HPI - General Adult General Chief complaint: Shortness of Breath/Dyspnea Stated complaint: sob Time Seen by Provider: 06/17/24 18:20 History of Present Illness HPI narrative: Patient is a 78-year-old female who presents ER with shortness of breath and weakness. Worsening over last 2 days. History of lung cancer in the past. Requires 4 L of oxygen at rest and 6 L with exertion. She has had inability to get up from a over last days. She has fallen. Her head a couple days ago. She is not on blood thinners. She has chronic anemia and is supposed to get Procrit injections but has not had one recently. Sees Dr. Michaud. Related Data Home Medications Medication Instructions Recorded Confirmed Last Taken Type aspirin 81 mg tablet,delayed 81 mg PO DAILY 01/03/19 05/25/24 03/11/24 History release (Ian Low Dose Aspirin) gmkcfbvi-tvhxbov-pkdf-lutein tablet 1 tablet PO DAILY 06/04/19 05/25/24 03/11/24 History cholecalciferol (vitamin D3) 25 25 mcg PO DAILY 05/12/21 05/25/24 03/11/24 History mcg (1,000 unit) capsule vit C 250 mg-vit E 90 mg-zinc 40 1 tablet PO BID 06/30/22 05/25/24 03/11/24 History mg-copper 1 iz-vlwdcy-izlrns capsule (PreserVision AREDS-2) anastrozole 1 mg tablet 1 mg PO DAILY 07/14/22 05/25/24 03/11/24 History ipratropium 0.5 mg-albuterol 3 mg 3 ml inhalation BID 11/09/22 05/25/24 11/09/22 History (2.5 mg base)/3 mL nebulization soln ascorbate calcium (vitamin C) 500 500 mg PO DAILY 12/29/22 05/25/24 03/11/24 History mg tablet ferrous sulfate 325 mg (65 mg 650 mg PO DAILY 12/29/22 05/25/24 03/11/24 History iron) tablet (FeroSul) palbociclib 100 mg capsule 100 mg PO DAILY 07/18/23 05/25/24 Unknown History (Ibrance) acetaminophen 500 mg tablet 1,000 mg PO BID pain 03/11/24 05/25/24 05/15/24 History cholestyramine-aspartame 4 gram 1 ea PO TIDWM PRN IBS 03/11/24 05/25/24 Unknown History oral powder for susp in a packet (Prevalite) roflumilast 250 mcg tablet 250 mcg PO EVERY OTHER DAY 05/22/24 05/25/24 Unknown History (Daliresp) varenicline tartrate 0.03 mg/spray 1 spray intranasal DAILY 05/22/24 05/25/24 Unknown History metered nasal spray (Tyrvaya) vitamin B complex 1 tablet PO DAILY 05/22/24 05/25/24 Unknown History Allergies Allergy/AdvReac Type Severity Reaction Status Date / Time bupropion (From Wellbutrin) Allergy Intermediate Rash Verified 06/17/24 17:31 adhesive tape Allergy Unknown BLISTERS Verified 06/17/24 17:31 Bleach (Sodium Hypochlorite) Allergy Unknown Itching Verified 06/17/24 17:31 benzocaine (From Tigan (with AdvReac Unknown Unknown Verified 06/17/24 17:31 benzocaine)) trimethobenzamide AdvReac Unknown N/V Verified 06/17/24 17:31 nickel AdvReac Itching Verified 06/17/24 17:31 [facility] Past Medical History Medical History Acute and chronic respiratory failure with hypoxia Hypertension Pleural effusion Chronic renal insufficiency, stage III (moderate) Pneumonia PVD (peripheral vascular disease) Colon polyp Psoriatic arthritis Dependence on continuous supplemental oxygen Other specified counseling GERD (gastroesophageal reflux disease) Tobacco abuse Lung cancer Encounter for medication management Neuropathy Anxiety Arthritis Breast cancer COPD (chronic obstructive pulmonary disease) Irritable bowel disease Surgical History Surgical History S/P lumpectomy of breast History of tonsillectomy Hx of cholecystectomy History of liver biopsy H/O cataract extraction History of appendectomy History of knee replacement History of carpal tunnel release History of lung surgery Family History Family History Mother Diabetes mellitus Family history of lung cancer Family history of malignant neoplasm of uterus Family history of psoriasis Family history of malignant neoplasm Sibling Diabetes mellitus Father Family history of chronic obstructive pulmonary disease Family history of lung cancer Hypertension Family history of cardiovascular disease Grandparent Family history of malignant neoplasm of uterus Family history of coronary artery disease Social History Social History Smoking packs per day: 0.5 Smoking cigarettes per day: 10.0 Years smoked: 50 Smoking pack-years: 25.00 Smoking status: Former smoker Second hand tobacco smoke exposure: Yes Smoking end date: 04/22/24 Alcohol intake: never Substance use: never Substance use type: does not use Do You Feel Safe in your Home?: Yes Lack of Transportation: No Lack of Food: Never True Current Housing: I Have Housing Concerned About Future Housing: No Difficulty Paying Gas/Electric Bills: No Difficulty Paying for Meds: No Currently Unemployed: No Education: High School Diploma/GED Difficulty w/ Childcare or Family Care: No Living arrangements: with family Occupation/Education: retired Gender identity (if verbalized by the patient): Female Spiritual care concerns: No (Evangelical) Agree to blood products: Yes Exam Narrative: GENERAL: Well-appearing, well-nourished, and in no acute distress. HEAD: Normocephalic, atraumatic. ENT: Mucous membranes moist. NECK: Supple. CHEST: Clear to auscultation. No respiratory distress. HEART: Regular rate and rhythm. Normal peripheral pulses. ABDOMEN: Soft, nontender, nondistended. Firm stool in rectum. Dark in appearance but looks like stool from iron tablets. Guaiac positive. No gross blood. EXTREMITIES: Normal range of motion. No edema. SKIN: Warm, dry, no rash. NEURO: Alert and oriented x3. PSYCH: Normal mood and affect. Course Course Emergency Course: Patient resting comfortably. Admit to hospitalist service for blood transfusion and further evaluation. Vital Signs Vital signs: Vital Signs Pulse Rate 110 H 06/17/24 17:01 Respiratory Rate 20 06/17/24 17:01 Blood Pressure 131/64 06/17/24 17:01 Pulse Oximetry 97 06/17/24 17:01 Oxygen Delivery Nasal Cannula 06/17/24 17:01 Oxygen Flow Rate 4 06/17/24 17:01 Temperature 100.7 F H 06/17/24 21:30 Pulse Rate 99 06/17/24 21:30 Respiratory Rate 24 H 06/17/24 21:30 Blood Pressure 157/80 H 06/17/24 21:30 Pulse Oximetry 96 06/17/24 21:30 Oxygen Delivery Nasal Cannula 06/17/24 17:30 Oxygen Flow Rate 4 06/17/24 17:30 Medical Decision Making Vital Signs Vital Signs: Vital Signs Pulse Rate 110 H 06/17/24 17:01 Respiratory Rate 20 06/17/24 17:01 Blood Pressure 131/64 06/17/24 17:01 Pulse Oximetry 97 06/17/24 17:01 Oxygen Delivery Nasal Cannula 06/17/24 17:01 Oxygen Flow Rate 4 06/17/24 17:01 Temperature 100.7 F H 06/17/24 21:30 Pulse Rate 99 06/17/24 21:30 Respiratory Rate 24 H 06/17/24 21:30 Blood Pressure 157/80 H 06/17/24 21:30 Pulse Oximetry 96 06/17/24 21:30 Oxygen Delivery Nasal Cannula 06/17/24 17:30 Oxygen Flow Rate 4 06/17/24 17:30 Lab Data 06/17/24 17:27 06/17/24 17:26 Labs: Lab Results 06/17/24 06/17/24 06/17/24 Range/Units 17:26 17:27 18:10 WBC 7.2 (4.5-10.0) K/mm3 RBC 1.62 L (4.2-5.4) M/mm3 Hgb 4.7 L* D (12.0-15.0) g/dL Hct 16.5 L* (37.0-47.0) % MCV 101.9 H (80-100) fl MCH 29.0 (26-34) pg MCHC 28.5 L (32-36) g/dl RDW 15.1 H (11.5-14.5) % Plt Count 189 (150-375) k/mm3 MPV 10.2 (7.4-10.4) fl Immature Gran % (Auto) 0.8 H (0-0.5) % Neut % (Auto) 75.9 H (45.5-73.1) % Lymph % (Auto) 8.2 L (18.3-44.2) % [place] % (Auto) 9.8 H (2.6-8.5) % Eos % (Auto) 5.0 H (0-4.4) % Baso % (Auto) 0.3 (0.2-1.2) % Lymph # (Auto) 0.59 L (0.9-3.2) K/mm3 [place] # (Auto) 0.7 H (0.1-0.6) K/mm3 Eos # (Auto) 0.4 H (0-0.3) K/mm3 Baso # (Auto) 0.0 (0.0-0.1) K/mm3 Abs Immat Gran (auto) 0.06 H (0.00-0.031) K/mm3 Absolute Neuts (auto) 5.4 (1.3-6.7) K/mm3 Absolute Nucleated RBC 0.040 H (0.0-0.012) K/mm3 Band Neutrophils % Not Reportable Nucleated RBC % 0.6 H (0.0-0.2) % Platelet Estimate Adequate (Adequate) Hypochromasia 2+ Anisocytosis 2+ Microcytosis 2+ (NORMAL) Schistocytes None seen Sodium 139 (137-145) mmol/L Potassium 4.1 (3.4-5.0) mmol/L Chloride 100 (98-107) mmol/L Carbon Dioxide 36 H (22-30) mmol/L Anion Gap 3 L (4-12) mmol/L BUN 26 H (7-17) mg/dL Creatinine 1.28 H (0.7-1.0) mg/dL Estim Creat Clear Calc 30 ml/min Estimated GFR 41 L (59 - ) Glucose 107 (65-110) mg/dL Calcium 10.7 H (8.4-10.2) mg/dL Total Bilirubin 0.3 (0.2-1.3) mg/dL AST 21 (14-36) U/L ALT 15 (6-35) U/L Alkaline Phosphatase 96 (38-126) U/L NT-Pro-B Natriuret Pep 640 H (19.9-100) pg/mL Total Protein 6.0 L (6.3-8.2) g/dL Albumin 3.1 L (3.5-5.1) g/dL Blood Type O Positive Antibody Screen Negative Crossmatch See Detail Critical Care Time Critical Care Time Critical Care Time: Yes Total Critical Care Time: 35 Discharge Plan Discharge Clinical Impression: Anemia Patient Disposition: Still a Patient Condition: Stable
--- NOTE | 2024-06-17 19:23 | PC.NURSE ---
family verbalized that patient is a limb alert to left arm - pt had iv access obtained by ems in left arm. Pt IV removed and new iv started rt ac 18g sliv.
[2024-06-17] MEDS: SODIUM CHLORIDE 0.9% IV 250 ML 30 ML IV CONT (20:33)
[2024-06-17] MEDS: TUBING, BLOOD PLUM PUMP TUBING 1 EACH XX (20:33)
--- NOTE | 2024-06-17 22:41 | ADMGEN ---
This patient, May, was admitted to 3 Medical Room 346-01. Patient/family oriented to hospital policies and general routines including ID bracelet, bed and alarms, visiting hours, pain management, procedures, bathroom and other care routines, personal items, smoking policy, room service/diet, and visiting hours. Information on how to activate the Rapid Response Team has been discussed. Patient/Family are encouraged to report perceived risks to care and to ask questions if they do not understand what they are told or what they should do.
--- NOTE | 2024-06-17 22:53 | P.HP_ITS ---
H&P: HPI History of Present Illness Date/Time: 06/17/24 22:53 Chief Complaint: Dyspnea and weakness Narrative: This very pleasant 78-year-old female patient with past medical history of lung cancer not currently receiving any chemotherapy or immunotherapy, chronic anemia, hypertension, pleural effusion, chronic kidney disease stage 3, GERD, supplemental oxygen of chronic use, anxiety, neuropathy, COPD, IBS and previous breast cancer status post lumpectomy of the breast, cholecystectomy, appendectomy and previous lobectomy comes to the emergency room with complaints of having increasing dyspnea. Patient is very forgetful and it is difficult to get straight answers from her for her HPI put her son kidney is at the bedside to provides a lot of the historical information. Apparently at baseline patient wears 4 L of supplemental oxygen at rest and over the past few weeks she has had increased dyspnea and weakness but specifically over the past 24 hours. Her increased dyspnea has limited her mobility and has caused her even to follow hit her head. There was no loss of consciousness and she has no other acute complaints from the fall. Dr. Michaud is the oncologist that manages her history of cancer as well as her anemia and she routinely receives Procrit injections from him, however due to a recent hospitalization or inpatient stay somehow there was a mixup in patient's routine appointments for her Procrit injections were canceled. One week ago she went for an appointment in her hemoglobin was 7.9 and did not receive any Procrit. Over the course of the past week then she has become increasingly weak. Patient is without any acute complaints of new pain. In the emergency room workup was performed that demonstrates an acute anemia with H&H of 4.7/16.5, normal wbc's at 7.2, platelets of 189, unremarkable metabolic panel. Vital signs were stable and chest x-ray demonstrating mild pulmonary vascular congestion without focal infiltrate or effusion. Patient is receiving blood transfusion was being admitted to the hospital in the setting in Oncology for Dr. Michaud will be consulted. Review of Systems Review of Systems: All systems reviewed & are unremarkable except as noted in HPI and below PMFSH Past Medical History Medical History Acute and chronic respiratory failure with hypoxia Hypertension Pleural effusion Chronic renal insufficiency, stage III (moderate) Pneumonia PVD (peripheral vascular disease) Colon polyp Psoriatic arthritis Dependence on continuous supplemental oxygen Other specified counseling GERD (gastroesophageal reflux disease) Tobacco abuse Lung cancer Encounter for medication management Neuropathy Anxiety Arthritis Breast cancer COPD (chronic obstructive pulmonary disease) Irritable bowel disease Surgical History Surgical History S/P lumpectomy of breast History of tonsillectomy Hx of cholecystectomy History of liver biopsy H/O cataract extraction History of appendectomy History of knee replacement History of carpal tunnel release History of lung surgery Family History Family History Mother Diabetes mellitus Family history of lung cancer Family history of malignant neoplasm of uterus Family history of psoriasis Family history of malignant neoplasm Sibling Diabetes mellitus Father Family history of chronic obstructive pulmonary disease Family history of lung cancer Hypertension Family history of cardiovascular disease Grandparent Family history of malignant neoplasm of uterus Family history of coronary artery disease Social History Social History Smoking packs per day: 0.5 Smoking cigarettes per day: 10.0 Years smoked: 50 Smoking pack-years: 25.00 Smoking status: Former smoker Second hand tobacco smoke exposure: Yes Smoking end date: 04/22/24 Alcohol intake: never Substance use: never Substance use type: does not use Do You Feel Safe in your Home?: Yes Lack of Transportation: No Lack of Food: Never True Current Housing: I Have Housing Concerned About Future Housing: No Difficulty Paying Gas/Electric Bills: No Difficulty Paying for Meds: No Currently Unemployed: No Education: High School Diploma/GED Difficulty w/ Childcare or Family Care: No Living arrangements: with family Occupation/Education: retired Gender identity (if verbalized by the patient): Female Spiritual care concerns: Yes Agree to blood products: Yes Meds Home Medications and Allergies Home Medications Medication Instructions Recorded Confirmed Type aspirin 81 mg tablet,delayed 81 mg PO DAILY 01/03/19 05/25/24 History release (Ian Low Dose Aspirin) imhdpmtn-mexbefw-tttb-lutein tablet 1 tablet PO DAILY 06/04/19 05/25/24 History cholecalciferol (vitamin D3) 25 25 mcg PO DAILY 05/12/21 05/25/24 History mcg (1,000 unit) capsule vit C 250 mg-vit E 90 mg-zinc 40 1 tablet PO BID 06/30/22 05/25/24 History mg-copper 1 kv-khukul-idhwsu capsule (PreserVision AREDS-2) anastrozole 1 mg tablet 1 mg PO DAILY 07/14/22 05/25/24 History ipratropium 0.5 mg-albuterol 3 mg 3 ml inhalation BID 11/09/22 05/25/24 History (2.5 mg base)/3 mL nebulization soln ascorbate calcium (vitamin C) 500 500 mg PO DAILY 12/29/22 05/25/24 History mg tablet ferrous sulfate 325 mg (65 mg 650 mg PO DAILY 12/29/22 05/25/24 History iron) tablet (FeroSul) budesonide 160 mcg-glycopyr 9 See Rx Instructions .Route 04/11/23 05/25/24 Rx mcg-formot 4.8 mcg/actuation HFA .COMPLEX #10.7 grams inhaler (Breztri Aerosphere) ixekizumab 80 mg/mL subcutaneous See Rx Instructions .Route 06/22/23 05/25/24 Rx auto-injector (Taltz Autoinjector) .COMPLEX #3 mL palbociclib 100 mg capsule 100 mg PO DAILY 07/18/23 05/25/24 History (Ibrance) pregabalin 150 mg capsule 150 mg PO DAILY #90 caps 09/13/23 05/25/24 Rx folic acid 1 mg tablet 1 mg PO DAILY #90 tabs 01/26/24 05/25/24 Rx acetaminophen 500 mg tablet 1,000 mg PO BID pain 03/11/24 05/25/24 History cholestyramine-aspartame 4 gram 1 ea PO TIDWM PRN IBS 03/11/24 05/25/24 History oral powder for susp in a packet (Prevalite) quetiapine 25 mg tablet 25 mg PO QHS #90 tabs 04/15/24 05/25/24 Rx roflumilast 250 mcg tablet 250 mcg PO EVERY OTHER DAY 05/22/24 05/25/24 History (Daliresp) varenicline tartrate 0.03 mg/spray 1 spray intranasal DAILY 05/22/24 05/25/24 History metered nasal spray (Tyrvaya) vitamin B complex 1 tablet PO DAILY 05/22/24 05/25/24 History duloxetine 30 mg capsule,delayed 30 mg PO DAILY #30 caps 05/27/24 Rx release amoxicillin 875 mg-potassium 1 tablet PO Q12H #28 tabs 06/07/24 Rx clavulanate 125 mg tablet diclofenac sodium 1 % topical gel 2 g topical QID PRN pain #100 grams 06/07/24 Rx (Arthritis Pain (diclofenac)) doxycycline hyclate 100 mg tablet 100 mg PO Q12HR #28 tabs 06/07/24 Rx duloxetine 30 mg capsule,delayed 30 mg PO DAILY #0 caps 06/07/24 Rx release (Cymbalta) sennosides 8.6 mg-docusate sodium 2 tab PO BID #0 tabs 06/07/24 Rx 50 mg tablet (Senokot-S) Allergies Allergy/AdvReac Type Severity Reaction Status Date / Time bupropion (From Wellbutrin) Allergy Intermediate Rash Verified 06/17/24 17:31 adhesive tape Allergy Unknown BLISTERS Verified 06/17/24 17:31 Bleach (Sodium Hypochlorite) Allergy Unknown Itching Verified 06/17/24 17:31 benzocaine (From Tigan (with AdvReac Unknown Unknown Verified 06/17/24 17:31 benzocaine)) trimethobenzamide AdvReac Unknown N/V Verified 06/17/24 17:31 nickel AdvReac Itching Verified 06/17/24 17:31 Vital Signs Vital Signs - 24 hr 06/17/24 17:01 06/17/24 17:19 06/17/24 17:24 Temperature Pulse Rate 110 H 107 H Respiratory Rate 20 Blood Pressure 131/64 Pulse Oximetry 97 98 Oxygen Delivery Nasal Cannula Nasal Cannula Oxygen Flow Rate 4 4 06/17/24 17:30 06/17/24 20:03 06/17/24 20:30 Temperature 99.4 F 101.5 F H Pulse Rate 105 H 103 H Respiratory Rate 19 21 H Blood Pressure 143/61 H 132/70 Pulse Oximetry 97 95 94 Oxygen Delivery Nasal Cannula Oxygen Flow Rate 4 06/17/24 21:30 Temperature 100.7 F H Pulse Rate 99 Respiratory Rate 24 H Blood Pressure 157/80 H Pulse Oximetry 96 Oxygen Delivery Oxygen Flow Rate Exam Const: General: comfortable and no acute distress Other: Pleasant, elderly female patient lying supine in stretcher this time in no acute distress. She is talkative. HENMT: Face/Nose/Sinus: Normal nares present Mouth: Yes moist mucous membranes Other: Head appears atraumatic normocephalic. Eyes: General: appearance normal, both eyes and all related structures Sclera: sclerae normal Pupils: Equal, round and reactive pupils present EOM: EOMs intact bilaterally Neck: Neck: supple and no JVD Chest: Other: Nontender to palpation, no crepitus or edema Resp: Effort & Inspection: normal respiratory effort Auscultation: clear to auscultation bilaterally Cardio: Rate: regular rate Rhythm: regular rhythm Heart sounds: no gallops, no murmurs and no rubs GI: Inspection: non-distended GI Palp: Yes Soft to palpation and No Tenderness to palpation present (GI) Auscultation: normal bowel sounds Skin: General skin exam: No normal color (Pale) Lesions: no lesions noted Rashes: no rashes noted Wounds: no wounds Neuro: Speech: normal speech Motor exam (neuro): Abnormal motor strength present (Generalized, nonfocal weakness) Sensory Exam: normal sensation Other: Did not test gait Extrem: General: normal to inspection, no edema and no pedal edema Psych: Mental Status: mental status grossly normal Affect: normal affect H&P: Results Labs Labs: Short CBC 06/17/24 Range/Units 17:27 WBC 7.2 (4.5-10.0) K/mm3 Hgb 4.7 L* D (12.0-15.0) g/dL Hct 16.5 L* (37.0-47.0) % Plt Count 189 (150-375) k/mm3 BMP 06/17/24 17:26 Sodium 139 Potassium 4.1 Chloride 100 Carbon Dioxide 36 H BUN 26 H Creatinine 1.28 H Glucose 107 Calcium 10.7 H Liver Function 06/17/24 Range/Units 17:26 Total Bilirubin 0.3 (0.2-1.3) mg/dL AST 21 (14-36) U/L ALT 15 (6-35) U/L Alkaline Phosphatase 96 (38-126) U/L Albumin 3.1 L (3.5-5.1) g/dL Assessment and Plan Assessment and plan (1) Anemia: Code(s): D64.9 - Anemia, unspecified Status: Acute Assessment and Plan: * Acute on chronic * Consult Dr. Michaud * Check iron panel * Transfuse 2 units packed red blood cells * Monitor and trend labs and vital signs * Fall precautions * telemetry * Will defer any Procrit ordering to oncology consult. (2) Lung cancer: Code(s): C34.90 - Malignant neoplasm of unspecified part of unspecified bronchus or lung Status: Chronic Assessment and Plan: * Chronic. Not currently under any treatment. (3) H/O malignant neoplasm of breast: Code(s): Z85.3 - Personal history of malignant neoplasm of breast Status: Chronic Assessment and Plan: * Chronic not currently under any treatment (4) COPD (chronic obstructive pulmonary disease): Code(s): J44.9 - Chronic obstructive pulmonary disease, unspecified Status: Chronic Assessment and Plan: * Chronic and not acutely in exacerbation. * Suspect patient's dyspnea was from her acute anemia * Continue supplemental oxygen the patient wears at home * Continue home medications once they have been confirmed * Monitor vital signs (5) Dependence on continuous supplemental oxygen: Code(s): Z99.81 - Dependence on supplemental oxygen Status: Chronic Assessment and Plan: * See 4. (6) Hypertension: Code(s): I10 - Essential (primary) hypertension Status: Chronic Assessment and Plan: * Monitor and trend labs and vital signs * Continue home medications once they have been confirmed. (7) Anxiety and depression: Code(s): F41.9 - Anxiety disorder, unspecified; F32.9 - Major depressive disorder, single episode, unspecified Status: Chronic Assessment and Plan: * Continue home medications once a been confirmed. (8) GERD (gastroesophageal reflux disease): Qualifiers: Esophagitis presence: without esophagitis Qualified Code(s): K21.9 - Gastro-esophageal reflux disease without esophagitis Code(s): K21.9 - Gastro-esophageal reflux disease without esophagitis Status: Chronic Assessment and Plan: * Continue home medications once a been confirmed. Quality VTE Prophylaxis VTE prophylaxis: mechanical ordered Hospitalist MIPS Advance Care Plan I have confirmed that the patient's Advanced Care Plan is present, code status is documented, or surrogate decision maker is listed in patient medical record.: Yes Medication Reconciliation I have utilized all available resources to obtain, update and review the patients current medications (includes all prescriptions, OTC, herbals, cannabis, and nutritional supplements).: Yes
[2024-06-17 23:40] LABS: Iron 59 ug/dL (37-170)
[2024-06-17 23:42] LABS: Partial Thromboplastin Time 33.8 Seconds (22.3-36.8)
[2024-06-17] MEDS: SODIUM CHLORIDE 0.9% IV 250 ML 30 ML (23:42)
[2024-06-18] VITALS (14 sets, daily range): BP systolic 122–154; BP diastolic 53–85; PULSE 83–94; RESP 14–18; TEMP 36.2–37.7; O2SAT 94–100
[2024-06-18 00:04] LABS: Percent Iron Saturation 22 % (20-50)
[2024-06-18 05:57] LABS: Basophils Percent Auto 0.4 % (0.2-1.2); Eosinophils Absolute Auto 0.4 K/mm3 (0-0.3); Eosinophils Percent Auto 5.5 % (0-4.4); Hematocrit 24.3 % (37.0-47.0); Hemoglobin 7.5 g/dL (12.0-15.0); Immature Granulocyte Absolute 0.04 K/mm3 (0.00-0.031); Immature Granulocyte Percent A 0.6 % (0-0.5); Lymphocytes Absolute Auto 0.76 K/mm3 (0.9-3.2); Mean Corpuscular HGB Conc 30.9 g/dl (32-36); Mean Corpuscular Hemoglobin 28.6 pg (26-34); Mean Corpuscular Volume 92.7 fl (80-100); Mean Platelet Volume 10.2 fl (7.4-10.4); Monocytes Absolute Auto 0.7 K/mm3 (0.1-0.6); Monocytes Percent Auto 9.9 % (2.6-8.5); Neutrophils Percent Auto 72.6 % (45.5-73.1); Nucleated Red Blood Cells Perc 0.4 % (0.0-0.2); Platelet Count Result 193 k/mm3 (150-375); Red Blood Count 2.62 M/mm3 (4.2-5.4); Red Cell Distribution Width 17.2 % (11.5-14.5); White Blood Count 6.9 K/mm3 (4.5-10.0)
[2024-06-18 06:08] LABS: Alanine Aminotransferase 14 U/L (6-35); Albumin Level 3.1 g/dL (3.5-5.1); Alkaline Phosphatase 91 U/L (38-126); Anion Gap 2 mmol/L (4-12); Aspartate Amino Transferase 21 U/L (14-36); Bilirubin,Total 0.5 mg/dL (0.2-1.3); Blood Urea Nitrogen 24 mg/dL (7-17); Calcium 10.7 mg/dL (8.4-10.2); Carbon Dioxide 35 mmol/L (22-30); Chloride 101 mmol/L (98-107); Estimated CRCL calculation 33 ml/min; Estimated Glomerular Filt Rate 41; Glucose 99 mg/dL (65-110); Magnesium 2.3 mg/dL (1.6-2.3); Potassium 4.1 mmol/L (3.4-5.0); Sodium 138 mmol/L (137-145)
--- NOTE | 2024-06-18 15:38 | PM.IMPN ---
Progress Note: A&P Assessment and Plan (1) Anemia: Code(s): D64.9 - Anemia, unspecified Status: Acute Assessment and Plan: Acute on chronic Consult Dr. Michaud Check iron panel Transfuse 2 units packed red blood cells Monitor and trend labs and vital signs Fall precautions telemetry Will defer any Procrit ordering to oncology consult. Consult GI Prior history of colonoscopy few years ago Denies upper endoscopy was done before (2) Lung cancer: Code(s): C34.90 - Malignant neoplasm of unspecified part of unspecified bronchus or lung Status: Chronic Assessment and Plan: Follows with Dr. Michaud (3) H/O malignant neoplasm of breast: Code(s): Z85.3 - Personal history of malignant neoplasm of breast Status: Chronic Assessment and Plan: Continue anastrozole (4) COPD (chronic obstructive pulmonary disease): Code(s): J44.9 - Chronic obstructive pulmonary disease, unspecified Status: Chronic Assessment and Plan: Chronic and not acutely in exacerbation. Suspect patient's dyspnea was from her acute anemia Continue supplemental oxygen the patient wears at home Continue home medications once they have been confirmed Monitor vital signs (5) Dependence on continuous supplemental oxygen: Code(s): Z99.81 - Dependence on supplemental oxygen Status: Chronic Assessment and Plan: See 4. (6) Hypertension: Code(s): I10 - Essential (primary) hypertension Status: Chronic Assessment and Plan: Monitor and trend labs and vital signs Continue home medication (7) Anxiety and depression: Code(s): F41.9 - Anxiety disorder, unspecified; F32.9 - Major depressive disorder, single episode, unspecified Status: Chronic Assessment and Plan: Continue home medications (8) GERD (gastroesophageal reflux disease): Qualifiers: Esophagitis presence: without esophagitis Qualified Code(s): K21.9 - Gastro-esophageal reflux disease without esophagitis Code(s): K21.9 - Gastro-esophageal reflux disease without esophagitis Status: Chronic Assessment and Plan: Continue home medications (9) Mastoiditis of left side: Code(s): H70.92 - Unspecified mastoiditis, left ear Status: Acute Assessment and Plan: Status post antibiotics Consulted ENT Subjective Date/time seen: 06/18/24 15:38 Interval history: In regards to anemia patient has follow-up with Dr. Barahona and receives a Procrit infusions. As per patient she underwent colonoscopy few years ago and no significant finding other than polyps. Patient never underwent upper endoscopy. During the discussion with the son he was concerned about left mastoid effusion which was not resolved after antibiotics. ENT is consulted and appreciate recommendation Review of Systems Review of Systems: All systems reviewed & are unremarkable except as noted in HPI and below Exam Const: General: comfortable and no acute distress Other: Pleasant, elderly female patient lying supine in stretcher this time in no acute distress. She is talkative. HENMT: Face/Nose/Sinus: Normal nares present Mouth: Yes moist mucous membranes Other: Head appears atraumatic normocephalic. Eyes: General: appearance normal, both eyes and all related structures Sclera: sclerae normal Pupils: Equal, round and reactive pupils present EOM: EOMs intact bilaterally Neck: Neck: supple and no JVD Chest: Other: Nontender to palpation, no crepitus or edema Resp: Effort & Inspection: normal respiratory effort Auscultation: clear to auscultation bilaterally Cardio: Rate: regular rate Rhythm: regular rhythm Heart sounds: no gallops, no murmurs and no rubs GI: Inspection: non-distended Auscultation: normal bowel sounds Skin: General skin exam: No normal color (Pale), No lesion and No rashes Lesions: no lesions noted Rashes: no rashes noted Wounds: no wounds Neuro: Cranial nerves: Yes Equal, round and reactive pupils present Speech: normal speech Motor exam (neuro): Abnormal motor strength present (Generalized, nonfocal weakness) Sensory Exam: normal sensation Other: Did not test gait Extrem: General: normal to inspection, no edema and no pedal edema Psych: Mental Status: mental status grossly normal Affect: normal affect Objective Data Vital Signs Vital Signs: Vital Signs - 24 hr 06/17/24 17:01 06/17/24 17:19 06/17/24 17:24 Temperature Pulse Rate 110 H 107 H Respiratory Rate 20 Blood Pressure 131/64 Pulse Oximetry 97 98 Oxygen Delivery Nasal Cannula Nasal Cannula Oxygen Flow Rate 4 4 06/17/24 17:30 06/17/24 20:03 06/17/24 20:30 Temperature 99.4 F 101.5 F H Pulse Rate 105 H 103 H Respiratory Rate 19 21 H Blood Pressure 143/61 H 132/70 Pulse Oximetry 97 95 94 Oxygen Delivery Nasal Cannula Oxygen Flow Rate 4 05/05/25 21:30 06/17/24 22:52 06/17/24 23:16 Temperature 100.7 F H 99.2 F 99.2 F Pulse Rate 99 97 94 Respiratory Rate 24 H 16 16 Blood Pressure 157/80 H 128/74 128/74 Pulse Oximetry 96 100 100 Oxygen Delivery Oxygen Flow Rate 06/17/24 23:22 06/17/24 23:40 06/18/24 00:00 Temperature 98.5 F Pulse Rate 96 94 Respiratory Rate 20 Blood Pressure 136/59 L Pulse Oximetry 95 94 Oxygen Delivery Nasal Cannula Oxygen Flow Rate 6 06/18/24 00:22 06/18/24 01:22 06/18/24 02:29 Temperature 98.1 F 99.9 F H 97.9 F Pulse Rate 90 92 87 Respiratory Rate 18 18 18 Blood Pressure 124/67 134/85 154/53 H Pulse Oximetry 97 100 96 Oxygen Delivery Oxygen Flow Rate 06/18/24 04:00 06/18/24 06:00 06/18/24 08:00 Temperature 97.4 F L Pulse Rate 83 83 87 Respiratory Rate 18 Blood Pressure 146/69 H Pulse Oximetry 97 Oxygen Delivery Oxygen Flow Rate 06/18/24 09:43 06/18/24 12:00 06/18/24 14:28 Temperature 97.2 F L Pulse Rate 86 90 Respiratory Rate 18 Blood Pressure 122/54 L Pulse Oximetry 94 97 Oxygen Delivery Nasal Cannula Oxygen Flow Rate 6 Intake/Output Intake/Output: Intake & Output 06/15/24 06/16/24 06/17/24 06/18/24 23:59 23:59 23:59 23:59 Intake Total 410 1380 Balance 410 1380 Meds/Results Medications: Active Medications Generic Name Dose Route Start Last Admin Trade Name Freq PRN Reason Stop Dose Admin Acetaminophen 650 mg 06/17/24 21:46 Acetaminophen 325 Mg Tablet PO Q4H PRN Mild Pain (1-3) or Fever Acetaminophen 1,000 mg 06/18/24 17:00 Acetaminophen 500 Mg Tablet PO BID [facility] Hydrocodone Bitart/Acetaminophen 1 tab 06/17/24 21:46 Hydrocodone/Acetaminophen (*Crx) 5-325 Mg Tablet PO Q4H PRN Pain Rated 4-6 Albuterol/Ipratropium 3 ml 06/18/24 17:00 Ipratropium 0.5 Mg/Albuterol Sulfate 2.5 Mg Ampul.Neb 3 Ml INHALATION BID [facility] Ascorbic Acid 500 mg 06/19/24 09:00 Ascorbic Acid 500 Mg Tablet PO DAILY [facility] Aspirin 81 mg 06/19/24 09:00 Aspirin 81 Mg Enteric Tablet PO DAILY [facility] Cholestyramine Resin gm 06/18/24 15:36 Cholestyramine Light 4 Gm Powd.Pack PO TIDWM PRN IBS Diclofenac Sodium applic 06/18/24 15:36 Diclofenac Sodium 1% 100 Gm Gel (*Bkc) TOPICAL QID PRN pain Duloxetine HCl 30 mg 06/19/24 09:00 Duloxetine Hcl 30 Mg Capsule. PO DAILY [facility] Duloxetine HCl 30 mg 06/19/24 09:00 Duloxetine Hcl 30 Mg Capsule. PO DAILY [facility] Folic Acid 1 mg 06/19/24 09:00 Folic Acid 1 Mg Tablet PO DAILY [facility] Non-Formulary Medication 1 mg 06/19/24 09:00 Anastrozole PO 07/19/24 08:59 DAILY [facility] Non-Formulary Medication 0 inhalation 06/18/24 15:45 Bbafiwmhwy-Kxatwdmk-Xhvayrolaw [Breztri Aerosphere] .ROUTE 07/18/24 15:44 .COMPLEX [facility] Non-Formulary Medication 650 mg 06/19/24 09:00 Ferrous Sulfate [Ferosul] PO 07/19/24 08:59 DAILY [facility] Non-Formulary Medication 1 spray 06/19/24 09:00 Varenicline Tartrate [Tyrvaya] NASAL 07/19/24 08:59 DAILY [facility] Non-Formulary Medication 1 tablet 06/18/24 17:00 Vit C,U-Rr-Mkvmy-Lutein-Zeaxan [Preservision Areds-2] PO 07/18/24 16:59 BID [facility] Non-Formulary Medication 1 tablet 06/18/24 17:00 Vit C,T-Mw-Npvee-Lutein-Zeaxan [Preservision Areds-2] PO 07/18/24 16:59 BID [facility] Ondansetron HCl 4 mg 06/17/24 21:46 Ondansetron Inj 4 Mg/2 Ml Vial IV PUSH Q4H PRN Nausea Pregabalin 150 mg 06/19/24 09:00 Pregabalin (*Crx) 75 Mg Capsule PO DAILY [facility] Quetiapine Fumarate 25 mg 06/18/24 21:00 Quetiapine Fumarate 25 Mg Tablet PO QHS [facility] Roflumilast 250 mcg 06/18/24 15:40 Roflumilast 250 Mcg Tablet PO EVERY OTHER DAY [facility] Vitamin B Complex cap 06/19/24 09:00 Vitamin B Complex Capsule PO DAILY [facility] Vitamin D units 06/19/24 09:00 Cholecalciferol 1,000 Units Tablet PO DAILY [facility] Radiology Results: ITS Impressions Chest X-Ray 06/17/24 17:47 IMPRESSION: Pulmonary vascular congestion, without focal infiltrate or effusion. Head CT 06/17/24 20:58 Impression: No acute intracranial hemorrhage or suspicious mass effect. Redemonstration of a left sided mastoid effusion. Labs Labs: Laboratory Results - last 24 hr 06/17/24 06/17/24 06/17/24 17:26 17:27 18:10 WBC 7.2 RBC 1.62 L Hgb 4.7 L* D Hct 16.5 L* MCV 101.9 H MCH 29.0 MCHC 28.5 L RDW 15.1 H Plt Count 189 MPV 10.2 Immature Gran % (Auto) 0.8 H Neut % (Auto) 75.9 H Lymph % (Auto) 8.2 L Henderson % (Auto) 9.8 H Eos % (Auto) 5.0 H Baso % (Auto) 0.3 Lymph # (Auto) 0.59 L Henderson # (Auto) 0.7 H Eos # (Auto) 0.4 H Baso # (Auto) 0.0 Abs Immat Gran (auto) 0.06 H Absolute Neuts (auto) 5.4 Absolute Nucleated RBC 0.040 H Band Neutrophils % Not Reportable Nucleated RBC % 0.6 H Platelet Estimate Adequate Hypochromasia 2+ Anisocytosis 2+ Microcytosis 2+ Schistocytes None seen PT INR APTT Sodium 139 Potassium 4.1 Chloride 100 Carbon Dioxide 36 H Anion Gap 3 L BUN 26 H Creatinine 1.28 H Estim Creat Clear Calc 30 Estimated GFR 41 L Glucose 107 Calcium 10.7 H Magnesium Iron TIBC % Saturation Total Bilirubin 0.3 AST 21 ALT 15 Alkaline Phosphatase 96 NT-Pro-B Natriuret Pep 640 H Total Protein 6.0 L Albumin 3.1 L C. difficile (PCR) Blood Type O Positive Antibody Screen Negative Crossmatch See Detail 06/17/24 06/18/2406/18/25 23:15 05:12 08:50 WBC 6.9 RBC 2.62 L Hgb 7.5 L Hct 24.3 L MCV 92.7 D MCH 28.6 MCHC 30.9 L RDW 17.2 H Plt Count 193 MPV 10.2 Immature Gran % (Auto) 0.6 H Neut % (Auto) 72.6 Lymph % (Auto) 11.0 L Henderson % (Auto) 9.9 H Eos % (Auto) 5.5 H Baso % (Auto) 0.4 Lymph # (Auto) 0.76 L Henderson # (Auto) 0.7 H Eos # (Auto) 0.4 H Baso # (Auto) 0.0 Abs Immat Gran (auto) 0.04 H Absolute Neuts (auto) 5.0 Absolute Nucleated RBC 0.030 H Band Neutrophils % Nucleated RBC % 0.4 H Platelet Estimate Hypochromasia Anisocytosis Microcytosis Schistocytes PT 14.0 INR 1.0 APTT 33.8 Sodium 138 Potassium 4.1 Chloride 101 Carbon Dioxide 35 H Anion Gap 2 L BUN 24 H Creatinine 1.26 H Estim Creat Clear Calc 33 Estimated GFR 41 L Glucose 99 Calcium 10.7 H Magnesium 2.3 Iron 59 TIBC 270 % Saturation 22 Total Bilirubin 0.5 AST 21 ALT 14 Alkaline Phosphatase 91 NT-Pro-B Natriuret Pep Total Protein 6.0 L Albumin 3.1 L C. difficile (PCR) Cancelled Blood Type Antibody Screen Crossmatch Quality VTE Prophylaxis VTE prophylaxis: mechanical ordered Hospitalist MIPS Advance Care Plan I have confirmed that the patient's Advanced Care Plan is present, code status is documented, or surrogate decision maker is listed in patient medical record.: Yes Medication Reconciliation I have utilized all available resources to obtain, update and review the patients current medications (includes all prescriptions, OTC, herbals, cannabis, and nutritional supplements).: Yes
[2024-06-18] MEDS: ROFLUMILAST 250 MCG TABLET PO (16:47)
[2024-06-18] MEDS: OPTI-GEN TAB 1 TABLET PO (16:47)
--- NOTE | 2024-06-18 16:50 | P.PN_ITS ---
Progress Note: A&P Assessment and Plan (1) Cerumen debris on tympanic membrane of both ears: Code(s): H61.23 - Impacted cerumen, bilateral Status: Acute (2) Abnormal findings on diagnostic imaging of other specified body structures: Code(s): R93.89 - Abnormal findings on diagnostic imaging of other specified body structures Status: Acute (3) Dysfunction of left eustachian tube: Code(s): H69.92 - Unspecified Eustachian tube disorder, left ear Status: Acute Plan 78-year-old female accidental fluid effusion in the left mastoid cavity without bone erosion of mastoid cavity , active middle ear disease, or perforation of the eardrum. -I have personally reviewed CT scan imaging and the MRI image previously done: I do not see any bony erosion in the mastoid cavity or ossicular chain both sides -the mastoid effusion could be related to eustachian tube dysfunction , and stopping cul nasal sprays advised to use -advised to use fluticasone nasal spray both nostrils 2 puffs each nostril once per day for 2 months as discharge medication . -follow-up in ENT clinic in 2 months for impacted cerumen remover and re- evaluation the tympanic membrane after with topical nasal sprays Time Spent With Patient Time with patient: less than 15 minutes Subjective Date/time seen: 06/18/24 16:50 Interval history: I Have been consulted for accidental findings of fluids in the left mastoid cavity manifested by a CT scan of the head done on as well as an MRI brain performed on 05/24/2024 Patient denies previous ear infections, here drainage, or hearing difficulty. However patient frequent impacted cerumen accumulation Patient also denies previous current ear infections as a kid. Review of Systems Review of Systems: All systems reviewed & are unremarkable except as noted in HPI and below Constitutional: Constitutional: Reports as per HPI ENT: Reports as per HPI Exam Const: General: cooperative, healthy appearing, comfortable, no acute distress, well developed, alert, awake and Physically active Orientation/consciousness: oriented to person, oriented to place, oriented to time and patient oriented x3 HENMT: Head: normocephalic and atraumatic Ears: external ears normal, TM's normal bilaterally (Some cerumen debris is covering some parts of the ear canals) and EAC's normal Face/Nose/Sinus: Normal external nose present and Normal nares present Mouth: Yes Normal oral and palatal mucosa present, Yes lip normal and Yes tongue normal Other: Bilateral intact tympanic membranes no perforation could be seen. Mild dull tympanic membrane left side without perforation, drainage, or masses Cerumen debris in the both ear canals Neck exam within normal limits Eyes: General: appearance normal, both eyes and all related structures Neck: Neck: normal visual inspection, full ROM and trachea midline Resp: Effort & Inspection: normal respiratory effort and able to speak in complete sentences Cardio: Rate: regular rate Neuro: General: oriented to person, oriented to place, oriented to time and patient oriented x3 Objective Data Vital Signs Vital Signs: Vital Signs - 24 hr 06/17/24 17:01 06/17/24 17:19 06/17/24 17:24 Temperature Pulse Rate 110 H 107 H Respiratory Rate 20 Blood Pressure 131/64 Pulse Oximetry 97 98 Oxygen Delivery Nasal Cannula Nasal Cannula Oxygen Flow Rate 4 4 06/17/24 17:30 06/17/24 20:03 06/17/24 20:30 Temperature 37.4 C 38.6 C H Pulse Rate 105 H 103 H Respiratory Rate 19 21 H Blood Pressure 143/61 H 132/70 Pulse Oximetry 97 95 94 Oxygen Delivery Nasal Cannula Oxygen Flow Rate 4 06/17/24 21:30 06/17/24 22:52 06/17/24 23:16 Temperature 38.2 C H 37.3 C 37.3 C Pulse Rate 99 97 94 Respiratory Rate 24 H 16 16 Blood Pressure 157/80 H 128/74 128/74 Pulse Oximetry 96 100 100 Oxygen Delivery Oxygen Flow Rate 06/17/24 23:22 06/17/24 23:40 06/18/24 00:00 Temperature 36.9 C Pulse Rate 96 94 Respiratory Rate 20 Blood Pressure 136/59 L Pulse Oximetry 95 94 Oxygen Delivery Nasal Cannula Oxygen Flow Rate 6 06/18/24 00:22 06/18/24 01:22 06/18/24 02:29 Temperature 36.7 C 37.7 C H 36.6 C Pulse Rate 90 92 87 Respiratory Rate 18 18 18 Blood Pressure 124/67 134/85 154/53 H Pulse Oximetry 97 100 96 Oxygen Delivery Oxygen Flow Rate 06/18/24 04:00 06/18/24 06:00 06/18/24 08:00 Temperature 36.3 C L Pulse Rate 83 83 87 Respiratory Rate 18 Blood Pressure 146/69 H Pulse Oximetry 97 Oxygen Delivery Oxygen Flow Rate 06/18/24 09:43 06/18/24 12:00 06/18/24 14:28 Temperature 36.2 C L Pulse Rate 86 90 Respiratory Rate 18 Blood Pressure 122/54 L Pulse Oximetry 94 97 Oxygen Delivery Nasal Cannula Oxygen Flow Rate 6 Intake/Output Intake/Output: Intake & Output 06/15/24 06/16/24 06/17/24 06/18/24 23:59 23:59 23:59 23:59 Intake Total 410 1380 Balance 410 1380 Meds/Results Medications: Active Medications Generic Name Dose Route Start Last Admin Trade Name Freq PRN Reason Stop Dose Admin Acetaminophen 650 mg 06/17/24 21:46 Acetaminophen 325 Mg Tablet PO Q4H PRN Mild Pain (1-3) or Fever Acetaminophen 1,000 mg 06/18/24 21:00 Acetaminophen 500 Mg Tablet PO Q12HR [facility] Hydrocodone Bitart/Acetaminophen 1 tab 06/17/24 21:46 Hydrocodone/Acetaminophen (*Crx) 5-325 Mg Tablet PO Q4H PRN Pain Rated 4-6 Albuterol/Ipratropium 3 ml 06/18/24 20:00 Ipratropium 0.5 Mg/Albuterol Sulfate 2.5 Mg Ampul.Neb 3 Ml INHALATION Q12HRT [facility] Anastrozole 1 mg 06/19/24 09:00 Anastrozole (*Chemo) 1 Mg Tablet PO DAILY [facility] Ascorbic Acid 500 mg 06/19/24 09:00 Ascorbic Acid 500 Mg Tablet PO DAILY [facility] Aspirin 81 mg 06/19/24 09:00 Aspirin 81 Mg Enteric Tablet PO DAILY [facility] Cholestyramine Resin 4 gm 06/18/24 15:36 Cholestyramine Light 4 Gm Powd.Pack PO TIDWM PRN IBS Diclofenac Sodium 1 applic 06/18/24 15:36 Diclofenac Sodium 1% 100 Gm Gel (*Bkc) TOPICAL QID PRN pain Duloxetine HCl 30 mg 06/19/24 09:00 Duloxetine Hcl 30 Mg Capsule.Dr PO DAILY [facility] Ferrous Sulfate 650 mg 06/19/24 12:00 Ferrous Sulfate [address] BY MOUTH DAILY@1200 [facility] Fluticasone/Umeclidinium/Vilanterol 1 puff 06/19/24 08:00 Fluticasone/Umeclidin/Vilanter 100-62.5-25 Mcg Ellipta INHALATION DAILYRT [facility] Folic Acid 1 mg 06/19/24 09:00 Folic Acid 1 Mg Tablet PO DAILY [facility] Miscellaneous Information 0 each 06/18/24 00:01 Varenicline Nonform Can Pt Bring From Home? XX 07/18/24 00:00 CLARIFY [facility] Multivitamins/Minerals 1 tablet 06/18/24 17:00 06/18/24 16:47 Opti-Gen Tab PO 1 tablet BID [facility] Administration Non-Formulary Medication 1 spray 06/19/24 09:00 Varenicline Tartrate [Tyrvaya] NASAL 07/19/24 08:59 DAILY [facility] Ondansetron HCl 4 mg 06/17/24 21:46 Ondansetron Inj 4 Mg/2 Ml Vial IV PUSH Q4H PRN Nausea Pregabalin 150 mg 06/19/24 09:00 Pregabalin (*Crx) 75 Mg Capsule PO DAILY [facility] Quetiapine Fumarate 25 mg 06/18/24 21:00 Quetiapine Fumarate 25 Mg Tablet PO QHS [facility] Roflumilast 250 mcg 06/18/24 16:00 06/18/24 16:47 Roflumilast 250 Mcg Tablet PO 250 mcg Q48H [facility] Administration Vitamin B Complex 1 cap 06/19/24 09:00 Vitamin B Complex Capsule PO DAILY [facility] Vitamin D 1,000 units 06/19/24 09:00 Cholecalciferol 1,000 Units Tablet PO DAILY [facility] Radiology Results: ITS Impressions Chest X-Ray 06/17/24 17:47 IMPRESSION: Pulmonary vascular congestion, without focal infiltrate or effusion. Head CT 06/17/24 20:58 Impression: No acute intracranial hemorrhage or suspicious mass effect. Redemonstration of a left sided mastoid effusion. Labs Labs: Laboratory Results - last 24 hr 06/17/24 06/17/24 06/17/24 17:26 17:27 18:10 WBC 7.2 RBC 1.62 L Hgb 4.7 L* D Hct 16.5 L* MCV 101.9 H MCH 29.0 MCHC 28.5 L RDW 15.1 H Plt Count 189 MPV 10.2 Immature Gran % (Auto) 0.8 H Neut % (Auto) 75.9 H Lymph % (Auto) 8.2 L [place] % (Auto) 9.8 H Eos % (Auto) 5.0 H Baso % (Auto) 0.3 Lymph # (Auto) 0.59 L [place] # (Auto) 0.7 H Eos # (Auto) 0.4 H Baso # (Auto) 0.0 Abs Immat Gran (auto) 0.06 H Absolute Neuts (auto) 5.4 Absolute Nucleated RBC 0.040 H Band Neutrophils % Not Reportable Nucleated RBC % 0.6 H Platelet Estimate Adequate Hypochromasia 2+ Anisocytosis 2+ Microcytosis 2+ Schistocytes None seen PT INR APTT Sodium 139 Potassium 4.1 Chloride 100 Carbon Dioxide 36 H Anion Gap 3 L BUN 26 H Creatinine 1.28 H Estim Creat Clear Calc 30 Estimated GFR 41 L Glucose 107 Calcium 10.7 H Magnesium Iron TIBC % Saturation Total Bilirubin 0.3 AST 21 ALT 15 Alkaline Phosphatase 96 NT-Pro-B Natriuret Pep 640 H Total Protein 6.0 L Albumin 3.1 L C. difficile (PCR) Blood Type O Positive Antibody Screen Negative Crossmatch See Detail 06/17/24 06/18/24 06/18/24 23:15 05:12 08:50 WBC 6.9 RBC 2.62 L Hgb 7.5 L Hct 24.3 L MCV 92.7 D MCH 28.6 MCHC 30.9 L RDW 17.2 H Plt Count 193 MPV 10.2 Immature Gran % (Auto) 0.6 H Neut % (Auto) 72.6 Lymph % (Auto) 11.0 L [place] % (Auto) 9.9 H Eos % (Auto) 5.5 H Baso % (Auto) 0.4 Lymph # (Auto) 0.76 L [place] # (Auto) 0.7 H Eos # (Auto) 0.4 H Baso # (Auto) 0.0 Abs Immat Gran (auto) 0.04 H Absolute Neuts (auto) 5.0 Absolute Nucleated RBC 0.030 H Band Neutrophils % Nucleated RBC % 0.4 H Platelet Estimate Hypochromasia Anisocytosis Microcytosis Schistocytes PT 14.0 INR 1.0 APTT 33.8 Sodium 138 Potassium 4.1 Chloride 101 Carbon Dioxide 35 H Anion Gap 2 L BUN 24 H Creatinine 1.26 H Estim Creat Clear Calc 33 Estimated GFR 41 L Glucose 99 Calcium 10.7 H Magnesium 2.3 Iron 59 TIBC 270 % Saturation 22 Total Bilirubin 0.5 AST 21 ALT 14 Alkaline Phosphatase 91 NT-Pro-B Natriuret Pep Total Protein 6.0 L Albumin 3.1 L C. difficile (PCR) Cancelled Blood Type Antibody Screen Crossmatch
[2024-06-18] MEDS: ACETAMINOPHEN 500 MG TABLET 1000 MG PO (20:20)
[2024-06-18] MEDS: QUEtiapine FUMARATE 25 MG TABLET PO (20:20)
[2024-06-18] MEDS: IPRATROPIUM 0.5 MG/ALBUTEROL SULFATE 2.5 MG AMPUL.NEB 3 ML INHALATION (22:02)
[2024-06-19] VITALS (14 sets, daily range): BP systolic 124–142; BP diastolic 57–61; PULSE 77–90; RESP 18–22; TEMP 36.7–37.2; O2SAT 92–100
[2024-06-19 06:39] LABS: Hematocrit 26.1 % (37.0-47.0); Mean Corpuscular HGB Conc 30.7 g/dl (32-36); Mean Corpuscular Hemoglobin 28.6 pg (26-34); Mean Corpuscular Volume 93.2 fl (80-100); Mean Platelet Volume 9.9 fl (7.4-10.4); Platelet Count Result 204 k/mm3 (150-375); Red Cell Distribution Width 16.7 % (11.5-14.5)
[2024-06-19 06:50] LABS: Alanine Aminotransferase 13 U/L (6-35); Albumin Level 3.2 g/dL (3.5-5.1); Alkaline Phosphatase 89 U/L (38-126); Anion Gap 0 mmol/L (4-12); Aspartate Amino Transferase 20 U/L (14-36); Bilirubin,Total 0.4 mg/dL (0.2-1.3); Blood Urea Nitrogen 17 mg/dL (7-17); Calcium 11.3 mg/dL (8.4-10.2); Carbon Dioxide 38 mmol/L (22-30); Chloride 102 mmol/L (98-107); Estimated CRCL calculation 34 ml/min; Estimated Glomerular Filt Rate 43; Glucose 100 mg/dL (65-110); Sodium 140 mmol/L (137-145)
[2024-06-19] MEDS: ACETAMINOPHEN 500 MG TABLET 1000 MG PO ×2 (09:02→20:13)
[2024-06-19] MEDS: PREGABALIN (*CRX) 75 MG CAPSULE 150 MG PO (09:02)
[2024-06-19] MEDS: DULoxetine HCL 30 MG CAPSULE.DR PO (09:02)
[2024-06-19] MEDS: VITAMIN B COMPLEX CAPSULE 1 CAP PO (09:02)
[2024-06-19] MEDS: ASPIRIN 81 MG ENTERIC TABLET PO (09:02)
[2024-06-19] MEDS: CHOLECALCIFEROL 1,000 UNITS TABLET 1000 UNITS PO (09:02)
[2024-06-19] MEDS: ASCORBIC ACID 500 MG TABLET PO (09:02)
[2024-06-19] MEDS: ANASTROZOLE (*CHEMO) 1 MG TABLET PO (09:02)
[2024-06-19] MEDS: FOLIC ACID 1 MG TABLET PO (09:02)
[2024-06-19] MEDS: OPTI-GEN TAB 1 TABLET PO ×2 (09:02→17:46)
[2024-06-19] MEDS: FLUTICASONE/UMECLIDIN/VILANTER 100-62.5-25 MCG ELLIPTA 1 PUFF INHALATION (09:09)
[2024-06-19] MEDS: IPRATROPIUM 0.5 MG/ALBUTEROL SULFATE 2.5 MG AMPUL.NEB 3 ML INHALATION ×2 (09:09→19:55)
[2024-06-19] MEDS: FERROUS SULFATE 325 MG TABLET DR 650 MG BY MOUTH (13:06)
--- NOTE | 2024-06-19 13:07 | WPDGICN ---
Assessment and Plan Assessment and plan (1) Anemia: Code(s): D64.9 - Anemia, unspecified Status: Acute (2) Lung cancer: Code(s): C34.90 - Malignant neoplasm of unspecified part of unspecified bronchus or lung Status: Chronic (3) H/O malignant neoplasm of breast: Code(s): Z85.3 - Personal history of malignant neoplasm of breast Status: Chronic (4) COPD (chronic obstructive pulmonary disease): Code(s): J44.9 - Chronic obstructive pulmonary disease, unspecified Status: Chronic (5) Dependence on continuous supplemental oxygen: Code(s): Z99.81 - Dependence on supplemental oxygen Status: Chronic (6) Hypertension: Code(s): I10 - Essential (primary) hypertension Status: Chronic (7) Anxiety and depression: Code(s): F41.9 - Anxiety disorder, unspecified; F32.9 - Major depressive disorder, single episode, unspecified Status: Chronic (8) GERD (gastroesophageal reflux disease): Qualifiers: Esophagitis presence: without esophagitis Qualified Code(s): K21.9 - Gastro-esophageal reflux disease without esophagitis Code(s): K21.9 - Gastro-esophageal reflux disease without esophagitis Status: Chronic (9) Positive occult stool blood test: Code(s): R19.5 - Other fecal abnormalities Status: Acute (10) Hemorrhoids: Code(s): K64.9 - Unspecified hemorrhoids Status: Acute (11) Colon polyp: Code(s): K63.5 - Polyp of colon Status: Acute Plan 1. Acute on Chronic Anemia/Positive Occult Stool: She has baseline chronic anemia with a hemoglobin of around 8. She presented [facility] ER for acute shortness of breath and weakness and was found to have acute drop in hemoglobin from baseline of 8 to 4.7 on admission. She received 2 units of packed red blood cells blood transfusions and hemoglobin has improved. Stool occult blood test was positive. She had a colonoscopy in [address] Miller within adenomatous colon polyp, and she has never had an EGD. She has no visible GI blood loss. Acute GI blood loss to be excluded in due to acute drop. She has baseline anemia that is multifactorial. - Plan to perform EGD and colonoscopy during this hospitalization to evaluate for source of GI bleeding, will possible plan for Monday. - Monitor H&H, transfuse as needed - Dr. Michaud is following, appreciate his recommendations. 2. Hemorrhoids - Prescribed hydrocortisone cream for symptomatic relief of burning hemorrhoids This report may have been done utilizing a voice recognition system. Attempts have been made to correct errors. However, there may be uncorrected grammatical, spelling, and recognition errors present. GI Consult Note Consult date/time: 06/19/24 13:07 Reason for consult: anemia HPI: This is a pleasant 78 year old female with a past medical surgical history of non-small cell lung cancer squamous cell diagnosed in 2019 status post SBRT treatment, early stage left-sided breast cancer in 2005 status post lumpectomy, metastatic breast cancer with a positive lymph node, history of adenomatous colon polyps, hypertension, history of pleural effusions, chronic kidney disease stage 3 on procrit, chronic anemia, peripheral vascular disease, psoriatic arthritis, GERD, COPD, anxiety, and breast cancer. She is oxygen dependent. She presented to the ER room 06/17/2024 with complaints of shortness of breath and weakness. GI consulted for evaluation of anemia. Her daughter in law is with her at bedside. She resides in assisted living facility. She has chronic anemia with a baseline hemoglobin of around 8 and takes Procrit injections. She sees Dr. Michaud for management of her anemia.and cancer. She presented to [facility] ER with shortness of breath and weakness. Her hemoglobin dropped from a baseline of 8 to 4.7 on admission. She denies seeing any bright red blood in her stool or black tarry stools. She reports having hemorrhoids that are both internal and external that cause burning but denies bleeding from them. She denies any chronic diarrhea or constipation or concerning bowel habit changes. She reports vomiting yesterday which consisted of undigested food. She denies feeling nauseous or sick to her stomach leading up to coming to the hospital. She denies GERD or trouble swallowing. She denies abdominal pain. She reports having a hiatal hernia for years. She is on baby aspirin. She denies any family history of colon cancer or stomach cancer. She requires 4 L of oxygen at rest and 6 L with exertion. She is currently on 5 L of oxygen. Denies NSAIDs. Since being here in mid to the hospital she has got 2 units blood cells oncology was consulted. She overall feels like or shortness of breath has improved although she is still not at her baseline oxygen requirement and currently on 5 L. she is eating well and having no complaints at this time. Incident she was found mastoid infusion possibly related to eustachian tube dysfunction, ENT following. ENDOSCOPY HISTORY: EGD: No prior EGD COLONOSCOPY: 06/16/2021 (Dr. Miller) for history of colon polyps Single 2 mm polyp observed in the cecum and diverticula in the descending and sigmoid colon and small internal hemorrhoids Recommendations repeat in 5 years LABS AND STOOL STUDIES: 06/17/2024: Hemoglobin 4.7, hematocrit 16, MCV 101, BUN 26, creatinine 1.28, ferritin 19, iron sat of 59% Stool occult positive IMAGIN05/21/2024 CT abdomen pelvis with contrast: No acute findings within the abdomen or pelvis to account for patient's abdominal pain. Colonic diverticulosis without surrounding inflammatory change. Rounded foci of fluid attenuation identified within the bilateral kidneys, the largest is exophytic from the interpolar region of the left kidney measuring 3.9 cm in greatest dimension. Small fat-containing umbilical hernia. An expansile focus of decreased attenuation within the left pedicle of L1 is present for which metastatic disease is suspected. FOR[facility]LY [facility], [facility] Past Medical History Medical History (Updated 06/19/24 @ 13:20 by Ale Frazier APRN) Dysfunction of left eustachian tube Abnormal findings on diagnostic imaging of other specified body structures Cerumen debris on tympanic membrane of both ears Acute and chronic respiratory failure with hypoxia Hypertension Pleural effusion Chronic renal insufficiency, stage III (moderate) Pneumonia PVD (peripheral vascular disease) Colon polyp Psoriatic arthritis Dependence on continuous supplemental oxygen Other specified counseling GERD (gastroesophageal reflux disease) Tobacco abuse Lung cancer Encounter for medication management Neuropathy Anxiety Arthritis Breast cancer COPD (chronic obstructive pulmonary disease) Irritable bowel disease Surgical History Surgical History S/P lumpectomy of breast History of tonsillectomy Hx of cholecystectomy History of liver biopsy H/O cataract extraction History of appendectomy History of knee replacement History of carpal tunnel release History of lung surgery Family History Family History Mother Diabetes mellitus Family history of lung cancer Family history of malignant neoplasm of uterus Family history of psoriasis Family history of malignant neoplasm Sibling Diabetes mellitus Father Family history of chronic obstructive pulmonary disease Family history of lung cancer Hypertension Family history of cardiovascular disease Grandparent Family history of malignant neoplasm of uterus Family history of coronary artery disease Social History Social History Smoking packs per day: 0.5 Smoking cigarettes per day: 10.0 Years smoked: 50 Smoking pack-years: 25.00 Smoking status: Former smoker Second hand tobacco smoke exposure: Yes Smoking end date: 04/22/24 Alcohol intake: never Substance use: never Substance use type: does not use Do You Feel Safe in your Home?: Yes Lack of Transportation: No Lack of Food: Never True Current Housing: I Have Housing Concerned About Future Housing: No Difficulty Paying Gas/Electric Bills: No Difficulty Paying for Meds: No Currently Unemployed: No Education: High School Diploma/GED Difficulty w/ Childcare or Family Care: No Living arrangements: with family Occupation/Education: retired Gender identity (if verbalized by the patient): Female Spiritual care concerns: Yes Agree to blood products: Yes Meds Home Medications and Allergies Home Medications Medication Instructions Recorded Confirmed Type aspirin 81 mg tablet,delayed 81 mg PO DAILY 01/03/19 06/17/24 History release (Ian Low Dose Aspirin) ftvvqmoy-wwfrlok-ndcp-lutein tablet 1 tablet PO DAILY 06/04/19 06/17/24 History cholecalciferol (vitamin D3) 25 25 mcg PO DAILY 05/12/21 06/17/24 History mcg (1,000 unit) capsule vit C 250 mg-vit E 90 mg-zinc 40 1 tablet PO BID 06/30/22 06/17/24 History mg-copper 1 dn-ylngle-nugmgr capsule (PreserVision AREDS-2) anastrozole 1 mg tablet 1 mg PO DAILY 07/14/22 06/17/24 History ipratropium 0.5 mg-albuterol 3 mg 3 ml inhalation BID 11/09/22 06/17/24 History (2.5 mg base)/3 mL nebulization soln ascorbate calcium (vitamin C) 500 500 mg PO DAILY 12/29/22 06/17/24 History mg tablet ferrous sulfate 325 mg (65 mg 650 mg PO DAILY 12/29/22 06/17/24 History iron) tablet (FeroSul) budesonide 160 mcg-glycopyr 9 See Rx Instructions .Route 04/11/23 06/17/24 Rx mcg-formot 4.8 mcg/actuation HFA .COMPLEX #10.7 grams inhaler (Breztri Aerosphere) ixekizumab 80 mg/mL subcutaneous See Rx Instructions .Route 06/22/23 06/17/24 Rx auto-injector (Taltz Autoinjector) .COMPLEX #3 mL palbociclib 100 mg capsule 100 mg PO DAILY 07/18/23 06/17/24 History (Ibrance) pregabalin 150 mg capsule 150 mg PO DAILY #90 caps 09/13/23 06/17/24 Rx folic acid 1 mg tablet 1 mg PO DAILY #90 tabs 01/26/24 06/17/24 Rx acetaminophen 500 mg tablet 1,000 mg PO BID pain 03/11/24 06/17/24 History cholestyramine-aspartame 4 gram 1 ea PO TIDWM PRN IBS 03/11/24 06/17/24 History oral powder for susp in a packet (Prevalite) quetiapine 25 mg tablet 25 mg PO QHS #90 tabs 04/15/24 06/17/24 Rx roflumilast 250 mcg tablet 250 mcg PO EVERY OTHER DAY 05/22/24 06/17/24 History (Daliresp) varenicline tartrate 0.03 mg/spray 1 spray intranasal DAILY 05/22/24 06/17/24 History metered nasal spray (Tyrvaya) vitamin B complex 1 tablet PO DAILY 05/22/24 06/17/24 History duloxetine 30 mg capsule,delayed 30 mg PO DAILY #30 caps 05/27/24 06/17/24 Rx release amoxicillin 875 mg-potassium 1 tablet PO Q12H #28 tabs 06/07/24 06/17/24 Rx clavulanate 125 mg tablet diclofenac sodium 1 % topical gel 2 g topical QID PRN pain #100 grams 06/07/24 06/17/24 Rx (Arthritis Pain (diclofenac)) doxycycline hyclate 100 mg tablet 100 mg PO Q12HR #28 tabs 06/07/24 06/17/24 Rx duloxetine 30 mg capsule,delayed 30 mg PO DAILY #0 caps 06/07/24 06/17/24 Rx release (Cymbalta) sennosides 8.6 mg-docusate sodium 2 tab PO BID #0 tabs 06/07/24 06/17/24 Rx 50 mg tablet (Senokot-S) vit C 250 mg-vit E 90 mg-zinc 40 1 tablet PO BID 06/17/24 06/17/24 History mg-copper 1 fb-kpzobk-ingmkg capsule (PreserVision AREDS-2) Allergies Allergy/AdvReac Type Severity Reaction Status Date / Time bupropion (From Wellbutrin) Allergy Intermediate Rash Verified 06/17/24 17:31 adhesive tape Allergy Unknown BLISTERS Verified 06/17/24 17:31 Bleach (Sodium Hypochlorite) Allergy Unknown Itching Verified 06/17/24 17:31 benzocaine (From Tigan (with AdvReac Unknown Unknown Verified 06/17/24 17:31 benzocaine)) trimethobenzamide AdvReac Unknown N/V Verified 06/17/24 17:31 nickel AdvReac Itching Verified 06/17/24 17:31 Vital Signs Vital Signs - 24 hr 06/18/24 14:28 06/18/24 16:00 06/18/24 20:00 Temperature 97.2 F L Pulse Rate 90 88 Respiratory Rate 18 Blood Pressure 122/54 L Pulse Oximetry 97 96 Oxygen Delivery Nasal Cannula Oxygen Flow Rate 5 06/18/24 20:00 06/18/24 20:15 06/18/24 22:05 Temperature 98.1 F Pulse Rate 90 92 Respiratory Rate 16 Blood Pressure 143/67 H Pulse Oximetry 96 97 Oxygen Delivery Oxygen Flow Rate 6 06/18/24 22:05 06/19/24 00:00 06/19/24 04:00 Temperature Pulse Rate 86 77 83 Respiratory Rate 14 Blood Pressure Pulse Oximetry Oxygen Delivery Oxygen Flow Rate 06/19/24 05:59 06/19/24 08:00 06/19/24 09:13 Temperature 98.1 F Pulse Rate 87 78 Respiratory Rate 18 20 Blood Pressure 130/60 Pulse Oximetry 95 94 94 Oxygen Delivery Nasal Cannula Nasal Cannula Oxygen Flow Rate 4 4 06/19/24 09:16 06/19/24 10:32 Temperature Pulse Rate 78 Respiratory Rate 20 Blood Pressure Pulse Oximetry Oxygen Delivery Nasal Cannula Oxygen Flow Rate 4 Exam Narrative: sitting up in chair eating clear liquid diet. Const: General: comfortable and no acute distress HENMT: Other: has nasal cannula in place on 5L oxygen Eyes: General: appearance normal, both eyes and all related structures GI: GI Palp: Yes Soft to palpation Skin: General skin exam: normal color Neuro: General: gait normal Speech: normal speech Extrem: General: normal to inspection Psych: Mental Status: mental status grossly normal Results Labs 06/19/24 06:21 06/19/24 06:21 Labs: Short CBC 06/19/24 Range/Units 06:21 WBC 6.0 (4.5-10.0) K/mm3 Hgb 8.0 L (12.0-15.0) g/dL Hct 26.1 L (37.0-47.0) % Plt Count 204 (150-375) k/mm3 BMP 06/19/24 06:21 Sodium 140 Potassium 4.0 Chloride 102 Carbon Dioxide 38 H BUN 17 Creatinine 1.22 H Glucose 100 Calcium 11.3 H Liver Function 06/19/24 Range/Units 06:21 Total Bilirubin 0.4 (0.2-1.3) mg/dL AST 20 (14-36) U/L ALT 13 (6-35) U/L Alkaline Phosphatase 89 (38-126) U/L Albumin 3.2 L (3.5-5.1) g/dL
--- NOTE | 2024-06-19 17:32 | P.CONONC_ITS ---
Assessment and Plan Assessment and plan (1) Anemia: Code(s): D64.9 - Anemia, unspecified Status: Acute Assessment and Plan: Normocytic anemia. Patient was getting treatment for anemia of chronic kidney disease my office with Procrit 44717 units on a biweekly basis. She was also taking iron and B12. She came into the hospital with worsening of shortness of breath and found to have hemoglobin of 4.7. She denies any bleeding including melena and hematochezia but her hemoccult stool testing came back positive. Labs showed normal iron studies. I will check soluble transferrin receptor, LDH, direct Claribel test with vitamin B12 level. Patient has been seen by the GI service and plan for endoscopy and colonoscopy noted. I will also resume Procrit. She will follow-up in the office as well. (2) Breast cancer: Qualifiers: Breast location: unspecified site of breast Estrogen receptor status: p ositive Patient sex: female Laterality: left Qualified Code(s): C50.912 - Malignant neoplasm of unspecified site of left female breast; Z17.0 - Estrogen receptor positive status [ER+] Code(s): C50.919 - Malignant neoplasm of unspecified site of unspecified female breast Status: Chronic Assessment and Plan: Patient was found to metastatic breast cancer status post ultrasound-guided biopsy of the left axillary lymph node. 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 Patient has been taking anastrozole and tolerating it well. Ibrance was discontinued due to anemia. Last tumor marker checked on June 11 came back normal at 8. Her breast cancer seems to be in remission. (3) Lung cancer: Code(s): C34.90 - Malignant neoplasm of unspecified part of unspecified bronchus or lung Status: Chronic Assessment and Plan: Patient was diagnosed with stage II B non-small cell lung cancer status post biopsy of the lingular mass done in June 2019. Patient had large CT scan done in February of 2024 that showed pulmonary nodules with worsening consistent with metastatic breast cancer. She will continue anastrozole. Unfortunately she was not able to tolerate Ibrance due to anemia and discontinued. I will order CT chest to assess the status of her lung and metastatic breast cancer. HPI Data of Consult Date/Time: 06/19/24 17:32 Requesting Physician: Shantel Goldberg MD Primary Care Provider: Bernadette Cedillo MD Consult Narrative Narrative: May Brenda is a 78 year old female with history of non-small cell lung cancer along with metastatic breast cancer and chronic anemia, chronic kidney stage 3 disease, GERD, COPD came into the hospital with increasing shortness of breath. Labs showed hemoglobin of 4.7. Other labs showed creatinine of 1.2 with GFR of 43 iron studies were normal. Hemoccult stool test came back positive. Patient was also on Procrit [id number] units on a biweekly basis along with iron and vitamin-C for anemia of chronic kidney disease. She was also taking anastrozole for her breast cancer. Previously she was on Ibrance there was discontinued due to anemia. She denies any bleeding including melena and hematochezia. Her last CT scan abdomen and pelvis done on May 22 showed no acute finding in the abdomen and pelvis to explain abdominal pain. She is feeling better after the blood transfusion. Review of Systems 2 Review of Systems: Review of system as per HPI otherwise negative [facility] [place] Past Medical History Medical History (Updated 06/19/24 @ 13:20 by Ale Frazier APRN) Dysfunction of left eustachian tube Abnormal findings on diagnostic imaging of other specified body structures Cerumen debris on tympanic membrane of both ears Acute and chronic respiratory failure with hypoxia Hypertension Pleural effusion Chronic renal insufficiency, stage III (moderate) Pneumonia PVD (peripheral vascular disease) Colon polyp Psoriatic arthritis Dependence on continuous supplemental oxygen Other specified counseling GERD (gastroesophageal reflux disease) Tobacco abuse Lung cancer Encounter for medication management Neuropathy Anxiety Arthritis Breast cancer COPD (chronic obstructive pulmonary disease) Irritable bowel disease Surgical History Surgical History S/P lumpectomy of breast History of tonsillectomy Hx of cholecystectomy History of liver biopsy H/O cataract extraction History of appendectomy History of knee replacement History of carpal tunnel release History of lung surgery Family History Family History Mother Diabetes mellitus Family history of lung cancer Family history of malignant neoplasm of uterus Family history of psoriasis Family history of malignant neoplasm Sibling Diabetes mellitus Father Family history of chronic obstructive pulmonary disease Family history of lung cancer Hypertension Family history of cardiovascular disease Grandparent Family history of malignant neoplasm of uterus Family history of coronary artery disease Social History Social History Smoking packs per day: 0.5 Smoking cigarettes per day: 10.0 Years smoked: 50 Smoking pack-years: 25.00 Smoking status: Former smoker Second hand tobacco smoke exposure: Yes Smoking end date: 04/22/24 Alcohol intake: never Substance use: never Substance use type: does not use Do You Feel Safe in your Home?: Yes Lack of Transportation: No Lack of Food: Never True Current Housing: I Have Housing Concerned About Future Housing: No Difficulty Paying Gas/Electric Bills: No Difficulty Paying for Meds: No Currently Unemployed: No Education: High School Diploma/GED Difficulty w/ Childcare or Family Care: No Living arrangements: with family Occupation/Education: retired Gender identity (if verbalized by the patient): Female Spiritual care concerns: Yes Agree to blood products: Yes Meds Home Medications and Allergies Home Medications Medication Instructions Recorded Confirmed Type aspirin 81 mg tablet,delayed 81 mg PO DAILY 01/03/19 06/17/24 History release (Ian Low Dose Aspirin) tsnclesu-lmxcyja-npif-lutein tablet 1 tablet PO DAILY 06/04/19 06/17/24 History cholecalciferol (vitamin D3) 25 25 mcg PO DAILY 05/12/21 06/17/24 History mcg (1,000 unit) capsule vit C 250 mg-vit E 90 mg-zinc 40 1 tablet PO BID 06/30/22 06/17/24 History mg-copper 1 hv-fgqadi-gygrae capsule (PreserVision AREDS-2) anastrozole 1 mg tablet 1 mg PO DAILY 07/14/22 06/17/24 History ipratropium 0.5 mg-albuterol 3 mg 3 ml inhalation BID 11/09/22 06/17/24 History (2.5 mg base)/3 mL nebulization soln ascorbate calcium (vitamin C) 500 500 mg PO DAILY 12/29/22 06/17/24 History mg tablet ferrous sulfate 325 mg (65 mg 650 mg PO DAILY 12/29/22 06/17/24 History iron) tablet (FeroSul) budesonide 160 mcg-glycopyr 9 See Rx Instructions .Route 04/11/23 06/17/24 Rx mcg-formot 4.8 mcg/actuation HFA .COMPLEX #10.7 grams inhaler (Breztri Aerosphere) ixekizumab 80 mg/mL subcutaneous See Rx Instructions .Route 06/22/23 06/17/24 Rx auto-injector (Taltz Autoinjector) .COMPLEX #3 mL palbociclib 100 mg capsule 100 mg PO DAILY 07/18/23 06/17/24 History (Ibrance) pregabalin 150 mg capsule 150 mg PO DAILY #90 caps 09/13/23 06/17/24 Rx folic acid 1 mg tablet 1 mg PO DAILY #90 tabs 01/26/24 06/17/24 Rx acetaminophen 500 mg tablet 1,000 mg PO BID pain 03/11/24 06/17/24 History cholestyramine-aspartame 4 gram 1 ea PO TIDWM PRN IBS 03/11/24 06/17/24 History oral powder for susp in a packet (Prevalite) quetiapine 25 mg tablet 25 mg PO QHS #90 tabs 04/15/24 06/17/24 Rx roflumilast 250 mcg tablet 250 mcg PO EVERY OTHER DAY 05/22/24 06/17/24 History (Daliresp) varenicline tartrate 0.03 mg/spray 1 spray intranasal DAILY 05/22/24 06/17/24 History metered nasal spray (Tyrvaya) vitamin B complex 1 tablet PO DAILY 05/22/24 06/17/24 History duloxetine 30 mg capsule,delayed 30 mg PO DAILY #30 caps 05/27/24 06/17/24 Rx release amoxicillin 875 mg-potassium 1 tablet PO Q12H #28 tabs 06/07/24 06/17/24 Rx clavulanate 125 mg tablet diclofenac sodium 1 % topical gel 2 g topical QID PRN pain #100 grams 06/07/24 06/17/24 Rx (Arthritis Pain (diclofenac)) doxycycline hyclate 100 mg tablet 100 mg PO Q12HR #28 tabs 06/07/24 06/17/24 Rx duloxetine 30 mg capsule,delayed 30 mg PO DAILY #0 caps 06/07/24 06/17/24 Rx release (Cymbalta) sennosides 8.6 mg-docusate sodium 2 tab PO BID #0 tabs 06/07/24 06/17/24 Rx 50 mg tablet (Senokot-S) vit C 250 mg-vit E 90 mg-zinc 40 1 tablet PO BID 06/17/24 06/17/24 History mg-copper 1 rd-lvwlcg-zivwpd capsule (PreserVision AREDS-2) Allergies Allergy/AdvReac Type Severity Reaction Status Date / Time bupropion (From Wellbutrin) Allergy Intermediate Rash Verified 06/17/24 17:31 adhesive tape Allergy Unknown BLISTERS Verified 06/17/24 17:31 Bleach (Sodium Hypochlorite) Allergy Unknown Itching Verified 06/17/24 17:31 benzocaine (From Tigan (with AdvReac Unknown Unknown Verified 06/17/24 17:31 benzocaine)) trimethobenzamide AdvReac Unknown N/V Verified 06/17/24 17:31 nickel AdvReac Itching Verified 06/17/24 17:31 Vital Signs Vital Signs - 24 hr 06/18/24 20:00 06/18/24 20:00 06/18/24 20:15 Temperature 36.7 C Pulse Rate 90 92 Respiratory Rate 16 Blood Pressure 143/67 H Pulse Oximetry 96 96 Oxygen Delivery Nasal Cannula Oxygen Flow Rate 5 06/18/24 22:05 06/18/24 22:05 06/19/24 00:00 Temperature Pulse Rate 86 77 Respiratory Rate 14 Blood Pressure Pulse Oximetry 97 Oxygen Delivery Oxygen Flow Rate 6 06/19/24 04:00 06/19/24 05:59 06/19/24 08:00 Temperature 36.7 C Pulse Rate 83 87 78 Respiratory Rate 18 20 Blood Pressure 130/60 Pulse Oximetry 95 94 Oxygen Delivery Nasal Cannula Oxygen Flow Rate 4 06/19/24 08:00 06/19/24 09:13 06/19/24 09:16 Temperature Pulse Rate 90 78 Respiratory Rate 20 Blood Pressure Pulse Oximetry 94 Oxygen Delivery Nasal Cannula Oxygen Flow Rate 4 06/19/24 10:32 06/19/24 12:00 06/19/24 14:00 Temperature Pulse Rate 90 90 Respiratory Rate 18 Blood Pressure 124/57 L Pulse Oximetry 100 Oxygen Delivery Nasal Cannula Oxygen Flow Rate 4 06/19/24 16:00 Temperature Pulse Rate 85 Respiratory Rate Blood Pressure Pulse Oximetry Oxygen Delivery Oxygen Flow Rate Exam 2 Narrative: Lungs are clear to auscultation bilaterally Cardiovascular regular rate rhythm no murmurs Abdomen soft nontender nondistended Extremities no edema Results Labs 06/19/24 06:21 06/19/24 06:21 Labs: Short CBC 06/19/24 Range/Units 06:21 WBC 6.0 (4.5-10.0) K/mm3 Hgb 8.0 L (12.0-15.0) g/dL Hct 26.1 L (37.0-47.0) % Plt Count 204 (150-375) k/mm3 BMP 06/19/24 06:21 Sodium 140 Potassium 4.0 Chloride 102 Carbon Dioxide 38 H BUN 17 Creatinine 1.22 H Glucose 100 Calcium 11.3 H Liver Function 06/19/24 Range/Units 06:21 Total Bilirubin 0.4 (0.2-1.3) mg/dL AST 20 (14-36) U/L ALT 13 (6-35) U/L Alkaline Phosphatase 89 (38-126) U/L Albumin 3.2 L (3.5-5.1) g/dL
--- NOTE | 2024-06-19 17:41 | P.PNIM_ITS ---
Progress Note: A&P Assessment and Plan (1) Anemia: Code(s): D64.9 - Anemia, unspecified Status: Acute Assessment and Plan: * Acute on chronic * Consult Dr. Michaud * Check iron panel * Transfuse 2 units packed red blood cells * Monitor and trend labs and vital signs * Fall precautions * telemetry * Will defer any Procrit ordering to oncology consult. * Consult GI * Prior history of colonoscopy few years ago * Denies upper endoscopy was done before * Upper and lower endoscopy Monday (2) Lung cancer: Code(s): C34.90 - Malignant neoplasm of unspecified part of unspecified bronchus or lung Status: Chronic Assessment and Plan: * Follows with Dr. Michaud (3) H/O malignant neoplasm of breast: Code(s): Z85.3 - Personal history of malignant neoplasm of breast Status: Chronic Assessment and Plan: * Continue anastrozole (4) COPD (chronic obstructive pulmonary disease): Code(s): J44.9 - Chronic obstructive pulmonary disease, unspecified Status: Chronic Assessment and Plan: * Chronic and not acutely in exacerbation. * Suspect patient's dyspnea was from her acute anemia * Continue supplemental oxygen the patient wears at home * Continue home medications once they have been confirmed * Monitor vital signs (5) Dependence on continuous supplemental oxygen: Code(s): Z99.81 - Dependence on supplemental oxygen Status: Chronic Assessment and Plan: * See 4. (6) Hypertension: Code(s): I10 - Essential (primary) hypertension Status: Chronic Assessment and Plan: * Monitor and trend labs and vital signs * Continue home medication (7) Anxiety and depression: Code(s): F41.9 - Anxiety disorder, unspecified; F32.9 - Major depressive disorder, single episode, unspecified Status: Chronic Assessment and Plan: * Continue home medications (8) GERD (gastroesophageal reflux disease): Qualifiers: Esophagitis presence: without esophagitis Qualified Code(s): K21.9 - Gastro-esophageal reflux disease without esophagitis Code(s): K21.9 - Gastro-esophageal reflux disease without esophagitis Status: Chronic Assessment and Plan: * Continue home medications (9) Mastoiditis of left side: Code(s): H70.92 - Unspecified mastoiditis, left ear Status: Acute Assessment and Plan: Status post antibiotics Consulted ENT Subjective Date/time seen: 06/19/24 17:41 Interval history: Possible EGD and colonoscopy this monday.Pending evaluation from Review of Systems Review of Systems: All systems reviewed & are unremarkable except as noted in HPI and below Exam Const: General: comfortable and no acute distress Other: Pleasant, elderly female patient lying supine in stretcher this time in no acute distress. She is talkative. HENMT: Face/Nose/Sinus: Normal nares present Mouth: Yes moist mucous membranes Other: Head appears atraumatic normocephalic. Eyes: General: appearance normal, both eyes and all related structures Sclera: sclerae normal Pupils: Equal, round and reactive pupils present EOM: EOMs intact bilaterally Neck: Neck: supple and no JVD Chest: Other: Nontender to palpation, no crepitus or edema Resp: Effort & Inspection: normal respiratory effort Auscultation: clear to auscultation bilaterally Cardio: Rate: regular rate Rhythm: regular rhythm Heart sounds: no gallops, no murmurs and no rubs GI: Inspection: non-distended Auscultation: normal bowel sounds Skin: General skin exam: No normal color (Pale), No lesion and No rashes Lesions: no lesions noted Rashes: no rashes noted Wounds: no wounds Neuro: Cranial nerves: Yes Equal, round and reactive pupils present Speech: normal speech Motor exam (neuro): Abnormal motor strength present (Generalized, nonfocal weakness) Sensory Exam: normal sensation Other: Did not test gait Extrem: General: normal to inspection, no edema and no pedal edema Psych: Mental Status: mental status grossly normal Affect: normal affect Objective Data Vital Signs Vital Signs: Vital Signs - 24 hr 06/18/24 20:00 06/18/24 20:00 06/18/24 20:15 Temperature 98.1 F Pulse Rate 90 92 Respiratory Rate 16 Blood Pressure 143/67 H Pulse Oximetry 96 96 Oxygen Delivery Nasal Cannula Oxygen Flow Rate 5 06/18/24 22:05 06/18/24 22:05 06/19/24 00:00 Temperature Pulse Rate 86 77 Respiratory Rate 14 Blood Pressure Pulse Oximetry 97 Oxygen Delivery Oxygen Flow Rate 6 06/19/24 04:00 06/19/24 05:59 06/19/24 08:00 Temperature 98.1 F Pulse Rate 83 87 78 Respiratory Rate 18 20 Blood Pressure 130/60 Pulse Oximetry 95 94 Oxygen Delivery Nasal Cannula Oxygen Flow Rate 4 06/19/24 08:00 06/19/24 09:13 06/19/24 09:16 Temperature Pulse Rate 90 78 Respiratory Rate 20 Blood Pressure Pulse Oximetry 94 Oxygen Delivery Nasal Cannula Oxygen Flow Rate 4 06/19/24 10:32 06/19/24 12:00 06/19/24 14:00 Temperature Pulse Rate 90 90 Respiratory Rate 18 Blood Pressure 124/57 L Pulse Oximetry 100 Oxygen Delivery Nasal Cannula Oxygen Flow Rate 4 06/19/24 16:00 Temperature Pulse Rate 85 Respiratory Rate Blood Pressure Pulse Oximetry Oxygen Delivery Oxygen Flow Rate Intake/Output Intake/Output: Intake & Output 06/16/24 06/17/24 06/18/24 06/19/24 23:59 23:59 23:59 23:59 Intake Total 410 1800 480 Balance 410 1800 480 Meds/Results Medications: Active Medications Generic Name Dose Route Start Last Admin Trade Name Freq PRN Reason Stop Dose Admin Acetaminophen 650 mg 06/17/24 21:46 Acetaminophen 325 Mg Tablet PO Q4H PRN Mild Pain (1-3) or Fever Acetaminophen 1,000 mg 06/18/24 21:00 06/19/24 09:02 Acetaminophen 500 Mg Tablet PO 1,000 mg Q12HR GIA Administration Hydrocodone Bitart/Acetaminophen 1 tab 06/17/24 21:46 Hydrocodone/Acetaminophen (*Crx) 5-325 Mg Tablet PO Q4H PRN Pain Rated 4-6 Albuterol/Ipratropium 3 ml 06/18/24 20:00 06/19/24 09:09 Ipratropium 0.5 Mg/Albuterol Sulfate 2.5 Mg Ampul.Neb 3 Ml INHALATION 3 ml Q12HRT GIA Administration Anastrozole 1 mg 06/19/24 09:00 06/19/24 09:02 Anastrozole (*Chemo) 1 Mg Tablet PO 1 mg DAILY GIA Administration Ascorbic Acid 500 mg 06/19/24 09:00 06/19/24 09:02 Ascorbic Acid 500 Mg Tablet PO 500 mg DAILY GIA Administration Aspirin 81 mg 06/19/24 09:00 06/19/24 09:02 Aspirin 81 Mg Enteric Tablet PO 81 mg DAILY GIA Administration Cholestyramine Resin 4 gm 06/18/24 15:36 Cholestyramine Light 4 Gm Powd.Pack PO TIDWM PRN IBS Diclofenac Sodium 1 applic 06/18/24 15:36 Diclofenac Sodium 1% 100 Gm Gel (*Bkc) TOPICAL QID PRN pain Duloxetine HCl 30 mg 06/19/24 09:00 06/19/24 09:02 Duloxetine Hcl 30 Mg Capsule.Dr PO 30 mg DAILY GIA Administration Ferrous Sulfate 650 mg 06/19/24 12:00 06/19/24 13:06 Ferrous Sulfate [address] BY MOUTH 650 mg DAILY@1200 [facility] Administration Fluticasone/Umeclidinium/Vilanterol 1 puff 06/19/24 08:00 06/19/24 09:09 Fluticasone/Umeclidin/Vilanter 100-62.5-25 Mcg Ellipta INHALATION 1 puff DAILYRT GIA Administration Folic Acid 1 mg 06/19/24 09:00 06/19/24 09:02 Folic Acid 1 Mg Tablet PO 1 mg DAILY GIA Administration Hydrocortisone 1 applic 06/19/24 21:00 Hydrocortisone 2.5% Cream 30 Gm Tube RECTAL 06/29/24 20:59 Q12HR [facility] Miscellaneous Information 0 each 06/18/24 00:01 Varenicline Nonform Can Pt Bring From Home? XX 07/18/24 00:00 CLARIFY [facility] Multivitamins/Minerals 1 tablet 06/18/24 17:00 06/19/24 09:02 Opti-Gen Tab PO 1 tablet BID [facility] Administration Non-Formulary Medication 1 spray 06/19/24 09:00 Varenicline Tartrate [Tyrvaya] NASAL 07/19/24 08:59 DAILY [facility] Ondansetron HCl 4 mg 06/17/24 21:46 Ondansetron Inj 4 Mg/2 Ml Vial IV PUSH Q4H PRN Nausea Pregabalin 150 mg 06/19/24 09:00 06/19/24 09:02 Pregabalin (*Crx) 75 Mg Capsule PO 150 mg DAILY GIA Administration Quetiapine Fumarate 25 mg 06/18/24 21:00 06/18/24 20:20 Quetiapine Fumarate 25 Mg Tablet PO 25 mg QHS GIA Administration Roflumilast 250 mcg 06/18/24 16:00 06/18/24 16:47 Roflumilast 250 Mcg Tablet PO 250 mcg Q48H [facility] Administration Vitamin B Complex 1 cap 06/19/24 09:00 06/19/24 09:02 Vitamin B Complex Capsule PO 1 cap DAILY GIA Administration Vitamin D 1,000 units 06/19/24 09:00 06/19/24 09:02 Cholecalciferol 1,000 Units Tablet PO 1,000 units DAILY GIA Administration Radiology Results: ITS Impressions Chest X-Ray 06/17/24 17:47 IMPRESSION: Pulmonary vascular congestion, without focal infiltrate or effusion. Head CT 06/17/24 20:58 Impression: No acute intracranial hemorrhage or suspicious mass effect. Redemonstration of a left sided mastoid effusion. Labs Labs: Laboratory Results - last 24 hr 06/19/24 06:21 WBC 6.0 RBC 2.80 L Hgb 8.0 L Hct 26.1 L MCV 93.2 MCH 28.6 MCHC 30.7 L RDW 16.7 H Plt Count 204 MPV 9.9 Sodium 140 Potassium 4.0 Chloride 102 Carbon Dioxide 38 H Anion Gap 0 L BUN 17 Creatinine 1.22 H Estim Creat Clear Calc 34 Estimated GFR 43 L Glucose 100 Calcium 11.3 H Total Bilirubin 0.4 AST 20 ALT 13 Alkaline Phosphatase 89 Total Protein 6.0 L Albumin 3.2 L Quality VTE Prophylaxis VTE prophylaxis: mechanical ordered Hospitalist [facility] Advance Care Plan I have confirmed that the patient's Advanced Care Plan is present, code status is documented, or surrogate decision maker is listed in patient medical record.: Yes Medication Reconciliation I have utilized all available resources to obtain, update and review the patients current medications (includes all prescriptions, OTC, herbals, cannabis, and nutritional supplements).: Yes
[2024-06-19 19:47] LABS: Lactate Dehydrogenase 152 U/L (120-246)
[2024-06-19] MEDS: HYDROCORTISONE 2.5% CREAM 30 GM TUBE 1 APPLIC RECTAL (20:13)
[2024-06-19] MEDS: QUEtiapine FUMARATE 25 MG TABLET PO (20:13)
[2024-06-19 20:40] LABS: Vitamin B12 > 1000.0 pg/mL (239-931)
[2024-06-20] VITALS (13 sets, daily range): BP systolic 118–135; BP diastolic 46–76; PULSE 74–121; RESP 16–24; TEMP 36–36.9; O2SAT 91–98
[2024-06-20 06:27] LABS: Hemoglobin 8.2 g/dL (12.0-15.0); Mean Corpuscular HGB Conc 29.3 g/dl (32-36); Mean Corpuscular Hemoglobin 28.3 pg (26-34); Mean Corpuscular Volume 96.6 fl (80-100); Mean Platelet Volume 9.8 fl (7.4-10.4); Platelet Count Result 226 k/mm3 (150-375); Red Cell Distribution Width 15.9 % (11.5-14.5); White Blood Count 6.2 K/mm3 (4.5-10.0)
[2024-06-20 06:37] LABS: Alanine Aminotransferase 15 U/L (6-35); Albumin Level 3.4 g/dL (3.5-5.1); Alkaline Phosphatase 97 U/L (38-126); Anion Gap 3 mmol/L (4-12); Aspartate Amino Transferase 19 U/L (14-36); Bilirubin,Total 0.3 mg/dL (0.2-1.3); Blood Urea Nitrogen 21 mg/dL (7-17); Calcium 11.6 mg/dL (8.4-10.2); Carbon Dioxide 38 mmol/L (22-30); Chloride 101 mmol/L (98-107); Estimated CRCL calculation 28 ml/min; Estimated Glomerular Filt Rate 34; Glucose 94 mg/dL (65-110); Potassium 4.1 mmol/L (3.4-5.0); Sodium 142 mmol/L (137-145)
[2024-06-20] MEDS: FLUTICASONE/UMECLIDIN/VILANTER 100-62.5-25 MCG ELLIPTA 1 PUFF INHALATION (07:47)
[2024-06-20] MEDS: IPRATROPIUM 0.5 MG/ALBUTEROL SULFATE 2.5 MG AMPUL.NEB 3 ML INHALATION ×2 (07:47→20:10)
[2024-06-20] MEDS: FOLIC ACID 1 MG TABLET PO (08:30)
[2024-06-20] MEDS: VITAMIN B COMPLEX CAPSULE 1 CAP PO (08:30)
[2024-06-20] MEDS: HYDROCORTISONE 2.5% CREAM 30 GM TUBE 1 APPLIC RECTAL ×2 (08:31→22:47)
[2024-06-20] MEDS: ANASTROZOLE (*CHEMO) 1 MG TABLET PO (08:31)
[2024-06-20] MEDS: ASCORBIC ACID 500 MG TABLET PO (08:31)
[2024-06-20] MEDS: CHOLECALCIFEROL 1,000 UNITS TABLET 1000 UNITS PO (08:31)
[2024-06-20] MEDS: OPTI-GEN TAB 1 TABLET PO ×2 (08:31→17:59)
[2024-06-20] MEDS: DULoxetine HCL 30 MG CAPSULE.DR PO (08:31)
[2024-06-20] MEDS: PREGABALIN (*CRX) 75 MG CAPSULE 150 MG PO (08:31)
[2024-06-20] MEDS: ACETAMINOPHEN 500 MG TABLET 1000 MG PO ×2 (08:31→22:44)
[2024-06-20] MEDS: ASPIRIN 81 MG ENTERIC TABLET PO (08:31)
[2024-06-20] MEDS: FERROUS SULFATE 325 MG TABLET DR 650 MG BY MOUTH (12:43)
--- NOTE | 2024-06-20 13:40 | PCOTNOTE ---
Patient out of the room at this time. Patient having a chest CT done.
--- NOTE | 2024-06-20 17:11 | WPDGIPROGNO ---
Progress Note: A&P Assessment and Plan (1) Acute on chronic anemia: Code(s): D64.9 - Anemia, unspecified Status: Acute Assessment and Plan: probably multifactorial improved after blood transfusion hem-onc on board given occult blood in stool and anemia lower than baseline then will do egd and colonoscopy tomorrow (2) Positive occult stool blood test: Code(s): R19.5 - Other fecal abnormalities Status: Acute (3) Lung cancer: Qualifiers: Laterality: left Lung location: lower lobe of lung Qualified Code(s): C34.32 - Malignant neoplasm of lower lobe, left bronchus or lung Code(s): C34.90 - Malignant neoplasm of unspecified part of unspecified bronchus or lung Status: Chronic (4) Breast cancer: Qualifiers: Breast location: unspecified site of breast Estrogen receptor status: positive Patient sex: female Laterality: left Qualified Code(s): C50.912 - Malignant neoplasm of unspecified site of left female breast; Z17.0 - Estrogen receptor positive status [ER+] Code(s): C50.919 - Malignant neoplasm of unspecified site of unspecified female breast Status: Chronic (5) Chronic renal insufficiency, stage III (moderate): Code(s): N18.30 - Chronic kidney disease, stage 3 unspecified Status: Acute (6) COPD (chronic obstructive pulmonary disease): Code(s): J44.9 - Chronic obstructive pulmonary disease, unspecified Status: Chronic Subjective Date/time seen: 06/20/24 17:11 Interval history: comfortable, better after blood transfusion Review of Systems Review of Systems: All systems reviewed & are unremarkable except as noted in HPI and below Exam Const: General: comfortable and no acute distress HENMT: Face/Nose/Sinus: Normal nares present Mouth: Yes moist mucous membranes Other: Head appears atraumatic normocephalic. Eyes: General: appearance normal, both eyes and all related structures Neck: Neck: supple Resp: Effort & Inspection: normal respiratory effort Auscultation: clear to auscultation bilaterally Cardio: Rate: regular rate Rhythm: regular rhythm GI: Inspection: non-distended GI Palp: Yes Soft to palpation and No Tenderness to palpation present (GI) Auscultation: normal bowel sounds Skin: General skin exam: No normal color (Pale) Extrem: General: normal to inspection and no edema Psych: Mental Status: mental status grossly normal Affect: normal affect Objective Data Vital Signs Vital Signs: Vital Signs - 24 hr 06/19/24 19:55 06/19/24 20:00 06/19/24 20:00 Temperature Pulse Rate 83 88 Respiratory Rate 22 H Blood Pressure Pulse Oximetry 99 Oxygen Delivery Nasal Cannula Oxygen Flow Rate 3 06/19/24 20:01 06/19/24 20:05 06/19/24 21:05 Temperature 99.0 F Pulse Rate 83 85 88 Respiratory Rate 22 H 22 H 18 Blood Pressure 142/61 H Pulse Oximetry 99 92 Oxygen Delivery Nasal Cannula Oxygen Flow Rate 3 06/20/24 00:00 06/20/24 04:00 06/20/24 05:34 Temperature 98.4 F Pulse Rate 74 84 92 Respiratory Rate 16 Blood Pressure 124/76 Pulse Oximetry 91 Oxygen Delivery Oxygen Flow Rate 06/20/24 07:47 06/20/24 07:56 06/20/24 08:00 Temperature Pulse Rate 101 H 108 H Respiratory Rate 24 H 24 H Blood Pressure Pulse Oximetry 91 Oxygen Delivery Nasal Cannula Oxygen Flow Rate 5 06/20/24 08:00 06/20/24 12:00 06/20/24 14:00 Temperature 96.8 F L Pulse Rate 121 H 89 87 Respiratory Rate 18 Blood Pressure 118/61 Pulse Oximetry 98 Oxygen Delivery Oxygen Flow Rate Intake/Output Intake/Output: Intake & Output 06/17/24 06/18/24 06/19/24 06/20/24 23:59 23:59 23:59 23:59 Intake Total 410 1800 720 480 Balance 410 1800 720 480 Meds/Results Medications: Active Medications Generic Name Dose Route Start Last Admin Trade Name Lucianoq PRN Reason Stop Dose Admin Acetaminophen 650 mg 06/17/24 21:46 Acetaminophen 325 Mg Tablet PO Q4H PRN Mild Pain (1-3) or Fever Acetaminophen 1,000 mg 06/18/24 21:00 06/20/24 08:31 Acetaminophen 500 Mg Tablet PO 1,000 mg Q12HR GIA Administration Hydrocodone Bitart/Acetaminophen 1 tab 06/17/24 21:46 Hydrocodone/Acetaminophen (*Crx) 5-325 Mg Tablet PO Q4H PRN Pain Rated 4-6 Albuterol/Ipratropium 3 ml 06/18/24 20:00 06/20/24 07:47 Ipratropium 0.5 Mg/Albuterol Sulfate 2.5 Mg Ampul.Neb 3 Ml INHALATION 3 ml Q12HRT GIA Administration Anastrozole 1 mg 06/19/24 09:00 06/20/24 08:31 Anastrozole (*Chemo) 1 Mg Tablet PO 1 mg DAILY GIA Administration Ascorbic Acid 500 mg 06/19/24 09:00 06/20/24 08:31 Ascorbic Acid 500 Mg Tablet PO 500 mg DAILY GIA Administration Aspirin 81 mg 06/19/24 09:00 06/20/24 08:31 Aspirin 81 Mg Enteric Tablet PO 81 mg DAILY GIA Administration Bisacodyl 20 mg 06/20/24 17:30 Bisacodyl 5 Mg Tablet Ec PO 06/20/24 17:31 ONCE ONE Cholestyramine Resin 4 gm 06/18/24 15:36 Cholestyramine Light 4 Gm Powd.Pack PO TIDWM PRN IBS Diclofenac Sodium 1 applic 06/18/24 15:36 Diclofenac Sodium 1% 100 Gm Gel (*Bkc) TOPICAL QID PRN pain Duloxetine HCl 30 mg 06/19/24 09:00 06/20/24 08:31 Duloxetine Hcl 30 Mg Capsule.Dr PO 30 mg DAILY GIA Administration Ferrous Sulfate 650 mg 06/19/24 12:00 06/20/24 12:43 Ferrous Sulfate [address] BY MOUTH 650 mg DAILY@1200 GIA Administration Fluticasone/Umeclidinium/Vilanterol 1 puff 06/19/24 08:00 06/20/24 07:47 Fluticasone/Umeclidin/Vilanter 100-62.5-25 Mcg Ellipta INHALATION 1 puff DAILYRT GIA Administration Folic Acid 1 mg 06/19/24 09:00 06/20/24 08:30 Folic Acid 1 Mg Tablet PO 1 mg DAILY GIA Administration Hydrocortisone 1 applic 06/19/24 21:00 06/20/24 08:31 Hydrocortisone 2.5% Cream 30 Gm Tube RECTAL 06/29/24 20:59 1 applic Q12HR GIA Administration Magnesium Citrate 300 ml 06/21/24 01:00 Magnesium Citrate 300 Ml Btl PO 06/21/24 01:01 ONCE ONE Multivitamins/Minerals 1 tablet 06/18/24 17:00 06/20/24 08:31 Opti-Gen Tab PO 1 tablet BID GIA Administration Ondansetron HCl 4 mg 06/17/24 21:46 Ondansetron Inj 4 Mg/2 Ml Vial IV PUSH Q4H PRN Nausea Polyethylene Glycol 238 gm 06/20/24 17:30 Polyethylene Glycol 3350 238 Gm Bottle PO 06/20/24 17:31 ONCE ONE Pregabalin 150 mg 06/19/24 09:00 06/20/24 08:31 Pregabalin (*Crx) 75 Mg Capsule PO 150 mg DAILY GIA Administration Quetiapine Fumarate 25 mg 06/18/24 21:00 06/19/24 20:13 Quetiapine Fumarate 25 Mg Tablet PO 25 mg QHS GIA Administration Roflumilast 250 mcg 06/18/24 16:00 06/18/24 16:47 Roflumilast 250 Mcg Tablet PO 250 mcg Q48H GIA Administration Vitamin B Complex 1 cap 06/19/24 09:00 06/20/24 08:30 Vitamin B Complex Capsule PO 1 cap DAILY GIA Administration Vitamin D 1,000 units 06/19/24 09:00 06/20/24 08:31 Cholecalciferol 1,000 Units Tablet PO 1,000 units DAILY GIA Administration Radiology Results: ITS Impressions Chest X-Ray 06/17/24 17:47 IMPRESSION: Pulmonary vascular congestion, without focal infiltrate or effusion. Head CT 06/17/24 20:58 Impression: No acute intracranial hemorrhage or suspicious mass effect. Redemonstration of a left sided mastoid effusion. Chest CT 06/20/24 14:19 Impression: Multiple pulmonary nodules, as detailed above. There is a new 5 mm right lower lobe nodule and an increased 1 cm left upper lobe nodule. Remaining nodules are unchanged. Mild interval progression of disease is a consideration. Extensive mild amorphous groundglass opacity could reflect pulmonary edema, posttreatment change, or nonspecific bronchitis. Correlate clinically. Stable postoperative change right lung apex. Stable peripherally sclerotic lesion in the L1 vertebral body. Labs Labs: Laboratory Results - last 24 hr 06/19/24 06/20/24 18:21 05:55 WBC 6.2 RBC 2.90 L Hgb 8.2 L Hct 28.0 L MCV 96.6 MCH 28.3 MCHC 29.3 L RDW 15.9 H Plt Count 226 MPV 9.8 Sodium 142 Potassium 4.1 Chloride 101 Carbon Dioxide 38 H Anion Gap 3 L BUN 21 H Creatinine 1.48 H Estim Creat Clear Calc 28 Estimated GFR 34 L Glucose 94 Calcium 11.6 H Total Bilirubin 0.3 AST 19 ALT 15 Alkaline Phosphatase 97 Lactate Dehydrogenase 152 Total Protein 7.0 Albumin 3.4 L Vitamin B12 > 1000.0 H AIMEE, IgG Interpret Neg AIMEE, Poly Interpret Negative AIMEE, Complement Interp Not Performed
[2024-06-20] MEDS: ROFLUMILAST 250 MCG TABLET PO (17:58)
[2024-06-20] MEDS: BISACODYL 5 MG TABLET EC 20 MG PO (17:58)
[2024-06-20] MEDS: polyethylene glycoL 3350 238 GM BOTTLE PO (17:59)
[2024-06-20] MEDS: QUEtiapine FUMARATE 25 MG TABLET PO (22:44)
[2024-06-21] VITALS (18 sets, daily range): BP systolic 123–144; BP diastolic 54–68; PULSE 78–108; RESP 18–25; TEMP 36.3–37; O2SAT 91–98
[2024-06-21] MEDS: MAGNESIUM CITRATE 300 ML BTL PO ×2 (01:46→10:09)
[2024-06-21] MEDS: FLUTICASONE/UMECLIDIN/VILANTER 100-62.5-25 MCG ELLIPTA 1 PUFF INHALATION (07:41)
[2024-06-21] MEDS: IPRATROPIUM 0.5 MG/ALBUTEROL SULFATE 2.5 MG AMPUL.NEB 3 ML INHALATION ×2 (07:41→19:59)
--- NOTE | 2024-06-21 09:31 | PCOTNOTE ---
Patient stated I have not went to bed since I got up. RN stated she is getting a bowel prep.
[2024-06-21] MEDS: HYDROCORTISONE 2.5% CREAM 30 GM TUBE 1 APPLIC RECTAL ×2 (12:57→20:33)
--- NOTE | 2024-06-21 13:46 | PCPTNOTE ---
Attempted to see patient for PT, however patient was leaving room for procedure at this time.
[2024-06-21] MEDS: LACTATED RINGERS 1,000 ML 150 ML IV CONT (14:00)
--- NOTE | 2024-06-21 14:13 | PCOTNOTE ---
Patient out of the room at this time. Patient went down for a procedure
--- NOTE | 2024-06-21 14:15 | P.PNAN_ITS ---
Anes - Initial Pre Proc Eval Procedure: Operation Date: 06/21/24 16:00 Proposed Procedures p Esophagogastroduodenoscopy & Colonoscopy - Sincere Maurice MD Date/Time: 06/21/24 14:15 Surgeon: Shantel Goldberg MD Pre Op Diagnosis: Anemia Patient Data Age: 78 Gender: F Height: 1.63 m Weight: 71.8 kg Last Vital Signs Temp 98.6 F 06/21/24 14:11 Pulse 105 H 06/21/24 14:11 Resp 20 06/21/24 14:11 BP 143/64 H 06/21/24 14:11 Pulse Ox 94 06/21/24 14:11 O2 Del Method Nasal Cannula 06/21/24 14:11 O2 Flow Rate 6 06/21/24 14:11 Allergies Allergy/AdvReac Type Severity Reaction Status Date / Time bupropion (From Wellbutrin) Allergy Intermediate Rash Verified 06/21/24 14:09 adhesive tape Allergy Unknown BLISTERS Verified 06/21/24 14:09 Bleach (Sodium Hypochlorite) Allergy Unknown Itching Verified 06/21/24 14:09 benzocaine (From Tigan (with AdvReac Unknown Unknown Verified 06/21/24 14:09 benzocaine)) trimethobenzamide AdvReac Unknown N/V Verified 06/21/24 14:09 nickel AdvReac Itching Verified 06/21/24 14:09 Home Medications Medication Instructions Recorded Confirmed Type aspirin 81 mg tablet,delayed 81 mg PO DAILY 01/03/19 06/17/24 History release (Ian Low Dose Aspirin) fkmytdjf-eocyrkr-mgef-lutein tablet 1 tablet PO DAILY 06/04/19 06/17/24 History cholecalciferol (vitamin D3) 25 25 mcg PO DAILY 05/12/21 06/17/24 History mcg (1,000 unit) capsule vit C 250 mg-vit E 90 mg-zinc 40 1 tablet PO BID 06/30/22 06/17/24 History mg-copper 1 ay-zkgtcl-yzissz capsule (PreserVision AREDS-2) anastrozole 1 mg tablet 1 mg PO DAILY 07/14/22 06/17/24 History ipratropium 0.5 mg-albuterol 3 mg 3 ml inhalation BID 11/09/22 06/17/24 History (2.5 mg base)/3 mL nebulization soln ascorbate calcium (vitamin C) 500 500 mg PO DAILY 12/29/22 06/17/24 History mg tablet ferrous sulfate 325 mg (65 mg 650 mg PO DAILY 12/29/22 06/17/24 History iron) tablet (FeroSul) budesonide 160 mcg-glycopyr 9 See Rx Instructions .Route 04/11/23 06/17/24 Rx mcg-formot 4.8 mcg/actuation HFA .COMPLEX #10.7 grams inhaler (Breztri Aerosphere) ixekizumab 80 mg/mL subcutaneous See Rx Instructions .Route 06/22/23 06/17/24 Rx auto-injector (Taltz Autoinjector) .COMPLEX #3 mL palbociclib 100 mg capsule 100 mg PO DAILY 07/18/23 06/17/24 History (Ibrance) pregabalin 150 mg capsule 150 mg PO DAILY #90 caps 09/13/23 06/17/24 Rx folic acid 1 mg tablet 1 mg PO DAILY #90 tabs 01/26/24 06/17/24 Rx acetaminophen 500 mg tablet 1,000 mg PO BID pain 03/11/24 06/17/24 History cholestyramine-aspartame 4 gram 1 ea PO TIDWM PRN IBS 03/11/24 06/17/24 History oral powder for susp in a packet (Prevalite) quetiapine 25 mg tablet 25 mg PO QHS #90 tabs 04/15/24 06/17/24 Rx roflumilast 250 mcg tablet 250 mcg PO EVERY OTHER DAY 05/22/24 06/17/24 History (Daliresp) varenicline tartrate 0.03 mg/spray 1 spray intranasal DAILY 05/22/24 06/17/24 History metered nasal spray (Tyrvaya) vitamin B complex 1 tablet PO DAILY 05/22/24 06/17/24 History duloxetine 30 mg capsule,delayed 30 mg PO DAILY #30 caps 05/27/24 06/17/24 Rx release amoxicillin 875 mg-potassium 1 tablet PO Q12H #28 tabs 06/07/24 06/17/24 Rx clavulanate 125 mg tablet diclofenac sodium 1 % topical gel 2 g topical QID PRN pain #100 grams 06/07/24 06/17/24 Rx (Arthritis Pain (diclofenac)) doxycycline hyclate 100 mg tablet 100 mg PO Q12HR #28 tabs 06/07/24 06/17/24 Rx duloxetine 30 mg capsule,delayed 30 mg PO DAILY #0 caps 06/07/24 06/17/24 Rx release (Cymbalta) sennosides 8.6 mg-docusate sodium 2 tab PO BID #0 tabs 06/07/24 06/17/24 Rx 50 mg tablet (Senokot-S) vit C 250 mg-vit E 90 mg-zinc 40 1 tablet PO BID 06/17/24 06/17/24 History mg-copper 1 rk-baifru-sdflft capsule (PreserVision AREDS-2) Patient hx anesthesia problems: none Family hx anesthesia problems: none Results Review: All pre-operative results and documents have been reviewed as part of the pre- operative evaluation. FOR[facility]LY [facility] Past Medical History Medical History (Updated 06/20/24 @ 17:13 by Sincere Maurice MD) Acute on chronic anemia Dysfunction of left eustachian tube Abnormal findings on diagnostic imaging of other specified body structures Cerumen debris on tympanic membrane of both ears Acute and chronic respiratory failure with hypoxia Hypertension Pleural effusion Chronic renal insufficiency, stage III (moderate) Pneumonia PVD (peripheral vascular disease) Colon polyp Psoriatic arthritis Dependence on continuous supplemental oxygen Other specified counseling GERD (gastroesophageal reflux disease) Tobacco abuse Lung cancer Encounter for medication management Neuropathy Anxiety Arthritis Breast cancer COPD (chronic obstructive pulmonary disease) Irritable bowel disease Surgical History Surgical History S/P lumpectomy of breast History of tonsillectomy Hx of cholecystectomy History of liver biopsy H/O cataract extraction History of appendectomy History of knee replacement History of carpal tunnel release History of lung surgery Family History Family History Mother Diabetes mellitus Family history of lung cancer Family history of malignant neoplasm of uterus Family history of psoriasis Family history of malignant neoplasm Sibling Diabetes mellitus Father Family history of chronic obstructive pulmonary disease Family history of lung cancer Hypertension Family history of cardiovascular disease Grandparent Family history of malignant neoplasm of uterus Family history of coronary artery disease Social History Social History Smoking packs per day: 0.5 Smoking cigarettes per day: 10.0 Years smoked: 50 Smoking pack-years: 25.00 Smoking status: Former smoker Second hand tobacco smoke exposure: Yes Smoking end date: 04/22/24 Alcohol intake: never Substance use: never Substance use type: does not use Do You Feel Safe in your Home?: Yes Lack of Transportation: No Lack of Food: Never True Current Housing: I Have Housing Concerned About Future Housing: No Difficulty Paying Gas/Electric Bills: No Difficulty Paying for Meds: No Currently Unemployed: No Education: High School Diploma/GED Difficulty w/ Childcare or Family Care: No Living arrangements: with family Occupation/Education: retired Gender identity (if verbalized by the patient): Female Spiritual care concerns: Yes Agree to blood products: Yes Anes - Eval Final PreProcedure Day of Procedure 06/21/24 14:15 Patient weight: normal Heart: regular rate and rhythm Lungs: clear to auscultation Airway: Mallampati scale class III Neurological: alert and oriented Last oral intake: >/= 8 hours ASA classification: IV Emergent: no Anesthetic plan: proceed Anesthesia type and monitoring: general GIVS and standard monitoring Results Review: All pre-operative results and documents have been reviewed as part of the pre- operative evaluation. Informed Consent: The patient's anesthetic plan and its attendant risks and benefits were discussed with the patient/family/POA. Questions were solicited and answers provided to the satisfaction of the patient/family/POA.
--- NOTE | 2024-06-21 14:57 | SUR.OPER ---
EGD: [id number] COLON: Start 4247
--- NOTE | 2024-06-21 16:19 | P.PNIM_ITS ---
Progress Note: A&P Assessment and Plan (1) Anemia: Code(s): D64.9 - Anemia, unspecified Status: Acute Assessment and Plan: * Acute on chronic * Consult Dr. Michaud * Check iron panel * Transfuse 2 units packed red blood cells * Monitor and trend labs and vital signs * Fall precautions * telemetry * Will defer any Procrit ordering to oncology consult. * Consult GI * Prior history of colonoscopy few years ago * Denies upper endoscopy was done before * EGD shows hiatal hernia,gastritis and Duodenal AVM. * Colonoscopy shows diverticulosis without perforation or bleeding and internal hemorrhoids. (2) Lung cancer: Code(s): C34.90 - Malignant neoplasm of unspecified part of unspecified bronchus or lung Status: Chronic Assessment and Plan: * Follows with Dr. Michaud (3) H/O malignant neoplasm of breast: Code(s): Z85.3 - Personal history of malignant neoplasm of breast Status: Chronic Assessment and Plan: * Continue anastrozole (4) COPD (chronic obstructive pulmonary disease): Code(s): J44.9 - Chronic obstructive pulmonary disease, unspecified Status: Chronic Assessment and Plan: * Chronic and not acutely in exacerbation. * Suspect patient's dyspnea was from her acute anemia * Continue supplemental oxygen the patient wears at home * Continue home medications once they have been confirmed * Monitor vital signs (5) Dependence on continuous supplemental oxygen: Code(s): Z99.81 - Dependence on supplemental oxygen Status: Chronic Assessment and Plan: * See 4. (6) Hypertension: Code(s): I10 - Essential (primary) hypertension Status: Chronic Assessment and Plan: * Monitor and trend labs and vital signs * Continue home medication (7) Anxiety and depression: Code(s): F41.9 - Anxiety disorder, unspecified; F32.9 - Major depressive disorder, single episode, unspecified Status: Chronic Assessment and Plan: * Continue home medications (8) GERD (gastroesophageal reflux disease): Qualifiers: Esophagitis presence: without esophagitis Qualified Code(s): K21.9 - Gastro-esophageal reflux disease without esophagitis Code(s): K21.9 - Gastro-esophageal reflux disease without esophagitis Status: Chronic Assessment and Plan: * Continue home medications (9) Mastoiditis of left side: Code(s): H70.92 - Unspecified mastoiditis, left ear Status: Acute Assessment and Plan: Status post antibiotics Consulted ENT Subjective Date/time seen: 06/21/24 16:19 Interval history: Patient underwent EGD and Colonoscopy. EGD shows hiatal hernia,gastritis and Duodenal AVM.Colonoscopy shows diverticulosis without perforation or bleeding and internal hemorrhoids. Review of Systems Review of Systems: All systems reviewed & are unremarkable except as noted in HPI and below Exam Const: General: comfortable and no acute distress Other: Pleasant, elderly female patient lying supine in stretcher this time in no acute distress. She is talkative. HENMT: Face/Nose/Sinus: Normal nares present Mouth: Yes moist mucous membranes Other: Head appears atraumatic normocephalic. Eyes: General: appearance normal, both eyes and all related structures Sclera: sclerae normal Pupils: Equal, round and reactive pupils present EOM: EOMs intact bilaterally Neck: Neck: supple and no JVD Chest: Other: Nontender to palpation, no crepitus or edema Resp: Effort & Inspection: normal respiratory effort Auscultation: clear to auscultation bilaterally Cardio: Rate: regular rate Rhythm: regular rhythm Heart sounds: no gallops, no murmurs and no rubs GI: Inspection: non-distended Auscultation: normal bowel sounds Skin: General skin exam: No normal color (Pale), No lesion and No rashes Lesions: no lesions noted Rashes: no rashes noted Wounds: no wounds Neuro: Cranial nerves: Yes Equal, round and reactive pupils present Speech: normal speech Motor exam (neuro): Abnormal motor strength present (Generalized, nonfocal weakness) Sensory Exam: normal sensation Other: Did not test gait Extrem: General: normal to inspection, no edema and no pedal edema Psych: Mental Status: mental status grossly normal Affect: normal affect Objective Data Vital Signs Vital Signs: Vital Signs - 24 hr 06/20/24 20:10 06/20/24 20:10 06/20/24 20:20 Temperature Pulse Rate 89 90 Respiratory Rate 20 20 Blood Pressure Pulse Oximetry 97 Oxygen Delivery Nasal Cannula Oxygen Flow Rate 3 06/20/24 22:00 06/20/24 22:45 06/20/24 22:45 Temperature 97.2 F L Pulse Rate 92 85 Respiratory Rate 16 Blood Pressure 135/46 L Pulse Oximetry 92 92 Oxygen Delivery Nasal Cannula Oxygen Flow Rate 4 06/21/24 00:00 06/21/24 04:00 06/21/24 05:50 Temperature 97.3 F L Pulse Rate 97 80 78 Respiratory Rate 18 Blood Pressure 136/63 Pulse Oximetry 98 Oxygen Delivery Oxygen Flow Rate 06/21/24 07:42 06/21/24 07:42 06/21/24 07:52 Temperature Pulse Rate 83 78 Respiratory Rate 20 20 Blood Pressure Pulse Oximetry 96 Oxygen Delivery Nasal Cannula Oxygen Flow Rate 4 06/21/24 08:00 06/21/24 08:00 06/21/24 14:11 Temperature 98.6 F Pulse Rate 78 87 105 H Respiratory Rate 20 20 Blood Pressure 143/64 H Pulse Oximetry 96 94 Oxygen Delivery Nasal Cannula Nasal Cannula Oxygen Flow Rate 4 6 06/21/24 15:08 06/21/24 15:18 06/21/24 15:28 Temperature Pulse Rate 106 H 103 H 98 Respiratory Rate 25 H 25 H 22 H Blood Pressure 125/68 144/59 H 137/57 L Pulse Oximetry 91 92 91 Oxygen Delivery Nasal Cannula Nasal Cannula Nasal Cannula Oxygen Flow Rate 6 6 6 Intake/Output Intake/Output: Intake & Output 06/18/24 06/19/24 06/20/24 06/21/24 23:59 23:59 23:59 23:59 Intake Total 1800 720 960 0 Balance 1800 720 960 0 Meds/Results Medications: Active Medications Generic Name Dose Route Start Last Admin Trade Name Freq PRN Reason Stop Dose Admin Acetaminophen 650 mg 06/17/24 21:46 Acetaminophen 325 Mg Tablet PO Q4H PRN Mild Pain (1-3) or Fever Acetaminophen 1,000 mg 06/18/24 21:00 06/21/24 12:56 Acetaminophen 500 Mg Tablet PO Not Given Q12HR [facility] Hydrocodone Bitart/Acetaminophen 1 tab 06/17/24 21:46 Hydrocodone/Acetaminophen (*Crx) 5-325 Mg Tablet PO Q4H PRN Pain Rated 4-6 Albuterol/Ipratropium 3 ml 06/18/24 20:00 06/21/24 07:41 Ipratropium 0.5 Mg/Albuterol Sulfate 2.5 Mg Ampul.Neb 3 Ml INHALATION 3 ml Q12HRT [facility] Administration Anastrozole 1 mg 06/19/24 09:00 06/21/24 12:56 Anastrozole (*Chemo) 1 Mg Tablet PO Not Given DAILY [facility] Ascorbic Acid 500 mg 06/19/24 09:00 06/21/24 09:32 Ascorbic Acid 500 Mg Tablet PO Not Given DAILY [facility] Aspirin 81 mg 06/19/24 09:00 06/21/24 09:32 Aspirin 81 Mg Enteric Tablet PO Not Given DAILY [facility] Cholestyramine Resin 4 gm 06/18/24 15:36 Cholestyramine Light 4 Gm Powd.Pack PO TIDWM PRN IBS Diclofenac Sodium 1 applic 06/18/24 15:36 Diclofenac Sodium 1% 100 Gm Gel (*Bkc) TOPICAL QID PRN pain Duloxetine HCl 30 mg 06/19/24 09:00 06/21/24 12:56 Duloxetine Hcl 30 Mg Capsule.Dr PO Not Given DAILY [facility] Ferrous Sulfate 650 mg 06/19/24 12:00 06/21/24 12:56 Ferrous Sulfate [address] BY MOUTH Not Given DAILY@1200 [facility] Fluticasone/Umeclidinium/Vilanterol 1 puff 06/19/24 08:00 06/21/24 07:41 Fluticasone/Umeclidin/Vilanter 100-62.5-25 Mcg [facility]a [facility] Folic Acid 1 mg 06/19/24 09:00 06/21/24 09:32 Folic Acid 1 Mg Tablet PO Not Given DAILY [facility] Hydrocortisone 1 applic 06/19/24 21:00 06/21/24 12:57 Hydrocortisone 2.5% Cream 30 Gm Tube RECTAL 06/29/24 20:59 1 applic Q12HR [facility] Administration Multivitamins/Minerals 1 tablet 06/18/24 17:00 06/21/24 09:31 Opti-Gen Tab PO Not Given BID [facility] Ondansetron HCl 4 mg 06/17/24 21:46 Ondansetron Inj 4 Mg/2 Ml Vial IV PUSH Q4H PRN Nausea Pantoprazole Sodium 40 mg 06/22/24 09:00 Pantoprazole 40 Mg Tablet PO QAM [facility] Pregabalin 150 mg 06/19/24 09:00 06/21/24 12:56 Pregabalin (*Crx) 75 Mg Capsule PO Not Given DAILY [facility] Quetiapine Fumarate 25 mg 06/18/24 21:00 06/20/24 22:44 Quetiapine Fumarate 25 Mg Tablet PO 25 mg QHS [facility] Administration Roflumilast 250 mcg 06/18/24 16:00 06/20/24 17:58 Roflumilast 250 Mcg Tablet PO 250 mcg Q48H [facility] Administration Vitamin B Complex 1 cap 06/19/24 09:00 06/21/24 09:32 Vitamin B Complex Capsule PO Not Given DAILY [facility] Vitamin D 1,000 units 06/19/24 09:00 06/21/24 09:32 Cholecalciferol 1,000 Units Tablet PO Not Given DAILY [facility] Radiology Results: ITS Impressions Chest X-Ray 06/17/24 17:47 IMPRESSION: Pulmonary vascular congestion, without focal infiltrate or effusion. Head CT 06/17/24 20:58 Impression: No acute intracranial hemorrhage or suspicious mass effect. Redemonstration of a left sided mastoid effusion. Chest CT 06/20/24 14:19 Impression: Multiple pulmonary nodules, as detailed above. There is a new 5 mm right lower lobe nodule and an increased 1 cm left upper lobe nodule. Remaining nodules are unchanged. Mild interval progression of disease is a consideration. Extensive mild amorphous groundglass opacity could reflect pulmonary edema, posttreatment change, or nonspecific bronchitis. Correlate clinically. Stable postoperative change right lung apex. Stable peripherally sclerotic lesion in the L1 vertebral body. Quality VTE Prophylaxis VTE prophylaxis: mechanical ordered Hospitalist [facility] Advance Care Plan I have confirmed that the patient's Advanced Care Plan is present, code status is documented, or surrogate decision maker is listed in patient medical record.: Yes Medication Reconciliation I have utilized all available resources to obtain, update and review the patients current medications (includes all prescriptions, OTC, herbals, cannabis, and nutritional supplements).: Yes
[2024-06-21] MEDS: OPTI-GEN TAB 1 TABLET PO (17:11)
[2024-06-21] MEDS: QUEtiapine FUMARATE 25 MG TABLET PO (20:32)
[2024-06-21] MEDS: ACETAMINOPHEN 500 MG TABLET 1000 MG PO (20:33)
[2024-06-22] VITALS (12 sets, daily range): BP systolic 125–148; BP diastolic 60–68; PULSE 60–89; RESP 18–20; TEMP 36.2–36.8; O2SAT 93–96
[2024-06-22 05:50] LABS: Hemoglobin 8.1 g/dL (12.0-15.0); Mean Corpuscular Hemoglobin 28.4 pg (26-34); Mean Corpuscular Volume 94.7 fl (80-100); Mean Platelet Volume 9.4 fl (7.4-10.4); Platelet Count Result 241 k/mm3 (150-375); Red Blood Count 2.85 M/mm3 (4.2-5.4); Red Cell Distribution Width 14.6 % (11.5-14.5); White Blood Count 6.3 K/mm3 (4.5-10.0)
[2024-06-22 06:00] LABS: Alanine Aminotransferase 17 U/L (6-35); Albumin Level 3.3 g/dL (3.5-5.1); Alkaline Phosphatase 106 U/L (38-126); Anion Gap 3 mmol/L (4-12); Aspartate Amino Transferase 26 U/L (14-36); Bilirubin,Total 0.3 mg/dL (0.2-1.3); Blood Urea Nitrogen 21 mg/dL (7-17); Calcium 11.3 mg/dL (8.4-10.2); Carbon Dioxide 36 mmol/L (22-30); Chloride 100 mmol/L (98-107); Estimated CRCL calculation 34 ml/min; Estimated Glomerular Filt Rate 43; Glucose 95 mg/dL (65-110); Potassium 3.5 mmol/L (3.4-5.0); Sodium 139 mmol/L (137-145)
[2024-06-22] MEDS: FLUTICASONE/UMECLIDIN/VILANTER 100-62.5-25 MCG ELLIPTA 1 PUFF INHALATION (09:11)
[2024-06-22] MEDS: IPRATROPIUM 0.5 MG/ALBUTEROL SULFATE 2.5 MG AMPUL.NEB 3 ML INHALATION ×2 (09:11→22:22)
[2024-06-22] MEDS: FOLIC ACID 1 MG TABLET PO (10:09)
[2024-06-22] MEDS: DULoxetine HCL 30 MG CAPSULE.DR PO (10:09)
[2024-06-22] MEDS: ASPIRIN 81 MG ENTERIC TABLET PO (10:09)
[2024-06-22] MEDS: VITAMIN B COMPLEX CAPSULE 1 CAP PO (10:09)
[2024-06-22] MEDS: ANASTROZOLE (*CHEMO) 1 MG TABLET PO (10:09)
[2024-06-22] MEDS: PANTOPRAZOLE 40 MG TABLET PO (10:09)
[2024-06-22] MEDS: CHOLECALCIFEROL 1,000 UNITS TABLET 1000 UNITS PO (10:09)
[2024-06-22] MEDS: PREGABALIN (*CRX) 75 MG CAPSULE 150 MG PO (10:09)
[2024-06-22] MEDS: ACETAMINOPHEN 500 MG TABLET 1000 MG PO ×2 (10:10→21:32)
[2024-06-22] MEDS: HYDROCORTISONE 2.5% CREAM 30 GM TUBE 1 APPLIC RECTAL ×2 (10:10→21:33)
[2024-06-22] MEDS: OPTI-GEN TAB 1 TABLET PO ×2 (10:10→17:51)
[2024-06-22] MEDS: ASCORBIC ACID 500 MG TABLET PO (10:12)
[2024-06-22] MEDS: FERROUS SULFATE 325 MG TABLET DR 650 MG BY MOUTH (11:46)
--- NOTE | 2024-06-22 11:49 | PCOTNOTE ---
Attempted to see pt for OT treatment. Pt declined to participate in any therapeutic task, self care task, and/or strengthening stating she would like to take a nap. Pt was educated on the importance of participation in therapy services for increase independence with daily tasks however, pt continued to state that she rather have a nap right now. Therapist adjusted pt's head of bed for increase comfort. STEVE Ding is aware of pt's refusal. Will continue per poc duration/frequency.
--- NOTE | 2024-06-22 16:45 | P.PNIM_ITS ---
Progress Note: A&P Assessment and Plan (1) Anemia: Code(s): D64.9 - Anemia, unspecified Status: Acute Assessment and Plan: * Acute on chronic * Consult Dr. Michaud * Check iron panel * Transfuse 2 units packed red blood cells * Monitor and trend labs and vital signs * Fall precautions * telemetry * Will defer any Procrit ordering to oncology consult. * Consult GI * Prior history of colonoscopy few years ago * Denies upper endoscopy was done before * EGD shows hiatal hernia,gastritis and Duodenal AVM. * Colonoscopy shows diverticulosis without perforation or bleeding and internal hemorrhoids. (2) Lung cancer: Code(s): C34.90 - Malignant neoplasm of unspecified part of unspecified bronchus or lung Status: Chronic Assessment and Plan: * Follows with Dr. Michaud (3) H/O malignant neoplasm of breast: Code(s): Z85.3 - Personal history of malignant neoplasm of breast Status: Chronic Assessment and Plan: * Continue anastrozole (4) COPD (chronic obstructive pulmonary disease): Code(s): J44.9 - Chronic obstructive pulmonary disease, unspecified Status: Chronic Assessment and Plan: * Chronic and not acutely in exacerbation. * Suspect patient's dyspnea was from her acute anemia * Continue supplemental oxygen the patient wears at home * Continue home medications once they have been confirmed * Monitor vital signs (5) Dependence on continuous supplemental oxygen: Code(s): Z99.81 - Dependence on supplemental oxygen Status: Chronic Assessment and Plan: * See 4. (6) Hypertension: Code(s): I10 - Essential (primary) hypertension Status: Chronic Assessment and Plan: * Monitor and trend labs and vital signs * Continue home medication (7) Anxiety and depression: Code(s): F41.9 - Anxiety disorder, unspecified; F32.9 - Major depressive disorder, single episode, unspecified Status: Chronic Assessment and Plan: * Continue home medications (8) GERD (gastroesophageal reflux disease): Qualifiers: Esophagitis presence: without esophagitis Qualified Code(s): K21.9 - Gastro-esophageal reflux disease without esophagitis Code(s): K21.9 - Gastro-esophageal reflux disease without esophagitis Status: Chronic Assessment and Plan: * Continue home medications (9) Mastoiditis of left side: Code(s): H70.92 - Unspecified mastoiditis, left ear Status: Acute Assessment and Plan: Status post antibiotics Consulted ENT Subjective Date/time seen: 06/22/24 16:45 Interval history: Patient was examined at the bedside. Patient is little anxious due to drop in the hemoglobin and was not able to find the source of bleeding. Discussed with her son and updated. As mentioned yesterday patient underwent EGD and Colonoscopy. EGD shows hiatal hernia,gastritis and Duodenal AVM.Colonoscopy shows diverticulosis without perforation or bleeding and internal hemorrhoids. Review of Systems Review of Systems: All systems reviewed & are unremarkable except as noted in HPI and below Exam Const: General: comfortable and no acute distress Other: Pleasant, elderly female patient lying supine in stretcher this time in no acute distress. She is talkative. HENMT: Face/Nose/Sinus: Normal nares present Mouth: Yes moist mucous membranes Other: Head appears atraumatic normocephalic. Eyes: General: appearance normal, both eyes and all related structures Sclera: sclerae normal Pupils: Equal, round and reactive pupils present EOM: EOMs intact bilaterally Neck: Neck: supple and no JVD Chest: Other: Nontender to palpation, no crepitus or edema Resp: Effort & Inspection: normal respiratory effort Auscultation: clear to auscultation bilaterally Cardio: Rate: regular rate Rhythm: regular rhythm Heart sounds: no gallops, no murmurs and no rubs GI: Inspection: non-distended Auscultation: normal bowel sounds Skin: General skin exam: No normal color (Pale), No lesion and No rashes Lesions: no lesions noted Rashes: no rashes noted Wounds: no wounds Neuro: Cranial nerves: Yes Equal, round and reactive pupils present Speech: normal speech Motor exam (neuro): Abnormal motor strength present (Generalized, nonfocal weakness) Sensory Exam: normal sensation Other: Did not test gait Extrem: General: normal to inspection, no edema and no pedal edema Psych: Mental Status: mental status grossly normal Affect: normal affect Objective Data Vital Signs Vital Signs: Vital Signs - 24 hr 06/21/24 20:00 06/21/24 20:04 06/21/24 20:08 Temperature Pulse Rate 90 87 Respiratory Rate 20 20 Blood Pressure Pulse Oximetry 92 Oxygen Delivery Nasal Cannula Oxygen Flow Rate 4 06/21/24 20:17 06/21/24 20:30 06/21/24 20:30 Temperature 97.9 F Pulse Rate 102 H 94 Respiratory Rate 18 Blood Pressure 123/54 L Pulse Oximetry 92 96 Oxygen Delivery Nasal Cannula Oxygen Flow Rate 4 06/22/24 00:00 06/22/24 04:00 06/22/24 05:00 Temperature 97.9 F Pulse Rate 77 79 84 Respiratory Rate 18 Blood Pressure 132/60 Pulse Oximetry 95 Oxygen Delivery Oxygen Flow Rate 06/22/24 08:00 06/22/24 09:11 06/22/24 09:11 Temperature Pulse Rate 87 86 Respiratory Rate 20 Blood Pressure Pulse Oximetry 94 Oxygen Delivery Nasal Cannula Oxygen Flow Rate 4 06/22/24 09:23 06/22/24 10:10 06/22/24 12:00 Temperature Pulse Rate 89 84 Respiratory Rate 20 Blood Pressure Pulse Oximetry Oxygen Delivery Nasal Cannula Oxygen Flow Rate 4 06/22/24 14:00 06/22/24 16:00 Temperature 98.3 F Pulse Rate 77 79 Respiratory Rate 18 Blood Pressure 125/62 Pulse Oximetry 96 Oxygen Delivery Oxygen Flow Rate Intake/Output Intake/Output: Intake & Output 06/19/24 06/20/24 06/21/24 06/22/24 23:59 23:59 23:59 23:59 Intake Total 720 960 480 660 Balance 720 960 480 660 Meds/Results Medications: Active Medications Generic Name Dose Route Start Last Admin Trade Name Freq PRN Reason Stop Dose Admin Acetaminophen 650 mg 06/17/24 21:46 Acetaminophen 325 Mg Tablet PO Q4H PRN Mild Pain (1-3) or Fever Acetaminophen 1,000 mg 06/18/24 21:00 06/22/24 10:10 Acetaminophen 500 Mg Tablet PO 1,000 mg Q12HR [facility] Administration Hydrocodone Bitart/Acetaminophen 1 tab 06/17/24 21:46 Hydrocodone/Acetaminophen (*Crx) 5-325 Mg Tablet PO Q4H PRN Pain Rated 4-6 Albuterol/Ipratropium 3 ml 06/18/24 20:00 06/22/24 09:11 Ipratropium 0.5 Mg/Albuterol Sulfate 2.5 Mg Ampul.Neb 3 Ml INHALATION 3 ml Q12HRT [facility] Administration Anastrozole 1 mg 06/19/24 09:00 06/22/24 10:09 Anastrozole (*Chemo) 1 Mg Tablet PO 1 mg DAILY [facility] Administration Ascorbic Acid 500 mg 06/19/24 09:00 06/22/24 10:12 Ascorbic Acid 500 Mg Tablet PO 500 mg DAILY [facility] Administration Aspirin 81 mg 06/19/24 09:00 06/22/24 10:09 Aspirin 81 Mg Enteric Tablet PO 81 mg DAILY [facility] Administration Cholestyramine Resin 4 gm 06/18/24 15:36 Cholestyramine Light 4 Gm Powd.Pack PO TIDWM PRN IBS Diclofenac Sodium 1 applic 06/18/24 15:36 Diclofenac Sodium 1% 100 Gm Gel (*Bkc) TOPICAL QID PRN pain Duloxetine HCl 30 mg 06/19/24 09:00 06/22/24 10:09 Duloxetine Hcl 30 Mg Capsule.Dr PO 30 mg DAILY [facility] Administration Ferrous Sulfate 650 mg 06/19/24 12:00 06/22/24 11:46 Ferrous Sulfate [address] BY MOUTH 650 mg DAILY@1200 [facility] Administration Fluticasone/Umeclidinium/Vilanterol 1 puff 06/19/24 08:00 06/22/24 09:11 Fluticasone/Umeclidin/Vilanter 100-62.5-25 Mcg Ellipta INHALATION 1 puff DAILYRT [facility] Administration Folic Acid 1 mg 06/19/24 09:00 06/22/24 10:09 Folic Acid 1 Mg Tablet PO 1 mg DAILY [facility] Administration Hydrocortisone 1 applic 06/19/24 21:00 06/22/24 10:10 Hydrocortisone 2.5% Cream 30 Gm Tube RECTAL 06/29/24 20:59 1 applic Q12HR [facility] Administration Multivitamins/Minerals 1 tablet 06/18/24 17:00 06/22/24 10:10 Opti-Gen Tab PO 1 tablet BID [facility] Administration Ondansetron HCl 4 mg 06/17/24 21:46 Ondansetron Inj 4 Mg/2 Ml Vial IV PUSH Q4H PRN Nausea Pantoprazole Sodium 40 mg 06/22/24 09:00 06/22/24 10:09 Pantoprazole 40 Mg Tablet PO 40 mg QAM [facility] Administration Pregabalin 150 mg 06/19/24 09:00 06/22/24 10:09 Pregabalin (*Crx) 75 Mg Capsule PO 150 mg DAILY [facility] Administration Quetiapine Fumarate 25 mg 06/18/24 21:00 06/21/24 20:32 Quetiapine Fumarate 25 Mg Tablet PO 25 mg QHS [facility] Administration Roflumilast 250 mcg 06/18/24 16:00 06/20/24 17:58 Roflumilast 250 Mcg Tablet PO 250 mcg Q48H [facility] Administration Vitamin B Complex 1 cap 06/19/24 09:00 06/22/24 10:09 Vitamin B Complex Capsule PO 1 cap DAILY [facility] Administration Vitamin D 1,000 units 06/19/24 09:00 06/22/24 10:09 Cholecalciferol 1,000 Units Tablet PO 1,000 units DAILY [facility] Administration Radiology Results: ITS Impressions Chest X-Ray 06/17/24 17:47 IMPRESSION: Pulmonary vascular congestion, without focal infiltrate or effusion. Head CT 06/17/24 20:58 Impression: No acute intracranial hemorrhage or suspicious mass effect. Redemonstration of a left sided mastoid effusion. Chest CT 06/20/24 14:19 Impression: Multiple pulmonary nodules, as detailed above. There is a new 5 mm right lower lobe nodule and an increased 1 cm left upper lobe nodule. Remaining nodules are unchanged. Mild interval progression of disease is a consideration. Extensive mild amorphous groundglass opacity could reflect pulmonary edema, posttreatment change, or nonspecific bronchitis. Correlate clinically. Stable postoperative change right lung apex. Stable peripherally sclerotic lesion in the L1 vertebral body. Labs Labs: Laboratory Results - last 24 hr 06/22/24 05:39 WBC 6.3 RBC 2.85 L Hgb 8.1 L Hct 27.0 L MCV 94.7 MCH 28.4 MCHC 30.0 L RDW 14.6 H Plt Count 241 MPV 9.4 Sodium 139 Potassium 3.5 Chloride 100 Carbon Dioxide 36 H Anion Gap 3 L BUN 21 H Creatinine 1.21 H Estim Creat Clear Calc 34 Estimated GFR 43 L Glucose 95 Calcium 11.3 H Total Bilirubin 0.3 AST 26 ALT 17 Alkaline Phosphatase 106 Total Protein 6.0 L Albumin 3.3 L Quality VTE Prophylaxis VTE prophylaxis: mechanical ordered Hospitalist [facility] Advance Care Plan I have confirmed that the patient's Advanced Care Plan is present, code status is documented, or surrogate decision maker is listed in patient medical record.: Yes Medication Reconciliation I have utilized all available resources to obtain, update and review the patients current medications (includes all prescriptions, OTC, herbals, cannabis, and nutritional supplements).: Yes
[2024-06-22] MEDS: ROFLUMILAST 250 MCG TABLET PO (17:51)
[2024-06-22] MEDS: QUEtiapine FUMARATE 25 MG TABLET PO (21:32)
[2024-06-23] VITALS (14 sets, daily range): BP systolic 119–135; BP diastolic 56–83; PULSE 75–109; RESP 16–20; TEMP 36.2–36.9; O2SAT 92–97
[2024-06-23 05:36] LABS: Hematocrit 24.7 % (37.0-47.0); Hemoglobin 7.5 g/dL (12.0-15.0); Mean Corpuscular HGB Conc 30.4 g/dl (32-36); Mean Corpuscular Volume 92.2 fl (80-100); Mean Platelet Volume 9.2 fl (7.4-10.4); Platelet Count Result 261 k/mm3 (150-375); Red Blood Count 2.68 M/mm3 (4.2-5.4); Red Cell Distribution Width 14.4 % (11.5-14.5); White Blood Count 5.7 K/mm3 (4.5-10.0)
[2024-06-23 05:49] LABS: Alanine Aminotransferase 14 U/L (6-35); Albumin Level 3.2 g/dL (3.5-5.1); Alkaline Phosphatase 104 U/L (38-126); Anion Gap 1 mmol/L (4-12); Aspartate Amino Transferase 22 U/L (14-36); Bilirubin,Total 0.2 mg/dL (0.2-1.3); Blood Urea Nitrogen 21 mg/dL (7-17); Calcium 12.1 mg/dL (8.4-10.2); Carbon Dioxide 37 mmol/L (22-30); Chloride 100 mmol/L (98-107); Estimated CRCL calculation 27 ml/min; Estimated Glomerular Filt Rate 33; Glucose 103 mg/dL (65-110); Potassium 4.1 mmol/L (3.4-5.0); Sodium 138 mmol/L (137-145)
[2024-06-23] MEDS: ALENDRONATE SODIUM 10 MG TABLET PO (06:57)
[2024-06-23] MEDS: ASCORBIC ACID 500 MG TABLET PO (08:27)
[2024-06-23] MEDS: ASPIRIN 81 MG ENTERIC TABLET PO (08:27)
[2024-06-23] MEDS: VITAMIN B COMPLEX CAPSULE 1 CAP PO (08:27)
[2024-06-23] MEDS: OPTI-GEN TAB 1 TABLET PO ×2 (08:28→17:12)
[2024-06-23] MEDS: ACETAMINOPHEN 500 MG TABLET 1000 MG PO ×2 (08:28→20:25)
[2024-06-23] MEDS: PANTOPRAZOLE 40 MG TABLET PO (08:28)
[2024-06-23] MEDS: ANASTROZOLE (*CHEMO) 1 MG TABLET PO (08:28)
[2024-06-23] MEDS: PREGABALIN (*CRX) 75 MG CAPSULE 150 MG PO (08:28)
[2024-06-23] MEDS: FOLIC ACID 1 MG TABLET PO (08:28)
[2024-06-23] MEDS: CHOLECALCIFEROL 1,000 UNITS TABLET 1000 UNITS PO (08:29)
[2024-06-23] MEDS: DULoxetine HCL 30 MG CAPSULE.DR PO (08:29)
[2024-06-23] MEDS: SODIUM CHLORIDE 0.9% IV 1,000 ML 100 ML IV CONT (08:29)
[2024-06-23] MEDS: HYDROCORTISONE 2.5% CREAM 30 GM TUBE 1 APPLIC RECTAL ×2 (08:29→20:28)
[2024-06-23] MEDS: IPRATROPIUM 0.5 MG/ALBUTEROL SULFATE 2.5 MG AMPUL.NEB 3 ML INHALATION ×2 (08:43→20:03)
[2024-06-23] MEDS: FLUTICASONE/UMECLIDIN/VILANTER 100-62.5-25 MCG ELLIPTA 1 PUFF INHALATION (08:45)
[2024-06-23 09:56] LABS: Parathyroid Intact < 14.5 pg/mL (14.5-75.2)
[2024-06-23] MEDS: FERROUS SULFATE 325 MG TABLET DR 650 MG BY MOUTH (12:14)
--- NOTE | 2024-06-23 14:38 | PCPTNOTE ---
Attempted to see patient for PT, however patient was getting a midline placed and unable to be seen.
--- NOTE | 2024-06-23 15:59 | P.PNIM_ITS ---
Progress Note: A&P Assessment and Plan (1) Anemia: Code(s): D64.9 - Anemia, unspecified Status: Acute Assessment and Plan: * Acute on chronic * Consult Dr. Michaud * Check iron panel * Transfuse 2 units packed red blood cells * Monitor and trend labs and vital signs * Fall precautions * telemetry * Will defer any Procrit ordering to oncology consult. * Consult GI * Prior history of colonoscopy few years ago * Denies upper endoscopy was done before * EGD shows hiatal hernia,gastritis and Duodenal AVM. * Colonoscopy shows diverticulosis without perforation or bleeding and internal hemorrhoids. * Pending tagged RBC scan (2) Lung cancer: Code(s): C34.90 - Malignant neoplasm of unspecified part of unspecified bronchus or lung Status: Chronic Assessment and Plan: * Follows with Dr. Michaud (3) H/O malignant neoplasm of breast: Code(s): Z85.3 - Personal history of malignant neoplasm of breast Status: Chronic Assessment and Plan: * Continue anastrozole (4) COPD (chronic obstructive pulmonary disease): Code(s): J44.9 - Chronic obstructive pulmonary disease, unspecified Status: Chronic Assessment and Plan: * Chronic and not acutely in exacerbation. * Suspect patient's dyspnea was from her acute anemia * Continue supplemental oxygen the patient wears at home * Continue home medications once they have been confirmed * Monitor vital signs (5) Dependence on continuous supplemental oxygen: Code(s): Z99.81 - Dependence on supplemental oxygen Status: Chronic Assessment and Plan: * See 4. (6) Hypertension: Code(s): I10 - Essential (primary) hypertension Status: Chronic Assessment and Plan: * Monitor and trend labs and vital signs * Continue home medication (7) Anxiety and depression: Code(s): F41.9 - Anxiety disorder, unspecified; F32.9 - Major depressive disorder, single episode, unspecified Status: Chronic Assessment and Plan: * Continue home medications (8) GERD (gastroesophageal reflux disease): Qualifiers: Esophagitis presence: without esophagitis Qualified Code(s): K21.9 - Ga stro-esophageal reflux disease without esophagitis Code(s): K21.9 - Gastro-esophageal reflux disease without esophagitis Status: Chronic Assessment and Plan: * Continue home medications (9) Mastoiditis of left side: Code(s): H70.92 - Unspecified mastoiditis, left ear Status: Acute Assessment and Plan: Status post antibiotics Consulted ENT (10) Hypercalcemia: Code(s): E83.52 - Hypercalcemia Status: Acute Assessment and Plan: Possibly due to past medical history of cancer Started on IV fluids PTH normal PTH related peptide pending, 25 hydroxy vitamin-D pending Ordered echocardiogram Subjective Date/time seen: 06/23/24 15:59 Interval history: Patient had drop in hemoglobin. Ordered tagged RBC scan which will be performed tomorrow. Patient has hypercalcemia and started on fluids. Ordered echocardiogram. PTH normal. Pending ionized calcium, 25 hydroxy vitamin-D, and PTHrP. Review of Systems Review of Systems: All systems reviewed & are unremarkable except as noted in HPI and below Exam Const: General: comfortable and no acute distress Other: Pleasant, elderly female patient lying supine in stretcher this time in no acute distress. She is talkative. HENMT: Face/Nose/Sinus: Normal nares present Mouth: Yes moist mucous membranes Other: Head appears atraumatic normocephalic. Eyes: General: appearance normal, both eyes and all related structures Sclera: sclerae normal Pupils: Equal, round and reactive pupils present EOM: EOMs intact bilaterally Neck: Neck: supple and no JVD Chest: Other: Nontender to palpation, no crepitus or edema Resp: Effort & Inspection: normal respiratory effort Auscultation: clear to auscultation bilaterally Cardio: Rate: regular rate Rhythm: regular rhythm Heart sounds: no gallops, no murmurs and no rubs GI: Inspection: non-distended Auscultation: normal bowel sounds Skin: General skin exam: No normal color (Pale), No lesion and No rashes Lesions: no lesions noted Rashes: no rashes noted Wounds: no wounds Neuro: Cranial nerves: Yes Equal, round and reactive pupils present Speech: normal speech Motor exam (neuro): Abnormal motor strength present (Generalized, nonfocal weakness) Sensory Exam: normal sensation Other: Did not test gait Extrem: General: normal to inspection, no edema and no pedal edema Psych: Mental Status: mental status grossly normal Affect: normal affect Objective Data Vital Signs Vital Signs: Vital Signs - 24 hr 06/22/24 16:00 06/22/24 21:32 06/22/24 21:35 Temperature 97.1 F L Pulse Rate 79 60 Respiratory Rate 18 Blood Pressure 148/68 H Pulse Oximetry 93 96 Oxygen Delivery Nasal Cannula Oxygen Flow Rate 4 06/22/24 21:35 06/22/24 22:22 06/23/24 00:00 Temperature Pulse Rate 73 88 75 Respiratory Rate 18 Blood Pressure Pulse Oximetry Oxygen Delivery Oxygen Flow Rate 06/23/24 04:00 06/23/24 05:56 06/23/24 08:30 Temperature 97.2 F L Pulse Rate 84 86 Respiratory Rate 18 Blood Pressure 135/56 L Pulse Oximetry 92 97 Oxygen Delivery Nasal Cannula Oxygen Flow Rate 4 06/23/24 08:30 06/23/24 08:45 06/23/24 08:45 Temperature Pulse Rate 109 H 85 Respiratory Rate 18 Blood Pressure Pulse Oximetry 97 Oxygen Delivery Nasal Cannula Oxygen Flow Rate 4 06/23/24 09:00 06/23/24 12:00 06/23/24 15:12 Temperature 98.4 F Pulse Rate 91 101 H 99 Respiratory Rate 18 20 Blood Pressure 125/82 Pulse Oximetry 96 Oxygen Delivery Oxygen Flow Rate Intake/Output Intake/Output: Intake & Output 06/20/24 06/21/24 06/22/24 06/23/24 23:59 23:59 23:59 23:59 Intake Total 960 480 780 690 Balance 960 480 780 690 Meds/Results Medications: Active Medications Generic Name Dose Route Start Last Admin Trade Name Freq PRN Reason Stop Dose Admin Acetaminophen 650 mg 06/17/24 21:46 Acetaminophen 325 Mg Tablet PO Q4H PRN Mild Pain (1-3) or Fever Acetaminophen 1,000 mg 06/18/24 21:00 06/23/24 08:28 Acetaminophen 500 Mg Tablet PO 1,000 mg Q12HR GIA Administration Hydrocodone Bitart/Acetaminophen 1 tab 06/17/24 21:46 Hydrocodone/Acetaminophen (*Crx) 5-325 Mg Tablet PO Q4H PRN Pain Rated 4-6 Albuterol/Ipratropium 3 ml 06/18/24 20:00 06/23/24 08:43 Ipratropium 0.5 Mg/Albuterol Sulfate 2.5 Mg Ampul.Neb 3 Ml INHALATION 3 ml Q12HRT GIA Administration Alendronate Sodium 10 mg 06/23/24 06:40 06/23/24 06:57 Alendronate Sodium 10 Mg Tablet PO 10 mg DAILY@0630 GIA Administration Anastrozole 1 mg 06/19/24 09:00 06/23/24 08:28 Anastrozole (*Chemo) 1 Mg Tablet PO 1 mg DAILY GIA Administration Ascorbic Acid 500 mg 06/19/24 09:00 06/23/24 08:27 Ascorbic Acid 500 Mg Tablet PO 500 mg DAILY GIA Administration Aspirin 81 mg 06/19/24 09:00 06/23/24 08:27 Aspirin 81 Mg Enteric Tablet PO 81 mg DAILY GIA Administration Cholestyramine Resin 4 gm 06/18/24 15:36 Cholestyramine Light 4 Gm Powd.Pack PO TIDWM PRN IBS Diclofenac Sodium 1 applic 06/18/24 15:36 Diclofenac Sodium 1% 100 Gm Gel (*Bkc) TOPICAL QID PRN pain Duloxetine HCl 30 mg 06/19/24 09:00 06/23/24 08:29 Duloxetine Hcl 30 Mg Capsule.Dr PO 30 mg DAILY GIA Administration Ferrous Sulfate 650 mg 06/19/24 12:00 06/23/24 12:14 Ferrous Sulfate [address] BY MOUTH 650 mg DAILY@1200 GIA Administration Fluticasone/Umeclidinium/Vilanterol 1 puff 06/19/24 08:00 06/23/24 08:45 Fluticasone/Umeclidin/Vilanter 100-62.5-25 Mcg Ellipta INHALATION 1 puff DAILYRT GIA Administration Folic Acid 1 mg 06/19/24 09:00 06/23/24 08:28 Folic Acid 1 Mg Tablet PO 1 mg DAILY GIA Administration Hydrocortisone 1 applic 06/19/24 21:00 06/23/24 08:29 Hydrocortisone 2.5% Cream 30 Gm Tube RECTAL 06/29/24 20:59 1 applic Q12HR GIA Administration Sodium Chloride 1,000 mls @ 100 mls/hr 06/23/24 08:00 06/23/24 08:29 Normal Saline Iv IV CONT 100 mls/hr .Q10H GIA Administration Multivitamins/Minerals 1 tablet 06/18/24 17:00 06/23/24 08:28 Opti-Gen Tab PO 1 tablet BID GIA Administration Ondansetron HCl 4 mg 06/17/24 21:46 Ondansetron Inj 4 Mg/2 Ml Vial IV PUSH Q4H PRN Nausea Pantoprazole Sodium 40 mg 06/22/24 09:00 06/23/24 08:28 Pantoprazole 40 Mg Tablet PO 40 mg QAM GIA Administration Perflutren Lipid Microsphere 0 ml 06/23/24 08:01 Perflutren Lipid Microspheres 1.5 Ml Vial Diluted To 10 Ml Total Volume IV PUSH 06/26/24 08:02 ONCE PRN adequate visualization Protocol Pregabalin 150 mg 06/19/24 09:00 06/23/24 08:28 Pregabalin (*Crx) 75 Mg Capsule PO 150 mg DAILY GIA Administration Quetiapine Fumarate 25 mg 06/18/24 21:00 06/22/24 21:32 Quetiapine Fumarate 25 Mg Tablet PO 25 mg QHS GIA Administration Roflumilast 250 mcg 06/18/24 16:00 06/22/24 17:51 Roflumilast 250 Mcg Tablet PO 250 mcg Q48H GIA Administration Sodium Chloride 10 ml 06/23/24 22:00 Saline Lock Flush IV PUSH Q8HR GIA Sodium Chloride 10 ml 06/23/24 15:51 Saline Lock Flush IV PUSH PRN PRN Flush Sodium Chloride 20 ml 06/23/24 15:51 Saline Lock Flush IV PUSH PRN PRN after blood draws Vitamin B Complex 1 cap 06/19/24 09:00 06/23/24 08:27 Vitamin B Complex Capsule PO 1 cap DAILY GIA Administration Vitamin D 1,000 units 06/19/24 09:00 06/23/24 08:29 Cholecalciferol 1,000 Units Tablet PO 1,000 units DAILY GIA Administration Radiology Results: ITS Impressions Chest X-Ray 06/17/24 17:47 IMPRESSION: Pulmonary vascular congestion, without focal infiltrate or effusion. Head CT 06/17/24 20:58 Impression: No acute intracranial hemorrhage or suspicious mass effect. Redemonstration of a left sided mastoid effusion. Chest CT 06/20/24 14:19 Impression: Multiple pulmonary nodules, as detailed above. There is a new 5 mm right lower lobe nodule and an increased 1 cm left upper lobe nodule. Remaining nodules are unchanged. Mild interval progression of disease is a consideration. Extensive mild amorphous groundglass opacity could reflect pulmonary edema, posttreatment change, or nonspecific bronchitis. Correlate clinically. Stable postoperative change right lung apex. Stable peripherally sclerotic lesion in the L1 vertebral body. Labs Labs: Laboratory Results - last 24 hr 06/23/24 05:23 WBC 5.7 RBC 2.68 L Hgb 7.5 L Hct 24.7 L MCV 92.2 MCH 28.0 MCHC 30.4 L RDW 14.4 Plt Count 261 MPV 9.2 Sodium 138 Potassium 4.1 Chloride 100 Carbon Dioxide 37 H Anion Gap 1 L BUN 21 H Creatinine 1.53 H Estim Creat Clear Calc 27 Estimated GFR 33 L Glucose 103 Calcium 12.1 H* Total Bilirubin 0.2 AST 22 ALT 14 Alkaline Phosphatase 104 Total Protein 6.0 L Albumin 3.2 L PTH Intact < 14.5 L Quality VTE Prophylaxis VTE prophylaxis: mechanical ordered Hospitalist [facility] Advance Care Plan I have confirmed that the patient's Advanced Care Plan is present, code status is documented, or surrogate decision maker is listed in patient medical record.: Yes Medication Reconciliation I have utilized all available resources to obtain, update and review the patients current medications (includes all prescriptions, OTC, herbals, cannabis, and nutritional supplements).: Yes
--- NOTE | 2024-06-23 16:01 | PCPTNOTE ---
Attempted to see patient for PT, however patient refused. Patient reported she had a bunch of company earlier and was too tired to work with PT.
[2024-06-23] MEDS: QUEtiapine FUMARATE 25 MG TABLET PO (20:24)
[2024-06-23] MEDS: SALINE LOCK FLUSH 10 ML IV PUSH (20:28)
[2024-06-24] VITALS (15 sets, daily range): BP systolic 109–138; BP diastolic 56–80; PULSE 73–91; RESP 16–20; TEMP 36.1–37.2; O2SAT 85–100
--- NOTE | 2024-06-24 | ECHO_ITS ---
Patient Info Name: May Deatherage Age: 78 years : 1945 Gender: Female Ht: 64 in Wt: 158 lbs BSA: 1.82 m2 HR: 102 bpm BP: 119 / 83 mmHg Technical Quality: Good Exam Date: 06/24/2024 9:33 AM Exam Location: Echo Lab Patient Status: Inpatient Admit Date: 06/18/2024 Staff Ordering Physician: Denis Cruz MD [employer] Operator: Starr Muniz RDCS Attending Provider: Shantel Goldberg MD Exam Type: CA echo doppler color flow Study Info Indications - CHF Complete two-dimensional, color flow and Doppler transthoracic echocardiogram is performed. Summary 1. Complete two-dimensional, color flow and Doppler transthoracic echocardiogram is performed. 2. The left ventricle is normal in size with hyperdynamic systolic function. There is mild concentric left ventricular hypertrophy. The left ventricular ejection fraction is visually estimated to be >70%. 3. The right ventricle is normal in size and systolic function. 4. The aortic valve is not well visualized. Doppler gradients across the valve suggests mild aortic stenosis. 5. Normal inferior vena cava with >50% collapse upon inspiration consistent with normal right atrial pressure, 3 mmHg. Left Ventricle The left ventricle is normal in size with hyperdynamic systolic function. There is mild concentric left ventricular hypertrophy. The left ventricular ejection fraction is visually estimated to be >70%. Right Ventricle The right ventricle is normal in size and systolic function. Left Atria The left atrium is mildly dilated. Right Atria The right atrium is normal size. Atrial Septum The atrial septum is not well visualized. Aortic Valve The aortic valve is not well visualized. Doppler gradients across the valve suggests mild aortic stenosis. Pulmonic Valve The pulmonic valve is not well visualized. There is no color Doppler evidence of pulmonic valve regurgitation. Mitral Valve The mitral valve leaflets are opening well. There is trace mitral regurgitation. Tricuspid Valve The tricuspid valve is not well visualized. There is trace tricuspid regurgitation. Pericardium/Pleural The pericardium is not fully visualized in this study. Inferior Vena Cava Normal inferior vena cava with >50% collapse upon inspiration consistent with normal right atrial pressure, 3 mmHg. Normal inferior vena cava with >50% collapse upon inspiration consistent with normal right atrial pressure, 3 mmHg. Aorta The aortic root at the level of the sinus of Valsalva measures 2.9 cm in diameter. Left Ventricular Outflow Tract Name Value Normal LVOT 2D LVOT Diameter 1.8 cm LVOT Doppler LVOT Peak Gradient 14 mmHg LVOT Mean Gradient 8 mmHg LVOT VTI 30 cm LVOT VTI/AV VTI Ratio 0.7 LVOT Stroke Volume 72 ml LVOT CO 19.9 l/min LVOT CI 10.9 l/min/m2 Pulmonic Valve Name Value Normal PV Doppler PV Peak Gradient 8 mmHg Mitral Valve Name Value Normal MV Doppler MV Decel [place] 727 cm/s2 MV PHT 45 ms MV Area (PHT) 4.8 cm2 4.0-5.0 MV Diastolic Function MV E Peak Velocity 114 cm/s MV A Peak Velocity 128 cm/s MV E/A 0.9 MV Decel Time 157 ms MV Annular TDI MV E/e' (Septal) 18.4 <=8.0 MV E/e' (Lateral) 13.5 <=8.0 MV E/e' (Average) 15.9 Tricuspid Valve Name Value Normal TV Regurgitation Doppler TR Peak Velocity 275 cm/s TR Peak Gradient 30 mmHg Estimated PAP/RSVP RA Pressure 3 mmHg <=5 PA Systolic Pressure 33 mmHg <36 RV Systolic Pressure 33 mmHg <36 Aorta Name Value Normal Ascending Aorta Ao Root Diameter (MM) 3.4 cm Ao Root Diam Index (MM) 1.9 cm/m2 Aortic Valve Name Value Normal AV Doppler AV Peak Velocity 271 cm/s AV Peak Gradient 29 mmHg AV Mean Gradient 17 mmHg AV VTI 41 cm AV Area (Cont Eq VTI) 1.8 cm2 >=3.0 AV Area (Cont Eq Allen) 1.6 cm2 AV Regurgitation 2D LVOT Area 2.4 cm2 Ventricles Name Value Normal LV Dimensions 2D/MM IVS Diastolic Thickness (2D) 1.3 cm 0.6-1.0 LVID Diastole (2D) 4.3 cm 3.8-5.2 LVIW Diastolic Thickness (2D) 1.2 cm 0.6-0.9 LVID Systole (2D) 3.0 cm 2.2-3.5 LVOT Diameter 1.8 cm LV Mass (2D Cubed) 188.64 g 67.00-162.00 LV Mass Index (2D Cubed) 104 g/m2 43-95 Relative Wall Thickness (2D) 0.55 LV Fractional Shortening/Ejection Fraction 2D/MM LV Fractional Shortening (2D) 29 % 27-45 LV EF (2D Teicholz) 57 % 54-74 LV Diastolic Volume (4C MOD) 77 ml LV EF (4C MOD) 81 % LV Diastolic Volume (2C MOD) 68 ml LV EF (2C MOD) 71 % LV Diastolic Volume (BP MOD) 74 ml 46-106 LV Diastolic Volume Index (BP MOD) 41 ml/m2 29-61 LV Systolic Volume (BP MOD) 18 ml 14-42 LV Systolic Volume Index (BP MOD) 10 ml/m2 8-24 LV EF (BP MOD) 76 % 54-74 LV Diastolic Length (4C) 6.9 cm LV Systolic Length (4C) 5.7 cm LV Stroke Volume (4C MOD) 62 ml RV Dimensions 2D/MM RVID Diastole (2D) 2.8 cm 2.5-3.5 Atria Name Value Normal LA Dimensions LA Dimension (MM) 4.2 cm 2.7-3.8 LA Volume (4C A-L) 59 ml LA Volume (BP A-L) 68 ml RA Dimensions RA Area (4C) 14.7 cm2 <=18.0 Report Signatures
[2024-06-24] MEDS: SODIUM CHLORIDE 0.9% IV 1,000 ML 100 ML IV CONT ×2 (00:37→10:34)
[2024-06-24] MEDS: ALENDRONATE SODIUM 10 MG TABLET PO (05:53)
[2024-06-24] MEDS: SALINE LOCK FLUSH 10 ML IV PUSH ×2 (05:54→20:31)
[2024-06-24] MEDS: ASCORBIC ACID 500 MG TABLET PO (09:00)
[2024-06-24] MEDS: CHOLECALCIFEROL 1,000 UNITS TABLET 1000 UNITS PO (09:00)
[2024-06-24] MEDS: ASPIRIN 81 MG ENTERIC TABLET PO (09:00)
[2024-06-24] MEDS: ACETAMINOPHEN 500 MG TABLET 1000 MG PO ×2 (09:00→20:30)
[2024-06-24] MEDS: DULoxetine HCL 30 MG CAPSULE.DR PO (09:00)
[2024-06-24] MEDS: PANTOPRAZOLE 40 MG TABLET PO (09:00)
[2024-06-24] MEDS: ANASTROZOLE (*CHEMO) 1 MG TABLET PO (09:00)
[2024-06-24] MEDS: VITAMIN B COMPLEX CAPSULE 1 CAP PO (09:00)
[2024-06-24] MEDS: PREGABALIN (*CRX) 75 MG CAPSULE 150 MG PO (09:01)
[2024-06-24] MEDS: FOLIC ACID 1 MG TABLET PO (09:01)
[2024-06-24] MEDS: OPTI-GEN TAB 1 TABLET PO ×2 (09:01→17:05)
[2024-06-24] MEDS: HYDROCORTISONE 2.5% CREAM 30 GM TUBE 1 APPLIC RECTAL ×2 (09:01→20:30)
[2024-06-24] MEDS: IPRATROPIUM 0.5 MG/ALBUTEROL SULFATE 2.5 MG AMPUL.NEB 3 ML INHALATION ×2 (09:13→20:01)
[2024-06-24] MEDS: FLUTICASONE/UMECLIDIN/VILANTER 100-62.5-25 MCG ELLIPTA 1 PUFF INHALATION (09:20)
--- NOTE | 2024-06-24 12:32 | P.PNIM_ITS ---
Progress Note: A&P Assessment and Plan (1) Anemia: Code(s): D64.9 - Anemia, unspecified Status: Acute Assessment and Plan: * Acute on chronic hb 7.5, Ferritin is 19, B12/Folate wnl s/p 2 units of pRBC now on 400/1000 EGD showed Gastritis and Duodenal AVM, Colonoscopy diverticulosis without perforation GI following (2) Lung cancer: Code(s): C34.90 - Malignant neoplasm of unspecified part of unspecified bronchus or lung Status: Chronic Assessment and Plan: * Follows with Dr. Michaud (3) H/O malignant neoplasm of breast: Code(s): Z85.3 - Personal history of malignant neoplasm of breast Status: Chronic Assessment and Plan: * Continue anastrozole (4) COPD (chronic obstructive pulmonary disease): Code(s): J44.9 - Chronic obstructive pulmonary disease, unspecified Status: Chronic Assessment and Plan: * Chronic and not acutely in exacerbation. * Suspect patient's dyspnea was from her acute anemia * Continue supplemental oxygen the patient wears at home * Continue home medications once they have been confirmed * Monitor vital signs (5) Dependence on continuous supplemental oxygen: Code(s): Z99.81 - Dependence on supplemental oxygen Status: Chronic Assessment and Plan: * See 4. (6) Hypertension: Code(s): I10 - Essential (primary) hypertension Status: Chronic Assessment and Plan: * Monitor and trend labs and vital signs * Continue home medication (7) Anxiety and depression: Code(s): F41.9 - Anxiety disorder, unspecified; F32.9 - Major depressive disorder, single episode, unspecified Status: Chronic Assessment and Plan: * Continue home medications (8) GERD (gastroesophageal reflux disease): Qualifiers: Esophagitis presence: without esophagitis Qualified Code(s): K21.9 - Gastro-esophageal reflux disease without esophagitis Code(s): K21.9 - Gastro-esophageal reflux disease without esophagitis Status: Chronic Assessment and Plan: * Continue home medications (9) Mastoiditis of left side: Code(s): H70.92 - Unspecified mastoiditis, left ear Status: Acute Assessment and Plan: Status post antibiotics Consulted ENT (10) Hypercalcemia: Code(s): E83.52 - Hypercalcemia Status: Acute Assessment and Plan: Possibly due to past medical history of cancer Started on IV fluids PTH normal PTH related peptide pending, 25 hydroxy vitamin-D pending ECHO pending Plan Hypercalcemia of malignancy Ca 12.3 on IVF give 79 units of Calcictonin i today awaiting oncology recommendation DVt prophylaxis on SCDs , due to GI bleed Subjective Date/time seen: 06/24/24 12:32 Interval history: Comfortable at bedside Ca 12.1 today likely from malignancy, one dose of Calcitonin Review of Systems Review of Systems: All systems reviewed & are unremarkable except as noted in HPI and below Exam Const: General: comfortable and no acute distress Other: Pleasant, elderly female patient lying supine in stretcher this time in no acute distress. She is talkative. HENMT: Face/Nose/Sinus: Normal nares present Mouth: Yes moist mucous membranes Other: Head appears atraumatic normocephalic. Eyes: General: appearance normal, both eyes and all related structures Sclera: sclerae normal Pupils: Equal, round and reactive pupils present EOM: EOMs intact bilaterally Neck: Neck: supple and no JVD Chest: Other: Nontender to palpation, no crepitus or edema Resp: Effort & Inspection: normal respiratory effort Auscultation: clear to auscultation bilaterally Cardio: Rate: regular rate Rhythm: regular rhythm Heart sounds: no gallops, no murmurs and no rubs GI: Inspection: non-distended Auscultation: normal bowel sounds Skin: General skin exam: No normal color (Pale), No lesion and No rashes Lesions: no lesions noted Rashes: no rashes noted Wounds: no wounds Neuro: Cranial nerves: Yes Equal, round and reactive pupils present Speech: normal speech Motor exam (neuro): Abnormal motor strength present (Generaliz ed, nonfocal weakness) Sensory Exam: normal sensation Other: Did not test gait Extrem: General: normal to inspection, no edema and no pedal edema Psych: Mental Status: mental status grossly normal Affect: normal affect Objective Data Vital Signs Vital Signs: Vital Signs - 24 hr 06/23/24 15:12 06/23/24 16:00 06/23/24 20:00 Temperature 98.4 F Pulse Rate 99 96 Respiratory Rate 20 Blood Pressure 125/82 Pulse Oximetry 96 94 Oxygen Delivery Nasal Cannula Oxygen Flow Rate 4 Fraction of Inspired Oxygen 06/23/24 20:00 06/23/24 20:03 06/23/24 20:06 Temperature Pulse Rate 94 94 Respiratory Rate 18 Blood Pressure Pulse Oximetry 94 Oxygen Delivery Nasal Cannula Oxygen Flow Rate 3.5 Fraction of Inspired Oxygen 06/23/24 20:10 06/23/24 22:52 06/24/24 00:00 Temperature 97.7 F Pulse Rate 92 100 86 Respiratory Rate 18 16 Blood Pressure 119/83 Pulse Oximetry 93 Oxygen Delivery Oxygen Flow Rate Fraction of Inspired Oxygen 06/24/24 04:00 06/24/24 06:00 06/24/24 09:00 Temperature 98.9 F Pulse Rate 73 82 Respiratory Rate 16 Blood Pressure 137/56 L Pulse Oximetry 93 100 Oxygen Delivery Nasal Cannula Oxygen Flow Rate 5 Fraction of Inspired Oxygen 06/24/24 09:13 06/24/24 09:13 06/24/24 09:20 Temperature Pulse Rate 91 Respiratory Rate 16 Blood Pressure Pulse Oximetry 85 L 100 Oxygen Delivery Nasal Cannula Nasal Cannula Oxygen Flow Rate 4 5 Fraction of Inspired Oxygen 36 40 06/24/24 09:20 Temperature Pulse Rate 90 Respiratory Rate 16 Blood Pressure Pulse Oximetry Oxygen Delivery Oxygen Flow Rate Fraction of Inspired Oxygen Intake/Output Intake/Output: Intake & Output 06/21/24 06/22/24 06/23/24 06/24/24 23:59 23:59 23:59 23:59 Intake Total 767 731 5299 1535 Balance 724 058 3704 1535 Meds/Results Medications: Active Medications Generic Name Dose Route Start Last Admin Trade Name Freq PRN Reason Stop Dose Admin Acetaminophen 650 mg 06/17/24 21:46 Acetaminophen 325 Mg Tablet PO Q4H PRN Mild Pain (1-3) or Fever Acetaminophen 1,000 mg 06/18/24 21:00 06/24/24 09:00 Acetaminophen 500 Mg Tablet PO 1,000 mg Q12HR GIA Administration Hydrocodone Bitart/Acetaminophen 1 tab 06/17/24 21:46 Hydrocodone/Acetaminophen (*Crx) 5-325 Mg Tablet PO Q4H PRN Pain Rated 4-6 Albuterol/Ipratropium 3 ml 06/18/24 20:00 06/24/24 09:13 Ipratropium 0.5 Mg/Albuterol Sulfate 2.5 Mg Ampul.Neb 3 Ml INHALATION 3 ml Q12HRT GIA Administration Alendronate Sodium 10 mg 06/23/24 06:40 06/24/24 05:53 Alendronate Sodium 10 Mg Tablet PO 10 mg DAILY@0630 GIA Administration Anastrozole 1 mg 06/19/24 09:00 06/24/24 09:00 Anastrozole (*Chemo) 1 Mg Tablet PO 1 mg DAILY GIA Administration Ascorbic Acid 500 mg 06/19/24 09:00 06/24/24 09:00 Ascorbic Acid 500 Mg Tablet PO 500 mg DAILY GIA Administration Aspirin 81 mg 06/19/24 09:00 06/24/24 09:00 Aspirin 81 Mg Enteric Tablet PO 81 mg DAILY GIA Administration Cholestyramine Resin 4 gm 06/18/24 15:36 Cholestyramine Light 4 Gm Powd.Pack PO TIDWM PRN IBS Diclofenac Sodium 1 applic 06/18/24 15:36 Diclofenac Sodium 1% 100 Gm Gel (*Bkc) TOPICAL QID PRN pain Duloxetine HCl 30 mg 06/19/24 09:00 06/24/24 09:00 Duloxetine Hcl 30 Mg Capsule.Dr PO 30 mg DAILY GIA Administration Ferrous Sulfate 650 mg 06/19/24 12:00 06/23/24 12:14 Ferrous Sulfate [address] BY MOUTH 650 mg DAILY@1200 GIA Administration Fluticasone/Umeclidinium/Vilanterol 1 puff 06/19/24 08:00 06/24/24 09:20 Fluticasone/Umeclidin/Vilanter 100-62.5-25 Mcg Ellipta INHALATION 1 puff DAILYRT GIA Administration Folic Acid 1 mg 06/19/24 09:00 06/24/24 09:01 Folic Acid 1 Mg Tablet PO 1 mg DAILY GIA Administration Hydrocortisone 1 applic 06/19/24 21:00 06/24/24 09:01 Hydrocortisone 2.5% Cream 30 Gm Tube RECTAL 06/29/24 20:59 1 applic Q12HR GIA Administration Sodium Chloride 1,000 mls @ 100 mls/hr 06/23/24 08:00 06/24/24 10:34 Normal Saline Iv IV CONT 100 mls/hr .Q10H GIA Administration Multivitamins/Minerals 1 tablet 06/18/24 17:00 06/24/24 09:01 Opti-Gen Tab PO 1 tablet BID GIA Administration Ondansetron HCl 4 mg 06/17/24 21:46 Ondansetron Inj 4 Mg/2 Ml Vial IV PUSH Q4H PRN Nausea Pantoprazole Sodium 40 mg 06/22/24 09:00 06/24/24 09:00 Pantoprazole 40 Mg Tablet PO 40 mg QAM GIA Administration Perflutren Lipid Microsphere 0 ml 06/23/24 08:01 Perflutren Lipid Microspheres 1.5 Ml Vial Diluted To 10 Ml Total Volume IV PUSH 06/26/24 08:02 ONCE PRN adequate visualization Protocol Pregabalin 150 mg 06/19/24 09:00 06/24/24 09:01 Pregabalin (*Crx) 75 Mg Capsule PO 150 mg DAILY GIA Administration Quetiapine Fumarate 25 mg 06/18/24 21:00 06/23/24 20:24 Quetiapine Fumarate 25 Mg Tablet PO 25 mg QHS GIA Administration Roflumilast 250 mcg 06/18/24 16:00 06/22/24 17:51 Roflumilast 250 Mcg Tablet PO 250 mcg Q48H GIA Administration Sodium Chloride 10 ml 06/23/24 22:00 06/24/24 05:54 Saline Lock Flush IV PUSH 10 ml Q8HR GIA Administration Sodium Chloride 10 ml 06/23/24 15:51 Saline Lock Flush IV PUSH PRN PRN Flush Sodium Chloride 20 ml 06/23/24 15:51 Saline Lock Flush IV PUSH PRN PRN after blood draws Vitamin B Complex 1 cap 06/19/24 09:00 06/24/24 09:00 Vitamin B Complex Capsule PO 1 cap DAILY GIA Administration Vitamin D 1,000 units 06/19/24 09:00 06/24/24 09:00 Cholecalciferol 1,000 Units Tablet PO 1,000 units DAILY GIA Administration Radiology Results: ITS Impressions Chest X-Ray 06/17/24 17:47 IMPRESSION: Pulmonary vascular congestion, without focal infiltrate or effusion. Head CT 06/17/24 20:58 Impression: No acute intracranial hemorrhage or suspicious mass effect. Redemonstration of a left sided mastoid effusion. Chest CT 06/20/24 14:19 Impression: Multiple pulmonary nodules, as detailed above. There is a new 5 mm right lower lobe nodule and an increased 1 cm left upper lobe nodule. Remaining nodules are unchanged. Mild interval progression of disease is a consideration. Extensive mild amorphous groundglass opacity could reflect pulmonary edema, posttreatment change, or nonspecific bronchitis. Correlate clinically. Stable postoperative change right lung apex. Stable peripherally sclerotic lesion in the L1 vertebral body. Quality VTE Prophylaxis VTE prophylaxis: mechanical ordered
[2024-06-24] MEDS: FERROUS SULFATE 325 MG TABLET DR 650 MG BY MOUTH (12:41)
[2024-06-24] MEDS: IRON SUCROSE COMPLEX 400 MG in SODIUM CHLORIDE 0.9% IV 250 ML 108 MG IVPB (13:10)
[2024-06-24] MEDS: CALCITONIN SALMON INJ 400 UNITS/2 ML VIAL 70 UNITS SUB-Q (13:11)
[2024-06-24] MEDS: ROFLUMILAST 250 MCG TABLET PO (17:05)
[2024-06-24] MEDS: QUEtiapine FUMARATE 25 MG TABLET PO (20:30)
[2024-06-25] VITALS (17 sets, daily range): BP systolic 127–153; BP diastolic 43–70; PULSE 82–117; RESP 16–22; TEMP 36.1–36.5; O2SAT 90–100; BMI 27.1
[2024-06-25] MEDS: SODIUM CHLORIDE 0.9% IV 1,000 ML 100 ML IV CONT ×2 (00:33→14:20)
[2024-06-25] MEDS: SALINE LOCK FLUSH 10 ML IV PUSH ×3 (05:45→21:34)
[2024-06-25] MEDS: ALENDRONATE SODIUM 10 MG TABLET PO (05:45)
[2024-06-25 06:01] LABS: Basophils Percent Auto 0.4 % (0.2-1.2); Eosinophils Absolute Auto 0.5 K/mm3 (0-0.3); Eosinophils Percent Auto 8.4 % (0-4.4); Immature Granulocyte Absolute 0.04 K/mm3 (0.00-0.031); Immature Granulocyte Percent A 0.7 % (0-0.5); Lymphocytes Absolute Auto 0.61 K/mm3 (0.9-3.2); Lymphocytes Percent Auto 11.4 % (18.3-44.2); Mean Corpuscular HGB Conc 29.1 g/dl (32-36); Mean Corpuscular Volume 96.3 fl (80-100); Mean Platelet Volume 9.5 fl (7.4-10.4); Monocytes Absolute Auto 0.5 K/mm3 (0.1-0.6); Monocytes Percent Auto 10.1 % (2.6-8.5); Neutrophils Absolute Auto 3.7 K/mm3 (1.3-6.7); Platelet Count Result 269 k/mm3 (150-375); Red Blood Count 2.14 M/mm3 (4.2-5.4); Red Cell Distribution Width 14.3 % (11.5-14.5); White Blood Count 5.4 K/mm3 (4.5-10.0)
[2024-06-25 06:20] LABS: Alanine Aminotransferase 13 U/L (6-35); Albumin Level 2.7 g/dL (3.5-5.1); Alkaline Phosphatase 83 U/L (38-126); Anion Gap 1 mmol/L (4-12); Aspartate Amino Transferase 23 U/L (14-36); Bilirubin,Total 0.1 mg/dL (0.2-1.3); Blood Urea Nitrogen 21 mg/dL (7-17); Calcium 10.9 mg/dL (8.4-10.2); Carbon Dioxide 35 mmol/L (22-30); Chloride 103 mmol/L (98-107); Estimated CRCL calculation 38 ml/min; Estimated Glomerular Filt Rate 49; Glucose 89 mg/dL (65-110); Magnesium 1.8 mg/dL (1.6-2.3); Sodium 139 mmol/L (137-145)
[2024-06-25] MEDS: SALINE 0.65% NAS SOLN 44 ML BTL 1 SPRAY NASAL ×2 (06:31→21:15)
[2024-06-25 06:37] LABS: Hematocrit 20.6 % (37.0-47.0)
[2024-06-25 06:42] LABS: Platelet Estimate Adequate (Adequate)
[2024-06-25 06:44] LABS: Hypochromasia 2+; Schistocytes None Seen
[2024-06-25] MEDS: OPTI-GEN TAB 1 TABLET PO ×2 (09:16→17:41)
[2024-06-25] MEDS: ASCORBIC ACID 500 MG TABLET PO (09:16)
[2024-06-25] MEDS: ASPIRIN 81 MG ENTERIC TABLET PO (09:16)
[2024-06-25] MEDS: VITAMIN B COMPLEX CAPSULE 1 CAP PO (09:16)
[2024-06-25] MEDS: PANTOPRAZOLE 40 MG TABLET PO (09:16)
[2024-06-25] MEDS: FOLIC ACID 1 MG TABLET PO (09:16)
[2024-06-25] MEDS: PREGABALIN (*CRX) 75 MG CAPSULE 150 MG PO (09:16)
[2024-06-25] MEDS: CHOLECALCIFEROL 1,000 UNITS TABLET 1000 UNITS PO (09:16)
[2024-06-25] MEDS: ACETAMINOPHEN 500 MG TABLET 1000 MG PO ×2 (09:17→21:15)
[2024-06-25] MEDS: ANASTROZOLE (*CHEMO) 1 MG TABLET PO (09:17)
[2024-06-25] MEDS: DULoxetine HCL 30 MG CAPSULE.DR PO (09:17)
[2024-06-25] MEDS: HYDROCORTISONE 2.5% CREAM 30 GM TUBE 1 APPLIC RECTAL ×2 (09:17→21:15)
[2024-06-25] MEDS: IPRATROPIUM 0.5 MG/ALBUTEROL SULFATE 2.5 MG AMPUL.NEB 3 ML INHALATION ×2 (09:53→21:05)
[2024-06-25] MEDS: FLUTICASONE/UMECLIDIN/VILANTER 100-62.5-25 MCG ELLIPTA 1 PUFF INHALATION (09:54)
[2024-06-25] MEDS: SODIUM CHLORIDE 0.9% IV 250 ML 30 ML IV CONT (10:32)
[2024-06-25] MEDS: IRON SUCROSE COMPLEX 400 MG in SODIUM CHLORIDE 0.9% IV 250 ML 108 MG IVPB (14:20)
--- NOTE | 2024-06-25 15:11 | PM.IMPN ---
Progress Note: A&P Assessment and Plan (1) Anemia: Code(s): D64.9 - Anemia, unspecified Status: Acute Assessment and Plan: Acute on chronic hb 6.0, transfuse oen unit PRBC Ferritin is 19, B12/Folate wnl s/p 2 units of pRBC now on 800/1000 EGD showed Gastritis and Duodenal AVM, Colonoscopy diverticulosis without perforation GI following (2) Lung cancer: Code(s): C34.90 - Malignant neoplasm of unspecified part of unspecified bronchus or lung Status: Chronic Assessment and Plan: Follows with Dr. Michaud (3) H/O malignant neoplasm of breast: Code(s): Z85.3 - Personal history of malignant neoplasm of breast Status: Chronic Assessment and Plan: Continue anastrozole (4) COPD (chronic obstructive pulmonary disease): Code(s): J44.9 - Chronic obstructive pulmonary disease, unspecified Status: Chronic Assessment and Plan: Chronic and not acutely in exacerbation. Suspect patient's dyspnea was from her acute anemia Continue supplemental oxygen the patient wears at home Continue home medications once they have been confirmed Monitor vital signs (5) Dependence on continuous supplemental oxygen: Code(s): Z99.81 - Dependence on supplemental oxygen Status: Chronic Assessment and Plan: See 4. (6) Hypertension: Code(s): I10 - Essential (primary) hypertension Status: Chronic Assessment and Plan: Monitor and trend labs and vital signs Continue home medication (7) Anxiety and depression: Code(s): F41.9 - Anxiety disorder, unspecified; F32.9 - Major depressive disorder, single episode, unspecified Status: Chronic Assessment and Plan: Continue home medications (8) GERD (gastroesophageal reflux disease): Qualifiers: Esophagitis presence: without esophagitis Qualified Code(s): K21.9 - Gastro-esophageal reflux disease without esophagitis Code(s): K21.9 - Gastro-esophageal reflux disease without esophagitis Status: Chronic Assessment and Plan: Continue home medications (9) Mastoiditis of left side: Code(s): H70.92 - Unspecified mastoiditis, left ear Status: Acute Assessment and Plan: Status post antibiotics Consulted ENT (10) Hypercalcemia: Code(s): E83.52 - Hypercalcemia Status: Acute Assessment and Plan: Possibly due to past medical history of cancer Started on IV fluids PTH normal PTH related peptide pending, 25 hydroxy vitamin-D pending ECHO pending Plan Hypercalcemia of malignancy Ca 10.9 on IVF s/p 70 units of Calcitonin awaiting oncology recommendation DVt prophylaxis on SCDs , due to GI bleed Subjective Date/time seen: 06/25/24 15:11 Interval history: Comfortable at bedside Hb 6.0 this morning will receive one unit pRBC ECHO showed ef >70% Review of Systems Review of Systems: All systems reviewed & are unremarkable except as noted in HPI and below Exam Const: General: comfortable and no acute distress Other: Pleasant, elderly female patient lying supine in stretcher this time in no acute distress. She is talkative. HENMT: Face/Nose/Sinus: Normal nares present Mouth: Yes moist mucous membranes Other: Head appears atraumatic normocephalic. Eyes: General: appearance normal, both eyes and all related structures Sclera: sclerae normal Pupils: Equal, round and reactive pupils present EOM: EOMs intact bilaterally Neck: Neck: supple and no JVD Chest: Other: Nontender to palpation, no crepitus or edema Resp: Effort & Inspection: normal respiratory effort Auscultation: clear to auscultation bilaterally Cardio: Rate: regular rate Rhythm: regular rhythm Heart sounds: no gallops, no murmurs and no rubs GI: Inspection: non-distended Auscultation: normal bowel sounds Skin: General skin exam: No normal color (Pale), No lesion and No rashes Lesions: no lesions noted Rashes: no rashes noted Wounds: no wounds Neuro: Cranial nerves: Yes Equal, round and reactive pupils present Speech: normal speech Motor exam (neuro): Abnormal motor strength present (Generalized, nonfocal weakness) Sensory Exam: normal sensation Other: Did not test gait Extrem: General: normal to inspection, no edema and no pedal edema Psych: Mental Status: mental status grossly normal Affect: normal affect Objective Data Vital Signs Vital Signs: Vital Signs - 24 hr 06/24/24 16:00 06/24/24 20:00 06/24/24 20:00 Temperature Pulse Rate 86 88 Respiratory Rate Blood Pressure Pulse Oximetry 95 Oxygen Delivery Nasal Cannula Oxygen Flow Rate 4 Fraction of Inspired Oxygen 06/24/24 20:01 06/24/24 20:03 06/24/24 20:12 Temperature Pulse Rate 86 86 91 Respiratory Rate 16 20 20 Blood Pressure Pulse Oximetry 90 Oxygen Delivery Nasal Cannula Oxygen Flow Rate 5 Fraction of Inspired Oxygen 40 06/24/24 21:25 06/25/24 00:00 06/25/24 04:00 Temperature 97.0 F L Pulse Rate 88 82 86 Respiratory Rate 18 Blood Pressure 138/80 Pulse Oximetry 98 Oxygen Delivery Oxygen Flow Rate Fraction of Inspired Oxygen 06/25/24 05:51 06/25/24 06:00 06/25/24 08:00 Temperature 97.7 F Pulse Rate 96 96 Respiratory Rate 22 H 22 H Blood Pressure 131/43 L Pulse Oximetry 90 90 90 Oxygen Delivery Nasal Cannula Nasal Cannula Oxygen Flow Rate 6 6 Fraction of Inspired Oxygen 06/25/24 09:54 06/25/24 09:54 06/25/24 10:06 Temperature Pulse Rate 98 85 Respiratory Rate 20 20 Blood Pressure Pulse Oximetry 91 Oxygen Delivery Nasal Cannula Oxygen Flow Rate 6 Fraction of Inspired Oxygen 06/25/24 10:35 06/25/24 11:00 06/25/24 12:00 Temperature 97 F L 97.5 F L 97.1 F L Pulse Rate 102 H 97 96 Respiratory Rate 18 18 18 Blood Pressure 148/68 H 128/69 140/50 L Pulse Oximetry 96 100 98 Oxygen Delivery Oxygen Flow Rate Fraction of Inspired Oxygen 06/25/24 13:00 06/25/24 14:00 Temperature 97.0 F L 97.4 F L Pulse Rate 95 87 Respiratory Rate 18 16 Blood Pressure 127/55 L 153/70 H Pulse Oximetry 99 97 Oxygen Delivery Oxygen Flow Rate Fraction of Inspired Oxygen Intake/Output Intake/Output: Intake & Output 06/22/24 06/23/24 06/24/24 06/25/24 23:59 23:59 23:59 23:59 Intake Total 780 2180 3035 2430 Balance 780 2180 3035 2430 Meds/Results Medications: Active Medications Generic Name Dose Route Start Last Admin Trade Name Freq PRN Reason Stop Dose Admin Acetaminophen 650 mg 06/17/24 21:46 Acetaminophen 325 Mg Tablet PO Q4H PRN Mild Pain (1-3) or Fever Acetaminophen 1,000 mg 06/18/24 21:00 06/25/24 09:17 Acetaminophen 500 Mg Tablet PO 1,000 mg Q12HR GIA Administration Hydrocodone Bitart/Acetaminophen 1 tab 06/17/24 21:46 Hydrocodone/Acetaminophen (*Crx) 5-325 Mg Tablet PO Q4H PRN Pain Rated 4-6 Albuterol/Ipratropium 3 ml 06/18/24 20:00 06/25/24 09:53 Ipratropium 0.5 Mg/Albuterol Sulfate 2.5 Mg Ampul.Neb 3 Ml INHALATION 3 ml Q12HRT GIA Administration Alendronate Sodium 10 mg 06/23/24 06:40 06/25/24 05:45 Alendronate Sodium 10 Mg Tablet PO 10 mg DAILY@0630 GIA Administration Anastrozole 1 mg 06/19/24 09:00 06/25/24 09:17 Anastrozole (*Chemo) 1 Mg Tablet PO 1 mg DAILY GIA Administration Ascorbic Acid 500 mg 06/19/24 09:00 06/25/24 09:16 Ascorbic Acid 500 Mg Tablet PO 500 mg DAILY GIA Administration Aspirin 81 mg 06/19/24 09:00 06/25/24 09:16 Aspirin 81 Mg Enteric Tablet PO 81 mg DAILY GIA Administration Cholestyramine Resin 4 gm 06/18/24 15:36 Cholestyramine Light 4 Gm Powd.Pack PO TIDWM PRN IBS Diclofenac Sodium 1 applic 06/18/24 15:36 Diclofenac Sodium 1% 100 Gm Gel (*Bkc) TOPICAL QID PRN pain Duloxetine HCl 30 mg 06/19/24 09:00 06/25/24 09:17 Duloxetine Hcl 30 Mg Capsule.Dr PO 30 mg DAILY GIA Administration Ferrous Sulfate 650 mg 06/19/24 12:00 06/25/24 12:34 Ferrous Sulfate [address] BY MOUTH Not Given DAILY@1200 [facility] Fluticasone/Umeclidinium/Vilanterol 1 puff 06/19/24 08:00 06/25/24 09:54 Fluticasone/Umeclidin/Vilanter 100-62.5-25 Mcg Ellipta INHALATION 1 puff DAILYRT GIA Administration Folic Acid 1 mg 06/19/24 09:00 06/25/24 09:16 Folic Acid 1 Mg Tablet PO 1 mg DAILY GIA Administration Hydrocortisone 1 applic 06/19/24 21:00 06/25/24 09:17 Hydrocortisone 2.5% Cream 30 Gm Tube RECTAL 06/29/24 20:59 1 applic Q12HR GIA Administration Sodium Chloride 1,000 mls @ 100 mls/hr 06/23/24 08:00 06/25/24 14:20 Normal Saline Iv IV CONT 100 mls/hr .Q10H GIA Administration Multivitamins/Minerals 1 tablet 06/18/24 17:00 06/25/24 09:16 Opti-Gen Tab PO 1 tablet BID GIA Administration Ondansetron HCl 4 mg 06/17/24 21:46 Ondansetron Inj 4 Mg/2 Ml Vial IV PUSH Q4H PRN Nausea Pantoprazole Sodium 40 mg 06/22/24 09:00 06/25/24 09:16 Pantoprazole 40 Mg Tablet PO 40 mg QAM GIA Administration Perflutren Lipid Microsphere 0 ml 06/23/24 08:01 Perflutren Lipid Microspheres 1.5 Ml Vial Diluted To 10 Ml Total Volume IV PUSH 06/26/24 08:02 ONCE PRN adequate visualization Protocol Pregabalin 150 mg 06/19/24 09:00 06/25/24 09:16 Pregabalin (*Crx) 75 Mg Capsule PO 150 mg DAILY GIA Administration Quetiapine Fumarate 25 mg 06/18/24 21:00 06/24/24 20:30 Quetiapine Fumarate 25 Mg Tablet PO 25 mg QHS GIA Administration Roflumilast 250 mcg 06/18/24 16:00 06/24/24 17:05 Roflumilast 250 Mcg Tablet PO 250 mcg Q48H GIA Administration Sodium Chloride 10 ml 06/23/24 22:00 06/25/24 12:34 Saline Lock Flush IV PUSH 10 ml Q8HR GIA Administration Sodium Chloride 10 ml 06/23/24 15:51 Saline Lock Flush IV PUSH PRN PRN Flush Sodium Chloride 20 ml 06/23/24 15:51 Saline Lock Flush IV PUSH PRN PRN after blood draws Sodium Chloride 1 spray 06/25/24 05:47 06/25/24 06:31 Saline 0.65% Elier Soln 44 Ml Btl NASAL 1 spray Q6HR PRN Administration Congestion Vitamin B Complex 1 cap 06/19/24 09:00 06/25/24 09:16 Vitamin B Complex Capsule PO 1 cap DAILY GIA Administration Vitamin D 1,000 units 06/19/24 09:00 06/25/24 09:16 Cholecalciferol 1,000 Units Tablet PO 1,000 units DAILY GIA Administration Radiology Results: ITS Impressions Chest X-Ray 06/17/24 17:47 IMPRESSION: Pulmonary vascular congestion, without focal infiltrate or effusion. Head CT 06/17/24 20:58 Impression: No acute intracranial hemorrhage or suspicious mass effect. Redemonstration of a left sided mastoid effusion. Chest CT 06/20/24 14:19 Impression: Multiple pulmonary nodules, as detailed above. There is a new 5 mm right lower lobe nodule and an increased 1 cm left upper lobe nodule. Remaining nodules are unchanged. Mild interval progression of disease is a consideration. Extensive mild amorphous groundglass opacity could reflect pulmonary edema, posttreatment change, or nonspecific bronchitis. Correlate clinically. Stable postoperative change right lung apex. Stable peripherally sclerotic lesion in the L1 vertebral body. Labs Labs: Laboratory Results - last 24 hr 06/25/24 06/25/24 05:46 06:53 WBC 5.4 RBC 2.14 L Hgb 6.0 L* Hct 20.6 L* MCV 96.3 MCH 28.0 MCHC 29.1 L RDW 14.3 Plt Count 269 MPV 9.5 Immature Gran % (Auto) 0.7 H Neut % (Auto) 69.0 Lymph % (Auto) 11.4 L [place] % (Auto) 10.1 H Eos % (Auto) 8.4 H Baso % (Auto) 0.4 Lymph # (Auto) 0.61 L [place] # (Auto) 0.5 Eos # (Auto) 0.5 H Baso # (Auto) 0.0 Abs Immat Gran (auto) 0.04 H Absolute Neuts (auto) 3.7 Absolute Nucleated RBC 0.000 Band Neutrophils % Not Reportable Nucleated RBC % 0.0 Platelet Estimate Adequate Hypochromasia 2+ Schistocytes None seen Sodium 139 Potassium 4.0 Chloride 103 Carbon Dioxide 35 H Anion Gap 1 L BUN 21 H Creatinine 1.08 H Estim Creat Clear Calc 38 Estimated GFR 49 L Glucose 89 Calcium 10.9 H Magnesium 1.8 Total Bilirubin 0.1 L AST 23 ALT 13 Alkaline Phosphatase 83 Total Protein 6.0 L Albumin 2.7 L Blood Type O Positive Antibody Screen Negative Crossmatch See Detail Quality VTE Prophylaxis VTE prophylaxis: mechanical ordered
[2024-06-25 18:02] LABS: Hematocrit 24.4 % (37.0-47.0); Hemoglobin 7.2 g/dL (12.0-15.0)
[2024-06-25] MEDS: QUEtiapine FUMARATE 25 MG TABLET PO (21:15)
[2024-06-26] VITALS (20 sets, daily range): BP systolic 122–168; BP diastolic 56–81; PULSE 86–100; RESP 16–22; TEMP 36.2–36.9; O2SAT 90–99
[2024-06-26 00:19] LABS: Hematocrit 21.8 % (37.0-47.0)
[2024-06-26 00:22] LABS: Hemoglobin 6.5 g/dL (12.0-15.0)
[2024-06-26] MEDS: SODIUM CHLORIDE 0.9% IV 250 ML 30 ML IV CONT (01:00)
[2024-06-26] MEDS: SODIUM CHLORIDE 0.9% IV 1,000 ML 100 ML IV CONT ×2 (04:21→21:22)
[2024-06-26] MEDS: SALINE LOCK FLUSH 10 ML IV PUSH ×3 (05:45→21:22)
[2024-06-26] MEDS: ALENDRONATE SODIUM 10 MG TABLET PO (05:45)
[2024-06-26 06:33] LABS: Hematocrit 28.5 % (37.0-47.0); Hemoglobin 8.4 g/dL (12.0-15.0); Mean Corpuscular HGB Conc 29.5 g/dl (32-36); Mean Corpuscular Hemoglobin 27.4 pg (26-34); Mean Corpuscular Volume 92.8 fl (80-100); Mean Platelet Volume 9.3 fl (7.4-10.4); Platelet Count Result 303 k/mm3 (150-375); Red Blood Count 3.07 M/mm3 (4.2-5.4); Red Cell Distribution Width 15.6 % (11.5-14.5); White Blood Count 8.5 K/mm3 (4.5-10.0)
[2024-06-26 06:43] LABS: Anion Gap 1 mmol/L (4-12); Blood Urea Nitrogen 19 mg/dL (7-17); Calcium 11.7 mg/dL (8.4-10.2); Carbon Dioxide 33 mmol/L (22-30); Chloride 107 mmol/L (98-107); Estimated CRCL calculation 37 ml/min; Estimated Glomerular Filt Rate 47; Glucose 100 mg/dL (65-110); Potassium 3.9 mmol/L (3.4-5.0); Sodium 141 mmol/L (137-145)
[2024-06-26] MEDS: IPRATROPIUM 0.5 MG/ALBUTEROL SULFATE 2.5 MG AMPUL.NEB 3 ML INHALATION ×2 (08:46→19:44)
[2024-06-26] MEDS: FLUTICASONE/UMECLIDIN/VILANTER 100-62.5-25 MCG ELLIPTA 1 PUFF INHALATION (08:46)
[2024-06-26] MEDS: ASPIRIN 81 MG ENTERIC TABLET PO (09:26)
[2024-06-26] MEDS: FOLIC ACID 1 MG TABLET PO (09:26)
[2024-06-26] MEDS: ANASTROZOLE (*CHEMO) 1 MG TABLET PO (09:26)
[2024-06-26] MEDS: ASCORBIC ACID 500 MG TABLET PO (09:26)
[2024-06-26] MEDS: PANTOPRAZOLE 40 MG TABLET PO (09:26)
[2024-06-26] MEDS: DULoxetine HCL 30 MG CAPSULE.DR PO (09:26)
[2024-06-26] MEDS: VITAMIN B COMPLEX CAPSULE 1 CAP PO (09:27)
[2024-06-26] MEDS: ACETAMINOPHEN 500 MG TABLET 1000 MG PO ×2 (09:27→21:22)
[2024-06-26] MEDS: OPTI-GEN TAB 1 TABLET PO ×2 (09:27→17:28)
[2024-06-26] MEDS: CHOLECALCIFEROL 1,000 UNITS TABLET 1000 UNITS PO (09:27)
[2024-06-26] MEDS: PREGABALIN (*CRX) 75 MG CAPSULE 150 MG PO (09:27)
[2024-06-26] MEDS: HYDROCORTISONE 2.5% CREAM 30 GM TUBE 1 APPLIC RECTAL ×2 (09:32→21:23)
--- NOTE | 2024-06-26 12:54 | P.PNONC_ITS ---
Progress Note: A&P Assessment and Plan (1) Breast cancer: Qualifiers: Breast location: unspecified site of breast Estrogen receptor status: positive Patient sex: female Laterality: left Qualified Code(s): C50.912 - Malignant neoplasm of unspecified site of left female breast; Z17.0 - Estrogen receptor positive status [ER+] Code(s): C50.919 - Malignant neoplasm of unspecified site of unspecified female breast Status: Chronic Assessment and Plan: Patient is an anastrozole. Ibrance has been discontinued. (2) Lung cancer: Code(s): C34.90 - Malignant neoplasm of unspecified part of unspecified bronchus or lung Status: Chronic Assessment and Plan: CT chest done on June 18 showed multiple pulmonary nodules. 5 mm new right lower lobe nodule and increase 1 cm left upper lobe nodule. This is concerning for mild interval progression. Stable L1 sclerotic lesion in the vertebral body. I have discussed comfort care and hospice. Patient is not interested in any further treatment due to her poor performance status and worsening of anemia. I also discussed in detail with the family. They would like to go with hospice care. (3) Anemia: Code(s): D64.9 - Anemia, unspecified Status: Acute Assessment and Plan: Labs reviewed with the patient. Etiology for her persistent and recurrent anemia remains unclear. Most likely could be secondary to bone marrow disorders like myelodysplastic syndrome or bone marrow infiltration from her previous malignancy versus renal insufficiency. Other labs showed normal iron studies and elevated B12 level. She is on Procrit treatment in my office. I also discussed performing bone marrow biopsy to check for any underlying bone marrow disorders but patient and family does not want to do any more testing at this time. Most likely she will go with hospice care and would not continue any further treatment with Procrit in my office. Subjective Date/time seen: 06/26/24 12:54 Interval history: Patient seems to be comfortable. Denies any chest pain shortness of breath. Complain of tiredness and fatigue. Complain of shortness of breath without any cough. Complain of any pain. No other new complaints. Review of Systems Review of Systems Review of system as above Exam Narrative: Lungs are clear to auscultation bilaterally Cardiovascular regular rate rhythm no murmurs Abdomen soft nontender nondistended Extremities no edema Objective Data Vital Signs Vital Signs: Vital Signs - 24 hr 06/25/24 13:00 06/25/24 14:00 06/25/24 14:00 Temperature 36.1 C L 36.3 C L 36.2 C L Pulse Rate 95 87 87 Respiratory Rate 18 16 18 Blood Pressure 127/55 L 153/70 H 153/70 H Pulse Oximetry 99 97 95 Oxygen Delivery Oxygen Flow Rate 06/25/24 16:00 06/25/24 20:00 06/25/24 20:00 Temperature Pulse Rate 117 H 101 H Respiratory Rate Blood Pressure Pulse Oximetry 93 Oxygen Delivery Nasal Cannula Oxygen Flow Rate 5 06/25/24 21:05 06/25/24 21:05 06/25/24 21:15 Temperature Pulse Rate 102 H 99 Respiratory Rate 20 20 Blood Pressure Pulse Oximetry 90 Oxygen Delivery Nasal Cannula Oxygen Flow Rate 6 06/25/24 21:39 06/26/24 00:00 06/26/24 00:54 Temperature 36.4 C L 36.9 C Pulse Rate 96 99 95 Respiratory Rate 22 H 22 H Blood Pressure 149/62 H 136/58 L Pulse Oximetry 93 96 Oxygen Delivery Oxygen Flow Rate 06/26/24 01:09 06/26/24 02:09 06/26/24 03:09 Temperature 36.2 C L 36.2 C L 36.2 C L Pulse Rate 90 86 88 Respiratory Rate 20 20 20 Blood Pressure 122/61 129/56 L 146/60 H Pulse Oximetry 97 97 98 Oxygen Delivery Oxygen Flow Rate 06/26/24 04:00 06/26/24 04:22 06/26/24 06:00 Temperature 36.2 C L 36.3 C L Pulse Rate 87 86 93 Respiratory Rate 22 H 22 H Blood Pressure 142/58 H 168/81 H Pulse Oximetry 90 93 Oxygen Delivery Oxygen Flow Rate 06/26/24 08:00 06/26/24 08:46 06/26/24 08:46 Temperature Pulse Rate 96 100 Respiratory Rate 20 20 Blood Pressure Pulse Oximetry 92 92 Oxygen Delivery High Flow Nasal Cannula High Flow Nasal Cannula Oxygen Flow Rate 5 6 06/26/24 08:54 Temperature Pulse Rate 96 Respiratory Rate 20 Blood Pressure Pulse Oximetry Oxygen Delivery Oxygen Flow Rate Intake/Output Intake/Output: Intake & Output 06/23/24 06/24/24 06/25/24 06/26/24 23:59 23:59 23:59 23:59 Intake Total 2180 3035 2910 2290 Balance 2180 3035 2910 2290 Meds/Results Medications: Active Medications Generic Name Dose Route Start Last Admin Trade Name Freq PRN Reason Stop Dose Admin Acetaminophen 650 mg 06/17/24 21:46 Acetaminophen 325 Mg Tablet PO Q4H PRN Mild Pain (1-3) or Fever Acetaminophen 1,000 mg 06/18/24 21:00 06/26/24 09:27 Acetaminophen 500 Mg Tablet PO 1,000 mg Q12HR GIA Administration Hydrocodone Bitart/Acetaminophen 1 tab 06/17/24 21:46 Hydrocodone/Acetaminophen (*Crx) 5-325 Mg Tablet PO Q4H PRN Pain Rated 4-6 Albuterol/Ipratropium 3 ml 06/18/24 20:00 06/26/24 08:46 Ipratropium 0.5 Mg/Albuterol Sulfate 2.5 Mg Ampul.Neb 3 Ml INHALATION 3 ml Q12HRT GIA Administration Alendronate Sodium 10 mg 06/23/24 06:40 06/26/24 05:45 Alendronate Sodium 10 Mg Tablet PO 10 mg DAILY@0630 [facility] Administration Anastrozole 1 mg 06/19/24 09:00 06/26/24 09:26 Anastrozole (*Chemo) 1 Mg Tablet PO 1 mg DAILY GIA Administration Ascorbic Acid 500 mg 06/19/24 09:00 06/26/24 09:26 Ascorbic Acid 500 Mg Tablet PO 500 mg DAILY GIA Administration Aspirin 81 mg 06/19/24 09:00 06/26/24 09:26 Aspirin 81 Mg Enteric Tablet PO 81 mg DAILY GIA Administration Cholestyramine Resin 4 gm 06/18/24 15:36 Cholestyramine Light 4 Gm Powd.Pack PO TIDWM PRN IBS Diclofenac Sodium 1 applic 06/18/24 15:36 Diclofenac Sodium 1% 100 Gm Gel (*Bkc) TOPICAL QID PRN pain Duloxetine HCl 30 mg 06/19/24 09:00 06/26/24 09:26 Duloxetine Hcl 30 Mg Capsule.Dr PO 30 mg DAILY GIA Administration Ferrous Sulfate 650 mg 06/19/24 12:00 06/25/24 12:34 Ferrous Sulfate [address] BY MOUTH Not Given DAILY@1200 [facility] Fluticasone/Umeclidinium/Vilanterol 1 puff 06/19/24 08:00 06/26/24 08:46 Fluticasone/Umeclidin/Vilanter 100-62.5-25 Mcg Ellipta INHALATION 1 puff DAILYRT GIA Administration Folic Acid 1 mg 06/19/24 09:00 06/26/24 09:26 Folic Acid 1 Mg Tablet PO 1 mg DAILY GIA Administration Hydrocortisone 1 applic 06/19/24 21:00 06/26/24 09:32 Hydrocortisone 2.5% Cream 30 Gm Tube RECTAL 06/29/24 20:59 1 applic Q12HR GIA Administration Sodium Chloride 1,000 mls @ 100 mls/hr 06/23/24 08:00 06/26/24 09:31 Normal Saline Iv IV CONT Not Given .Q10H GIA Multivitamins/Minerals 1 tablet 06/18/24 17:00 06/26/24 09:27 Opti-Gen Tab PO 1 tablet BID GIA Administration Ondansetron HCl 4 mg 06/17/24 21:46 Ondansetron Inj 4 Mg/2 Ml Vial IV PUSH Q4H PRN Nausea Pantoprazole Sodium 40 mg 06/22/24 09:00 06/26/24 09:26 Pantoprazole 40 Mg Tablet PO 40 mg QAM GIA Administration Pregabalin 150 mg 06/19/24 09:00 06/26/24 09:27 Pregabalin (*Crx) 75 Mg Capsule PO 150 mg DAILY GIA Administration Quetiapine Fumarate 25 mg 06/18/24 21:00 06/25/24 21:15 Quetiapine Fumarate 25 Mg Tablet PO 25 mg QHS GIA Administration Roflumilast 250 mcg 06/18/24 16:00 06/24/24 17:05 Roflumilast 250 Mcg Tablet PO 250 mcg Q48H GIA Administration Sodium Chloride 10 ml 06/23/24 22:00 06/26/24 05:45 Saline Lock Flush IV PUSH 10 ml Q8HR GIA Administration Sodium Chloride 10 ml 06/23/24 15:51 Saline Lock Flush IV PUSH PRN PRN Flush Sodium Chloride 20 ml 06/23/24 15:51 Saline Lock Flush IV PUSH PRN PRN after blood draws Sodium Chloride 1 spray 06/25/24 05:47 06/25/24 21:15 Saline 0.65% Elier Soln 44 Ml Btl NASAL 1 spray Q6HR PRN Administration Congestion Vitamin B Complex 1 cap 06/19/24 09:00 06/26/24 09:27 Vitamin B Complex Capsule PO 1 cap DAILY GIA Administration Vitamin D 1,000 units 06/19/24 09:00 06/26/24 09:27 Cholecalciferol 1,000 Units Tablet PO 1,000 units DAILY GIA Administration Radiology Results: ITS Impressions Chest X-Ray 06/17/24 17:47 IMPRESSION: Pulmonary vascular congestion, without focal infiltrate or effusion. Head CT 06/17/24 20:58 Impression: No acute intracranial hemorrhage or suspicious mass effect. Redemonstration of a left sided mastoid effusion. Chest CT 06/20/24 14:19 Impression: Multiple pulmonary nodules, as detailed above. There is a new 5 mm right lower lobe nodule and an increased 1 cm left upper lobe nodule. Remaining nodules are unchanged. Mild interval progression of disease is a consideration. Extensive mild amorphous groundglass opacity could reflect pulmonary edema, posttreatment change, or nonspecific bronchitis. Correlate clinically. Stable postoperative change right lung apex. Stable peripherally sclerotic lesion in the L1 vertebral body. GI Bleed Scan Nuclear Medicine 06/26/24 12:19 IMPRESSION: 1. No scintigraphic evidence for active gastrointestinal bleeding. Labs Labs: Laboratory Results - last 24 hr 06/25/24 06/25/24 06/26/24 06:53 17:55 00:14 WBC RBC Hgb 7.2 L 6.5 L* Hct 24.4 L 21.8 L MCV MCH MCHC RDW Plt Count MPV Sodium Potassium Chloride Carbon Dioxide Anion Gap BUN Creatinine Estim Creat Clear Calc Estimated GFR Glucose Calcium Blood Type O Positive Antibody Screen Negative Crossmatch See Detail 06/26/24 06:24 WBC 8.5 RBC 3.07 L Hgb 8.4 L Hct 28.5 L MCV 92.8 MCH 27.4 MCHC 29.5 L RDW 15.6 H Plt Count 303 MPV 9.3 Sodium 141 Potassium 3.9 Chloride 107 Carbon Dioxide 33 H Anion Gap 1 L BUN 19 H Creatinine 1.12 H Estim Creat Clear Calc 37 Estimated GFR 47 L Glucose 100 Calcium 11.7 H Blood Type Antibody Screen Crossmatch
[2024-06-26] MEDS: FERROUS SULFATE 325 MG TABLET DR 650 MG BY MOUTH (13:54)
--- NOTE | 2024-06-26 15:12 | P.PNIM_ITS ---
Progress Note: A&P Assessment and Plan (1) Anemia: Code(s): D64.9 - Anemia, unspecified Status: Acute Assessment and Plan: * Acute on chronic hb 6.0, transfuse oen unit PRBC Ferritin is 19, B12/Folate wnl s/p 2 units of pRBC now on 800/1000 EGD showed Gastritis and Duodenal AVM, Colonoscopy diverticulosis without perforation GI following (2) Lung cancer: Code(s): C34.90 - Malignant neoplasm of unspecified part of unspecified bronchus or lung Status: Chronic Assessment and Plan: * Follows with Dr. Michaud (3) H/O malignant neoplasm of breast: Code(s): Z85.3 - Personal history of malignant neoplasm of breast Status: Chronic Assessment and Plan: * Continue anastrozole (4) COPD (chronic obstructive pulmonary disease): Code(s): J44.9 - Chronic obstructive pulmonary disease, unspecified Status: Chronic Assessment and Plan: * Chronic and not acutely in exacerbation. * Suspect patient's dyspnea was from her acute anemia * Continue supplemental oxygen the patient wears at home * Continue home medications once they have been confirmed * Monitor vital signs (5) Dependence on continuous supplemental oxygen: Code(s): Z99.81 - Dependence on supplemental oxygen Status: Chronic Assessment and Plan: * See 4. (6) Hypertension: Code(s): I10 - Essential (primary) hypertension Status: Chronic Assessment and Plan: * Monitor and trend labs and vital signs * Continue home medication (7) Anxiety and depression: Code(s): F41.9 - Anxiety disorder, unspecified; F32.9 - Major depressive disorder, single episode, unspecified Status: Chronic Assessment and Plan: * Continue home medications (8) GERD (gastroesophageal reflux disease): Qualifiers: Esophagitis presence: without esophagitis Qualified Code(s): K21.9 - Gastro-esophageal reflux disease without esophagitis Code(s): K21.9 - Gastro-esophageal reflux disease without esophagitis Status: Chronic Assessment and Plan: * Continue home medications (9) Mastoiditis of left side: Code(s): H70.92 - Unspecified mastoiditis, left ear Status: Acute Assessment and Plan: Status post antibiotics Consulted ENT (10) Hypercalcemia: Code(s): E83.52 - Hypercalcemia Status: Acute Assessment and Plan: Possibly due to past medical history of cancer Started on IV fluids PTH normal PTH related peptide pending, 25 hydroxy vitamin-D pending ECHO pending Plan Hypercalcemia of malignancy Ca 11.7 on IVF s/p 70 units of Calcitonin awaiting oncology recommendation DVt prophylaxis on SCDs , due to GI bleed Family wants to discuss with hospice. field care manager consulted Subjective Date/time seen: 06/26/24 15:12 Interval history: Comfortable at bedside Oncology evaluated patient today and recommended bone marrow biopsy however family wants to consider hospice. Review of Systems Review of Systems: All systems reviewed & are unremarkable except as noted in HPI and below Exam Const: General: comfortable and no acute distress Other: Pleasant, elderly female patient lying supine in stretcher this time in no acute distress. She is talkative. HENMT: Face/Nose/Sinus: Normal nares present Mouth: Yes moist mucous membranes Other: Head appears atraumatic normocephalic. Eyes: General: appearance normal, both eyes and all related structures Sclera: sclerae normal Pupils: Equal, round and reactive pupils present EOM: EOMs intact bilaterally Neck: Neck: supple and no JVD Chest: Other: Nontender to palpation, no crepitus or edema Resp: Effort & Inspection: normal respiratory effort Auscultation: clear to auscultation bilaterally Cardio: Rate: regular rate Rhythm: regular rhythm Heart sounds: no gallops, no murmurs and no rubs GI: Inspection: non-distended Auscultation: normal bowel sounds Skin: General skin exam: No normal color (Pale), No lesion and No rashes Lesions: no lesions noted Rashes: no rashes noted Wounds: no wounds Neuro: Cranial nerves: Yes Equal, round and reactive pupils present Speech: normal speech Motor exam (neuro): Abnormal motor strength present (Generalized, nonfocal weakness) Sensory Exam: normal sensation Other: Did not test gait Extrem: General: normal to inspection, no edema and no pedal edema Psych: Mental Status: mental status grossly normal Affect: normal affect Objective Data Vital Signs Vital Signs: Vital Signs - 24 hr 06/25/24 16:00 06/25/24 20:00 06/25/24 20:00 Temperature Pulse Rate 117 H 101 H Respiratory Rate Blood Pressure Pulse Oximetry 93 Oxygen Delivery Nasal Cannula Oxygen Flow Rate 5 06/25/24 21:05 06/25/24 21:05 06/25/24 21:15 Temperature Pulse Rate 102 H 99 Respiratory Rate 20 20 Blood Pressure Pulse Oximetry 90 Oxygen Delivery Nasal Cannula Oxygen Flow Rate 6 06/25/24 21:39 06/26/24 00:00 06/26/24 00:54 Temperature 97.5 F L 98.4 F Pulse Rate 96 99 95 Respiratory Rate 22 H 22 H Blood Pressure 149/62 H 136/58 L Pulse Oximetry 93 96 Oxygen Delivery Oxygen Flow Rate 06/26/24 01:09 06/26/24 02:09 06/26/24 03:09 Temperature 97.1 F L 97.2 F L 97.2 F L Pulse Rate 90 86 88 Respiratory Rate 20 20 20 Blood Pressure 122/61 129/56 L 146/60 H Pulse Oximetry 97 97 98 Oxygen Delivery Oxygen Flow Rate 06/26/24 04:00 06/26/24 04:22 06/26/24 06:00 Temperature 97.2 F L 97.4 F L Pulse Rate 87 86 93 Respiratory Rate 22 H 22 H Blood Pressure 142/58 H 168/81 H Pulse Oximetry 90 93 Oxygen Delivery Oxygen Flow Rate 06/26/24 08:00 06/26/24 08:00 06/26/24 08:46 Temperature Pulse Rate 96 92 Respiratory Rate 20 Blood Pressure Pulse Oximetry 92 92 Oxygen Delivery High Flow Nasal Cannula High Flow Nasal Cannula Oxygen Flow Rate 5 6 06/26/24 08:46 06/26/24 08:54 06/26/24 14:00 Temperature 98.0 F Pulse Rate 100 96 92 Respiratory Rate 20 20 16 Blood Pressure 136/60 Pulse Oximetry 92 Oxygen Delivery Oxygen Flow Rate Intake/Output Intake/Output: Intake & Output 06/23/24 06/24/24 06/25/24 06/26/24 23:59 23:59 23:59 23:59 Intake Total 2180 3035 2910 2530 Balance 2180 3035 2910 2530 Meds/Results Medications: Active Medications Generic Name Dose Route Start Last Admin Trade Name Freq PRN Reason Stop Dose Admin Acetaminophen 650 mg 06/17/24 21:46 Acetaminophen 325 Mg Tablet PO Q4H PRN Mild Pain (1-3) or Fever Acetaminophen 1,000 mg 06/18/24 21:00 06/26/24 09:27 Acetaminophen 500 Mg Tablet PO 1,000 mg Q12HR GIA Administration Hydrocodone Bitart/Acetaminophen 1 tab 06/17/24 21:46 Hydrocodone/Acetaminophen (*Crx) 5-325 Mg Tablet PO Q4H PRN Pain Rated 4-6 Albuterol/Ipratropium 3 ml 06/18/24 20:00 06/26/24 08:46 Ipratropium 0.5 Mg/Albuterol Sulfate 2.5 Mg Ampul.Neb 3 Ml INHALATION 3 ml Q12HRT GIA Administration Alendronate Sodium 10 mg 06/23/24 06:40 06/26/24 05:45 Alendronate Sodium 10 Mg Tablet PO 10 mg DAILY@0630 GIA Administration Anastrozole 1 mg 06/19/24 09:00 06/26/24 09:26 Anastrozole (*Chemo) 1 Mg Tablet PO 1 mg DAILY GIA Administration Ascorbic Acid 500 mg 06/19/24 09:00 06/26/24 09:26 Ascorbic Acid 500 Mg Tablet PO 500 mg DAILY GIA Administration Aspirin 81 mg 06/19/24 09:00 06/26/24 09:26 Aspirin 81 Mg Enteric Tablet PO 81 mg DAILY GIA Administration Cholestyramine Resin 4 gm 06/18/24 15:36 Cholestyramine Light 4 Gm Powd.Pack PO TIDWM PRN IBS Diclofenac Sodium 1 applic 06/18/24 15:36 Diclofenac Sodium 1% 100 Gm Gel (*Bkc) TOPICAL QID PRN pain Duloxetine HCl 30 mg 06/19/24 09:00 06/26/24 09:26 Duloxetine Hcl 30 Mg Capsule.Dr PO 30 mg DAILY GIA Administration Ferrous Sulfate 650 mg 06/19/24 12:00 06/26/24 13:54 Ferrous Sulfate [address] BY MOUTH 650 mg DAILY@1200 GIA Administration Fluticasone/Umeclidinium/Vilanterol 1 puff 06/19/24 08:00 06/26/24 08:46 Fluticasone/Umeclidin/Vilanter 100-62.5-25 Mcg Ellipta INHALATION 1 puff DAILYRT GIA Administration Folic Acid 1 mg 06/19/24 09:00 06/26/24 09:26 Folic Acid 1 Mg Tablet PO 1 mg DAILY GIA Administration Hydrocortisone 1 applic 06/19/24 21:00 06/26/24 09:32 Hydrocortisone 2.5% Cream 30 Gm Tube RECTAL 06/29/24 20:59 1 applic Q12HR GIA Administration Sodium Chloride 1,000 mls @ 100 mls/hr 06/23/24 08:00 06/26/24 09:31 Normal Saline Iv IV CONT Not Given .Q10H GIA Multivitamins/Minerals 1 tablet 06/18/24 17:00 06/26/24 09:27 Opti-Gen Tab PO 1 tablet BID GIA Administration Ondansetron HCl 4 mg 06/17/24 21:46 Ondansetron Inj 4 Mg/2 Ml Vial IV PUSH Q4H PRN Nausea Pantoprazole Sodium 40 mg 06/22/24 09:00 06/26/24 09:26 Pantoprazole 40 Mg Tablet PO 40 mg QAM GIA Administration Pregabalin 150 mg 06/19/24 09:00 06/26/24 09:27 Pregabalin (*Crx) 75 Mg Capsule PO 150 mg DAILY GIA Administration Quetiapine Fumarate 25 mg 06/18/24 21:00 06/25/24 21:15 Quetiapine Fumarate 25 Mg Tablet PO 25 mg QHS GIA Administration Roflumilast 250 mcg 06/18/24 16:00 06/24/24 17:05 Roflumilast 250 Mcg Tablet PO 250 mcg Q48H GIA Administration Sodium Chloride 10 ml 06/23/24 22:00 06/26/24 13:55 Saline Lock Flush IV PUSH 10 ml Q8HR GIA Administration Sodium Chloride 10 ml 06/23/24 15:51 Saline Lock Flush IV PUSH PRN PRN Flush Sodium Chloride 20 ml 06/23/24 15:51 Saline Lock Flush IV PUSH PRN PRN after blood draws Sodium Chloride 1 spray 06/25/24 05:47 06/25/24 21:15 Saline 0.65% Elier Soln 44 Ml Btl NASAL 1 spray Q6HR PRN Administration Congestion Vitamin B Complex 1 cap 06/19/24 09:00 06/26/24 09:27 Vitamin B Complex Capsule PO 1 cap DAILY GIA Administration Vitamin D 1,000 units 06/19/24 09:00 06/26/24 09:27 Cholecalciferol 1,000 Units Tablet PO 1,000 units DAILY GIA Administration Radiology Results: ITS Impressions Chest X-Ray 06/17/24 17:47 IMPRESSION: Pulmonary vascular congestion, without focal infiltrate or effusion. Head CT 06/17/24 20:58 Impression: No acute intracranial hemorrhage or suspicious mass effect. Redemonstration of a left sided mastoid effusion. Chest CT 06/20/24 14:19 Impression: Multiple pulmonary nodules, as detailed above. There is a new 5 mm right lower lobe nodule and an increased 1 cm left upper lobe nodule. Remaining nodules are unchanged. Mild interval progression of disease is a consideration. Extensive mild amorphous groundglass opacity could reflect pulmonary edema, posttreatment change, or nonspecific bronchitis. Correlate clinically. Stable postoperative change right lung apex. Stable peripherally sclerotic lesion in the L1 vertebral body. GI Bleed Scan Nuclear Medicine 06/26/24 12:19 IMPRESSION: 1. No scintigraphic evidence for active gastrointestinal bleeding. Labs Labs: Laboratory Results - last 24 hr 06/25/24 06/25/24 06/26/24 06:53 17:55 00:14 WBC RBC Hgb 7.2 L 6.5 L* Hct 24.4 L 21.8 L MCV MCH MCHC RDW Plt Count MPV Sodium Potassium Chloride Carbon Dioxide Anion Gap BUN Creatinine Estim Creat Clear Calc Estimated GFR Glucose Calcium Blood Type O Positive Antibody Screen Negative Crossmatch See Detail 06/26/24 06:24 WBC 8.5 RBC 3.07 L Hgb 8.4 L Hct 28.5 L MCV 92.8 MCH 27.4 MCHC 29.5 L RDW 15.6 H Plt Count 303 MPV 9.3 Sodium 141 Potassium 3.9 Chloride 107 Carbon Dioxide 33 H Anion Gap 1 L BUN 19 H Creatinine 1.12 H Estim Creat Clear Calc 37 Estimated GFR 47 L Glucose 100 Calcium 11.7 H Blood Type Antibody Screen Crossmatch Quality VTE Prophylaxis VTE prophylaxis: mechanical ordered
[2024-06-26] MEDS: ROFLUMILAST 250 MCG TABLET PO (17:28)
[2024-06-26] MEDS: QUEtiapine FUMARATE 25 MG TABLET PO (21:22)
--- NOTE | 2024-06-26 23:57 | PC.NURSE ---
During hourly rounding patient found to not have O2 on. O2 sat was 78. Patient placed on nonrebreather and resp called to bedside. Patient sats on 15 liters non rebreather increased to 99%. Resp place patient back on nasal canula at 8L and sats maintaining at 94%.
[2024-06-27] VITALS (10 sets, daily range): BP systolic 125–152; BP diastolic 60–71; PULSE 77–98; RESP 16–24; TEMP 36.2–36.6; O2SAT 95–97
--- NOTE | 2024-06-27 03:48 | PCRCNOTE ---
2320: RN reports patient desaturation into 70's. upon arrival to room, patient on NRB set to 15 L/min; SpO2: 96%, breath sounds coarse, productive cough present; SpO2 continues to rise, titrated to 10 L/min, transitioned back to HFNC set to 8 L/min for SpO2: 94% 2350: Revisit, SpO2: 96%; titrated to 7 L/min. RN reports desaturation event last pm as well Home Oxygen use: 4 L/min at rest and 6 L/min with activity
[2024-06-27] MEDS: ALENDRONATE SODIUM 10 MG TABLET PO (06:15)
[2024-06-27] MEDS: IPRATROPIUM 0.5 MG/ALBUTEROL SULFATE 2.5 MG AMPUL.NEB 3 ML INHALATION ×2 (08:12→20:02)
[2024-06-27] MEDS: FLUTICASONE/UMECLIDIN/VILANTER 100-62.5-25 MCG ELLIPTA 1 PUFF INHALATION (08:20)
[2024-06-27] MEDS: ACETAMINOPHEN 500 MG TABLET 1000 MG PO ×2 (09:35→21:08)
[2024-06-27] MEDS: OPTI-GEN TAB 1 TABLET PO ×2 (09:35→18:08)
[2024-06-27] MEDS: VITAMIN B COMPLEX CAPSULE 1 CAP PO (09:36)
[2024-06-27] MEDS: ANASTROZOLE (*CHEMO) 1 MG TABLET PO (09:36)
[2024-06-27] MEDS: PANTOPRAZOLE 40 MG TABLET PO (09:36)
[2024-06-27] MEDS: ASCORBIC ACID 500 MG TABLET PO (09:36)
[2024-06-27] MEDS: CHOLECALCIFEROL 1,000 UNITS TABLET 1000 UNITS PO (09:36)
[2024-06-27] MEDS: FOLIC ACID 1 MG TABLET PO (09:36)
[2024-06-27] MEDS: PREGABALIN (*CRX) 75 MG CAPSULE 150 MG PO (09:36)
[2024-06-27] MEDS: ASPIRIN 81 MG ENTERIC TABLET PO (09:36)
[2024-06-27] MEDS: DULoxetine HCL 30 MG CAPSULE.DR PO (09:36)
[2024-06-27] MEDS: HYDROCORTISONE 2.5% CREAM 30 GM TUBE 1 APPLIC RECTAL (09:41)
[2024-06-27] MEDS: SALINE LOCK FLUSH 10 ML IV PUSH ×3 (09:42→21:09)
--- NOTE | 2024-06-27 10:54 | PCPTNOTE ---
Holding therapy this date per STEVE Demarco. Pt is to be speaking with hospice today and her BP has been low. Pt is unable to stand therapy this date.
--- NOTE | 2024-06-27 12:54 | PCOTNOTE ---
Per Patient's daughter, they are scheduled to have a Hospice meeting at 2:00 today. Patient's daughter declined having any therapy services this P.M.
--- NOTE | 2024-06-27 14:37 | P.PNIM_ITS ---
Progress Note: A&P Assessment and Plan (1) Anemia: Code(s): D64.9 - Anemia, unspecified Status: Acute Assessment and Plan: * Acute on chronic hb 8.4, s/p 1 unit PRBC Ferritin is 19, B12/Folate wnl s/p 2 units of pRBC now on 800/1000 EGD showed Gastritis and Duodenal AVM, Colonoscopy diverticulosis without perforation GI following (2) Lung cancer: Code(s): C34.90 - Malignant neoplasm of unspecified part of unspecified bronchus or lung Status: Chronic Assessment and Plan: * Follows with Dr. Michaud (3) H/O malignant neoplasm of breast: Code(s): Z85.3 - Personal history of malignant neoplasm of breast Status: Chronic Assessment and Plan: * Continue anastrozole (4) COPD (chronic obstructive pulmonary disease): Code(s): J44.9 - Chronic obstructive pulmonary disease, unspecified Status: Chronic Assessment and Plan: * Chronic and not acutely in exacerbation. * Suspect patient's dyspnea was from her acute anemia * Continue supplemental oxygen the patient wears at home * Continue home medications once they have been confirmed * Monitor vital signs (5) Dependence on continuous supplemental oxygen: Code(s): Z99.81 - Dependence on supplemental oxygen Status: Chronic Assessment and Plan: * See 4. (6) Hypertension: Code(s): I10 - Essential (primary) hypertension Status: Chronic Assessment and Plan: * Monitor and trend labs and vital signs * Continue home medication (7) Anxiety and depression: Code(s): F41.9 - Anxiety disorder, unspecified; F32.9 - Major depressive disorder, single episode, unspecified Status: Chronic Assessment and Plan: * Continue home medications (8) GERD (gastroesophageal reflux disease): Qualifiers: Esophagitis presence: without esophagitis Qualified Code(s): K21.9 - Gastro-esophageal reflux disease without esophagitis Code(s): K21.9 - Gastro-esophageal reflux disease without esophagitis Status: Chronic Assessment and Plan: * Continue home medications (9) Mastoiditis of left side: Code(s): H70.92 - Unspecified mastoiditis, left ear Status: Acute Assessment and Plan: Status post antibiotics Consulted ENT (10) Hypercalcemia: Code(s): E83.52 - Hypercalcemia Status: Acute Assessment and Plan: Possibly due to past medical history of cancer Started on IV fluids PTH normal PTH related peptide pending, 25 hydroxy vitamin-D pending ECHO EF >70% Plan Hypercalcemia of malignancy Ca 11.7 on IVF s/p 70 units of Calcitonin awaiting oncology recommendation DVt prophylaxis on SCDs , due to GI bleed Family wants to discuss with hospice. career transition specialist consulted Subjective Date/time seen: 06/27/24 14:37 Interval history: Comfortable at bedside considering hospice today, family meeting Review of Systems Review of Systems: All systems reviewed & are unremarkable except as noted in HPI and below Exam Const: General: comfortable and no acute distress Other: Pleasant, elderly female patient lying supine in stretcher this time in no acute distress. She is talkative. HENMT: Face/Nose/Sinus: Normal nares present Mouth: Yes moist mucous membranes Other: Head appears atraumatic normocephalic. Eyes: General: appearance normal, both eyes and all related structures Sclera: sclerae normal Pupils: Equal, round and reactive pupils present EOM: EOMs intact bilaterally Neck: Neck: supple and no JVD Chest: Other: Nontender to palpation, no crepitus or edema Resp: Effort & Inspection: normal respiratory effort Auscultation: clear to auscultation bilaterally Cardio: Rate: regular rate Rhythm: regular rhythm Heart sounds: no gallops, no murmurs and no rubs GI: Inspection: non-distended Auscultation: normal bowel sounds Skin: General skin exam: No normal color (Pale), No lesion and No rashes Lesions: no lesions noted Rashes: no rashes noted Wounds: no wounds Neuro: Cranial nerves: Yes Equal, round and reactive pupils present Speech: normal speech Motor exam (neuro): Abnormal motor strength present (Generalized, nonfocal weakness) Sensory Exam: normal sensation Other: Did not test gait Extrem: General: normal to inspection, no edema and no pedal edema Psych: Mental Status: mental status grossly normal Affect: normal affect Objective Data Vital Signs Vital Signs: Vital Signs - 24 hr 06/26/24 16:00 06/26/24 19:45 06/26/24 19:55 Temperature Pulse Rate 87 96 91 Respiratory Rate 16 16 Blood Pressure Pulse Oximetry Oxygen Delivery Oxygen Flow Rate Fraction of Inspired Oxygen 06/26/24 20:00 06/26/24 22:00 06/26/24 23:20 Temperature 97.1 F L Pulse Rate 94 92 Respiratory Rate 20 Blood Pressure 146/63 H Pulse Oximetry 95 99 Oxygen Delivery Non-Rebreather Mask Oxygen Flow Rate 15 Fraction of Inspired Oxygen 06/26/24 23:50 06/27/24 00:00 06/27/24 04:00 Temperature Pulse Rate 98 77 Respiratory Rate Blood Pressure Pulse Oximetry 94 Oxygen Delivery High Flow Nasal Cannula Oxygen Flow Rate 8 Fraction of Inspired Oxygen 06/27/24 06:00 06/27/24 08:00 06/27/24 08:20 Temperature 97.9 F Pulse Rate 86 86 86 Respiratory Rate 24 H 16 16 Blood Pressure 152/60 H Pulse Oximetry 95 95 Oxygen Delivery High Flow Nasal Cannula Oxygen Flow Rate 8 Fraction of Inspired Oxygen 40 Intake/Output Intake/Output: Intake & Output 06/24/24 06/25/24 06/26/24 06/27/24 23:59 23:59 23:59 23:59 Intake Total 3035 2910 3770 780 Output Total 1 Balance 3035 2910 3770 779 Meds/Results Medications: Active Medications Generic Name Dose Route Start Last Admin Trade Name Freq PRN Reason Stop Dose Admin Acetaminophen 650 mg 06/17/24 21:46 Acetaminophen 325 Mg Tablet PO Q4H PRN Mild Pain (1-3) or Fever Acetaminophen 1,000 mg 06/18/24 21:00 06/27/24 09:35 Acetaminophen 500 Mg Tablet PO 1,000 mg Q12HR GIA Administration Hydrocodone Bitart/Acetaminophen 1 tab 06/17/24 21:46 Hydrocodone/Acetaminophen (*Crx) 5-325 Mg Tablet PO Q4H PRN Pain Rated 4-6 Albuterol/Ipratropium 3 ml 06/18/24 20:00 06/27/24 08:12 Ipratropium 0.5 Mg/Albuterol Sulfate 2.5 Mg Ampul.Neb 3 Ml INHALATION 3 ml Q12HRT GIA Administration Alendronate Sodium 10 mg 06/23/24 06:40 06/27/24 06:15 Alendronate Sodium 10 Mg Tablet PO 10 mg DAILY@0630 GIA Administration Anastrozole 1 mg 06/19/24 09:00 06/27/24 09:36 Anastrozole (*Chemo) 1 Mg Tablet PO 1 mg DAILY GIA Administration Ascorbic Acid 500 mg 06/19/24 09:00 06/27/24 09:36 Ascorbic Acid 500 Mg Tablet PO 500 mg DAILY GIA Administration Aspirin 81 mg 06/19/24 09:00 06/27/24 09:36 Aspirin 81 Mg Enteric Tablet PO 81 mg DAILY GIA Administration Cholestyramine Resin 4 gm 06/18/24 15:36 Cholestyramine Light 4 Gm Powd.Pack PO TIDWM PRN IBS Diclofenac Sodium 1 applic 06/18/24 15:36 Diclofenac Sodium 1% 100 Gm Gel (*Bkc) TOPICAL QID PRN pain Duloxetine HCl 30 mg 06/19/24 09:00 06/27/24 09:36 Duloxetine Hcl 30 Mg Capsule.Dr PO 30 mg DAILY GIA Administration Ferrous Sulfate 650 mg 06/19/24 12:00 06/27/24 13:52 Ferrous Sulfate [address] BY MOUTH Not Given DAILY@1200 GIA Fluticasone/Umeclidinium/Vilanterol 1 puff 06/19/24 08:00 06/27/24 08:20 Fluticasone/Umeclidin/Vilanter 100-62.5-25 Mcg Ellipta INHALATION 1 puff DAILYRT GIA Administration Folic Acid 1 mg 06/19/24 09:00 06/27/24 09:36 Folic Acid 1 Mg Tablet PO 1 mg DAILY GIA Administration Hydrocortisone 1 applic 06/19/24 21:00 06/27/24 09:41 Hydrocortisone 2.5% Cream 30 Gm Tube RECTAL 06/29/24 20:59 1 applic Q12HR GIA Administration Miscellaneous Information 1 each 06/27/24 00:01 [place] Needs To Be Renewed Or It Will Automatically Discontinue. XX 07/27/24 00:00 [facility] Multivitamins/Minerals 1 tablet 06/18/24 17:00 06/27/24 09:35 Opti-Gen Tab PO 1 tablet BID GIA Administration Ondansetron HCl 4 mg 06/17/24 21:46 Ondansetron Inj 4 Mg/2 Ml Vial IV PUSH Q4H PRN Nausea Pantoprazole Sodium 40 mg 06/22/24 09:00 06/27/24 09:36 Pantoprazole 40 Mg Tablet PO 40 mg QAM GIA Administration Pregabalin 150 mg 06/19/24 09:00 06/27/24 09:36 Pregabalin (*Crx) 75 Mg Capsule PO 150 mg DAILY GIA Administration Quetiapine Fumarate 25 mg 06/18/24 21:00 06/26/24 21:22 Quetiapine Fumarate 25 Mg Tablet PO 25 mg QHS GIA Administration Roflumilast 250 mcg 06/18/24 16:00 06/26/24 17:28 Roflumilast 250 Mcg Tablet PO 250 mcg Q48H GIA Administration Sodium Chloride 10 ml 06/23/24 22:00 06/27/24 09:42 Saline Lock Flush IV PUSH 10 ml Q8HR GIA Administration Sodium Chloride 10 ml 06/23/24 15:51 Saline Lock Flush IV PUSH PRN PRN Flush Sodium Chloride 20 ml 06/23/24 15:51 Saline Lock Flush IV PUSH PRN PRN after blood draws Sodium Chloride 1 spray 06/25/24 05:47 06/25/24 21:15 Saline 0.65% Elier Soln 44 Ml Btl NASAL 1 spray Q6HR PRN Administration Congestion Vitamin B Complex 1 cap 06/19/24 09:00 06/27/24 09:36 Vitamin B Complex Capsule PO 1 cap DAILY GIA Administration Vitamin D 1,000 units 06/19/24 09:00 06/27/24 09:36 Cholecalciferol 1,000 Units Tablet PO 1,000 units DAILY GIA Administration Radiology Results: ITS Impressions Chest X-Ray 06/17/24 17:47 IMPRESSION: Pulmonary vascular congestion, without focal infiltrate or effusion. Head CT 06/17/24 20:58 Impression: No acute intracranial hemorrhage or suspicious mass effect. Redemonstration of a left sided mastoid effusion. Chest CT 06/20/24 14:19 Impression: Multiple pulmonary nodules, as detailed above. There is a new 5 mm right lower lobe nodule and an increased 1 cm left upper lobe nodule. Remaining nodules are unchanged. Mild interval progression of disease is a consideration. Extensive mild amorphous groundglass opacity could reflect pulmonary edema, posttreatment change, or nonspecific bronchitis. Correlate clinically. Stable postoperative change right lung apex. Stable peripherally sclerotic lesion in the L1 vertebral body. GI Bleed Scan Nuclear Medicine 06/26/24 12:19 IMPRESSION: 1. No scintigraphic evidence for active gastrointestinal bleeding. Quality VTE Prophylaxis VTE prophylaxis: mechanical ordered
[2024-06-27] MEDS: QUEtiapine FUMARATE 25 MG TABLET PO (21:08)
[2024-06-27] MEDS: busPIRone HCL 5 MG TABLET PO (21:08)
[2024-06-28] VITALS (8 sets, daily range): BP systolic 131–152; BP diastolic 54–73; PULSE 76–88; RESP 16–18; TEMP 36.1–36.5; O2SAT 89–96
[2024-06-28] MEDS: SALINE LOCK FLUSH 10 ML IV PUSH (06:34)
[2024-06-28] MEDS: FLUTICASONE/UMECLIDIN/VILANTER 100-62.5-25 MCG ELLIPTA 1 PUFF INHALATION (08:34)
[2024-06-28] MEDS: busPIRone HCL 5 MG TABLET PO (10:03)
[2024-06-28] MEDS: LORazepam (*CRX) 0.5 MG TABLET PO (10:03)
[2024-06-28] MEDS: DULoxetine HCL 30 MG CAPSULE.DR PO (10:03)
[2024-06-28] MEDS: ACETAMINOPHEN 500 MG TABLET 1000 MG PO (10:03)
--- NOTE | 2024-06-28 10:13 | P.DS_ITS ---
DS: Admitting Diagnosis Discharge Date 06/28/24 Admitting Diagnosis Dyspnea and weakness DS: Discharge Diagnosis Discharge Diagnosis (1) Lung cancer: Code(s): C34.90 - Malignant neoplasm of unspecified part of unspecified bronchus or lung Status: Chronic (2) Weakness: Code(s): R53.1 - Weakness Status: Acute DS: Summary Hospital Course Hospital Course: This very pleasant 78-year-old female patient with past medical history of lung cancer not currently receiving any chemotherapy or immunotherapy, chronic anemia, hypertension, pleural effusion, chronic kidney disease stage 3, GERD, supplemental oxygen of chronic use, anxiety, neuropathy, COPD, IBS and previous breast cancer status post lumpectomy of the breast, cholecystectomy, appendectomy and previous lobectomy comes to the emergency room with complaints of having increasing dyspnea. Patient is very forgetful and it is difficult to get straight answers from her for her HPI put her son kidney is at the bedside to provides a lot of the historical information. Apparently at baseline patient wears 4 L of supplemental oxygen at rest and over the past few weeks she has had increased dyspnea and weakness but specifically over the past 24 hours. Her increased dyspnea has limited her mobility and has caused her even to follow hit her head. There was no loss of consciousness and she has no other acute c omplaints from the fall. Dr. Michaud is the oncologist that manages her history of cancer as well as her anemia and she routinely receives Procrit injections from him, however due to a recent hospitalization or inpatient stay somehow there was a mixup in patient's routine appointments for her Procrit injections were canceled. One week ago she went for an appointment in her hemoglobin was 7.9 and did not receive any Procrit. Over the course of the past week then she has become increasingly weak. Patient is without any acute complaints of new pain. In the emergency room workup was performed that demonstrates an acute anemia with H&H of 4.7/16.5, normal wbc's at 7.2, platelets of 189, unremarkable metabolic panel. Vital signs were stable and chest x-ray demonstrating mild pulmonary vascular congestion without focal infiltrate or effusion. Patient is receiving blood transfusion was being admitted to the hospital in the setting in Oncology for Dr. Michaud will be consulted. Gi was consulted and patient underwent EGD whcih showed non bleeding AVM and gastritis , underwent cauterization. Colonoscopy showed diverticulosis and internal hemorrhoids. Anemia, she received 3 units of pRBC and IV iron 800mg Also continued receiving Anastrozole, Oncology was consulted noted that patient could not tolerate Ibrance due to anemia and was discontinued SHe continued to have Time Spent with Patient Time attestation: Total time spent providing and/or coordinating discharge services: DS: Data Data Completed and Pending Completed studies during hospitalization: Pending at discharge 06/21/24 14:56 Surgical [PTH] Routine Discharge Plan Discharge Attending physician on discharge: Shantel Goldberg Consulting providers: David Michaud; Maritza Kramer; Shantel Goldberg Discharging Clinician: Shnatel Goldberg Anticipated Discharge Date/Time: 06/28/24 10:11 Patient Disposition: Hospice - Medical Facility Activity: as tolerated Diet: as tolerated Patient Language: Greenlandic Stand Alone Forms: General Discharge Information Follow-up/Referrals: Bernadette Cedillo MD [Primary Care Provider] - (F/u with PCP and hospice care ) Discharge Medications: Continued aspirin [Ian Low Dose Aspirin] 81 mg Tablet,Delayed Release (Dr/Ec) 81 mg PO DAILY Patient Comments: . PreserVision AREDS-2 250-90-40-1 mg capsule 1 tablet PO BID vcdrlfhe-guotild-vkfq-lutein Tablet 1 tablet PO DAILY cholecalciferol (vitamin D3) 25 mcg (1,000 unit) capsule 25 mcg PO DAILY anastrozole 1 mg tablet 1 mg PO DAILY ferrous sulfate [FeroSul] 325 mg (65 mg iron) tablet 650 mg PO DAILY ascorbate calcium (vitamin C) 500 mg tablet 500 mg PO DAILY Patient Comments: . Nikunjtz Autoinjector 80 mg/mL auto-injector See Rx Instructions .ROUTE .COMPLEX Qty: 3 4RF Dose Instruction: INJECT 80MG (1 PEN) UNDER THE SKIN EVERY 4 WEEKS Patient Comments: TAKES ON THE OF EACH MONTH Rx Instructions: INJECT 80MG (1 PEN) UNDER THE SKIN EVERY 4 WEEKS Ibrance 100 mg capsule 100 mg PO DAILY Rx Instructions: administer on days 1 through 21 of a 28-day treatment cycle Tyrvaya 0.03 mg/spray spray, metered, non-aerosol 1 spray intranasal DAILY Rx Instructions: administer into each nostril vitamin B complex Tablet 1 tablet PO DAILY roflumilast [Daliresp] 250 mcg tablet 250 mcg PO EVERY OTHER DAY Patient Comments: NEEDS MONDAY ipratropium-albuterol 0.5 mg-3 mg(2.5 mg base)/3 mL Solution For Nebulization 3 ml INHALATION BID acetaminophen 500 mg tablet 1,000 mg PO BID Prevalite 4 gram powder in packet 1 ea PO TIDWM PRN (Reason: IBS) PreserVision AREDS-2 250-90-40-1 mg capsule 1 tablet PO BID Breztri Aerosphere 160-9-4.8 mcg/actuation HFA aerosol inhaler See Rx Instructions .ROUTE .COMPLEX Qty: 10.7 5RF Dose Instruction: INHALE 2 BREATHS EVERY MORNING AND EVENING; RINSE AND SPIT, USE WITH A SPACER Rx Instructions: INHALE 2 BREATHS EVERY MORNING AND EVENING; RINSE AND SPIT, USE WITH A SPACER pregabalin 150 mg capsule 150 mg PO DAILY Qty: 90 3RF folic acid 1 mg tablet 1 mg PO DAILY Qty: 90 1RF quetiapine 25 mg tablet 25 mg PO QHS Qty: 90 1RF duloxetine 30 mg capsule,delayed release(DR/EC) 30 mg PO DAILY Qty: 30 1RF sennosides-docusate sodium [Senokot-S] 8.6-50 mg Tablet 2 tab PO BID Qty: 0 0RF duloxetine [Cymbalta] 30 mg Capsule,Delayed Release(Dr/Ec) 30 mg PO DAILY Qty: 0 0RF diclofenac sodium [Arthritis Pain (diclofenac)] 1 % gel 2 g topical QID PRN (Reason: pain) Qty: 100 0RF Rx Instructions: apply to single elbow, wrist or hand; for hand includes palm/fingers/back of hand doxycycline hyclate 100 mg Tablet 100 mg PO Q12HR Qty: 28 0RF amoxicillin-pot clavulanate 875-125 mg tablet 1 tablet PO Q12H Qty: 28 0RF Date of admission: 06/18/24 16:27 Primary Care Provider: Bernadette Cedillo Admitting Provider: Shantel Goldberg Attending physician on admission: Shantel Goldberg Condition: Stable
--- NOTE | 2024-06-28 10:45 | P.PNIM_ITS ---
Progress Note: A&P Assessment and Plan (1) Lung cancer: Code(s): C34.90 - Malignant neoplasm of unspecified part of unspecified bronchus or lung Status: Chronic Assessment and Plan: * Follows with Dr. Michaud (2) Weakness: Code(s): R53.1 - Weakness Status: Acute Plan Hypercalcemia of malignancy Ca 11.7 on IVF s/p 70 units of Calcitonin awaiting oncology recommendation Acute hypoxemic respiratoyr failure From Lung ca, and COPD continue oxygen titration Anemia, from AVM and Gastritis s/p EGD with cauterization hb 8.4, s/p 1 unit PRBC Ferritin is 19, B12/Folate wnl s/p 2 units of pRBC now on 800/1000 EGD showed Gastritis and Duodenal AVM, Colonoscopy diverticulosis without perforation GI following Breast cancer with lung and bone metastatis consinue Anastrozole COPD Contineu bronchodilators HTN continue home meds Anxiety and depression Contineu home meds Patient now on comfort care Patient and family discussed and decided to transition to comfort care. Subjective Date/time seen: 06/28/24 10:45 Interval history: Comfortable at bedside Patient and family have decided to transition to comfort care Comfort care instituted Review of Systems Review of Systems: All systems reviewed & are unremarkable except as noted in HPI and below Exam Const: General: comfortable and no acute distress Other: Pleasant, elderly female patient lying supine in stretcher this time in no acute distress. She is talkative. HENMT: Face/Nose/Sinus: Normal nares present Mouth: Yes moist mucous membranes Other: Head appears atraumatic normocephalic. Eyes: General: appearance normal, both eyes and all related structures Sclera: sclerae normal Pupils: Equal, round and reactive pupils present EOM: EOMs intact bilaterally Neck: Neck: supple and no JVD Chest: Other: Nontender to palpation, no crepitus or edema Resp: Effort & Inspection: normal respiratory effort Auscultation: clear to auscultation bilaterally Cardio: Rate: regular rate Rhythm: regular rhythm Heart sounds: no gallops, no murmurs and no rubs GI: Inspection: non-distended Auscultation: normal bowel sounds Skin: General skin exam: No normal color (Pale), No lesion and No rashes Lesions: no lesions noted Rashes: no rashes noted Wounds: no wounds Neuro: Cranial nerves: Yes Equal, round and reactive pupils present Speech: normal speech Motor exam (neuro): Abnormal motor strength present (Generalize d, nonfocal weakness) Sensory Exam: normal sensation Other: Did not test gait Extrem: General: normal to inspection, no edema and no pedal edema Psych: Mental Status: mental status grossly normal Affect: normal affect Objective Data Vital Signs Vital Signs: Vital Signs - 24 hr 06/27/24 12:00 06/27/24 16:00 06/27/24 20:02 Temperature Pulse Rate 81 85 96 Respiratory Rate 16 Blood Pressure Pulse Oximetry Oxygen Delivery Oxygen Flow Rate 06/27/24 20:04 06/27/24 22:00 06/28/24 07:00 Temperature 97.2 F L 97.7 F Pulse Rate 88 87 Respiratory Rate 16 16 Blood Pressure 125/71 139/61 Pulse Oximetry 95 97 95 Oxygen Delivery High Flow Nasal Cannula Oxygen Flow Rate 8 06/28/24 08:39 06/28/24 08:40 06/28/24 09:35 Temperature Pulse Rate 76 76 Respiratory Rate 18 18 Blood Pressure Pulse Oximetry 89 L 91 Oxygen Delivery High Flow Nasal Cannula High Flow Nasal Cannula Oxygen Flow Rate 7 8 Intake/Output Intake/Output: Intake & Output 06/25/24 06/26/24 06/27/24 06/28/24 23:59 23:59 23:59 23:59 Intake Total 2910 3770 1854 640 Output Total 1 Balance 2910 3770 1853 640 Meds/Results Medications: Active Medications Generic Name Dose Route Start Last Admin Trade Name Freq PRN Reason Stop Dose Admin Acetaminophen 650 mg 06/17/24 21:46 Acetaminophen 325 Mg Tablet PO Q4H PRN Mild Pain (1-3) or Fever Acetaminophen 1,000 mg 06/18/24 21:00 06/28/24 10:03 Acetaminophen 500 Mg Tablet PO 1,000 mg Q12HR GIA Administration Albuterol/Ipratropium 3 ml 06/18/24 20:00 06/27/24 20:02 Ipratropium 0.5 Mg/Albuterol Sulfate 2.5 Mg Ampul.Neb 3 Ml INHALATION 3 ml Q12HRT GIA Administration Alendronate Sodium 10 mg 06/23/24 06:40 06/28/24 06:56 Alendronate Sodium 10 Mg Tablet PO Not Given DAILY@0630 GIA Anastrozole 1 mg 06/19/24 09:00 06/27/24 09:36 Anastrozole (*Chemo) 1 Mg Tablet PO 1 mg DAILY GIA Administration Ascorbic Acid 500 mg 06/19/24 09:00 06/27/24 09:36 Ascorbic Acid 500 Mg Tablet PO 500 mg DAILY [facility]IA Administration Aspirin 81 mg 06/19/24 09:00 06/27/24 09:36 Aspirin 81 Mg Enteric Tablet PO 81 mg DAILY [facility]IA Administration Buspirone HCl 5 mg 06/27/24 21:00 06/28/24 10:03 Buspirone Hcl 5 Mg Tablet PO 5 mg Q12HR GIA Administration Cholestyramine Resin 4 gm 06/18/24 15:36 Cholestyramine Light 4 Gm Powd.Pack PO TIDWM PRN IBS Diclofenac Sodium 1 applic 06/18/24 15:36 Diclofenac Sodium 1% 100 Gm Gel (*Bkc) TOPICAL QID PRN pain Duloxetine HCl 30 mg 06/19/24 09:00 06/28/24 10:03 Duloxetine Hcl 30 Mg Capsule.Dr PO 30 mg DAILY [facility] Administration Ferrous Sulfate 650 mg 06/19/24 12:00 06/27/24 13:52 Ferrous Sulfate [address] BY MOUTH Not Given DAILY@1200 [facility] Fluticasone/Umeclidinium/Vilanterol 1 puff 06/19/24 08:00 06/28/24 08:34 Fluticasone/Umeclidin/Vilanter 100-62.5-25 Mcg Ellipta INHALATION 1 puff DAILYRT [facility] Administration Folic Acid 1 mg 06/19/24 09:00 06/27/24 09:36 Folic Acid 1 Mg Tablet PO 1 mg DAILY [facility] Administration Hydrocortisone 1 applic 06/19/24 21:00 06/27/24 21:08 Hydrocortisone 2.5% Cream 30 Gm Tube RECTAL 06/29/24 20:59 Not Given Q12HR [facility] Lorazepam 0.5 mg 06/27/24 16:28 06/28/24 10:03 Lorazepam (*Crx) 0.5 Mg Tablet PO 0.5 mg Q6H PRN Administration Anxiety Miscellaneous Information 1 each 06/27/24 00:01 [place] Needs To Be Renewed Or It Will Automatically Discontinue. XX 07/27/24 00:00 CLARIFY GIA Miscellaneous Information 0 each 06/28/24 00:01 Please Renew Pregabalin- 10 Day Outdate For Controlled Substance XX 07/28/24 00:00 CLARIFY GIA Multivitamins/Minerals 1 tablet 06/18/24 17:00 06/27/24 18:08 Opti-Gen Tab PO 1 tablet BID [facility]IA Administration Ondansetron HCl 4 mg 06/17/24 21:46 Ondansetron Inj 4 Mg/2 Ml Vial IV PUSH Q4H PRN Nausea Pantoprazole Sodium 40 mg 06/22/24 09:00 06/27/24 09:36 Pantoprazole 40 Mg Tablet PO 40 mg QAM [facility]IA Administration Pregabalin 150 mg 06/19/24 09:00 06/27/24 09:36 Pregabalin (*Crx) 75 Mg Capsule PO 150 mg DAILY [facility] Administration Quetiapine Fumarate 25 mg 06/18/24 21:00 06/27/24 21:08 Quetiapine Fumarate 25 Mg Tablet PO 25 mg QHS [facility] Administration Roflumilast 250 mcg 06/18/24 16:00 06/26/24 17:28 Roflumilast 250 Mcg Tablet PO 250 mcg Q48H [facility] Administration Sodium Chloride 10 ml 06/23/24 22:00 06/28/24 06:34 Saline Lock Flush IV PUSH 10 ml Q8HR [facility] Administration Sodium Chloride 10 ml 06/23/24 15:51 Saline Lock Flush IV PUSH PRN PRN Flush Sodium Chloride 20 ml 06/23/24 15:51 Saline Lock Flush IV PUSH PRN PRN after blood draws Sodium Chloride 1 spray 06/25/24 05:47 06/25/24 21:15 Saline 0.65% Elier Soln 44 Ml Btl NASAL 1 spray Q6HR PRN Administration Congestion Vitamin B Complex 1 cap 06/19/24 09:00 06/27/24 09:36 Vitamin B Complex Capsule PO 1 cap DAILY [facility] Administration Vitamin D 1,000 units 06/19/24 09:00 06/27/24 09:36 Cholecalciferol 1,000 Units Tablet PO 1,000 units DAILY [facility]IA Administration Radiology Results: ITS Impressions Chest X-Ray 06/17/24 17:47 IMPRESSION: Pulmonary vascular congestion, without focal infiltrate or effusion. Head CT 06/17/24 20:58 Impression: No acute intracranial hemorrhage or suspicious mass effect. Redemonstration of a left sided mastoid effusion. Chest CT 06/20/24 14:19 Impression: Multiple pulmonary nodules, as detailed above. There is a new 5 mm right lower lobe nodule and an increased 1 cm left upper lobe nodule. Remaining nodules are unchanged. Mild interval progression of disease is a consideration. Extensive mild amorphous groundglass opacity could reflect pulmonary edema, posttreatment change, or nonspecific bronchitis. Correlate clinically. Stable postoperative change right lung apex. Stable peripherally sclerotic lesion in the L1 vertebral body. GI Bleed Scan Nuclear Medicine 06/26/24 12:19 IMPRESSION: 1. No scintigraphic evidence for active gastrointestinal bleeding. Quality VTE Prophylaxis VTE prophylaxis: mechanical ordered
[2024-06-28] MEDS: MORPHINE SULFATE (*CRX) 2 MG/ML INJ IV PUSH (12:45)
[2024-06-28] MEDS: CHOLESTYRAMINE LIGHT 4 GM POWD.PACK PO (13:19)
[2024-06-28] MEDS: ONDANSETRON INJ 4 MG/2 ML VIAL IV PUSH (13:27)
[2024-06-28] MEDS: LORazepam INJ (*CRX) 2 MG/ML VIAL IV PUSH ×3 (17:35→23:10)
[2024-06-28 23:30] LABS: Parathyroid Hormone Related Pr 10 pg/mL (11-20)
[2024-06-29 02:40] VITALS: O2SAT 92
[2024-06-29] MEDS: LORazepam INJ (*CRX) 2 MG/ML VIAL IV PUSH ×2 (04:03→08:53)
[2024-06-29] MEDS: MORPHINE SULFATE (*CRX) 2 MG/ML INJ IV PUSH ×2 (08:19→10:43)
[2024-06-29] MEDS: IPRATROPIUM 0.5 MG/ALBUTEROL SULFATE 2.5 MG AMPUL.NEB 3 ML INHALATION (08:55)
[2024-06-29] MEDS: FLUTICASONE/UMECLIDIN/VILANTER 100-62.5-25 MCG ELLIPTA 1 PUFF INHALATION (08:55)
--- NOTE | 2024-06-29 08:55 | PCRCNOTE ---
RT will call provider about discontinuing neb and DPI orders due to patient being comfort care per RN.
--- NOTE | 2024-06-30 14:18 | PM.DS ---
DS: Admitting Diagnosis Discharge Date 06/29/24 Admitting Diagnosis Dyspnea and weakness DS: Discharge Diagnosis Discharge Diagnosis (1) Anemia: Code(s): D64.9 - Anemia, unspecified Status: Acute (2) Respiratory failure: Code(s): J96.90 - Respiratory failure, unspecified, unspecified whether with hypoxia or hypercapnia Status: Acute DS: Summary Hospital Course Hospital Course: This very pleasant 78-year-old female patient with past medical history of lung cancer not currently receiving any chemotherapy or immunotherapy, chronic anemia, hypertension, pleural effusion, chronic kidney disease stage 3, GERD, supplemental oxygen of chronic use, anxiety, neuropathy, COPD, IBS and previous breast cancer status post lumpectomy of the breast, cholecystectomy, appendectomy and previous lobectomy comes to the emergency room with complaints of having increasing dyspnea. Patient is very forgetful and it is difficult to get straight answers from her for her HPI put her son kidney is at the bedside to provides a lot of the historical information. Apparently at baseline patient wears 4 L of supplemental oxygen at rest and over the past few weeks she has had increased dyspnea and weakness but specifically over the past 24 hours. Her increased dyspnea has limited her mobility and has caused her even to follow hit her head. There was no loss of consciousness and she has no other acute complaints from the fall. Dr. Michaud is the oncologist that manages her history of cancer as well as her anemia and she routinely receives Procrit injections from him, however due to a recent hospitalization or inpatient stay somehow there was a mixup in patient's routine appointments for her Procrit injections were canceled. One week ago she went for an appointment in her hemoglobin was 7.9 and did not receive any Procrit. Over the course of the past week then she has become increasingly weak. Patient is without any acute complaints of new pain. In the emergency room workup was performed that demonstrates an acute anemia with H&H of 4.7/16.5, normal wbc's at 7.2, platelets of 189, unremarkable metabolic panel. Vital signs were stable and chest x-ray demonstrating mild pulmonary vascular congestion without focal infiltrate or effusion. Patient is receiving blood transfusion was being admitted to the hospital in the setting in Oncology for Dr. Michaud will be consulted. She was managed for hypercalcemia of malignancy which was recalcitrant, depsite IVF and calcitonin. Oncology was consulted and recommended bone marrow biopsy which patient and family declined and opted for comfort care adn hospice and patient was discharged to hospice. She also received 3 units of pRBC, and 800mg IV iron, underwent EGD which showed Gastritis and Duodenal AVM with cauterization. Patient discharged to hospice care. Time Spent with Patient Time attestation: Total time spent providing and/or coordinating discharge services: DS: Data Data Completed and Pending Completed studies during hospitalization: Pending at discharge 06/21/24 14:56 Surgical [PTH] Routine Discharge Plan Discharge Attending physician on discharge: Shantel Goldberg Consulting providers: David Michaud; Maritza Kramer; Shantel Goldberg Discharging Clinician: Shantel Goldberg Anticipated Discharge Date/Time: 06/28/24 10:11 Patient Disposition: Hospice - Medical Facility Activity: as tolerated Diet: as tolerated Patient Language: Burkinan Stand Alone Forms: General Discharge Information Follow-up/Referrals: Bernadette Cedillo MD [Primary Care Provider] - (F/u with PCP and hospice care ) Discharge Medications: Continued aspirin [Ian Low Dose Aspirin] 81 mg Tablet,Delayed Release (Dr/Ec) 81 mg PO DAILY Patient Comments: . PreserVision AREDS-2 250-90-40-1 mg capsule 1 tablet PO BID qzncfpea-ixalsht-alag-lutein Tablet 1 tablet PO DAILY cholecalciferol (vitamin D3) 25 mcg (1,000 unit) capsule 25 mcg PO DAILY anastrozole 1 mg tablet 1 mg PO DAILY ferrous sulfate [FeroSul] 325 mg (65 mg iron) tablet 650 mg PO DAILY ascorbate calcium (vitamin C) 500 mg tablet 500 mg PO DAILY Patient Comments: . Nikunjtz Autoinjector 80 mg/mL auto-injector See Rx Instructions .ROUTE .COMPLEX Qty: 3 4RF Dose Instruction: INJECT 80MG (1 PEN) UNDER THE SKIN EVERY 4 WEEKS Patient Comments: TAKES ON THE OF EACH MONTH Rx Instructions: INJECT 80MG (1 PEN) UNDER THE SKIN EVERY 4 WEEKS Ibrance 100 mg capsule 100 mg PO DAILY Rx Instructions: administer on days 1 through 21 of a 28-day treatment cycle Tyrvaya 0.03 mg/spray spray, metered, non-aerosol 1 spray intranasal DAILY Rx Instructions: administer into each nostril vitamin B complex Tablet 1 tablet PO DAILY roflumilast [Daliresp] 250 mcg tablet 250 mcg PO EVERY OTHER DAY Patient Comments: NEEDS MONDAY ipratropium-albuterol 0.5 mg-3 mg(2.5 mg base)/3 mL Solution For Nebulization 3 ml INHALATION BID acetaminophen 500 mg tablet 1,000 mg PO BID Prevalite 4 gram powder in packet 1 ea PO TIDWM PRN (Reason: IBS) PreserVision AREDS-2 250-90-40-1 mg capsule 1 tablet PO BID Breztri Aerosphere 160-9-4.8 mcg/actuation HFA aerosol inhaler See Rx Instructions .ROUTE .COMPLEX Qty: 10.7 5RF Dose Instruction: INHALE 2 BREATHS EVERY MORNING AND EVENING; RINSE AND SPIT, USE WITH A SPACER Rx Instructions: INHALE 2 BREATHS EVERY MORNING AND EVENING; RINSE AND SPIT, USE WITH A SPACER pregabalin 150 mg capsule 150 mg PO DAILY Qty: 90 3RF folic acid 1 mg tablet 1 mg PO DAILY Qty: 90 1RF quetiapine 25 mg tablet 25 mg PO QHS Qty: 90 1RF duloxetine 30 mg capsule,delayed release(DR/EC) 30 mg PO DAILY Qty: 30 1RF sennosides-docusate sodium [Senokot-S] 8.6-50 mg Tablet 2 tab PO BID Qty: 0 0RF duloxetine [Cymbalta] 30 mg Capsule,Delayed Release(Dr/Ec) 30 mg PO DAILY Qty: 0 0RF diclofenac sodium [Arthritis Pain (diclofenac)] 1 % gel 2 g topical QID PRN (Reason: pain) Qty: 100 0RF Rx Instructions: apply to single elbow, wrist or hand; for hand includes palm/fingers/back of hand doxycycline hyclate 100 mg Tablet 100 mg PO Q12HR Qty: 28 0RF amoxicillin-pot clavulanate 875-125 mg tablet 1 tablet PO Q12H Qty: 28 0RF Date of admission: 06/18/24 16:27 Primary Care Provider: Bernadette Cedillo Admitting Provider: Shantel Goldberg Attending physician on admission: Shantel Goldberg Condition: Stable
== END 2024-06-29 12:11 | disposition hospice, inpatient (51) | DRG 811 ==
LOC: ANHED 18:39 → ANH3MED 22:04
PROVIDERS: General Practice; Internal Medicine Gastroenterology; Internal Medicine Hematology & Oncology; Nurse Practitioner Adult Health; Admitting Provider Internal Medicine; Emergency Provider Emergency Medicine; PCP Family Medicine; Visit Provider Internal Medicine
PROC: 0DJ08ZZ Inspection of Upper Intestinal Tract, Via Natural or Artificial Opening Endoscopic (ICD-10-PCS; CPT 45378; principal; 2024-06-21 16:00)
DX: D62 Acute posthemorrhagic anemia (principal); J96.20 Acute and chronic respiratory failure, unspecified whether with hypoxia or hypercapnia; K55.21 Angiodysplasia of colon with hemorrhage; C78.00 Secondary malignant neoplasm of unspecified lung; C79.51 Secondary malignant neoplasm of bone; D63.1 Anemia in chronic kidney disease; D63.0 Anemia in neoplastic disease; C50.919 Malignant neoplasm of unspecified site of unspecified female breast; D63.8 Anemia in other chronic diseases classified elsewhere; D46.9 Myelodysplastic syndrome, unspecified; K44.9 Diaphragmatic hernia without obstruction or gangrene; K29.70 Gastritis, unspecified, without bleeding; J44.9 Chronic obstructive pulmonary disease, unspecified; I12.9 Hypertensive chronic kidney disease with stage 1 through stage 4 chronic kidney disease, or unspecified chronic kidney disease; K57.30 Diverticulosis of large intestine without perforation or abscess without bleeding; K64.8 Other hemorrhoids; N18.30 Chronic kidney disease, stage 3 unspecified; K21.9 Gastro-esophageal reflux disease without esophagitis; H70.92 Unspecified mastoiditis, left ear; H61.23 Impacted cerumen, bilateral; F41.9 Anxiety disorder, unspecified; F32.9 Major depressive disorder, single episode, unspecified; E83.52 Hypercalcemia; Z87.891 Personal history of nicotine dependence; Z85.3 Personal history of malignant neoplasm of breast; Z99.81 Dependence on supplemental oxygen
CPT/HCPCS: 36415; 36430; 36569; 70450; 71046; 71250; 78278; 80048; 80053; 82330; 82607; 83519; 83540; 83550; 83615; 83735; 83880; 83970; 85014; 85018; 85025; 85027; 85610; 85730; 86850; 86880; 86900; 86901; 86923; 87045; 87427; 87449; 88305; 88313; 93005; 93306; 94640; 96361; 96374; 97110; 97116; 97161; 97165; 97530; 97535; 99285; A9270; A9560; C1751; J0630; J1756; J2060; J2270; J2405; J2704; J7030; J7050; J7120; P9016

== ENCOUNTER 2024-06-29 12:06 | HOS | payer OTHER, MEDICARE, SELFPAY ==
--- OUTSIDE RECORDS SUMMARY | 2024-06-29 12:24 | XMS_ITS | Clinical Summary ---
Author Organization [facility] Address [address] [place] [address] Care Team Providers Care Brand Sales Consultant Name Role Phone Bernadette Cedillo MD Primary Care Provider [phone] Allergies Active Allergy Reactions Criticality Noted Date [...] Encounters Date Type Department Care Team Description 06/21/2024 Orders Only [facility] Oncology and Hematology - [place] [address] [place] [address] David Michaud MD 06/12/2024 Orders Only [facility] Oncology and Hematology - [place] [address] [place] [address] David Michaud MD 06/11/2024 Orders Only [facility] Oncology and Hematology - [place] [address] [place] [address] David Michaud MD Malignant 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, estrogen receptor positive (CMS/HCC) (Primary Dx) 06/03/2024 Orders Only [facility] Oncology and Hematology - [place] [address] [place] [address] David Michaud MD Malignant 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, estrogen receptor positive (CMS/HCC) 05/20/2024 Orders Only [facility] Oncology and Hematology - [place] [address] David Michaud MD Malignant 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, estrogen receptor positive (CMS/HCC) 05/16/2024 Abstract [facility] Oncology and Hematology - [place] [address] [place] [id number] David Michaud MD 05/15/2024 Orders Only [facility] Oncology and Hematology - [place] [address] David Michaud MD 05/14/2024 Orders Only [facility] Oncology and Hematology - [place] [address] David Michaud MD 05/06/2024 Orders Only [facility] Oncology and Hematology - [place] [address] David Michaud MD Malignant 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, estrogen receptor positive (CMS/HCC) 04/22/2024 Orders Only [facility] Oncology and Hematology - [place] [address] David Michaud MD Malignant 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, estrogen receptor positive (CMS/HCC) 04/16/2024 Orders Only [facility] Oncology and Hematology - [place] [address] David Michaud MD 04/08/2024 Orders Only [facility] Oncology and Hematology - [place] [address] [place] [id number] David Michaud MD Malignant 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, estrogen receptor positive (CMS/HCC) 04/04/2024 8:30 AM ANCILLARY SERVICES MANAGER THERAPY Office Visit [facility] Oncology and Hematology [facility] [address] [place] [address] David Michaud MD Malignant 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, estrogen receptor positive (CMS/HCC) (Primary Dx); Non-small cell cancer of left lung (CMS/HCC) 04/02/2024 External Device Data [facility] ABSTRACTION Provider, Abstract from Last 3 Months Family History Medical [...] on file Legal Sex Female 2:13 PM ANCILLARY SERVICES MANAGER THERAPY Gender Identity Not on file Sexual Orientation Not on file Last Filed Vital Signs Vital Sign Reading Time Taken Comments Blood Pressure 167/91 04/04/2024 8:48 AM ANCILLARY SERVICES MANAGER THERAPY Pulse 73 04/04/2024 8:45 AM ANCILLARY SERVICES MANAGER THERAPY Temperature 36.1 C (97 F) 04/04/2024 8:45 AM ANCILLARY SERVICES MANAGER THERAPY Respiratory Rate 15 04/04/2024 8:45 AM ANCILLARY SERVICES MANAGER THERAPY Oxygen Saturation 99% 04/04/2024 8:45 AM ANCILLARY SERVICES MANAGER THERAPY Inhaled Oxygen Concentration - - Weight 71.5 kg (157 lb 9.6 oz) 04/04/2024 8:45 A M ANCILLARY SERVICES MANAGER THERAPY Height 154.9 cm (5' 1 ) 07/09/2021 9:59 AM CDT Body Mass Index 29.78 07/09/2021 9:59 AM CDT Plan of Treatment Health Maintenance Due Date Last Done Comments DTAP/TDAP/TD VACCINES (1 - Tdap) 09/04/1966 PNEUMOCOCCAL VACCINE 50+ YEARS (1 of 2 - PCV) 09/04/18 67 ZOSTER VACCINE (1 of 2) 09/04/1997 RSV VACCINE (60+ or ) (1 - 1-dose 75+ series) 09/04/2022 INFLUENZA VACCINE (#1) 2023 OSTEOPOROSIS SCREENING 12/14/2025 12/14/2020 Lung Cancer Screening Discontinued 06/22/2016 COLORECTAL SCREENING Discontinued 06/16/2021 Colorectal Cancer Screening Discontinued FIT-DNA Q 3 years Discontinued FIT/FOBT Q 1 year Discontinued Flex Sig/CT Colonography Q 5 years Discontinued Procedures Procedure Name Priority Date/Time Associated Diagnosis Comments CT CHEST W CONTRAST Routine 06/18/2024 8 :39 AM CDT CBC MIXED CELL DIFFERENTIAL Routine 05/15 1:04 PM CDT CANCER ANTIGEN 15-3 Routine 06/11/2024 9 :44 AM CDT COMPREHENSIVE METABOLIC PANEL Routine 06/11/2024 8:56 AM CDT TYPE AND SCREEN Routine 05/15/2024 11:09 AM CDT CBC WITH AUTODIFFERENTIAL Routine 2024 1:08 PM CDT CBC WITH AUTODIFFERENTIAL Routine 2024 1:22 PM ANCILLARY SERVICES MANAGER THERAPY from Last 3 Months Results * CT CHEST W CONTRAST (06/18/2024 8:39 AM CDT) Anatomical Region Laterality Modality Chest Computed Tomogra phy us David Michaud MD CT ORDERABLES Final Result * CBC MIXED CELL DIFFERENTIAL (06/11/2024 1:04 PM CDT) Blood us David Michaud MD HEMATOLOGY ORDERABLES [...] Res ult from Last 3 Months Insurance MEDICARE [employer] [address] MEDICARE [facility]RO[facility] Medicare Part D RX [facility]ERTIFIED [facility]GAL [facility] Commercial Care Teams Brand Sales Consultant Relationship Specialty Start Date End Date Bernadette Cedillo MD [address] [place] [address] PCP - General Family Practice 06/30/22
--- OUTSIDE RECORDS SUMMARY | 2024-06-29 12:24 | XMS_ITS | Clinical Summary ---
Author Organization [facility] Address [address] [place] [address] Care Team Providers Care Club Waiter/Waitress Name Role Phone Bernadette Cedillo MD Primary Care Provider [phone] Source Comments [facility],non-owned Affiliates and Associated Physician Practices is amultiple site organization consisting of ambulatory clinics and hospital sitesin [place], [place], [place] and [place]. This disclosure is being madepursuant to the Care Everywhere program and may not contain all information available regarding this patient. Last updated 17.[facility] Social History Tobacco Use Types Packs/Day Years Used Date Smoking Tobacco: Never Assessed Comments Unknown Sex and Gender Information Value Date Recorded Sex Assigned at Not on file Legal Sex Female 3:53 PM MONEY ORDER CLERK Gender Identity Not on file Sexual [...] this topic Insurance MEDICARE MEDICARE Care Teams Club Waiter/Waitress Relationship Specialty Start Date End Date Bernadette Cedillo MD [address] [place] [address] [facility] - General 06/22/21
--- OUTSIDE RECORDS SUMMARY | 2024-06-29 12:24 | XMS_ITS | Clinical Summary ---
Author Organization [facility] Address [address] [place] [address] Care Team Providers Care Patent Engineer Name Role Phone Kennedi Salcedo MD Primary Care Provider [phone] Bernadette Cedillo MD Unavailable David Michaud MD Unavailable Allergies Active Allergy Reactions Criticality Noted Date [...] Noted Date Diagnosed Date Acute respiratory failure ([facility]) 02/13 Non-small cell cancer of left lung ([facility]) 07/12/2019 Other osteoporosis without current pathological fracture 02/18/2019 Malignant neoplasm of overla pping 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, estrogen receptor positive ([facility]) 03/12/2018 Social History Tobacco Use [...] any clubs o r organizations such as mandaeism groups, unions, fraternal or athletic groups, or [...] and heating? Not hard at all 02/23/2020 [facility] - Occupational [...] Sex Assigned at Female 02/23/2020 11:09 PM DISASTER RESPONSE DIRECTOR Legal Sex Female 5:19 PM CDT Gender Identity Female 02/23/2020 11:09 PM DISASTER RESPONSE DIRECTOR Sexual Orientation Straight 02/23/2020 11 :09 PM DISASTER RESPONSE DIRECTOR Last Filed Vital Signs Vital Sign Reading [...] 09/04/2012 Dexa Scan (General) 09/04/2012 Pneumococcal Vaccine: 50+ Years (2 of 2 - PPSV23) 12/23/2019 10/28/2019, 11/18/2015 RSV Immunization or 60+ [...] VE NON-REACTI VE 10/19/2016 6:25 PM CDT [facility] Comment: TESTING PERFORMED [facility] [place] [address] SERUM OR PLASMA SPECIMEN / Unknown 10/19/2016 9:12 AM CDT 10/19/2016 9:22 AM CDT us Generic Conversion Md [facility] Final R esult [facility] [address] [place] [address], [place] [phone] from Last 3 Months or Most Recently Relevant to Health Maintenance Insurance [place] MEDICARE [facility] Advance Directives Documents on File Type Date Recorded 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
--- OUTSIDE RECORDS SUMMARY | 2024-06-29 12:24 | XMS_ITS | Referral Summary ---
Author Organization [facility] Address [address] [place] [address] Care Team Providers Care Fish Hatchery Superintendent Name Role Phone Hernesto Joshi MD Primary Care Provider [phone] Allergies Active Allergy Reactions Criticality Noted Date [...] 1 tablet by mouth daily Active vitamins A,C,N-rlci-mrjokl (ICAPS) 4,296 mcg-226 mg-90 mg capsule Take [...] Given: Not Answered Comments:0.5ppd x 50 years [facility] Utilities Answer Date Recorded In the past 12 months has th e [employer], gas, oil, or water [employer] threatened to shut off services in your [...] often do you attend chur ch or confucianist services? 1 to 4 times per year 11/22/2023 Do you belong to any clubs o r organizations such as sikhism groups, unions, fraternal or athletic groups, or [...] any time in the past 12 m [facility], were you homeless or living in a [...] on file Legal Sex Female 5:21 PM SOCIAL SERVICES COORDINATOR Gender Identity Female 11/22/2023 9:01 AM CDT [...] Treatment Not on file Insurance MEDICARE [facility] MEDICARE [facility] Advance Directives For more information, please contact: [phone] Documents on File Type Date Recorded Patient Air Conditioning Equipment Mechanic Expl anation ADVANCE DIRECTIVE 11/27/2023 12:53 PM Pow er of Microarray Analyst-Medical * LIMITED - No CPR (Latest Code Status on File) Date Activated Date Inactivated Comments 11/22/2023 1:02 AM 11/25/2023 8:45 PM Care Teams Fish Hatchery Superintendent Relationship Specialty Start Date End Date Hernesto Joshi MD [address] [place] [address] PCP - General 06/22/16
--- OUTSIDE RECORDS SUMMARY | 2024-06-29 12:24 | XMS_ITS | Encounter Summary ---
Author Organization [facility] [employer] [facility] Address [address] [place] [address] Care Team Providers Care Etl Informatica Architect Name Role Phone Bernadette Cedillo MD Primary Care Provider Encounter Details Date Type Department Care Team (Late st Contact Info) Description 06/10/2022 Abstract [facility] Oncology and Hematology - [place] [address] [address] Greg Barrow, RN Social History Tobacco Use Types Packs/Day Years Used Date Smoking Tobacco: Every Day Cigarettes 1 55 Smokeless Tobacco: Never Alcohol Use Standard Drinks/Week Comments No 0 (1 standard drink = 0.6 oz pur e alcohol) Comments No Sex and Gender Information Value Date Recorded Sex Assigned at Not on file Legal Sex Female 2:13 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
--- OUTSIDE RECORDS SUMMARY | 2024-06-29 12:24 | XMS_ITS | Clinical Summary ---
Author Organization [facility] Address [address] [place] [address] Care Team Providers Care Trains Service Conductor Name Role Phone Hernesto Joshi MD Primary Care Provider [phone] Allergies Active Allergy Reactions Criticality Noted Date [...] 1 tablet by mouth daily Active vitamins A,C,Y-orjp-frgalr (ICAPS) 4,296 mcg-226 mg-90 mg capsule Take [...] Given: Not Answered Comments:0.5ppd x 50 years [facility] Utilities Answer Date Recorded In the past 12 months has e electric, gas, oil, or water [employer] threatened to shut off services in your [...] often do you attend chur ch or orthodoxy services? 1 to 4 times per year 11/22/2023 Do you belong to any clubs o r organizations such as roman catholic groups, unions, fraternal or athletic groups, or [...] any time in the past 12 m [facility], were you homeless or living in a intermediate (including now)? No 11/22/2023 Personal Safety Answer Date Recorded Have you ever been in or are you currently in a harmful physical or emotional relationship or is someone making you feel afraid or unsafe? 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 Gender Identity Female 11/22/2023 9:01 AM CDT [...] 11/18/2015, 07/22/2013, Additional history exists Insurance MEDICARE [employer] [facility] MEDICARE [facility] Advance Directives For more information, please contact: [phone] Documents on File Type Date Recorded Patient Telephone Switchboard Operator Expl anation ADVANCE DIRECTIVE 11/27/2023 12:53 PM Pow er of Chief Learning Officer-Medical * LIMITED - No CPR (Latest Code Status on File) Date Activated Date Inactivated Comments 11/22/2023 1:02 AM 11/25/2023 8:45 PM Care Teams Trains Service Conductor Relationship Specialty Start Date End Date Hernesto Joshi MD [address] [place] [address] PCP - General 06/22/16
--- OUTSIDE RECORDS SUMMARY | 2024-06-29 12:24 | XMS_ITS | Encounter Summary ---
Author Organization [facility] Address [address] [place] [address] Care Team Providers Care Child And Family Services Worker Name Role Phone Bernadette Cedillo MD Primary Care Provider [phone] Encounter Details Date Type Department Care Team (Late st Contact Info) Description 11/14/2022 Lab Requisition [facility] - Pathology Lab [address] [place] [address] Rocco Roblero MD [address] [address] Illness, unspecified Social History Tobacco Use Types Packs/Day Years Used Date Smoking Tobacco: Never Assessed Comments Unknown Sex and Gender Information Value Date Recorded Sex Assigned at Not on file Legal Sex Female 3:53 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 Storage iron is decreased. Correlation with clinical findings and relevant cytogenetic/molecular testing is required. 11/14/2022 10:58 AM [facility] Peripheral Smear Description CBC Data: WBC - 7.9, Hgb - 8.3, MCV - 105.6, MCHC - 31, and Platelets - 172. Leukocyte number: normal. Granulocyte morphology: normal. Lymphocyte morphology: normal. Erythrocyte number: decreased. Erythrocyte morphology: macrocytic. Anisopoikilocytosis: mild. Polychromasia: mild. Platelet number: normal. Platelet morphology: normal. 11/14/2022 10:58 AM [facility] Bone Marrow Aspirate Differential [...] Control is appropriately reactive. 11/14/2022 10:58 AM [facility] Bone Marrow Core Biopsy [...] (by special stain): decreased. 11/14/2022 10:58 AM [facility] Flow Cytometry Summary Concurrent flow cytometry ([id number]) shows no clonal B-cell population or increase in blasts. 11/14/2022 10:58 AM [facility] Clinical History 77 year old woman with chronic anemia. 11/14/2022 10:58 AM T [facility] Materials Received Received are 20 slides and 3 blocks labeled [id number] along with a copy of the outside pathology report. The materials originate from [place] [address]. All original materials are returned to the referring institution, along with a copy of our final report. 11/14/2022 10:58 AM [facility] Pathologist Location at [facility] 11/14/2022 10:58 AM [facility] Disclaimer The performance characteristics of all immunohistochemical and indirect immunofluorescence stains (if any) cited in this report were determined by the Histopathology Laboratory of [facility]. Some of these tests [...] the attending (teaching) pathologist. 11/14/2022 10:58 AM [facility] Embedded Images 11/14/2022 10:58 AM CDT [facility] Pathology/Cytology BONE MARROW SPECIMEN / Unknown 11/10/2022 9:00 AM CDT 11/14/2022 9:45 AM CDT Miscellaneous samples (specimen) BONE MARROW SPECIMEN / Unknown 11/10/2022 9:00 AM CDT 11/14/2022 9:59 AM CDT us Rocco Roblero MD LAB - PATHOLOGY/CYTOLOGY ORDERAB LES Final Result [facility] [address] [facility] [place] [address], [facility] [phone] documented in this encounter Visit Diagnoses Diagnosis Illness, unspecified documented in this encounter Care Teams Child And Family Services Worker Relationship Specialty Start Date End Date Bernadette Cedillo MD [address] [place] [address] PCP - General 06/22/21 documented as of this encounter
--- OUTSIDE RECORDS SUMMARY | 2024-06-29 12:24 | XMS_ITS | Encounter Summary ---
Author Organization [employer] Address [address] [place] [address] Care Team Providers Care Cloud Physicist Name Role Phone Bernadette Cedillo MD Primary Care Provider [phone] Encounter Details Date Type Department Care Team (Late st Contact Info) Description 07/29/2019 Chart Note [facility] Radiation Therapy [address] [place] [id number] [place] [address] [place] [address] Social History Tobacco Use Types Packs/Day Years Used Date Smoking Tobacco: Every Day Cigarettes 1 55 Smokeless Tobacco: Never Alcohol Use Standard Drinks/Week Comments No 0 (1 standard drink = 0.6 oz pur e alcohol) Comments No Sex and Gender Information Value Date Recorded Sex Assigned at Not on file Legal 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
--- OUTSIDE RECORDS SUMMARY | 2024-06-29 12:24 | XMS_ITS | Encounter Summary ---
Author Organization [facility] Address [address] [facility] [place] [address] Care Team Providers Care Combine Operator Name Role Phone Bernadette Cedillo MD Primary Care Provider [phone] Encounter Details Date Type Department Care Team (Late st Contact Info) Description 11/14/2022 Lab Requisition [facility] - Pathology Lab [address] [place] [address] Rocco Roblero MD [address] [address] Illness, unspecified Social History Tobacco Use Types Packs/Day Years Used Date Smoking Tobacco: Never Assessed Comments Unknown Sex and Gender Information Value Date Recorded Sex Assigned at Not on file Legal Sex Female 3:53 PM NO EXPERIENCE Gender Identity Not on file Sexual Orientation Not on file documented as of this encounter Plan of Treatment Not on file documented as of this encounter Visit Diagnoses Diagnosis Illness, unspecified documented in this encounter Care Teams Combine Operator Relationship Specialty Start Date End Date Bernadette Cedillo MD [address] [place] [address] PCP - General 06/22/21 documented as of this encounter
--- OUTSIDE RECORDS SUMMARY | 2024-06-29 12:24 | XMS_ITS | Encounter Summary ---
Author Organization [facility] Address [address] [place] [address] Care Team Providers Care Quality Improvement Manager Name Role Phone Bernadette Cedillo MD Primary Care Provider [phone] Encounter Details Date Type Department Care Team (Late st Contact Info) Description 11/10/2022 Lab Requisition [facility] - Pathology Lab [address] [place] [address] Rocco Roblero MD [address] [address] Anemia, unspecified Social History Tobacco Use Types Packs/Day Years Used Date Smoking Tobacco: Never Assessed Comments Unknown Sex and Gender Information Value Date Recorded Sex Assigned at Not on file 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 Gender Identity Not on file Sexual Orientation [...] AM CDT) Case Report Flow Cytometry Case: [id number] Authorizing Provider: Rocco Roblero MD Collected: 11/10/2022 09:00 AM Ordering Location: [facility] Care Pathology Lab Received: 11/10/2022 11:47 AM Pathologist: Flaco Dejesus MD Specimen: Bone Marrow 11/10/2022 1:57 PM CDT [facility] Final Diagnosis Bone marrow, flow cytometric immunophenotypic analysis: - no clonal B-cell population or increase in blasts - small population of myeloid blasts (3% of events) and of hematogones (2%) identified - see interpretation 11/10/2022 1:57 PM [facility] Flow Cytometry Interpretation Viability: 86% Barrett: lymphocytes 10%, dimCD45 12%, granulocytes 72%, monocytes 5%. Lymphocytes: - B-cells (16% of lymphocyte gate): polytypic by [place]:lambda light chain expression (K:L 2:1) - T-cells (94%): no immunophenotypic aberrancy detected Dim CD45 gate: - Blasts: detected, 3% of all events, express CD34, CD13, CD33 with sheet pile hammer operator pattern of maturation - Hematogones: detected, 2% of all events, CD19 and CD10 A bone marrow aspirate smear prepared from the flow cytometry specimen has been reviewed for software quality assurance analyst purposes. 11/10/2022 1:57 PM [facility] Flow Cytometry Results Differential Result Comment Flow Cell Count /uL 84,000 Total Viability % 86.0 Lymphocytes % 10 Dim CD45 Region % 12 Monocytes % 5 Granulocytes % 72 11/10/2022 1:57 PM [facility] Reason for test Anemia, unspecified 285.9 11/10/2022 1:57 PM [facility] Client Specimen ID # [id number] 11/10/2022 1:57 PM [facility] Number of markers 10 were performed. A-2 Flow CD10 A-3 Flow CD13 A-5 Flow CD20 A-1 Flow CD5 A-4 Flow CD19 A-6 Flow CD33 A-7 Flow CD34 A-8 Flow CD45 A-9 [place]+CD19+ A-10 Lambda+CD19+ 11/10/2022 1:57 PM [facility] Pathologist Location at [facility] 11/10/2022 1:57 PM [facility] Disclaimer Test performed at [facility], [address] [place] [address], [address]. The established laboratory minimum viability is 70%. [...] complexity clinical testing. 11/10/2022 1:57 PM CDT [facility] PATH[facility] LAB Embedded Images 1:57 PM CDT [facility] Pathology/Cytolo gy BONE MARROW SPECIMEN / Unknown 11/10/2022 9:00 AM CDT 11/10/2022 11:47 AM CDT Rocco Roblero MD LAB - PATHOLOGY/CYTOLOGY ORDERAB LES Final Result [facility] LAB [address] [phone] documented in this encounter Visit Diagnoses Diagnosis Anemia, unspecified documented in this encounter Care Teams Quality Improvement Manager Relationship Specialty Start Date End Date Bernadette Cedillo MD [address] [place] [address] PCP - General 06/22/21 documented as of this encounter
--- OUTSIDE RECORDS SUMMARY | 2024-06-29 12:24 | XMS_ITS | Encounter Summary ---
Author Organization [facility] Lizama Bawte Address [address] [place] [address] Care Team Providers Care Logistics Specialist Name Role Phone Bernadette Cedillo MD Primary Care Provider [phone] Encounter Details Date Type Department Care Team (Late st Contact Info) Description 01/23/2023 Abstract [facility] Oncology and Hematology - [address] [address] Colette Cage, STEVE Social History Tobacco Use Types Packs/Day Years Used Date Smoking Tobacco: Every Day Cigarettes 1 55 Smokeless Tobacco: Never Alcohol Use Standard Drinks/Week Comments No 0 (1 standard drink = 0.6 oz pur e alcohol) Comments No Sex and Gender Information Value Date Recorded Sex Assigned at Not on file Legal Sex Female 2:13 PM 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
--- OUTSIDE RECORDS SUMMARY | 2024-06-29 12:24 | XMS_ITS | Continuity of Care Document ---
Author Organization [facility] Address [address] [facility] [address] [place] [address] Phone Care Team Providers Care Autocutter Name Role Phone Chevy Keith MD Unavailable [...] CATARACT SURG W/IOL, 1 STAGE OFFICE/OUTPATIENT VISIT, [facility] OPHTHALMIC BIOMETRY OPHTHALMIC BIOMETRY Advance Directives Directive Yes / No Effective Date File Name No Information Encounters Encounter Description Practice Location Reason(s) For Visit Diagnoses Date Provider Providers Copied on Encounter [facility], [address] [place] [address], [id number], tel:[phone] [address] [place] [address] [facility] No Information 3 Sagar Reece. [address], [address], [place], [place], [id number] , [place]. tel:[phone] Referring Provider: Chevy Shelley, [address], [place], [address] . tel:[phone] [facility], [address] [place] [address], [id number], tel:[phone] O[facility] Consult [facility] No Information 3 Sagar Reece. [address], [place], [id number] , [place]. tel:[phone] Referring Provider: Chevy Shelley, [address], [place], [address] . tel:[phone] [facility], [address] [place] [address], [place], [place], [id number], tel:[phone] [address] [place] [address] No Information 3 Sagar Reece. [address], [address], [id number] , [place]. tel:[phone] Referring Provider: Chevy Shelley, [address], [place], [address] . tel:[phone] OFFICE/OUTPA TIENT VISIT, [facility], [address] [place] [address], [id number], tel:[phone] OPH CONSULT ADITYA PEREZ Senile nuclear sclerosisMacular degeneration (senile) of retina, unspecified 3 Sagar Reece. [address], [id number] , [place]. tel: [phone] Referring Provider: Chevy Shelley, [address], [place], [address] . tel:[phone] Family History Family Member Type Diagnosis Age At Onset Problem (finding) Family history of degenerative disorder of macula Problem (finding) Family history of Diabe donovan mellitus Problem (finding) Family history of glauc rush Payers Payer name Insurance type Covered alliance party ID Authoriza tion(s) [employer] Medicare MB [id number] [employer] [facility] CI [id number] Social History Type Description Quantity Date Captured [...]
[2024-06-29 15:24] VITALS: PULSE 95; RESP 28
[2024-06-29] MEDS: HYDROmorphone HCL/PF (*CRX) 50 MG in SODIUM CHLORIDE 0.9% IV 95 ML IV CONT (15:24)
[2024-06-29] MEDS: diazePAM INJ (*CRX) 10 MG/2 ML SYRINGE 5 MG IV PUSH (15:54)
--- NOTE | 2024-06-29 16:42 | P.HP_ITS ---
H&P: HPI History of Present Illness Date/Time: 06/29/24 16:42 Chief Complaint: Uncontrolled pain Narrative: 78-year-old female was admitted [facility] June 19 with increasing dyspnea and weakness. She had completed therapy for lung cancer. She was being treated with Procrit intermittently for anemia of chronic kidney disease. She had previously survived breast cancer. Upon admission her stool was Hemoccult positive and her hemoglobin was 4.7.. 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 This was cauterized. She had diverticulosis as well as internal hemorrhoids with no active bleeding. This improved with transfusions and without evidence of active bleeding. Creatinine improved from 1.42-1.18 with hydration. She was also leydi ated for hypercalcemia of malignancy with calcium as high as 12.1 treated with 70 units of calcitonin. This improved to 11.7. She was also malnourished with an albumin of 2.7. Also note that at home she wears 4 L of oxygen by nasal cannula. Review of Systems Review of Systems: ROS unobtainable: Yes unobtainable due to medical condition [facility] Past Medical History Medical History (Updated 06/29/24 @ 16:53 by Osman Quigley MD) Acute on chronic anemia Dysfunction of left eustachian tube Abnormal findings on diagnostic imaging of other specified body structures Cerumen debris on tympanic membrane of both ears Acute and chronic respiratory failure with hypoxia Hypertension Pleural effusion Chronic renal insufficiency, stage III (moderate) Pneumonia PVD (peripheral vascular disease) Colon polyp Psoriatic arthritis Dependence on continuous supplemental oxygen Other specified counseling GERD (gastroesophageal reflux disease) Tobacco abuse Lung cancer Encounter for medication management Neuropathy Anxiety Arthritis Breast cancer COPD (chronic obstructive pulmonary disease) Irritable bowel disease Surgical History Surgical History S/P lumpectomy of breast History of tonsillectomy Hx of cholecystectomy History of liver biopsy H/O cataract extraction History of appendectomy History of knee replacement History of carpal tunnel release History of lung surgery Family History Family History Mother Diabetes mellitus Family history of lung cancer Family history of malignant neoplasm of uterus Family history of psoriasis Family history of malignant neoplasm Sibling Diabetes mellitus Father Family history of chronic obstructive pulmonary disease Family history of lung cancer Hypertension Family history of cardiovascular disease Grandparent Family history of malignant neoplasm of uterus Family history of coronary artery disease Social History Social History (Updated 06/29/24 @ 16:50 by Osman Quigley MD) Social History: Code Status: DNR Smoking packs per day: 0.5 Smoking cigarettes per day: 10.0 Years smoked: 50 Smoking pack-years: 25.00 Smoking status: Former smoker Second hand tobacco smoke exposure: Yes Smoking end date: 04/22/24 Alcohol intake: never Substance use: never Substance use type: does not use Do You Feel Safe in your Home?: Yes Lack of Transportation: No Lack of Food: Never True Current Housing: I Have Housing Concerned About Future Housing: No Difficulty Paying Gas/Electric Bills: No Difficulty Paying for Meds: No Currently Unemployed: No Education: High School Diploma/GED Difficulty w/ Childcare or Family Care: No Living arrangements: with family Occupation/Education: retired Gender identity (if verbalized by the patient): Female Spiritual care concerns: No Agree to blood products: Yes Meds Home Medications and Allergies Home Medications Medication Instructions Recorded Confirmed Type aspirin 81 mg tablet,delayed 81 mg PO DAILY 01/03/19 06/17/24 History release (Ian Low Dose Aspirin) udnsblqw-qeqgaxn-worp-lutein tablet 1 tablet PO DAILY 06/04/19 06/17/24 History cholecalciferol (vitamin D3) 25 25 mcg PO DAILY 05/12/21 06/17/24 History mcg (1,000 unit) capsule vit C 250 mg-vit E 90 mg-zinc 40 1 tablet PO BID 06/30/22 06/17/24 History mg-copper 1 sw-lbvrgr-hbpzjk capsule (PreserVision AREDS-2) anastrozole 1 mg tablet 1 mg PO DAILY 07/14/22 06/17/24 History ipratropium 0.5 mg-albuterol 3 mg 3 ml inhalation BID 11/09/22 06/17/24 History (2.5 mg base)/3 mL nebulization soln ascorbate calcium (vitamin C) 500 500 mg PO DAILY 12/29/22 06/17/24 History mg tablet ferrous sulfate 325 mg (65 mg 650 mg PO DAILY 12/29/22 06/17/24 History iron) tablet (FeroSul) budesonide 160 mcg-glycopyr 9 See Rx Instructions .Route 04/11/23 06/17/24 Rx mcg-formot 4.8 mcg/actuation HFA .COMPLEX #10.7 grams inhaler (Breztri Aerosphere) ixekizumab 80 mg/mL subcutaneous See Rx Instructions .Route 06/22/23 06/17/24 Rx auto-injector (Taltz Autoinjector) .COMPLEX #3 mL palbociclib 100 mg capsule 100 mg PO DAILY 07/18/23 06/17/24 History (Ibrance) pregabalin 150 mg capsule 150 mg PO DAILY #90 caps 09/13/23 06/17/24 Rx folic acid 1 mg tablet 1 mg PO DAILY #90 tabs 01/26/24 06/17/24 Rx acetaminophen 500 mg tablet 1,000 mg PO BID pain 03/11/24 06/17/24 History cholestyramine-aspartame 4 gram 1 ea PO TIDWM PRN IBS 03/11/24 06/17/24 History oral powder for susp in a packet (Prevalite) quetiapine 25 mg tablet 25 mg PO QHS #90 tabs 04/15/24 06/17/24 Rx roflumilast 250 mcg tablet 250 mcg PO EVERY OTHER DAY 05/22/24 06/17/24 History (Daliresp) varenicline tartrate 0.03 mg/spray 1 spray intranasal DAILY 05/22/24 06/17/24 History metered nasal spray (Tyrvaya) vitamin B complex 1 tablet PO DAILY 05/22/24 06/17/24 History duloxetine 30 mg capsule,delayed 30 mg PO DAILY #30 caps 05/27/24 06/17/24 Rx release amoxicillin 875 mg-potassium 1 tablet PO Q12H #28 tabs 06/07/24 06/17/24 Rx clavulanate 125 mg tablet diclofenac sodium 1 % topical gel 2 g topical QID PRN pain #100 grams 06/07/24 06/17/24 Rx (Arthritis Pain (diclofenac)) doxycycline hyclate 100 mg tablet 100 mg PO Q12HR #28 tabs 06/07/24 06/17/24 Rx duloxetine 30 mg capsule,delayed 30 mg PO DAILY #0 caps 06/07/24 06/17/24 Rx release (Cymbalta) sennosides 8.6 mg-docusate sodium 2 tab PO BID #0 tabs 06/07/24 06/17/24 Rx 50 mg tablet (Senokot-S) vit C 250 mg-vit E 90 mg-zinc 40 1 tablet PO BID 06/17/24 06/17/24 History mg-copper 1 hu-musaoi-lhvrzs capsule (PreserVision AREDS-2) Allergies Allergy/AdvReac Type Severity Reaction Status Date / Time bupropion (From Wellbutrin) Allergy Intermediate Rash Verified 06/21/24 14:09 adhesive tape Allergy Unknown BLISTERS Verified 06/21/24 14:09 Bleach (Sodium Hypochlorite) Allergy Unknown Itching Verified 06/21/24 14:09 benzocaine (From Tigan (with AdvReac Unknown Unknown Verified 06/21/24 14:09 benzocaine)) trimethobenzamide AdvReac Unknown N/V Verified 06/21/24 14:09 nickel AdvReac Itching Verified 06/21/24 14:09 Vital Signs Vital Signs - 24 hr 06/29/24 15:24 Pulse Rate 95 Respiratory Rate 28 H Exam Narrative: HEENT: Pharyngeal mucosa pink and intact NECK: No JVD CHEST: Coarse breath sounds, using accessory abdominal muscles for respiration HEART: NL S1/S2, regular, no murmur ABDOMEN: BS+, soft, nontender, no mass, no bruits EXTREMITIES: No cyanosis, edema, or clubbing NEUROLOGIC: CN intact and symmetric to inspection. MUSCULOSKELETAL: No gross deformity to visual inspection PSYCH: Sleeping soundly. No response to verbal stimuli. Minimal response to tactile stimuli. Assessment and Plan Assessment and plan (1) Hospice care: Code(s): Z51.5 - Encounter for palliative care Status: Acute Assessment and Plan: * Meets inpatient hospice criteria due to requiring continuous IV hydromorphone for comfort role of pain and dyspnea * P.r.n. palliative regimen ordered * 06/29/2024 Discussed care and prognosis with son, daughter, and daught er-in-law at bedside (2) Lung cancer: Qualifiers: Laterality: left Lung location: lower lobe of lung Qualified Code(s): C34.32 - Malignant neoplasm of lower lobe, left bronchus or lung Code(s): C34.90 - Malignant neoplasm of unspecified part of unspecified bronchus or lung Status: Chronic (3) H/O malignant neoplasm of breast: Code(s): Z85.3 - Personal history of malignant neoplasm of breast Status: Chronic (4) Acute on chronic anemia: Code(s): D64.9 - Anemia, unspecified Status: Acute (5) COPD (chronic obstructive pulmonary disease): Code(s): J44.9 - Chronic obstructive pulmonary disease, unspecified Status: Chronic (6) Acute and chronic respiratory failure with hypoxia: Code(s): J96.21 - Acute and chronic respiratory failure with hypoxia Status: Acute (7) Hypercalcemia: Code(s): E83.52 - Hypercalcemia Status: Acute (8) Hypertension: Code(s): I10 - Essential (primary) hypertension Status: Chronic (9) PVD (peripheral vascular disease): Code(s): I73.9 - Peripheral vascular disease, unspecified Status: Chronic (10) Positive occult stool blood test: Code(s): R19.5 - Other fecal abnormalities Status: Acute
[2024-06-29] MEDS: HYDROmorphone HCL INJ (*CRX) 2 MG/ML VIAL IV PUSH ×2 (17:09→18:28)
[2024-06-29] MEDS: GLYCOPYRROLATE INJ (*SP) 0.2 MG/ML VIAL 0.1 MG IV PUSH (20:14)
--- NOTE | 2024-06-30 17:52 | P.DN_ITS ---
Discharge Summary Date and Time Date of : 06/30/24 Time of : 03:57 Provider Pronounced By: 2 RNs Name of First RN That Pronounced: Natacha Fitch Name of Second RN That Pronounced: Bárbara Muniz Probable Cause of Probable Cause of : Lung Cancer Summary Hospital Course: Admitted to inpatient hospice service for symptom management. Medications were titrated to comfort. Mrs. Gutierrez peacefully. Additional Data Confirmation of as documented by pronouncing clinician: Pupillary Reflex, Palpable Pulses, Response to Stimuli, Heart Tones and Breath Sounds Name of Provider Notified: Nadege Ramirez Time Provider Notified: 04:42 Provider Requests Autopsy: No Family Requests Autopsy: No Cardiovascular Sonographer Notified: Yes Date [facility] Notified of : 06/30/24 Time [facility] Notified of : 04:25
== END 2024-06-30 09:17 | disposition expired | DRG 951 ==
PROVIDERS: Admitting Provider Internal Medicine; PCP Family Medicine; Visit Provider Internal Medicine
DX: Z51.5 Encounter for palliative care (principal); J96.21 Acute and chronic respiratory failure with hypoxia; C34.32 Malignant neoplasm of lower lobe, left bronchus or lung; I12.9 Hypertensive chronic kidney disease with stage 1 through stage 4 chronic kidney disease, or unspecified chronic kidney disease; N18.30 Chronic kidney disease, stage 3 unspecified; D63.1 Anemia in chronic kidney disease; E83.52 Hypercalcemia; J44.9 Chronic obstructive pulmonary disease, unspecified; Z85.3 Personal history of malignant neoplasm of breast
CPT/HCPCS: A9270; J1171; J1596; J3360